=== PATIENT | male | born 1950 | race Two or more races ===

== ENCOUNTER 2025-06-28 12:04 | Inpatient (IN) | payer OTHER ==
[~2025-06-28] VITALS: Ht 172.7 cm; Wt 103.0 kg
[2025-06-28] MEDS: dilTIAZem 25 MG/5 ML VIAL IV ONE (12:48)
--- NOTE | 2025-06-28 12:58 | ED.PDOC ---
History of Present Illness HPI Comments 74M BIBA w/ prior MHx of CVA-Right Sided Deficits,DM, HTN, High Lipids;SHx of Cholecystectomy, Appendectomy and the c/c of Palpitations. EMS report on the pt having SOB/palpitations for the past 3 days. Pt went to [facility] for palpitations and they called EMS for when they arrived on scene the pt had a HR of 180 AFIB RVR. En route to the ED the pt's HR was "floating in the 150's". EMS note that the pt has not been taking his metoprolol medication for the past 3 months. Denies any other symptoms at this time. Denies chills, fever, N/V/D. Denies any other associated symptom's, modifiers, or recent injuries or sick contact at this time. Chief Complaint: Palpitations Time Seen by MD: 12:55 Reviewed Notes: Nurses Notes, Medications, Allergies Allergies: Coded Allergies: NO KNOWN ALLERGIES (Unverified , 06/28/25) Information Source: Patient, Emergency Med Personnel Mode of Arrival: EMS Severity: Moderate Timing: Days Duration: Since onset, Days Prehospital treatment: None Past Medical History PAST MEDICAL HISTORY: CVA (right sided deficit), DM, High Lipids, HTN Surgical History: Appendectomy, Cholecystectomy Family History Family History: Reviewed,noncontributory to illness, Unknown Social History Smoker: Non-Smoker Alcohol: Denies ETOH Use Drugs: Denies Drug Use Lives In: Home Constitutional: denies: chills, diaphoresis, fatigue, fever, malaise, sweats, weakness, others EENTM: denies: blurred vision, double vision, ear bleeding, ear discharge, ear drainage, ear pain, ear ringing, eye pain, eye redness, hearing loss, mouth pain, mouth swelling, nasal discharge, nose bleeding, nose congestion, nose pain, photophobia, tearing, throat pain, throat swelling, voice changes, others Respiratory: reports: shortness of breath; denies: cough, hemoptysis, orthopnea, SOB at rest, SOB with excertion, stridor, wheezing, others Cardiovascular: reports: chest pain, palpitations; denies: dizzy spells, di aphoresis, Dyspnea on exertion, edema, irregular heart beat, left arm pain, lightheadedness, PND, syncope, others Gastrointestinal: denies: abdomen distended, abdominal pain, blood streaked bowels, constipated, diarrhea, dysphagia, difficulty swallowing, hematemesis, melena, nausea, poor appetite, poor fluid intake, rectal bleeding, rectal pain, vomiting, others Genitourinary: denies: burning, dysuria, flank pain, frequency, hematuria, incontinence, penile discharge, penile sore, pain, testicle pain, testicle swelling, urgency, others Neurological: denies: dizziness, fainting, headache, left sided numbness, left sided weakness, numbness, paresthesia, pre-existing deficit, right sided numbness, right sided weakness, seizure, speech problems, tingling, tremors, weakness, others Musculoskeletal: denies: back pain, gout, joint pain, joint swelling, muscle pain, muscle stiffness, neck pain, others Integumetry: denies: bruises, change in color, change in hair/nails, dryness, laceration, lesions, lumps, rash, wounds, others Allergic/Immunocompromised: denies: Difficulty Healing, Frequent Infections, Hives, Itching, others Hematologic/Lymphatic: denies: anemia, blood clots, easy bleeding, easy bruising, swollen glands, others Endocrine: denies: excessive hunger, excessive sweating, excessive thirst, excessive urination, flushing, intolerance to cold, intolerance to heat, unexplained weight gain, unexplained weight loss, others Psychiatric: denies: anxiety, bipolar disorder, depression, hopeless, panic disorder, schizophrenia, sleepless, suicidal, others All Other Systems: Reviewed and Negative Physical Exam General Appearance: Moderate Distress HEENT: Normal ENT Inspection, Pharynx Normal, TMs Normal Neck: Full Range of Motion, Non-Tender, Normal, Normal Inspection Respiratory: Chest Non-Tender, Lungs Clear, No Accessory Muscle Use, No Respiratory Distress, Normal Breath Sounds Cardiovascular: Irregular, No Edema, No JVD, No Murmur, No Gallop, Tachycardia Breast Exam: Deferred Gastrointestinal: No Organomegaly, Non Tender, No Pulsatile Mass, Normal Bowel Sounds, Soft Genitalia: Deferred Pelvic: Deferred Rectal: Deferred Extremities: No calf tenderness, Normal capillary refill, No pedal edema Musculoskeletal : Apperance: Normal Neurologic: Alert, document control clerk II-XII nml as Tested, Motor Weakness, Normal Affect, Normal Mood, No Sensory Deficits Cerebellar Function: Unable to Test Reflexes: Normal Skin: Dry, Pallor, Warm Lymphatic: No Adenopathy Was a procedure done? Was a procedure done?: No EKG EKG : Pulse Rate (adult): 123 [place]: Normal Cardiac Rhythm: Afib ST: Nonsp Differential Dx Considerations may include: Non STEMI, atrial fibrillation with rapid response, generalized weakness, electrolyte imbalance X-Ray, Labs, Meds, VS Vital Signs Date Time Temp Pulse Resp B/P (MAP) Pulse Ox O2 Delivery O2 Flow Rate FiO2 06/28/25 12:59 123 06/28/25 12:27 98.1 185 20 169/72 100 98.1 06/28/25 12:04 152 Lab Test 06/28/25 14:30 06/28/25 13:30 Range/Units Troponin I High Sensitivity 542 *H 461 *H </=54 ng/L White Blood Count 8.8 4.4-10.8 10^3/uL Red Blood Count 4.96 4.5-5.90 10^6/uL Hemoglobin 13.7 13.5-17.5 g/dL Hematocrit 41.4 41.0-53.0 % Mean Corpuscular Volume 83.4 80.0-100.0 fL Mean Corpuscular Hemoglobin 27.7 L 28.0-32.0 pg Mean Corpuscular Hemoglobin Concent 33.2 32.0-36.0 g/dL Red Cell Distribution Width 14.4 H 11.8-14.3 % Platelet Count 219 140-450 10^3/uL Mean Platelet Volume 8.8 6.9-10.8 fL Neutrophils (%) (Auto) 77.2 37.0-80.0 % Lymphocytes (%) (Auto) 16.8 10.0-50.0 % Monocytes (%) (Auto) 5.3 0.0-12.0 % Eosinophils (%) (Auto) 0.3 0.0-7.0 % Basophils (%) (Auto) 0.4 0.0-2.0 % Neutrophils # (Auto) 6.8 1.6-8.6 10 ^3/uL Lymphocytes # (Auto) 1.5 0.4-5.4 10 ^3/uL Monocytes # (Auto) 0.5 0-1.3 10 ^3/uL Eosinophils # (Auto) 0 0-0.8 10 ^3/uL Basophils # (Auto) 0 0-0.2 10 ^3/uL Nucleated Red Blood Cells 0.0 % Sodium Level 131 L 136-145 mmol/L Potassium Level 4.3 3.5-5.1 mmol/L Chloride Level 98 98-107 mmol/L Carbon Dioxide Level 20 20-31 mmol/L Anion Gap 13 5-15 Blood Urea Nitrogen 13 9-23 mg/dL Creatinine 1.27 0.700-1.30 mg/dL Glomerular Filtration Rate Calc 60 >90 mL/min BUN/Creatinine Ratio 10.2 10.0-20.0 Serum Glucose 295 H 74-106 mg/dL Calcium Level 9.0 8.7-10.4 mg/dL Magnesium Level 1.7 1.6-2.6 mg/dL B-Type Natriuretic Peptide 302.02 0-100 pg/mL Current Medications Medications (Trade) Dose Ordered Sig/Jesse Route Start Time Stop Time Status Last Admin Aspirin 162 mg ONCE ONCE PO 06/28/25 12:30 06/28/25 12:31 DC 06/28/25 12:48 Diltiazem HCl (Cardizem Injection) 10 mg ONCE ONCE IV 06/28/25 12:30 06/28/25 12:31 DC 06/28/25 12:48 IV Hep-Lock was established. The patient's CBC is within normal limits. The chemistry panel is within normal limits except for hyperglycemia at 295 The BNP is 302.02 The chest x-ray was done and shows: There is no sign of any abnormalities The patient's initial heart rate was in the 185 range The patient's heart rate has now come down to 119 on Cardizem of 10 mg IV push The patient is being started on a Cardizem drip. The patient will be admitted to the hospitalist A cardiology consult will be obtained Critical Care involved bedside management of the patient and consultation with the hospitalist Critical Care involved evaluation of the imaging as well as the laboratory results. The patient will be admitted at this time The patient is also being started on a heparin drip secondary to possible non STEMI Images Reviewed?: Images reviewed and evaluated by me Time of 1ST Reevaluation: 13:25 Reevaluation 1ST: Unchanged Patient Education/Counseling: Diagnosis, Treatment, Prognosis Family Education/Counseling: No Family Present SEPSIS Sepsis Screen Physician Orders Electrocardigram (06/28/25 12:15) Electrocardigram (06/28/25 13:15) Electrocardigram (06/28/25 15:15) Chest Portable (06/28/25 12:29) Heplock Iv (06/28/25 12:29) Director Of Product Development (06/28/25 12:29) Blood Pressure (06/28/25 12:29) Pulse Oximetry (06/28/25 12:29) Urinalysis (06/28/25 12:29) Troponin-I Hs (06/28/25 15:29) Vital Signs Date Time Temp Pulse Resp B/P (MAP) Pulse Ox O2 Delivery O2 Flow Rate FiO2 06/28/25 12:59 123 06/28/25 12:27 98.1 185 20 169/72 100 98.1 06/28/25 12:04 152 Laboratory Tests Test 06/28/25 13:30 White Blood Count 8.8 10^3/uL (4.4-10.8) Medications Medications Dose Ordered Sig/Jesse Route Start Time Stop Time Status Last Admin Dose Admin Aspirin 162 mg ONCE ONCE PO 06/28/25 12:30 06/28/25 12:31 DC 06/28/25 12:48 Diltiazem HCl 10 mg ONCE ONCE IV 06/28/25 12:30 06/28/25 12:31 DC 06/28/25 12:48 Departure 1 Departure Time of Disposition: 16:46 Impression: Primary Impression: Atrial fibrillation with rapid ventricular response Additional Impressions: Acute myocardial ischemia Non-STEMI (non-ST elevated myocardial infarction) Disposition: 09 ADMITTED INPATIENT Admit to: ICU Condition: Fair Critical Care Note Critical Care Time?: Yes (55 min-critical care time only) Stability Stability form required: No Heart Score Heart Score: Heart Score Response (Comments) Value History Moderate Suspicious 1 EKG Repolarization Disturb 1 Age >65 2 Risk Factors >3 or Hx ASHD 2 Troponin Normal limit 0 Total 6 I personally scribed for ELISA SILVER MD ([email or web address]) on 06/28/25 at 12:58. Electronically submitted by Tr Mejia ([email or web address]). ELISA SILVER MD Jun 28, 2025 12:58
--- NOTE | 2025-06-28 13:14 | DVH ---
INDICATION: Palpitation TECHNIQUE: Frontal view of the chest. COMPARISON: None FINDINGS: . The heart and mediastinal contours are grossly unremarkable. There is no evidence of pleural disea se. The lungs are clear. The bony structures of the chest are intact without fracture. IMPRESSION: 1. No evidence of acute disease.
[2025-06-28 13:30] VITALS: PULSE 110; RESP 24; O2SAT 94
[2025-06-28 13:59] LABS: Hematocrit 41.4 % (41.0-53.0); Hemoglobin 13.7 g/dL (13.5-17.5); Mean Corpuscular Hemoglobin 27.7 pg (28.0-32.0); Mean Corpuscular Volume 83.4 fL (80.0-100.0); Nucleated Red Blood Cells % 0.0 %
[2025-06-28 14:18] LABS: Potassium 4.3 mmol/L (3.5-5.1)
[2025-06-28 14:19] LABS: Anion Gap 13 (5-15)
[2025-06-28 14:20] LABS: Calcium 9.0 mg/dL (8.7-10.4)
[2025-06-28 14:21] LABS: Chloride 98 mmol/L (98-107); Sodium 131 mmol/L (136-145)
[2025-06-28 14:22] LABS: Carbon Dioxide 20 mmol/L (20-31)
[2025-06-28 14:25] LABS: BUN/Creatinine Ratio 10.2 (10.0-20.0); Blood Urea Nitrogen 13 mg/dL (9-23); Magnesium 1.7 mg/dL (1.6-2.6)
[2025-06-28 14:28] LABS: Glucose 295 mg/dL (74-106)
[2025-06-28 17:53] LABS: INR 1.19 (0.9-1.15); Partial Thromboplastin Time 45.1 SEC (24.5-34.5); Prothrombin Time 12.4 sec (9.3-11.8)
[2025-06-28 18:23] LABS: Urine Protein, UAD Negative (Negative)
[2025-06-28] MEDS: HEPARIN DRIP/D5W 100UNITS/ML 250 ML IV SCH (18:36)
[2025-06-28] MEDS ORDERED: DEXTROSE (50%) 50ML SYRG IV PRN (19:15)
[2025-06-28] MEDS ORDERED: NITROGLYCERIN 0.4 MG SL TAB SL PRN (19:15)
[2025-06-28] MEDS ORDERED: ONDANSETRON HCL 4 MG/2 ML VIAL IV PRN (19:15)
[2025-06-28] MEDS ORDERED: MORPHINE SULFATE INJ 2 MG/ml SYRG IV PRN (19:15)
--- NOTE | 2025-06-28 19:19 | ECG ---
[facility] Test Date: 2025-06-28 Test Time: 12:03:53 Pat Name: DIVYA GIARLDO Department: [facility] ED Patient ID: [facility]-[id number] Room: [address] Gender: M Vision Mixer: : 1950 Requested By: EMERGENCY EMERGENCY Order Number: [id number] Reading MD: Paul Mtz Measurements Intervals [place] Rate: 152 P: 0 [place]: 48 QRS: -63 QRSD: 110 T: 83 QT: 316 QTc: 503 Interpretive Statements Supraventricular tachycardia Markedly posterior QRS axis Anteroseptal infarct, old Nonspecific T abnormalities, lateral leads Electronically Signed On 07-03-2025 14:19:17 PDT by Paul Mtz Please click the below link to view image of tracing.
--- NOTE | 2025-06-28 19:20 | ECG ---
[facility] Test Date: 2025-06-28 Test Time: 12:59:07 Pat Name: DIVYA GIRALDO Department: [facility] ED Patient ID: [facility]-[id number] Room: 024[facility] Gender: M Brush Or Broom Cutter: : 1950 Requested By: EMERGENCY EMERGENCY Order Number: [id number] Reading MD: Paul Mtz Measurements Intervals [place] Rate: 123 P: 0 SD: 0 QRS: -44 QRSD: 105 T: 115 QT: 361 QTc: 517 Interpretive Statements Atrial fibrillation Left axis deviation Anteroseptal infarct, old Nonspecific T abnormalities, lateral leads Prolonged QT interval Electronically Signed On 07-03-2025 14:20:02 PDT by Paul Mtz Please click the below link to view image of tracing.
[2025-06-28 20:28] VITALS: PULSE 115; RESP 22; O2SAT 93
[2025-06-28] MEDS: InsuLIN REG 1unit/0.01ml Soln (100units/ml) SC SCH (21:59)
[2025-06-28] MEDS: ACCU-CHEK COMFORT CURVE STRIP VI SCH (21:59)
--- NOTE | 2025-06-28 23:15 | DVHHP2 ---
History of Present Illness Reason for Visit: Palpitations History of Present Illness 74-year-old male presents for evaluation of palpitations. Patient endorses a two day history of palpitations with associated chest pressure and shortness for breath. On arrival patient was noted to be in AFib with RVR in the 150s. Currently patient is on diltiazem drip with a heart rate controlled in the low 100s. No nausea or vomiting. No other acute complaints reported. Past Medical History Dyslipidemia, hypertension, AFib, diabetes mellitus, CVA with right-sided defi cits Past Surgical History Cholecystectomy, appendectomy Family History Noncontributory Smoke: No ALCOHOL: none Drugs: None Lives: with Family Review of Systems Review of Systems Review of systems are currently negative otherwise addressed in HPI. Allergies: Coded Allergies: NO KNOWN ALLERGIES (Unverified , 06/28/25) Medications Current Medications Medications Dose Ordered Sig/Jesse Route Start Time Stop Time Status Last Admin Dose Admin Heparin Sodium/ Dextrose 250 ml @ 10 mls/hr Q24H IV 06/28/25 17:00 06/28/25 18:36 10 MLS/HR Ondansetron HCl 4 mg Q4HP PRN IV 06/28/25 19:15 Diagnostic Test (Pha) 1 strip ACHS 06/28/25 22:00 06/28/25 21:59 1 STRIP Insulin Human Regular ACHS SC 06/28/25 22:00 06/28/25 21:59 4 UNITS Dextrose 50 ml UD PRN IV 06/28/25 19:15 Nitroglycerin 0.4 mg Q5MINP PRN SL 06/28/25 19:15 Morphine Sulfate 2 mg Q30M PRN IV 06/28/25 19:15 Atorvastatin Calcium 40 mg HS PO 06/29/25 22:00 UNV Diltiazem HCl 100 ml @ 5 mls/hr Q20H IV 06/28/25 23:15 UNV Exam Vital Signs Vital Signs Date Time Temp Pulse Resp B/P (MAP) Pulse Ox O2 Delivery O2 Flow Rate FiO2 06/28/25 21:30 133/62 06/28/25 21:30 97 16 97 06/28/25 20:28 Room Air* 0 21 06/28/25 19:30 97.6 97.6 Exam Gen: 74-year-old male in mild distress. Skin: Warm, dry, normal color and texture, no rash. HEENT: Normocephalic atraumatic, mucous membranes moist and pink. Neck: Cervical and supraclavicular nodes normal without enlargement, trachea is midline, thyroid gland is normal without masses. Pulmonary: Clear to auscultation and percussion bilaterally. Cardiac: Irregular Abdomen: Soft, nontender, nondistended, bowel sounds present all 4 quadrants, no guarding, no rigidity, no organomegaly. Extremities: No cyanosis, clubbing, no edema Neuro: Cranial nerves II through XII grossly intact, normal affect and speech, no focal motor deficits. Labs/Xrays ORDERING PHYSICIAN: ELISA SILVER MD PROCEDURE(s): CXRP - CHEST PORTABLE REASON: Palpitation ORDER NUMBER(s): [id number], ACCESSION NUMBER(s): [id number] INDICATION: Palpitation TECHNIQUE: Frontal view of the chest. COMPARISON: None FINDINGS: . The heart and mediastinal contours are grossly unremarkable. There is no evidence of pleural disease. The lungs are clear. The bony structures of the chest are intact without fracture. IMPRESSION: 1. No evidence of acute disease. ATED BY: GIANFRANCO KOEHLER MD DICTATED DATE/TIME: 06/28/25 1311 Labs Test 06/28/25 21:53 06/28/25 17:14 06/28/25 17:12 06/28/25 13:30 Range/Units POC Glucose 227 H 70-106 mg/dl Prothrombin Time 12.4 H 9.3-11.8 sec Prothrombin Time INR 1.19 H 0.9-1.15 Activated Partial Thromboplast Time 45.1 H 24.5-34.5 SEC Troponin I High Sensitivity 827 *H </=54 ng/L Thyroid Stimulating Hormone (TSH) 1.43 0.55-4.78 uIU/mL Urine Color Colorless Yellow Urine Clarity Clear Clear Urine pH 5.0 5.0-9.0 Urine Specific [place] 1.005 1.001-1.035 Urine Protein Negative Negative Urine Ketones Negative Negative Urine Blood Negative Negative /uL Urine Nitrite Negative Negative Urine Bilirubin Negative Negative Urine Urobilinogen Normal Negative mg/dL Urine Leukocyte Esterase Negative Negative /uL Urine RBC 1 0 - 3 /hpf Urine Microscopic WBC < 1 0-3 /HPF Urine Squamous Epithelial Cells None seen <5 /hpf Urine Bacteria None seen None Seen /hpf Urine Glucose 2+ H Normal mg/dL White Blood Count 8.8 4.4-10.8 10^3/uL Red Blood Count 4.96 4.5-5.90 10^6/uL Hemoglobin 13.7 13.5-17.5 g/dL Hematocrit 41.4 41.0-53.0 % Mean Corpuscular Volume 83.4 80.0-100.0 fL Mean Corpuscular Hemoglobin 27.7 L 28.0-32.0 pg Mean Corpuscular Hemoglobin Concent 33.2 32.0-36.0 g/dL Red Cell Distribution Width 14.4 H 11.8-14.3 % Platelet Count 219 140-450 10^3/uL Mean Platelet Volume 8.8 6.9-10.8 fL Neutrophils (%) (Auto) 77.2 37.0-80.0 % Lymphocytes (%) (Auto) 16.8 10.0-50.0 % Monocytes (%) (Auto) 5.3 0.0-12.0 % Eosinophils (%) (Auto) 0.3 0.0-7.0 % Basophils (%) (Auto) 0.4 0.0-2.0 % Neutrophils # (Auto) 6.8 1.6-8.6 10 ^3/uL Lymphocytes # (Auto) 1.5 0.4-5.4 10 ^3/uL Monocytes # (Auto) 0.5 0-1.3 10 ^3/uL Eosinophils # (Auto) 0 0-0.8 10 ^3/uL Basophils # (Auto) 0 0-0.2 10 ^3/uL Nucleated Red Blood Cells 0.0 % Sodium Level 131 L 136-145 mmol/L Potassium Level 4.3 3.5-5.1 mmol/L Chloride Level 98 98-107 mmol/L Carbon Dioxide Level 20 20-31 mmol/L Anion Gap 13 5-15 Blood Urea Nitrogen 13 9-23 mg/dL Creatinine 1.27 0.700-1.30 mg/dL Glomerular Filtration Rate Calc 60 >90 mL/min BUN/Creatinine Ratio 10.2 10.0-20.0 Serum Glucose 295 H 74-106 mg/dL Calcium Level 9.0 8.7-10.4 mg/dL Magnesium Level 1.7 1.6-2.6 mg/dL B-Type Natriuretic Peptide 302.02 0-100 pg/mL SEPSIS Sepsis Screen Date sepsis recognized/suspect: Jun 28, 2025 Time Sepsis recognized/suspect: 1929 Recent Procedure: No On Antibiotic Therapy: No Respiratory Rate >20: Yes Heart Rate >90: Yes Temp<36 C (96.8 F) or >38.3 C: No SBP <90 or MAP <65 mmHG: No New Acute Mental Status Change: No Is the patient on CPAP, BIPAP,: No Physician Orders Diltiazem 125mg/125ml Bag Kit (Cardizem) (06/28/25 17:00) Heparin Drip/D5w 100units/Ml (06/28/25 17:00) Complete Blood Count (06/29/25 04:00) PTPTT (06/29/25 00:30) Heparin Per Pharmacy Protocol (06/28/25 18:24) * Cardiology Consult (06/28/25 19:13) Basic Metabolic Panel (06/29/25 04:00) Admit (06/28/25 19:13) Ondansetron Hcl (Zofran) (06/28/25 19:15) Cardiac Diet-2gna,Lofat,Lochol (06/29/25 Breakfast) Echo 2d Mode Cardiac Dop (06/28/25 19:13) Condition: Critical (06/28/25 19:13) Bedrest With Bathroom Privileg (06/28/25 19:13) Glucose Blood (Accu-Chek Comfort Curve T (06/28/25 22:00) Insulin R (Human) (Insulin R) (06/28/25 22:00) Dextrose 50% Syringe (06/28/25 19:15) Nitroglycerin Sublingual (Ntrostat Subli (06/28/25 19:15) Morphine Sulfate Injection (06/28/25 19:15) Stat Ekg For Chest Pain (06/28/25 19:13) Notify Of Changes From Base (06/28/25 19:13) Cash Register Operator For 24 Hours (06/28/25 19:13) Emergency Dysrhythmia Protocol (06/28/25 19:13) Rhythm Strips Once Every Shift (06/28/25 19:13) Oxygen By Nasal Cannula (06/28/25 19:13) Troponin-I Hs (06/28/25 23:06) Atorvastatin (Lipitor) (06/28/25 23:15) Atorvastatin (Lipitor) (06/29/25 22:00) Diltiazem 125mg/125ml Bag Kit (Cardizem) (06/28/25 23:15) Vital Signs Date Time Temp Pulse Resp B/P (MAP) Pulse Ox O2 Delivery O2 Flow Rate FiO2 06/28/25 21:30 133/62 06/28/25 21:30 97 16 133/62 (85) 97 06/28/25 21:15 90 31 123/60 (81) 95 06/28/25 21:00 97 38 105/65 (78) 97 06/28/25 20:45 90 31 123/60 (81) 95 06/28/25 20:30 128/56 06/28/25 20:30 85 29 128/56 (80) 98 06/28/25 20:28 115 22 93 Room Air* 0 21 06/28/25 20:15 92 34 117/62 (80) 96 06/28/25 20:00 107 38 124/90 (101) 99 06/28/25 19:45 126 33 107/71 (83) 96 06/28/25 19:30 97.6 115 22 129/72 (91) 93 97.6 06/28/25 18:15 136 23 135/99 (111) 96 06/28/25 18:00 122 16 90/71 (77) 97 06/28/25 17:44 141/83 06/28/25 16:49 123 06/28/25 16:00 111 20 148/88 (108) 97 06/28/25 16:00 117 Laboratory Tests Test 06/28/25 13:30 White Blood Count 8.8 10^3/uL (4.4-10.8) Medications Medications Dose Ordered Sig/Jesse Route Start Time Stop Time Status Last Admin Dose Admin Aspirin 162 mg ONCE ONCE PO 06/28/25 12:30 06/28/25 12:31 DC 06/28/25 12:48 162 MG Diagnostic Test (Pha) 1 strip ACHS 06/28/25 22:00 06/28/25 21:59 1 STRIP Diltiazem HCl 10 mg ONCE ONCE IV 06/28/25 12:30 06/28/25 12:31 DC 06/28/25 12:48 10 MG Diltiazem HCl 125 ml @ 5 mls/hr Q24H ONCE IV 06/28/25 17:00 06/29/25 16:59 06/28/25 17:44 5 MLS/HR Heparin Sodium/ Dextrose 250 ml @ 10 mls/hr Q24H IV 06/28/25 17:00 06/28/25 18:36 10 MLS/HR Insulin Human Regular ACHS SC 06/28/25 22:00 06/28/25 21:59 4 UNITS Assessment/Plan Assessment/Plan Assessment AFib with RVR Elevated troponin rule out NSTEMI Diabetes mellitus Plan Admit the patient to ICU to the hospitalist Continue diltiazem Heparin drip Cardiology consultation Continue treatment per orders Total critical care time excluding procedures performed this 50 minutes. Plan discussed with: Patient My Orders Orders - YOBANY HERNANDEZ Procedure Category Date Status Time * Cardiology Consult CONS 06/28/25 Transmitted 19:13 Basic Metabolic Panel LAB 06/29/25 Verified 04:00 Admit ADMIT 06/28/25 Transmitted 19:13 Ondansetron Hcl PHA 06/28/25 In Process (Zofran) 19:15 Cardiac DIET 06/29/25 Transmitted Diet-2gna,Lofat,Lochol Breakfast Echo 2d Mode Cardiac US 06/28/25 Logged DOP 19:13 Condition: Critical GRADY 06/28/25 In Process 19:13 Bedrest With Bathroom GRADY 06/28/25 In Process Privileg 19:13 Glucose Blood PHA 06/28/25 In Process (Accu-Chek Comfort 22:00 Insulin R (Human) PHA 06/28/25 In Process (Insulin R) 22:00 Dextrose 50% Syringe PHA 06/28/25 In Process 19:15 Nitroglycerin PHA 06/28/25 In Process Sublingual (Ntrostat 19:15 Morphine Sulfate PHA 06/28/25 In Process Injection 19:15 Stat Ekg For Chest GRADY 06/28/25 In Process Pain 19:13 Notify Md Of Changes GRADY 06/28/25 In Process From Base 19:13 Cash Register Operator For GRADY 06/28/25 In Process 24 Hours 19:13 Emergency Dysrhythmia GRADY 06/28/25 In Process Protocol 19:13 Rhythm Strips Once GRADY 06/28/25 In Process Every Shift 19:13 Oxygen By Nasal RT 06/28/25 Transmitted Cannula 19:13 Troponin-I Hs LAB 06/28/25 Logged 23:06 Atorvastatin (Lipitor) PHA 06/28/25 Logged 23:15 Atorvastatin (Lipitor) PHA 06/29/25 Logged 22:00 Diltiazem 125mg/125ml PHA 06/28/25 Logged Bag Kit (Cardizem) 23:15 Date of Service: Jun 28, 2025 Billing Provider: YOBANY HERNANDEZ Common Visit Codes: [id number] CARE 30-74 MIN YOBANY HERNANDEZ Jun 28, 2025 23:15
[2025-06-29] VITALS (88 sets, daily range): BP systolic 63–143; BP diastolic 38–104; PULSE 61–199; RESP 12–36; TEMP 96.8–98.4; O2SAT 30–100
[2025-06-29] MEDS: ATORVASTATIN 20 MG TAB PO ONE
--- NOTE | 2025-06-29 00:41 | ECG ---
[facility] Test Date: 2025-06-29 Test Time: 00:32:20 Pat Name: DIVYA GIRALDO Department: [facility] ED Patient ID: [facility]-[id number] Room: [address] Gender: M Sales Ambassador: LOUISE : 1950 Requested By: YOBANY HERNANDEZ Order Number: [id number] Reading MD: Paul Mtz Measurements Intervals [place] Rate: 101 P: 0 MN: 0 QRS: -66 QRSD: 106 T: 212 QT: 450 QTc: 584 Interpretive Statements Atrial fibrillation Ventricular premature complex LAD, consider left anterior fascicular block Anteroseptal infarct, age indeterminate Lateral leads are also involved Prolonged QT interval Baseline wander in lead(s) I,III,aVL Electronically Signed On 07-03-2025 14:23:35 PDT by Paul Mtz Please click the below link to view image of tracing.
[2025-06-29 00:42] LABS: INR 1.14 (0.9-1.15); Partial Thromboplastin Time 53.2 SEC (24.5-34.5); Prothrombin Time 11.9 sec (9.3-11.8)
[2025-06-29] MEDS: NOREPINEPHRINE 8 MG/250ML KIT 250 ML IV SCH (06:15)
[2025-06-29] MEDS: PHENYLEPHRINE IV 250 ML IV ONE (06:19)
[2025-06-29] MEDS: MIDAZOLAM DRIP 50 mg/50mL 50 ML IV ONE (06:19)
[2025-06-29] MEDS: fentaNYL Drip 2500mCg/250mlNS 250 ML IV ONE (06:19)
[2025-06-29 06:32] LABS: Hematocrit 45.6 % (41.0-53.0); Hemoglobin 14.5 g/dL (13.5-17.5); Mean Corpuscular Hemoglobin 27.3 pg (28.0-32.0); Mean Corpuscular Volume 85.5 fL (80.0-100.0)
[2025-06-29] MEDS: EPINEPHrine HCL 1 MG/10 ML SYRG ONE ×2 (06:32→15:46)
[2025-06-29 06:34] LABS: Chloride 100 mmol/L (98-107); Potassium 3.6 mmol/L (3.5-5.1); Sodium 137 mmol/L (136-145)
[2025-06-29 06:35] LABS: Anion Gap 17 (5-15); Carbon Dioxide 20 mmol/L (20-31)
[2025-06-29] MEDS: fentaNYL Drip 2500mCg/250mlNS 250 ML IV SCH (06:38)
[2025-06-29] MEDS: MIDAZOLAM DRIP 50 mg/50mL 50 ML IV SCH (06:39)
[2025-06-29 06:40] LABS: BUN/Creatinine Ratio 12.1 (10.0-20.0); Blood Urea Nitrogen 15 mg/dL (9-23); INR 1.08 (0.9-1.15); Partial Thromboplastin Time 41.5 SEC (24.5-34.5); Prothrombin Time 11.4 sec (9.3-11.8)
[2025-06-29 06:41] LABS: Calcium 10.7 mg/dL (8.7-10.4); Glucose 327 mg/dL (74-106)
--- NOTE | 2025-06-29 06:57 | DVH ---
CHEST RADIOGRAPH Indication: Intubation. Technique: Single frontal view of the chest was obtained Comparison: XY CHEST PORTABLE on DOS: 06/28/25 FINDINGS: Lines and Tubes: The endotracheal tube terminates 4.2 cm above the kolby Lungs: Bilateral increased interstitial prominence. No focal consolidation. Pleura: No effusion. No pneumothorax. Cardiomediastinal contours: Cardiomegaly. Bones: No acute osseous abnormality. IMPRESSION: 1. Cardiomegaly with mild pulmonary vascular congestion.
[2025-06-29 07:00] LABS: Lactic Acid w/Reflex 7.6 mmol/L (0.4-2.0)
[2025-06-29] MEDS: PHENYLEPHRINE IV 250 ML IV SCH (07:00)
[2025-06-29] MEDS ORDERED: VASOPRESSIN 20 UNITS in SODIUM CHL 0.9% 99 ML IV SCH (07:30)
[2025-06-29 07:44] LABS: Total Cells Counted 100.0 (100)
[2025-06-29 07:45] LABS: RBC Morphology Normal
--- NOTE | 2025-06-29 07:57 | RESUS ---
CODE BLUE ASSESSSMENT History of Events History of Events: 74-year-old male presents for evaluation of palpitations. Patient endorses a two day history of palpitations with associated chest pressure and shortness for breath. On arrival patient was noted to be in AFib with RVR in the 150s. Currently patient is on diltiazem drip with a heart rate controlled in the low 100s. No nausea or vomiting. No other acute complaints reported. Initial Information Date: Jun 29, 2025 Location of Arrest: [place] [facility] Witnessed: Yes CPR started initial time: 05:52 CPR started by whom: Hospital Staff Pre-Hospital Care: ACLS Type of arrest: Cardiac, Adult, Witnessed Spontaneous Respirations: No Pulse Present: No Monitoring: ECG, Pulse Oximetry Crash Cart Opened and Supplies: Yes Airway Ventilation Breathing at Onset: Assisted O2 Sat by Pulse Oximetry: 97 Oxygen Delivery Method: Ambu-Bag Artificial Ventilation: Bag/Endo tube Intubation Time: 06:03 Intubation Size: 8.0 cuffed Intubated by: Dr. Parker Intubation Attempts: 1 Intubated orally: Yes Tube secured at: 26 (@ lip) CO2 indicator used: Yes Confirmation: Auscultation, Chest X-ray Comments: INTUBATED POST CODE- Circulation Circulation #1: Time: 05:52 Pulse Rate (adult): 0 Circulation Comment: Code Blue started- compresssions Circulation #2: Time: 05:54 Pulse Rate (adult): 0 Circulation Comment: asystole Circulation #3: Time: 05:56 Pulse Rate (adult): 174 Circulation Comment: shockackable vfib rythm 120 Circulation #4: Time: 05:58 Pulse Rate (adult): 147 Circulation Comment: ROSC Post code- attempted sync cardioversion Circulation #5: Time: 06:01 Pulse Rate (adult): 0 Circulation Comment: PEA- cpr restarted Circulation #6: Time: 06:03 Pulse Rate (adult): 164 Blood Pressure Systolic: 95 Blood Pressure Diastolic: 46 Circulation Comment: Vfib- shocked at 200 ROSC Defibrillation Defbrillation #1: Time Defibrillator Applied: 05:56 EKG Rhythm: V-Fibrillation Compressions: Manual Defib. Joules: 120 Pulse Present: Yes EKG Rhythm: Atrial Fibrillation Defbrillation #2: Time Defibrillator Applied: 06:03 EKG Rhythm: V-Fibrillation Compressions: Manual Defib. Joules: 200 Pulse Present: Yes EKG Rhythm: Atrial Fibrillation Procedure - IV Procedure - IV #1: IV Side: Left IV Location: Antecubital IV Placed: In Hospital IV Gauge: 20 IV Line Care: Saline Flush Procedure - IV #2: IV Side: Left IV Location: Forearm Anterior IV Placed: In Hospital IV Gauge: 20 Medications & Response Medications and Responses #1: Medication Time: 05:53 ADULT Medications Given ADULT: Epinephrine 1 mg Route of Administration: IV Heart Rate: 0 Medications and Responses #2: Medication Time: 05:56 ADULT Medications Given ADULT: Epinephrine 1 mg, Sodium Bacarbinate 50 meq, Calcium Chloride 10 mL Medications and Responses #3: Medication Time: 06:03 ADULT Medications Given ADULT: Epinephrine 1 mg, Magnesium Sulfate 1 gm Medications and Responses #4: Medication Time: 06:04 ADULT Medications Given ADULT: Amiodarone 150 mg Route of Administration: IV Medication Comment: given post code Heart Rate: 170 EKG Rhythm: Atrial Fibrillation Blood Pressure Systolic: 156 Blood Pressure Diastolic: 101 EKG Rhythm: Atrial Fibrillation Nurses Notes [place] Coma Scale Eye Opening: To Pain (2) [place] Coma Scale Verbal: None (1) [place] Coma Scale Motor: Extensor Response (2) [place] Total: 5 Pupil Reaction: ADDY Bedside Blood Glucose: 313 Nurses Notes - Comment: Intubated sp code. See above. Started on sedation, TLC IJ inserted by Dr. Parker Time Code Ended Time Code Ended: 06:03 Post Arrest Status: Ventilated Outcome of code: Successful Family notified: Yes Code Team Present: Wilma Malcolm RT, Marisela ICU charge, Cande RN Resource, Anna Marie RN, Bao CCT, Guy RN, Kristyn RN Post Resuscitation Neurologica Pupil Size: 3 Comment: equal round reactive, responding to light ROSC Time of ROSC: 06:03 Pt Meets Criteria for Therapeu: KRISTYN Burton Jun 29, 2025 07:57
[2025-06-29 07:58] LABS: Base Excess -6.2 mmol/L (-2.0-3.0)
--- NOTE | 2025-06-29 07:59 | DVH ---
CHEST RADIOGRAPH Indication: central line placement Technique: Single frontal view of the chest was obtained COMPARISON: XY CHEST XRAY 1 VIEW on DOS: 06/29/25, XY CHEST PORTABLE on DOS: 06/28/25 FINDINGS: Lines and Tubes: Endotracheal tube, enteric catheter and right central venous catheter in satisfactor y position. Lungs: Unchanged pulmonary vascular congestion. Pleura: No effusion. No pneumothorax. Cardiomediastinal contours: Unremarkable Bones: Unremarkable IMPRESSION: Right central venous catheter in satisfactory position. No appreciable pneumothorax.
--- NOTE | 2025-06-29 09:35 | CONS ---
Pharmacy Clinical Information: HEPARIN DRIP, ACS PROTOCOL @0611 APTT 41.5- NO BOLUS, NO CHANGE NEXT APTT DRAW SCHEDULED @1200 PER RX PROTOCOL CONFIRMED AND READ BACK WITH RN WEI FOFANA [facility] RESIDENT Jun 29, 2025 09:35
--- NOTE | 2025-06-29 10:14 | DVHINCON2 ---
Date Seen: Jun 29, 2025 Referring Physician Rafa Pedroza NP Reason for Consultation Elevated troponin History of Present Illness Hrady Almanza is a 74-year-old male patient who presents to ED with chief complaint of palpitation three days before his admission. Upon his arrival to the emergency department he was diagnosed with atrial fibrillation with rapid ventricular response and placed on a diltiazem drip to control his heart rate. Patient progressed with cardiac arrest secondary to ventricular arrhythmias (ventricular tachycardia and torsades de Pointe) requiring CPR and ACLS maneuvers (three epinephrine, 300 mg of amiodarone and defibrillation x2) for 8 minutes with endotracheal intubation, obtaining ROSC. Patient initially was placed on amiodarone drip, but then was discontinued and indicated magnesium due to prolonged QT. Due to clinical status obtained history of present illness and past medical history from EMR and who is at bedside. Could not obtain review of systems. Cardiology consulted for elevated troponins. 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 Ex tobacco abuse (eight pack-year history of smoking) quit 30 years ago. Denies current tobacco, alcohol and other drug abuse Allergies: Denies Home medication: Pradaxa 150 mg p.o. daily, atorvastatin 40 mg p.o. daily, hydrochlorothiazide 12.5 mg p.o. daily, lisinopril 20 mg p.o. daily, glipizide, metformin a 1000 mg p.o. b.i.d., metoprolol (he quit taking for four months since it made him tired). Patient seen and examined at bedside. Currently under sedation due to mechanical assisted ventilation, on IV vasopressors (phenylephrine and norepinephrine) and heparin drip. Could not obtain review of systems. Past Medical History Per HPI Past Surgical History Per HPI Family History Per HPI Social History Per HPI Allergies: Coded Allergies: NO KNOWN ALLERGIES (Unverified , 06/28/25) Current Medications Current Medications Medications (Trade) Dose Ordered Sig/Jesse Route PRN Reason Start Time Stop Time Status Last Admin Heparin Sodium/ Dextrose 250 ml @ 10 mls/hr Q24H IV 06/28/25 17:00 06/28/25 18:36 Ondansetron HCl (Zofran) 4 mg Q4HP PRN IV NAUSEA / VOMITING 06/28/25 19:15 06/29/25 09:16 DC Diagnostic Test (Pha) (Accu-Chek Comfort Curve T) 1 strip ACHS 06/28/25 22:00 06/29/25 07:00 Insulin Human Regular (InsuLIN R) ACHS SC 06/28/25 22:00 06/29/25 07:00 Dextrose 50 ml UD PRN IV Blood Sugar LESS THAN 60 06/28/25 19:15 Nitroglycerin (Ntrostat Sublingual) 0.4 mg Q5MINP PRN SL FOR CHEST PAIN 06/28/25 19:15 Morphine Sulfate 2 mg Q30M PRN IV FOR CHEST PAIN 06/28/25 19:15 Atorvastatin Calcium (Lipitor) 40 mg HS PO 06/29/25 22:00 Diltiazem HCl 100 ml @ 5 mls/hr Q20H IV 06/28/25 23:15 06/29/25 09:13 DC 06/29/25 00:36 Norepinephrine Bitartrate 250 ml @ 3.75 mls/hr Q24H IV 06/29/25 06:15 Midazolam HCl 50 ml @ 1 mls/hr Q24H IV 06/29/25 06:15 06/29/25 06:39 Fentanyl Citrate 250 ml @ 2.5 mls/hr Q24H IV 06/29/25 06:15 06/29/25 06:38 Amiodarone HCl 250 ml @ 20.825 mls/ hr Q12H IV 06/29/25 06:45 06/29/25 09:13 DC 06/29/25 06:45 Phenylephrine HCl 250 ml @ 30 mls/hr Q8H20M IV 06/29/25 07:00 Vasopressin 20 units/Sodium Chloride 100 ml @ 9 mls/hr Q11H7M IV 06/29/25 07:30 Magnesium Sulfate/ Dextrose 100 ml @ 100 mls/hr Q1HR IV 06/29/25 10:00 06/29/25 12:59 UNV Potassium Chloride 100 ml @ 50 mls/hr Q2H IV 06/29/25 09:15 06/29/25 15:14 UNV Review of Systems Per HPI Vital Signs Vital Signs Date Time Temp Pulse Resp B/P (MAP) Pulse Ox O2 Delivery O2 Flow Rate FiO2 06/29/25 09:20 78 18 129/60 (83) 100 06/29/25 08:03 50 06/29/25 08:00 97.3 97.3 06/29/25 08:00 Mechanical Ventilator+ 06/29/25 04:00 0 Physical Exam Patient lying in bed, under sedoanalgesia due to mechanical ventilation General: RASS -3, afebrile, mucosae are moist Cardiovascular: Normal S1 and S2. Holosystolic murmur best heard in apex which radiates towards axilla intensity 4/6. No gallops or rubs Respiratory: Mechanically assisted ventilation, equal bilateral airway entree. Clear lung sounds on auscultation Abdomen: Soft, nontender, no organomegaly, normal bowel sounds MSK/skin: Mobilization of limbs cannot be evaluated. Skin is dry and warm. Presents bilateral erythematous and ulcerated lesions. Neurological: Orientation cannot be assessed. No apparent motor no sensitive deficits. Pupils are isocoric and reactive Labs/Diagnostic Data Labs Test 06/29/25 08:55 06/29/25 07:46 06/29/25 06:11 06/29/25 05:57 Range/Units Blood Gas Specimen Type Arterial Blood Gas Sample Site Left radial Blood Gas Patient Temperature 37.0 Arterial Blood Date Drawn [id number] Arterial Blood pH 7.298 L 7.350-7.450 Arterial Blood Partial Pressure CO2 41.5 35.0-48.0 mmHg Arterial Blood Partial Pressure O2 326.3 *H 83.0-108.0 mmHg Arterial Blood HCO3 19.9 L 21.0-28.0 mmol/L Arterial Blood Oxygen Saturation 99.6 H 94.0-98.0 % Arterial Blood Base Excess -6.2 L -2.0-3.0 mmol/L Arterial Blood Oxyhemoglobin 98.6 H 94.0-98.0 % Arterial Blood Carboxyhemoglobin 0.5 0.5-1.5 % Arterial Blood Methemoglobin 0.5 0.0-1.5 % Ryan Test Modified Blood Gas Total Hemoglobin 14.20 13.5-17.5 g/dL Blood Gas Set Respiration Rate 18.0 Blood Gas Modality Vent - ac Blood Gas Spontaneous Rate 31 FiO2 % 100.0 Blood Gas Tidal Volume 500.0 Blood Gas PEEP or CPAP 5.0 Blood Gas Critical Value Read Back Yes Blood Gas Notified Whom Blood Gas Notified Time [id number] Blood Gas Notified By Wilma rincon rt White Blood Count 8.0 4.4-10.8 10^3/uL Red Blood Count 5.34 4.5-5.90 10^6/uL Hemoglobin 14.5 13.5-17.5 g/dL Hematocrit 45.6 # 41.0-53.0 % Mean Corpuscular Volume 85.5 80.0-100.0 fL Mean Corpuscular Hemoglobin 27.3 L 28.0-32.0 pg Mean Corpuscular Hemoglobin Concent 31.9 L 32.0-36.0 g/dL Red Cell Distribution Width 15.2 H 11.8-14.3 % Platelet Count 197 140-450 10^3/uL Mean Platelet Volume 9.3 6.9-10.8 fL Neutrophils (%) (Auto) 37.0-80.0 % Lymphocytes (%) (Auto) 10.0-50.0 % Monocytes (%) (Auto) 0.0-12.0 % Basophils (%) (Auto) 0.0-2.0 % Neutrophils # (Auto) 1.6-8.6 10 ^3/uL Lymphocytes # (Auto) 0.4-5.4 10 ^3/uL Monocytes # (Auto) 0-1.3 10 ^3/uL Differential Total Cells Counted 100.0 100 Neutrophils % (Manual) 31 L 37.0-80.0 Band Neutrophils % (Manual) 0 Lymphocytes % (Manual) 65 H 10.0-50.0 Monocytes % (Manual) 2 0-12 Eosinophils % (Manual) 1 0-7 Basophils % (Manual) 0 0.0-2.0 Metamyelocytes % (manual) 1 Myelocytes % (Manual) 0 Promyelocytes % (Manual) 0 Blast Cells % (Manual) 0 Reactive Lymphocytes 0 Platelet Estimate Adequate Red Blood Cell Morphology Normal Prothrombin Time 11.4 9.3-11.8 sec Prothrombin Time INR 1.08 0.9-1.15 Activated Partial Thromboplast Time 41.5 H 24.5-34.5 SEC Sodium Level 137 # 136-145 mmol/L Potassium Level 3.6 3.5-5.1 mmol/L Chloride Level 100 98-107 mmol/L Carbon Dioxide Level 20 20-31 mmol/L Anion Gap 17 H 5-15 Blood Urea Nitrogen 15 9-23 mg/dL Creatinine 1.24 0.700-1.30 mg/dL Glomerular Filtration Rate Calc 62 >90 mL/min BUN/Creatinine Ratio 12.1 10.0-20.0 Serum Glucose 327 H 74-106 mg/dL Calcium Level 10.7 H 8.7-10.4 mg/dL POC Glucose 313 H 70-106 mg/dl Test 06/29/25 00:12 06/28/25 17:14 06/28/25 17:12 06/28/25 13:30 Range/Units Troponin I High Sensitivity 955 *H </=54 ng/L Thyroid Stimulating Hormone (TSH) 1.43 0.55-4.78 uIU/mL Urine Color Colorless Yellow Urine Clarity Clear Clear Urine pH 5.0 5.0-9.0 Urine Specific [place] 1.005 1.001-1.035 Urine Protein Negative Negative Urine Ketones Negative Negative Urine Blood Negative Negative /uL Urine Nitrite Negative Negative Urine Bilirubin Negative Negative Urine Urobilinogen Normal Negative mg/dL Urine Leukocyte Esterase Negative Negative /uL Urine RBC 1 0 - 3 /hpf Urine Microscopic WBC < 1 0-3 /HPF Urine Squamous Epithelial Cells None seen <5 /hpf Urine Bacteria None seen None Seen /hpf Urine Glucose 2+ H Normal mg/dL Eosinophils (%) (Auto) 0.3 0.0-7.0 % Eosinophils # (Auto) 0 0-0.8 10 ^3/uL Basophils # (Auto) 0 0-0.2 10 ^3/uL Nucleated Red Blood Cells 0.0 % Magnesium Level 1.7 1.6-2.6 mg/dL B-Type Natriuretic Peptide 302.02 0-100 pg/mL Assessment Cardiac arrest secondary to ventricular arrhythmia (ventricular tachycardia and torsades de Pointe)- status post Ross Acute respiratory failure NSTEMI type 1 - status post PCI with one STANLEY to circumflex Newly diagnosed coronary artery disease - triple-vessel disease Prolonged QT Paroxysmal atrial fibrillation with RVR (chads Vasc 7) - secondary hypercoagulability state Metabolic acidosis with elevated anion gap secondary to hyperlacticacidemia KEANU hemodynamically mediated (VMN) 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 Vent riculogram shows LVEF of 20%. Revascularized culprit vessel. Planning on completing staged PCI (can be completed in the [place] or in [place] Ordered echocardiogram Currently on IV vasopressors and mechanical assisted ventilation Avoid QT prolonging medication Replenish electrolytes. Goal magnesium above two and goal potassium above four. On insulin sliding scale Goals of care discussed with (Myrna) for over 18 minutes: Full code status Discussed plan with Dr. Pierre, and nurses: Patient currently ICU status due to mechanical assisted ventilation and IV vasopressors requirement. Completed coronary angiography which showed triple-vessel disease with acute circumflex occlusion status post PCI with one STANLEY placed. Revascularized culprit vessel, planning on staged PCI once patient is more stable. Can be completed in the [place] or [place]. Optimize electrolytes, avoid QT prolonging medication. Patient has poor prognosis. Critical care time spent including discussion with nursing and family: 78 minutes Plan discussed with: Spouse, Other (Nurses) NYHA Physical activity limitations: NA Date of Service: Jun 29, 2025 Billing Provider: PHILLIP PIERRE Sr., MD Cardiology Common Codes: 87879-[id number] INP/OBS CARE (High) Cardiology Secondary Visit Cod: [id number] CARE PLAN 30 MINUTES JOSELYN STEIN RESIDENT Jun 29, 2025 10:14
[2025-06-29] MEDS ORDERED: DEXTROSE (50%) 50ML SYRG IV PRN ×3 (12:15→17:30)
[2025-06-29 12:22] LABS: Albumin 3.7 g/dL (3.2-4.8); Alkaline Phosphatase 77 U/L (46-116); Anion Gap 12 (5-15); BUN/Creatinine Ratio 12.0 (10.0-20.0); Bilirubin, Total 0.9 mg/dL (0.2-1.0); Blood Urea Nitrogen 20 mg/dL (9-23); Calcium 9.3 mg/dL (8.7-10.4); Carbon Dioxide 24 mmol/L (20-31); Chloride 100 mmol/L (98-107); Potassium 4.3 mmol/L (3.5-5.1); Total Protein 6.9 g/dL (5.7-8.2)
[2025-06-29 12:33] LABS: Lactic Acid w/Reflex 3.0 mmol/L (0.4-2.0)
[2025-06-29] MEDS: MAGNESIUM SULFATE 1GM/100ML 100 ML IV SCH (12:36)
[2025-06-29] MEDS ORDERED: AMIODARONE HCL (50 MG/ ML) 3 ML VIAL IV ONE (12:37)
[2025-06-29] MEDS ORDERED: SODIUM BICARB 8.4% 50Meq/50ml SYR INJ IV ONE (12:37)
[2025-06-29] MEDS ORDERED: EPINEPHrine HCL 1 MG/10 ML SYRG IV ONE (12:37)
[2025-06-29] MEDS ORDERED: CALCIUM CHLOR(10%) 100MG/ML 10ML SYRINGE IV ONE (12:37)
[2025-06-29 13:30] LABS: Sodium 136 mmol/L (136-145)
[2025-06-29 13:31] LABS: Alanine Aminotransferase 161 U/L (7-40); Magnesium 2.6 mg/dL (1.6-2.6)
[2025-06-29 13:32] LABS: Glucose 405 mg/dL (74-106)
[2025-06-29] MEDS: POTASSIUM CHL 20MEQ/100ML 100 ML IV SCH (13:35)
[2025-06-29 13:50] LABS: Cholesterol 107 mg/dL (< 200); HDL Cholesterol 43 mg/dL (40-59); Triglycerides 84 mg/dL (< 150)
[2025-06-29 13:51] LABS: INR 1.13 (0.9-1.15); Partial Thromboplastin Time 58.8 SEC (24.5-34.5); Prothrombin Time 11.8 sec (9.3-11.8)
[2025-06-29] MEDS: IODIXANOL 320MG/ML 100ML BTL IV ONE ×3 (14:35→16:07)
[2025-06-29] MEDS: HEPARIN IN NS 1000Units/500mL 1,500 ML ONE (14:35)
[2025-06-29] MEDS: SODIUM CHL 0.9% 50 ML ONE (14:49)
[2025-06-29] MEDS: VERAPAMIL 2.5MG/ML INJ 2ML VIAL IV ONE (14:49)
[2025-06-29] MEDS: ANGIOMAX 250 MG VIAL IV ONE (14:49)
[2025-06-29] MEDS: LIDOCAINE 2%HCL (LOCAL ANESTH.) INJ 20ML MDV ONE (14:50)
--- NOTE | 2025-06-29 14:52 | CONS ---
Pharmacy Clinical Information: HEPARIN DRIP, ACS PROTOCOL @1319 APTT 58.8 - NO BOLUS, NO CHANGE 3 CONSECUTIVE APTT THERAPEUTIC => APTT EVERY 24 HRS NEXT APTT DRAW SCHEDULED @0500 PER RX PROTOCOL CONFIRMED AND READ BACK WITH WEI SLAUGHTER [facility] RESIDENT Jun 29, 2025 14:52
--- NOTE | 2025-06-29 15:29 | DVHPN2 ---
Progress Note Date Seen: Jun 29, 2025 Medical Necessity Reason Pt with a Central, PICC or Fol: Yes The following are medically ne: Central Line, Lau Catheter Reason for lau catheter: Strict I&O Subjective Patient reports: No new complaints Review of Systems: HEENT:Normal, CVS:Normal, RESPIRATORY:Normal, GI:Normal, :Normal, MSK:Normal, NEURO:Normal Objective vital signs Vital Sign Date Time Temp Pulse Resp B/P (MAP) Pulse Ox O2 Delivery O2 Flow Rate FiO2 06/29/25 14:22 97.3 83 18 129/60 100 30 97.3 06/29/25 08:00 Mechanical Ventilator+ 06/29/25 04:00 0 Total Intake and Output 06/28/25 06/28/25 06/29/25 15:00 23:00 07:00 Intake Total 40 ml 292.075 ml Balance 40 ml 292.075 ml medications Current Medications Medications Dose Ordered Sig/Jesse Route Start Time Stop Time Status Last Admin Dose Admin Heparin Sodium/ Dextrose 250 ml @ 10 mls/hr Q24H IV 06/28/25 17:00 06/28/25 18:36 10 MLS/HR Nitroglycerin 0.4 mg Q5MINP PRN SL 06/28/25 19:15 Morphine Sulfate 2 mg Q30M PRN IV 06/28/25 19:15 Atorvastatin Calcium 40 mg HS PO 06/29/25 22:00 Norepinephrine Bitartrate 250 ml @ 3.75 mls/hr Q24H IV 06/29/25 06:15 Midazolam HCl 50 ml @ 1 mls/hr Q24H IV 06/29/25 06:15 06/29/25 10:28 6 MLS/HR Fentanyl Citrate 250 ml @ 2.5 mls/hr Q24H IV 06/29/25 06:15 06/29/25 06:38 10 MLS/HR Phenylephrine HCl 250 ml @ 30 mls/hr Q8H20M IV 06/29/25 07:00 06/29/25 12:30 116.25 MLS/HR Vasopressin 20 units/Sodium Chloride 100 ml @ 9 mls/hr Q11H7M IV 06/29/25 07:30 Aspirin 81 mg DAILY PO 06/30/25 10:00 Diagnostic Test (Pha) 1 strip ACHS 06/29/25 17:00 Insulin Human Regular HS SC 06/29/25 22:00 Insulin Human Regular AC SC 06/29/25 17:00 Dextrose 50 ml UD PRN IV 06/29/25 12:15 Phenylephrine HCl 80 mg/Sodium Chloride 250 ml @ 7.5 mls/hr Q24H IV 06/29/25 13:30 UNV Examination: GENERAL:Normal, HEENT:Normal, NECK:Normal, LUNGS:Normal, LUNGS:Abnormal (intubated), CVS:Normal, ABDOMEN:Normal, MSK:Normal, SKIN:Normal, NEURO:Normal, :Normal laboratory and microbiology Laboratory Tests 06/29/25 11:32 06/29/25 06:11 Test 06/29/25 11:32 Range/Units Serum Glucose 405 *H 74-106 mg/dL Problem List/Assessment/Plan Problem List/Assessment/Plan #1 acute resp failure: cont acv #2 s/p v fib / arrest: c angio today, heparin #3 s/p cpr #4 a fib with rvr #5 h/o cva with right hemiplegia/ aphasia #6 dm: ssi #7 obesity' #8 nstemi: c angio today #9 acute renal failure ?vasomotor nephropathy long dw at bedside- explained plan of care Plan discussed with: Spouse Critical Care Time (mins): 81 (critical care time excluding procedures was 81 mins) Date of Service: Jun 29, 2025 Billing Provider: YOBANY AGUIRRE MD Common Visit Codes: 98164-ICADCTIB CARE 30-74 MIN, 04830-[id number] CARE-EACH +30MIN YOBANY AGUIRRE MD Jun 29, 2025 15:28
[2025-06-29] MEDS: PANTOPRAZOLE 40 MG/10 ML VIAL INJ IV ONE (15:30)
[2025-06-29] MEDS: ATROPINE SULF 1 MG/10ml SYR ONE (15:46)
[2025-06-29] MEDS: CLOPIDOGREL BISULFATE 75 MG TAB ONE (16:13)
[2025-06-29] MEDS ORDERED: InsuLIN REG 1unit/0.01ml Soln (100units/ml) SC SCH ×3 (17:00→22:00)
[2025-06-29] MEDS ORDERED: ACCU-CHEK COMFORT CURVE STRIP VI SCH ×2 (17:00→18:00)
--- NOTE | 2025-06-29 17:38 | ECG ---
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
--- NOTE | 2025-06-29 17:53 | DVHOP2 ---
Operative Report - 2 Report Details Date: 06/29/25 Preop Diagnosis: Severe CAD. Status post ventricular tachycardia. Postop Diagnosis: Three-vessel coronary artery disease. Severe ischemic cardiomyopathy. Subacute thrombosis of circumflex coronary artery. Surgeon: Phillip Mtz MD Anesthesiologist: Conscious sedation Anesthesia: Mac, Local Consent: The patient was informed of the risks and benefits of the procedure. These include but are not limited to complications of anesthesia, postoperative infection, incomplete relief of symptoms, recurrence of symptoms, damage to b lood vessels, nerves and tendons, deep venous thrombosis, pulmonary embolism and possible need for repeat surgery in the future. Complications: No complications Findings: Severe three-vessel coronary artery disease. Cardiomyopathy. Indications for Surgery: Recent myocardial infarction. Recurrent ventricular tachycardia Name of Procedure Performed Bilateral cine coronary angiography. Left ventriculography. PTCA and stenting of the circumflex coronary artery.:. Procedure Details Procedure Details: Prior local anesthesia with 2% lidocaine to the right wrist and full informed consent obtained the patient was prepped and draped in usual fashion followed by placement of a six [place]ian slender sheath into the radial artery followed by a Ankit catheter to performed ventriculography cannulation of both right and left coronary ostia without complications Hemodynamics: Aortic blood pressure was 100/50. End-diastolic pressure was 18. There was no gradient across the aortic valve on pullback. Coronary anatomy: The RCA is a large dominant vessel. It has moderate plaquing in his proximal and mid section. The distal segment prior to the origin of the PDA and throughout the trans course to the posterolateral branches has severe disease with tandem lesions of 75-90% stenosis. Diminished flow to the PDA and posterolateral branches noted. Collateralization noted to the circumflex coronary artery. Left main is large and normal. Left anterior descending coronary artery was a large vessel with a proximal 90% stenosis. There was a mid 95% stenosis. Moderate plaquing throughout with the diagonals are free of significant disease. The circumflex is occluded at its proximal portion. Ventriculography in the CARRANZA projection shows an EF of approximately 15% Angioplasty was performed for which a 4.0 EBU guide was then placed into the left main and a Specter wire was used to cross the area of stenosis within the proximal circumflex. We placed the wire distally crossing several lesions into the distal circumflex. We took a 2-0 balloon and pre-dilated to the proximal and midportion. We noted that we were in the circumflex proper which is a smaller vessel and we diverted the wire into the obtuse marginal branch which was a large vessel also with multiple lesions present. We dilated the distal lesion which is a 80% stenosis and the lesion just distal to the bifurcation of the circumflex which had another 80% hazy lesion. The mid circumflex was also dilated which was a calcified and hazy lesion. The proximal circumflex was also dilated which had a 95+% stenosis prior to the origin of the complete occlusion. We then placed a two 5 x 12 mm stent into the distal obtuse marginal branch. We placed a two 5 x 12 just distal to the origin of the marginal at the takeoff of the circumflex bifurcation. We then placed a 18 by 3-0 stent into the mid circumflex and a 3-0 by 12 mm stent into the ostium excellent antegrade flow without thrombus formation and/or dissection. Impression successful PTCA and stenting and aperture of the occluded circumflex coronary artery. Decreased left ventricular ejection fraction. Elevated left ventricular end-diastolic pressures. Significant CAD of the RCA and LAD. Recommendations: a staged procedure of the RCA and LAD at a later date. Continue dual antiplatelet therapy. Risk factor modifications and guideline directed medical therapy for his cardiomyopathy. Condition Guarded Disposition Still a Patient Date of Service: Jun 29, 2025 Billing Provider: PHILLIP MTZ Sr., MD Cardiology Common Codes: 02946-[id number] INP/OBS CARE (High) Cardiology Procedure Codes: 99803-YTDMJY VESSEL W/I VASC FAM, 31756 -PTCA W/STENT PLACEMENT, 51160-HVTT ADD CORONARY BRANCH, 80358-OKBK HEART CATH W/INTRA INJ PHILLIP MTZ Sr., MD Jun 29, 2025 17:53
[2025-06-29] MEDS: MIDAZOLAM DRIP 100 mg/100mL NS 100 ML IV SCH (17:57)
[2025-06-29] MEDS: PHENYLEPHRINE INJ 80 MG in SODIUM CHL 0.9% 242 ML IV SCH (18:55)
[2025-06-29] MEDS: ACCU-CHEK COMFORT CURVE STRIP VI SCH (20:33)
[2025-06-29] MEDS: InsuLIN REG 1unit/0.01ml Soln (100units/ml) SC SCH (20:34)
[2025-06-29] MEDS: ATORVASTATIN 20 MG TAB PO SCH (22:05)
[2025-06-30] VITALS (108 sets, daily range): BP systolic 84–137; BP diastolic 36–107; PULSE 66–133; RESP 16–26; TEMP 98.4–99.5; O2SAT 94–100
[2025-06-30 04:13] LABS: Hematocrit 38.5 % (41.0-53.0); Hemoglobin 12.9 g/dL (13.5-17.5); Mean Corpuscular Hemoglobin 27.5 pg (28.0-32.0); Mean Corpuscular Volume 82.0 fL (80.0-100.0); Nucleated Red Blood Cells % 0.0 %
[2025-06-30 04:46] LABS: Alkaline Phosphatase 72 U/L (46-116); Anion Gap 11 (5-15); BUN/Creatinine Ratio 15.9 (10.0-20.0); Blood Urea Nitrogen 22 mg/dL (9-23); Calcium 9.1 mg/dL (8.7-10.4); Carbon Dioxide 24 mmol/L (20-31); Chloride 104 mmol/L (98-107); Potassium 3.8 mmol/L (3.5-5.1); Sodium 139 mmol/L (136-145); Total Protein 6.7 g/dL (5.7-8.2)
[2025-06-30 04:47] LABS: Albumin 3.6 g/dL (3.2-4.8); Bilirubin, Total 1.0 mg/dL (0.2-1.0)
[2025-06-30 04:54] LABS: Alanine Aminotransferase 121 U/L (7-40); Glucose 144 mg/dL (74-106)
[2025-06-30 06:46] LABS: Base Excess -2.1 mmol/L (-2.0-3.0)
--- NOTE | 2025-06-30 08:45 | DVH ---
INDICATION: resp failure TECHNIQUE: Single frontal view of the chest was obtained COMPARISON: XY CHEST XRAY 1 VIEW on DOS: 06/29/25, XY CHEST XRAY 1 VIEW on DOS: 06/29/25, XY CHEST PO RTABLE on DOS: 06/28/25, XY CHEST XRAY 1 VIEW on DOS: 06/29/25 FINDINGS: Lines and Tubes: Endotracheal tube, enteric catheter and right central venous catheter in satisfactor y position. Lungs: Unchanged pulmonary vascular congestion. Pleura: No effusion. No pneumothorax. Cardiomediastinal contours: Unremarkable Bones: Unremarkable IMPRESSION: Right central venous catheter in satisfactory position. No appreciable pneumothorax.
--- NOTE | 2025-06-30 10:13 | DVHPNRES ---
Progress Note Date Seen: Jun 30, 2025 Resident Creating Document: JOSELYN STEIN RESIDENT Medical Necessity Reason Pt with a Central, PICC or Fol: Yes The following are medically ne: Central Line, Lau Catheter Reason for lau catheter: Strict I&O Subjective Review of Systems Hardy Almanza is a 74-year-old male patient who presents to ED with chief complaint of palpitation three days before his admission. Upon his arrival to the emergency department he was diagnosed with atrial fibrillation with rapid ventricular response and placed on a diltiazem drip to control his heart rate. Patient progressed with cardiac arrest secondary to ventricular arrhythmias (ventricular tachycardia and torsades de Pointe) requiring CPR and ACLS maneuvers (three epinephrine, 300 mg of amiodarone and defibrillation x2) for 8 minutes with endotracheal intubation, obtaining ROSC. Patient initially was placed on amiodarone drip, but then was discontinued and indicated magnesium due to prolonged QT. Due to clinical status obtained history of present illness and past medical history from EMR and who is at bedside. Could not obtain review of systems. Cardiology consulted for elevated troponins. 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 Ex tobacco abuse (eight pack-year history of smoking) quit 30 years ago. Denies current tobacco, alcohol and other drug abuse Allergies: Denies Home medication: Pradaxa 150 mg p.o. daily, atorvastatin 40 mg p.o. daily, hydrochlorothiazide 12.5 mg p.o. daily, lisinopril 20 mg p.o. daily, glipizide, metformin a 1000 mg p.o. b.i.d., metoprolol (he quit taking for four months since it made him tired). Patient seen and examined at bedside. Currently under sedation due to mechanical assisted ventilation, on IV vasopressors (phenylephrine and norepinephrine) and therapeutic enoxaparin. Could not obtain review of systems. Objective vital signs Vital Sign Date Time Temp Pulse Resp B/P (MAP) Pulse Ox O2 Delivery O2 Flow Rate FiO2 06/30/25 09:20 86 18 113/62 (79) 100 30 06/30/25 07:00 99.3 210.7 06/30/25 06:00 Mechanical Ventilator+ 06/29/25 04:00 0 Total Intake and Output 06/29/25 06/29/25 06/30/25 15:00 23:00 07:00 Intake Total 1893.00 ml 620.439 ml 318.128 ml Output Total 350 ml Balance 1893.00 ml 620.439 ml -31.872 ml medications Current Medications Medications Dose Ordered Sig/Jesse Route Start Time Stop Time Status Last Admin Dose Admin Atorvastatin Calcium 40 mg HS PO 06/29/25 22:00 06/29/25 22:05 40 MG Norepinephrine Bitartrate 250 ml @ 3.75 mls/hr Q24H IV 06/29/25 06:15 Fentanyl Citrate 250 ml @ 2.5 mls/hr Q24H IV 06/29/25 06:15 06/30/25 02:09 10 MLS/HR Aspirin 81 mg DAILY PO 06/30/25 10:00 Insulin Human Regular HS SC 06/29/25 22:00 Cancel Insulin Human Regular AC SC 06/29/25 17:00 Cancel Phenylephrine HCl 80 mg/Sodium Chloride 250 ml @ 7.5 mls/hr Q24H IV 06/29/25 13:30 06/30/25 05:19 15 MLS/HR Pantoprazole Sodium 40 mg DAILY IV 06/30/25 10:00 Clopidogrel Bisulfate 75 mg DAILY PO 06/30/25 10:00 Diagnostic Test (Pha) 1 strip IQ4HR 06/29/25 20:00 06/30/25 09:56 1 STRIP Insulin Human Regular IQ4HR SC 06/29/25 20:00 06/30/25 05:17 2 UNITS Dextrose 50 ml UD PRN IV 06/29/25 17:30 Midazolam HCl 100 ml @ 1 mls/hr Q24H IV 06/29/25 18:00 06/29/25 17:57 6 MLS/HR Potassium Chloride 100 ml @ 50 mls/hr Q2H IV 06/30/25 09:45 06/30/25 13:44 UNV Enoxaparin Sodium 100 mg Q12HR SC 06/30/25 10:00 UNV Examination Patient lying in bed, under sedoanalgesia due to mechanical ventilation General: RASS -3, afebrile, mucosae are moist Cardiovascular: Normal S1 and S2. Holosystolic murmur best heard in apex which radiates towards axilla intensity 4/6. No gallops or rubs Respiratory: Mechanically assisted ventilation, equal bilateral airway entree. Clear lung sounds on auscultation Abdomen: Soft, nontender, no organomegaly, normal bowel sounds MSK/skin: Mobilization of limbs cannot be evaluated. Skin is dry and warm. Presents bilateral erythematous and ulcerated lesions. Neurological: Orientation cannot be assessed. No apparent motor no sensitive deficits. Pupils are isocoric and reactive laboratory and microbiology Laboratory Tests 06/30/25 03:30 Test 06/30/25 03:30 Range/Units Serum Glucose 144 #H 74-106 mg/dL Problem List/Assessment/Plan Problem List/Assessment/Plan Assessment Cardiac arrest secondary to ventricular arrhythmia (ventricular tachycardia and torsades de Pointe)- status post Ross Acute respiratory failure NSTEMI type 1 - status post PCI with 4 STANLEY to circumflex Newly diagnosed coronary artery disease - triple-vessel disease Prolonged QT Paroxysmal atrial fibrillation with RVR (chads Vasc 7) - secondary hypercoagulability state Metabolic acidosis with elevated anion gap secondary to hyperlacticacidemia KEANU hemodynamically mediated (VMN) 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 Ventriculogram shows LVEF of 15%. Revascularized culprit vessel. Planning on completing staged PCI (can be completed in the center or in [place]). Initially was on heparin drip, now on therapeutic enoxaparin for A-fib. Ordered echocardiogram Currently on IV vasopressors and mechanical assisted ventilation Avoid QT prolonging medication Replenish electrolytes. Goal magnesium above two and goal potassium above four. On insulin sliding scale Goals of care discussed with (Myrna) for over 18 minutes: Full code status Discussed plan with Dr. Pierre, and nurses: Patient currently ICU status due to mechanical assisted ventilation and IV vasopressors requirement. Completed coronary angiography which showed triple-vessel disease with acute circumflex occlusion status post PCI with 4 STANLEY placed. Revascularized culprit vessel, planning on staged PCI once patient is more stable. Can be completed in the [place] or [place]. Optimize electrolytes, avoid QT prolonging medication. Patient has poor prognosis. Critical care time spent including discussion with nursing and family: 78 minutes Plan discussed with: Spouse, Other (Nurses) My Orders My Orders Orders - JOSELYN STEIN Procedure Category Date Status Time Aspirin Tablet PHA 06/30/25 In Process 10:00 Npo Except For GRADY 06/30/25 In Process Medications 00:01 Obtain Consent For: ORDERS 06/29/25 Transmitted 11:21 Hold Enoxaparin Day GRADY 06/30/25 In Process Of Procedu 00:01 D/C Tlc GRADY 06/29/25 In Process 11:21 Shave Both Groins [facility] 06/29/25 In Process 11:21 Provide Education [facility] 06/29/25 In Process Materials 11:21 Cl Left Heart Cath CL 06/29/25 Logged 11:21 Comprehensive LAB 07/01/25 Verified Metabolic Panel 04:00 Npo (Nothing By DIET 06/29/25 Transmitted Mouth) Diet Lunch Obtain Consent For [facility] 06/29/25 In Process Anesthesia 11:21 Sodium Chl 0.9% PHA 06/29/25 In Process (Ns... 13:30 Glucose Blood PHA 06/29/25 In Process (Accu-Chek Comfort 20:00 Insulin R (Human) PHA 06/29/25 In Process (Insulin R) 20:00 Dextrose 50% Syringe PHA 06/29/25 In Process 17:30 Potassium Chl PHA 06/30/25 Logged 20meq/100ml 09:45 Enoxaparin Sodium PHA 06/30/25 Logged (Lovenox) 10:00 Visit Coding Cardiology RES Date of Service: Jun 30, 2025 Billing Provider: PHILLIP PIERRE Sr., MD Cardiology Common Codes: [id number] HOSP CARE(High Cardiology Secondary Visit Cod: [id number] CARE PLAN 30 MINUTES JOSELYN STEIN RESIDENT Jun 30, 2025 10:13
[2025-06-30] MEDS: PANTOPRAZOLE 40 MG/10 ML VIAL INJ IV SCH (11:17)
[2025-06-30] MEDS: ENOXAPARIN SOD 100 MG/1 ML SYRINGE SC SCH (11:43)
[2025-06-30] MEDS: POTASSIUM CHL 20MEQ/100ML 100 ML IV SCH (11:44)
[2025-06-30] MEDS: CLOPIDOGREL BISULFATE 75 MG TAB PO SCH (11:44)
--- NOTE | 2025-06-30 12:01 | DVHPNRES ---
Progress Note Date Seen: Jun 30, 2025 Resident Creating Document: CYNTHIA LOVE RESIDENT Medical Necessity Reason Pt with a Central, PICC or Fol: Yes The following are medically ne: Central Line, Lau Catheter Reason for lau catheter: Strict I&O Subjective Review of Systems Patient is a 74-year-old male with past medical history of hypertension, diabetes type 2, dyslipidemia, paroxysmal atrial fibrillation, CVA in 2019, presented to the ED with chief complaints of 3 days of palpitations, shortness of breath before his admission. On arrival to the ED patient was found to have atrial fibrillation with RVR and was started on a diltiazem drip to control his heart rate. Patient progressed to have cardiac arrest secondary to ventricular arrhythmias possibly ventricular tachycardia or torsades de Pointe. Patient required CPR and ACLS maneuvers for 8 minutes followed by endotracheal intubation, obtained by ROSC. Patient was initially on amiodarone drip which was later discontinued after magnesium was given for QT prolongation. Due to clinical status obtained history of present illness and past medical history from EMR and who is at bedside. Could not obtain review of systems. Cardiology consulted for elevated troponins. Past medical history: Hypertension, dyslipidemia, diabetes, paroxysmal atrial fibrillation diagnosed in 2017 (chads Vasc 7), 2019 CVA Past surgical history: Appendectomy Family history: Two brothers had heart disease requiring CABG at the age of 40 and 50 respectively, brother had lung cancer, mother had breast cancer Social history: with . Ex tobacco abuse (eight pack-year history of smoking) quit 30 years ago. Denies current tobacco, alcohol and other drug abuse Allergies: Denies Home medication: Pradaxa 150 mg p.o. daily, atorvastatin 40 mg p.o. daily, hydrochlorothiazide 12.5 mg p.o. daily, lisinopril 20 mg p.o. daily, glipizide, metformin a 1000 mg p.o. b.i.d., metoprolol (he quit taking for four months since it made him tired). Patient seen and examined at bedside. Patient is currently sedated and on mechanically ventilation, with ventilator settings at tidal volume 500, FiO2 30%, peep at 5, off of pressors phenylephrine and norepinephrine. Objective vital signs Vital Sign Date Time Temp Pulse Resp B/P (MAP) Pulse Ox O2 Delivery O2 Flow Rate FiO2 06/30/25 11:37 81 18 107/60 (76) 100 30 06/30/25 11:16 98.8 209.8 06/30/25 10:00 Mechanical Ventilator+ 06/29/25 04:00 0 Total Intake and Output 06/29/25 06/29/25 06/30/25 15:00 23:00 07:00 Intake Total 1893.00 ml 620.439 ml 318.128 ml Output Total 350 ml Balance 1893.00 ml 620.439 ml -31.872 ml medications Current Medications Medications Dose Ordered Sig/Jesse Route Start Time Stop Time Status Last Admin Dose Admin Atorvastatin Calcium 40 mg HS PO 06/29/25 22:00 06/29/25 22:05 40 MG Norepinephrine Bitartrate 250 ml @ 3.75 mls/hr Q24H IV 06/29/25 06:15 Fentanyl Citrate 250 ml @ 2.5 mls/hr Q24H IV 06/29/25 06:15 06/30/25 02:09 10 MLS/HR Aspirin 81 mg DAILY PO 06/30/25 10:00 06/30/25 11:44 81 MG Insulin Human Regular HS SC 06/29/25 22:00 Cancel Insulin Human Regular AC SC 06/29/25 17:00 Cancel Phenylephrine HCl 80 mg/Sodium Chloride 250 ml @ 7.5 mls/hr Q24H IV 06/29/25 13:30 06/30/25 05:19 15 MLS/HR Pantoprazole Sodium 40 mg DAILY IV 06/30/25 10:00 06/30/25 11:17 40 MG Clopidogrel Bisulfate 75 mg DAILY PO 06/30/25 10:00 06/30/25 11:44 75 MG Diagnostic Test (Pha) 1 strip IQ4HR 06/29/25 20:00 06/30/25 09:56 1 STRIP Insulin Human Regular IQ4HR SC 06/29/25 20:00 06/30/25 05:17 2 UNITS Dextrose 50 ml UD PRN IV 06/29/25 17:30 Midazolam HCl 100 ml @ 1 mls/hr Q24H IV 06/29/25 18:00 06/30/25 10:44 5 MLS/HR Potassium Chloride 100 ml @ 50 mls/hr Q2H IV 06/30/25 09:45 06/30/25 13:44 06/30/25 11:44 50 MLS/HR Enoxaparin Sodium 100 mg Q12HR SC 06/30/25 10:00 06/30/25 11:43 100 MG Examination Patient lying in bed, is mechanically intubated and sedated HEENT: Normocephalic, atraumatic, moist mucous membranes Respiratory/pulmonary: Clear lungs bilaterally, vesicular murmurs present in almost all lung roberts, no associated crackles or wheezes. Cardiovascular: Normal heart sounds S1 and S2 with no associated murmurs Abdomen: Abdomen nondistended, there is no pain to palpation in any of the abdominal quadrants, no palpable masses. Extremities: There is no peripheral edema present at the lower extremities. Bilateral erythematous and ulcerated lesions. Skin: No rashes or pruritus, there is no sacral edema present at this time. Neurological: Pupils are isocoric and reactive, gag and cough reflex intact laboratory and microbiology Laboratory Tests 06/30/25 03:30 Test 06/30/25 03:30 Range/Units Serum Glucose 144 #H 74-106 mg/dL Microbiology Date/Time Source Procedure Growth Status 06/29/25 06:40 Sputum Gram Stain - Final Resulted 06/29/25 06:40 Sputum Respiratory Culture - Preliminary Resulted Problem List/Assessment/Plan Problem List/Assessment/Plan Neurology Acute metabolic encephalopathy History of CVA-with residual aphasia, right-sided deficit -Sedation/neurological status: Rass score -3 - off of Levophed, phenylephrine Cardiology Cardiac arrest secondary to ventricular arrhythmia (ventricular tachycardia, torsade de pointes) NSTEMI type 1 status post PCI Newly diagnosed coronary artery disease - triple-vessel disease Prolonged QT Paroxysmal atrial fibrillation with RVR Hypertension Dyslipidemia - EKG showed atrial fibrillation with anterior T-wave inversions, prolonged QT - coronary angiography showed severe triple-vessel disease with acutely occluded circumflex status post PCI with 1 drug-eluting stent placed. -ventriculogram showed LVEF of 15% - ordered echocardiography, pending -avoid QT prolongation medications - Dany Vasc score 7 -currently on vasopressors Levophed, phenylephrine -severe CAD in LAD and RCA, plan to do angiography on Thursday -patient given aspirin, atorvastatin, clopidogrel Respiratory acute hypoxic respiratory failure likely due to cardiac arrest -ventilator settings: VT 500, respiratory rate 17, FiO2 30 %, PEEP 5 - chest x-ray: Normal Genitourinary/kidney Acute kidney injury likely due to be VMN -medication: Given Lasix 20 mg once -strict I&Os -nephrotoxic drugs Endocrine Uncontrolled diabetes mellitus, HbA1c 10.6 - on insulin sliding scale Transaminitis - monitor labs Obesity BMI 33.0 Lines / Tubes / Devices Airway: Intubated via ETT on 06/29 Vascular Access: Central line 06/29 Drips: Fentanyl, midazolam, norepinephrine, phenylephrine, Versed Prophylaxis / Supportive Care DVT Prophylaxis: Lovenox. GI Prophylaxis: Protonix. Goals of care discussed with the patient family for more than 29 minutes: Full code state Patient care updated to (Myrna), addressed all concerns. Critical care time spent excluding procedures 83 minutes Plan discussed with Dr. Mason and RN Impression: Acute hypoxic respiratory failure On mechanical ventilator Acute metabolic encephalopathy NSTEMI type 1, status post PCI Paroxysmal atrial fibrillation with RVR Acute kidney injury History of CVA Plan: s/p intubation on mechanical ventilator. On AC mode; RR 18, VT 500, PEEP 5, FiO2 30% Titrate FIO2 to keep O2 saturation above 90%. VAP bundle. Daily ABG and CXR while intubated Sedate for ventilator synchrony - on Fentanyl, Versed. Patient is s/p cardiac arrest yesterday. Patient presented cardiac arrest with requirement of ACLS maneuver for 8 minutes with endotracheal intubation EKG showed atrial fibrillation with anterior T-wave inversions, prolonged QT (longest was 580 milliseconds) Completed coronary angiography which showed severe triple-vessel disease with acutely occluded circumflex currently status post PCI with one STANLEY placed. Ventriculogram shows LVEF of 15%. Revascularized culprit vessel. Planning on completing staged PCI (can be completed in the center or in [place]). Initially was on heparin drip, now on therapeutic enoxaparin for A-fib. Cardiology recs appreciated. Continue antibiotics. Lactic acid normal. Pressors for hemodynamic support Titrate to keep mean arterial pressure greater than 65 mmHg. Accu-Cheks, ISS. Dietary recommendations appreciated. Monitor renal function Monitor electrolytes. Supplement as necessary. Monitor ins and outs. Potassium supplementation Maintain euvolemia. GI prophylaxis. DVT prophylaxis. Discussed with NAM Fung, Dr. Love. Prognosis: Poor given patient's multiple co-morbidities. Condition: Critical Rest of plan per hospitalist and other consultants. A total of 35 minutes of critical care time was spent reviewing the patient record, examining the patient, making a diagnostic and therapeutic plan, discussing this plan with the medical personnel, following up on diagnostic studies and following the patient for clinical stability excluding any and all procedures. At least 50% of this time was spent in direct, [id number] contact. Thank you for allowing me to participate in this patient's care. Further recommendations will depend on the patient's clinical course. Please do not hesitate to contact me if you have any questions or concerns. This medical document was created using an electronic medical record system with [employer] dictation system. Although these documentations are being carefully reviewed, there may still be some phonetic and typographical changes. The errors are purely typographical, due to imperfection on the software program, and do not reflect any compromise in the patient's medical care. Plan discussed with: Spouse My Orders My Orders Orders - CYNTHIA LOVE RESIDENT Procedure Category Date Status Time Urine Bacterial JONNY 06/30/25 Uncollected Culture 11:14 Lactic Acid W/ Reflex LAB 06/30/25 Logged Order 11:14 Furosemide Injection PHA 06/30/25 Logged (Lasix Injection) 12:00 Dietary Evaluation Review Comments: 1. Protein needs based on 1.2-1.5g/protein/kg IBW d/t low GFR 2. While being intubated, offer TF Vital HP @45ml/hr, in 24 hr, Pt will receive 94g protein, 1080lkcal 903ml free water, meeting pts needs at 97% protein and 100% energy. 3. Consider TPN to meet pt's needs if Pt does not tolerate TF well. 4. Reassess when pt extubated, advance to CCHO-60 PO diet after passing a INPATIENT NURSING AIDE evluation. Expected Outcomes/Goals: off intubation, advance to CCHO-60 Cardiac diet, gradual wt loss CYNTHIA LOVE RESIDENT Jun 30, 2025 12:01 ENRIQUE MASON MD Jul 01, 2025 02:36
[2025-06-30] MEDS: FUROSEMIDE 20 MG/2 ML VIAL IV ONE (13:26)
[2025-06-30] MEDS: MAGNESIUM SULFATE 1GM/100ML 100 ML IV ONE (13:26)
[2025-06-30 17:26] LABS: Amphetamine Screen, Urine Neg (NEGATIVE); Barbiturate Scree,Urine Neg (NEGATIVE); Benzodiazephine Screen, Urine Pos (NEGATIVE); Cannabinoid Screen, Urine Neg (NEGATIVE); Cocaine Screen, Urine Neg (NEGATIVE); Opiate Scree,Urine Neg (NEGATIVE); Phencyclidine Screen, Urine Neg (NEGATIVE)
[2025-06-30 19:36] LABS: Potassium 4.7 mmol/L (3.5-5.1)
[2025-06-30 19:43] LABS: Magnesium 2.3 mg/dL (1.6-2.6)
[2025-07-01] VITALS (107 sets, daily range): BP systolic 77–147; BP diastolic 42–73; PULSE 74–162; RESP 12–35; TEMP 96.8–101.3; O2SAT 97–100
[2025-07-01 03:44] LABS: Hematocrit 38.7 % (41.0-53.0); Hemoglobin 12.8 g/dL (13.5-17.5); Mean Corpuscular Hemoglobin 27.4 pg (28.0-32.0); Mean Corpuscular Volume 83.1 fL (80.0-100.0); Nucleated Red Blood Cells % 0.0 %
[2025-07-01 04:06] LABS: Albumin 3.5 g/dL (3.2-4.8); Alkaline Phosphatase 72 U/L (46-116); Anion Gap 14 (5-15); BUN/Creatinine Ratio 22.0 (10.0-20.0); Bilirubin, Total 1.1 mg/dL (0.2-1.0); Calcium 8.7 mg/dL (8.7-10.4); Carbon Dioxide 21 mmol/L (20-31); Chloride 104 mmol/L (98-107); Magnesium 2.4 mg/dL (1.6-2.6); Potassium 4.4 mmol/L (3.5-5.1); Sodium 139 mmol/L (136-145); Total Protein 6.6 g/dL (5.7-8.2)
[2025-07-01 04:13] LABS: Alanine Aminotransferase 87 U/L (7-40); Blood Urea Nitrogen 33 mg/dL (9-23); Glucose 258 mg/dL (74-106)
--- NOTE | 2025-07-01 06:20 | DVH ---
CHEST RADIOGRAPH Indication: on vent Technique: Single frontal view of the chest was obtained COMPARISON: XY CHEST PORTABLE on DOS: 06/30/25, XY CHEST XRAY 1 VIEW on DOS: 06/29/25, XY CHEST XRAY 1 VIEW on DOS: 06/29/25, XY CHEST PORTABLE on DOS: 06/28/25 FINDINGS: Lines and Tubes: Unchanged. Lungs: Clear Pleura: No effusion. No pneumothorax. Cardiomediastinal contours: Cardiomegaly. Bones: Unremarkable IMPRESSION: 1. Cardiomegaly. 2. Lines and tubes unchanged.
[2025-07-01 06:59] LABS: Base Excess -4.1 mmol/L (-2.0-3.0)
[2025-07-01] MEDS: Vital High Protein 1liter Bottle GT SCH (07:29)
[2025-07-01] MEDS: FUROSEMIDE 20 MG/2 ML VIAL IV SCH (10:32)
[2025-07-01] MEDS: METOPROLOL TARTRATE 1MG/1ML-5ML VIAL IV ONE (11:05)
[2025-07-01] MEDS: DIGOXIN (250MCG/ML) 2 ML AMPULE IV ONE (14:20)
--- NOTE | 2025-07-01 15:18 | DVHPNRES ---
Progress Note Date Seen: Jul 01, 2025 Resident Creating Document: YANELI FELIX RESIDENT Medical Necessity Reason Pt with a Central, PICC or Fol: Yes The following are medically ne: Central Line, Lau Catheter Reason for lau catheter: Strict I&O Subjective Review of Systems Hardy Almnaza is a 74-year-old male patient who presents to ED with chief complaint of palpitation three days before his admission. Upon his arrival to the emergency department he was diagnosed with atrial fibrillation with rapid ventricular response and placed on a diltiazem drip to control his heart rate. Patient progressed with cardiac arrest secondary to ventricular arrhythmias (ventricular tachycardia and torsades de Pointe) requiring CPR and ACLS maneuvers (three epinephrine, 300 mg of amiodarone and defibrillation x2) for 8 minutes with endotracheal intubation, obtaining ROSC. Patient initially was placed on amiodarone drip, but then was discontinued and indicated magnesium due to prolonged QT. Due to clinical status obtained history of present illness and past medical history from EMR and who is at bedside. Could not obtain review of systems. Cardiology consulted for elevated troponins. 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 Ex tobacco abuse (eight pack-year history of smoking) quit 30 years ago. Denies current tobacco, alcohol and other drug abuse Allergies: Denies Home medication: Pradaxa 150 mg p.o. daily, atorvastatin 40 mg p.o. daily, hydrochlorothiazide 12.5 mg p.o. daily, lisinopril 20 mg p.o. daily, glipizide, metformin a 1000 mg p.o. b.i.d., metoprolol (he quit taking for four months since it made him tired). 07/01/25: Cardiology: sp/ Cardiac arrest secondary to ventricular arrhythmia (ventricular tachycardia and torsades de Pointe)- status post ROSC 06/29/25 and NSTEMI type 1 - status post PCI with 4 STANLEY to circumflex 06/29/25. Patient seen and examined at bedside. Currently under sedation due to mechanical assisted ventilation, recently weaned off pressors, and therapeutic enoxaparin. HR 150- 160s, order was given of metoprolol IV 5 mg with partial control of the RVR, also digoxin loading dose given. Metoprolol 25 mg PO daily was also placed for tomorrow. Due to QT prolongation and previous torsades, we are cautious to use amiodarone. No episodes of Vtach but if is needed lidocaine can be given, also we are cautious to not be too aggressive due to the recent wean off the pressors. We still continue f/u for next week procedure Objective vital signs Vital Sign Date Time Temp Pulse Resp B/P (MAP) Pulse Ox O2 Delivery O2 Flow Rate FiO2 07/01/25 14:20 137 07/01/25 14:20 18 100/55 (70) 97 30 07/01/25 13:00 100.2 212.4 07/01/25 12:00 Mechanical Ventilator+ Total Intake and Output 06/30/25 06/30/25 07/01/25 15:00 23:00 07:00 Intake Total 480.937 ml 232.0 ml 353.25 ml Output Total 400 ml 300 ml Balance 480.937 ml -168.0 ml 53.25 ml medications Current Medications Medications Dose Ordered Sig/Jesse Route Start Time Stop Time Status Last Admin Dose Admin Atorvastatin Calcium 40 mg HS PO 06/29/25 22:00 06/30/25 21:21 Norepinephrine Bitartrate 250 ml @ 3.75 mls/hr Q24H IV 06/29/25 06:15 07/01/25 02:02 Fentanyl Citrate 250 ml @ 2.5 mls/hr Q24H IV 06/29/25 06:15 07/01/25 14:07 Aspirin 81 mg DAILY PO 06/30/25 10:00 07/01/25 10:31 Insulin Human Regular HS SC 06/29/25 22:00 Cancel Insulin Human Regular AC SC 06/29/25 17:00 Cancel Pantoprazole Sodium 40 mg DAILY IV 06/30/25 10:00 07/01/25 10:31 Clopidogrel Bisulfate 75 mg DAILY PO 06/30/25 10:00 07/01/25 10:31 Diagnostic Test (Pha) 1 strip IQ4HR 06/29/25 20:00 07/01/25 11:41 Insulin Human Regular IQ4HR SC 06/29/25 20:00 07/01/25 11:42 Dextrose 50 ml UD PRN IV 06/29/25 17:30 Midazolam HCl 100 ml @ 1 mls/hr Q24H IV 06/29/25 18:00 07/01/25 02:36 Enoxaparin Sodium 100 mg Q12HR SC 06/30/25 10:00 07/01/25 10:33 Furosemide 20 mg DAILY IV 07/01/25 10:00 07/01/25 10:32 Enteral Nutritional Formula 1,000 ml 45ML/HR GT 06/30/25 17:15 07/01/25 07:29 Metoprolol Succinate 25 mg DAILY PO 07/02/25 10:00 Examination Patient lying in bed, under sedoanalgesia due to mechanical ventilation General: RASS -3, afebrile, mucosae are moist Cardiovascular: Normal S1 and S2. Holosystolic murmur best heard in apex which radiates towards axilla intensity 4/6. No gallops or rubs Respiratory: Mechanically assisted ventilation, equal bilateral airway entree. Clear lung sounds on auscultation Abdomen: Soft, nontender, no organomegaly, normal bowel sounds MSK/skin: Mobilization of limbs cannot be evaluated. Skin is dry and warm. Presents bilateral erythematous and ulcerated lesions. Neurological: Orientation cannot be assessed. No apparent motor no sensitive deficits. Pupils are isocoric and reactive laboratory and microbiology Laboratory Tests 07/01/25 03:25 Test 07/01/25 03:25 Range/Units Serum Glucose 258 #H 74-106 mg/dL Microbiology Date/Time Source Procedure Growth Status 06/29/25 06:40 Sputum Gram Stain - Final Resulted 06/29/25 06:40 Sputum Respiratory Culture - Preliminary Resulted 06/29/25 04:30 Nose MRSA Screen - Final Complete Problem List/Assessment/Plan Problem List/Assessment/Plan Cardiac arrest secondary to ventricular arrhythmia (ventricular tachycardia and torsades de Pointe)- status post Ross Acute respiratory failure NSTEMI type 1 - status post PCI with 4 STANLEY to circumflex Newly diagnosed coronary artery disease - triple-vessel disease Prolonged QT Paroxysmal atrial fibrillation with RVR (chads Vasc 7) - secondary hypercoagulability state Metabolic acidosis with elevated anion gap secondary to hyperlacticacidemia KEANU hemodynamically mediated (VMN) 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 Ventriculogram shows LVEF of 15%. Revascularized culprit vessel. Planning on completing staged PCI (can be completed in the [place] or in [place]). 07/01/25: HR 150- 160s, order was given of metoprolol IV 5 mg with partial control of the RVR, also digoxin loading dose given. Metoprolol 25 mg PO daily was also placed for tomorrow. Due to QT prolongation and previous torsades, we are cautious to use amiodarone. No episodes of Vtach but if is needed lidocaine can be given, also we are cautious to not be too aggressive due to the recent wean off the pressors. We still continue f/u for next week procedure Initially was on heparin drip, now on therapeutic enoxaparin for A-fib. Ordered echocardiogram: pending report Currently on mechanical assisted ventilation Avoid QT prolonging medication Replenish electrolytes. Goal magnesium above two and goal potassium above four. On insulin sliding scale Goals of care discussed with (Myrna) for over 15 minutes: Full code status Discussed plan with Dr. Pierre, and nurses: Patient currently ICU status due to mechanical assisted ventilation and IV vasopressors requirement. Completed coronary angiography which showed triple-vessel disease with acute circumflex occlusion status post PCI with 4 STANLEY placed. Revascularized culprit vessel, planning on staged PCI once patient is more stable. Can be completed in the [place] or [place]. Optimize electrolytes, avoid QT prolonging medication. Today HR control was needed with metoprolol and digoxin. Patient has poor prognosis. Critical care time spent including discussion with nursing and family: 78 minutes Plan discussed with: Spouse, Other (rn) My Orders My Orders Orders - YANELI FELIX RESIDENT Procedure Category Date Status Time Metoprolol Xl PHA 07/02/25 In Process Succinate (Toprol Xl) 10:00 Dietary Evaluation Review Comments: 1. Protein needs based on 1.2-1.5g/protein/kg IBW d/t low GFR 2. While being intubated, offer TF Vital HP @45ml/hr, in 24 hr, Pt will receive 94g protein, 1080lkcal 903ml free water, meeting pts needs at 97% protein and 100% energy. 3. Consider TPN to meet pt's needs if Pt does not tolerate TF well. 4. Reassess when pt extubated, advance to CCHO-60 PO diet after passing a POLICE [employer] OFFICER evluation. Expected Outcomes/Goals: off intubation, advance to CCHO-60 Cardiac diet, gradual wt loss Visit Coding Cardiology RES Date of Service: Jul 01, 2025 Billing Provider: PHILLIP PIERRE Sr., MD Cardiology Common Codes: 96039-[id number] CARE 30-74 MIN YANELI FELIX RESIDENT Jul 01, 2025 15:17
--- NOTE | 2025-07-01 17:05 | DVHPNRES ---
Progress Note Date Seen: Jul 01, 2025 Resident Creating Document: CYNTHIA LOVE RESIDENT Medical Necessity Reason Pt with a Central, PICC or Fol: Yes The following are medically ne: Central Line, Lau Catheter Reason for lau catheter: Strict I&O Subjective Review of Systems Patient is a 74-year-old male with past medical history of hypertension, diabetes type 2, dyslipidemia, paroxysmal atrial fibrillation, CVA in 2019, presented to the ED with chief complaints of 3 days of palpitations, shortness of breath before his admission. On arrival to the ED patient was found to have atrial fibrillation with RVR and was started on a diltiazem drip to control his heart rate. Patient progressed to have cardiac arrest secondary to ventricular arrhythmias possibly ventricular tachycardia or torsades de Pointe. Patient required CPR and ACLS maneuvers for 8 minutes followed by endotracheal intubation, obtained by ROSC. Patient was initially on amiodarone drip which was later discontinued after magnesium was given for QT prolongation. Due to clinical status obtained history of present illness and past medical history from EMR and who is at bedside. Could not obtain review of systems. Cardiology consulted for elevated troponins. Past medical history: Hypertension, dyslipidemia, diabetes, paroxysmal atrial fibrillation diagnosed in 2017 (chads Vasc 7), 2019 CVA Past surgical history: Appendectomy Family history: Two brothers had heart disease requiring CABG at the age of 40 and 50 respectively, brother had lung cancer, mother had breast cancer Social history: with . Ex tobacco abuse (eight pack-year history of smoking) quit 30 years ago. Denies current tobacco, alcohol and other drug abuse Allergies: Denies Home medication: Pradaxa 150 mg p.o. daily, atorvastatin 40 mg p.o. daily, hydrochlorothiazide 12.5 mg p.o. daily, lisinopril 20 mg p.o. daily, glipizide, metformin a 1000 mg p.o. b.i.d., metoprolol (he quit taking for four months since it made him tired). 06/30/25: Patient seen and examined at bedside. Patient is currently sedated and on mechanically ventilation, with ventilator settings at tidal volume 500, FiO2 30%, peep at 5, off of pressors phenylephrine and norepinephrine. 07/01/2025: Patient seen and examined at bedside. Patient is currently sedated and mechanically ventilated. Patient today has fever and elevated WBC, blood culture ordered, started on vancomycin, meropenem. Patient is on pressor Levophed 9, patient's HR 150- 160s, order was given of metoprolol IV 5 mg with partial control of the RVR, also digoxin loading dose given. Metoprolol 25 mg PO daily was also placed for tomorrow. CPAP trial today failed. We will try again tomorrow. Objective vital signs Vital Sign Date Time Temp Pulse Resp B/P (MAP) Pulse Ox O2 Delivery O2 Flow Rate FiO2 07/01/25 16:08 119 18 125/57 (79) 99 30 07/01/25 13:00 100.2 212.4 07/01/25 12:00 Mechanical Ventilator+ Total Intake and Output 06/30/25 06/30/25 07/01/25 15:00 23:00 07:00 Intake Total 480.937 ml 232.0 ml 353.25 ml Output Total 400 ml 300 ml Balance 480.937 ml -168.0 ml 53.25 ml medications Current Medications Medications Dose Ordered Sig/Jesse Route Start Time Stop Time Status Last Admin Dose Admin Atorvastatin Calcium 40 mg HS PO 06/29/25 22:00 06/30/25 21:21 40 MG Norepinephrine Bitartrate 250 ml @ 3.75 mls/hr Q24H IV 06/29/25 06:15 07/01/25 02:02 3.75 MLS/HR Fentanyl Citrate 250 ml @ 2.5 mls/hr Q24H IV 06/29/25 06:15 07/01/25 14:07 12.5 MLS/HR Aspirin 81 mg DAILY PO 06/30/25 10:00 07/01/25 10:31 81 MG Insulin Human Regular HS SC 06/29/25 22:00 Cancel Insulin Human Regular AC SC 06/29/25 17:00 Cancel Pantoprazole Sodium 40 mg DAILY IV 06/30/25 10:00 07/01/25 10:31 40 MG Clopidogrel Bisulfate 75 mg DAILY PO 06/30/25 10:00 07/01/25 10:31 75 MG Diagnostic Test (Pha) 1 strip IQ4HR 06/29/25 20:00 07/01/25 16:16 1 STRIP Insulin Human Regular IQ4HR SC 06/29/25 20:00 07/01/25 16:19 9 UNITS Dextrose 50 ml UD PRN IV 06/29/25 17:30 Midazolam HCl 100 ml @ 1 mls/hr Q24H IV 06/29/25 18:00 07/01/25 02:36 6 MLS/HR Enoxaparin Sodium 100 mg Q12HR SC 06/30/25 10:00 07/01/25 10:33 100 MG Furosemide 20 mg DAILY IV 07/01/25 10:00 07/01/25 10:32 20 MG Enteral Nutritional Formula 1,000 ml 45ML/HR GT 06/30/25 17:15 07/01/25 07:29 1,000 ML Metoprolol Succinate 25 mg DAILY PO 07/02/25 10:00 Examination Patient lying in bed, is mechanically intubated and sedated HEENT: Normocephalic, atraumatic, moist mucous membranes Respiratory/pulmonary: Clear lungs bilaterally, vesicular murmurs present in almost all lung roberts, no associated crackles or wheezes. Cardiovascular: Normal heart sounds S1 and S2 with no associated murmurs Abdomen: Abdomen nondistended, there is no pain to palpation in any of the abdominal quadrants, no palpable masses. Extremities: There is no peripheral edema present at the lower extremities. Bilateral erythematous and ulcerated lesions. Skin: No rashes or pruritus, there is no sacral edema present at this time. Neurological: Pupils are isocoric and reactive, gag and cough reflex intact laboratory and microbiology Laboratory Tests 07/01/25 03:25 Test 07/01/25 03:25 Range/Units Serum Glucose 258 #H 74-106 mg/dL Microbiology Date/Time Source Procedure Growth Status 06/30/25 17:01 Voided Urine Urine Culture - Preliminary Resulted 06/29/25 06:40 Sputum Gram Stain - Final Resulted 06/29/25 06:40 Sputum Respiratory Culture - Preliminary Resulted 06/29/25 04:30 Nose MRSA Screen - Final Complete Problem List/Assessment/Plan Problem List/Assessment/Plan Neurology Acute metabolic encephalopathy History of CVA-with residual aphasia, right-sided deficit -Sedation/neurological status: Rass score -3 - off of Levophed, phenylephrine Cardiology Cardiac arrest secondary to ventricular arrhythmia (ventricular tachycardia, torsade de pointes) NSTEMI type 1 status post PCI Newly diagnosed coronary artery disease - triple-vessel disease Prolonged QT Paroxysmal atrial fibrillation with RVR Hypertension Dyslipidemia - EKG showed atrial fibrillation with anterior T-wave inversions, prolonged QT - coronary angiography showed severe triple-vessel disease with acutely occluded circumflex status post PCI with 1 drug-eluting stent placed. -ventriculogram showed LVEF of 15% - ordered echocardiography, pending -avoid QT prolongation medications - Dany Vasc score 7 -currently on vasopressors Levophed, phenylephrine -severe CAD in LAD and RCA, plan to do angiography on Thursday -patient given aspirin, atorvastatin, clopidogrel Respiratory acute hypoxic respiratory failure likely due to cardiac arrest -ventilator settings: VT 500, respiratory rate 17, FiO2 30 %, PEEP 5 - chest x-ray: Normal Genitourinary/kidney Acute kidney injury likely due to be VMN -medication: Given Lasix 20 mg once -strict I&Os -nephrotoxic drugs Endocrine Uncontrolled diabetes mellitus, HbA1c 10.6 - on insulin sliding scale Infectious -urine culture preliminary negative -blood cultures ordered, as WBC elevated and fever present -started on vancomycin, meropenem Transaminitis - monitor labs Obesity BMI 33.0 Lines / Tubes / Devices Airway: Intubated via ETT on 06/29 Vascular Access: Central line 06/29 Drips: Fentanyl, midazolam, norepinephrine, phenylephrine, Versed Prophylaxis / Supportive Care DVT Prophylaxis: Lovenox. GI Prophylaxis: Protonix. Goals of care discussed with the patient family for more than 29 minutes: Full code state Patient care updated to (Myrna), addressed all concerns. Critical care time spent excluding procedures 83 minutes Plan discussed with Dr. Mason and RN Impression: Acute hypoxic respiratory failure On mechanical ventilator Acute metabolic encephalopathy NSTEMI type 1, status post PCI Paroxysmal atrial fibrillation with RVR Acute kidney injury History of CVA Events: Remains on vent support On AC mode; RR 18, VT 500, PEEP 5, FiO2 30% Cardiology recs appreciated. Pt with tachycardia - given metoprolol Increased WBC, febrile Started on abx F/u cultures Pressors for hemodynamic support On Levophed 2 mcg/min Titrate to keep mean arterial pressure greater than 65 mmHg. Cardiology recs appreciated. EF of 15%. Possible LHC on Thursday. Continue tube feedings via OGT. Labs and imaging reviewed. Plan: s/p intubation on mechanical ventilator. On AC mode; RR 18, VT 500, PEEP 5, FiO2 30% Titrate FIO2 to keep O2 saturation above 90%. VAP bundle. Daily ABG and CXR while intubated Sedate for ventilator synchrony. Patient is s/p cardiac arrest on 06/29/25. Patient presented cardiac arrest with requirement of ACLS maneuver for 8 minutes with endotracheal intubation EKG showed atrial fibrillation with anterior T-wave inversions, prolonged QT (longest was 580 milliseconds) Completed coronary angiography which showed severe triple-vessel disease with acutely occluded circumflex currently status post PCI with one STANLEY placed. Ventriculogram shows LVEF of 15%. Revascularized culprit vessel. Planning on completing staged PCI (can be completed in the center or in [place]). Initially was on heparin drip, now on therapeutic enoxaparin for A-fib. Cardiology recs appreciated. Continue antibiotics. Lactic acid normal. Pressors for hemodynamic support Titrate to keep mean arterial pressure greater than 65 mmHg. Accu-Cheks, ISS. Dietary recommendations appreciated. Monitor renal function Monitor electrolytes. Supplement as necessary. Monitor ins and outs. Potassium supplementation Maintain euvolemia. GI prophylaxis. DVT prophylaxis. Discussed with RN, Dr. Love. Prognosis: Poor given patient's multiple co-morbidities. Condition: Critical Rest of plan per hospitalist and other consultants. A total of 35 minutes of critical care time was spent reviewing the patient record, examining the patient, making a diagnostic and therapeutic plan, discussing this plan with the medical personnel, following up on diagnostic studies and following the patient for clinical stability excluding any and all procedures. At least 50% of this time was spent in direct, [id number] contact. Thank you for allowing me to participate in this patient's care. Further recommendations will depend on the patient's clinical course. Please do not hesitate to contact me if you have any questions or concerns. This medical document was created using an electronic medical record system with [employer] dictation system. Although these documentations are being carefully reviewed, there may still be some phonetic and typographical changes. The errors are purely typographical, due to imperfection on the software program, and do not reflect any compromise in the patient's medical care. Plan discussed with: Spouse My Orders My Orders Orders - CYNTHIA LOVE Procedure Category Date Status Time Chest Xray 1 View XY 07/01/25 Resulted 04:00 Abg W/ Co-Ox RT 07/01/25 Logged 04:00 Dietary Evaluation Review Comments: 1. Protein needs based on 1.2-1.5g/protein/kg IBW d/t low GFR 2. While being intubated, offer TF Vital HP @45ml/hr, in 24 hr, Pt will receive 94g protein, 1080lkcal 903ml free water, meeting pts needs at 97% protein and 100% energy. 3. Consider TPN to meet pt's needs if Pt does not tolerate TF well. 4. Reassess when pt extubated, advance to CCHO-60 PO diet after passing a TECHNICAL BUSINESS ANALYST evluation. Expected Outcomes/Goals: off intubation, advance to CCHO-60 Cardiac diet, gradual wt loss CYNTHIA LOVE Jul 01, 2025 17:05 ENRIQUE MASON MD Jul 01, 2025 22:37
[2025-07-01] MEDS: ACETAMINOPHEN 325 MG TAB PO PRN (17:20)
[2025-07-01] MEDS: METOPROLOL TARTRATE 25 MG TAB PO ONE (19:00)
[2025-07-02] VITALS (101 sets, daily range): BP systolic 75–152; BP diastolic 33–79; PULSE 82–121; RESP 12–33; TEMP 98.2–100.8; O2SAT 81–100
[2025-07-02 03:39] LABS: Hematocrit 34.9 % (41.0-53.0); Hemoglobin 11.7 g/dL (13.5-17.5); Mean Corpuscular Hemoglobin 27.7 pg (28.0-32.0); Mean Corpuscular Volume 82.4 fL (80.0-100.0); Nucleated Red Blood Cells % 0.0 %
[2025-07-02 03:57] LABS: Albumin 3.2 g/dL (3.2-4.8); Alkaline Phosphatase 81 U/L (46-116); Anion Gap 9 (5-15); BUN/Creatinine Ratio 32.4 (10.0-20.0); Carbon Dioxide 26 mmol/L (20-31); Chloride 106 mmol/L (98-107); Magnesium 2.4 mg/dL (1.6-2.6); Potassium 4.0 mmol/L (3.5-5.1); Sodium 141 mmol/L (136-145); Total Protein 6.2 g/dL (5.7-8.2)
[2025-07-02 03:58] LABS: Alanine Aminotransferase 59 U/L (7-40); Bilirubin, Total 1.0 mg/dL (0.2-1.0); Blood Urea Nitrogen 44 mg/dL (9-23); Calcium 8.6 mg/dL (8.7-10.4); Glucose 198 mg/dL (74-106)
[2025-07-02 06:44] LABS: Base Excess -1.6 mmol/L (-2.0-3.0)
--- NOTE | 2025-07-02 06:59 | DVHPNRES ---
Progress Note Date Seen: Jul 02, 2025 Resident Creating Document: JOSELYN STEIN RESIDENT Medical Necessity Reason Pt with a Central, PICC or Fol: Yes The following are medically ne: Central Line, Lau Catheter Reason for lau catheter: Strict I&O Subjective Review of Systems Hardy Almanza is a 74-year-old male patient who presents to ED with chief complaint of palpitation three days before his admission. Upon his arrival to the emergency department he was diagnosed with atrial fibrillation with rapid ventricular response and placed on a diltiazem drip to control his heart rate. Patient progressed with cardiac arrest secondary to ventricular arrhythmias (ventricular tachycardia and torsades de Pointe) requiring CPR and ACLS maneuvers (three epinephrine, 300 mg of amiodarone and defibrillation x2) for 8 minutes with endotracheal intubation, obtaining ROSC. Patient initially was placed on amiodarone drip, but then was discontinued and indicated magnesium due to prolonged QT. Due to clinical status obtained history of present illness and past medical history from EMR and who is at bedside. Could not obtain review of systems. Cardiology consulted for elevated troponins. 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 Ex tobacco abuse (eight pack-year history of smoking) quit 30 years ago. Denies current tobacco, alcohol and other drug abuse Allergies: Denies Home medication: Pradaxa 150 mg p.o. daily, atorvastatin 40 mg p.o. daily, hydrochlorothiazide 12.5 mg p.o. daily, lisinopril 20 mg p.o. daily, glipizide, metformin a 1000 mg p.o. b.i.d., metoprolol (he quit taking for four months since it made him tired). Patient seen and examined at bedside. Currently under mechanical assisted ventilation, IV vasopressors on standby. Could not obtain review of systems due to clinical status. Avoid QT prolonging medication due to prolonged QTC, no episodes of V-tach, but if needed lidocaine can be given (avoid amiodarone) Objective vital signs Vital Sign Date Time Temp Pulse Resp B/P (MAP) Pulse Ox O2 Delivery O2 Flow Rate FiO2 07/02/25 06:22 105 18 107/56 (73) 96 30 07/02/25 06:00 Mechanical Ventilator+ 07/02/25 05:15 99.1 210.4 Total Intake and Output 07/01/25 07/01/25 07/02/25 15:00 23:00 07:00 Intake Total 473.75 ml 505.5 ml Output Total 500 ml 425 ml Balance -26.25 ml 80.5 ml medications Current Medications Medications Dose Ordered Sig/Jesse Route Start Time Stop Time Status Last Admin Dose Admin Atorvastatin Calcium 40 mg HS PO 06/29/25 22:00 07/01/25 22:18 40 MG Norepinephrine Bitartrate 250 ml @ 3.75 mls/hr Q24H IV 06/29/25 06:15 07/01/25 02:02 3.75 MLS/HR Fentanyl Citrate 250 ml @ 2.5 mls/hr Q24H IV 06/29/25 06:15 07/01/25 14:07 12.5 MLS/HR Aspirin 81 mg DAILY PO 06/30/25 10:00 07/01/25 10:31 81 MG Insulin Human Regular HS SC 06/29/25 22:00 Cancel Insulin Human Regular AC SC 06/29/25 17:00 Cancel Pantoprazole Sodium 40 mg DAILY IV 06/30/25 10:00 07/01/25 10:31 40 MG Clopidogrel Bisulfate 75 mg DAILY PO 06/30/25 10:00 07/01/25 10:31 75 MG Diagnostic Test (Pha) 1 strip IQ4HR 06/29/25 20:00 07/02/25 04:10 1 STRIP Insulin Human Regular IQ4HR SC 06/29/25 20:00 07/02/25 04:11 3 UNITS Dextrose 50 ml UD PRN IV 06/29/25 17:30 Midazolam HCl 100 ml @ 1 mls/hr Q24H IV 06/29/25 18:00 07/01/25 21:02 6 MLS/HR Enoxaparin Sodium 100 mg Q12HR SC 06/30/25 10:00 07/01/25 22:18 100 MG Furosemide 20 mg DAILY IV 07/01/25 10:00 07/01/25 10:32 20 MG Enteral Nutritional Formula 1,000 ml 45ML/HR GT 06/30/25 17:15 07/01/25 07:29 1,000 ML Acetaminophen 650 mg Q4HP PRN PO 07/01/25 17:00 07/01/25 17:20 650 MG Examination Patient lying in bed, under sedoanalgesia due to mechanical ventilation General: RASS -3, afebrile, mucosae are moist Cardiovascular: Normal S1 and S2. Holosystolic murmur best heard in apex which radiates towards axilla intensity 4/6. No gallops or rubs Respiratory: Mechanically assisted ventilation, equal bilateral airway entree. Clear lung sounds on auscultation Abdomen: Soft, nontender, no organomegaly, normal bowel sounds MSK/skin: Mobilization of limbs cannot be evaluated. Skin is dry and warm. Presents bilateral erythematous and ulcerated lesions. Neurological: Orientation cannot be assessed. No apparent motor no sensitive deficits. Pupils are isocoric and reactive laboratory and microbiology Laboratory Tests 07/02/25 02:55 Test 07/02/25 02:55 Range/Units Serum Glucose 198 H 74-106 mg/dL Microbiology Date/Time Source Procedure Growth Status 06/30/25 17:30 Blood Blood Culture - Preliminary NO GROWTH AFTER 24 HOURS OF INCUBATION. Resulted 06/30/25 17:01 Voided Urine Urine Culture - Preliminary Resulted 06/29/25 06:40 Sputum Gram Stain - Final Resulted 06/29/25 06:40 Sputum Respiratory Culture - Preliminary Resulted 06/29/25 04:30 Nose MRSA Screen - Final Complete Problem List/Assessment/Plan Problem List/Assessment/Plan Assessment Cardiac arrest secondary to ventricular arrhythmia (ventricular tachycardia and torsades de Pointe) - status post ROSC Acute respiratory failure NSTEMI type 1 - status post PCI with 4 STANLEY to circumflex Newly diagnosed coronary artery disease - triple-vessel disease Prolonged QT Paroxysmal atrial fibrillation with RVR (chads Vasc 7) - secondary hypercoagulability state Metabolic acidosis with elevated anion gap secondary to hyperlacticacidemia KEANU hemodynamically mediated (VMN) 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 Ventriculogram shows LVEF of 15%. Revascularized culprit vessel. Planning on completing staged PCI (can be completed in the [place] or in [place]). 07/01/25: HR 150- 160s, order was given of metoprolol IV 5 mg with partial control of the RVR, also digoxin loading dose given. Metoprolol 25 mg PO daily was also placed for tomorrow. Due to QT prolongation and previous torsades, we are cautious to use amiodarone. No episodes of Vtach but if is needed lidocaine can be given, also we are cautious to not be too aggressive due to the recent wean off the pressors. We still continue f/u for next week procedure Initially was on heparin drip, now on therapeutic enoxaparin for A-fib. Ordered echocardiogram: pending report Currently on mechanical assisted ventilation Avoid QT prolonging medication Replenish electrolytes. Goal magnesium above two and goal potassium above four. On insulin sliding scale Goals of care discussed with (Myrna) for over 18 minutes: Full code status Discussed plan with Dr. Pierre, and nurses: Patient currently ICU status due to mechanical assisted ventilation and IV vasopressors on stand by. Completed coronary angiography which showed triple-vessel disease with acute circumflex occlusion status post PCI with 4 STANLEY placed. Revascularized culprit vessel, planning on staged PCI once patient is more stable. Can be completed in the [place] or [place]. Optimize electrolytes, avoid QT prolonging medication. Recommend initiating IV antibiotics (tachycardia may be secondary to sepsis) Patient has poor prognosis. Critical care time spent including discussion with nursing and family, excluding procedures: 69 minutes. Plan discussed with: Other (Nurses) Dietary Evaluation Review Comments: 1. Protein needs based on 1.2-1.5g/protein/kg IBW d/t low GFR 2. While being intubated, offer TF Vital HP @45ml/hr, in 24 hr, Pt will receive 94g protein, 1080lkcal 903ml free water, meeting pts needs at 97% protein and 100% energy. 3. Consider TPN to meet pt's needs if Pt does not tolerate TF well. 4. Reassess when pt extubated, advance to CCHO-60 PO diet after passing a INFORMATION SYSTEMS SECURITY MANAGER evluation. Expected Outcomes/Goals: off intubation, advance to CCHO-60 Cardiac diet, gradual wt loss Visit Coding Cardiology RES Date of Service: Jul 02, 2025 Billing Provider: PHILLIP PIERRE Sr., MD Cardiology Common Codes: [id number] HOSP CARE(High Cardiology Secondary Visit Cod: [id number] CARE PLAN 30 MINUTES JOSELYN STEIN RESIDENT Jul 02, 2025 06:59
--- NOTE | 2025-07-02 07:12 | DVH ---
CHEST RADIOGRAPH Indication: on vent Technique: Single frontal view of the chest was obtained Comparison: XY CHEST XRAY 1 VIEW on DOS: 07/01/25, XY CHEST PORTABLE on DOS: 06/30/25, XY CHEST XRAY 1 VIEW on DOS: 06/29/25 IMPRESSION: Support lines and tubes appear unchanged in satisfactory position. The heart remains prominent in si ze. Patchy airspace opacities of the lung bases appear similar. No sizable effusion or pneumothorax. No significant interval change. HS:Y
[2025-07-02] MEDS ORDERED: METOPROLOL SUCCINATE XL 50 MG TAB PO SCH (10:00)
--- NOTE | 2025-07-02 10:07 | ECG ---
[facility] Test Date: 2025-06-30 Test Time: 12:11:04 Pat Name: DIVYA GIRALDO Department: Respiratoy Room: 0266 A Gender: M Solutions Architect: Fuad : 1950 Requested By: JOSELYN STEIN Order Number: [id number] Reading MD: Paul Mtz Measurements Intervals [place] Rate: 86 P: 0 MS: 0 QRS: 120 QRSD: 100 T: 205 QT: 486 QTc: 582 Interpretive Statements Atrial fibrillation Anterior infarct, age indeterminate Abnormal T, consider ischemia, diffuse leads Lateral leads are also involved Prolonged QT interval Electronically Signed On 07-03-2025 15:28:20 PDT by Paul Mtz Please click the below link to view image of tracing.
--- NOTE | 2025-07-02 10:10 | ECG ---
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
[2025-07-02] MEDS ORDERED: VANCOMYCIN PER PHARMACY 0 MG IV SCH (13:15)
--- NOTE | 2025-07-02 14:06 | DVHSR ---
APPROVED REPORT EXAM: Two-dimensional and M-mode echocardiogram with Doppler and color Doppler. Blood Pressure: 81/59 mmHg INDICATION EF RISK FACTORS Height: 68, Weight: 200 DIMENSIONS LVDd5.4 (3.8-5.7cm)LA (2D)4.8 (1.9-4.0cm)Aortic Root3.6 (2.0-3.7cm) LVDs4.9 (2.5-4.0cm)LA (MM) (1.9-4.0cm)Aortic Cusp Exc0.9 (1.5-2.0cm) EF (%) 20.0 (55-70%)Rt. Atrium5.2 (1.9-4.0cm)Asc. Aorta cm IVSd1.3 (0.7-1.1cm)RV (D) (1.8-2.4cm) PWd1.5 (0.7-1.1cm) Mitral Valve MitralMitral Stenosis E wave0.99m/sMV Mean GR.2mmHg A wavem/sMV Peak GR.115mmHg E/A ratio0.02D MVAcm2 Aortic Valve Aortic ValveAortic Stenosis V10.56m/Arjun Mean GR.7mmHg V21.77m/Arjun Peak GR.13mmHg LVOT Diameter2.5 (1.8-2.4cm)Doppler AVA1.55cm2 AI P 1/2 Ygkh269.49ms Tricuspid Valve TR Velocity2.91m/s [id number] Other Information Technically limited study due to patient on a vent. Conclusion lvef 20% moderate LV enlargement severe end stage HF RV dysfunction aortic sclerosis moderate MAC mild cathy regurg mild tricuspid regurg moderate pulm htn
--- NOTE | 2025-07-02 14:18 | DVHPNRES ---
Progress Note Date Seen: Jul 02, 2025 Resident Creating Document: ANIBAL ORTEGA RESIDENT Medical Necessity Reason Pt with a Central, PICC or Fol: Yes The following are medically ne: Central Line, Lau Catheter Reason for lau catheter: Strict I&O Subjective Review of Systems Patient is a 74-year-old male with past medical history of hypertension, diabetes type 2, dyslipidemia, paroxysmal atrial fibrillation, CVA in 2019, presented to the ED with chief complaints of 3 days of palpitations, shortness of breath before his admission. On arrival to the ED patient was found to have atrial fibrillation with RVR and was started on a diltiazem drip to control his heart rate. Patient progressed to have cardiac arrest secondary to ventricular arrhythmias possibly ventricular tachycardia or torsades de Pointe. Patient required CPR and ACLS maneuvers for 8 minutes followed by endotracheal intubation, obtained by ROSC. Patient was initially on amiodarone drip which was later discontinued after magnesium was given for QT prolongation. Due to clinical status obtained history of present illness and past medical history from EMR and who is at bedside. Could not obtain review of systems. Cardiology consulted for elevated troponins. Past medical history: Hypertension, dyslipidemia, diabetes, paroxysmal atrial fibrillation diagnosed in 2017 (chads Vasc 7), 2019 CVA Past surgical history: Appendectomy Family history: Two brothers had heart disease requiring CABG at the age of 40 and 50 respectively, brother had lung cancer, mother had breast cancer Social history: with . Ex tobacco abuse (eight pack-year history of smoking) quit 30 years ago. Denies current tobacco, alcohol and other drug abuse Allergies: Denies Home medication: Pradaxa 150 mg p.o. daily, atorvastatin 40 mg p.o. daily, hydrochlorothiazide 12.5 mg p.o. daily, lisinopril 20 mg p.o. daily, glipizide, metformin a 1000 mg p.o. b.i.d., metoprolol (he quit taking for four months since it made him tired). 06/30/25: Patient seen and examined at bedside. Patient is currently sedated and on mechanically ventilation, with ventilator settings at tidal volume 500, FiO2 30%, peep at 5, off of pressors phenylephrine and norepinephrine. 07/01/2025: Patient seen and examined at bedside. Patient is currently sedated and mechanically ventilated. Patient today has fever and elevated WBC, blood culture ordered. Patient is on pressor Levophed 9, patient's HR 150- 160s, order was given of metoprolol IV 5 mg with partial control of the RVR, also digoxin loading dose given. Metoprolol 25 mg PO daily was also placed for tomorrow. 07/02/2025: Patient seen and examined in ICU. Hr is under controlled. Intubated. temperature 99.3 started cefepime and vancomycin. blood culture G + bacteria. Objective vital signs Vital Sign Date Time Temp Pulse Resp B/P (MAP) Pulse Ox O2 Delivery O2 Flow Rate FiO2 07/02/25 12:00 92 18 80/53 (62) 100 30 07/02/25 08:00 Mechanical Ventilator+ 07/02/25 07:30 99.9 211.8 Total Intake and Output 07/01/25 07/01/25 07/02/25 14:59 22:59 06:59 Intake Total 451.50 ml 603.75 ml Output Total 500 ml 425 ml Balance -48.50 ml 178.75 ml medications Current Medications Medications Dose Ordered Sig/Jesse Route Start Time Stop Time Status Last Admin Dose Admin Atorvastatin Calcium 40 mg HS PO 06/29/25 22:00 07/01/25 22:18 40 MG Norepinephrine Bitartrate 250 ml @ 3.75 mls/hr Q24H IV 06/29/25 06:15 07/01/25 02:02 3.75 MLS/HR Fentanyl Citrate 250 ml @ 2.5 mls/hr Q24H IV 06/29/25 06:15 07/01/25 14:07 12.5 MLS/HR Aspirin 81 mg DAILY PO 06/30/25 10:00 07/02/25 10:07 81 MG Insulin Human Regular HS SC 06/29/25 22:00 Cancel Insulin Human Regular AC SC 06/29/25 17:00 Cancel Pantoprazole Sodium 40 mg DAILY IV 06/30/25 10:00 07/02/25 10:06 40 MG Clopidogrel Bisulfate 75 mg DAILY PO 06/30/25 10:00 07/02/25 10:07 75 MG Diagnostic Test (Pha) 1 strip IQ4HR 06/29/25 20:00 07/02/25 10:07 1 STRIP Insulin Human Regular IQ4HR SC 06/29/25 20:00 07/02/25 10:24 9 UNITS Dextrose 50 ml UD PRN IV 06/29/25 17:30 Midazolam HCl 100 ml @ 1 mls/hr Q24H IV 06/29/25 18:00 07/02/25 10:06 7 MLS/HR Enoxaparin Sodium 100 mg Q12HR SC 06/30/25 10:00 07/02/25 10:10 100 MG Furosemide 20 mg DAILY IV 07/01/25 10:00 07/02/25 10:07 20 MG Enteral Nutritional Formula 1,000 ml 45ML/HR GT 06/30/25 17:15 07/01/25 07:29 1,000 ML Acetaminophen 650 mg Q4HP PRN PO 07/01/25 17:00 07/01/25 17:20 650 MG Cefepime HCl 50 ml @ 12.5 mls/hr Q12HR IV 07/02/25 22:00 Vancomycin HCl 0 ml @ 0 mls/hr PER PHARMACY IV 07/02/25 13:15 Vancomycin HCl 250 ml @ 250 mls/hr Q1H IV 07/02/25 13:45 07/02/25 15:44 Examination HEENT: Normocephalic, atraumatic, moist mucous membranes Respiratory/pulmonary: Clear lungs bilaterally, vesicular murmurs present in almost all lung roberts, no associated crackles or wheezes. Cardiovascular: Normal heart sounds S1 and S2 with no associated murmurs Abdomen: Abdomen nondistended, there is no pain to palpation in any of the abdominal quadrants, no palpable masses. Extremities: There is no peripheral edema present at the lower extremities. Bilateral erythematous and ulcerated lesions. Skin: No rashes or pruritus, there is no sacral edema present at this time. Neurological: Pupils are isocoric and reactive, gag and cough reflex intact laboratory and microbiology Laboratory Tests 07/02/25 02:55 Test 07/02/25 02:55 Range/Units Serum Glucose 198 H 74-106 mg/dL Microbiology Date/Time Source Procedure Growth Status 07/01/25 22:35 Urine - Catheterized Urine Culture - Preliminary Resulted 07/01/25 22:30 Sputum Gram Stain - Final Resulted 07/01/25 22:30 Sputum Respiratory Culture - Preliminary Resulted 07/01/25 18:15 Blood Blood Culture - Preliminary Resulted 06/29/25 04:30 Nose MRSA Screen - Final Complete Problem List/Assessment/Plan Problem List/Assessment/Plan Neurology Acute metabolic encephalopathy History of CVA-with residual aphasia, right-sided deficit -Sedation/neurological status: Rass score -3 Cardiology Cardiac arrest secondary to ventricular arrhythmia (ventricular tachycardia, torsade de pointes) NSTEMI type 1 status post PCI Newly diagnosed coronary artery disease - triple-vessel disease Prolonged QT Paroxysmal atrial fibrillation with RVR Hypertension Dyslipidemia - EKG showed atrial fibrillation with anterior T-wave inversions, prolonged QT - coronary angiography showed severe triple-vessel disease with acutely occluded circumflex status post PCI with 1 drug-eluting stent placed. -ventriculogram showed LVEF of 15% - echocardiography: Lvef 20%, moderate LV enlargement,severe end stage HF -avoid QT prolongation medications - Dany Vasc score 7 -severe CAD in LAD and RCA, plan to do angiography on Thursday -patient given aspirin, atorvastatin, clopidogrel -therapuetic lovenox Respiratory acute hypoxic respiratory failure likely due to cardiac arrest -ventilator settings: VT 500, respiratory rate 30, FiO2 30 %, PEEP 5 Genitourinary/kidney Acute kidney injury likely due to be VMN -medication: Lasix 20 mg IV daily -strict I&Os -nephrotoxic drugs Endocrine Uncontrolled diabetes mellitus, HbA1c 10.6 - on insulin sliding scale Infectious septic shock due to bacteremia bacteremia -blood culture : Gram Positive Cocci in clusters -respiratory culture: ruling pathogen -IV cefepime and vancomycin Transaminitis - monitor labs Obesity BMI 33.0 Lines / Tubes / Devices Airway: Intubated via ETT on 06/29 Vascular Access: Central line 06/29 Drips: Fentanyl, midazolam Prophylaxis / Supportive Care DVT Prophylaxis: Lovenox. GI Prophylaxis: Protonix. Goals of care discussed with the patient family for more than 29 minutes: Full code state Patient care updated to (Myrna), addressed all concerns at bed side. Critical care time spent excluding procedures 80 minutes Plan discussed with Dr. Mason and RN _ Impression: Acute hypoxic respiratory failure On mechanical ventilator Acute metabolic encephalopathy NSTEMI type 1, status post PCI Paroxysmal atrial fibrillation with RVR Acute kidney injury History of CVA Events: Remains on vent support On AC mode; RR 18, VT 500, PEEP 5, FiO2 30% Sedated on Versed. Fentanyl drip Off Levophed, hemodynamically stable. Cardiology recs appreciated. EF of 15%. Possible LHC on Thursday. Continue antibiotics F/u cultures Bacteremia, blood cx positive for GPCs WBC currently within normal Monitor for fevers - temperature of 99.3 Follow up Cardiology recs. Pt was started on metoprolol for tachycardia Continue tube feedings via OGT. Labs and imaging reviewed. Plan: s/p intubation on mechanical ventilator. On AC mode; RR 18, VT 500, PEEP 5, FiO2 30% Titrate FIO2 to keep O2 saturation above 90%. VAP bundle. Daily ABG and CXR while intubated Sedate for ventilator synchrony. Patient is s/p cardiac arrest on 06/29/25. Patient presented cardiac arrest with requirement of ACLS maneuver for 8 minutes with endotracheal intubation EKG showed atrial fibrillation with anterior T-wave inversions, prolonged QT (longest was 580 milliseconds) Completed coronary angiography which showed severe triple-vessel disease with acutely occluded circumflex currently status post PCI with one STANLEY placed. Ventriculogram shows LVEF of 15%. Revascularized culprit vessel. Planning on completing staged PCI (can be completed in the center or in [place]). Initially was on heparin drip, now on therapeutic enoxaparin for A-fib. Cardiology recs appreciated. Continue antibiotics. Lactic acid normal. Pressors for hemodynamic support Titrate to keep mean arterial pressure greater than 65 mmHg. Accu-Cheks, ISS. Dietary recommendations appreciated. Monitor renal function Monitor electrolytes. Supplement as necessary. Monitor ins and outs. Maintain euvolemia. GI prophylaxis. DVT prophylaxis. Discussed with NAM Townsend, Dr. Ortega Prognosis: Poor given patient's multiple co-morbidities. Condition: Critical Rest of plan per hospitalist and other consultants. A total of 35 minutes of critical care time was spent reviewing the patient record, examining the patient, making a diagnostic and therapeutic plan, discussing this plan with the medical personnel, following up on diagnostic studies and following the patient for clinical stability excluding any and all procedures. At least 50% of this time was spent in direct, [id number] contact. Thank you for allowing me to participate in this patient's care. Further recommendations will depend on the patient's clinical course. Please do not hesitate to contact me if you have any questions or concerns. This medical document was created using an electronic medical record system with miiCard dictation system. Although these documentations are being carefully reviewed, there may still be some phonetic and typographical changes. The errors are purely typographical, due to imperfection on the software program, and do not reflect any compromise in the patient's medical care. Plan discussed with: Spouse, Other (RN) My Orders My Orders Orders - ANIBAL ORTEGA Procedure Category Date Status Time Cefepime 1gm/50ml PHA 07/02/25 In Process (Maxipime 1gm/50ml) 13:15 Cefepime 1gm/50ml PHA 07/02/25 In Process (Maxipime 1gm/50ml) 22:00 Vancomycin Per PHA 07/02/25 In Process Pharmacy 13:15 Complete Blood Count LAB 07/03/25 Verified 04:00 Creatinine LAB 07/03/25 Verified 04:00 Vancomycin,Random LAB 07/03/25 Verified 04:00 Vancomycin 1gm/250ml PHA 07/02/25 In Process Kit 13:45 Dietary Evaluation Review Comments: 1. Protein needs based on 1.2-1.5g/protein/kg IBW d/t low GFR 2. While being intubated, offer TF Vital HP @45ml/hr, in 24 hr, Pt will receive 94g protein, 1080lkcal 903ml free water, meeting pts needs at 97% protein and 100% energy. 3. Consider TPN to meet pt's needs if Pt does not tolerate TF well. 4. Reassess when pt extubated, advance to CCHO-60 PO diet after passing a SOURCING INTERN evluation. Expected Outcomes/Goals: off intubation, advance to CCHO-60 Cardiac diet, gradual wt loss ANIBAL ORTEGA RESIDENT Jul 02, 2025 14:18 ENRIQUE MASON MD Jul 03, 2025 03:40
[2025-07-02] MEDS: VANCOMYCIN 1GM/250ML KIT 250 ML IV SCH (15:20)
[2025-07-02] MEDS: CEFEPIME 1GM/50ML 50 ML IV ONE (19:14)
[2025-07-02] MEDS ORDERED: CEFEPIME 1GM/50ML 50 ML IV SCH (22:00)
[2025-07-03] VITALS (109 sets, daily range): BP systolic 86–142; BP diastolic 40–64; PULSE 65–109; RESP 10–25; TEMP 99.5–100.6; O2SAT 95–100
[2025-07-03 03:58] LABS: Hematocrit 33.3 % (41.0-53.0); Hemoglobin 11.0 g/dL (13.5-17.5); Mean Corpuscular Hemoglobin 27.4 pg (28.0-32.0); Mean Corpuscular Volume 82.7 fL (80.0-100.0); Nucleated Red Blood Cells % 0.1 %
--- NOTE | 2025-07-03 05:19 | DVH ---
CHEST RADIOGRAPH Indication: Intubated Technique: 1 view Comparison: XY CHEST XRAY 1 VIEW on DOS: 07/02/25, XY CHEST XRAY 1 VIEW on DOS: 07/01/25, XY CHEST PO RTABLE on DOS: 06/30/25, XY CHEST XRAY 1 VIEW on DOS: 06/29/25, XY CHEST XRAY 1 VIEW on DOS: 06/29/25 FINDINGS: Lines and Tubes: Unchanged. Lungs/Pleura: Unchanged. Cardiomediastinum: Unchanged. Other: Unchanged osseous structures. IMPRESSION: No significant change from the previous study. Stable support devices. Similar bilateral inferior gr aded opacities, likely a combination of airspace disease and pleural effusion.
[2025-07-03 07:18] LABS: Base Excess 0.6 mmol/L (-2.0-3.0)
[2025-07-03 10:09] LABS: Chloride 106 mmol/L (98-107); Potassium 4.4 mmol/L (3.5-5.1); Sodium 141 mmol/L (136-145)
[2025-07-03 10:10] LABS: Anion Gap 6 (5-15); Carbon Dioxide 29 mmol/L (20-31)
[2025-07-03 10:12] LABS: Calcium 8.3 mg/dL (8.7-10.4); Hematocrit 35.9 % (41.0-53.0); Hemoglobin 11.8 g/dL (13.5-17.5); Mean Corpuscular Hemoglobin 27.6 pg (28.0-32.0); Mean Corpuscular Volume 83.6 fL (80.0-100.0); Nucleated Red Blood Cells % 0.0 %
[2025-07-03 10:15] LABS: BUN/Creatinine Ratio 33.9 (10.0-20.0)
[2025-07-03 10:16] LABS: Blood Urea Nitrogen 37 mg/dL (9-23); Glucose 275 mg/dL (74-106)
[2025-07-03] MEDS: CEFEPIME 1GM/50ML 50 ML IV SCH (11:01)
--- NOTE | 2025-07-03 13:58 | DVHPNRES ---
Progress Note Date Seen: Jul 03, 2025 Resident Creating Document: JOSELYN STEIN RESIDENT Medical Necessity Reason Pt with a Central, PICC or Fol: Yes The following are medically ne: Central Line, Lau Catheter Reason for lau catheter: Strict I&O Subjective Review of Systems Hardy Almanza is a 74-year-old male patient who presents to ED with chief complaint of palpitation three days before his admission. Upon his arrival to the emergency department he was diagnosed with atrial fibrillation with rapid ventricular response and placed on a diltiazem drip to control his heart rate. Patient progressed with cardiac arrest secondary to ventricular arrhythmias (ventricular tachycardia and torsades de Pointe) requiring CPR and ACLS maneuvers (three epinephrine, 300 mg of amiodarone and defibrillation x2) for 8 minutes with endotracheal intubation, obtaining ROSC. Patient initially was placed on amiodarone drip, but then was discontinued and indicated magnesium due to prolonged QT. Due to clinical status obtained history of present illness and past medical history from EMR and who is at bedside. Could not obtain review of systems. Cardiology consulted for elevated troponins. 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 Ex tobacco abuse (eight pack-year history of smoking) quit 30 years ago. Denies current tobacco, alcohol and other drug abuse Allergies: Denies Home medication: Pradaxa 150 mg p.o. daily, atorvastatin 40 mg p.o. daily, hydrochlorothiazide 12.5 mg p.o. daily, lisinopril 20 mg p.o. daily, glipizide, metformin a 1000 mg p.o. b.i.d., metoprolol (he quit taking for four months since it made him tired). Patient seen and examined at bedside. Currently under mechanical assisted ventilation, IV vasopressors on standby. Could not obtain review of systems due to clinical status. Avoid QT prolonging medication due to prolonged QTC, no episodes of V-tach, but if needed lidocaine can be given (avoid amiodarone). Patient presented sepsis with positive blood cultures (Staph coagulase negative, could be contaminate). Planning on performing LHC on Thursday07/05/2025, have informed ) Objective vital signs Vital Sign Date Time Temp Pulse Resp B/P (MAP) Pulse Ox O2 Delivery O2 Flow Rate FiO2 07/03/25 13:40 93 19 118/54 (75) 100 30 07/03/25 07:30 99.7 211.5 07/03/25 06:00 Mechanical Ventilator+ Total Intake and Output 07/02/25 07/02/25 07/03/25 15:00 23:00 07:00 Intake Total 155 ml 419.25 ml 754.50 ml Output Total 550 ml 500 ml Balance 155 ml -130.75 ml 254.50 ml medications Current Medications Medications Dose Ordered Sig/Jesse Route Start Time Stop Time Status Last Admin Dose Admin Atorvastatin Calcium 40 mg HS PO 06/29/25 22:00 07/02/25 21:32 40 MG Norepinephrine Bitartrate 250 ml @ 3.75 mls/hr Q24H IV 06/29/25 06:15 07/01/25 02:02 3.75 MLS/HR Fentanyl Citrate 250 ml @ 2.5 mls/hr Q24H IV 06/29/25 06:15 07/03/25 03:06 15 MLS/HR Aspirin 81 mg DAILY PO 06/30/25 10:00 07/03/25 11:01 81 MG Insulin Human Regular HS SC 06/29/25 22:00 Cancel Insulin Human Regular AC SC 06/29/25 17:00 Cancel Pantoprazole Sodium 40 mg DAILY IV 06/30/25 10:00 07/03/25 11:02 40 MG Clopidogrel Bisulfate 75 mg DAILY PO 06/30/25 10:00 07/03/25 11:01 75 MG Diagnostic Test (Pha) 1 strip IQ4HR 06/29/25 20:00 07/03/25 11:02 1 STRIP Insulin Human Regular IQ4HR SC 06/29/25 20:00 07/03/25 11:22 9 UNITS Dextrose 50 ml UD PRN IV 06/29/25 17:30 Midazolam HCl 100 ml @ 1 mls/hr Q24H IV 06/29/25 18:00 07/02/25 23:37 7 MLS/HR Enoxaparin Sodium 100 mg Q12HR SC 06/30/25 10:00 07/03/25 11:02 100 MG Enteral Nutritional Formula 1,000 ml 45ML/HR GT 06/30/25 17:15 07/01/25 07:29 1,000 ML Acetaminophen 650 mg Q4HP PRN PO 07/01/25 17:00 07/03/25 00:43 650 MG Vancomycin HCl 0 ml @ 0 mls/hr PER PHARMACY IV 07/02/25 13:15 Cefepime HCl 50 ml @ 12.5 mls/hr Q12HR IV 07/03/25 10:00 07/03/25 11:01 12.5 MLS/HR Vancomycin HCl 250 ml @ 250 mls/hr Q12H IV 07/03/25 15:00 Furosemide 20 mg BIDD IV 07/03/25 18:00 Examination Patient lying in bed, under sedoanalgesia due to mechanical ventilation General: RASS -3, afebrile, mucosae are moist Cardiovascular: Normal S1 and S2. Holosystolic murmur best heard in apex which radiates towards axilla intensity 4/6. No gallops or rubs Respiratory: Mechanically assisted ventilation, equal bilateral airway entree. Clear lung sounds on auscultation. Presented purulent-hematic secretion in aspiration Abdomen: Soft, nontender, no organomegaly, normal bowel sounds MSK/skin: Mobilization of limbs cannot be evaluated. Skin is dry and warm. Presents bilateral erythematous and ulcerated lesions. Neurological: Orientation cannot be assessed. No apparent motor no sensitive deficits. Pupils are isocoric and reactive laboratory and microbiology Laboratory Tests 07/03/25 09:40 Test 07/03/25 09:40 Range/Units Serum Glucose 275 H 74-106 mg/dL Microbiology Date/Time Source Procedure Growth Status 07/01/25 22:35 Urine - Catheterized Urine Culture - Preliminary Resulted 07/01/25 22:30 Sputum Gram Stain - Final Resulted 07/01/25 22:30 Sputum Respiratory Culture - Preliminary Resulted 07/01/25 18:15 Blood Blood Culture - Preliminary Resulted 06/29/25 04:30 Nose MRSA Screen - Final Complete Problem List/Assessment/Plan Problem List/Assessment/Plan Assessment Cardiac arrest secondary to ventricular arrhythmia (ventricular tachycardia and torsades de Pointe) - status post ROSC Acute respiratory failure NSTEMI type 1 - status post PCI with 4 STANLEY to circumflex Newly diagnosed coronary artery disease - triple-vessel disease Prolonged QT Paroxysmal atrial fibrillation with RVR (chads Vasc 7) - secondary hypercoagulability state Metabolic acidosis with elevated anion gap secondary to hyperlacticacidemia KEANU hemodynamically mediated (VMN) 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 Ventriculogram shows LVEF of 15%. Revascularized culprit vessel. Planning on completing staged PCI (can be completed in the center or in [place]). 07/01/25: HR 150- 160s, order was given of metoprolol IV 5 mg with partial control of the RVR, also digoxin loading dose given. Metoprolol 25 mg PO daily was also placed for tomorrow. Due to QT prolongation and previous torsades, we are cautious to use amiodarone. No episodes of Vtach but if is needed lidocaine can be given, also we are cautious to not be too aggressive due to the recent wean off the pressors. We still continue f/u for next week procedure Initially was on heparin drip, now on therapeutic enoxaparin for A-fib. Ordered echocardiogram: pending report Currently on mechanical assisted ventilation Avoid QT prolonging medication Replenish electrolytes. Goal magnesium above two and goal potassium above four. On insulin sliding scale Rest of management per primary team (on IV antibiotics) Goals of care discussed with (Myrna) for over 18 minutes: Full code status Discussed plan with Dr. Pierre, and nurses: Patient currently ICU status due to mechanical assisted ventilation and IV vasopressors on stand by. Completed coronary angiography which showed triple-vessel disease with acute circumflex occlusion status post PCI with 4 STANLEY placed. Revascularized culprit vessel, planning on staged PCI on Thursday07/05/2025. Optimize electrolytes, avoid QT prolonging medication. Patient has poor prognosis. Critical care time spent including discussion with nursing and family, excluding procedures: 73 minutes. Plan discussed with: Spouse, Other (Nurses) My Orders My Orders Orders - JOSELYN STEIN RESIDENT Procedure Category Date Status Time Blood Culture JONNY 07/03/25 In Process 08:38 Furosemide Injection PHA 07/03/25 In Process (Lasix Injection) 18:00 Dietary Evaluation Review Comments: 1. Protein needs based on 1.2-1.5g/protein/kg IBW d/t low GFR 2. While being intubated, offer TF Vital HP @45ml/hr, in 24 hr, Pt will receive 94g protein, 1080lkcal 903ml free water, meeting pts needs at 97% protein and 100% energy. 3. Consider TPN to meet pt's needs if Pt does not tolerate TF well. 4. Reassess when pt extubated, advance to CCHO-60 PO diet after passing a [employer] evluation. Expected Outcomes/Goals: off intubation, advance to CCHO-60 Cardiac diet, gradual wt loss Visit Coding Cardiology RES Date of Service: Jul 03, 2025 Billing Provider: PHILLIP PIERRE Sr., MD Cardiology Common Codes: 64626-[id number] HOSP CARE(High Cardiology Secondary Visit Cod: [id number] CARE PLAN 30 MINUTES JOSELYN STEIN RESIDENT Jul 03, 2025 13:58
[2025-07-03] MEDS: VANCOMYCIN 1GM/250ML KIT 250 ML IV SCH (16:31)
--- NOTE | 2025-07-03 17:47 | DVHPNRES ---
Progress Note Date Seen: Jul 03, 2025 Resident Creating Document: CYNTHIA LOVE RESIDENT Medical Necessity Reason Pt with a Central, PICC or Fol: Yes The following are medically ne: Central Line, Lau Catheter Reason for lau catheter: Strict I&O Subjective Review of Systems Patient is a 74-year-old male with past medical history of hypertension, diabetes type 2, dyslipidemia, paroxysmal atrial fibrillation, CVA in 2019, presented to the ED with chief complaints of 3 days of palpitations, shortness of breath before his admission. On arrival to the ED patient was found to have atrial fibrillation with RVR and was started on a diltiazem drip to control his heart rate. Patient progressed to have cardiac arrest secondary to ventricular arrhythmias possibly ventricular tachycardia or torsades de Pointe. Patient required CPR and ACLS maneuvers for 8 minutes followed by endotracheal intubation, obtained by ROSC. Patient was initially on amiodarone drip which was later discontinued after magnesium was given for QT prolongation. Due to clinical status obtained history of present illness and past medical history from EMR and who is at bedside. Could not obtain review of systems. Cardiology consulted for elevated troponins. Past medical history: Hypertension, dyslipidemia, diabetes, paroxysmal atrial fibrillation diagnosed in 2017 (chads Vasc 7), 2019 CVA Past surgical history: Appendectomy Family history: Two brothers had heart disease requiring CABG at the age of 40 and 50 respectively, brother had lung cancer, mother had breast cancer Social history: with . Ex tobacco abuse (eight pack-year history of smoking) quit 30 years ago. Denies current tobacco, alcohol and other drug abuse Allergies: Denies Home medication: Pradaxa 150 mg p.o. daily, atorvastatin 40 mg p.o. daily, hydrochlorothiazide 12.5 mg p.o. daily, lisinopril 20 mg p.o. daily, glipizide, metformin a 1000 mg p.o. b.i.d., metoprolol (he quit taking for four months since it made him tired). 06/30/25: Patient seen and examined at bedside. Patient is currently sedated and on mechanically ventilation, with ventilator settings at tidal volume 500, FiO2 30%, peep at 5, off of pressors phenylephrine and norepinephrine. 07/01/2025: Patient seen and examined at bedside. Patient is currently sedated and mechanically ventilated. Patient today has fever and elevated WBC, blood culture ordered. Patient is on pressor Levophed 9, patient's HR 150- 160s, order was given of metoprolol IV 5 mg with partial control of the RVR, also digoxin loading dose given. Metoprolol 25 mg PO daily was also placed for tomorrow. 07/02/2025: Patient seen and examined in ICU. Hr is under controlled. Intubated. temperature 99.3 started cefepime and vancomycin. blood culture G + bacteria. 07/03/2025 :Patient seen and examined in the ICU. Patient heart rate is under control, patient is intubated, mechanically ventilated, temperature 100.6. continue cefepime, vancomycin. Repeat blood cultures were ordered.(Staph coagulase negative, could be contaminate). Planning on performing LHC on Thursday07/05/2025, have informed . Objective vital signs Vital Sign Date Time Temp Pulse Resp B/P (MAP) Pulse Ox O2 Delivery O2 Flow Rate FiO2 07/03/25 17:31 77 07/03/25 17:31 18 100 Mechanical Ventilator+ 30 30 07/03/25 17:15 100.2 103/49 (67) 212.4 Total Intake and Output 07/02/25 07/02/25 07/03/25 15:00 23:00 07:00 Intake Total 155 ml 419.25 ml 754.50 ml Output Total 550 ml 500 ml Balance 155 ml -130.75 ml 254.50 ml medications Current Medications Medications Dose Ordered Sig/Jesse Route Start Time Stop Time Status Last Admin Dose Admin Atorvastatin Calcium 40 mg HS PO 06/29/25 22:00 07/02/25 21:32 40 MG Norepinephrine Bitartrate 250 ml @ 3.75 mls/hr Q24H IV 06/29/25 06:15 07/01/25 02:02 3.75 MLS/HR Fentanyl Citrate 250 ml @ 2.5 mls/hr Q24H IV 06/29/25 06:15 07/03/25 03:06 15 MLS/HR Aspirin 81 mg DAILY PO 06/30/25 10:00 07/03/25 11:01 81 MG Insulin Human Regular HS SC 06/29/25 22:00 Cancel Insulin Human Regular AC SC 06/29/25 17:00 Cancel Pantoprazole Sodium 40 mg DAILY IV 06/30/25 10:00 07/03/25 11:02 40 MG Clopidogrel Bisulfate 75 mg DAILY PO 06/30/25 10:00 07/03/25 11:01 75 MG Diagnostic Test (Pha) 1 strip IQ4HR 06/29/25 20:00 07/03/25 16:31 1 STRIP Insulin Human Regular IQ4HR SC 06/29/25 20:00 07/03/25 16:37 6 UNITS Dextrose 50 ml UD PRN IV 06/29/25 17:30 Midazolam HCl 100 ml @ 1 mls/hr Q24H IV 06/29/25 18:00 07/02/25 23:37 7 MLS/HR Enoxaparin Sodium 100 mg Q12HR SC 06/30/25 10:00 07/03/25 11:02 100 MG Enteral Nutritional Formula 1,000 ml 45ML/HR GT 06/30/25 17:15 07/01/25 07:29 1,000 ML Acetaminophen 650 mg Q4HP PRN PO 07/01/25 17:00 07/03/25 00:43 650 MG Vancomycin HCl 0 ml @ 0 mls/hr PER PHARMACY IV 07/02/25 13:15 Cefepime HCl 50 ml @ 12.5 mls/hr Q12HR IV 07/03/25 10:00 07/03/25 11:01 12.5 MLS/HR Vancomycin HCl 250 ml @ 250 mls/hr Q12H IV 07/03/25 15:00 07/03/25 16:31 250 MLS/HR Furosemide 20 mg BIDD IV 07/03/25 18:00 Examination Patient lying in bed, is mechanically intubated and sedated HEENT: Normocephalic, atraumatic, moist mucous membranes Respiratory/pulmonary: Clear lungs bilaterally, vesicular murmurs present in almost all lung roberts, no associated crackles or wheezes. Cardiovascular: Normal heart sounds S1 and S2 with no associated murmurs Abdomen: Abdomen nondistended, there is no pain to palpation in any of the abdominal quadrants, no palpable masses. Extremities: There is no peripheral edema present at the lower extremities. Bilateral erythematous and ulcerated lesions. Skin: No rashes or pruritus, there is no sacral edema present at this time. laboratory and microbiology Laboratory Tests 07/03/25 09:40 Test 07/03/25 09:40 Range/Units Serum Glucose 275 H 74-106 mg/dL Microbiology Date/Time Source Procedure Growth Status 07/01/25 22:35 Urine - Catheterized Urine Culture - Preliminary Resulted 07/01/25 22:30 Sputum Gram Stain - Final Resulted 07/01/25 22:30 Sputum Respiratory Culture - Preliminary Resulted 07/01/25 18:15 Blood Blood Culture - Preliminary Resulted 06/29/25 04:30 Nose MRSA Screen - Final Complete Problem List/Assessment/Plan Problem List/Assessment/Plan Neurology Acute metabolic encephalopathy History of CVA-with residual aphasia, right-sided deficit -Sedation/neurological status: Rass score -3 - off of Levophed, phenylephrine Cardiology Cardiac arrest secondary to ventricular arrhythmia (ventricular tachycardia, torsade de pointes) NSTEMI type 1 status post PCI Newly diagnosed coronary artery disease - triple-vessel disease Prolonged QT Paroxysmal atrial fibrillation with RVR Hypertension Dyslipidemia - EKG showed atrial fibrillation with anterior T-wave inversions, prolonged QT - coronary angiography showed severe triple-vessel disease with acutely occluded circumflex status post PCI with 1 drug-eluting stent placed. -ventriculogram showed LVEF of 15% - ordered echocardiography, lvef 20%, moderate LV enlargement, severe end stage HF - avoid QT prolongation medications - Dany Vasc score 7 -currently on vasopressors Levophed, phenylephrine -severe CAD in LAD and RCA, plan to do angiography on Thursday -patient given aspirin, atorvastatin, clopidogrel - planning on left heart catheterization on Thursday Respiratory acute hypoxic respiratory failure likely due to cardiac arrest Possible Aspiration Pneumonia -ventilator settings: VT 500, respiratory rate 17, FiO2 30 %, PEEP 5 -chest x-ray: Similar bilateral inferior graded opacities, likely a combination of airspace disease and pleural effusion. Genitourinary/kidney Acute kidney injury likely due to be VMN -medication: Given Lasix 20 mg once -strict I&Os -nephrotoxic drugs Endocrine Uncontrolled diabetes mellitus, HbA1c 10.6 - on insulin sliding scale Infectious -urine culture preliminary negative -blood cultures ordered, as WBC elevated and fever present -blood culture showed positive staph coagulase negative. - repeat blood cultures ordered -started on vancomycin, cefepime Transaminitis - monitor labs Obesity BMI 33.0 Lines / Tubes / Devices Airway: Intubated via ETT on 06/29 Vascular Access: Central line 06/29 Drips: Fentanyl, midazolam, norepinephrine, phenylephrine, Versed Prophylaxis / Supportive Care DVT Prophylaxis: Lovenox. GI Prophylaxis: Protonix. Goals of care discussed with the patient family for more than 29 minutes: Full code state Patient care updated to (Myrna), addressed all concerns. Critical care time spent excluding procedures 84 minutes Plan discussed with Dr. Waters and RN Plan discussed with: Spouse, Other My Orders My Orders Orders - CYNTHIA LOVE Procedure Category Date Status Time Abg W/ Co-Ox RT 07/03/25 Logged 06:00 Dietary Evaluation Review Comments: 1. Protein needs based on 1.2-1.5g/protein/kg IBW d/t low GFR 2. While being intubated, offer TF Vital HP @45ml/hr, in 24 hr, Pt will receive 94g protein, 1080lkcal 903ml free water, meeting pts needs at 97% protein and 100% energy. 3. Consider TPN to meet pt's needs if Pt does not tolerate TF well. 4. Reassess when pt extubated, advance to CCHO-60 PO diet after passing a FERRULER evluation. Expected Outcomes/Goals: off intubation, advance to CCHO-60 Cardiac diet, gradual wt loss Date of Service: Jul 03, 2025 Billing Provider: YOBANY AGUIRRE MD Common Visit Codes: 27954-[id number] CARE 30-74 MIN, [id number] CARE-EACH +30MIN CYNTHIA LOVE Jul 03, 2025 17:47 YOBANY AGUIRRE MD Jul 04, 2025 15:38
[2025-07-03] MEDS: POLYETHYLENE GLYCOL 17 GM PWDR PO ONE (17:58)
[2025-07-03] MEDS: FUROSEMIDE 20 MG/2 ML VIAL IV SCH (17:58)
[2025-07-04] VITALS (111 sets, daily range): BP systolic 88–132; BP diastolic 29–71; PULSE 81–126; RESP 12–31; TEMP 98.1–100; O2SAT 95–100
--- NOTE | 2025-07-04 03:38 | DVH ---
CHEST RADIOGRAPH Indication: on vent Technique: Single frontal view of the chest was obtained COMPARISON: XY CHEST PORTABLE on DOS: 07/03/25, XY CHEST XRAY 1 VIEW on DOS: 07/02/25, XY CHEST XRAY 1 VIEW on DOS: 07/01/25, XY CHEST PORTABLE on DOS: 06/30/25, XY CHEST XRAY 1 VIEW on DOS: 06/29/25 FINDINGS: Lines and Tubes: Unchanged. Lungs: Stable appearing bilateral pleural effusions and bibasilar pulmonary airspace disease. No pneumothorax. Cardiomediastinal contours: Cardiomegaly. Bones: Unremarkable IMPRESSION: 1. Stable appearing bilateral pleural effusions and bibasilar pulmonary airspace disease. 2. Lines and tubes unchanged.
[2025-07-04 03:48] LABS: Hematocrit 33.5 % (41.0-53.0); Hemoglobin 11.3 g/dL (13.5-17.5); Mean Corpuscular Hemoglobin 27.7 pg (28.0-32.0); Mean Corpuscular Volume 82.2 fL (80.0-100.0); Nucleated Red Blood Cells % 0.0 %
[2025-07-04 04:01] LABS: Alanine Aminotransferase 39 U/L (7-40); Alkaline Phosphatase 112 U/L (46-116); Anion Gap 10 (5-15); BUN/Creatinine Ratio 41.3 (10.0-20.0); Bilirubin, Total 0.8 mg/dL (0.2-1.0); Carbon Dioxide 28 mmol/L (20-31); Chloride 106 mmol/L (98-107); Magnesium 1.9 mg/dL (1.6-2.6); Potassium 4.0 mmol/L (3.5-5.1); Sodium 144 mmol/L (136-145)
[2025-07-04 04:10] LABS: Albumin 2.8 g/dL (3.2-4.8); Blood Urea Nitrogen 38 mg/dL (9-23); Calcium 7.7 mg/dL (8.7-10.4); Glucose 176 mg/dL (74-106); Total Protein 5.4 g/dL (5.7-8.2)
[2025-07-04 06:55] LABS: Base Excess 1.9 mmol/L (-2.0-3.0)
--- NOTE | 2025-07-04 08:50 | DVHPNRES ---
Progress Note Date Seen: Jul 04, 2025 Resident Creating Document: JOSELYN STEIN RESIDENT Medical Necessity Reason Pt with a Central, PICC or Fol: Yes The following are medically ne: Central Line, Lau Catheter Reason for lau catheter: Strict I&O Subjective Review of Systems Hardy Almanza is a 74-year-old male patient who presents to ED with chief complaint of palpitation three days before his admission. Upon his arrival to the emergency department he was diagnosed with atrial fibrillation with rapid ventricular response and placed on a diltiazem drip to control his heart rate. Patient progressed with cardiac arrest secondary to ventricular arrhythmias (ventricular tachycardia and torsades de Pointe) requiring CPR and ACLS maneuvers (three epinephrine, 300 mg of amiodarone and defibrillation x2) for 8 minutes with endotracheal intubation, obtaining ROSC. Patient initially was placed on amiodarone drip, but then was discontinued and indicated magnesium due to prolonged QT. Due to clinical status obtained history of present illness and past medical history from EMR and who is at bedside. Could not obtain review of systems. Cardiology consulted for elevated troponins. 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 Ex tobacco abuse (eight pack-year history of smoking) quit 30 years ago. Denies current tobacco, alcohol and other drug abuse Allergies: Denies Home medication: Pradaxa 150 mg p.o. daily, atorvastatin 40 mg p.o. daily, hydrochlorothiazide 12.5 mg p.o. daily, lisinopril 20 mg p.o. daily, glipizide, metformin a 1000 mg p.o. b.i.d., metoprolol (he quit taking for four months since it made him tired). Patient seen and examined at bedside. Currently under mechanical assisted ventilation, IV vasopressors on standby. Could not obtain review of systems due to clinical status. Avoid QT prolonging medication due to prolonged QTC, no episodes of V-tach, but if needed lidocaine can be given (avoid amiodarone). Patient presented sepsis with positive blood cultures (Staph coagulase negative, could be contaminate). Planning on performing LHC on Thursday07/05/2025 (have informed ). Objective vital signs Vital Sign Date Time Temp Pulse Resp B/P (MAP) Pulse Ox O2 Delivery O2 Flow Rate FiO2 07/04/25 06:45 98.8 98 20 112/57 (75) 100 209.8 07/04/25 06:20 30 07/04/25 06:00 Mechanical Ventilator+ Total Intake and Output 07/03/25 07/03/25 07/04/25 15:00 23:00 07:00 Intake Total 174.5 ml 761.0 ml 438.5 ml Output Total 1050 ml 800 ml Balance 174.5 ml -289.0 ml -361.5 ml medications Current Medications Medications Dose Ordered Sig/Ejsse Route Start Time Stop Time Status Last Admin Dose Admin Atorvastatin Calcium 40 mg HS PO 06/29/25 22:00 07/03/25 20:55 40 MG Norepinephrine Bitartrate 250 ml @ 3.75 mls/hr Q24H IV 06/29/25 06:15 07/01/25 02:02 3.75 MLS/HR Fentanyl Citrate 250 ml @ 2.5 mls/hr Q24H IV 06/29/25 06:15 07/03/25 20:57 15 MLS/HR Aspirin 81 mg DAILY PO 06/30/25 10:00 07/03/25 11:01 81 MG Insulin Human Regular HS SC 06/29/25 22:00 Cancel Insulin Human Regular AC SC 06/29/25 17:00 Cancel Pantoprazole Sodium 40 mg DAILY IV 06/30/25 10:00 07/03/25 11:02 40 MG Clopidogrel Bisulfate 75 mg DAILY PO 06/30/25 10:00 07/03/25 11:01 75 MG Diagnostic Test (Pha) 1 strip IQ4HR 06/29/25 20:00 07/04/25 07:59 1 STRIP Insulin Human Regular IQ4HR SC 06/29/25 20:00 07/04/25 04:03 3 UNITS Dextrose 50 ml UD PRN IV 06/29/25 17:30 Midazolam HCl 100 ml @ 1 mls/hr Q24H IV 06/29/25 18:00 07/04/25 02:31 7 MLS/HR Enoxaparin Sodium 100 mg Q12HR SC 06/30/25 10:00 07/03/25 20:55 100 MG Enteral Nutritional Formula 1,000 ml 45ML/HR GT 06/30/25 17:15 07/01/25 07:29 1,000 ML Acetaminophen 650 mg Q4HP PRN PO 07/01/25 17:00 07/03/25 00:43 650 MG Vancomycin HCl 0 ml @ 0 mls/hr PER PHARMACY IV 07/02/25 13:15 Cefepime HCl 50 ml @ 12.5 mls/hr Q12HR IV 07/03/25 10:00 07/03/25 20:56 12.5 MLS/HR Vancomycin HCl 250 ml @ 250 mls/hr Q12H IV 07/03/25 15:00 07/04/25 02:30 250 MLS/HR Furosemide 20 mg BIDD IV 07/03/25 18:00 07/04/25 05:56 20 MG Examination Patient lying in bed, under sedoanalgesia due to mechanical ventilation General: RASS -3, afebrile, mucosae are moist Cardiovascular: Normal S1 and S2. Holosystolic murmur best heard in apex which radiates towards axilla intensity 4/6. No gallops or rubs Respiratory: Mechanically assisted ventilation, equal bilateral airway entree. Clear lung sounds on auscultation. Presented purulent-hematic secretion in aspiration Abdomen: Soft, nontender, no organomegaly, normal bowel sounds MSK/skin: Mobilization of limbs cannot be evaluated. Skin is dry and warm. Presents bilateral erythematous and ulcerated lesions. Neurological: Orientation cannot be assessed. No apparent motor no sensitive deficits. Pupils are isocoric and reactive laboratory and microbiology Laboratory Tests 07/04/25 03:07 Test 07/04/25 03:07 Range/Units Serum Glucose 176 H 74-106 mg/dL Microbiology Date/Time Source Procedure Growth Status 07/01/25 22:35 Urine - Catheterized Urine Culture - Preliminary Resulted 07/01/25 22:30 Sputum Gram Stain - Final Resulted 07/01/25 22:30 Sputum Respiratory Culture - Preliminary Resulted 07/01/25 18:15 Blood Blood Culture - Preliminary Resulted 06/29/25 04:30 Nose MRSA Screen - Final Complete Problem List/Assessment/Plan Problem List/Assessment/Plan Assessment Cardiac arrest secondary to ventricular arrhythmia (ventricular tachycardia and torsades de Pointe) - status post ROSC Acute respiratory failure NSTEMI type 1 - status post PCI with 4 STANLEY to circumflex Newly diagnosed coronary artery disease - triple-vessel disease Prolonged QT Paroxysmal atrial fibrillation with RVR (chads Vasc 7) - secondary hypercoagulability state Metabolic acidosis with elevated anion gap secondary to hyperlacticacidemia KEANU hemodynamically mediated (VMN) 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 Ventriculogram shows LVEF of 15%. Revascularized culprit vessel. Planning on completing staged PCI (can be completed in the center or in [place]). 07/01/25: HR 150- 160s, order was given of metoprolol IV 5 mg with partial control of the RVR, also digoxin loading dose given. Metoprolol 25 mg PO daily was also placed for tomorrow. Due to QT prolongation and previous torsades, we are cautious to use amiodarone. No episodes of Vtach but if is needed lidocaine can be given, also we are cautious to not be too aggressive due to the recent wean off the pressors. We still continue f/u for next week procedure Initially was on heparin drip, now on therapeutic enoxaparin for A-fib. Echocardiogram: LVEF 20%, moderate LV enlargement, severe end stage HF, RV dysfunction, moderate MAC, mild MR and TR, moderate pulmonary HTN Currently on mechanical assisted ventilation Avoid QT prolonging medication Replenish electrolytes. Goal magnesium above two and goal potassium above four. On insulin sliding scale Rest of management per primary team (on IV antibiotics) Goals of care discussed with (Myrna) for over 18 minutes: Full code status Discussed plan with Dr. Pierre, and nurses: Patient currently ICU status due to mechanical assisted ventilation and IV vasopressors on stand by. Completed coronary angiography which showed triple-vessel disease with acute circumflex occlusion status post PCI with 4 STANLEY placed. Revascularized culprit vessel, planning on staged PCI on Thursday07/05/2025. Optimize electrolytes, avoid QT prolonging medication. Patient has poor prognosis. Critical care time spent including discussion with nursing and family, excluding procedures: 63 minutes. Plan discussed with: Spouse, Other (Nurses) My Orders My Orders Orders - JOSELYN STEIN Procedure Category Date Status Time Furosemide Injection PHA 07/03/25 In Process (Lasix Injection) 18:00 Chest Ultrasound US 07/04/25 Transmitted 08:46 Dietary Evaluation Review Comments: 1. Protein needs based on 1.2-1.5g/protein/kg IBW d/t low GFR 2. While being intubated, offer TF Vital HP @45ml/hr, in 24 hr, Pt will receive 94g protein, 1080lkcal 903ml free water, meeting pts needs at 97% protein and 100% energy. 3. Consider TPN to meet pt's needs if Pt does not tolerate TF well. 4. Reassess when pt extubated, advance to CCHO-60 PO diet after passing a CLINICAL PROJECT COORDINATOR evluation. Expected Outcomes/Goals: off intubation, advance to CCHO-60 Cardiac diet, gradual wt loss Visit Coding Cardiology RES Date of Service: Jul 04, 2025 Billing Provider: PHILLIP PIERRE Sr., MD Cardiology Common Codes: [id number] HOSP CARE(High Cardiology Secondary Visit Cod: [id number] CARE PLAN 30 MINUTES JOSELYN STEIN RESIDENT Jul 04, 2025 08:50
[2025-07-04] MEDS: MAGNESIUM SULFATE 1GM/100ML 100 ML IV ONE (10:48)
--- NOTE | 2025-07-04 11:30 | DVH ---
Exam: US CHEST ULTRASOUND Clinical History: Pleural effussion Comparison: XY CHEST XRAY 1 VIEW on DOS: 07/04/25, XY CHEST PORTABLE on DOS: 07/03/25, XY CHEST XRAY 1 VIEW on DOS: 07/02/25, XY CHEST XRAY 1 VIEW on DOS: 07/01/25, XY CHEST PORTABLE on DOS: 06/30/25 Technique: Targeted sonographic evaluation of the soft tissues of the bilateral chest was obtained utilizing gr ayscale and color Doppler imaging. Findings/Impression: Trace right pleural effusion. No left pleural effusion.
--- NOTE | 2025-07-04 17:39 | DVHPNRES ---
Progress Note Date Seen: Jul 04, 2025 Resident Creating Document: CYNTHIA LOVE RESIDENT Medical Necessity Reason Pt with a Central, PICC or Fol: Yes The following are medically ne: Central Line, Lau Catheter Reason for lau catheter: Strict I&O Subjective Review of Systems Patient is a 74-year-old male with past medical history of hypertension, diabetes type 2, dyslipidemia, paroxysmal atrial fibrillation, CVA in 2019, presented to the ED with chief complaints of 3 days of palpitations, shortness of breath before his admission. On arrival to the ED patient was found to have atrial fibrillation with RVR and was started on a diltiazem drip to control his heart rate. Patient progressed to have cardiac arrest secondary to ventricular arrhythmias possibly ventricular tachycardia or torsades de Pointe. Patient required CPR and ACLS maneuvers for 8 minutes followed by endotracheal intubation, obtained by ROSC. Patient was initially on amiodarone drip which was later discontinued after magnesium was given for QT prolongation. Due to clinical status obtained history of present illness and past medical history from EMR and who is at bedside. Could not obtain review of systems. Cardiology consulted for elevated troponins. Past medical history: Hypertension, dyslipidemia, diabetes, paroxysmal atrial fibrillation diagnosed in 2017 (chads Vasc 7), 2019 CVA Past surgical history: Appendectomy Family history: Two brothers had heart disease requiring CABG at the age of 40 and 50 respectively, brother had lung cancer, mother had breast cancer Social history: with . Ex tobacco abuse (eight pack-year history of smoking) quit 30 years ago. Denies current tobacco, alcohol and other drug abuse Allergies: Denies Home medication: Pradaxa 150 mg p.o. daily, atorvastatin 40 mg p.o. daily, hydrochlorothiazide 12.5 mg p.o. daily, lisinopril 20 mg p.o. daily, glipizide, metformin a 1000 mg p.o. b.i.d., metoprolol (he quit taking for four months since it made him tired). 06/30/25: Patient seen and examined at bedside. Patient is currently sedated and on mechanically ventilation, with ventilator settings at tidal volume 500, FiO2 30%, peep at 5, off of pressors phenylephrine and norepinephrine. 07/01/2025: Patient seen and examined at bedside. Patient is currently sedated and mechanically ventilated. Patient today has fever and elevated WBC, blood culture ordered. Patient is on pressor Levophed 9, patient's HR 150- 160s, order was given of metoprolol IV 5 mg with partial control of the RVR, also digoxin loading dose given. Metoprolol 25 mg PO daily was also placed for tomorrow. 07/02/2025: Patient seen and examined in ICU. Hr is under controlled. Intubated. temperature 99.3 started cefepime and vancomycin. blood culture G + bacteria. 07/03/2025 :Patient seen and examined in the ICU. Patient heart rate is under control, patient is intubated, mechanically ventilated, temperature 100.6. continue cefepime, vancomycin. Repeat blood cultures were ordered.(Staph coagulase negative, could be contaminate). Planning on performing LHC on Thursday07/05/2025, have informed . 07/04/2025: Patient seen and examined in ICU. Patient is mechanically intubated, patient had a fever yesterday night but decreased. Sputum culture showed Gram-negative rods. Discontinued cefepime. Started meropenem, 12.5 metoprolol b.i.d. Repeat blood cultures are negative. Planning on performing LHC on Thursday07/05/2025, have informed . Objective vital signs Vital Sign Date Time Temp Pulse Resp B/P (MAP) Pulse Ox O2 Delivery O2 Flow Rate FiO2 07/04/25 17:15 98.8 101 18 108/55 (72) 99 209.8 07/04/25 16:10 30 07/04/25 16:00 Mechanical Ventilator+ Total Intake and Output 07/03/25 07/03/25 07/04/25 15:00 23:00 07:00 Intake Total 174.5 ml 761.0 ml 438.5 ml Output Total 1050 ml 800 ml Balance 174.5 ml -289.0 ml -361.5 ml medications Current Medications Medications Dose Ordered Sig/Jesse Route Start Time Stop Time Status Last Admin Dose Admin Atorvastatin Calcium 40 mg HS PO 06/29/25 22:00 07/03/25 20:55 40 MG Norepinephrine Bitartrate 250 ml @ 3.75 mls/hr Q24H IV 06/29/25 06:15 07/01/25 02:02 3.75 MLS/HR Fentanyl Citrate 250 ml @ 2.5 mls/hr Q24H IV 06/29/25 06:15 07/04/25 10:51 15 MLS/HR Aspirin 81 mg DAILY PO 06/30/25 10:00 07/04/25 10:47 81 MG Insulin Human Regular HS SC 06/29/25 22:00 Cancel Insulin Human Regular AC SC 06/29/25 17:00 Cancel Pantoprazole Sodium 40 mg DAILY IV 06/30/25 10:00 07/04/25 10:47 40 MG Clopidogrel Bisulfate 75 mg DAILY PO 06/30/25 10:00 07/04/25 10:47 75 MG Diagnostic Test (Pha) 1 strip IQ4HR 06/29/25 20:00 07/04/25 15:40 1 STRIP Insulin Human Regular IQ4HR SC 06/29/25 20:00 07/04/25 16:30 6 UNITS Dextrose 50 ml UD PRN IV 06/29/25 17:30 Midazolam HCl 100 ml @ 1 mls/hr Q24H IV 06/29/25 18:00 07/04/25 10:48 7 MLS/HR Enoxaparin Sodium 100 mg Q12HR SC 06/30/25 10:00 07/04/25 10:49 100 MG Enteral Nutritional Formula 1,000 ml 45ML/HR GT 06/30/25 17:15 07/01/25 07:29 1,000 ML Acetaminophen 650 mg Q4HP PRN PO 07/01/25 17:00 07/03/25 00:43 650 MG Vancomycin HCl 0 ml @ 0 mls/hr PER PHARMACY IV 07/02/25 13:15 Cefepime HCl 50 ml @ 12.5 mls/hr Q12HR IV 07/03/25 10:00 07/04/25 10:48 12.5 MLS/HR Vancomycin HCl 250 ml @ 250 mls/hr Q12H IV 07/03/25 15:00 07/04/25 15:24 250 MLS/HR Furosemide 20 mg BIDD IV 07/03/25 18:00 07/04/25 05:56 20 MG Examination Patient lying in bed, is mechanically intubated and sedated HEENT: Normocephalic, atraumatic, moist mucous membranes Respiratory/pulmonary: Clear lungs bilaterally, vesicular murmurs present in almost all lung roberts, no associated crackles or wheezes. Cardiovascular: Normal heart sounds S1 and S2 with no associated murmurs Abdomen: Abdomen nondistended, there is no pain to palpation in any of the abdominal quadrants, no palpable masses. Extremities: There is no peripheral edema present at the lower extremities. Bilateral erythematous and ulcerated lesions. Skin: No rashes or pruritus, there is no sacral edema present at this time. laboratory and microbiology Laboratory Tests 07/04/25 03:07 Test 07/04/25 03:07 Range/Units Serum Glucose 176 H 74-106 mg/dL Microbiology Date/Time Source Procedure Growth Status 07/03/25 16:00 Sputum Gram Stain - Final Resulted 07/03/25 16:00 Sputum Respiratory Culture - Preliminary Resulted 07/03/25 09:40 Blood Blood Culture - Preliminary NO GROWTH AFTER 24 HOURS OF INCUBATION. Resulted 07/01/25 22:35 Urine - Catheterized Urine Culture - Final Complete 06/29/25 04:30 Nose MRSA Screen - Final Complete Problem List/Assessment/Plan Problem List/Assessment/Plan Neurology Acute metabolic encephalopathy History of CVA-with residual aphasia, right-sided deficit -Sedation/neurological status: Rass score -3 - off of Levophed, phenylephrine Cardiology Cardiac arrest secondary to ventricular arrhythmia (ventricular tachycardia, torsade de pointes) NSTEMI type 1 status post PCI Newly diagnosed coronary artery disease - triple-vessel disease Prolonged QT Paroxysmal atrial fibrillation with RVR Hypertension Dyslipidemia - EKG showed atrial fibrillation with anterior T-wave inversions, prolonged QT - coronary angiography showed severe triple-vessel disease with acutely occluded circumflex status post PCI with 1 drug-eluting stent placed. -ventriculogram showed LVEF of 15% - ordered echocardiography, lvef 20%, moderate LV enlargement, severe end stage HF - avoid QT prolongation medications - Dany Vasc score 7 -currently on vasopressors Levophed, phenylephrine -severe CAD in LAD and RCA, plan to do angiography on Thursday -patient given aspirin, atorvastatin, clopidogrel - ordered 12.5 metoprolol tartrate b.i.d. - planning on left heart catheterization on Thursday Respiratory acute hypoxic respiratory failure likely due to cardiac arrest Possible Aspiration Pneumonia -ventilator settings: VT 500, respiratory rate 17, FiO2 30 %, PEEP 5 -chest x-ray: Similar bilateral inferior graded opacities, likely a combination of airspace disease and pleural effusion. Genitourinary/kidney Acute kidney injury likely due to be VMN -medication: Given Lasix 20 mg once -strict I&Os -nephrotoxic drugs Endocrine Uncontrolled diabetes mellitus, HbA1c 10.6 - on insulin sliding scale Infectious -urine culture preliminary negative -blood cultures ordered, as WBC elevated and fever present -blood culture showed positive staph coagulase negative. - repeat blood cultures negative -culture showed Gram-negative rods - IV vancomycin, meropenem started(07/04) Transaminitis - monitor labs Obesity BMI 33.0 Lines / Tubes / Devices Airway: Intubated via ETT on 06/29 Vascular Access: Central line 06/29 Drips: Fentanyl, midazolam, norepinephrine, phenylephrine, Versed Prophylaxis / Supportive Care DVT Prophylaxis: Lovenox. GI Prophylaxis: Protonix. Goals of care discussed with the patient family for more than 29 minutes: Full code state Patient care updated to (Myrna), addressed all concerns. Critical care time spent excluding procedures 85 minutes Plan discussed with Dr. Waters and RN Plan discussed with: Spouse, Other (RN) My Orders My Orders Orders - CYNTHIA LOVE RESIDENT Procedure Category Date Status Time Chest Xray 1 View XY 07/04/25 Resulted 04:00 Abg W/ Co-Ox RT 07/04/25 Logged 05:23 Meropenem 1gm Q12hr PHA 07/04/25 Transmitted ([id number]) 22:00 Metoprolol Tartrate PHA 07/04/25 Transmitted Tablet (Lopressor Ta 22:00 Dietary Evaluation Review Comments: 1. Protein needs based on 1.2-1.5g/protein/kg IBW d/t low GFR 2. While being intubated, offer TF Vital HP @45ml/hr, in 24 hr, Pt will receive 94g protein, 1080lkcal 903ml free water, meeting pts needs at 97% protein and 100% energy. 3. Consider TPN to meet pt's needs if Pt does not tolerate TF well. 4. Reassess when pt extubated, advance to CCHO-60 PO diet after passing a H[employer]EL[employer] SECURITY PROGRAM SPECIALIST evluation. Expected Outcomes/Goals: off intubation, advance to CCHO-60 Cardiac diet, gradual wt loss Date of Service: Jul 04, 2025 Billing Provider: YOBANY AGUIRRE MD Common Visit Codes: [id number] CARE 30-74 MIN, [id number] CARE-EACH +30MIN CYNTHIA LOVE RESIDENT Jul 04, 2025 17:39 YOBANY AGUIRRE MD Jul 05, 2025 14:01
[2025-07-04] MEDS: MEROPENEM 1GM IVPB 50 ML IV SCH (22:28)
[2025-07-04] MEDS: METOPROLOL TARTRATE 25 MG TAB GT SCH (22:29)
[2025-07-05] VITALS (91 sets, daily range): BP systolic 79–162; BP diastolic 41–81; PULSE 64–106; RESP 13–26; TEMP 96.4–99.3; O2SAT 93–100
[2025-07-05 04:22] LABS: Hematocrit 30.2 % (41.0-53.0); Hemoglobin 10.1 g/dL (13.5-17.5); Mean Corpuscular Hemoglobin 27.7 pg (28.0-32.0); Mean Corpuscular Volume 82.7 fL (80.0-100.0); Nucleated Red Blood Cells % 0.2 %
[2025-07-05 04:38] LABS: INR 1.26 (0.9-1.15); Partial Thromboplastin Time 40.2 SEC (24.5-34.5); Prothrombin Time 13.1 sec (9.3-11.8)
[2025-07-05 04:41] LABS: Alanine Aminotransferase 37 U/L (7-40); Anion Gap 7 (5-15); BUN/Creatinine Ratio 46.2 (10.0-20.0); Carbon Dioxide 29 mmol/L (20-31); Chloride 106 mmol/L (98-107); Magnesium 2.2 mg/dL (1.6-2.6); Potassium 4.0 mmol/L (3.5-5.1); Sodium 142 mmol/L (136-145)
[2025-07-05 04:42] LABS: Bilirubin, Total 0.7 mg/dL (0.2-1.0)
[2025-07-05 04:44] LABS: Albumin 2.6 g/dL (3.2-4.8); Alkaline Phosphatase 139 U/L (46-116); Blood Urea Nitrogen 42 mg/dL (9-23); Calcium 7.7 mg/dL (8.7-10.4); Glucose 265 mg/dL (74-106); Total Protein 5.1 g/dL (5.7-8.2)
--- NOTE | 2025-07-05 04:58 | DVH ---
CHEST RADIOGRAPH Indication: on vent Technique: Single frontal view of the chest was obtained Comparison: XY CHEST XRAY 1 VIEW on DOS: 07/04/25 FINDINGS: Lines and Tubes: There is a right central venous catheter with its tip terminating in the superior ve na cava. The enteric tube courses below the left hemidiaphragm and the tip extends outside the field of view. The endotracheal tube terminates 3.0 cm above the kolby. Lungs: Patchy bibasilar airspace disease. Pleura: No effusion. No pneumothorax. Cardiomediastinal contours: Cardiomegaly. Bones: No acute osseous abnormality. IMPRESSION: 1. Appropriate position of the support lines and tubes. 2. Bibasilar airspace disease and bilateral pleural effusions.
[2025-07-05 06:57] LABS: Base Excess 3.2 mmol/L (-2.0-3.0)
[2025-07-05] MEDS: IODIXANOL 320MG/ML 100ML BTL IV ONE ×2 (08:33→12:44)
--- NOTE | 2025-07-05 09:54 | DVHPNRES ---
Progress Note Date Seen: Jul 05, 2025 Resident Creating Document: JOSELYN STEIN RESIDENT Medical Necessity Reason Pt with a Central, PICC or Fol: Yes The following are medically ne: Central Line, Lau Catheter Reason for lau catheter: Strict I&O Subjective Review of Systems Hardy Almanza is a 74-year-old male patient who presents to ED with chief complaint of palpitation three days before his admission. Upon his arrival to the emergency department he was diagnosed with atrial fibrillation with rapid ventricular response and placed on a diltiazem drip to control his heart rate. Patient progressed with cardiac arrest secondary to ventricular arrhythmias (ventricular tachycardia and torsades de Pointe) requiring CPR and ACLS maneuvers (three epinephrine, 300 mg of amiodarone and defibrillation x2) for 8 minutes with endotracheal intubation, obtaining ROSC. Patient initially was placed on amiodarone drip, but then was discontinued and indicated magnesium due to prolonged QT. Due to clinical status obtained history of present illness and past medical history from EMR and who is at bedside. Could not obtain review of systems. Cardiology consulted for elevated troponins. 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 Ex tobacco abuse (eight pack-year history of smoking) quit 30 years ago. Denies current tobacco, alcohol and other drug abuse Allergies: Denies Home medication: Pradaxa 150 mg p.o. daily, atorvastatin 40 mg p.o. daily, hydrochlorothiazide 12.5 mg p.o. daily, lisinopril 20 mg p.o. daily, glipizide, metformin a 1000 mg p.o. b.i.d., metoprolol (he quit taking for four months since it made him tired). Patient seen and examined at bedside. Currently under mechanical assisted ventilation, on low-dose IV vasopressors. Completed stage procedure to LAD with 3 STANLEY placed (2 mid and 1 proximal). Continue with triple therapy at this point. We will recommend repeat echocardiogram end-stage procedure to RCA in one week. Objective vital signs Vital Sign Date Time Temp Pulse Resp B/P (MAP) Pulse Ox O2 Delivery O2 Flow Rate FiO2 07/05/25 07:05 82/52 07/05/25 06:45 96.4 71 18 99 205.5 07/05/25 06:10 30 07/05/25 06:00 Mechanical Ventilator+ Total Intake and Output 07/04/25 07/04/25 07/05/25 15:00 23:00 07:00 Intake Total 190.0 ml 749.0 ml 636 ml Output Total 700 ml 725 ml Balance 190.0 ml 49.0 ml -89 ml medications Current Medications Medications Dose Ordered Sig/Jesse Route Start Time Stop Time Status Last Admin Dose Admin Atorvastatin Calcium 40 mg HS PO 06/29/25 22:00 07/04/25 22:29 40 MG Norepinephrine Bitartrate 250 ml @ 3.75 mls/hr Q24H IV 06/29/25 06:15 07/05/25 06:45 3.75 MLS/HR Fentanyl Citrate 250 ml @ 2.5 mls/hr Q24H IV 06/29/25 06:15 07/05/25 00:55 15 MLS/HR Aspirin 81 mg DAILY PO 06/30/25 10:00 07/05/25 09:13 81 MG Insulin Human Regular HS SC 06/29/25 22:00 Cancel Insulin Human Regular AC SC 06/29/25 17:00 Cancel Pantoprazole Sodium 40 mg DAILY IV 06/30/25 10:00 07/05/25 09:13 40 MG Clopidogrel Bisulfate 75 mg DAILY PO 06/30/25 10:00 07/05/25 09:13 75 MG Diagnostic Test (Pha) 1 strip IQ4HR 06/29/25 20:00 07/05/25 08:39 1 STRIP Insulin Human Regular IQ4HR SC 06/29/25 20:00 07/05/25 04:00 6 UNITS Dextrose 50 ml UD PRN IV 06/29/25 17:30 Midazolam HCl 100 ml @ 1 mls/hr Q24H IV 06/29/25 18:00 07/04/25 23:26 7 MLS/HR Enoxaparin Sodium 100 mg Q12HR SC 06/30/25 10:00 07/04/25 22:29 100 MG Enteral Nutritional Formula 1,000 ml 45ML/HR GT 06/30/25 17:15 07/01/25 07:29 1,000 ML Acetaminophen 650 mg Q4HP PRN PO 07/01/25 17:00 07/03/25 00:43 650 MG Vancomycin HCl 0 ml @ 0 mls/hr PER PHARMACY IV 07/02/25 13:15 Vancomycin HCl 250 ml @ 250 mls/hr Q12H IV 07/03/25 15:00 Hold 07/05/25 03:00 250 MLS/HR Furosemide 20 mg BIDD IV 07/03/25 18:00 07/04/25 18:17 20 MG Meropenem 50 ml @ 17 mls/hr Q8HR IV 07/04/25 22:00 07/05/25 06:23 17 MLS/HR Metoprolol Tartrate 12.5 mg BID GT 07/04/25 22:00 Hold 07/04/25 22:29 12.5 MG Examination Patient lying in bed, under sedoanalgesia due to mechanical ventilation General: RASS -3, afebrile, mucosae are moist Cardiovascular: Normal S1 and S2. Holosystolic murmur best heard in apex which radiates towards axilla intensity 4/6. No gallops or rubs Respiratory: Mechanically assisted ventilation, equal bilateral airway entree. Clear lung sounds on auscultation. Abdomen: Soft, nontender, no organomegaly, normal bowel sounds MSK/skin: Mobilization of limbs cannot be evaluated. Skin is dry and warm. Presents bilateral erythematous and ulcerated lesions. Neurological: Orientation cannot be assessed. No apparent motor no sensitive deficits. Pupils are isocoric and reactive laboratory and microbiology Laboratory Tests 07/05/25 04:00 Test 07/05/25 04:00 Range/Units Serum Glucose 265 H 74-106 mg/dL Microbiology Date/Time Source Procedure Growth Status 07/03/25 16:00 Sputum Gram Stain - Final Resulted 07/03/25 16:00 Sputum Respiratory Culture - Preliminary Resulted 07/03/25 09:40 Blood Blood Culture - Preliminary NO GROWTH AFTER 48 HOURS OF INCUBATION. Resulted 07/01/25 22:35 Urine - Catheterized Urine Culture - Final Complete 06/29/25 04:30 Nose MRSA Screen - Final Complete Problem List/Assessment/Plan Problem List/Assessment/Plan Assessment Cardiac arrest secondary to ventricular arrhythmia (ventricular tachycardia and torsades de Pointe) - status post ROSC Acute respiratory failure NSTEMI type 1 - status post PCI with 4 STANLEY to circumflex and 3 STANLEY to LAD Newly diagnosed coronary artery disease - triple-vessel disease Prolonged QT Paroxysmal atrial fibrillation with RVR (chads Vasc 7) - secondary hypercoagulability state Metabolic acidosis with elevated anion gap secondary to hyperlacticacidemia KEANU hemodynamically mediated (VMN) 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 Initial ventriculogram shows LVEF of 15%. Revascularized culprit vessel. Completed stage procedure to LAD on 07/05/2025. Planning on completing staged RCA (can be completed in the center or in [place]). Initially was on heparin drip, now on therapeutic enoxaparin for A-fib. Echocardiogram: LVEF 20%, moderate LV enlargement, severe end stage HF, RV dysfunction, moderate MAC, mild MR and TR, moderate pulmonary HTN Will repeat echocardiogram in 1 week. Currently on mechanical assisted ventilation Avoid QT prolonging medication Replenish electrolytes. Goal magnesium above 2 and goal potassium above 4. On insulin sliding scale Rest of management per primary team (on IV antibiotics) Goals of care discussed with (Myrna) for over 18 minutes: Full code status Discussed plan with Dr. Pierre, and nurses: Patient currently ICU status due to mechanical assisted ventilation and low dose IV vasopressors. Completed initial coronary angiography on 06/29/2025 which showed triple-vessel disease with acute circumflex occlusion status post PCI with 4 STANLEY placed, staged procedure to LAD with 3 STANLEY on 07/05/2025. Planning on new stage procedure to RCA in 1 week. Repeat echocardiogram in 1 week. LVEDP of 9, switch furosemide IV to PO, and consider small amount of IV fluids. Optimize electrolytes, avoid QT prolonging medication. Patient has poor prognosis. Critical care time spent including discussion with nursing and family, excluding procedures: 72 minutes. Plan discussed with: Spouse, Other My Orders My Orders Orders - JOSELYN STEIN RESIDENT Procedure Category Date Status Time Npo Except For GRADY 07/05/25 In Process Medications 00:01 Obtain Consent For: ORDERS 07/04/25 Transmitted 09:57 Hold Enoxaparin Day [facility] 07/05/25 In Process Of Procedu 00:01 D/C Tlc GRADY 07/04/25 In Process 09:57 Shave Both Groins [facility] 07/04/25 In Process 09:57 Provide Education [facility] 07/04/25 In Process Materials 09:57 Cl Left Heart Cath CL 07/04/25 Logged 09:57 Comprehensive LAB 07/06/25 Verified Metabolic Panel 04:00 Npo (Nothing By DIET 07/05/25 Transmitted Mouth) Diet Breakfast Obtain Consent For GRADY 07/04/25 In Process Anesthesia 09:57 Dietary Evaluation Review Comments: 1. Protein needs based on 1.2-1.5g/protein/kg IBW d/t low GFR 2. While being intubated, offer TF Vital HP @45ml/hr, in 24 hr, Pt will receive 94g protein, 1080lkcal 903ml free water, meeting pts needs at 97% protein and 100% energy. 3. Consider TPN to meet pt's needs if Pt does not tolerate TF well. 4. Reassess when pt extubated, advance to CCHO-60 PO diet after passing a BAR SUPERVISOR evluation. Expected Outcomes/Goals: off intubation, advance to CCHO-60 Cardiac diet, gradual wt loss Visit Coding Cardiology RES Date of Service: Jul 05, 2025 Billing Provider: PHILLIP PIERRE Sr., MD Cardiology Common Codes: [id number] HOSP CARE(High Cardiology Secondary Visit Cod: [id number] CARE PLAN 30 MINUTES JOSELYN STEIN RESIDENT Jul 05, 2025 09:54
[2025-07-05] MEDS: VERAPAMIL 2.5MG/ML INJ 2ML VIAL IV ONE (13:20)
[2025-07-05] MEDS: fentaNYL CITRATE 100 MCG/2 ML VL ONE (13:20)
[2025-07-05] MEDS: ANGIOMAX 250 MG VIAL IV ONE ×2 (13:20→13:57)
[2025-07-05] MEDS: MIDAZOLAM HCL 2MG/2ML 2ml VIAL (1mg/ml) ONE (13:20)
[2025-07-05] MEDS: HEPARIN SODIUM (PORCINE) 5000 UNITS/ML 1ML VIAL ONE (13:20)
[2025-07-05] MEDS: LIDOCAINE 2%HCL (LOCAL ANESTH.) INJ 20ML MDV ONE (13:21)
[2025-07-05] MEDS: SODIUM CHL 0.9% 50 ML ONE ×2 (13:21→13:57)
[2025-07-05] MEDS: NITROGLYCERIN 50MG/250ML 250 ML IV ONE (13:25)
--- NOTE | 2025-07-05 15:02 | DVHPNRES ---
Progress Note Date Seen: Jul 05, 2025 Resident Creating Document: CYNTHIA LOVE RESIDENT Medical Necessity Reason Pt with a Central, PICC or Fol: Yes The following are medically ne: Central Line, Lau Catheter Reason for lau catheter: Strict I&O Subjective Review of Systems Patient is a 74-year-old male with past medical history of hypertension, diabetes type 2, dyslipidemia, paroxysmal atrial fibrillation, CVA in 2019, presented to the ED with chief complaints of 3 days of palpitations, shortness of breath before his admission. On arrival to the ED patient was found to have atrial fibrillation with RVR and was started on a diltiazem drip to control his heart rate. Patient progressed to have cardiac arrest secondary to ventricular arrhythmias possibly ventricular tachycardia or torsades de Pointe. Patient required CPR and ACLS maneuvers for 8 minutes followed by endotracheal intubation, obtained by ROSC. Patient was initially on amiodarone drip which was later discontinued after magnesium was given for QT prolongation. Due to clinical status obtained history of present illness and past medical history from EMR and who is at bedside. Could not obtain review of systems. Cardiology consulted for elevated troponins. Past medical history: Hypertension, dyslipidemia, diabetes, paroxysmal atrial fibrillation diagnosed in 2017 (chads Vasc 7), 2019 CVA Past surgical history: Appendectomy Family history: Two brothers had heart disease requiring CABG at the age of 40 and 50 respectively, brother had lung cancer, mother had breast cancer Social history: with . Ex tobacco abuse (eight pack-year history of smoking) quit 30 years ago. Denies current tobacco, alcohol and other drug abuse Allergies: Denies Home medication: Pradaxa 150 mg p.o. daily, atorvastatin 40 mg p.o. daily, hydrochlorothiazide 12.5 mg p.o. daily, lisinopril 20 mg p.o. daily, glipizide, metformin a 1000 mg p.o. b.i.d., metoprolol (he quit taking for four months since it made him tired). 06/30/25: Patient seen and examined at bedside. Patient is currently sedated and on mechanically ventilation, with ventilator settings at tidal volume 500, FiO2 30%, peep at 5, off of pressors phenylephrine and norepinephrine. 07/01/2025: Patient seen and examined at bedside. Patient is currently sedated and mechanically ventilated. Patient today has fever and elevated WBC, blood culture ordered. Patient is on pressor Levophed 9, patient's HR 150- 160s, order was given of metoprolol IV 5 mg with partial control of the RVR, also digoxin loading dose given. Metoprolol 25 mg PO daily was also placed for tomorrow. 07/02/2025: Patient seen and examined in ICU. Hr is under controlled. Intubated. temperature 99.3 started cefepime and vancomycin. blood culture G + bacteria. 07/03/2025 :Patient seen and examined in the ICU. Patient heart rate is under control, patient is intubated, mechanically ventilated, temperature 100.6. continue cefepime, vancomycin. Repeat blood cultures were ordered.(Staph coagulase negative, could be contaminate). Planning on performing LHC on Thursday07/05/2025, have informed . 07/04/2025: Patient seen and examined in ICU. Patient is mechanically intubated, patient had a fever yesterday night but decreased. Sputum culture showed Gram-negative rods. Discontinued cefepime. Started meropenem, 12.5 metoprolol b.i.d. Repeat blood cultures are negative. Planning on performing LHC on Thursday07/05/2025, have informed . 07/05/25: Patient seen and examined in ICU. Patient is mechanically intubated, patient had Bradycardia overnight for wich metoprlol was held. LHC was done today with 3 stents placed in the LAD. Possible RHC to be done. Objective vital signs Vital Sign Date Time Temp Pulse Resp B/P (MAP) Pulse Ox O2 Delivery O2 Flow Rate FiO2 07/05/25 14:22 96 18 111/66 100 30 07/05/25 12:16 98.6 209.5 07/05/25 10:00 Mechanical Ventilator+ Total Intake and Output 07/04/25 07/04/25 07/05/25 15:00 23:00 07:00 Intake Total 190.0 ml 749.0 ml 659.75 ml Output Total 700 ml 725 ml Balance 190.0 ml 49.0 ml -65.25 ml medications Current Medications Medications Dose Ordered Sig/Jesse Route Start Time Stop Time Status Last Admin Dose Admin Atorvastatin Calcium 40 mg HS PO 06/29/25 22:00 07/04/25 22:29 40 MG Norepinephrine Bitartrate 250 ml @ 3.75 mls/hr Q24H IV 06/29/25 06:15 07/05/25 06:45 3.75 MLS/HR Fentanyl Citrate 250 ml @ 2.5 mls/hr Q24H IV 06/29/25 06:15 07/05/25 00:55 15 MLS/HR Aspirin 81 mg DAILY PO 06/30/25 10:00 07/05/25 09:13 81 MG Insulin Human Regular HS SC 06/29/25 22:00 Cancel Insulin Human Regular AC SC 06/29/25 17:00 Cancel Pantoprazole Sodium 40 mg DAILY IV 06/30/25 10:00 07/05/25 09:13 40 MG Clopidogrel Bisulfate 75 mg DAILY PO 06/30/25 10:00 07/05/25 09:13 75 MG Diagnostic Test (Pha) 1 strip IQ4HR 06/29/25 20:00 07/05/25 12:20 1 STRIP Insulin Human Regular IQ4HR SC 06/29/25 20:00 07/05/25 04:00 6 UNITS Dextrose 50 ml UD PRN IV 06/29/25 17:30 Midazolam HCl 100 ml @ 1 mls/hr Q24H IV 06/29/25 18:00 07/04/25 23:26 7 MLS/HR Enoxaparin Sodium 100 mg Q12HR SC 06/30/25 10:00 07/04/25 22:29 100 MG Enteral Nutritional Formula 1,000 ml 45ML/HR GT 06/30/25 17:15 07/01/25 07:29 1,000 ML Acetaminophen 650 mg Q4HP PRN PO 07/01/25 17:00 07/03/25 00:43 650 MG Vancomycin HCl 0 ml @ 0 mls/hr PER PHARMACY IV 07/02/25 13:15 Vancomycin HCl 250 ml @ 250 mls/hr Q12H IV 07/03/25 15:00 Hold 07/05/25 03:00 250 MLS/HR Furosemide 20 mg BIDD IV 07/03/25 18:00 07/04/25 18:17 20 MG Meropenem 50 ml @ 17 mls/hr Q8HR IV 07/04/25 22:00 07/05/25 06:23 17 MLS/HR Examination Patient lying in bed, is mechanically intubated and sedated HEENT: Normocephalic, atraumatic, moist mucous membranes Respiratory/pulmonary: Clear lungs bilaterally, vesicular murmurs present in almost all lung roberts, no associated crackles or wheezes. Cardiovascular: Normal heart sounds S1 and S2 with no associated murmurs Abdomen: Abdomen nondistended, there is no pain to palpation in any of the abdominal quadrants, no palpable masses. Extremities: There is no peripheral edema present at the lower extremities. Bilateral erythematous and ulcerated lesions. Skin: No rashes or pruritus, there is no sacral edema present at this time. laboratory and microbiology Laboratory Tests 07/05/25 04:00 Test 07/05/25 04:00 Range/Units Serum Glucose 265 H 74-106 mg/dL Microbiology Date/Time Source Procedure Growth Status 07/03/25 16:00 Sputum Gram Stain - Final Resulted 07/03/25 16:00 Respiratory Culture - Preliminary Pseudomonas aeruginosa Resulted 07/03/25 09:40 Blood Blood Culture - Preliminary NO GROWTH AFTER 48 HOURS OF INCUBATION. Resulted 07/01/25 22:35 Urine - Catheterized Urine Culture - Final Complete 06/29/25 04:30 Nose MRSA Screen - Final Complete Problem List/Assessment/Plan Problem List/Assessment/Plan Neurology Acute metabolic encephalopathy History of CVA-with residual aphasia, right-sided deficit -Sedation/neurological status: Rass score -3 - off of Levophed, phenylephrine Cardiology Cardiac arrest secondary to ventricular arrhythmia (ventricular tachycardia, torsade de pointes) NSTEMI type 1 status post PCI Newly diagnosed coronary artery disease - triple-vessel disease Prolonged QT Paroxysmal atrial fibrillation with RVR Hypertension Dyslipidemia - EKG showed atrial fibrillation with anterior T-wave inversions, prolonged QT - coronary angiography showed severe triple-vessel disease with acutely occluded circumflex status post PCI with 1 drug-eluting stent placed. -ventriculogram showed LVEF of 15% - ordered echocardiography, lvef 20%, moderate LV enlargement, severe end stage HF - avoid QT prolongation medications - Dany Vasc score 7 -currently on vasopressors Levophed, phenylephrine -severe CAD in LAD and RCA, plan to do angiography on Thursday -patient given aspirin, atorvastatin, clopidogrel - ordered 12.5 metoprolol tartrate b.i.d. - LHC done (07/05) with # stents placed in LAD. - Possible RHC to be done. Respiratory Acute hypoxic respiratory failure likely due to cardiac arrest Possible Aspiration Pneumonia -ventilator settings: VT 500, respiratory rate 17, FiO2 30 %, PEEP 5 -chest x-ray: Similar bilateral inferior graded opacities, likely a combination of airspace disease and pleural effusion. Genitourinary/kidney Acute kidney injury likely due to be VMN -medication: Given Lasix 20 mg once -strict I&Os -nephrotoxic drugs Endocrine Uncontrolled diabetes mellitus, HbA1c 10.6 - on insulin sliding scale Infectious Septic shock due to Aspiration pneumonia -urine culture preliminary negative -blood cultures ordered, as WBC elevated and fever present -blood culture showed positive staph coagulase negative. - repeat blood cultures negative - Respiratory culture (07/03) - Pseudomonas aeruginosa - IV vancomycin, meropenem started(07/04) Transaminitis - monitor labs Obesity BMI 33.0 Lines / Tubes / Devices Airway: Intubated via ETT on 06/29 Vascular Access: Central line 06/29 Drips: Fentanyl, midazolam, norepinephrine, phenylephrine, Versed Prophylaxis / Supportive Care DVT Prophylaxis: Lovenox. GI Prophylaxis: Protonix. Goals of care discussed with the patient family for more than 29 minutes: Full code state Patient care updated to (Myrna), addressed all concerns. Critical care time spent excluding procedures 82 minutes Plan discussed with Dr. Waters and RN Plan discussed with: Spouse My Orders My Orders Orders - CYNTHIA LOVE RESIDENT Procedure Category Date Status Time Meropenem 1gm Ivpb PHA 07/04/25 In Process (Merrem 1gm/50ml) 22:00 Chest Xray 1 View XY 07/05/25 Resulted 04:00 Abg W/ Co-Ox RT 07/05/25 Logged 04:00 Complete Blood Count LAB 07/06/25 Verified 04:00 Chest Xray 1 View XY 07/06/25 Verified 04:00 Abg W/ Co-Ox RT 07/06/25 Verified 04:00 Dietary Evaluation Review Comments: 1. Protein needs based on 1.2-1.5g/protein/kg IBW d/t low GFR 2. While being intubated, offer TF Vital HP @45ml/hr, in 24 hr, Pt will receive 94g protein, 1080lkcal 903ml free water, meeting pts needs at 97% protein and 100% energy. 3. Consider TPN to meet pt's needs if Pt does not tolerate TF well. 4. Reassess when pt extubated, advance to CCHO-60 PO diet after passing a CIRCULATION LIBRARIAN evluation. Expected Outcomes/Goals: off intubation, advance to CCHO-60 Cardiac diet, gradual wt loss Date of Service: Jul 05, 2025 Billing Provider: YOBANY AGUIRRE MD Common Visit Codes: [id number] CARE 30-74 MIN, [id number] CARE-EACH +30MIN CYNTHIA LOVE Jul 05, 2025 15:02 YOBANY AGUIRRE MD Jul 06, 2025 12:51
--- NOTE | 2025-07-05 15:18 | DVHOP2 ---
Operative Report - 2 Report Details Date: 07/05/25 Preop Diagnosis: Severe CAD. Postop Diagnosis: PTCA and stenting of the LAD. Fractional flow reserve evaluation of the LAD. Intravascular ultrasound of LAD. Surgeon: Phillip Mtz MD Anesthesiologist: Conscious sedation Anesthesia: Mac, Local Consent: The patient's family was informed of the risks and benefits of the procedure. These include but are not limited to complications of anesthesia, p ostoperative infection, incomplete relief of symptoms, recurrence of symptoms, damage to blood vessels, nerves and tendons, deep venous thrombosis, pulmonary embolism and possible need for repeat surgery in the future. Complications: No complications Findings: Lad stenosis Indications for Surgery: Ischemic cardiomyopathy Name of Procedure Performed Bilateral cine coronary angiography. Left ventriculography. PTCA and stenting of the left anterior descending coronary artery. Fractional flow reserve evaluation of the left anterior descending coronary artery. IFR of the LAD Procedure Details Procedure Details: Prior local anesthesia with 2% lidocaine to the right wrist and full informed consent obtained the patient was prepped and draped in usual fashion followed by placement of a six Wolof slender sheath into the radial artery followed by placement of a three five EBU guide for angioplasty and stenting of the LAD and evaluation of RCA. Hemodynamics: Aortic blood pressure was 100/50. End-diastolic pressure was 12. There was no gradient across the aortic valve on pullback. Coronary anatomy: The RCA is a large dominant vessel. It has moderate plaquing in his proximal and mid section. The distal segment prior to the origin of the PDA and throughout the trans course to the posterolateral branches has severe disease with tandem lesions of 75-90% stenosis. Diminished flow to the PDA and posterolateral branches noted. Collateralization noted to the circumflex coronary artery. Left main is large and normal. Left anterior descending coronary artery was a large vessel with a proximal 90% stenosis. There was a mid 95% stenosis. Moderate plaquing throughout with the diagonals are free of significant disease. The circumflex previously stented is patent. The RCA has moderate diffuse disease of the distal RCA. This was previously mentioned in the last angiographic evaluation. Ventriculography was not performed. Angioplasty was performed for which a 4.0 EBU guide was then placed into the left main and omni wire was used to evaluate IFR of the LAD.. We placed the wire distally crossing several lesions into the distal LAD. We took a 2-0 ball oon and pre-dilated to the proximal and midportion. We then placed an intravascular ultrasound to evaluate the artery. Prior to this we performed cannulation with an Omni wire noting an IFR of 0.89 consistent with severe stenosis of the proximal and mid segment of the left anterior descending coronary artery. After noting the severity and pre dilating we placed a 30 by 2-0 mm stent into the mid left anterior descending coronary artery. We placed a two 5 x 12 proximally. Post dilated with a 2-0 balloon at moderate pressures. There was excellent antegrade flow without thrombus formation under dissection. Impression successful PTCA and stenting of the left anterior descending coronary artery. Normal end-diastolic pressure. Ventriculography not performed. Recommendations: Continue dual antiplatelet therapy lipid-lowering therapy. Ventilatory support. We will address the RCA at a later date. Condition Guarded Disposition Still a Patient Date of Service: Jul 05, 2025 Billing Provider: PHILLIP MTZ Sr., MD Cardiology Common Codes: 73643-RRVPPSZ INP/OBS CARE (High) Cardiology Procedure Codes: 84285-SOLERM VESSEL W/I VASC FAM, 04098 -PTCA W/STENT PLACEMENT, 70262-QSAY ADD CORONARY BRANCH PHILLIP MTZ Sr., MD Jul 05, 2025 15:18
[2025-07-05] MEDS: SODIUM CHLORIDE 0.9% 250 ML IV ONE (18:36)
--- NOTE | 2025-07-05 21:15 | DVH ---
CT HEAD WITHOUT CONTRAST INDICATION: tremors COMPARISON: None TECHNIQUE: CT of the head without intravenous contrast. RADIATION DOSE: CTDIvol: 64 mGy, DLP: 1131 mGy*cm FINDINGS: There is no evidence of acute intracranial hemorrhage, extra-axial collection, mass effect, midline s hift, herniation or hydrocephalus. The ventricles, sulci and cisterns are age appropriate. The purcell -white differentiation is intact. Chronic encephalomalacia is seen in the left temporoparietal lobe, likely sequelae of a remote infarct. Mucosal thickening of the bilateral maxillary sinuses. The surr ounding soft tissues and osseous structures are unremarkable. IMPRESSION: 1. No acute intracranial abnormality. 2. Bilateral maxillary sinusitis. 3. Chronic encephalomalacia in the left temporoparietal lobe, likely sequelae of a remote infarct.
[2025-07-05] MEDS: VANCOMYCIN 1GM/250ML KIT 250 ML IV SCH (21:41)
[2025-07-06] VITALS (109 sets, daily range): BP systolic 88–144; BP diastolic 41–72; PULSE 70–139; RESP 8–28; TEMP 90.7–99.3; O2SAT 92–100
[2025-07-06 03:37] LABS: Hematocrit 31.3 % (41.0-53.0); Hemoglobin 10.5 g/dL (13.5-17.5); Mean Corpuscular Hemoglobin 27.5 pg (28.0-32.0); Mean Corpuscular Volume 82.3 fL (80.0-100.0); Nucleated Red Blood Cells % 0.1 %
[2025-07-06 03:51] LABS: Alanine Aminotransferase 31 U/L (7-40); Anion Gap 8 (5-15); BUN/Creatinine Ratio 48.1 (10.0-20.0); Bilirubin, Total 0.8 mg/dL (0.2-1.0); Carbon Dioxide 29 mmol/L (20-31); Magnesium 2.3 mg/dL (1.6-2.6); Potassium 4.0 mmol/L (3.5-5.1); Sodium 144 mmol/L (136-145)
[2025-07-06 03:58] LABS: Albumin 2.7 g/dL (3.2-4.8); Alkaline Phosphatase 165 U/L (46-116); Blood Urea Nitrogen 39 mg/dL (9-23); Calcium 7.9 mg/dL (8.7-10.4); Chloride 107 mmol/L (98-107); Glucose 238 mg/dL (74-106); Total Protein 5.4 g/dL (5.7-8.2)
--- NOTE | 2025-07-06 05:19 | DVH ---
CHEST RADIOGRAPH Indication: on vent Technique: Single frontal view of the chest was obtained Comparison: XY CHEST XRAY 1 VIEW on DOS: 07/05/2025. FINDINGS: Lines and Tubes: The endotracheal tube terminates 3.0 cm above the kolby. The enteric tube courses b elow the left hemidiaphragm and the tip extends outside the field of view. Right central venous swapnil ter terminates in the superior vena cava. Lungs: Bilateral opacities are similar to prior study. Pleura: No effusion. No pneumothorax. Cardiomediastinal contours: Stable Cardiovascular silhouette. Bones: No acute osseous abnormality. IMPRESSION: 1. Support tubes in appropriate position. 2. Bilateral airspace opacities are similar to prior study.
[2025-07-06 07:23] LABS: Base Excess 2.9 mmol/L (-2.0-3.0)
[2025-07-06] MEDS: FUROSEMIDE 20 MG TAB PO SCH (10:12)
[2025-07-06] MEDS: INSULIN LANTUS (GLARGINE) 1 /0.01ml (100units/ml) SC SCH (22:07)
[2025-07-06] MEDS: DEXMEDETOMIDINE HCL IN D5W 100 ML IV SCH (23:35)
[2025-07-07] VITALS (111 sets, daily range): BP systolic 81–156; BP diastolic 40–91; PULSE 60–159; RESP 9–28; TEMP 96.4–100.2; O2SAT 91–100
[2025-07-07 04:17] LABS: Hematocrit 30.9 % (41.0-53.0); Hemoglobin 10.2 g/dL (13.5-17.5); Mean Corpuscular Hemoglobin 27.1 pg (28.0-32.0); Mean Corpuscular Volume 82.4 fL (80.0-100.0); Nucleated Red Blood Cells % 0.1 %
[2025-07-07 04:36] LABS: Alanine Aminotransferase 28 U/L (7-40); Anion Gap 8 (5-15); BUN/Creatinine Ratio 39.3 (10.0-20.0); Carbon Dioxide 28 mmol/L (20-31); Magnesium 2.4 mg/dL (1.6-2.6); Potassium 3.9 mmol/L (3.5-5.1); Sodium 144 mmol/L (136-145); Total Protein 5.8 g/dL (5.7-8.2)
[2025-07-07 04:37] LABS: Bilirubin, Total 0.6 mg/dL (0.2-1.0)
[2025-07-07 04:41] LABS: Albumin 2.9 g/dL (3.2-4.8); Alkaline Phosphatase 207 U/L (46-116); Blood Urea Nitrogen 35 mg/dL (9-23); Calcium 8.0 mg/dL (8.7-10.4); Chloride 108 mmol/L (98-107); Glucose 243 mg/dL (74-106)
--- NOTE | 2025-07-07 05:22 | DVH ---
CHEST RADIOGRAPH Indication: on vent Technique: 1 view Comparison: XY CHEST XRAY 1 VIEW on DOS: 07/06/25, XY CHEST XRAY 1 VIEW on DOS: 07/05/25, XY CHEST XR AY 1 VIEW on DOS: 07/04/25, XY CHEST PORTABLE on DOS: 07/03/25, XY CHEST XRAY 1 VIEW on DOS: 07/02/25 FINDINGS: Lines and Tubes: Unchanged. Lungs/Pleura: Unchanged. Cardiomediastinum: Unchanged. Other: Unchanged osseous structures. IMPRESSION: No significant change from the previous day. Stable support devices. Similar graded mid to basilar o pacities.
[2025-07-07 07:53] LABS: Base Excess 5.2 mmol/L (-2.0-3.0)
--- NOTE | 2025-07-07 10:41 | ECG ---
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
--- NOTE | 2025-07-07 11:06 | DVHPNRES ---
Progress Note Date Seen: Jul 06, 2025 Resident Creating Document: JOSELYN STEIN RESIDENT Medical Necessity Reason Pt with a Central, PICC or Fol: Yes The following are medically ne: Central Line, Lau Catheter Reason for lau catheter: Strict I&O Subjective Review of Systems Hardy Almanza is a 74-year-old male patient who presents to ED with chief complaint of palpitation three days before his admission. Upon his arrival to the emergency department he was diagnosed with atrial fibrillation with rapid ventricular response and placed on a diltiazem drip to control his heart rate. Patient progressed with cardiac arrest secondary to ventricular arrhythmias (ventricular tachycardia and torsades de Pointe) requiring CPR and ACLS maneuvers (three epinephrine, 300 mg of amiodarone and defibrillation x2) for 8 minutes with endotracheal intubation, obtaining ROSC. Patient initially was placed on amiodarone drip, but then was discontinued and indicated magnesium due to prolonged QT. Due to clinical status obtained history of present illness and past medical history from EMR and who is at bedside. Could not obtain review of systems. Cardiology consulted for elevated troponins. 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 Ex tobacco abuse (eight pack-year history of smoking) quit 30 years ago. Denies current tobacco, alcohol and other drug abuse Allergies: Denies Home medication: Pradaxa 150 mg p.o. daily, atorvastatin 40 mg p.o. daily, hydrochlorothiazide 12.5 mg p.o. daily, lisinopril 20 mg p.o. daily, glipizide, metformin a 1000 mg p.o. b.i.d., metoprolol (he quit taking for four months since it made him tired). Patient seen and examined at bedside. Currently under mechanical assisted ventilation, IV vasopressors on stand by. Completed stage procedure to LAD with 3 STANLEY placed (2 mid and 1 proximal). Continue with triple therapy at this point. We will recommend repeat echocardiogram end-stage procedure to RCA in one week. Objective vital signs Vital Sign Date Time Temp Pulse Resp B/P (MAP) Pulse Ox O2 Delivery O2 Flow Rate FiO2 07/06/25 09:51 78 22 105/51 (69) 96 30 07/06/25 06:45 99.0 210.2 07/06/25 06:40 Mechanical Ventilator+ Total Intake and Output 07/05/25 07/05/25 07/06/25 15:00 23:00 07:00 Intake Total 210 ml 624.5 ml 419 ml Output Total 325 ml 475 ml Balance 210 ml 299.5 ml -56 ml medications Current Medications Medications Dose Ordered Sig/Jesse Route Start Time Stop Time Status Last Admin Dose Admin Atorvastatin Calcium 40 mg HS PO 06/29/25 22:00 07/05/25 21:42 40 MG Norepinephrine Bitartrate 250 ml @ 3.75 mls/hr Q24H IV 06/29/25 06:15 07/05/25 06:45 3.75 MLS/HR Fentanyl Citrate 250 ml @ 2.5 mls/hr Q24H IV 06/29/25 06:15 07/06/25 03:15 20 MLS/HR Aspirin 81 mg DAILY PO 06/30/25 10:00 07/05/25 09:13 81 MG Insulin Human Regular HS SC 06/29/25 22:00 Cancel Insulin Human Regular AC SC 06/29/25 17:00 Cancel Pantoprazole Sodium 40 mg DAILY IV 06/30/25 10:00 07/05/25 09:13 40 MG Clopidogrel Bisulfate 75 mg DAILY PO 06/30/25 10:00 07/05/25 09:13 75 MG Diagnostic Test (Pha) 1 strip IQ4HR 06/29/25 20:00 07/06/25 08:11 1 STRIP Insulin Human Regular IQ4HR SC 06/29/25 20:00 07/06/25 08:39 9 UNITS Dextrose 50 ml UD PRN IV 06/29/25 17:30 Midazolam HCl 100 ml @ 1 mls/hr Q24H IV 06/29/25 18:00 07/06/25 07:25 6 MLS/HR Enoxaparin Sodium 100 mg Q12HR SC 06/30/25 10:00 07/05/25 21:41 100 MG Enteral Nutritional Formula 1,000 ml 45ML/HR GT 06/30/25 17:15 07/01/25 07:29 1,000 ML Acetaminophen 650 mg Q4HP PRN PO 07/01/25 17:00 07/03/25 00:43 650 MG Vancomycin HCl 0 ml @ 0 mls/hr PER PHARMACY IV 07/02/25 13:15 Meropenem 50 ml @ 17 mls/hr Q8HR IV 07/04/25 22:00 07/06/25 05:30 17 MLS/HR Furosemide 20 mg DAILY PO 07/06/25 10:00 Vancomycin HCl 250 ml @ 250 mls/hr BID@0900,2100 IV 07/05/25 21:00 07/06/25 08:40 250 MLS/HR Examination Patient lying in bed, under sedoanalgesia due to mechanical ventilation General: RASS -3, afebrile, mucosae are moist Cardiovascular: Normal S1 and S2. Holosystolic murmur best heard in apex which radiates towards axilla intensity 4/6. No gallops or rubs Respiratory: Mechanically assisted ventilation, equal bilateral airway entree. Clear lung sounds on auscultation. Abdomen: Soft, nontender, no organomegaly, normal bowel sounds MSK/skin: Mobilization of limbs cannot be evaluated. Skin is dry and warm. Presents bilateral erythematous and ulcerated lesions. Neurological: Orientation cannot be assessed. No apparent motor no sensitive deficits. Pupils are isocoric and reactive laboratory and microbiology Laboratory Tests 07/06/25 03:00 Test 07/06/25 03:00 Range/Units Serum Glucose 238 H 74-106 mg/dL Microbiology Date/Time Source Procedure Growth Status 07/03/25 16:00 Sputum Gram Stain - Final Resulted 07/03/25 16:00 Respiratory Culture - Preliminary Pseudomonas aeruginosa Resulted 07/03/25 09:40 Blood Blood Culture - Preliminary NO GROWTH AFTER 72 HOURS OF INCUBATION. Resulted 07/01/25 22:35 Urine - Catheterized Urine Culture - Final Complete 06/29/25 04:30 Nose MRSA Screen - Final Complete Problem List/Assessment/Plan Problem List/Assessment/Plan Assessment Cardiac arrest secondary to ventricular arrhythmia (ventricular tachycardia and torsades de Pointe) - status post ROSC Acute respiratory failure NSTEMI type 1 - status post PCI with 4 STANLEY to circumflex and 3 STANLEY to LAD Newly diagnosed coronary artery disease - triple-vessel disease Prolonged QT Paroxysmal atrial fibrillation with RVR (chads Vasc 7) - secondary hypercoagulability state Metabolic acidosis with elevated anion gap secondary to hyperlacticacidemia KEANU hemodynamically mediated (VMN) 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 Initial ventriculogram shows LVEF of 15%. Revascularized culprit vessel. Completed stage procedure to LAD on 07/05/2025. Planning on completing staged RCA (can be completed in the center or in [place]). Initially was on heparin drip, now on therapeutic enoxaparin for A-fib. Echocardiogram: LVEF 20%, moderate LV enlargement, severe end stage HF, RV dysfunction, moderate MAC, mild MR and TR, moderate pulmonary HTN GDMT once patient is off of IV vasopressors Will repeat echocardiogram in 1 week. Currently on mechanical assisted ventilation Avoid QT prolonging medication Replenish electrolytes. Goal magnesium above 2 and goal potassium above 4. On insulin sliding scale Rest of management per primary team (on IV antibiotics) Goals of care discussed with (Myrna) for over 18 minutes: Full code status Discussed plan with Dr. Pierre, and nurses: Patient currently ICU status due to mechanical assisted ventilation and IV vasopressors on stand by. Completed initial coronary angiography on 06/29/2025 which showed triple-vessel disease with acute circumflex occlusion status post PCI with 4 STANLEY placed, staged procedure to LAD with 3 STANLEY on 07/05/2025. Planning on new stage procedure to RCA in 1 week. Repeat echocardiogram in 1 week. LVEDP of 9, switch furosemide IV to PO, and consider small amount of IV fluids. Optimize electrolytes, avoid QT prolonging medication. Patient has poor prognosis. Critical care time spent including discussion with nursing and family, excluding procedures: 66 minutes. Plan discussed with: Spouse, Other (Nurses) My Orders My Orders Orders - JOSELYN STEIN RESIDENT Procedure Category Date Status Time Furosemide Tablet PHA 07/06/25 In Process (Lasix Tablet) 10:00 Dietary Evaluation Review Comments: 1. Protein needs based on 1.2-1.5g/protein/kg IBW d/t low GFR 2. While being intubated, offer TF Vital HP @45ml/hr, in 24 hr, Pt will receive 94g protein, 1080lkcal 903ml free water, meeting pts needs at 97% protein and 100% energy. 3. Consider TPN to meet pt's needs if Pt does not tolerate TF well. 4. Reassess when pt extubated, advance to CCHO-60 PO diet after passing a DIAGRAMMER evluation. Expected Outcomes/Goals: off intubation, advance to CCHO-60 Cardiac diet, gradual wt loss Visit Coding Cardiology RES Date of Service: Jul 06, 2025 Billing Provider: PHILLIP PIERRE Sr., MD Cardiology Common Codes: 45246-[id number] HOSP CARE(High Cardiology Secondary Visit Cod: [id number] CARE PLAN 30 MINUTES JOSELYN STEIN RESIDENT Jul 06, 2025 10:02
--- NOTE | 2025-07-07 11:19 | DVHPNRES ---
Progress Note Date Seen: Jul 06, 2025 Resident Creating Document: CYNTHIA LOVE RESIDENT Medical Necessity Reason Pt with a Central, PICC or Fol: Yes The following are medically ne: Central Line, Lau Catheter Reason for lau catheter: Strict I&O Subjective Review of Systems Patient is a 74-year-old male with past medical history of hypertension, diabetes type 2, dyslipidemia, paroxysmal atrial fibrillation, CVA in 2019, presented to the ED with chief complaints of 3 days of palpitations, shortness of breath before his admission. On arrival to the ED patient was found to have atrial fibrillation with RVR and was started on a diltiazem drip to control his heart rate. Patient progressed to have cardiac arrest secondary to ventricular arrhythmias possibly ventricular tachycardia or torsades de Pointe. Patient required CPR and ACLS maneuvers for 8 minutes followed by endotracheal intubation, obtained by ROSC. Patient was initially on amiodarone drip which was later discontinued after magnesium was given for QT prolongation. Due to clinical status obtained history of present illness and past medical history from EMR and who is at bedside. Could not obtain review of systems. Cardiology consulted for elevated troponins. Past medical history: Hypertension, dyslipidemia, diabetes, paroxysmal atrial fibrillation diagnosed in 2017 (chads Vasc 7), 2019 CVA Past surgical history: Appendectomy Family history: Two brothers had heart disease requiring CABG at the age of 40 and 50 respectively, brother had lung cancer, mother had breast cancer Social history: with . Ex tobacco abuse (eight pack-year history of smoking) quit 30 years ago. Denies current tobacco, alcohol and other drug abuse Allergies: Denies Home medication: Pradaxa 150 mg p.o. daily, atorvastatin 40 mg p.o. daily, hydrochlorothiazide 12.5 mg p.o. daily, lisinopril 20 mg p.o. daily, glipizide, metformin a 1000 mg p.o. b.i.d., metoprolol (he quit taking for four months since it made him tired). 06/30/25: Patient seen and examined at bedside. Patient is currently sedated and on mechanically ventilation, with ventilator settings at tidal volume 500, FiO2 30%, peep at 5, off of pressors phenylephrine and norepinephrine. 07/01/2025: Patient seen and examined at bedside. Patient is currently sedated and mechanically ventilated. Patient today has fever and elevated WBC, blood culture ordered. Patient is on pressor Levophed 9, patient's HR 150- 160s, order was given of metoprolol IV 5 mg with partial control of the RVR, also digoxin loading dose given. Metoprolol 25 mg PO daily was also placed for tomorrow. 07/02/2025: Patient seen and examined in ICU. Hr is under controlled. Intubated. temperature 99.3 started cefepime and vancomycin. blood culture G + bacteria. 07/03/2025 :Patient seen and examined in the ICU. Patient heart rate is under control, patient is intubated, mechanically ventilated, temperature 100.6. continue cefepime, vancomycin. Repeat blood cultures were ordered.(Staph coagulase negative, could be contaminate). Planning on performing LHC on Thursday07/05/2025, have informed . 07/04/2025: Patient seen and examined in ICU. Patient is mechanically intubated, patient had a fever yesterday night but decreased. Sputum culture showed Gram-negative rods. Discontinued cefepime. Started meropenem, 12.5 metoprolol b.i.d. Repeat blood cultures are negative. Planning on performing LHC on Thursday07/05/2025, have informed . 07/05/25: Patient seen and examined in ICU. Patient is mechanically intubated, patient had Bradycardia overnight for wich metoprlol was held. LHC was done today with 3 stents placed in the LAD. Possible RHC to be done. 07/06/2025: patient seen and examined in ICU. Patient is mechanically ventilated, had a left heart catheterization done yesterday with 3 stents placed in the LAD, Planning to do next procedure in one week to RCA. Objective vital signs Vital Sign Date Time Temp Pulse Resp B/P (MAP) Pulse Ox O2 Delivery O2 Flow Rate FiO2 07/06/25 16:00 98.1 84 18 113/52 (72) 97 208.6 07/06/25 16:00 Mechanical Ventilator+ 30 30 Total Intake and Output 07/05/25 07/05/25 07/06/25 15:00 23:00 07:00 Intake Total 210 ml 874.5 ml 445 ml Output Total 325 ml 475 ml Balance 210 ml 549.5 ml -30 ml medications Current Medications Medications Dose Ordered Sig/Jesse Route Start Time Stop Time Status Last Admin Dose Admin Atorvastatin Calcium 40 mg HS PO 06/29/25 22:00 07/05/25 21:42 40 MG Norepinephrine Bitartrate 250 ml @ 3.75 mls/hr Q24H IV 06/29/25 06:15 07/05/25 06:45 3.75 MLS/HR Fentanyl Citrate 250 ml @ 2.5 mls/hr Q24H IV 06/29/25 06:15 07/06/25 03:15 20 MLS/HR Aspirin 81 mg DAILY PO 06/30/25 10:00 07/06/25 10:13 81 MG Insulin Human Regular HS SC 06/29/25 22:00 Cancel Insulin Human Regular AC SC 06/29/25 17:00 Cancel Pantoprazole Sodium 40 mg DAILY IV 06/30/25 10:00 07/06/25 10:13 40 MG Clopidogrel Bisulfate 75 mg DAILY PO 06/30/25 10:00 07/06/25 10:12 75 MG Diagnostic Test (Pha) 1 strip IQ4HR 06/29/25 20:00 07/06/25 12:06 1 STRIP Insulin Human Regular IQ4HR SC 06/29/25 20:00 07/06/25 12:15 12 UNITS Dextrose 50 ml UD PRN IV 06/29/25 17:30 Midazolam HCl 100 ml @ 1 mls/hr Q24H IV 06/29/25 18:00 07/06/25 07:25 6 MLS/HR Enoxaparin Sodium 100 mg Q12HR SC 06/30/25 10:00 07/06/25 10:13 100 MG Enteral Nutritional Formula 1,000 ml 45ML/HR GT 06/30/25 17:15 07/01/25 07:29 1,000 ML Acetaminophen 650 mg Q4HP PRN PO 07/01/25 17:00 07/03/25 00:43 650 MG Vancomycin HCl 0 ml @ 0 mls/hr PER PHARMACY IV 07/02/25 13:15 Meropenem 50 ml @ 17 mls/hr Q8HR IV 07/04/25 22:00 07/06/25 14:02 17 MLS/HR Furosemide 20 mg DAILY PO 07/06/25 10:00 07/06/25 10:12 20 MG Vancomycin HCl 250 ml @ 250 mls/hr BID@0900,2100 IV 07/05/25 21:00 07/06/25 08:40 250 MLS/HR Insulin Glargine 12 units HS SC 07/06/25 22:00 Examination Patient lying in bed, is mechanically intubated and sedated HEENT: Normocephalic, atraumatic, moist mucous membranes Respiratory/pulmonary: Clear lungs bilaterally, vesicular murmurs present in almost all lung roberts, no associated crackles or wheezes. Cardiovascular: Normal heart sounds S1 and S2 with no associated murmurs Abdomen: Abdomen nondistended, there is no pain to palpation in any of the abdominal quadrants, no palpable masses. Extremities: There is no peripheral edema present at the lower extremities. Bilateral erythematous and ulcerated lesions. Skin: No rashes or pruritus, there is no sacral edema present at this time. laboratory and microbiology Laboratory Tests 07/06/25 03:00 Test 07/06/25 03:00 Range/Units Serum Glucose 238 H 74-106 mg/dL Microbiology Date/Time Source Procedure Growth Status 07/03/25 16:00 Sputum Gram Stain - Final Complete 07/03/25 16:00 Respiratory Culture - Final Pseudomonas aeruginosa Serratia marcescens Complete 07/03/25 09:40 Blood Blood Culture - Preliminary NO GROWTH AFTER 72 HOURS OF INCUBATION. Resulted 07/01/25 22:35 Urine - Catheterized Urine Culture - Final Complete 06/29/25 04:30 Nose MRSA Screen - Final Complete Problem List/Assessment/Plan Problem List/Assessment/Plan Neurology Acute metabolic encephalopathy History of CVA-with residual aphasia, right-sided deficit -Sedation/neurological status: Rass score -3 - off of Levophed, phenylephrine Cardiology Cardiac arrest secondary to ventricular arrhythmia (ventricular tachycardia, torsade de pointes) NSTEMI type 1 status post PCI Newly diagnosed coronary artery disease - triple-vessel disease Prolonged QT Paroxysmal atrial fibrillation with RVR Hypertension Dyslipidemia - EKG showed atrial fibrillation with anterior T-wave inversions, prolonged QT - coronary angiography showed severe triple-vessel disease with acutely occluded circumflex status post PCI with 1 drug-eluting stent placed. -ventriculogram showed LVEF of 15% - ordered echocardiography, lvef 20%, moderate LV enlargement, severe end stage HF - avoid QT prolongation medications - Dany Vasc score 7 -currently on vasopressors Levophed, phenylephrine -severe CAD in LAD and RCA, plan to do angiography on Thursday -patient given aspirin, atorvastatin, clopidogrel - ordered 12.5 metoprolol tartrate b.i.d. - C done (07/05) with 3 stents placed in LAD. - Planning on new stage procedure to RCA in 1 week. Repeat echocardiogram in 1 week Respiratory Acute hypoxic respiratory failure likely due to cardiac arrest Possible Aspiration Pneumonia -ventilator settings: VT 500, respiratory rate 17, FiO2 30 %, PEEP 5 -chest x-ray: Similar bilateral inferior graded opacities, likely a combination of airspace disease and pleural effusion. Genitourinary/kidney Acute kidney injury likely due to be VMN -medication: Given Lasix 20 mg once -strict I&Os -nephrotoxic drugs Endocrine Uncontrolled diabetes mellitus, HbA1c 10.6 - on insulin sliding scale Infectious Septic shock due to Aspiration pneumonia -urine culture preliminary negative -blood cultures ordered, as WBC elevated and fever present -blood culture showed positive staph coagulase negative. - repeat blood cultures negative - Respiratory culture (07/03) - Pseudomonas aeruginosa - IV vancomycin, meropenem started(07/04) Transaminitis - monitor labs Obesity BMI 33.0 Lines / Tubes / Devices Airway: Intubated via ETT on 06/29 Vascular Access: Central line 06/29 Drips: Fentanyl, midazolam, norepinephrine, phenylephrine, Versed Prophylaxis / Supportive Care DVT Prophylaxis: Lovenox. GI Prophylaxis: Protonix. Goals of care discussed with the patient family for more than 29 minutes: Full code state Patient care updated to (Myrna), addressed all concerns. Critical care time spent excluding procedures 82 minutes Plan discussed with Dr. Waters and RN Plan discussed with: Spouse My Orders My Orders Orders - CYNTHIA LOVE RESIDENT Procedure Category Date Status Time Dexmedetomidine Hcl PHA 07/06/25 In Process In D5w (Precedex) 13:15 Insulin Lantus PHA 07/06/25 In Process (Glargine) (Lantus) 22:00 Dietary Evaluation Review Comments: 1. Protein needs based on 1.2-1.5g/protein/kg IBW d/t low GFR 2. While being intubated, offer TF Vital HP @45ml/hr, in 24 hr, Pt will receive 94g protein, 1080lkcal 903ml free water, meeting pts needs at 97% protein and 100% energy. 3. Consider TPN to meet pt's needs if Pt does not tolerate TF well. 4. Reassess when pt extubated, advance to CCHO-60 PO diet after passing a RN ORTHO evluation. Expected Outcomes/Goals: off intubation, advance to CCHO-60 Cardiac diet, gradual wt loss Date of Service: Jul 06, 2025 Billing Provider: YOBANY AGUIRRE MD Common Visit Codes: [id number] CARE 30-74 MIN, [id number] CARE-EACH +30MIN CYNTHIA LOVE RESIDENT Jul 06, 2025 16:24 YOBANY AGUIRRE MD Jul 08, 2025 11:37
--- NOTE | 2025-07-07 11:41 | DVHPNRES ---
Progress Note Date Seen: Jul 07, 2025 Resident Creating Document: JOSELYN STEIN RESIDENT Medical Necessity Reason Pt with a Central, PICC or Fol: Yes The following are medically ne: Central Line, Lau Catheter Reason for lau catheter: Strict I&O Subjective Review of Systems Hardy Almanza is a 74-year-old male patient who presents to ED with chief complaint of palpitation three days before his admission. Upon his arrival to the emergency department he was diagnosed with atrial fibrillation with rapid ventricular response and placed on a diltiazem drip to control his heart rate. Patient progressed with cardiac arrest secondary to ventricular arrhythmias (ventricular tachycardia and torsades de Pointe) requiring CPR and ACLS maneuvers (three epinephrine, 300 mg of amiodarone and defibrillation x2) for 8 minutes with endotracheal intubation, obtaining ROSC. Patient initially was placed on amiodarone drip, but then was discontinued and indicated magnesium due to prolonged QT. Due to clinical status obtained history of present illness and past medical history from EMR and who is at bedside. Could not obtain review of systems. Cardiology consulted for elevated troponins. Past medical history: Hypertension, dyslipidemia, diabetes, paroxysmal atrial fibrillation diagnosed in 2017 requiring electrical cardioversion converting to sinus rhythm for nine months, and then presented paroxysmal atrial fibrillation (chads Vasc 7), 2020 CVA with residual aphasia and right-sided deficits patient is self-sufficient and mobilizes with wheelchair (requires for bathing assistance) Past surgical history: Appendectomy Family history: Two brothers had heart disease requiring CABG at the age of 40 and 50 respectively, brother had lung cancer, mother had breast cancer Social history: Lives in [place] with (next of kin and caregiver). Ex tobacco abuse (eight pack-year history of smoking) quit 30 years ago. Denies current tobacco, alcohol and other drug abuse Allergies: Denies Home medication: Pradaxa 150 mg p.o. daily, atorvastatin 40 mg p.o. daily, hydrochlorothiazide 12.5 mg p.o. daily, lisinopril 20 mg p.o. daily, glipizide, metformin a 1000 mg p.o. b.i.d., metoprolol (he quit taking for four months since it made him tired). Patient seen and examined at bedside. Currently under mechanical assisted ventilation, off vasopressors. Completed stage procedure to LAD with 3 STANLEY placed (2 mid and 1 proximal). Continue with triple therapy at this point. We will recommend repeat echocardiogram and stage procedure to RCA in one week. Objective vital signs Vital Sign Date Time Temp Pulse Resp B/P (MAP) Pulse Ox O2 Delivery O2 Flow Rate FiO2 07/07/25 08:22 18 97 Mechanical Ventilator+ 30 30 07/07/25 08:02 67 94/46 (62) 07/07/25 06:45 99.1 210.4 Total Intake and Output 07/06/25 07/06/25 07/07/25 15:00 23:00 07:00 Intake Total 140.75 ml 912.25 ml 154.226 ml Output Total 500 ml 450 ml Balance 140.75 ml 412.25 ml -295.774 ml medications Current Medications Medications Dose Ordered Sig/Jesse Route Start Time Stop Time Status Last Admin Dose Admin Atorvastatin Calcium 40 mg HS PO 06/29/25 22:00 07/06/25 21:31 40 MG Norepinephrine Bitartrate 250 ml @ 3.75 mls/hr Q24H IV 06/29/25 06:15 07/05/25 06:45 3.75 MLS/HR Fentanyl Citrate 250 ml @ 2.5 mls/hr Q24H IV 06/29/25 06:15 07/06/25 19:14 12.5 MLS/HR Aspirin 81 mg DAILY PO 06/30/25 10:00 07/07/25 07:59 81 MG Insulin Human Regular HS SC 06/29/25 22:00 Cancel Insulin Human Regular AC SC 06/29/25 17:00 Cancel Pantoprazole Sodium 40 mg DAILY IV 06/30/25 10:00 07/07/25 07:56 40 MG Clopidogrel Bisulfate 75 mg DAILY PO 06/30/25 10:00 07/07/25 07:58 75 MG Diagnostic Test (Pha) 1 strip IQ4HR 06/29/25 20:00 07/07/25 07:59 1 STRIP Insulin Human Regular IQ4HR SC 06/29/25 20:00 07/07/25 08:13 6 UNITS Dextrose 50 ml UD PRN IV 06/29/25 17:30 Midazolam HCl 100 ml @ 1 mls/hr Q24H IV 06/29/25 18:00 07/06/25 07:25 6 MLS/HR Enoxaparin Sodium 100 mg Q12HR SC 06/30/25 10:00 07/07/25 07:56 100 MG Enteral Nutritional Formula 1,000 ml 45ML/HR GT 06/30/25 17:15 07/01/25 07:29 1,000 ML Acetaminophen 650 mg Q4HP PRN PO 07/01/25 17:00 07/03/25 00:43 650 MG Vancomycin HCl 0 ml @ 0 mls/hr PER PHARMACY IV 07/02/25 13:15 Meropenem 50 ml @ 17 mls/hr Q8HR IV 07/04/25 22:00 07/07/25 05:27 17 MLS/HR Furosemide 20 mg DAILY PO 07/06/25 10:00 07/07/25 07:59 20 MG Vancomycin HCl 250 ml @ 250 mls/hr BID@0900,2100 IV 07/05/25 21:00 07/06/25 21:00 250 MLS/HR Insulin Glargine 12 units HS SC 07/06/25 22:00 07/06/25 22:07 12 UNITS Examination Patient lying in bed, under sedoanalgesia due to mechanical ventilation General: RASS -3, afebrile, mucosae are moist Cardiovascular: Normal S1 and S2. Holosystolic murmur best heard in apex which radiates towards axilla intensity 4/6. No gallops or rubs Respiratory: Mechanically assisted ventilation, equal bilateral airway entree. Clear lung sounds on auscultation. Abdomen: Soft, nontender, no organomegaly, normal bowel sounds MSK/skin: Mobilization of limbs cannot be evaluated. Skin is dry and warm. Presents bilateral erythematous and ulcerated lesions. Neurological: Orientation cannot be assessed. No apparent motor no sensitive deficits. Pupils are isocoric and reactive laboratory and microbiology Laboratory Tests 07/07/25 03:00 Test 07/07/25 03:00 Range/Units Serum Glucose 243 H 74-106 mg/dL Microbiology Date/Time Source Procedure Growth Status 07/03/25 16:00 Sputum Gram Stain - Final Complete 07/03/25 16:00 Respiratory Culture - Final Pseudomonas aeruginosa Serratia marcescens Complete 07/03/25 09:40 Blood Blood Culture - Preliminary NO GROWTH AFTER 72 HOURS OF INCUBATION. Resulted 07/01/25 22:35 Urine - Catheterized Urine Culture - Final Complete 06/29/25 04:30 Nose MRSA Screen - Final Complete Problem List/Assessment/Plan Problem List/Assessment/Plan Assessment Cardiac arrest secondary to ventricular arrhythmia (ventricular tachycardia and torsades de Pointe) - status post ROSC Acute respiratory failure NSTEMI type 1 - status post PCI with 4 STANLEY to circumflex and 3 STANLEY to LAD Newly diagnosed coronary artery disease - triple-vessel disease Prolonged QT Paroxysmal atrial fibrillation with RVR (chads Vasc 7) - secondary hypercoagulability state Metabolic acidosis with elevated anion gap secondary to hyperlacticacidemia KEANU hemodynamically mediated (VMN) 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 Initial ventriculogram shows LVEF of 15%. Revascularized culprit vessel. Completed stage procedure to LAD on 07/05/2025. Planning on completing staged RCA (can be completed in the center or in [place]). Initially was on heparin drip, now on therapeutic enoxaparin for A-fib. Echocardiogram: LVEF 20%, moderate LV enlargement, severe end stage HF, RV dysfunction, moderate MAC, mild MR and TR, moderate pulmonary HTN Will repeat echocardiogram in 1 week. Currently on mechanical assisted ventilation Avoid QT prolonging medication Replenish electrolytes. Goal magnesium above 2 and goal potassium above 4. On insulin sliding scale Rest of management per primary team (on IV antibiotics) Goals of care discussed with (Myrna) for over 18 minutes: Full code status Discussed plan with Dr. Pierre, and nurses: Patient currently ICU status due to mechanical assisted ventilation and offvasopressors. Completed initial coronary angiography on 06/29/2025 which showed triple-vessel disease with acute circumflex occlusion status post PCI with 4 STANLEY placed, staged procedure to LAD with 3 STANLEY on 07/05/2025. Planning on new stage procedure to RCA in 1 week. Repeat echocardiogram in 1 week. LVEDP of 9, switch furosemide IV to PO, and consider small amount of IV fluids. Optimize electrolytes, avoid QT prolonging medication. Patient has poor prognosis. Critical care time spent including discussion with nursing and family, excluding procedures: 69 minutes. Plan discussed with: Spouse, Other (Nurses) Dietary Evaluation Review Comments: 1. Protein needs based on 1.2-1.5g/protein/kg IBW d/t low GFR 2. While being intubated, offer TF Vital HP @45ml/hr, in 24 hr, Pt will receive 94g protein, 1080lkcal 903ml free water, meeting pts needs at 97% protein and 100% energy. 3. Consider TPN to meet pt's needs if Pt does not tolerate TF well. 4. Reassess when pt extubated, advance to CCHO-60 PO diet after passing a PHOTOGRAPHIC COLORIST evluation. Expected Outcomes/Goals: off intubation, advance to CCHO-60 Cardiac diet, gradual wt loss Visit Coding Cardiology RES Date of Service: Jul 07, 2025 Billing Provider: PHILLIP PIERRE Sr., MD Cardiology Common Codes: [id number] HOSP CARE(High Cardiology Secondary Visit Cod: [id number] CARE PLAN 30 MINUTES JOSELYN STEIN RESIDENT Jul 07, 2025 08:26
--- NOTE | 2025-07-07 11:43 | DVHPNRES ---
Progress Note Date Seen: Jul 07, 2025 Resident Creating Document: CYNTHIA LOVE RESIDENT Medical Necessity Reason Pt with a Central, PICC or Fol: Yes The following are medically ne: Central Line, Lau Catheter Reason for lau catheter: Strict I&O Subjective Review of Systems Patient is a 74-year-old male with past medical history of hypertension, diabetes type 2, dyslipidemia, paroxysmal atrial fibrillation, CVA in 2019, presented to the ED with chief complaints of 3 days of palpitations, shortness of breath before his admission. On arrival to the ED patient was found to have atrial fibrillation with RVR and was started on a diltiazem drip to control his heart rate. Patient progressed to have cardiac arrest secondary to ventricular arrhythmias possibly ventricular tachycardia or torsades de Pointe. Patient required CPR and ACLS maneuvers for 8 minutes followed by endotracheal intubation, obtained by ROSC. Patient was initially on amiodarone drip which was later discontinued after magnesium was given for QT prolongation. Due to clinical status obtained history of present illness and past medical history from EMR and who is at bedside. Could not obtain review of systems. Cardiology consulted for elevated troponins. Past medical history: Hypertension, dyslipidemia, diabetes, paroxysmal atrial fibrillation diagnosed in 2017 (chads Vasc 7), 2019 CVA Past surgical history: Appendectomy Family history: Two brothers had heart disease requiring CABG at the age of 40 and 50 respectively, brother had lung cancer, mother had breast cancer Social history: with . Ex tobacco abuse (eight pack-year history of smoking) quit 30 years ago. Denies current tobacco, alcohol and other drug abuse Allergies: Denies Home medication: Pradaxa 150 mg p.o. daily, atorvastatin 40 mg p.o. daily, hydrochlorothiazide 12.5 mg p.o. daily, lisinopril 20 mg p.o. daily, glipizide, metformin a 1000 mg p.o. b.i.d., metoprolol (he quit taking for four months since it made him tired). 06/30/25: Patient seen and examined at bedside. Patient is currently sedated and on mechanically ventilation, with ventilator settings at tidal volume 500, FiO2 30%, peep at 5, off of pressors phenylephrine and norepinephrine. 07/01/2025: Patient seen and examined at bedside. Patient is currently sedated and mechanically ventilated. Patient today has fever and elevated WBC, blood culture ordered. Patient is on pressor Levophed 9, patient's HR 150- 160s, order was given of metoprolol IV 5 mg with partial control of the RVR, also digoxin loading dose given. Metoprolol 25 mg PO daily was also placed for tomorrow. 07/02/2025: Patient seen and examined in ICU. Hr is under controlled. Intubated. temperature 99.3 started cefepime and vancomycin. blood culture G + bacteria. 07/03/2025 :Patient seen and examined in the ICU. Patient heart rate is under control, patient is intubated, mechanically ventilated, temperature 100.6. continue cefepime, vancomycin. Repeat blood cultures were ordered.(Staph coagulase negative, could be contaminate). Planning on performing LHC on Thursday07/05/2025, have informed . 07/04/2025: Patient seen and examined in ICU. Patient is mechanically intubated, patient had a fever yesterday night but decreased. Sputum culture showed Gram-negative rods. Discontinued cefepime. Started meropenem, 12.5 metoprolol b.i.d. Repeat blood cultures are negative. Planning on performing LHC on Thursday07/05/2025, have informed . 07/05/25: Patient seen and examined in ICU. Patient is mechanically intubated, patient had Bradycardia overnight for wich metoprlol was held. LHC was done today with 3 stents placed in the LAD. Possible RHC to be done. 07/06/2025: patient seen and examined in ICU. Patient is mechanically ventilated, had a left heart catheterization done yesterday with 3 stents placed in the LAD, Planning to do next procedure in one week to RCA. 07/07/2025: patient seen and examined in ICU. Patient is mechanically ventilated, had a left heart catheterization done yesterday with 3 stents placed in the LAD, CPAP trial done today, failed, we will try again tomorrow. Objective vital signs Vital Sign Date Time Temp Pulse Resp B/P (MAP) Pulse Ox O2 Delivery O2 Flow Rate FiO2 07/07/25 10:02 77 18 112/67 (82) 96 30 07/07/25 09:36 Mechanical Ventilator+ 07/07/25 09:31 97.3 207.1 Total Intake and Output 07/06/25 07/06/25 07/07/25 15:00 23:00 07:00 Intake Total 140.75 ml 912.25 ml 162.071 ml Output Total 500 ml 450 ml Balance 140.75 ml 412.25 ml -287.929 ml medications Current Medications Medications Dose Ordered Sig/Jesse Route Start Time Stop Time Status Last Admin Dose Admin Atorvastatin Calcium 40 mg HS PO 06/29/25 22:00 07/06/25 21:31 40 MG Norepinephrine Bitartrate 250 ml @ 3.75 mls/hr Q24H IV 06/29/25 06:15 07/05/25 06:45 3.75 MLS/HR Fentanyl Citrate 250 ml @ 2.5 mls/hr Q24H IV 06/29/25 06:15 07/06/25 19:14 12.5 MLS/HR Aspirin 81 mg DAILY PO 06/30/25 10:00 07/07/25 07:59 81 MG Insulin Human Regular HS SC 06/29/25 22:00 Cancel Insulin Human Regular AC SC 06/29/25 17:00 Cancel Pantoprazole Sodium 40 mg DAILY IV 06/30/25 10:00 07/07/25 07:56 40 MG Clopidogrel Bisulfate 75 mg DAILY PO 06/30/25 10:00 07/07/25 07:58 75 MG Diagnostic Test (Pha) 1 strip IQ4HR 06/29/25 20:00 07/07/25 07:59 1 STRIP Insulin Human Regular IQ4HR SC 06/29/25 20:00 07/07/25 08:13 6 UNITS Dextrose 50 ml UD PRN IV 06/29/25 17:30 Midazolam HCl 100 ml @ 1 mls/hr Q24H IV 06/29/25 18:00 07/06/25 07:25 6 MLS/HR Enoxaparin Sodium 100 mg Q12HR SC 06/30/25 10:00 07/07/25 07:56 100 MG Enteral Nutritional Formula 1,000 ml 45ML/HR GT 06/30/25 17:15 07/01/25 07:29 1,000 ML Acetaminophen 650 mg Q4HP PRN PO 07/01/25 17:00 07/03/25 00:43 650 MG Vancomycin HCl 0 ml @ 0 mls/hr PER PHARMACY IV 07/02/25 13:15 Meropenem 50 ml @ 17 mls/hr Q8HR IV 07/04/25 22:00 07/07/25 05:27 17 MLS/HR Furosemide 20 mg DAILY PO 07/06/25 10:00 07/07/25 07:59 20 MG Vancomycin HCl 250 ml @ 250 mls/hr BID@0900,2100 IV 07/05/25 21:00 07/07/25 09:00 250 MLS/HR Insulin Glargine 12 units HS SC 07/06/25 22:00 07/06/25 22:07 12 UNITS Examination Patient lying in bed, is mechanically intubated and sedated HEENT: Normocephalic, atraumatic, moist mucous membranes Respiratory/pulmonary: Clear lungs bilaterally, vesicular murmurs present in almost all lung roberts, no associated crackles or wheezes. Cardiovascular: Normal heart sounds S1 and S2 with no associated murmurs Abdomen: Abdomen nondistended, there is no pain to palpation in any of the abdominal quadrants, no palpable masses. Extremities: There is no peripheral edema present at the lower extremities. Bilateral erythematous and ulcerated lesions. Skin: No rashes or pruritus, there is no sacral edema present at this time. laboratory and microbiology Laboratory Tests 07/07/25 03:00 Test 07/07/25 03:00 Range/Units Serum Glucose 243 H 74-106 mg/dL Microbiology Date/Time Source Procedure Growth Status 07/03/25 16:00 Sputum Gram Stain - Final Complete 07/03/25 16:00 Respiratory Culture - Final Pseudomonas aeruginosa Serratia marcescens Complete 07/03/25 09:40 Blood Blood Culture - Preliminary NO GROWTH AFTER 72 HOURS OF INCUBATION. Resulted 07/01/25 22:35 Urine - Catheterized Urine Culture - Final Complete 06/29/25 04:30 Nose MRSA Screen - Final Complete Problem List/Assessment/Plan Problem List/Assessment/Plan Neurology Acute metabolic encephalopathy History of CVA-with residual aphasia, right-sided deficit -Sedation/neurological status: Rass score -3 - off of Levophed, phenylephrine Cardiology Cardiac arrest secondary to ventricular arrhythmia (ventricular tachycardia, torsade de pointes) NSTEMI type 1 status post PCI Newly diagnosed coronary artery disease - triple-vessel disease Prolonged QT Paroxysmal atrial fibrillation with RVR Hypertension Dyslipidemia - EKG showed atrial fibrillation with anterior T-wave inversions, prolonged QT - coronary angiography showed severe triple-vessel disease with acutely occluded circumflex status post PCI with 1 drug-eluting stent placed. -ventriculogram showed LVEF of 15% - ordered echocardiography, lvef 20%, moderate LV enlargement, severe end stage HF - avoid QT prolongation medications - Dany Vasc score 7 -currently on vasopressors Levophed, phenylephrine -severe CAD in LAD and RCA, plan to do angiography on Thursday -patient given aspirin, atorvastatin, clopidogrel - ordered 12.5 metoprolol tartrate b.i.d. - LHC done (07/05) with 3 stents placed in LAD. - Planning on new stage procedure to RCA in 1 week. Repeat echocardiogram in 1 week Respiratory Acute hypoxic respiratory failure likely due to cardiac arrest Possible Aspiration Pneumonia -ventilator settings: VT 500, respiratory rate 17, FiO2 30 %, PEEP 5 -chest x-ray: Similar bilateral inferior graded opacities, likely a combination of airspace disease and pleural effusion. Genitourinary/kidney Acute kidney injury likely due to be VMN -medication: Given Lasix 20 mg once -strict I&Os -nephrotoxic drugs Endocrine Uncontrolled diabetes mellitus, HbA1c 10.6 - on insulin sliding scale Infectious Septic shock due to Aspiration pneumonia -urine culture preliminary negative -blood cultures ordered, as WBC elevated and fever present -blood culture showed positive staph coagulase negative. - repeat blood cultures negative - Respiratory culture (07/03) - Pseudomonas aeruginosa - IV vancomycin, meropenem started(07/04) Transaminitis - monitor labs Obesity BMI 33.0 Lines / Tubes / Devices Airway: Intubated via ETT on 06/29 Vascular Access: Central line 06/29 Drips: Fentanyl, midazolam, norepinephrine, phenylephrine, Versed Prophylaxis / Supportive Care DVT Prophylaxis: Lovenox. GI Prophylaxis: Protonix. Goals of care discussed with the patient family for more than 29 minutes: Full code state Patient care updated to ([place]), addressed all concerns. Critical care time spent excluding procedures 85 minutes Plan discussed with Dr. Mason and RN Plan discussed with: Spouse My Orders My Orders Orders - CYNTHIA LOVE RESIDENT Procedure Category Date Status Time Dexmedetomidine Hcl PHA 07/06/25 In Process In D5w (Precedex) 13:15 Insulin Lantus PHA 07/06/25 In Process (Glargine) (Lantus) 22:00 Abg W/ Co-Ox RT 07/07/25 Logged 04:00 Chest Xray 1 View XY 07/07/25 Resulted 04:00 Dietary Evaluation Review Comments: 1. Protein needs based on 1.2-1.5g/protein/kg IBW d/t low GFR 2. While being intubated, offer TF Vital HP @45ml/hr, in 24 hr, Pt will receive 94g protein, 1080lkcal 903ml free water, meeting pts needs at 97% protein and 100% energy. 3. Consider TPN to meet pt's needs if Pt does not tolerate TF well. 4. Reassess when pt extubated, advance to CCHO-60 PO diet after passing a [employer] evluation. Expected Outcomes/Goals: off intubation, advance to CCHO-60 Cardiac diet, gradual wt loss CYNTHIA LOVE RESIDENT Jul 07, 2025 10:32
[2025-07-07] MEDS: POTASSIUM CHL 20MEQ/100ML 100 ML IV ONE (12:20)
[2025-07-07] MEDS: ACETYLCYSTEINE 10 %(100MG/ML) SOL 4ML NEB ONE (18:07)
[2025-07-07] MEDS: ALBUTEROL SULF 2.5 MG/0.5ML(0.5%) NEB SOLN NEB ONE (18:07)
[2025-07-07] MEDS: ALBUTEROL SULF 2.5 MG/0.5ML(0.5%) NEB SOLN ONE (18:08)
[2025-07-07] MEDS: METOPROLOL SUCCINATE XL 50 MG TAB PO ONE (18:49)
[2025-07-07] MEDS ORDERED: LABETALOL HCL 20 MG/4 ML VL IV PRN (20:30)
[2025-07-08] VITALS (112 sets, daily range): BP systolic 60–190; BP diastolic 32–113; PULSE 42–160; RESP 14–36; TEMP 97.2–99.3; O2SAT 84–100
[2025-07-08] MEDS: ATROPINE SULF 1 MG/10ml SYR IV ONE (02:00)
[2025-07-08 03:15] LABS: Hematocrit 36.0 % (41.0-53.0); Hemoglobin 11.7 g/dL (13.5-17.5); Mean Corpuscular Hemoglobin 27.6 pg (28.0-32.0); Mean Corpuscular Volume 84.7 fL (80.0-100.0); Nucleated Red Blood Cells % 0.0 %
[2025-07-08 03:34] LABS: Alanine Aminotransferase 28 U/L (7-40); Anion Gap 8 (5-15); BUN/Creatinine Ratio 40.5 (10.0-20.0); Carbon Dioxide 28 mmol/L (20-31); Magnesium 2.2 mg/dL (1.6-2.6); Potassium 4.1 mmol/L (3.5-5.1); Sodium 145 mmol/L (136-145)
[2025-07-08 03:35] LABS: Bilirubin, Total 0.6 mg/dL (0.2-1.0)
[2025-07-08 03:56] LABS: Albumin 2.7 g/dL (3.2-4.8); Alkaline Phosphatase 210 U/L (46-116); Blood Urea Nitrogen 34 mg/dL (9-23); Calcium 7.9 mg/dL (8.7-10.4); Chloride 109 mmol/L (98-107); Glucose 222 mg/dL (74-106); Total Protein 5.5 g/dL (5.7-8.2)
--- NOTE | 2025-07-08 06:26 | DVHPN2 ---
Subjective DOS: 07/07/2025 Patient seen and examined at bedside. Intubated on mechanical ventilator. Overnight events reviewed. Changes from previous H/P or p: No Changes Objective Vitals Vital Signs Date Time Temp Pulse Resp B/P (MAP) Pulse Ox O2 Delivery O2 Flow Rate FiO2 07/08/25 05:27 109/73 07/08/25 04:15 97.5 93 24 94 207.5 07/08/25 04:00 30 07/07/25 22:00 Mechanical Ventilator+ 07/07/25 20:00 18 Intake/Output Intake and Output 07/08/25 07:00 Intake Total 519.572 ml Output Total 650 ml Balance -130.428 ml Intake Oral 50 ml IV Total 469.572 ml Output Urine Total 650 ml Exam Gen.: Patient lying in bed in medical ICU. Intubated on mechanical ventilator. Head: Normocephalic, atraumatic. Eyes: PERRLA. Ears: Normal external anatomy. Throat: Endotracheal tube and orogastric tube in place. Neck: Supple, trachea midline. Chest: Transmitted breath sounds bilaterally. Decreased air entry bilaterally. No wheezing. Bibasilar crackles. Cardiovascular: Positive S1, positive S2. Regular rate and rhythm. Abdomen: Positive bowel sounds in all 4 quadrants. Soft, nontender, nondistended. : Daley in place. Normal external genitalia. Rectal: Deferred. Skin: Warm, dry. Intact. Extremities: 2+ radial pulses bilaterally. No lower extremity edema. Neuro: Off sedation Medications Current Medications Medications Dose Ordered Sig/Jesse Route Start Time Stop Time Status Last Admin Dose Admin Atorvastatin Calcium 40 mg HS PO 06/29/25 22:00 07/07/25 22:03 40 MG Norepinephrine Bitartrate 250 ml @ 3.75 mls/hr Q24H IV 06/29/25 06:15 07/05/25 06:45 3.75 MLS/HR Fentanyl Citrate 250 ml @ 2.5 mls/hr Q24H IV 06/29/25 06:15 07/08/25 05:27 10 MLS/HR Aspirin 81 mg DAILY PO 06/30/25 10:00 07/07/25 07:59 81 MG Insulin Human Regular HS SC 06/29/25 22:00 Cancel Insulin Human Regular AC SC 06/29/25 17:00 Cancel Pantoprazole Sodium 40 mg DAILY IV 06/30/25 10:00 07/07/25 07:56 40 MG Clopidogrel Bisulfate 75 mg DAILY PO 06/30/25 10:00 07/07/25 07:58 75 MG Diagnostic Test (Pha) 1 strip IQ4HR 06/29/25 20:00 07/08/25 04:58 1 STRIP Insulin Human Regular IQ4HR SC 06/29/25 20:00 07/08/25 04:58 6 UNITS Dextrose 50 ml UD PRN IV 06/29/25 17:30 Midazolam HCl 100 ml @ 1 mls/hr Q24H IV 06/29/25 18:00 07/06/25 07:25 6 MLS/HR Enoxaparin Sodium 100 mg Q12HR SC 06/30/25 10:00 07/07/25 22:04 100 MG Enteral Nutritional Formula 1,000 ml 45ML/HR GT 06/30/25 17:15 07/01/25 07:29 1,000 ML Acetaminophen 650 mg Q4HP PRN PO 07/01/25 17:00 07/03/25 00:43 650 MG Vancomycin HCl 0 ml @ 0 mls/hr PER PHARMACY IV 07/02/25 13:15 Meropenem 50 ml @ 17 mls/hr Q8HR IV 07/04/25 22:00 07/08/25 05:16 17 MLS/HR Furosemide 20 mg DAILY PO 07/06/25 10:00 07/07/25 07:59 20 MG Vancomycin HCl 250 ml @ 250 mls/hr BID@0900,2100 IV 07/05/25 21:00 07/07/25 21:03 250 MLS/HR Insulin Glargine 12 units HS SC 07/06/25 22:00 07/07/25 22:05 12 UNITS Polyethylene Glycol 17 gm DAILY PO 07/08/25 10:00 Metoprolol Succinate 12.5 mg DAILY PO 07/08/25 10:00 Laboratory Results Laboratory Tests 07/08/25 02:56 Chemistry Test 07/08/25 02:56 Albumin 2.7 g/dL (3.2-4.8) L Calcium Level 7.9 mg/dL (8.7-10.4) L Magnesium Level 2.2 mg/dL (1.6-2.6) Total Protein 5.5 g/dL (5.7-8.2) L LFT Test 07/08/25 02:56 Alanine Aminotransferase (ALT) 28 U/L (7-40) Alkaline Phosphatase 210 U/L (46-116) H Aspartate Amino Transferase (AST) 21 U/L (13-40) Total Bilirubin 0.6 mg/dL (0.2-1.0) Urinalysis Test 06/28/25 17:12 Urine Color Colorless (Yellow) Urine Clarity Clear (Clear) Urine pH 5.0 (5.0-9.0) Urine Specific [place] 1.005 (1.001-1.035) Urine Protein Negative (Negative) Urine Ketones Negative (Negative) Urine Blood Negative /uL (Negative) Urine Nitrite Negative (Negative) Urine Bilirubin Negative (Negative) Urine Urobilinogen Normal mg/dL (Negative) Urine Leukocyte Esterase Negative /uL (Negative) Urine RBC 1 /hpf (0 - 3) Urine Microscopic WBC < 1 /HPF (0-3) Urine Squamous Epithelial Cells None seen /hpf (<5) Urine Bacteria None seen /hpf (None Seen) Urine Glucose 2+ mg/dL (Normal) H Blood Gas Results Test 07/07/25 07:21 Arterial Blood pH 7.503 (7.350-7.450) FiO2 % 30.0 Microbiology Microbiology Date/Time Source Procedure Growth Status 07/03/25 16:00 Sputum Gram Stain - Final Complete 07/03/25 16:00 Respiratory Culture - Final Pseudomonas aeruginosa Serratia marcescens Complete 07/03/25 09:40 Blood Blood Culture - Preliminary NO GROWTH AFTER 72 HOURS OF INCUBATION. Resulted 07/01/25 22:35 Urine - Catheterized Urine Culture - Final Complete 06/29/25 04:30 Nose MRSA Screen - Final Complete Assessment/Plan Assessment/Plan Impression: Acute hypoxic respiratory failure On mechanical ventilator Acute metabolic encephalopathy Septic shock Aspiration pneumonia Non-ST elevation OR Paroxysmal atrial fibrillation w/ RVR History of CVA Acute kidney injury Obesity Events: Patient seen and examined in ICU. Patient is mechanically ventilated. On AC mode; RR 18, VT 500, PEEP 5, FiO2 30% Taper FIO2 as tolerated CXR image and report reviewed. Devices in place. Similar mid to basilar opacities, unchanged. No pneumothorax. No pleural effusion. ABG reviewed, notable for alkalemia. Patient underwent left heart catheterization yesterday with 3 stents placed in the LAD. Cardiology recommendations appreciated. CPAP trial done today, failed, we will try again tomorrow. Labs and imaging reviewed. Plan: s/p intubation on mechanical ventilator. On AC mode; RR 18, VT 500, PEEP 5, FiO2 30% Titrate FIO2 to keep O2 saturation above 90%. VAP bundle. Daily ABG and CXR while intubated Continue bronchodilators/Mucomyst Continue antibiotics. Follow up cultures. Pressors as necessary for hemodynamic support Titrate to keep mean arterial pressure greater than 65 mmHg. Accu-Cheks, ISS Diurese with Lasix as tolerated Monitor renal function Monitor electrolytes. Supplement as necessary. Monitor ins and outs. Maintain euvolemia. GI prophylaxis. DVT prophylaxis. Recommend diet and lifestyle modifications for weight reduction Obesity complicates all care Prognosis: Poor given patient's multiple co-morbidities. Condition: Critical Rest of plan per hospitalist and other consultants. A total of 35 minutes of critical care time was spent reviewing the patient record, examining the patient, making a diagnostic and therapeutic plan, discussing this plan with the medical personnel, following up on diagnostic studies and following the patient for clinical stability excluding any and all procedures. At least 50% of this time was spent in direct, [id number] contact. Thank you, , for allowing me to participate in this patient's care. Further recommendations will depend on the patient's clinical course. Please do not hesitate to contact me if you have any questions or concerns. This medical document was created using an electronic medical record system with [employer] dictation system. Although these documentations are being carefully reviewed, there may still be some phonetic and typographical changes. The errors are purely typographical, due to imperfection on the software program, and do not reflect any compromise in the patient's medical care. Plan discussed with: Other (RN) Visit Coding Pulmonary Billing Provider: ENRIQUE ODONNELL MD Date of Service if different f: Jul 07, 2025 Common Visit Codes: [id number] INP/OBS CARE(HIGH), [id number] CARE 30-74 MIN ENRIQUE ODONNELL MD Jul 08, 2025 06:26
--- NOTE | 2025-07-08 06:49 | DVH ---
CHEST RADIOGRAPH Indication: on vent Technique: Single frontal view of the chest was obtained COMPARISON: XY CHEST XRAY 1 VIEW on DOS: 07/07/25, XY CHEST XRAY 1 VIEW on DOS: 07/06/25, XY CHEST XR AY 1 VIEW on DOS: 07/05/25, XY CHEST XRAY 1 VIEW on DOS: 07/04/25, XY CHEST PORTABLE on DOS: 07/03/25 FINDINGS: Lines and Tubes: Unchanged. Lungs: Stable bilateral pleural effusions and bibasilar pulmonary airspace disease. No pneumothorax. Cardiomediastinal contours: Cardiomegaly. Bones: Unremarkable IMPRESSION: 1. Stable bilateral pleural effusions and bibasilar pulmonary airspace disease. 2. Cardiomegaly. 3. Lines and tubes unchanged.
[2025-07-08 07:02] LABS: Base Excess 3.0 mmol/L (-2.0-3.0)
[2025-07-08] MEDS: POLYETHYLENE GLYCOL 17 GM PWDR PO SCH (08:03)
[2025-07-08] MEDS: METOPROLOL SUCCINATE XL 50 MG TAB PO SCH (09:33)
--- NOTE | 2025-07-08 09:52 | DVHPN2 ---
Consult Progress Note Subjective Other Systems: The patient remains in atrial fibrillation with depressed T-waves on monitoring specialist. Nonsustained V-tach overnight Nonsustained atrial fibrillation with slow ventricular rate overnight. Plan for CPAP trial today. Objective vital signs Vital Sign Date Time Temp Pulse Resp B/P (MAP) Pulse Ox O2 Delivery O2 Flow Rate FiO2 07/08/25 09:15 98.9 85 18 98/56 (70) 94 98.9 07/08/25 08:59 30 07/08/25 08:00 Mechanical Ventilator+ 07/07/25 20:00 18 Total Intake and Output 07/07/25 07/07/25 07/08/25 15:00 23:00 07:00 Intake Total 384.054 ml 220.261 ml 103.795 ml Output Total 650 ml 370 ml Balance 384.054 ml -429.739 ml -266.205 ml medications Current Medications Medications Dose Ordered Sig/Jesse Route Start Time Stop Time Status Last Admin Dose Admin Atorvastatin Calcium 40 mg HS PO 06/29/25 22:00 07/07/25 22:03 40 MG Norepinephrine Bitartrate 250 ml @ 3.75 mls/hr Q24H IV 06/29/25 06:15 07/05/25 06:45 3.75 MLS/HR Fentanyl Citrate 250 ml @ 2.5 mls/hr Q24H IV 06/29/25 06:15 07/08/25 05:27 10 MLS/HR Aspirin 81 mg DAILY PO 06/30/25 10:00 07/08/25 08:06 81 MG Insulin Human Regular HS SC 06/29/25 22:00 Cancel Insulin Human Regular AC SC 06/29/25 17:00 Cancel Pantoprazole Sodium 40 mg DAILY IV 06/30/25 10:00 07/08/25 08:03 40 MG Clopidogrel Bisulfate 75 mg DAILY PO 06/30/25 10:00 07/08/25 08:06 75 MG Diagnostic Test (Pha) 1 strip IQ4HR 06/29/25 20:00 07/08/25 08:07 1 STRIP Insulin Human Regular IQ4HR SC 06/29/25 20:00 07/08/25 08:23 3 UNITS Dextrose 50 ml UD PRN IV 06/29/25 17:30 Midazolam HCl 100 ml @ 1 mls/hr Q24H IV 06/29/25 18:00 07/06/25 07:25 6 MLS/HR Enoxaparin Sodium 100 mg Q12HR SC 06/30/25 10:00 07/08/25 08:03 100 MG Enteral Nutritional Formula 1,000 ml 45ML/HR GT 06/30/25 17:15 07/01/25 07:29 1,000 ML Acetaminophen 650 mg Q4HP PRN PO 07/01/25 17:00 07/03/25 00:43 650 MG Vancomycin HCl 0 ml @ 0 mls/hr PER PHARMACY IV 07/02/25 13:15 Meropenem 50 ml @ 17 mls/hr Q8HR IV 07/04/25 22:00 07/08/25 05:16 17 MLS/HR Furosemide 20 mg DAILY PO 07/06/25 10:00 07/08/25 08:06 20 MG Vancomycin HCl 250 ml @ 250 mls/hr BID@0900,2100 IV 07/05/25 21:00 07/08/25 08:07 250 MLS/HR Insulin Glargine 12 units HS SC 07/06/25 22:00 07/07/25 22:05 12 UNITS Polyethylene Glycol 17 gm DAILY PO 07/08/25 10:00 07/08/25 08:03 17 GM Metoprolol Succinate 12.5 mg DAILY PO 07/08/25 10:00 Propofol 100 ml @ 3.225 mls/ hr Q24H IV 07/08/25 09:45 UNV Examination: GENERAL:Abnormal, LUNGS:Abnormal (Mechanically ventilated, Fio2 30%, PEEP 5.0) laboratory and microbiology Laboratory Tests 07/08/25 02:56 Test 07/08/25 02:56 Range/Units Serum Glucose 222 H 74-106 mg/dL Problem List/Assessment/Plan Problem List/Assessment/Plan Cardiac arrest secondary to ventricular arrhythmia (ventricular tachycardia and torsades de pointes) Paroxysmal atrial fibrillation with episodes of rapid ventricular response (on Pradaxa at home) NSTEMI type 1, s/p PTCA with 4 STANLEY to Cx and 3 STANLEY to LAD Severe coronary artery disease (triple vessel disease), newly diagnosed DeNovo HFrEF, NYHA class IV Mild mitral and tricuspid valve regurgitation Acute hypoxic respiratory failure Pulmonary hypertension Hypertension Dyslipidemia Type 2 diabetes mellitus 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 Mtz): A transthoracic echocardiogram reveals an EF of 20% with severe end-stage heart failure. Given suboptimal blood pressures, full guideline directed medical therapy for CHF can not be initiated. We will initiate with optimal blood pressures. The patient has a underwent a coronary angiogram with left heart catheterization on 06/29/25 and 07/05/25 with PCI and 4 STANLEY to Cx and 3 STANLEY to LAD. We are tentatively planning for a staged procedure to RCA on 07/12/2025. In the meantime, continue with dual antiplatelet therapy and lipid-lowering agent. [id number] VASc score: 7 points, HAS-BLED score: 2 points. Continue therapeutic Lovenox while inpatient, transition back to DOAC prior to discharge. Avoid QT prolonging medications. Monitor and replenish electrolytes as needed keeping potassium greater than four and magnesium greater than two. Further recommendations per clinical course and progression. Thank you for allowing us to care for this patient. Please call with any questions or concerns. Critical care time spent: 38 minutes. This medical document was created using an electronic medical record system with voice recognition software and computerized dictation system. Although this document has been carefully reviewed, there might still be some phonetic and typographical errors. Occasional wrong-word or ``sound-alike substitutions may have occurred due to the inherent limitations of voice recognition software. These areas are purely typographical due to imperfections of the software programs and do not reflect any compromise in the patient's medical care. Please read the chart carefully and recognize, using context, where these substitutions have occurred. Plan discussed with: Other (Bedside RN) Dietary Evaluation Review Comments: 1. Protein needs based on 1.2-1.5g/protein/kg IBW d/t low GFR 2. While being intubated, offer TF Vital HP @45ml/hr, in 24 hr, Pt will receive 94g protein, 1080lkcal 903ml free water, meeting pts needs at 97% protein and 100% energy. 3. Consider TPN to meet pt's needs if Pt does not tolerate TF well. 4. Reassess when pt extubated, advance to CCHO-60 PO diet after passing a AERODYNAMICIST evluation. Expected Outcomes/Goals: off intubation, advance to CCHO-60 Cardiac diet, gradual wt loss Date of Service: Jul 08, 2025 Billing Provider: LANAZ,FRANCO N [employer]LECTRON[employer] MECHANIC Common Visit Codes: [id number] CARE 30-74 MIN FRANCO LANZA ELECTRONICS MECHANIC Jul 08, 2025 09:52
[2025-07-08] MEDS: PROPOFOL 100 ML IV SCH (12:00)
--- NOTE | 2025-07-08 14:49 | DVHPNRES ---
Progress Note Date Seen: Jul 08, 2025 Resident Creating Document: ANIBAL NAGEL RESIDENT Medical Necessity Reason Pt with a Central, PICC or Fol: Yes The following are medically ne: Central Line, Lau Catheter Reason for lau catheter: Strict I&O Subjective Review of Systems Patient is a 74-year-old male with past medical history of hypertension, diabetes type 2, dyslipidemia, paroxysmal atrial fibrillation, CVA in 2019, presented to the ED with chief complaints of 3 days of palpitations, shortness of breath before his admission. On arrival to the ED patient was found to have atrial fibrillation with RVR and was started on a diltiazem drip to control his heart rate. Patient progressed to have cardiac arrest secondary to ventricular arrhythmias possibly ventricular tachycardia or torsades de Pointe. Patient required CPR and ACLS maneuvers for 8 minutes followed by endotracheal intubation, obtained by ROSC. Patient was initially on amiodarone drip which was later discontinued after magnesium was given for QT prolongation. Due to clinical status obtained history of present illness and past medical history from EMR and who is at bedside. Could not obtain review of systems. Cardiology consulted for elevated troponins. Past medical history: Hypertension, dyslipidemia, diabetes, paroxysmal atrial fibrillation diagnosed in 2017 (chads Vasc 7), 2019 CVA Past surgical history: Appendectomy Family history: Two brothers had heart disease requiring CABG at the age of 40 and 50 respectively, brother had lung cancer, mother had breast cancer Social history: with . Ex tobacco abuse (eight pack-year history of smoking) quit 30 years ago. Denies current tobacco, alcohol and other drug abuse Allergies: Denies Home medication: Pradaxa 150 mg p.o. daily, atorvastatin 40 mg p.o. daily, hydrochlorothiazide 12.5 mg p.o. daily, lisinopril 20 mg p.o. daily, glipizide, metformin a 1000 mg p.o. b.i.d., metoprolol (he quit taking for four months since it made him tired). 06/30/25: Patient seen and examined at bedside. Patient is currently sedated and on mechanically ventilation, with ventilator settings at tidal volume 500, FiO2 30%, peep at 5, off of pressors phenylephrine and norepinephrine. 07/01/2025: Patient seen and examined at bedside. Patient is currently sedated and mechanically ventilated. Patient today has fever and elevated WBC, blood culture ordered. Patient is on pressor Levophed 9, patient's HR 150- 160s, order was given of metoprolol IV 5 mg with partial control of the RVR, also digoxin loading dose given. Metoprolol 25 mg PO daily was also placed for tomorrow. 07/02/2025: Patient seen and examined in ICU. Hr is under controlled. Intubated. temperature 99.3 started cefepime and vancomycin. blood culture G + bacteria. 07/03/2025 :Patient seen and examined in the ICU. Patient heart rate is under control, patient is intubated, mechanically ventilated, temperature 100.6. continue cefepime, vancomycin. Repeat blood cultures were ordered.(Staph coagulase negative, could be contaminate). Planning on performing LHC on Thursday07/05/2025, have informed . 07/04/2025: Patient seen and examined in ICU. Patient is mechanically intubated, patient had a fever yesterday night but decreased. Sputum culture showed Gram-negative rods. Discontinued cefepime. Started meropenem, 12.5 metoprolol b.i.d. Repeat blood cultures are negative. Planning on performing LHC on Thursday07/05/2025, have informed . 07/05/25: Patient seen and examined in ICU. Patient is mechanically intubated, patient had Bradycardia overnight for wich metoprlol was held. LHC was done today with 3 stents placed in the LAD. Possible RHC to be done. 07/06/2025: patient seen and examined in ICU. Patient is mechanically ventilated, had a left heart catheterization done yesterday with 3 stents placed in the LAD, Planning to do next procedure in one week to RCA. 07/07/2025: patient seen and examined in ICU. Patient is mechanically ventilated, had a left heart catheterization done yesterday with 3 stents placed in the LAD, CPAP trial done today, failed, we will try again tomorrow. 07/08/2025:patient seen and examined in ICU . on ventilator. CPAP trial failed, become tachypneic. we will try again. Objective vital signs Vital Sign Date Time Temp Pulse Resp B/P (MAP) Pulse Ox O2 Delivery O2 Flow Rate FiO2 07/08/25 14:31 74 18 138/57 (84) 94 07/08/25 13:33 Mechanical Ventilator+ 30 30 07/08/25 12:01 98.9 98.9 07/07/25 20:00 18 Total Intake and Output 07/07/25 07/07/25 07/08/25 15:00 23:00 07:00 Intake Total 384.054 ml 220.261 ml 103.795 ml Output Total 650 ml 370 ml Balance 384.054 ml -429.739 ml -266.205 ml medications Current Medications Medications Dose Ordered Sig/Jesse Route Start Time Stop Time Status Last Admin Dose Admin Atorvastatin Calcium 40 mg HS PO 06/29/25 22:00 07/07/25 22:03 40 MG Norepinephrine Bitartrate 250 ml @ 3.75 mls/hr Q24H IV 06/29/25 06:15 07/05/25 06:45 3.75 MLS/HR Fentanyl Citrate 250 ml @ 2.5 mls/hr Q24H IV 06/29/25 06:15 07/08/25 05:27 10 MLS/HR Aspirin 81 mg DAILY PO 06/30/25 10:00 07/08/25 08:06 81 MG Insulin Human Regular HS SC 06/29/25 22:00 Cancel Insulin Human Regular AC SC 06/29/25 17:00 Cancel Pantoprazole Sodium 40 mg DAILY IV 06/30/25 10:00 07/08/25 08:03 40 MG Clopidogrel Bisulfate 75 mg DAILY PO 06/30/25 10:00 07/08/25 08:06 75 MG Diagnostic Test (Pha) 1 strip IQ4HR 06/29/25 20:00 07/08/25 12:07 1 STRIP Insulin Human Regular IQ4HR SC 06/29/25 20:00 07/08/25 12:08 3 UNITS Dextrose 50 ml UD PRN IV 06/29/25 17:30 Midazolam HCl 100 ml @ 1 mls/hr Q24H IV 06/29/25 18:00 07/06/25 07:25 6 MLS/HR Enoxaparin Sodium 100 mg Q12HR SC 06/30/25 10:00 07/08/25 08:03 100 MG Enteral Nutritional Formula 1,000 ml 45ML/HR GT 06/30/25 17:15 07/01/25 07:29 1,000 ML Acetaminophen 650 mg Q4HP PRN PO 07/01/25 17:00 07/03/25 00:43 650 MG Vancomycin HCl 0 ml @ 0 mls/hr PER PHARMACY IV 07/02/25 13:15 Meropenem 50 ml @ 17 mls/hr Q8HR IV 07/04/25 22:00 07/08/25 12:09 17 MLS/HR Furosemide 20 mg DAILY PO 07/06/25 10:00 07/08/25 08:06 20 MG Vancomycin HCl 250 ml @ 250 mls/hr BID@0900,2100 IV 07/05/25 21:00 07/08/25 08:07 250 MLS/HR Insulin Glargine 12 units HS SC 07/06/25 22:00 07/07/25 22:05 12 UNITS Polyethylene Glycol 17 gm DAILY PO 07/08/25 10:00 07/08/25 08:03 17 GM Metoprolol Succinate 12.5 mg DAILY PO 07/08/25 10:00 Propofol 100 ml @ 3.225 mls/ hr Q24H IV 07/08/25 09:45 07/08/25 12:00 3.225 MLS/HR Examination HEENT: Normocephalic, atraumatic, moist mucous membranes Respiratory/pulmonary: Clear lungs bilaterally, vesicular murmurs present in almost all lung roberts, no associated crackles or wheezes. Cardiovascular: Normal heart sounds S1 and S2 with no associated murmurs Abdomen: Abdomen nondistended, there is no pain to palpation in any of the abdominal quadrants, no palpable masses. Extremities: There is no peripheral edema present at the lower extremities. Bilateral erythematous and ulcerated lesions. Skin: No rashes or pruritus, there is no sacral edema present at this time. laboratory and microbiology Laboratory Tests 07/08/25 02:56 Test 07/08/25 02:56 Range/Units Serum Glucose 222 H 74-106 mg/dL Microbiology Date/Time Source Procedure Growth Status 07/03/25 16:00 Sputum Gram Stain - Final Complete 07/03/25 16:00 Respiratory Culture - Final Pseudomonas aeruginosa Serratia marcescens Complete 07/03/25 09:40 Blood Blood Culture - Final NO GROWTH AFTER 5 DAYS OF INCUBATION. Complete 07/01/25 22:35 Urine - Catheterized Urine Culture - Final Complete 06/29/25 04:30 Nose MRSA Screen - Final Complete Problem List/Assessment/Plan Problem List/Assessment/Plan Neurology Acute metabolic encephalopathy History of CVA-with residual aphasia, right-sided deficit -Sedation/neurological status: Rass score -3 - off pressure Cardiology Cardiac arrest secondary to ventricular arrhythmia (ventricular tachycardia, torsade de pointes) NSTEMI type 1 status post PCI Newly diagnosed coronary artery disease - triple-vessel disease Prolonged QT Paroxysmal atrial fibrillation with RVR Hypertension Dyslipidemia - EKG showed atrial fibrillation with anterior T-wave inversions, prolonged QT - coronary angiography showed severe triple-vessel disease with acutely occluded circumflex status post PCI with 1 drug-eluting stent placed. -ventriculogram showed LVEF of 15% - echocardiography, lvef 20%, moderate LV enlargement, severe end stage HF - avoid QT prolongation medications - Dany Vasc score 7 -currently on vasopressors Levophed, phenylephrine -severe CAD in LAD and RCA, plan to do angiography on Thursday -patient given aspirin, atorvastatin, clopidogrel - ordered 12.5 metoprolol tartrate b.i.d. - LHC done (07/05) with 3 stents placed in LAD. - Next angiogram on Thursday Respiratory Acute hypoxic respiratory failure likely due to cardiac arrest Possible Aspiration Pneumonia -ventilator settings: VT 500, respiratory rate 17, FiO2 30 %, PEEP 5 -chest x-ray: Similar bilateral inferior graded opacities, likely a combination of airspace disease and pleural effusion. Genitourinary/kidney Acute kidney injury likely due to be VMN -medication: Given Lasix 20 mg once -strict I&Os -nephrotoxic drugs Endocrine Uncontrolled diabetes mellitus, HbA1c 10.6 - on insulin sliding scale Infectious Septic shock due to Aspiration pneumonia -urine culture preliminary negative -blood cultures ordered, as WBC elevated and fever present -blood culture showed positive staph coagulase negative. - repeat blood cultures negative - Respiratory culture (07/03) - Pseudomonas aeruginosa - IV vancomycin, meropenem started(07/04) Transaminitis - monitor labs Obesity BMI 33.0 Lines / Tubes / Devices Airway: Intubated via ETT on 06/29 Vascular Access: Central line 06/29 Drips: Fentanyl, midazolam, norepinephrine, phenylephrine, Versed Prophylaxis / Supportive Care DVT Prophylaxis: Lovenox. GI Prophylaxis: Protonix. Failed cpap trial today. plan for cpap trial in am. Goals of care discussed with the patient family for more than 29 minutes: Full code state Critical care time spent excluding procedures 80 minutes Plan discussed with Dr. Mason and RN Plan discussed with: Other (RN) My Orders My Orders Orders - ANIBAL NAGEL RESIDENT Procedure Category Date Status Time Propofol (Diprivan) PHA 07/08/25 In Process 09:45 Dietary Evaluation Review Comments: 1. Protein needs based on 1.2-1.5g/protein/kg IBW d/t low GFR 2. While being intubated, offer TF Vital HP @45ml/hr, in 24 hr, Pt will receive 94g protein, 1080lkcal 903ml free water, meeting pts needs at 97% protein and 100% energy. 3. Consider TPN to meet pt's needs if Pt does not tolerate TF well. 4. Reassess when pt extubated, advance to CCHO-60 PO diet after passing a E [employer] DEVELOPER evluation. Expected Outcomes/Goals: off intubation, advance to CCHO-60 Cardiac diet, gradual wt loss ANIBAL NAGEL RESIDENT Jul 08, 2025 14:48
[2025-07-08 21:43] LABS: Potassium 3.5 mmol/L (3.5-5.1)
[2025-07-08 21:50] LABS: Magnesium 1.8 mg/dL (1.6-2.6)
--- NOTE | 2025-07-08 22:26 | DVHPN2 ---
Subjective DOS: 07/08/2025 Patient seen and examined at bedside. Intubated on mechanical ventilator. Overnight events reviewed. Changes from previous H/P or p: No Changes Objective Vitals Vital Signs Date Time Temp Pulse Resp B/P (MAP) Pulse Ox O2 Delivery O2 Flow Rate FiO2 07/08/25 22:09 93 18 67/32 (44) 97 30 07/08/25 20:01 99.3 99.3 07/08/25 18:02 Mechanical Ventilator+ 07/07/25 20:00 18 Intake/Output Intake and Output 07/08/25 07:00 Intake Total 708.110 ml Output Total 1020 ml Balance -311.890 ml Intake Oral 50 ml IV Total 658.110 ml Output Urine Total 1020 ml Exam Gen.: Patient lying in bed in medical ICU. Intubated on mechanical ventilator. Head: Normocephalic, atraumatic. Eyes: PERRLA. Ears: Normal external anatomy. Throat: Endotracheal tube and orogastric tube in place. Neck: Supple, trachea midline. Chest: Transmitted breath sounds bilaterally. Decreased air entry bilaterally. No wheezing. Bibasilar crackles. Cardiovascular: Positive S1, positive S2. Regular rate and rhythm. Abdomen: Positive bowel sounds in all 4 quadrants. Soft, nontender, nondistended. : Daley in place. Normal external genitalia. Rectal: Deferred. Skin: Warm, dry. Intact. Extremities: 2+ radial pulses bilaterally. No lower extremity edema. Neuro: Off sedation Medications Current Medications Medications Dose Ordered Sig/Jesse Route Start Time Stop Time Status Last Admin Dose Admin Atorvastatin Calcium 40 mg HS PO 06/29/25 22:00 07/08/25 22:10 40 MG Norepinephrine Bitartrate 250 ml @ 3.75 mls/hr Q24H IV 06/29/25 06:15 07/05/25 06:45 3.75 MLS/HR Fentanyl Citrate 250 ml @ 2.5 mls/hr Q24H IV 06/29/25 06:15 07/08/25 05:27 10 MLS/HR Aspirin 81 mg DAILY PO 06/30/25 10:00 07/08/25 08:06 81 MG Insulin Human Regular HS SC 06/29/25 22:00 Cancel Insulin Human Regular AC SC 06/29/25 17:00 Cancel Pantoprazole Sodium 40 mg DAILY IV 06/30/25 10:00 07/08/25 08:03 40 MG Clopidogrel Bisulfate 75 mg DAILY PO 06/30/25 10:00 07/08/25 08:06 75 MG Diagnostic Test (Pha) 1 strip IQ4HR 06/29/25 20:00 07/08/25 20:20 1 STRIP Insulin Human Regular IQ4HR SC 06/29/25 20:00 07/08/25 20:19 3 UNITS Dextrose 50 ml UD PRN IV 06/29/25 17:30 Midazolam HCl 100 ml @ 1 mls/hr Q24H IV 06/29/25 18:00 07/06/25 07:25 6 MLS/HR Enoxaparin Sodium 100 mg Q12HR SC 06/30/25 10:00 07/08/25 22:10 100 MG Enteral Nutritional Formula 1,000 ml 45ML/HR GT 06/30/25 17:15 07/01/25 07:29 1,000 ML Acetaminophen 650 mg Q4HP PRN PO 07/01/25 17:00 07/03/25 00:43 650 MG Vancomycin HCl 0 ml @ 0 mls/hr PER PHARMACY IV 07/02/25 13:15 Meropenem 50 ml @ 17 mls/hr Q8HR IV 07/04/25 22:00 07/08/25 22:08 17 MLS/HR Furosemide 20 mg DAILY PO 07/06/25 10:00 07/08/25 08:06 20 MG Vancomycin HCl 250 ml @ 250 mls/hr BID@0900,2100 IV 07/05/25 21:00 07/08/25 20:56 250 MLS/HR Insulin Glargine 12 units HS SC 07/06/25 22:00 07/08/25 22:13 12 UNITS Polyethylene Glycol 17 gm DAILY PO 07/08/25 10:00 07/08/25 08:03 17 GM Metoprolol Succinate 12.5 mg DAILY PO 07/08/25 10:00 Propofol 100 ml @ 3.225 mls/ hr Q24H IV 07/08/25 09:45 07/08/25 20:56 22.575 MLS/HR Potassium Chloride 100 ml @ 50 mls/hr Q2H IV 07/08/25 22:00 07/09/25 03:59 Magnesium Sulfate/ Dextrose 100 ml @ 100 mls/hr Q1HR IV 07/08/25 22:00 07/08/25 23:59 Laboratory Results Laboratory Tests 07/08/25 02:56 07/08/25 21:16 Chemistry Test 07/08/25 02:56 07/08/25 21:16 Albumin 2.7 g/dL (3.2-4.8) L Calcium Level 7.9 mg/dL (8.7-10.4) L Magnesium Level 2.2 mg/dL (1.6-2.6) 1.8 mg/dL (1.6-2.6) Total Protein 5.5 g/dL (5.7-8.2) L LFT Test 07/08/25 02:56 Alanine Aminotransferase (ALT) 28 U/L (7-40) Alkaline Phosphatase 210 U/L (46-116) H Aspartate Amino Transferase (AST) 21 U/L (13-40) Total Bilirubin 0.6 mg/dL (0.2-1.0) Urinalysis Test 06/28/25 17:12 Urine Color Colorless (Yellow) Urine Clarity Clear (Clear) Urine pH 5.0 (5.0-9.0) Urine Specific [place] 1.005 (1.001-1.035) Urine Protein Negative (Negative) Urine Ketones Negative (Negative) Urine Blood Negative /uL (Negative) Urine Nitrite Negative (Negative) Urine Bilirubin Negative (Negative) Urine Urobilinogen Normal mg/dL (Negative) Urine Leukocyte Esterase Negative /uL (Negative) Urine RBC 1 /hpf (0 - 3) Urine Microscopic WBC < 1 /HPF (0-3) Urine Squamous Epithelial Cells None seen /hpf (<5) Urine Bacteria None seen /hpf (None Seen) Urine Glucose 2+ mg/dL (Normal) H Blood Gas Results Test 07/08/25 06:52 Arterial Blood pH 7.500 (7.350-7.450) FiO2 % 30.0 Microbiology Microbiology Date/Time Source Procedure Growth Status 07/03/25 16:00 Sputum Gram Stain - Final Complete 07/03/25 16:00 Respiratory Culture - Final Pseudomonas aeruginosa Serratia marcescens Complete 07/03/25 09:40 Blood Blood Culture - Final NO GROWTH AFTER 5 DAYS OF INCUBATION. Complete 07/01/25 22:35 Urine - Catheterized Urine Culture - Final Complete 06/29/25 04:30 Nose MRSA Screen - Final Complete Assessment/Plan Assessment/Plan Impression: Acute hypoxic respiratory failure On mechanical ventilator Acute metabolic encephalopathy Septic shock Aspiration pneumonia Non-ST elevation TN Paroxysmal atrial fibrillation w/ RVR History of CVA Acute kidney injury Obesity Events: Patient seen and examined in ICU. Patient is mechanically ventilated. On AC mode; RR 18, VT 500, PEEP 5, FiO2 30% Taper FIO2 as tolerated CXR image and report reviewed. Devices in place. Stable bilateral pleural effusions and bibasilar pulmonary airspace disease. Cardiomegaly ABG reviewed, notable for alkalemia. On Precedex drip Fentanyl drip for analgesia Off Levophed, hemodynamically stable. Patient underwent left heart catheterization 07/06/25 with 3 stents placed in the LAD. Cardiology recommendations appreciated. CPAP trial done today, failed, we will try again tomorrow. Labs and imaging reviewed. Plan: s/p intubation on mechanical ventilator. On AC mode; RR 18, VT 500, PEEP 5, FiO2 30% Titrate FIO2 to keep O2 saturation above 90%. VAP bundle. Daily ABG and CXR while intubated Continue bronchodilators/Mucomyst Continue antibiotics. Follow up cultures. Pressors as necessary for hemodynamic support Titrate to keep mean arterial pressure greater than 65 mmHg. Accu-Cheks, ISS Diurese with Lasix as tolerated Monitor renal function Monitor electrolytes. Supplement as necessary. Monitor ins and outs. Maintain euvolemia. GI prophylaxis. DVT prophylaxis. Recommend diet and lifestyle modifications for weight reduction Obesity complicates all care Prognosis: Poor given patient's multiple co-morbidities. Condition: Critical Rest of plan per hospitalist and other consultants. A total of 35 minutes of critical care time was spent reviewing the patient record, examining the patient, making a diagnostic and therapeutic plan, discussing this plan with the medical personnel, following up on diagnostic studies and following the patient for clinical stability excluding any and all procedures. At least 50% of this time was spent in direct, [id number] contact. Thank you, , for allowing me to participate in this patient's care. Further recommendations will depend on the patient's clinical course. Please do not hesitate to contact me if you have any questions or concerns. This medical document was created using an electronic medical record system with [employer]! dictation system. Although these documentations are being carefully reviewed, there may still be some phonetic and typographical changes. The errors are purely typographical, due to imperfection on the software program, and do not reflect any compromise in the patient's medical care. Plan discussed with: Other (NAM Aguiar) Visit Coding Pulmonary Billing Provider: ENRIQUE ODONNELL MD Date of Service if different f: Jul 08, 2025 Common Visit Codes: [id number] INP/OBS CARE(HIGH), [id number] CARE 30-74 MIN ENRIQUE ODONNELL MD Jul 08, 2025 22:26
[2025-07-08] MEDS: MAGNESIUM SULFATE 1GM/100ML 100 ML IV SCH (23:00)
[2025-07-08] MEDS: POTASSIUM CHL 20MEQ/100ML 100 ML IV SCH (23:01)
[2025-07-09] VITALS (108 sets, daily range): BP systolic 68–170; BP diastolic 26–86; PULSE 56–147; RESP 14–33; TEMP 97.7–99.9; O2SAT 95–100
[2025-07-09 04:39] LABS: Hematocrit 34.4 % (41.0-53.0); Hemoglobin 10.8 g/dL (13.5-17.5); Mean Corpuscular Hemoglobin 27.1 pg (28.0-32.0); Mean Corpuscular Volume 86.0 fL (80.0-100.0); Nucleated Red Blood Cells % 0.1 %
[2025-07-09 04:57] LABS: Anion Gap 12 (5-15); Carbon Dioxide 26 mmol/L (20-31); Chloride 105 mmol/L (98-107); Potassium 4.5 mmol/L (3.5-5.1); Sodium 143 mmol/L (136-145)
[2025-07-09 05:03] LABS: BUN/Creatinine Ratio 30.0 (10.0-20.0)
[2025-07-09 05:18] LABS: Blood Urea Nitrogen 33 mg/dL (9-23); Calcium 7.7 mg/dL (8.7-10.4); Glucose 192 mg/dL (74-106)
--- NOTE | 2025-07-09 05:24 | DVH ---
CHEST RADIOGRAPH Indication: on vent Technique: Single frontal view of the chest was obtained Comparison: XY CHEST XRAY 1 VIEW on DOS: 07/08/25, XY CHEST XRAY 1 VIEW on DOS: 07/07/25, XY CHEST XRA Y 1 VIEW on DOS: 07/06/25 IMPRESSION: Support lines and tubes appear unchanged in satisfactory position. There is cardiomegaly. Small bila teral pleural effusions, right greater than left appear similar to prior examination with mild pulmon iveth vascular congestion. No significant interval change. No pneumothorax.
[2025-07-09 07:16] LABS: Base Excess 0.5 mmol/L (-2.0-3.0)
[2025-07-09] MEDS: LACTULOSE 20Gm/30ML SOLN PO ONE (11:40)
--- NOTE | 2025-07-09 15:01 | DVHPNRES ---
Progress Note Date Seen: Jul 09, 2025 Resident Creating Document: CYNTHIA LOVE RESIDENT Medical Necessity Reason Pt with a Central, PICC or Fol: Yes The following are medically ne: Central Line, Lau Catheter Reason for lau catheter: Strict I&O Subjective Review of Systems Patient is a 74-year-old male with past medical history of hypertension, diabetes type 2, dyslipidemia, paroxysmal atrial fibrillation, CVA in 2019, presented to the ED with chief complaints of 3 days of palpitations, shortness of breath before his admission. On arrival to the ED patient was found to have atrial fibrillation with RVR and was started on a diltiazem drip to control his heart rate. Patient progressed to have cardiac arrest secondary to ventricular arrhythmias possibly ventricular tachycardia or torsades de Pointe. Patient required CPR and ACLS maneuvers for 8 minutes followed by endotracheal intubation, obtained by ROSC. Patient was initially on amiodarone drip which was later discontinued after magnesium was given for QT prolongation. Due to clinical status obtained history of present illness and past medical history from EMR and who is at bedside. Could not obtain review of systems. Cardiology consulted for elevated troponins. Past medical history: Hypertension, dyslipidemia, diabetes, paroxysmal atrial fibrillation diagnosed in 2017 (chads Vasc 7), 2019 CVA Past surgical history: Appendectomy Family history: Two brothers had heart disease requiring CABG at the age of 40 and 50 respectively, brother had lung cancer, mother had breast cancer Social history: with . Ex tobacco abuse (eight pack-year history of smoking) quit 30 years ago. Denies current tobacco, alcohol and other drug abuse Allergies: Denies Home medication: Pradaxa 150 mg p.o. daily, atorvastatin 40 mg p.o. daily, hydrochlorothiazide 12.5 mg p.o. daily, lisinopril 20 mg p.o. daily, glipizide, metformin a 1000 mg p.o. b.i.d., metoprolol (he quit taking for four months since it made him tired). 06/30/25: Patient seen and examined at bedside. Patient is currently sedated and on mechanically ventilation, with ventilator settings at tidal volume 500, FiO2 30%, peep at 5, off of pressors phenylephrine and norepinephrine. 07/01/2025: Patient seen and examined at bedside. Patient is currently sedated and mechanically ventilated. Patient today has fever and elevated WBC, blood culture ordered. Patient is on pressor Levophed 9, patient's HR 150- 160s, order was given of metoprolol IV 5 mg with partial control of the RVR, also digoxin loading dose given. Metoprolol 25 mg PO daily was also placed for tomorrow. 07/02/2025: Patient seen and examined in ICU. Hr is under controlled. Intubated. temperature 99.3 started cefepime and vancomycin. blood culture G + bacteria. 07/03/2025 :Patient seen and examined in the ICU. Patient heart rate is under control, patient is intubated, mechanically ventilated, temperature 100.6. continue cefepime, vancomycin. Repeat blood cultures were ordered.(Staph coagulase negative, could be contaminate). Planning on performing LHC on Thursday07/05/2025, have informed . 07/04/2025: Patient seen and examined in ICU. Patient is mechanically intubated, patient had a fever yesterday night but decreased. Sputum culture showed Gram-negative rods. Discontinued cefepime. Started meropenem, 12.5 metoprolol b.i.d. Repeat blood cultures are negative. Planning on performing LHC on Thursday07/05/2025, have informed . 07/05/25: Patient seen and examined in ICU. Patient is mechanically intubated, patient had Bradycardia overnight for wich metoprlol was held. LHC was done today with 3 stents placed in the LAD. Possible RHC to be done. 07/06/2025: patient seen and examined in ICU. Patient is mechanically ventilated, had a left heart catheterization done yesterday with 3 stents placed in the LAD, Planning to do next procedure in one week to RCA. 07/07/2025: patient seen and examined in ICU. Patient is mechanically ventilated, had a left heart catheterization done yesterday with 3 stents placed in the LAD, CPAP trial done today, failed, we will try again tomorrow. 07/08/2025:patient seen and examined in ICU . on ventilator. CPAP trial failed, become tachypneic. we will try again. 07/09/2025: Patient seen and examined in ICU, on ventilator, overnight patient had AFib with RVR, so CPAP trial was deferred for today. We will try again tomorrow. discontinue metoprolol, patient's last bowel movement was on the so lactulose was given. Patient's WBC is 17.1. Cardiology following. Patient is to have a heart catheterization on Thursday. Objective vital signs Vital Sign Date Time Temp Pulse Resp B/P (MAP) Pulse Ox O2 Delivery O2 Flow Rate FiO2 07/09/25 14:17 58 07/09/25 14:17 30 07/09/25 14:17 18 99 Mechanical Ventilator+ 07/09/25 14:15 98.2 135/54 (81) 208.8 07/07/25 20:00 18 Total Intake and Output 07/08/25 07/08/25 07/09/25 15:00 23:00 07:00 Intake Total 428.611 ml 419.325 ml 440.475 ml Output Total 400 ml 475 ml Balance 428.611 ml 19.325 ml -34.525 ml medications Current Medications Medications Dose Ordered Sig/Jesse Route Start Time Stop Time Status Last Admin Dose Admin Atorvastatin Calcium 40 mg HS PO 06/29/25 22:00 07/08/25 22:10 40 MG Norepinephrine Bitartrate 250 ml @ 3.75 mls/hr Q24H IV 06/29/25 06:15 07/05/25 06:45 3.75 MLS/HR Fentanyl Citrate 250 ml @ 2.5 mls/hr Q24H IV 06/29/25 06:15 07/09/25 03:53 10 MLS/HR Aspirin 81 mg DAILY PO 06/30/25 10:00 07/09/25 07:41 81 MG Insulin Human Regular HS SC 06/29/25 22:00 Cancel Insulin Human Regular AC SC 06/29/25 17:00 Cancel Pantoprazole Sodium 40 mg DAILY IV 06/30/25 10:00 07/09/25 07:41 40 MG Clopidogrel Bisulfate 75 mg DAILY PO 06/30/25 10:00 07/09/25 07:41 75 MG Diagnostic Test (Pha) 1 strip IQ4HR 06/29/25 20:00 07/09/25 11:40 1 STRIP Insulin Human Regular IQ4HR SC 06/29/25 20:00 07/09/25 12:01 6 UNITS Dextrose 50 ml UD PRN IV 06/29/25 17:30 Midazolam HCl 100 ml @ 1 mls/hr Q24H IV 06/29/25 18:00 07/06/25 07:25 6 MLS/HR Enoxaparin Sodium 100 mg Q12HR SC 06/30/25 10:00 07/09/25 07:42 100 MG Enteral Nutritional Formula 1,000 ml 45ML/HR GT 06/30/25 17:15 07/01/25 07:29 1,000 ML Acetaminophen 650 mg Q4HP PRN PO 07/01/25 17:00 07/03/25 00:43 650 MG Vancomycin HCl 0 ml @ 0 mls/hr PER PHARMACY IV 07/02/25 13:15 Meropenem 50 ml @ 17 mls/hr Q8HR IV 07/04/25 22:00 07/09/25 11:53 17 MLS/HR Furosemide 20 mg DAILY PO 07/06/25 10:00 07/09/25 07:42 20 MG Vancomycin HCl 250 ml @ 250 mls/hr BID@0900,2100 IV 07/05/25 21:00 07/09/25 07:44 250 MLS/HR Insulin Glargine 12 units HS SC 07/06/25 22:00 07/08/25 22:13 12 UNITS Polyethylene Glycol 17 gm DAILY PO 07/08/25 10:00 07/09/25 07:42 17 GM Propofol 100 ml @ 3.225 mls/ hr Q24H IV 07/08/25 09:45 07/09/25 14:24 6.45 MLS/HR Examination HEENT: Normocephalic, atraumatic, moist mucous membranes Respiratory/pulmonary: Clear lungs bilaterally, vesicular murmurs present in almost all lung roberts, no associated crackles or wheezes. Cardiovascular: Normal heart sounds S1 and S2 with no associated murmurs Abdomen: Abdomen nondistended, there is no pain to palpation in any of the abdominal quadrants, no palpable masses. Extremities: There is no peripheral edema present at the lower extremities. Bilateral erythematous and ulcerated lesions. Skin: No rashes or pruritus, there is no sacral edema present at this time. laboratory and microbiology Laboratory Tests 07/09/25 02:44 Test 07/09/25 02:44 Range/Units Serum Glucose 192 H 74-106 mg/dL Microbiology Date/Time Source Procedure Growth Status 07/03/25 16:00 Sputum Gram Stain - Final Complete 07/03/25 16:00 Respiratory Culture - Final Pseudomonas aeruginosa Serratia marcescens Complete 07/03/25 09:40 Blood Blood Culture - Final NO GROWTH AFTER 5 DAYS OF INCUBATION. Complete 07/01/25 22:35 Urine - Catheterized Urine Culture - Final Complete 06/29/25 04:30 Nose MRSA Screen - Final Complete Problem List/Assessment/Plan Problem List/Assessment/Plan Neurology Acute metabolic encephalopathy History of CVA-with residual aphasia, right-sided deficit -Sedation/neurological status: Rass score -3 - off of Levophed, phenylephrine Cardiology Cardiac arrest secondary to ventricular arrhythmia (ventricular tachycardia, torsade de pointes) NSTEMI type 1 status post PCI Newly diagnosed coronary artery disease - triple-vessel disease Prolonged QT Paroxysmal atrial fibrillation with RVR Hypertension Dyslipidemia - EKG showed atrial fibrillation with anterior T-wave inversions, prolonged QT - coronary angiography showed severe triple-vessel disease with acutely occluded circumflex status post PCI with 1 drug-eluting stent placed. -ventriculogram showed LVEF of 15% - ordered echocardiography, lvef 20%, moderate LV enlargement, severe end stage HF - avoid QT prolongation medications - Dany Vasc score 7 -currently on vasopressors Levophed, phenylephrine -severe CAD in LAD and RCA, plan to do angiography on Thursday -patient given aspirin, atorvastatin, clopidogrel - ordered 12.5 metoprolol tartrate b.i.d. - LHC done (07/05) with 3 stents placed in LAD. - Planning on new stage procedure to RCA in 1 week. Repeat echocardiogram in 1 week Respiratory Acute hypoxic respiratory failure likely due to cardiac arrest Possible Aspiration Pneumonia -ventilator settings: VT 500, respiratory rate 17, FiO2 30 %, PEEP 5 -chest x-ray: Similar bilateral inferior graded opacities, likely a combination of airspace disease and pleural effusion. Genitourinary/kidney Acute kidney injury likely due to be VMN -medication: Given Lasix 20 mg once -strict I&Os -nephrotoxic drugs Endocrine Uncontrolled diabetes mellitus, HbA1c 10.6 - on insulin sliding scale Infectious Septic shock due to Aspiration pneumonia -urine culture preliminary negative -blood cultures ordered, as WBC elevated and fever present -blood culture showed positive staph coagulase negative. - repeat blood cultures negative - Respiratory culture (07/03) - Pseudomonas aeruginosa - IV vancomycin, meropenem started(07/04) Transaminitis - monitor labs Obesity BMI 33.0 Lines / Tubes / Devices Airway: Intubated via ETT on 06/29 Vascular Access: Central line 06/29 Drips: Fentanyl, midazolam, norepinephrine, phenylephrine, Versed Prophylaxis / Supportive Care DVT Prophylaxis: Lovenox. GI Prophylaxis: Protonix. Goals of care discussed with the patient family for more than 29 minutes: Full code state Patient care updated to (Myrna), addressed all concerns. Critical care time spent excluding procedures 85 minutes Plan discussed with Dr. Mason and RN Plan discussed with: Spouse Dietary Evaluation Review Comments: 1. Protein needs based on 1.2-1.5g/protein/kg IBW d/t low GFR 2. While being intubated, offer TF Vital HP @45ml/hr, in 24 hr, Pt will receive 94g protein, 1080lkcal 903ml free water, meeting pts needs at 97% protein and 100% energy. 3. Consider TPN to meet pt's needs if Pt does not tolerate TF well. 4. Reassess when pt extubated, advance to CCHO-60 PO diet after passing a FUR TAILOR evluation. Expected Outcomes/Goals: off intubation, advance to CCHO-60 Cardiac diet, gradual wt loss CYNTHIA LOVE RESIDENT Jul 09, 2025 15:01
--- NOTE | 2025-07-09 23:51 | DVHPN2 ---
Subjective DOS: 07/09/2025 Patient seen and examined at bedside. Sedated, intubated on mechanical ventilator. Overnight events reviewed. Changes from previous H/P or p: No Changes Objective Vitals Vital Signs Date Time Temp Pulse Resp B/P (MAP) Pulse Ox O2 Delivery O2 Flow Rate FiO2 07/09/25 23:15 99.9 79 18 87/48 (61) 99 211.8 07/09/25 22:28 30 07/09/25 22:00 Mechanical Ventilator+ 07/07/25 20:00 18 Intake/Output Intake and Output 07/09/25 07:00 Intake Total 1288.411 ml Output Total 875 ml Balance 413.411 ml Intake Oral 140 ml IV Total 928.411 ml Tube Feeding 220 ml Output Urine Total 875 ml Exam Gen.: Patient lying in bed in medical ICU. Sedated, intubated on mechanical ventilator. Head: Normocephalic, atraumatic. Eyes: PERRLA. Ears: Normal external anatomy. Throat: Endotracheal tube and orogastric tube in place. Neck: Supple, trachea midline. Chest: Transmitted breath sounds bilaterally. Decreased air entry bilaterally. No wheezing. Bibasilar crackles. Cardiovascular: Positive S1, positive S2. Regular rate and rhythm. Abdomen: Positive bowel sounds in all 4 quadrants. Soft, nontender, nondistended. : Daley in place. Normal external genitalia. Rectal: Deferred. Skin: Warm, dry. Intact. Extremities: 2+ radial pulses bilaterally. No lower extremity edema. Neuro: Sedated Medications Current Medications Medications Dose Ordered Sig/Jesse Route Start Time Stop Time Status Last Admin Dose Admin Atorvastatin Calcium 40 mg HS PO 06/29/25 22:00 07/09/25 22:01 40 MG Norepinephrine Bitartrate 250 ml @ 3.75 mls/hr Q24H IV 06/29/25 06:15 07/05/25 06:45 3.75 MLS/HR Fentanyl Citrate 250 ml @ 2.5 mls/hr Q24H IV 06/29/25 06:15 07/09/25 23:01 22.5 MLS/HR Aspirin 81 mg DAILY PO 06/30/25 10:00 07/09/25 07:41 81 MG Insulin Human Regular HS SC 06/29/25 22:00 Cancel Insulin Human Regular AC SC 06/29/25 17:00 Cancel Pantoprazole Sodium 40 mg DAILY IV 06/30/25 10:00 07/09/25 07:41 40 MG Clopidogrel Bisulfate 75 mg DAILY PO 06/30/25 10:00 07/09/25 07:41 75 MG Diagnostic Test (Pha) 1 strip IQ4HR 06/29/25 20:00 07/09/25 20:09 1 STRIP Insulin Human Regular IQ4HR SC 06/29/25 20:00 07/09/25 20:11 3 UNITS Dextrose 50 ml UD PRN IV 06/29/25 17:30 Midazolam HCl 100 ml @ 1 mls/hr Q24H IV 06/29/25 18:00 07/09/25 20:00 1 MLS/HR Enoxaparin Sodium 100 mg Q12HR SC 06/30/25 10:00 07/09/25 22:01 100 MG Enteral Nutritional Formula 1,000 ml 45ML/HR GT 06/30/25 17:15 07/01/25 07:29 1,000 ML Acetaminophen 650 mg Q4HP PRN PO 07/01/25 17:00 07/03/25 00:43 650 MG Vancomycin HCl 0 ml @ 0 mls/hr PER PHARMACY IV 07/02/25 13:15 Meropenem 50 ml @ 17 mls/hr Q8HR IV 07/04/25 22:00 07/09/25 22:00 17 MLS/HR Furosemide 20 mg DAILY PO 07/06/25 10:00 07/09/25 07:42 20 MG Vancomycin HCl 250 ml @ 250 mls/hr BID@0900,2100 IV 07/05/25 21:00 07/09/25 07:44 250 MLS/HR Insulin Glargine 12 units HS SC 07/06/25 22:00 07/09/25 22:03 12 UNITS Polyethylene Glycol 17 gm DAILY PO 07/08/25 10:00 07/09/25 07:42 17 GM Propofol 100 ml @ 3.225 mls/ hr Q24H IV 07/08/25 09:45 07/09/25 23:03 9.675 MLS/HR Laboratory Results Laboratory Tests 07/09/25 02:44 Chemistry Test 07/09/25 02:44 Calcium Level 7.7 mg/dL (8.7-10.4) L Magnesium Level 2.6 mg/dL (1.6-2.6) Urinalysis Test 06/28/25 17:12 Urine Color Colorless (Yellow) Urine Clarity Clear (Clear) Urine pH 5.0 (5.0-9.0) Urine Specific [place] 1.005 (1.001-1.035) Urine Protein Negative (Negative) Urine Ketones Negative (Negative) Urine Blood Negative /uL (Negative) Urine Nitrite Negative (Negative) Urine Bilirubin Negative (Negative) Urine Urobilinogen Normal mg/dL (Negative) Urine Leukocyte Esterase Negative /uL (Negative) Urine RBC 1 /hpf (0 - 3) Urine Microscopic WBC < 1 /HPF (0-3) Urine Squamous Epithelial Cells None seen /hpf (<5) Urine Bacteria None seen /hpf (None Seen) Urine Glucose 2+ mg/dL (Normal) H Blood Gas Results Test 07/09/25 07:00 Arterial Blood pH 7.458 (7.350-7.450) FiO2 % 30.0 Microbiology Microbiology Date/Time Source Procedure Growth Status 07/03/25 16:00 Sputum Gram Stain - Final Complete 07/03/25 16:00 Respiratory Culture - Final Pseudomonas aeruginosa Serratia marcescens Complete 07/03/25 09:40 Blood Blood Culture - Final NO GROWTH AFTER 5 DAYS OF INCUBATION. Complete 07/01/25 22:35 Urine - Catheterized Urine Culture - Final Complete 06/29/25 04:30 Nose MRSA Screen - Final Complete Assessment/Plan Assessment/Plan Impression: Acute hypoxic respiratory failure On mechanical ventilator Acute metabolic encephalopathy Septic shock Aspiration pneumonia Non-ST elevation OR Paroxysmal atrial fibrillation w/ RVR History of CVA Acute kidney injury Obesity Events: Patient seen and examined in ICU. Patient is mechanically ventilated. On AC mode; RR 18, VT 500, PEEP 5, FiO2 30% Taper FIO2 as tolerated CXR image and report reviewed. Devices in place. Cardiomegaly. Small bilateral pleural effusions, right greater than left appear similar to prior examination with mild pulmonary vascular congestion. ABG reviewed, notable for alkalemia. Sedated on Propofol On Precedex drip Fentanyl drip for analgesia Pressors for hemodynamic support On Levophed 4 mcg/min Titrate to keep mean arterial pressure greater than 65 mmHg. Patient underwent left heart catheterization 07/06/25 with 3 stents placed in the LAD. Stopped metoprolol due to bradycardia AFib with RVR Cardiology recommendations appreciated Continue bronchodilators/Mucomyst Continue antibiotics. Sputum cx grew Pseudomonas aeruginosa and Serratia marcescens WBC trended up - monitor No fevers. No BMs since 06/28/25 - started lactulose. Overnight, did not tolerated CPAP trial Updated at bedside. Labs and imaging reviewed. Plan: s/p intubation on mechanical ventilator. On AC mode; RR 18, VT 500, PEEP 5, FiO2 30% Titrate FIO2 to keep O2 saturation above 90%. VAP bundle. Daily ABG and CXR while intubated Continue bronchodilators/Mucomyst Continue antibiotics. Follow up cultures. Pressors as necessary for hemodynamic support Titrate to keep mean arterial pressure greater than 65 mmHg. Accu-Cheks, ISS Diurese with Lasix as tolerated Monitor renal function Monitor electrolytes. Supplement as necessary. Monitor ins and outs. Maintain euvolemia. GI prophylaxis. DVT prophylaxis. Recommend diet and lifestyle modifications for weight reduction Obesity complicates all care Prognosis: Poor given patient's multiple co-morbidities. Condition: Critical Rest of plan per hospitalist and other consultants. A total of 35 minutes of critical care time was spent reviewing the patient record, examining the patient, making a diagnostic and therapeutic plan, discussing this plan with the medical personnel, following up on diagnostic studies and following the patient for clinical stability excluding any and all procedures. At least 50% of this time was spent in direct, [id number] contact. Thank you, , for allowing me to participate in this patient's care. Further recommendations will depend on the patient's clinical course. Please do not hesitate to contact me if you have any questions or concerns. This medical document was created using an electronic medical record system with [employer] dictation system. Although these documentations are being carefully reviewed, there may still be some phonetic and typographical changes. The errors are purely typographical, due to imperfection on the software program, and do not reflect any compromise in the patient's medical care. Plan discussed with: Other (NAM Aguiar) Visit Coding Pulmonary Billing Provider: ENRIQUE ODONNELL MD Date of Service if different f: Jul 09, 2025 Common Visit Codes: [id number] INP/OBS CARE(HIGH), [id number] CARE 30-74 MIN ENRIQUE ODONNELL MD Jul 09, 2025 23:51
[2025-07-10] VITALS (103 sets, daily range): BP systolic 72–153; BP diastolic 38–71; PULSE 76–156; RESP 14–28; TEMP 98.4–100.2; O2SAT 95–100
[2025-07-10 03:38] LABS: Hematocrit 27.0 % (41.0-53.0); Hemoglobin 9.2 g/dL (13.5-17.5); Mean Corpuscular Hemoglobin 27.6 pg (28.0-32.0); Mean Corpuscular Volume 81.4 fL (80.0-100.0); Nucleated Red Blood Cells % 0.0 %
[2025-07-10 04:17] LABS: Alanine Aminotransferase 16 U/L (7-40); Anion Gap 9 (5-15); BUN/Creatinine Ratio 31.2 (10.0-20.0); Bilirubin, Total 0.6 mg/dL (0.2-1.0); Carbon Dioxide 28 mmol/L (20-31); Magnesium 2.3 mg/dL (1.6-2.6); Potassium 3.7 mmol/L (3.5-5.1); Sodium 144 mmol/L (136-145)
[2025-07-10 04:32] LABS: Albumin 2.6 g/dL (3.2-4.8); Alkaline Phosphatase 134 U/L (46-116); Blood Urea Nitrogen 24 mg/dL (9-23); Calcium 7.7 mg/dL (8.7-10.4); Chloride 107 mmol/L (98-107); Glucose 140 mg/dL (74-106); Total Protein 5.7 g/dL (5.7-8.2)
--- NOTE | 2025-07-10 05:07 | DVH ---
CHEST RADIOGRAPH Indication: on vent Technique: Single frontal view of the chest was obtained COMPARISON: XY CHEST XRAY 1 VIEW on DOS: 07/09/25, XY CHEST XRAY 1 VIEW on DOS: 07/08/25, XY CHEST XRAY 1 VIEW on DOS: 07/07/25, XY CHEST XRAY 1 VIEW on DOS: 07/06/25, XY CHEST XRAY 1 VIEW on DOS: 5 FINDINGS: Lines and Tubes: Endotracheal tube, enteric catheter and right PICC in satisfactory position. Lungs: Airspace disease. Pleura: No effusion. No pneumothorax. Cardiomediastinal contours: Unchanged cardiomegaly. Bones: Unremarkable IMPRESSION: Lines and tubes in satisfactory position. No significant interval change.
--- NOTE | 2025-07-10 07:37 | ECG ---
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
[2025-07-10 10:50] LABS: Base Excess 1.8 mmol/L (-2.0-3.0)
[2025-07-10] MEDS: LACTULOSE 20Gm/30ML SOLN PO ONE (12:50)
--- NOTE | 2025-07-10 13:52 | DVHPNRES ---
Progress Note Date Seen: Jul 10, 2025 Resident Creating Document: JOSELYN STEIN RESIDENT Medical Necessity Reason Pt with a Central, PICC or Fol: Yes The following are medically ne: Central Line, Lau Catheter Reason for lau catheter: Strict I&O Subjective Review of Systems Hardy Almanza is a 74-year-old male patient who presents to ED with chief complaint of palpitation three days before his admission. Upon his arrival to the emergency department he was diagnosed with atrial fibrillation with rapid ventricular response and placed on a diltiazem drip to control his heart rate. Patient progressed with cardiac arrest secondary to ventricular arrhythmias (ventricular tachycardia and torsades de Pointe) requiring CPR and ACLS maneuvers (three epinephrine, 300 mg of amiodarone and defibrillation x2) for 8 minutes with endotracheal intubation, obtaining ROSC. Patient initially was placed on amiodarone drip, but then was discontinued and indicated magnesium due to prolonged QT. Due to clinical status obtained history of present illness and past medical history from EMR and who is at bedside. Could not obtain review of systems. Cardiology consulted for elevated troponins. 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 Ex tobacco abuse (eight pack-year history of smoking) quit 30 years ago. Denies current tobacco, alcohol and other drug abuse Allergies: Denies Home medication: Pradaxa 150 mg p.o. daily, atorvastatin 40 mg p.o. daily, hydrochlorothiazide 12.5 mg p.o. daily, lisinopril 20 mg p.o. daily, glipizide, metformin a 1000 mg p.o. b.i.d., metoprolol (he quit taking for four months since it made him tired). Patient seen and examined at bedside. Currently under mechanical assisted ventilation, off vasopressors. Continue with triple therapy at this point. We will recommend repeat echocardiogram and stage procedure to RCA in one week. Objective vital signs Vital Sign Date Time Temp Pulse Resp B/P (MAP) Pulse Ox O2 Delivery O2 Flow Rate FiO2 07/10/25 12:30 99.0 93 28 94/49 (64) 99 210.2 07/10/25 12:28 30 07/10/25 12:00 Mechanical Ventilator+ Total Intake and Output 07/09/25 07/09/25 07/10/25 15:00 23:00 07:00 Intake Total 613.435 ml 441.300 ml 495.150 ml Output Total 350 ml 350 ml Balance 613.435 ml 91.300 ml 145.150 ml medications Current Medications Medications Dose Ordered Sig/Jesse Route Start Time Stop Time Status Last Admin Dose Admin Atorvastatin Calcium 40 mg HS PO 06/29/25 22:00 07/09/25 22:01 40 MG Norepinephrine Bitartrate 250 ml @ 3.75 mls/hr Q24H IV 06/29/25 06:15 07/05/25 06:45 3.75 MLS/HR Fentanyl Citrate 250 ml @ 2.5 mls/hr Q24H IV 06/29/25 06:15 07/10/25 10:48 17.5 MLS/HR Aspirin 81 mg DAILY PO 06/30/25 10:00 07/10/25 10:32 81 MG Insulin Human Regular HS SC 06/29/25 22:00 Cancel Insulin Human Regular AC SC 06/29/25 17:00 Cancel Pantoprazole Sodium 40 mg DAILY IV 06/30/25 10:00 07/10/25 10:32 40 MG Clopidogrel Bisulfate 75 mg DAILY PO 06/30/25 10:00 07/10/25 10:33 75 MG Diagnostic Test (Pha) 1 strip IQ4HR 06/29/25 20:00 07/10/25 12:51 1 STRIP Insulin Human Regular IQ4HR SC 06/29/25 20:00 07/10/25 12:50 3 UNITS Dextrose 50 ml UD PRN IV 06/29/25 17:30 Midazolam HCl 100 ml @ 1 mls/hr Q24H IV 06/29/25 18:00 07/09/25 20:00 1 MLS/HR Enoxaparin Sodium 100 mg Q12HR SC 06/30/25 10:00 07/10/25 10:33 100 MG Enteral Nutritional Formula 1,000 ml 45ML/HR GT 06/30/25 17:15 07/01/25 07:29 1,000 ML Acetaminophen 650 mg Q4HP PRN PO 07/01/25 17:00 07/03/25 00:43 650 MG Vancomycin HCl 0 ml @ 0 mls/hr PER PHARMACY IV 07/02/25 13:15 Meropenem 50 ml @ 17 mls/hr Q8HR IV 07/04/25 22:00 07/10/25 05:56 17 MLS/HR Furosemide 20 mg DAILY PO 07/06/25 10:00 07/10/25 10:33 20 MG Insulin Glargine 12 units HS SC 07/06/25 22:00 07/09/25 22:03 12 UNITS Polyethylene Glycol 17 gm DAILY PO 07/08/25 10:00 07/10/25 10:33 17 GM Propofol 100 ml @ 3.225 mls/ hr Q24H IV 07/08/25 09:45 07/10/25 05:57 9.675 MLS/HR Vancomycin HCl 100 ml @ 100 mls/hr Q12H IV 07/10/25 23:00 Examination Patient lying in bed, under sedoanalgesia due to mechanical ventilation General: RASS -3, afebrile, mucosae are moist Cardiovascular: Normal S1 and S2. Holosystolic murmur best heard in apex which radiates towards axilla intensity 4/6. No gallops or rubs Respiratory: Mechanically assisted ventilation, equal bilateral airway entree. Clear lung sounds on auscultation. Abdomen: Soft, nontender, no organomegaly, normal bowel sounds MSK/skin: Mobilization of limbs cannot be evaluated. Skin is dry and warm. Presents bilateral erythematous and ulcerated lesions. Neurological: Orientation cannot be assessed. No apparent motor no sensitive deficits. Pupils are isocoric and reactive laboratory and microbiology Laboratory Tests 07/10/25 03:00 Test 07/10/25 03:00 Range/Units Serum Glucose 140 H 74-106 mg/dL Microbiology Date/Time Source Procedure Growth Status 07/03/25 16:00 Sputum Gram Stain - Final Complete 07/03/25 16:00 Respiratory Culture - Final Pseudomonas aeruginosa Serratia marcescens Complete 07/03/25 09:40 Blood Blood Culture - Final NO GROWTH AFTER 5 DAYS OF INCUBATION. Complete 07/01/25 22:35 Urine - Catheterized Urine Culture - Final Complete 06/29/25 04:30 Nose MRSA Screen - Final Complete Problem List/Assessment/Plan Problem List/Assessment/Plan Assessment Cardiac arrest secondary to ventricular arrhythmia (ventricular tachycardia and torsades de Pointe) - status post ROSC Acute respiratory failure NSTEMI type 1 - status post PCI with 4 STANLEY to circumflex and 3 STANLEY to LAD Newly diagnosed coronary artery disease - triple-vessel disease Prolonged QT Paroxysmal atrial fibrillation with RVR (chads Vasc 7) - secondary hypercoagulability state Metabolic acidosis with elevated anion gap secondary to hyperlacticacidemia KEANU hemodynamically mediated (VMN) 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 Initial ventriculogram shows LVEF of 15%. Revascularized culprit vessel. Completed stage procedure to LAD on 07/05/2025. Planning on completing staged RCA (can be completed in this center or in [place]). Initially was on heparin drip, now on therapeutic enoxaparin for A-fib. Echocardiogram: LVEF 20%, moderate LV enlargement, severe end stage HF, RV dysfunction, moderate MAC, mild MR and TR, moderate pulmonary HTN Will repeat echocardiogram in 1 week. Currently on mechanical assisted ventilation Avoid QT prolonging medication Replenish electrolytes. Goal magnesium above 2 and goal potassium above 4. On insulin sliding scale Rest of management per primary team (on IV antibiotics) Goals of care discussed with (Myrna) for over 18 minutes: Full code status Discussed plan with Dr. Pierre, and nurses: Patient currently ICU status due to mechanical assisted ventilation and off vasopressors. Completed initial coronary angiography on 06/29/2025 which showed triple-vessel disease with acute circumflex occlusion status post PCI with 4 STANLEY placed, staged procedure to LAD with 3 STANLEY on 07/05/2025. Planning on new stage procedure to RCA and repeat echocardiogram in on Thursday07/12/2025. Optimize electrolytes, avoid QT prolonging medication. Patient has poor prognosis. Critical care time spent including discussion with nursing and family, excluding procedures: 68 minutes. Plan discussed with: Spouse, Other (Nurses) Dietary Evaluation Review Comments: 1. Protein needs based on 1.2-1.5g/protein/kg IBW d/t low GFR 2. While being intubated, offer TF Vital HP @45ml/hr, in 24 hr, Pt will receive 94g protein, 1080lkcal 903ml free water, meeting pts needs at 97% protein and 100% energy. 3. Consider TPN to meet pt's needs if Pt does not tolerate TF well. 4. Reassess when pt extubated, advance to CCHO-60 PO diet after passing a OPERATIONS INTELLIGENCE SUPERINTENDENT evluation. Expected Outcomes/Goals: off intubation, advance to CCHO-60 Cardiac diet, gradual wt loss Visit Coding Cardiology RES Date of Service: Jul 10, 2025 Billing Provider: PHILLIP PIERRE Sr., MD Cardiology Common Codes: [id number] HOSP CARE(High Cardiology Secondary Visit Cod: [id number] CARE PLAN 30 MINUTES JOSELYN STEIN RESIDENT Jul 10, 2025 13:52
[2025-07-10] MEDS ORDERED: NICOTINE 21MG/24 HR TOPICAL PATCH TD ONE (16:00)
--- NOTE | 2025-07-10 17:30 | DVHPNRES ---
Progress Note Date Seen: Jul 10, 2025 Resident Creating Document: CYNTHIA LOVE RESIDENT Medical Necessity Reason Pt with a Central, PICC or Fol: Yes The following are medically ne: Central Line, Lau Catheter Reason for lau catheter: Strict I&O Subjective Review of Systems Patient is a 74-year-old male with past medical history of hypertension, diabetes type 2, dyslipidemia, paroxysmal atrial fibrillation, CVA in 2019, presented to the ED with chief complaints of 3 days of palpitations, shortness of breath before his admission. On arrival to the ED patient was found to have atrial fibrillation with RVR and was started on a diltiazem drip to control his heart rate. Patient progressed to have cardiac arrest secondary to ventricular arrhythmias possibly ventricular tachycardia or torsades de Pointe. Patient required CPR and ACLS maneuvers for 8 minutes followed by endotracheal intubation, obtained by ROSC. Patient was initially on amiodarone drip which was later discontinued after magnesium was given for QT prolongation. Due to clinical status obtained history of present illness and past medical history from EMR and who is at bedside. Could not obtain review of systems. Cardiology consulted for elevated troponins. Past medical history: Hypertension, dyslipidemia, diabetes, paroxysmal atrial fibrillation diagnosed in 2017 (chads Vasc 7), 2019 CVA Past surgical history: Appendectomy Family history: Two brothers had heart disease requiring CABG at the age of 40 and 50 respectively, brother had lung cancer, mother had breast cancer Social history: with . Ex tobacco abuse (eight pack-year history of smoking) quit 30 years ago. Denies current tobacco, alcohol and other drug abuse Allergies: Denies Home medication: Pradaxa 150 mg p.o. daily, atorvastatin 40 mg p.o. daily, hydrochlorothiazide 12.5 mg p.o. daily, lisinopril 20 mg p.o. daily, glipizide, metformin a 1000 mg p.o. b.i.d., metoprolol (he quit taking for four months since it made him tired). 06/30/25: Patient seen and examined at bedside. Patient is currently sedated and on mechanically ventilation, with ventilator settings at tidal volume 500, FiO2 30%, peep at 5, off of pressors phenylephrine and norepinephrine. 07/01/2025: Patient seen and examined at bedside. Patient is currently sedated and mechanically ventilated. Patient today has fever and elevated WBC, blood culture ordered. Patient is on pressor Levophed 9, patient's HR 150- 160s, order was given of metoprolol IV 5 mg with partial control of the RVR, also digoxin loading dose given. Metoprolol 25 mg PO daily was also placed for tomorrow. 07/02/2025: Patient seen and examined in ICU. Hr is under controlled. Intubated. temperature 99.3 started cefepime and vancomycin. blood culture G + bacteria. 07/03/2025 :Patient seen and examined in the ICU. Patient heart rate is under control, patient is intubated, mechanically ventilated, temperature 100.6. continue cefepime, vancomycin. Repeat blood cultures were ordered.(Staph coagulase negative, could be contaminate). Planning on performing LHC on Thursday07/05/2025, have informed . 07/04/2025: Patient seen and examined in ICU. Patient is mechanically intubated, patient had a fever yesterday night but decreased. Sputum culture showed Gram-negative rods. Discontinued cefepime. Started meropenem, 12.5 metoprolol b.i.d. Repeat blood cultures are negative. Planning on performing LHC on Thursday07/05/2025, have informed . 07/05/25: Patient seen and examined in ICU. Patient is mechanically intubated, patient had Bradycardia overnight for wich metoprlol was held. LHC was done today with 3 stents placed in the LAD. Possible RHC to be done. 07/06/2025: patient seen and examined in ICU. Patient is mechanically ventilated, had a left heart catheterization done yesterday with 3 stents placed in the LAD, Planning to do next procedure in one week to RCA. 07/07/2025: patient seen and examined in ICU. Patient is mechanically ventilated, had a left heart catheterization done yesterday with 3 stents placed in the LAD, CPAP trial done today, failed, we will try again tomorrow. 07/08/2025:patient seen and examined in ICU . on ventilator. CPAP trial failed, become tachypneic. we will try again. 07/09/2025: Patient seen and examined in ICU, on ventilator, overnight patient had AFib with RVR, so CPAP trial was deferred for today. We will try again tomorrow. discontinue metoprolol, patient's last bowel movement was on the so lactulose was given. Patient's WBC is 17.1. Cardiology following. Patient is to have a heart catheterization on Thursday. 07/10/2025: Patient seen and examined in [facility]. on ventilator, no overnight events were noted. No CPAP trial until procedure on Thursday. Patient's last bowel movement was on the , senna was added, patient started on digoxin. Objective vital signs Vital Sign Date Time Temp Pulse Resp B/P (MAP) Pulse Ox O2 Delivery O2 Flow Rate FiO2 07/10/25 16:45 102 17 107/49 (68) 98 07/10/25 16:37 30 07/10/25 16:00 Mechanical Ventilator+ 07/10/25 15:45 99.3 210.7 Total Intake and Output 07/09/25 07/09/25 07/10/25 15:00 23:00 07:00 Intake Total 613.435 ml 441.300 ml 495.150 ml Output Total 350 ml 350 ml Balance 613.435 ml 91.300 ml 145.150 ml medications Current Medications Medications Dose Ordered Sig/Jesse Route Start Time Stop Time Status Last Admin Dose Admin Atorvastatin Calcium 40 mg HS PO 06/29/25 22:00 07/09/25 22:01 40 MG Norepinephrine Bitartrate 250 ml @ 3.75 mls/hr Q24H IV 06/29/25 06:15 07/05/25 06:45 3.75 MLS/HR Fentanyl Citrate 250 ml @ 2.5 mls/hr Q24H IV 06/29/25 06:15 07/10/25 10:48 17.5 MLS/HR Aspirin 81 mg DAILY PO 06/30/25 10:00 07/10/25 10:32 81 MG Insulin Human Regular HS SC 06/29/25 22:00 Cancel Insulin Human Regular AC SC 06/29/25 17:00 Cancel Pantoprazole Sodium 40 mg DAILY IV 06/30/25 10:00 07/10/25 10:32 40 MG Clopidogrel Bisulfate 75 mg DAILY PO 06/30/25 10:00 07/10/25 10:33 75 MG Diagnostic Test (Pha) 1 strip IQ4HR 06/29/25 20:00 07/10/25 12:51 1 STRIP Insulin Human Regular IQ4HR SC 06/29/25 20:00 07/10/25 12:50 3 UNITS Dextrose 50 ml UD PRN IV 06/29/25 17:30 Midazolam HCl 100 ml @ 1 mls/hr Q24H IV 06/29/25 18:00 07/09/25 20:00 1 MLS/HR Enoxaparin Sodium 100 mg Q12HR SC 06/30/25 10:00 07/10/25 10:33 100 MG Enteral Nutritional Formula 1,000 ml 45ML/HR GT 06/30/25 17:15 07/01/25 07:29 1,000 ML Acetaminophen 650 mg Q4HP PRN PO 07/01/25 17:00 07/03/25 00:43 650 MG Vancomycin HCl 0 ml @ 0 mls/hr PER PHARMACY IV 07/02/25 13:15 Meropenem 50 ml @ 17 mls/hr Q8HR IV 07/04/25 22:00 07/10/25 14:28 17 MLS/HR Insulin Glargine 12 units HS SC 07/06/25 22:00 07/09/25 22:03 12 UNITS Polyethylene Glycol 17 gm DAILY PO 07/08/25 10:00 07/10/25 10:33 17 GM Propofol 100 ml @ 3.225 mls/ hr Q24H IV 07/08/25 09:45 07/10/25 05:57 9.675 MLS/HR Vancomycin HCl 100 ml @ 100 mls/hr Q12H IV 07/10/25 23:00 Potassium Chloride 100 ml @ 50 mls/hr Q2H IV 07/10/25 16:00 07/10/25 19:59 Digoxin 125 mcg DAILY IV 07/11/25 10:00 Sennosides 8.6 mg HS PO 07/10/25 22:00 Examination HEENT: Normocephalic, atraumatic, moist mucous membranes Respiratory/pulmonary: Clear lungs bilaterally, vesicular murmurs present in almost all lung roberts, no associated crackles or wheezes. Cardiovascular: Normal heart sounds S1 and S2 with no associated murmurs Abdomen: Abdomen nondistended, there is no pain to palpation in any of the abdominal quadrants, no palpable masses. Extremities: There is no peripheral edema present at the lower extremities. Bilateral erythematous and ulcerated lesions. Skin: No rashes or pruritus, there is no sacral edema present at this time. laboratory and microbiology Laboratory Tests 07/10/25 03:00 Test 07/10/25 03:00 Range/Units Serum Glucose 140 H 74-106 mg/dL Microbiology Date/Time Source Procedure Growth Status 07/03/25 16:00 Sputum Gram Stain - Final Complete 07/03/25 16:00 Respiratory Culture - Final Pseudomonas aeruginosa Serratia marcescens Complete 07/03/25 09:40 Blood Blood Culture - Final NO GROWTH AFTER 5 DAYS OF INCUBATION. Complete 07/01/25 22:35 Urine - Catheterized Urine Culture - Final Complete 06/29/25 04:30 Nose MRSA Screen - Final Complete Problem List/Assessment/Plan Problem List/Assessment/Plan Neurology Acute metabolic encephalopathy History of CVA-with residual aphasia, right-sided deficit -Sedation/neurological status: Rass score -3 - off of Levophed, phenylephrine Cardiology Cardiac arrest secondary to ventricular arrhythmia (ventricular tachycardia, torsade de pointes) NSTEMI type 1 status post PCI Newly diagnosed coronary artery disease - triple-vessel disease Prolonged QT Paroxysmal atrial fibrillation with RVR Hypertension Dyslipidemia - EKG showed atrial fibrillation with anterior T-wave inversions, prolonged QT - coronary angiography showed severe triple-vessel disease with acutely occluded circumflex status post PCI with 1 drug-eluting stent placed. -ventriculogram showed LVEF of 15% - ordered echocardiography, lvef 20%, moderate LV enlargement, severe end stage HF - avoid QT prolongation medications - Dany Vasc score 7 -currently on vasopressors Levophed, phenylephrine -severe CAD in LAD and RCA, plan to do angiography on Thursday -patient given aspirin, atorvastatin, clopidogrel - ordered 12.5 metoprolol tartrate b.i.d. - [facility] done (07/05) with 3 stents placed in LAD. - Planning on new stage procedure to RCA on Thursday. Repeat echocardiogram. Respiratory Acute hypoxic respiratory failure likely due to cardiac arrest Possible Aspiration Pneumonia -ventilator settings: VT 500, respiratory rate 17, FiO2 30 %, PEEP 5 -chest x-ray: Similar bilateral inferior graded opacities, likely a combination of airspace disease and pleural effusion. Genitourinary/kidney Acute kidney injury likely due to be VMN -medication: Given Lasix 20 mg once -strict I&Os -nephrotoxic drugs Endocrine Uncontrolled diabetes mellitus, HbA1c 10.6 - on insulin sliding scale Infectious Septic shock due to Aspiration pneumonia -urine culture preliminary negative -blood cultures ordered, as WBC elevated and fever present -blood culture showed positive staph coagulase negative. - repeat blood cultures negative - Respiratory culture (07/03) - Pseudomonas aeruginosa - IV vancomycin, meropenem started(07/04) Transaminitis - monitor labs Obesity BMI 33.0 Lines / Tubes / Devices Airway: Intubated via ETT on 06/29 Vascular Access: Central line 06/29 Drips: Fentanyl, midazolam, norepinephrine, phenylephrine, Versed Prophylaxis / Supportive Care DVT Prophylaxis: Lovenox. GI Prophylaxis: Protonix. Goals of care discussed with the patient family for more than 29 minutes: Full code state Patient care updated to ([place]), addressed all concerns. Critical care time spent excluding procedures 84 minutes Plan discussed with Dr. Waters and RN Plan discussed with: Spouse My Orders My Orders Orders - CYNTHIA LOVE Procedure Category Date Status Time Digoxin Injection PHA 07/11/25 In Process (Lanoxin Injection) 10:00 Chest Ultrasound US 07/10/25 Taken 16:46 Senna Pod Tablet PHA 07/10/25 In Process (Senokot Tablet) 22:00 Dietary Evaluation Review Comments: 1. Protein needs based on 1.2-1.5g/protein/kg IBW d/t low GFR 2. While being intubated, offer TF Vital HP @45ml/hr, in 24 hr, Pt will receive 94g protein, 1080lkcal 903ml free water, meeting pts needs at 97% protein and 100% energy. 3. Consider TPN to meet pt's needs if Pt does not tolerate TF well. 4. Reassess when pt extubated, advance to CCHO-60 PO diet after passing a VP CARDIOVASCULAR evluation. Expected Outcomes/Goals: off intubation, advance to CCHO-60 Cardiac diet, gradual wt loss Date of Service: Jul 10, 2025 Billing Provider: YOBANY AGUIRRE MD Common Visit Codes: 65127-DQQPDINE CARE 30-74 MIN, 53551-AYLMYOAD CARE-EACH +30MIN CYNTHIA LOVE Jul 10, 2025 17:30 YOBANY AGUIRRE MD Jul 11, 2025 13:14
[2025-07-10] MEDS: POTASSIUM CHL 20MEQ/100ML 100 ML IV SCH (19:02)
[2025-07-10] MEDS: DIGOXIN (250MCG/ML) 2 ML AMPULE IV ONE (19:02)
--- NOTE | 2025-07-10 19:44 | DVH ---
Bilateral Chest Sonogram Clinical history: pleural effusion Technique: Limited sonographic evaluation of the right and left chest was performed. Findings/Impression: There is a trace right and no left pleural effusion.
[2025-07-10] MEDS: SENNA 8.6 MG TAB PO SCH (21:48)
[2025-07-10] MEDS: VANCOMYCIN 750MG KIT 100 ML IV SCH (22:53)
[2025-07-11] VITALS (105 sets, daily range): BP systolic 82–139; BP diastolic 37–78; PULSE 74–142; RESP 10–26; TEMP 96.8–100.4; O2SAT 96–100
[2025-07-11 02:43] LABS: Hematocrit 27.1 % (41.0-53.0); Hemoglobin 9.0 g/dL (13.5-17.5); Mean Corpuscular Hemoglobin 27.4 pg (28.0-32.0); Mean Corpuscular Volume 82.2 fL (80.0-100.0); Nucleated Red Blood Cells % 0.0 %
[2025-07-11 04:47] LABS: Alanine Aminotransferase 18 U/L (7-40); Anion Gap 7 (5-15); BUN/Creatinine Ratio 30.7 (10.0-20.0); Bilirubin, Total 0.6 mg/dL (0.2-1.0); Carbon Dioxide 28 mmol/L (20-31); Potassium 4.8 mmol/L (3.5-5.1); Sodium 142 mmol/L (136-145)
[2025-07-11 05:48] LABS: Albumin 2.3 g/dL (3.2-4.8); Alkaline Phosphatase 127 U/L (46-116); Blood Urea Nitrogen 27 mg/dL (9-23); Calcium 7.5 mg/dL (8.7-10.4); Chloride 107 mmol/L (98-107); Glucose 206 mg/dL (74-106); Total Protein 5.4 g/dL (5.7-8.2)
[2025-07-11 07:51] LABS: Base Excess 3.7 mmol/L (-2.0-3.0)
[2025-07-11] MEDS: ATROPINE SULF 1 MG/10ml SYR ONE (08:12)
[2025-07-11] MEDS ORDERED: NICOTINE 21MG/24 HR TOPICAL PATCH TD SCH (10:00)
[2025-07-11] MEDS: DIGOXIN (250MCG/ML) 2 ML AMPULE IV SCH (10:14)
--- NOTE | 2025-07-11 11:30 | DVHPNRES ---
Progress Note Date Seen: Jul 11, 2025 Resident Creating Document: CYNTHIA LOVE RESIDENT Medical Necessity Reason Pt with a Central, PICC or Fol: Yes The following are medically ne: Central Line, Lau Catheter Reason for lau catheter: Strict I&O Subjective Review of Systems Patient is a 74-year-old male with past medical history of hypertension, diabetes type 2, dyslipidemia, paroxysmal atrial fibrillation, CVA in 2019, presented to the ED with chief complaints of 3 days of palpitations, shortness of breath before his admission. On arrival to the ED patient was found to have atrial fibrillation with RVR and was started on a diltiazem drip to control his heart rate. Patient progressed to have cardiac arrest secondary to ventricular arrhythmias possibly ventricular tachycardia or torsades de Pointe. Patient required CPR and ACLS maneuvers for 8 minutes followed by endotracheal intubation, obtained by ROSC. Patient was initially on amiodarone drip which was later discontinued after magnesium was given for QT prolongation. Due to clinical status obtained history of present illness and past medical history from EMR and who is at bedside. Could not obtain review of systems. Cardiology consulted for elevated troponins. Past medical history: Hypertension, dyslipidemia, diabetes, paroxysmal atrial fibrillation diagnosed in 2017 (chads Vasc 7), 2019 CVA Past surgical history: Appendectomy Family history: Two brothers had heart disease requiring CABG at the age of 40 and 50 respectively, brother had lung cancer, mother had breast cancer Social history: with . Ex tobacco abuse (eight pack-year history of smoking) quit 30 years ago. Denies current tobacco, alcohol and other drug abuse Allergies: Denies Home medication: Pradaxa 150 mg p.o. daily, atorvastatin 40 mg p.o. daily, hydrochlorothiazide 12.5 mg p.o. daily, lisinopril 20 mg p.o. daily, glipizide, metformin a 1000 mg p.o. b.i.d., metoprolol (he quit taking for four months since it made him tired). 06/30/25: Patient seen and examined at bedside. Patient is currently sedated and on mechanically ventilation, with ventilator settings at tidal volume 500, FiO2 30%, peep at 5, off of pressors phenylephrine and norepinephrine. 07/01/2025: Patient seen and examined at bedside. Patient is currently sedated and mechanically ventilated. Patient today has fever and elevated WBC, blood culture ordered. Patient is on pressor Levophed 9, patient's HR 150- 160s, order was given of metoprolol IV 5 mg with partial control of the RVR, also digoxin loading dose given. Metoprolol 25 mg PO daily was also placed for tomorrow. 07/02/2025: Patient seen and examined in ICU. Hr is under controlled. Intubated. temperature 99.3 started cefepime and vancomycin. blood culture G + bacteria. 07/03/2025 :Patient seen and examined in the ICU. Patient heart rate is under control, patient is intubated, mechanically ventilated, temperature 100.6. continue cefepime, vancomycin. Repeat blood cultures were ordered.(Staph coagulase negative, could be contaminate). Planning on performing LHC on Thursday07/05/2025, have informed . 07/04/2025: Patient seen and examined in ICU. Patient is mechanically intubated, patient had a fever yesterday night but decreased. Sputum culture showed Gram-negative rods. Discontinued cefepime. Started meropenem, 12.5 metoprolol b.i.d. Repeat blood cultures are negative. Planning on performing LHC on Thursday07/05/2025, have informed . 07/05/25: Patient seen and examined in ICU. Patient is mechanically intubated, patient had Bradycardia overnight for wich metoprlol was held. LHC was done today with 3 stents placed in the LAD. Possible RHC to be done. 07/06/2025: patient seen and examined in ICU. Patient is mechanically ventilated, had a left heart catheterization done yesterday with 3 stents placed in the LAD, Planning to do next procedure in one week to RCA. 07/07/2025: patient seen and examined in ICU. Patient is mechanically ventilated, had a left heart catheterization done yesterday with 3 stents placed in the LAD, CPAP trial done today, failed, we will try again tomorrow. 07/08/2025:patient seen and examined in ICU . on ventilator. CPAP trial failed, become tachypneic. we will try again. 07/09/2025: Patient seen and examined in ICU, on ventilator, overnight patient had AFib with RVR, so CPAP trial was deferred for today. We will try again tomorrow. discontinue metoprolol, patient's last bowel movement was on the so lactulose was given. Patient's WBC is 17.1. Cardiology following. Patient is to have a heart catheterization on Thursday. 07/10/2025: Patient seen and examined in [facility]. on ventilator, no overnight events were noted. No CPAP trial until procedure on Thursday. Patient's last bowel movement was on the , senna was added, patient started on digoxin. 07/11/2025: Patient seen in examined in the [facility]. patient is still on ventilator, on minimal ventilator settings, tidal volume was changed to 400. Patient has not had a bowel movement since , but abdomen soft. Patient is on fentanyl 175, propofol 24. chest ultrasound showed trace pleural effusion on the right side. Patient is to have heart catheterization tomorrow. Objective vital signs Vital Sign Date Time Temp Pulse Resp B/P (MAP) Pulse Ox O2 Delivery O2 Flow Rate FiO2 07/11/25 10:45 98.6 123 21 126/53 (77) 99 209.5 07/11/25 10:15 30 07/11/25 10:00 Mechanical Ventilator+ Total Intake and Output 07/10/25 07/10/25 07/11/25 15:00 23:00 07:00 Intake Total 243.400 ml 223.550 ml 768.900 ml Output Total 500 ml 550 ml Balance 243.400 ml -276.450 ml 218.900 ml medications Current Medications Medications Dose Ordered Sig/Jesse Route Start Time Stop Time Status Last Admin Dose Admin Atorvastatin Calcium 40 mg HS PO 06/29/25 22:00 07/10/25 21:48 40 MG Norepinephrine Bitartrate 250 ml @ 3.75 mls/hr Q24H IV 06/29/25 06:15 07/05/25 06:45 3.75 MLS/HR Fentanyl Citrate 250 ml @ 2.5 mls/hr Q24H IV 06/29/25 06:15 07/10/25 10:48 17.5 MLS/HR Aspirin 81 mg DAILY PO 06/30/25 10:00 07/11/25 10:15 81 MG Insulin Human Regular HS SC 06/29/25 22:00 Cancel Insulin Human Regular AC SC 06/29/25 17:00 Cancel Pantoprazole Sodium 40 mg DAILY IV 06/30/25 10:00 07/11/25 10:13 40 MG Clopidogrel Bisulfate 75 mg DAILY PO 06/30/25 10:00 07/11/25 10:14 75 MG Diagnostic Test (Pha) 1 strip IQ4HR 06/29/25 20:00 07/11/25 08:12 1 STRIP Insulin Human Regular IQ4HR SC 06/29/25 20:00 07/11/25 08:19 3 UNITS Dextrose 50 ml UD PRN IV 06/29/25 17:30 Midazolam HCl 100 ml @ 1 mls/hr Q24H IV 06/29/25 18:00 07/09/25 20:00 1 MLS/HR Enoxaparin Sodium 100 mg Q12HR SC 06/30/25 10:00 07/11/25 10:13 100 MG Enteral Nutritional Formula 1,000 ml 45ML/HR GT 06/30/25 17:15 07/01/25 07:29 1,000 ML Acetaminophen 650 mg Q4HP PRN PO 07/01/25 17:00 07/03/25 00:43 650 MG Vancomycin HCl 0 ml @ 0 mls/hr PER PHARMACY IV 07/02/25 13:15 Meropenem 50 ml @ 17 mls/hr Q8HR IV 07/04/25 22:00 07/11/25 05:57 17 MLS/HR Insulin Glargine 12 units HS SC 07/06/25 22:00 07/10/25 21:47 12 UNITS Polyethylene Glycol 17 gm DAILY PO 07/08/25 10:00 07/11/25 10:15 17 GM Propofol 100 ml @ 3.225 mls/ hr Q24H IV 07/08/25 09:45 07/11/25 08:43 16.125 MLS/HR Vancomycin HCl 100 ml @ 100 mls/hr Q12H IV 07/10/25 23:00 07/11/25 10:44 100 MLS/HR Digoxin 125 mcg DAILY IV 07/11/25 10:00 07/11/25 10:14 125 MCG Sennosides 8.6 mg HS PO 07/10/25 22:00 07/10/25 21:48 8.6 MG Examination General: intubated, sedated HEENT: Normocephalic, atraumatic, moist mucous membranes Respiratory/pulmonary: Clear lungs bilaterally, vesicular murmurs present in almost all lung roberts, no associated crackles or wheezes. Cardiovascular: Normal heart sounds S1 and S2 with no associated murmurs Abdomen: Abdomen nondistended, there is no pain to palpation in any of the abdominal quadrants, no palpable masses. Extremities: There is no peripheral edema present at the lower extremities. Bilateral erythematous and ulcerated lesions. Skin: No rashes or pruritus, there is no sacral edema present at this time. laboratory and microbiology Laboratory Tests 07/11/25 01:40 Test 07/11/25 01:40 Range/Units Serum Glucose 206 H 74-106 mg/dL Microbiology Date/Time Source Procedure Growth Status 07/03/25 16:00 Sputum Gram Stain - Final Complete 07/03/25 16:00 Respiratory Culture - Final Pseudomonas aeruginosa Serratia marcescens Complete 07/03/25 09:40 Blood Blood Culture - Final NO GROWTH AFTER 5 DAYS OF INCUBATION. Complete 07/01/25 22:35 Urine - Catheterized Urine Culture - Final Complete 06/29/25 04:30 Nose MRSA Screen - Final Complete Problem List/Assessment/Plan Problem List/Assessment/Plan Neurology Acute metabolic encephalopathy History of CVA-with residual aphasia, right-sided deficit -Sedation/neurological status: Rass score -3 - off of Levophed, phenylephrine Cardiology Cardiac arrest secondary to ventricular arrhythmia (ventricular tachycardia, torsade de pointes) NSTEMI type 1 status post PCI Newly diagnosed coronary artery disease - triple-vessel disease Prolonged QT Paroxysmal atrial fibrillation with RVR Hypertension Dyslipidemia - EKG showed atrial fibrillation with anterior T-wave inversions, prolonged QT - coronary angiography showed severe triple-vessel disease with acutely occluded circumflex status post PCI with 1 drug-eluting stent placed. -ventriculogram showed LVEF of 15% - ordered echocardiography, lvef 20%, moderate LV enlargement, severe end stage HF - avoid QT prolongation medications - Dany Vasc score 7 -currently on vasopressors Levophed, phenylephrine -severe CAD in LAD and RCA, plan to do angiography on Thursday -patient given aspirin, atorvastatin, clopidogrel - ordered 12.5 metoprolol tartrate b.i.d. - [facility] done (07/05) with 3 stents placed in LAD. - Planning on new stage procedure to RCA on Thursday. Repeat echocardiogram. - digoxin 250 mcg added, Respiratory Acute hypoxic respiratory failure likely due to cardiac arrest Possible Aspiration Pneumonia -ventilator settings: VT 500, respiratory rate 17, FiO2 30 %, PEEP 5 -chest x-ray: Similar bilateral inferior graded opacities, likely a combination of airspace disease and pleural effusion. Genitourinary/kidney Acute kidney injury likely due to be VMN -medication: Given Lasix 20 mg once -strict I&Os -nephrotoxic drugs Endocrine Uncontrolled diabetes mellitus, HbA1c 10.6 - on insulin sliding scale Infectious Septic shock due to Aspiration pneumonia -urine culture preliminary negative -blood cultures ordered, as WBC elevated and fever present -blood culture showed positive staph coagulase negative. - repeat blood cultures negative - Respiratory culture (07/03) - Pseudomonas aeruginosa - IV vancomycin, meropenem started(07/04) Transaminitis - monitor labs Obesity BMI 33.0 Lines / Tubes / Devices Airway: Intubated via ETT on 06/29 Vascular Access: Central line 06/29 Drips: Fentanyl, midazolam, norepinephrine, phenylephrine, Versed Prophylaxis / Supportive Care DVT Prophylaxis: Lovenox. GI Prophylaxis: Protonix. Goals of care discussed with the patient family for more than 29 minutes: Full code state Patient care updated to (Myrna), addressed all concerns. Critical care time spent excluding procedures 82 minutes Plan discussed with Dr. Waters and RN Plan discussed with: Spouse My Orders My Orders Orders - CYNTHIA LOVE RESIDENT Procedure Category Date Status Time Digoxin Injection PHA 07/11/25 In Process (Lanoxin Injection) 10:00 Chest Ultrasound US 07/10/25 Resulted 16:46 Senna Pod Tablet PHA 07/10/25 In Process (Senokot Tablet) 22:00 Chest Xray 1 View XY 07/11/25 Taken 04:00 Abg W/ Co-Ox RT 07/11/25 Logged 04:00 Dietary Evaluation Review Comments: 1. Protein needs based on 1.2-1.5g/protein/kg IBW d/t low GFR 2. While being intubated, offer TF Vital HP @45ml/hr, in 24 hr, Pt will receive 94g protein, 1080lkcal 903ml free water, meeting pts needs at 97% protein and 100% energy. 3. Consider TPN to meet pt's needs if Pt does not tolerate TF well. 4. Reassess when pt extubated, advance to [place]-60 PO diet after passing a [employer] evluation. Expected Outcomes/Goals: off intubation, advance to CCHO-60 Cardiac diet, gradual wt loss Date of Service: Jul 11, 2025 Billing Provider: YOBANY AGUIRRE MD Common Visit Codes: 82616-[id number] CARE 30-74 MIN, [id number] CARE-EACH +30MIN CYNTHIA LOVE RESIDENT Jul 11, 2025 11:30 YOBANY AGUIRRE MD Jul 12, 2025 15:29
--- NOTE | 2025-07-11 12:05 | MEDREC ---
[facility] ASP Intervention Section I [facility] ASP Intervention: Deescalate AB based on CS (PLEASE CONSIDER DE-ESCALATION TO ZOSYN OR CEFEPIME BASED ON CULTURE RESULTS AND SUSCEPTIBILITIES) MARY BERNARD PHARMACIST Jul 11, 2025 12:05
--- NOTE | 2025-07-11 15:34 | DVHPNRES ---
Progress Note Date Seen: Jul 11, 2025 Resident Creating Document: JOSELYN STEIN RESIDENT Medical Necessity Reason Pt with a Central, PICC or Fol: Yes The following are medically ne: Central Line, Lau Catheter Reason for lau catheter: Strict I&O Subjective Review of Systems Hardy Almanza is a 74-year-old male patient who presents to ED with chief complaint of palpitation three days before his admission. Upon his arrival to the emergency department he was diagnosed with atrial fibrillation with rapid ventricular response and placed on a diltiazem drip to control his heart rate. Patient progressed with cardiac arrest secondary to ventricular arrhythmias (ventricular tachycardia and torsades de Pointe) requiring CPR and ACLS maneuvers (three epinephrine, 300 mg of amiodarone and defibrillation x2) for 8 minutes with endotracheal intubation, obtaining ROSC. Patient initially was placed on amiodarone drip, but then was discontinued and indicated magnesium due to prolonged QT. Due to clinical status obtained history of present illness and past medical history from EMR and who is at bedside. Could not obtain review of systems. Cardiology consulted for elevated troponins. Past medical history: Hypertension, dyslipidemia, diabetes, paroxysmal atrial fibrillation diagnosed in 2017 requiring electrical cardioversion converting to sinus rhythm for nine months, and then presented paroxysmal atrial fibrillation (chads Vasc 7), 2020 CVA with residual aphasia and right-sided deficits patient is self-sufficient and mobilizes with wheelchair (requires for bathing assistance) Past surgical history: Appendectomy Family history: Two brothers had heart disease requiring CABG at the age of 40 and 50 respectively, brother had lung cancer, mother had breast cancer Social history: Lives in [place] with (next of kin and caregiver). Ex tobacco abuse (eight pack-year history of smoking) quit 30 years ago. Denies current tobacco, alcohol and other drug abuse Allergies: Denies Home medication: Pradaxa 150 mg p.o. daily, atorvastatin 40 mg p.o. daily, hydrochlorothiazide 12.5 mg p.o. daily, lisinopril 20 mg p.o. daily, glipizide, metformin a 1000 mg p.o. b.i.d., metoprolol (he quit taking for four months since it made him tired). Patient seen and examined at bedside. Currently under mechanical assisted ventilation, off vasopressors. Continue with triple therapy at this point. We will recommend repeat echocardiogram and stage procedure to RCA on 07/12/2025 Objective vital signs Vital Sign Date Time Temp Pulse Resp B/P (MAP) Pulse Ox O2 Delivery O2 Flow Rate FiO2 07/11/25 15:16 116 19 139/46 (77) 97 30 07/11/25 14:00 Mechanical Ventilator+ 07/11/25 10:45 98.6 209.5 Total Intake and Output 07/10/25 07/10/25 07/11/25 15:00 23:00 07:00 Intake Total 243.400 ml 223.550 ml 768.900 ml Output Total 500 ml 550 ml Balance 243.400 ml -276.450 ml 218.900 ml medications Current Medications Medications Dose Ordered Sig/Jesse Route Start Time Stop Time Status Last Admin Dose Admin Atorvastatin Calcium 40 mg HS PO 06/29/25 22:00 07/10/25 21:48 40 MG Norepinephrine Bitartrate 250 ml @ 3.75 mls/hr Q24H IV 06/29/25 06:15 07/05/25 06:45 3.75 MLS/HR Fentanyl Citrate 250 ml @ 2.5 mls/hr Q24H IV 06/29/25 06:15 07/11/25 15:29 17.5 MLS/HR Aspirin 81 mg DAILY PO 06/30/25 10:00 07/11/25 10:15 81 MG Insulin Human Regular HS SC 06/29/25 22:00 Cancel Insulin Human Regular AC SC 06/29/25 17:00 Cancel Pantoprazole Sodium 40 mg DAILY IV 06/30/25 10:00 07/11/25 10:13 40 MG Clopidogrel Bisulfate 75 mg DAILY PO 06/30/25 10:00 07/11/25 10:14 75 MG Diagnostic Test (Pha) 1 strip IQ4HR 06/29/25 20:00 07/11/25 11:38 1 STRIP Insulin Human Regular IQ4HR SC 06/29/25 20:00 07/11/25 11:40 2 UNITS Dextrose 50 ml UD PRN IV 06/29/25 17:30 Midazolam HCl 100 ml @ 1 mls/hr Q24H IV 06/29/25 18:00 07/09/25 20:00 1 MLS/HR Enoxaparin Sodium 100 mg Q12HR SC 06/30/25 10:00 07/11/25 10:13 100 MG Enteral Nutritional Formula 1,000 ml 45ML/HR GT 06/30/25 17:15 07/01/25 07:29 1,000 ML Acetaminophen 650 mg Q4HP PRN PO 07/01/25 17:00 07/03/25 00:43 650 MG Vancomycin HCl 0 ml @ 0 mls/hr PER PHARMACY IV 07/02/25 13:15 Meropenem 50 ml @ 17 mls/hr Q8HR IV 07/04/25 22:00 07/11/25 13:33 17 MLS/HR Insulin Glargine 12 units HS SC 07/06/25 22:00 07/10/25 21:47 12 UNITS Polyethylene Glycol 17 gm DAILY PO 07/08/25 10:00 07/11/25 10:15 17 GM Propofol 100 ml @ 3.225 mls/ hr Q24H IV 07/08/25 09:45 07/11/25 08:43 16.125 MLS/HR Vancomycin HCl 100 ml @ 100 mls/hr Q12H IV 07/10/25 23:00 07/11/25 10:44 100 MLS/HR Sennosides 8.6 mg HS PO 07/10/25 22:00 07/10/25 21:48 8.6 MG Digoxin 250 mcg DAILY IV 07/12/25 10:00 Examination Patient lying in bed, under sedoanalgesia due to mechanical ventilation General: RASS -3, afebrile, mucosae are moist Cardiovascular: Normal S1 and S2. Holosystolic murmur best heard in apex which radiates towards axilla intensity 4/6. No gallops or rubs Respiratory: Mechanically assisted ventilation, equal bilateral airway entree. Clear lung sounds on auscultation. Abdomen: Soft, nontender, no organomegaly, normal bowel sounds MSK/skin: Mobilization of limbs cannot be evaluated. Skin is dry and warm. Presents bilateral erythematous and ulcerated lesions. Neurological: Orientation cannot be assessed. No apparent motor no sensitive deficits. Pupils are isocoric and reactive laboratory and microbiology Laboratory Tests 07/11/25 01:40 Test 07/11/25 01:40 Range/Units Serum Glucose 206 H 74-106 mg/dL Microbiology Date/Time Source Procedure Growth Status 07/03/25 16:00 Sputum Gram Stain - Final Complete 07/03/25 16:00 Respiratory Culture - Final Pseudomonas aeruginosa Serratia marcescens Complete 07/03/25 09:40 Blood Blood Culture - Final NO GROWTH AFTER 5 DAYS OF INCUBATION. Complete 07/01/25 22:35 Urine - Catheterized Urine Culture - Final Complete 06/29/25 04:30 Nose MRSA Screen - Final Complete Problem List/Assessment/Plan Problem List/Assessment/Plan Assessment Cardiac arrest secondary to ventricular arrhythmia (ventricular tachycardia and torsades de Pointe) - status post ROSC Acute respiratory failure NSTEMI type 1 - status post PCI with 4 STANLEY to circumflex and 3 STANLEY to LAD Newly diagnosed coronary artery disease - triple-vessel disease Prolonged QT Paroxysmal atrial fibrillation with RVR (chads Vasc 7) - secondary hypercoagulability state Metabolic acidosis with elevated anion gap secondary to hyperlacticacidemia KEANU hemodynamically mediated (VMN) 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 Initial ventriculogram shows LVEF of 15%. Revascularized culprit vessel. Completed stage procedure to LAD on 07/05/2025. Planning on completing staged RCA (can be completed in this center or in [place]). Initially was on heparin drip, now on therapeutic enoxaparin for A-fib. Echocardiogram: LVEF 20%, moderate LV enlargement, severe end stage HF, RV dysfunction, moderate MAC, mild MR and TR, moderate pulmonary HTN Will repeat echocardiogram in 1 week. Currently on mechanical assisted ventilation Avoid QT prolonging medication Replenish electrolytes. Goal magnesium above 2 and goal potassium above 4. On insulin sliding scale Rest of management per primary team (on IV antibiotics) Goals of care discussed with (Myrna) for over 18 minutes: Full code status Discussed plan with Dr. Pierre, and nurses: Patient currently ICU status due to mechanical assisted ventilation and off vasopressors. Completed initial coronary angiography on 06/29/2025 which showed triple-vessel disease with acute circumflex occlusion status post PCI with 4 STANLEY placed, staged procedure to LAD with 3 STANLEY on 07/05/2025. Planning on new stage procedure to RCA and repeat echocardiogram on Thursday07/12/2025. Optimize electrolytes, avoid QT prolonging medication. Patient has poor prognosis. Critical care time spent including discussion with nursing and family, excluding procedures: 63 minutes. Plan discussed with: Spouse, Other (Nurses) My Orders My Orders Orders - JOSELYN STEIN Procedure Category Date Status Time Npo Except For GRADY 07/12/25 In Process Medications 00:01 Obtain Consent For: ORDERS 07/11/25 Transmitted 13:32 Hold Enoxaparin Day [facility] 07/12/25 In Process Of Procedu 00:01 Shave Both Groins [facility] 07/11/25 In Process 13:32 Provide Education [facility] 07/11/25 In Process Materials 13:32 Cl Left Heart Cath CL 07/11/25 Logged 13:32 Comprehensive LAB 07/13/25 Verified Metabolic Panel 04:00 Npo (Nothing By DIET 07/12/25 Transmitted Mouth) Diet Breakfast Npo (Nothing By DIET 07/11/25 Transmitted Mouth) Diet Dinner Obtain Consent For [facility] 07/11/25 In Process Anesthesia 13:32 Dietary Evaluation Review Comments: 1. Protein needs based on 1.2-1.5g/protein/kg IBW d/t low GFR 2. While being intubated, offer TF Vital HP @45ml/hr, in 24 hr, Pt will receive 94g protein, 1080lkcal 903ml free water, meeting pts needs at 97% protein and 100% energy. 3. Consider TPN to meet pt's needs if Pt does not tolerate TF well. 4. Reassess when pt extubated, advance to CCHO-60 PO diet after passing a [employer] evluation. Expected Outcomes/Goals: off intubation, advance to CCHO-60 Cardiac diet, gradual wt loss Visit Coding Cardiology RES Date of Service: Jul 11, 2025 Billing Provider: PHILLIP PIERRE Sr., MD Cardiology Common Codes: [id number] HOSP CARE(High Cardiology Secondary Visit Cod: [id number] CARE PLAN 30 MINUTES JOSELYN STEIN RESIDENT Jul 11, 2025 15:34
[2025-07-12] VITALS (104 sets, daily range): BP systolic 80–158; BP diastolic 28–82; PULSE 87–155; RESP 13–42; TEMP 97.2–98.8; O2SAT 95–100
[2025-07-12 03:37] LABS: Hematocrit 26.2 % (41.0-53.0); Hemoglobin 8.6 g/dL (13.5-17.5); Mean Corpuscular Hemoglobin 27.4 pg (28.0-32.0); Mean Corpuscular Volume 83.2 fL (80.0-100.0); Nucleated Red Blood Cells % 0.0 %
[2025-07-12 03:52] LABS: Alanine Aminotransferase 17 U/L (7-40); Anion Gap 6 (5-15); BUN/Creatinine Ratio 35.8 (10.0-20.0); Carbon Dioxide 29 mmol/L (20-31); Chloride 106 mmol/L (98-107); Magnesium 2.1 mg/dL (1.6-2.6); Potassium 4.6 mmol/L (3.5-5.1); Sodium 141 mmol/L (136-145)
[2025-07-12 03:53] LABS: Bilirubin, Total 0.7 mg/dL (0.2-1.0)
[2025-07-12 03:56] LABS: Albumin 2.4 g/dL (3.2-4.8); Alkaline Phosphatase 119 U/L (46-116); Blood Urea Nitrogen 29 mg/dL (9-23); Calcium 7.7 mg/dL (8.7-10.4); Glucose 223 mg/dL (74-106); Total Protein 5.5 g/dL (5.7-8.2)
--- NOTE | 2025-07-12 05:12 | DVH ---
CHEST RADIOGRAPH Indication: on vent Technique: Single frontal view of the chest was obtained COMPARISON: XY CHEST XRAY 1 VIEW on DOS: 07/11/25, XY CHEST XRAY 1 VIEW on DOS: 07/10/25, XY CHEST XRAY 1 VIEW on DOS: 07/09/25, XY CHEST XRAY 1 VIEW on DOS: 07/08/25, XY CHEST XRAY 1 VIEW on DOS: 07/07/25 FINDINGS: Lines and Tubes: Interval advancement of the endotracheal tube such that the tip now projects approximately 1.9 cm above the level of the kolby. Remaining lines and tubes unchanged. Lungs: Grossly stable appearing bilateral pleural effusions and bibasilar pulmonary airspace disease. Left costophrenic sulcus excluded. No pneumothorax. Cardiomediastinal contours: Cardiomegaly. Bones: Unremarkable IMPRESSION: 1. Interval advancement of the endotracheal tube such that the tip now projects approximately 1.9 cm above the level of the kolby. Remaining lines and tubes unchanged. 2. Stable bilateral pleural effusions and bibasilar pulmonary airspace disease. 3. Cardiomegaly.
[2025-07-12 06:15] LABS: Base Excess 2.0 mmol/L (-2.0-3.0)
[2025-07-12] MEDS: DIGOXIN (250MCG/ML) 2 ML AMPULE IV SCH (10:09)
--- NOTE | 2025-07-12 10:25 | DVHPN2 ---
Consult Progress Note Date Seen: Jul 12, 2025 Subjective Other Systems: No overnight cardiac events reported Objective vital signs Vital Sign Date Time Temp Pulse Resp B/P (MAP) Pulse Ox O2 Delivery O2 Flow Rate FiO2 07/12/25 10:09 103 07/12/25 09:19 18 102/51 (68) 99 30 07/12/25 08:30 97.3 97.3 07/12/25 08:00 Mechanical Ventilator+ Total Intake and Output 07/11/25 07/11/25 07/12/25 15:00 23:00 07:00 Intake Total 406.425 ml 636.0 ml 440.0 ml Output Total 550 ml 375 ml Balance 406.425 ml 86.0 ml 65.0 ml medications Current Medications Medications Dose Ordered Sig/Jesse Route Start Time Stop Time Status Last Admin Dose Admin Atorvastatin Calcium 40 mg HS PO 06/29/25 22:00 07/11/25 21:46 40 MG Norepinephrine Bitartrate 250 ml @ 3.75 mls/hr Q24H IV 06/29/25 06:15 07/05/25 06:45 3.75 MLS/HR Fentanyl Citrate 250 ml @ 2.5 mls/hr Q24H IV 06/29/25 06:15 07/12/25 05:38 17.5 MLS/HR Aspirin 81 mg DAILY PO 06/30/25 10:00 07/12/25 10:07 81 MG Insulin Human Regular HS SC 06/29/25 22:00 Cancel Insulin Human Regular AC SC 06/29/25 17:00 Cancel Pantoprazole Sodium 40 mg DAILY IV 06/30/25 10:00 07/12/25 10:08 40 MG Clopidogrel Bisulfate 75 mg DAILY PO 06/30/25 10:00 07/12/25 10:06 75 MG Diagnostic Test (Pha) 1 strip IQ4HR 06/29/25 20:00 07/12/25 09:05 1 STRIP Insulin Human Regular IQ4HR SC 06/29/25 20:00 07/12/25 09:04 3 UNITS Dextrose 50 ml UD PRN IV 06/29/25 17:30 Midazolam HCl 100 ml @ 1 mls/hr Q24H IV 06/29/25 18:00 07/11/25 16:56 8 MLS/HR Enoxaparin Sodium 100 mg Q12HR SC 06/30/25 10:00 11/4/25 21:46 100 MG Enteral Nutritional Formula 1,000 ml 45ML/HR GT 06/30/25 17:15 07/01/25 07:29 1,000 ML Acetaminophen 650 mg Q4HP PRN PO 07/01/25 17:00 07/03/25 00:43 650 MG Vancomycin HCl 0 ml @ 0 mls/hr PER PHARMACY IV 07/02/25 13:15 Meropenem 50 ml @ 17 mls/hr Q8HR IV 07/04/25 22:00 07/12/25 05:42 17 MLS/HR Insulin Glargine 12 units HS SC 07/06/25 22:00 07/11/25 21:51 12 UNITS Polyethylene Glycol 17 gm DAILY PO 07/08/25 10:00 07/12/25 10:07 17 GM Propofol 100 ml @ 3.225 mls/ hr Q24H IV 07/08/25 09:45 07/11/25 08:43 16.125 MLS/HR Vancomycin HCl 100 ml @ 100 mls/hr Q12H IV 07/10/25 23:00 07/12/25 00:17 100 MLS/HR Sennosides 8.6 mg HS PO 07/10/25 22:00 07/11/25 21:46 8.6 MG Digoxin 250 mcg DAILY IV 07/12/25 10:00 07/12/25 10:09 250 MCG Lactulose 30 ml DAILY PO 07/12/25 10:00 UNV Examination: GENERAL:Abnormal, LUNGS:Abnormal (Endotracheally intubated 30% FiO2), CVS:Abnormal (A-fib low 100s bpm. Off vasopressors), NEURO:Abnormal (Chemically sedated) laboratory and microbiology Laboratory Tests 07/12/25 03:00 Test 07/12/25 03:00 Range/Units Serum Glucose 223 H 74-106 mg/dL Problem List/Assessment/Plan Problem List/Assessment/Plan Cardiac arrest secondary to ventricular arrhythmia (ventricular tachycardia and torsades de Pointe) - status post ROSC Acute respiratory failure NSTEMI type 1 - status post PCI with 4 STANLEY to circumflex and 3 STANLEY to LAD Newly diagnosed coronary artery disease - triple-vessel disease Prolonged QT Paroxysmal atrial fibrillation with RVR (chads Vasc 7) - secondary hypercoagulability state Metabolic acidosis with elevated anion gap secondary to hyperlacticacidemia KEANU hemodynamically mediated (VMN) 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 Initial ventriculogram shows LVEF of 15%. Revascularized culprit vessel. Completed stage procedure to LAD on 07/05/2025. Planning on completing staged RCA (can be completed in this center or in [place]). Initially was on heparin drip, now on therapeutic enoxaparin for A-fib. Echocardiogram: LVEF 20%, moderate LV enlargement, severe end stage HF, RV dysfunction, moderate MAC, mild MR and TR, moderate pulmonary HTN Will repeat echocardiogram in 1 week. Currently on mechanical assisted ventilation Avoid QT prolonging medication Replenish electrolytes. Goal magnesium above 2 and goal potassium above 4. On insulin sliding scale Rest of management per primary team (on IV antibiotics) Plan: Patient currently ICU status due to mechanical assisted ventilation and off vasopressors. Completed initial coronary angiography on 06/29/2025 which showed triple-vessel disease with acute circumflex occlusion status post PCI with 4 STANLEY placed, staged procedure to LAD with 3 STANLEY on 07/05/2025. Planning on new stage procedure to the RCA, CALVIN and DCCV on Thursday07/12/2025. All information and consents has been obtained from next of kin/ (Myrna Almanza) who agreed with interventions, all questions answered. Optimize electrolytes, avoid QT prolonging medication. Patient has poor prognosis. Goals of care discussed with : Full code status. Critical care time spent including discussion with nursing and family, excluding procedures: 43 minutes. Plan discussed with: Spouse, Other Dietary Evaluation Review Comments: 1. Protein needs based on 1.2-1.5g/protein/kg IBW d/t low GFR 2. While being intubated, offer TF Vital HP @45ml/hr, in 24 hr, Pt will receive 94g protein, 1080lkcal 903ml free water, meeting pts needs at 97% protein and 100% energy. 3. Consider TPN to meet pt's needs if Pt does not tolerate TF well. 4. 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 Expected Outcomes/Goals: off intubation, advance to CCHO-60 Cardiac diet, gradual wt loss Date of Service: Jul 12, 2025 Billing Provider: ELMO NICHOLAS Cardiology Common Codes: 21780-[id number] CARE 30-74 MIN ELMO NICHOLAS Jul 12, 2025 10:25
[2025-07-12] MEDS: LACTULOSE 20Gm/30ML SOLN PO SCH (11:05)
--- NOTE | 2025-07-12 13:25 | DVHPNRES ---
Progress Note Date Seen: Jul 12, 2025 Resident Creating Document: CYNTHIA LOVE RESIDENT Medical Necessity Reason Pt with a Central, PICC or Fol: Yes The following are medically ne: Central Line, Lau Catheter Reason for lau catheter: Strict I&O Subjective Review of Systems Patient is a 74-year-old male with past medical history of hypertension, diabetes type 2, dyslipidemia, paroxysmal atrial fibrillation, CVA in 2019, presented to the ED with chief complaints of 3 days of palpitations, shortness of breath before his admission. On arrival to the ED patient was found to have atrial fibrillation with RVR and was started on a diltiazem drip to control his heart rate. Patient progressed to have cardiac arrest secondary to ventricular arrhythmias possibly ventricular tachycardia or torsades de Pointe. Patient required CPR and ACLS maneuvers for 8 minutes followed by endotracheal intubation, obtained by ROSC. Patient was initially on amiodarone drip which was later discontinued after magnesium was given for QT prolongation. Due to clinical status obtained history of present illness and past medical history from EMR and who is at bedside. Could not obtain review of systems. Cardiology consulted for elevated troponins. Past medical history: Hypertension, dyslipidemia, diabetes, paroxysmal atrial fibrillation diagnosed in 2017 (chads Vasc 7), 2019 CVA Past surgical history: Appendectomy Family history: Two brothers had heart disease requiring CABG at the age of 40 and 50 respectively, brother had lung cancer, mother had breast cancer Social history: with . Ex tobacco abuse (eight pack-year history of smoking) quit 30 years ago. Denies current tobacco, alcohol and other drug abuse Allergies: Denies Home medication: Pradaxa 150 mg p.o. daily, atorvastatin 40 mg p.o. daily, hydrochlorothiazide 12.5 mg p.o. daily, lisinopril 20 mg p.o. daily, glipizide, metformin a 1000 mg p.o. b.i.d., metoprolol (he quit taking for four months since it made him tired). 06/30/25: Patient seen and examined at bedside. Patient is currently sedated and on mechanically ventilation, with ventilator settings at tidal volume 500, FiO2 30%, peep at 5, off of pressors phenylephrine and norepinephrine. 07/01/2025: Patient seen and examined at bedside. Patient is currently sedated and mechanically ventilated. Patient today has fever and elevated WBC, blood culture ordered. Patient is on pressor Levophed 9, patient's HR 150- 160s, order was given of metoprolol IV 5 mg with partial control of the RVR, also digoxin loading dose given. Metoprolol 25 mg PO daily was also placed for tomorrow. 07/02/2025: Patient seen and examined in ICU. Hr is under controlled. Intubated. temperature 99.3 started cefepime and vancomycin. blood culture G + bacteria. 07/03/2025 :Patient seen and examined in the ICU. Patient heart rate is under control, patient is intubated, mechanically ventilated, temperature 100.6. continue cefepime, vancomycin. Repeat blood cultures were ordered.(Staph coagulase negative, could be contaminate). Planning on performing LHC on Thursday07/05/2025, have informed . 07/04/2025: Patient seen and examined in ICU. Patient is mechanically intubated, patient had a fever yesterday night but decreased. Sputum culture showed Gram-negative rods. Discontinued cefepime. Started meropenem, 12.5 metoprolol b.i.d. Repeat blood cultures are negative. Planning on performing LHC on Thursday07/05/2025, have informed . 07/05/25: Patient seen and examined in ICU. Patient is mechanically intubated, patient had Bradycardia overnight for wich metoprlol was held. LHC was done today with 3 stents placed in the LAD. Possible RHC to be done. 07/06/2025: patient seen and examined in ICU. Patient is mechanically ventilated, had a left heart catheterization done yesterday with 3 stents placed in the LAD, Planning to do next procedure in one week to RCA. 07/07/2025: patient seen and examined in ICU. Patient is mechanically ventilated, had a left heart catheterization done yesterday with 3 stents placed in the LAD, CPAP trial done today, failed, we will try again tomorrow. 07/08/2025:patient seen and examined in ICU . on ventilator. CPAP trial failed, become tachypneic. we will try again. 07/09/2025: Patient seen and examined in ICU, on ventilator, overnight patient had AFib with RVR, so CPAP trial was deferred for today. We will try again tomorrow. discontinue metoprolol, patient's last bowel movement was on the so lactulose was given. Patient's WBC is 17.1. Cardiology following. Patient is to have a heart catheterization on Thursday. 07/10/2025: Patient seen and examined in ICU. on ventilator, no overnight events were noted. No CPAP trial until procedure on Thursday. Patient's last bowel movement was on the , senna was added, patient started on digoxin. 07/11/2025: Patient seen in examined in the ICU. patient is still on ventilator, on minimal ventilator settings, tidal volume was changed to 400. Patient has not had a bowel movement since , but abdomen soft. Patient is on fentanyl 175, propofol 24. chest ultrasound showed trace pleural effusion on the right side. Patient is to have heart catheterization tomorrow. 07/12/2025: Patient seen and examined in the ICU. patient is still on ventilator, on minimal ventilator settings, tidal volume was changed to 400. Patient underwent CALVIN, and is to undergo left heart cath today. Objective vital signs Vital Sign Date Time Temp Pulse Resp B/P (MAP) Pulse Ox O2 Delivery O2 Flow Rate FiO2 07/12/25 13:15 103 18 108/42 (64) 96 30 07/12/25 12:30 98.2 208.8 07/12/25 12:00 Mechanical Ventilator+ Total Intake and Output 07/11/25 07/11/25 07/12/25 15:00 23:00 07:00 Intake Total 406.425 ml 636.0 ml 440.0 ml Output Total 550 ml 375 ml Balance 406.425 ml 86.0 ml 65.0 ml medications Current Medications Medications Dose Ordered Sig/Jesse Route Start Time Stop Time Status Last Admin Dose Admin Atorvastatin Calcium 40 mg HS PO 06/29/25 22:00 07/11/25 21:46 40 MG Norepinephrine Bitartrate 250 ml @ 3.75 mls/hr Q24H IV 06/29/25 06:15 07/05/25 06:45 3.75 MLS/HR Fentanyl Citrate 250 ml @ 2.5 mls/hr Q24H IV 06/29/25 06:15 07/12/25 05:38 17.5 MLS/HR Aspirin 81 mg DAILY PO 06/30/25 10:00 07/12/25 10:07 81 MG Insulin Human Regular HS SC 06/29/25 22:00 Cancel Insulin Human Regular AC SC 06/29/25 17:00 Cancel Pantoprazole Sodium 40 mg DAILY IV 06/30/25 10:00 07/12/25 10:08 40 MG Clopidogrel Bisulfate 75 mg DAILY PO 06/30/25 10:00 07/12/25 10:06 75 MG Diagnostic Test (Pha) 1 strip IQ4HR 06/29/25 20:00 07/12/25 12:08 1 STRIP Insulin Human Regular IQ4HR SC 06/29/25 20:00 07/12/25 12:10 3 UNITS Dextrose 50 ml UD PRN IV 06/29/25 17:30 Midazolam HCl 100 ml @ 1 mls/hr Q24H IV 06/29/25 18:00 07/12/25 11:57 5 MLS/HR Enoxaparin Sodium 100 mg Q12HR SC 06/30/25 10:00 07/11/25 21:46 100 MG Enteral Nutritional Formula 1,000 ml 45ML/HR GT 06/30/25 17:15 07/01/25 07:29 1,000 ML Acetaminophen 650 mg Q4HP PRN PO 07/01/25 17:00 07/03/25 00:43 650 MG Vancomycin HCl 0 ml @ 0 mls/hr PER PHARMACY IV 07/02/25 13:15 Meropenem 50 ml @ 17 mls/hr Q8HR IV 07/04/25 22:00 07/12/25 05:42 17 MLS/HR Insulin Glargine 12 units HS SC 07/06/25 22:00 07/11/25 21:51 12 UNITS Polyethylene Glycol 17 gm DAILY PO 07/08/25 10:00 07/12/25 10:07 17 GM Propofol 100 ml @ 3.225 mls/ hr Q24H IV 07/08/25 09:45 07/11/25 08:43 16.125 MLS/HR Vancomycin HCl 100 ml @ 100 mls/hr Q12H IV 07/10/25 23:00 07/12/25 11:06 100 MLS/HR Sennosides 8.6 mg HS PO 07/10/25 22:00 07/11/25 21:46 8.6 MG Digoxin 250 mcg DAILY IV 07/12/25 10:00 07/12/25 10:09 250 MCG Lactulose 30 ml DAILY PO 07/12/25 10:00 07/12/25 11:05 30 ML Examination General: intubated, sedated HEENT: Normocephalic, atraumatic, moist mucous membranes Respiratory/pulmonary: Clear lungs bilaterally, vesicular murmurs present in almost all lung roberts, no associated crackles or wheezes. Cardiovascular: Normal heart sounds S1 and S2 with no associated murmurs Abdomen: Abdomen nondistended, there is no pain to palpation in any of the abdominal quadrants, no palpable masses. Extremities: There is no peripheral edema present at the lower extremities. Bilateral erythematous and ulcerated lesions. Skin: No rashes or pruritus, there is no sacral edema present at this time. laboratory and microbiology Laboratory Tests 07/12/25 03:00 Test 07/12/25 03:00 Range/Units Serum Glucose 223 H 74-106 mg/dL Microbiology Date/Time Source Procedure Growth Status 07/03/25 16:00 Sputum Gram Stain - Final Complete 07/03/25 16:00 Respiratory Culture - Final Pseudomonas aeruginosa Serratia marcescens Complete 07/03/25 09:40 Blood Blood Culture - Final NO GROWTH AFTER 5 DAYS OF INCUBATION. Complete 07/01/25 22:35 Urine - Catheterized Urine Culture - Final Complete 06/29/25 04:30 Nose MRSA Screen - Final Complete Problem List/Assessment/Plan Problem List/Assessment/Plan Neurology Acute metabolic encephalopathy History of CVA-with residual aphasia, right-sided deficit -Sedation/neurological status: Rass score -3 - off of Levophed, phenylephrine Cardiology Cardiac arrest secondary to ventricular arrhythmia (ventricular tachycardia, torsade de pointes) NSTEMI type 1 status post PCI Newly diagnosed coronary artery disease - triple-vessel disease Prolonged QT Paroxysmal atrial fibrillation with RVR Hypertension Dyslipidemia - EKG showed atrial fibrillation with anterior T-wave inversions, prolonged QT - coronary angiography showed severe triple-vessel disease with acutely occluded circumflex status post PCI with 1 drug-eluting stent placed. -ventriculogram showed LVEF of 15% - ordered echocardiography, lvef 20%, moderate LV enlargement, severe end stage HF - avoid QT prolongation medications - Dany Vasc score 7 -currently on vasopressors Levophed, phenylephrine -severe CAD in LAD and RCA, plan to do angiography on Thursday -patient given aspirin, atorvastatin, clopidogrel - ordered 12.5 metoprolol tartrate b.i.d. - C done (07/05) with 3 stents placed in LAD. - Planning on new stage procedure to RCA on Thursday. Repeat echocardiogram. - digoxin 250 mcg added, Respiratory Acute hypoxic respiratory failure likely due to cardiac arrest Possible Aspiration Pneumonia -ventilator settings: VT 500, respiratory rate 17, FiO2 30 %, PEEP 5 -chest x-ray: Similar bilateral inferior graded opacities, likely a combination of airspace disease and pleural effusion. Genitourinary/kidney Acute kidney injury likely due to be VMN -medication: Given Lasix 20 mg once -strict I&Os -nephrotoxic drugs Endocrine Uncontrolled diabetes mellitus, HbA1c 10.6 - on insulin sliding scale Infectious Septic shock due to Aspiration pneumonia -urine culture preliminary negative -blood cultures ordered, as WBC elevated and fever present -blood culture showed positive staph coagulase negative. - repeat blood cultures negative - Respiratory culture (07/03) - Pseudomonas aeruginosa - IV vancomycin, meropenem started(07/04) Transaminitis - monitor labs Obesity BMI 33.0 Lines / Tubes / Devices Airway: Intubated via ETT on 06/29 Vascular Access: Central line 06/29 Drips: Fentanyl, midazolam, norepinephrine, phenylephrine, Versed Prophylaxis / Supportive Care DVT Prophylaxis: Lovenox. GI Prophylaxis: Protonix. Goals of care discussed with the patient family for more than 29 minutes: Full code state Patient care updated to (Myrna), addressed all concerns. Critical care time spent excluding procedures 82 minutes Plan discussed with Dr. Waters and RN Plan discussed with: Spouse My Orders My Orders Orders - CYNTHIA LOVE RESIDENT Procedure Category Date Status Time Digoxin Injection PHA 07/12/25 In Process (Lanoxin Injection) 10:00 Respiratory Culture JONNY 07/11/25 Logged W/ Gs 13:35 Blood Culture JONNY 07/11/25 In Process 13:35 Chest Xray 1 View XY 07/12/25 Resulted 04:00 Abg W/ Co-Ox RT 07/12/25 Logged 04:00 Dietary Evaluation Review Comments: 1. Protein needs based on 1.2-1.5g/protein/kg IBW d/t low GFR 2. While being intubated, offer TF Vital HP @45ml/hr, in 24 hr, Pt will receive 94g protein, 1080lkcal 903ml free water, meeting pts needs at 97% protein and 100% energy. 3. Consider TPN to meet pt's needs if Pt does not tolerate TF well. 4. 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 Expected Outcomes/Goals: off intubation, advance to CCHO-60 Cardiac diet, gradual wt loss Date of Service: Jul 12, 2025 Billing Provider: YOBANY AGUIRRE MD Common Visit Codes: 03278-[id number] CARE 30-74 MIN, [id number] CARE-EACH +30MIN CYNTHIA LOVE RESIDENT Jul 12, 2025 13:25 YOBANY AGUIRRE MD Jul 13, 2025 12:16
[2025-07-12] MEDS: HEPARIN 1,000 UNITS/ml 1ML VIAL ONE (17:46)
[2025-07-12] MEDS: SODIUM CHL 0.9% 50 ML ONE ×3 (17:57→18:46)
[2025-07-12] MEDS: ANGIOMAX 250 MG VIAL IV ONE ×2 (17:57→18:46)
[2025-07-12] MEDS: LIDOCAINE 2%HCL (LOCAL ANESTH.) INJ 20ML MDV ONE (18:00)
[2025-07-12] MEDS: VERAPAMIL 2.5MG/ML INJ 2ML VIAL IV ONE (18:01)
[2025-07-12] MEDS: AMIODARONE HCL (50 MG/ ML) 3 ML VIAL IV ONE (18:18)
--- NOTE | 2025-07-12 19:10 | DVHOP2 ---
Operative Report - 2 Report Details Date: 07/12/25 Preop Diagnosis: Severe CAD. Postop Diagnosis: Atrial fibrillation. Coronary artery disease Surgeon: Phillip Mtz MD Anesthesiologist: Conscious sedation Anesthesia: Mac, Local Consent: The patient was informed of the risks and benefits of the procedure. These include but are not limited to complications of anesthesia, postoperative infection, incomplete relief of symptoms, recurrence of symptoms, damage to blood vessels, nerves and tendons, deep venous thrombosis, pulmonary embolism and possible need for repeat surgery in the future. Complications: No complications Indications for Surgery: Severe stenosis of RCA Name of Procedure Performed PTCA of mid RCA. Shockwave lithotripsy of the mid RCA. Attempted DC cardioversion of atrial fibrillation, (unsuccessful) Procedure Details Procedure Details: Prior local anesthesia with 2% lidocaine to the right wrist and full informed consent obtained the patient was prepped and draped in usual fashion followed by placement of a six Slovak slender sheath into the radial artery followed by placement of a three five EBU guide for angioplasty and stenting of the RCA. Hemodynamics: Aortic blood pressure was 100/50. End-diastolic pressure was not measured. Coronary anatomy: The RCA is a large dominant vessel. It has moderate plaquing in his proximal and mid section. There was significant calcification of the mid and distal RCA T Ventriculography was not performed. Angioplasty was attempted with a 3.5 EBU guide which was then placed into the RCA. A Specter wire was used to cross the area of stenosis. We used a two five balloon to perform angioplasty on the mid RCA however we were unable to cross into the smaller sec shunt of the RCA also heavily calcified. We tried noncompliant balloons. It appears that the vessel was improving slightly and we tried a 2.5 shockwave balloon and performed retreat months. The balloon ruptured causing no eventualities and/or dissections. The vessel was intact. We were unable to pass a one five balloon distally. The indication for orbital atherectomy was considered however the patient has markedly diminished left ventricular function and an Impella device would be subsequently required. Given his frailty it was felt that the procedure would be too high risk at this time. The procedure was then terminated. Patient remained with BABATUNDE two flow without the ability to open the pre-existing lesion considered to be 75-80% stenosis at its mid to distal segment. We then attempted cardioversion at 1:20 a.m. joules which was unsuccessful and 200 joules consecutively also unsuccessful. Impression unsuccessful PTCA of the mid RCA. Unsuccessful cardioversion. Recommendations: Suggest EP evaluation for AV node ablation and/or cardioversion after attempted ablation of atrial fibrillation. Condition Guarded Disposition Still a Patient Date of Service: Jul 12, 2025 Billing Provider: PHILLIP MTZ Sr., MD Cardiology Common Codes: [id number] INP/OBS CARE (High) Cardiology Procedure Codes: [id number] VESSEL W/I VASC FAM (Shockwave lithotripsy and attempted angioplasty of mid to distal RCA) PHILLIP MTZ Sr., MD Jul 12, 2025 19:10
[2025-07-12] MEDS: ROCURONIUM 10MG/ML 10ML VIAL IV ONE ×2 (20:39→20:46)
[2025-07-12] MEDS: ETOMIDATE (2MG/ML) 20ML VIAL IV ONE (20:46)
--- NOTE | 2025-07-12 21:04 | DVH ---
CHEST RADIOGRAPH Indication: TUBE EXCHANGE/ NG PLACEMENT Technique: Single frontal view of the chest was obtained COMPARISON: XY CHEST XRAY 1 VIEW on DOS: 07/12/25, XY CHEST XRAY 1 VIEW on DOS: 07/11/25, US CHEST ULTRASOUND on DOS: 07/10/25, XY CHEST XRAY 1 VIEW on DOS: 07/10/25, XY CHEST XRAY 1 VIEW on DOS: 07/09/25 FINDINGS: Lines and Tubes: Endotracheal tube, enteric catheter and right PICC in satisfactory position. Lungs: Unchanged multifocal airspace disease. Pleura: No effusion.No pneumothorax. Cardiomediastinal contours: Unremarkable Bones: Unremarkable IMPRESSION: Lines and tubes in satisfactory position. No significant interval change.
[2025-07-12] MEDS: METOPROLOL TARTRATE 1MG/1ML-5ML VIAL IV ONE (22:13)
[2025-07-13] VITALS (113 sets, daily range): BP systolic 79–163; BP diastolic 33–70; PULSE 66–133; RESP 10–30; TEMP 97–100.2; O2SAT 94–100
[2025-07-13 03:49] LABS: Hemoglobin 8.2 g/dL (13.5-17.5); Nucleated Red Blood Cells % 0.0 %
[2025-07-13 03:51] LABS: Hematocrit 24.9 % (41.0-53.0); Mean Corpuscular Hemoglobin 27.4 pg (28.0-32.0); Mean Corpuscular Volume 82.8 fL (80.0-100.0)
[2025-07-13 04:10] LABS: Alanine Aminotransferase 14 U/L (7-40); Alkaline Phosphatase 111 U/L (46-116); Anion Gap 7 (5-15); BUN/Creatinine Ratio 29.3 (10.0-20.0); Carbon Dioxide 28 mmol/L (20-31); Chloride 107 mmol/L (98-107); Magnesium 2.2 mg/dL (1.6-2.6); Sodium 142 mmol/L (136-145); Total Protein 6.1 g/dL (5.7-8.2)
[2025-07-13 04:11] LABS: Bilirubin, Total 0.7 mg/dL (0.2-1.0)
[2025-07-13 04:22] LABS: Albumin 2.7 g/dL (3.2-4.8); Blood Urea Nitrogen 24 mg/dL (9-23); Calcium 7.9 mg/dL (8.7-10.4); Glucose 188 mg/dL (74-106); Potassium 5.2 mmol/L (3.5-5.1)
[2025-07-13] MEDS: ALBUTEROL SULF 2.5 MG/0.5ML(0.5%) NEB SOLN NEB ONE (04:58)
[2025-07-13] MEDS: InsuLIN REG 1unit/0.01ml Soln (100units/ml) IV ONE (05:23)
[2025-07-13] MEDS: SODIUM BICARB 8.4% 50Meq/50ml SYR INJ IV ONE (05:24)
[2025-07-13] MEDS: DEXTROSE (50%) 50ML SYRG IV ONE (05:24)
--- NOTE | 2025-07-13 06:01 | DVH ---
CHEST RADIOGRAPH Indication: on vent Technique: Single frontal view of the chest was obtained COMPARISON: XY CHEST PORTABLE on DOS: 07/12/25, XY CHEST XRAY 1 VIEW on DOS: 07/12/25, XY CHEST XRAY 1 VIEW on DOS: 07/11/25, US CHEST ULTRASOUND on DOS: 07/10/25, XY CHEST XRAY 1 VIEW on DOS: 07/10/25 FINDINGS: Lines and Tubes: Unchanged. Lungs: Stable bilateral pleural effusions and bibasilar pulmonary airspace disease. No pneumothorax. Cardiomediastinal contours: Cardiomegaly. Bones: Unremarkable IMPRESSION: 1. Stable bilateral pleural effusions and Bibasilar pulmonary airspace disease. 2. Cardiomegaly. 3. Lines and tubes unchanged.
[2025-07-13 07:11] LABS: Base Excess 4.8 mmol/L (-2.0-3.0)
--- NOTE | 2025-07-13 11:15 | MEDREC ---
[facility] ASP Intervention Section I [facility] ASP Intervention: Deescalate AB based on CS (PLEASE CONSIDER DE-ESCALATION TO ZOSYN OR CEFEPIME BASED ON CULTURE RESULTS AND SUSCEPTIBILITIES), Review courses of therapy (Consider de-escalatating meropenem to avoid superinfection. Suseptibility report displays susceptibility to Zosyn. Please switch to Zosyn. ) LIBBY GIRALDO [facility] RESIDENT Jul 13, 2025 11:15
--- NOTE | 2025-07-13 11:49 | DVHPN2 ---
Consult Progress Note Date Seen: Jul 13, 2025 Subjective Other Systems: No overnight cardiac events reported Objective vital signs Vital Sign Date Time Temp Pulse Resp B/P (MAP) Pulse Ox O2 Delivery O2 Flow Rate FiO2 07/13/25 10:37 101 07/13/25 10:02 20 124/40 (68) 99 30 07/13/25 07:16 Mechanical Ventilator+ 07/13/25 04:30 99.9 211.8 Total Intake and Output 07/12/25 07/12/25 07/13/25 14:59 22:59 06:59 Intake Total 330.0 ml 446.0 ml 299.5 ml Output Total 375 ml 600 ml Balance 330.0 ml 71.0 ml -300.5 ml medications Current Medications Medications Dose Ordered Sig/Jesse Route Start Time Stop Time Status Last Admin Dose Admin Atorvastatin Calcium 40 mg HS PO 06/29/25 22:00 07/11/25 21:46 40 MG Norepinephrine Bitartrate 250 ml @ 3.75 mls/hr Q24H IV 06/29/25 06:15 07/05/25 06:45 3.75 MLS/HR Fentanyl Citrate 250 ml @ 2.5 mls/hr Q24H IV 06/29/25 06:15 07/13/25 05:15 22.5 MLS/HR Aspirin 81 mg DAILY PO 06/30/25 10:00 07/13/25 10:08 81 MG Insulin Human Regular HS SC 06/29/25 22:00 Cancel Insulin Human Regular AC SC 06/29/25 17:00 Cancel Pantoprazole Sodium 40 mg DAILY IV 06/30/25 10:00 07/13/25 10:08 40 MG Clopidogrel Bisulfate 75 mg DAILY PO 06/30/25 10:00 07/13/25 10:08 75 MG Diagnostic Test (Pha) 1 strip IQ4HR 06/29/25 20:00 07/13/25 08:26 1 STRIP Insulin Human Regular IQ4HR SC 06/29/25 20:00 07/13/25 08:47 3 UNITS Dextrose 50 ml UD PRN IV 06/29/25 17:30 Midazolam HCl 100 ml @ 1 mls/hr Q24H IV 06/29/25 18:00 07/13/25 10:10 10 MLS/HR Enoxaparin Sodium 100 mg Q12HR SC 06/30/25 10:00 07/12/25 21:12 100 MG Enteral Nutritional Formula 1,000 ml 45ML/HR GT 06/30/25 17:15 07/01/25 07:29 1,000 ML Acetaminophen 650 mg Q4HP PRN PO 07/01/25 17:00 07/03/25 00:43 650 MG Vancomycin HCl 0 ml @ 0 mls/hr PER PHARMACY IV 07/02/25 13:15 Meropenem 50 ml @ 17 mls/hr Q8HR IV 07/04/25 22:00 07/13/25 05:12 17 MLS/HR Insulin Glargine 12 units HS SC 07/06/25 22:00 07/12/25 21:10 12 UNITS Polyethylene Glycol 17 gm DAILY PO 07/08/25 10:00 07/13/25 10:07 17 GM Propofol 100 ml @ 3.225 mls/ hr Q24H IV 07/08/25 09:45 07/11/25 08:43 16.125 MLS/HR Vancomycin HCl 100 ml @ 100 mls/hr Q12H IV 07/10/25 23:00 07/13/25 10:38 100 MLS/HR Sennosides 8.6 mg HS PO 07/10/25 22:00 07/11/25 21:46 8.6 MG Digoxin 250 mcg DAILY IV 07/12/25 10:00 07/13/25 10:37 250 MCG Lactulose 30 ml DAILY PO 07/12/25 10:00 07/13/25 10:07 30 ML Examination: GENERAL:Abnormal, LUNGS:Abnormal (Endotracheally intubated 30% FiO2), CVS:Normal (A-fib low 100s bpm. Off vasopressors), NEURO:Abnormal (Chemically sedated) laboratory and microbiology Laboratory Tests 07/13/25 08:45 07/13/25 03:00 Test 07/13/25 03:00 Range/Units Serum Glucose 188 H 74-106 mg/dL Problem List/Assessment/Plan Problem List/Assessment/Plan Cardiac arrest secondary to ventricular arrhythmia (ventricular tachycardia and torsades de Pointe) - status post ROSC NSTEMI type 1 - status post PCI with 4 STANLEY to circumflex and 3 STANLEY to LAD Newly diagnosed coronary artery disease - triple-vessel disease De Sarabjit Decompensated HFrEF, NYHA Class IV Paroxysmal atrial fibrillation with RVR ([id number] Score 7) - secondary hypercoagulability state Prolonged QTc, resolved Metabolic acidosis with elevated anion gap secondary to hyperlacticacidemia KEANU hemodynamically mediated (VMN) 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 Mtz) Patient presented with cardiac arrest with requirement of ACLS maneuver for 8 minutes with endotracheal intubation EKG shows atrial fibrillation with anterior T-wave inversions, prolonged QT (longest was 580 milliseconds) Completed coronary angiography which showed severe triple-vessel disease with acutely occluded circumflex currently status post PCI with 4 STANLEY and staged procedure to LAD with 3 STANLEY placed. He was attempted stage procedure of the mid-RCA which was unsuccessful Revascularized culprit vessel. Completed stage procedure to LAD on 07/05/2025. Unsuccessful staged mid-RCA on 07/12/2025 (can be completed in this center or in [place]). Echocardiogram: LVEF 20%, moderate LV enlargement, severe end stage HF, RV dysfunction, moderate MAC, mild MR and TR, moderate pulmonary HTN Initially was on heparin drip, now on therapeutic enoxaparin for A-fib. Attempted DCCV which was unsuccessful on 07/12/2025 Currently on mechanical assisted ventilation with 30% FiO2 Rest of management per primary team (on IV antibiotics) Plan: Case discussed with Dr. Mtz. Patient currently ICU status due to mechanical assisted ventilation and off vasopressors. Completed initial coronary angiography on 06/29/2025 which showed triple-vessel disease with acute circumflex occlusion status post PCI with 4 STANLEY placed, staged procedure to LAD with 3 STANLEY on 07/05/2025 and unsuccessful staged procedure of the mid-RCA on 07/12/2025. Attempted unsuccessful DCCV on 07/12/2025. Recommendations are to continue therapeutic Lovenox and transition to DOAC therapy when appropriate, continue dual-antiplatelet therapy (Plavix and ASA) and stop ASA on 08/05/2025 with continuation of DOAC and Plavix for the remaining. Initiate full GDMT for HFrEF when able to tolerate, in the meantime only SGLT2i. Optimize electrolytes, avoid QT prolonging medication. We will consider revascularization of mid-RCA once patient is awake and extubated which could also be completed at [facility] given high risk for complications and surgical backup. We will be on standby, please call in as needed basis or if there are any questions or concerns. Patient has a very poor prognosis. Goals of care discussed with : Full code status. Critical care time spent including discussion with nursing and family, excluding procedures: 30 minutes. Plan discussed with: Other Dietary Evaluation Review Comments: 1. Protein needs based on 1.2-1.5g/protein/kg IBW d/t low GFR 2. While being intubated, offer TF Vital HP @45ml/hr, in 24 hr, Pt will receive 94g protein, 1080lkcal 903ml free water, meeting pts needs at 97% protein and 100% energy. 3. Consider TPN to meet pt's needs if Pt does not tolerate TF well. 4. Reassess when pt extubated, advance to CCHO-60 PO diet after passing a OIL GAUGER evluation. Expected Outcomes/Goals: off intubation, advance to CCHO-60 Cardiac diet, gradual wt loss Date of Service: Jul 13, 2025 Billing Provider: ELMO NICHOLAS Cardiology Common Codes: 69418-XGRXINVR CARE 30-74 MIN ELMO NICHOLAS Jul 13, 2025 11:49
[2025-07-13] MEDS: METOPROLOL TARTRATE 25 MG TAB PO ONE (12:56)
[2025-07-13 17:31] LABS: INR 1.06 (0.9-1.15); Partial Thromboplastin Time 23.4 SEC (24.5-34.5); Prothrombin Time 11.2 sec (9.3-11.8)
--- NOTE | 2025-07-13 17:37 | DVHPNRES ---
Progress Note Date Seen: Jul 13, 2025 Resident Creating Document: CYNTHIA LOVE RESIDENT Medical Necessity Reason Pt with a Central, PICC or Fol: Yes The following are medically ne: Central Line, Lau Catheter Reason for lau catheter: Strict I&O Subjective Review of Systems Patient is a 74-year-old male with past medical history of hypertension, diabetes type 2, dyslipidemia, paroxysmal atrial fibrillation, CVA in 2019, presented to the ED with chief complaints of 3 days of palpitations, shortness of breath before his admission. On arrival to the ED patient was found to have atrial fibrillation with RVR and was started on a diltiazem drip to control his heart rate. Patient progressed to have cardiac arrest secondary to ventricular arrhythmias possibly ventricular tachycardia or torsades de Pointe. Patient required CPR and ACLS maneuvers for 8 minutes followed by endotracheal intubation, obtained by ROSC. Patient was initially on amiodarone drip which was later discontinued after magnesium was given for QT prolongation. Due to clinical status obtained history of present illness and past medical history from EMR and who is at bedside. Could not obtain review of systems. Cardiology consulted for elevated troponins. Past medical history: Hypertension, dyslipidemia, diabetes, paroxysmal atrial fibrillation diagnosed in 2017 (chads Vasc 7), 2019 CVA Past surgical history: Appendectomy Family history: Two brothers had heart disease requiring CABG at the age of 40 and 50 respectively, brother had lung cancer, mother had breast cancer Social history: with . Ex tobacco abuse (eight pack-year history of smoking) quit 30 years ago. Denies current tobacco, alcohol and other drug abuse Allergies: Denies Home medication: Pradaxa 150 mg p.o. daily, atorvastatin 40 mg p.o. daily, hydrochlorothiazide 12.5 mg p.o. daily, lisinopril 20 mg p.o. daily, glipizide, metformin a 1000 mg p.o. b.i.d., metoprolol (he quit taking for four months since it made him tired). 06/30/25: Patient seen and examined at bedside. Patient is currently sedated and on mechanically ventilation, with ventilator settings at tidal volume 500, FiO2 30%, peep at 5, off of pressors phenylephrine and norepinephrine. 07/01/2025: Patient seen and examined at bedside. Patient is currently sedated and mechanically ventilated. Patient today has fever and elevated WBC, blood culture ordered. Patient is on pressor Levophed 9, patient's HR 150- 160s, order was given of metoprolol IV 5 mg with partial control of the RVR, also digoxin loading dose given. Metoprolol 25 mg PO daily was also placed for tomorrow. 07/02/2025: Patient seen and examined in ICU. Hr is under controlled. Intubated. temperature 99.3 started cefepime and vancomycin. blood culture G + bacteria. 07/03/2025 :Patient seen and examined in the ICU. Patient heart rate is under control, patient is intubated, mechanically ventilated, temperature 100.6. continue cefepime, vancomycin. Repeat blood cultures were ordered.(Staph coagulase negative, could be contaminate). Planning on performing LHC on Thursday07/05/2025, have informed . 07/04/2025: Patient seen and examined in ICU. Patient is mechanically intubated, patient had a fever yesterday night but decreased. Sputum culture showed Gram-negative rods. Discontinued cefepime. Started meropenem, 12.5 metoprolol b.i.d. Repeat blood cultures are negative. Planning on performing LHC on Thursday07/05/2025, have informed . 07/05/25: Patient seen and examined in ICU. Patient is mechanically intubated, patient had Bradycardia overnight for wich metoprlol was held. LHC was done today with 3 stents placed in the LAD. Possible RHC to be done. 07/06/2025: patient seen and examined in ICU. Patient is mechanically ventilated, had a left heart catheterization done yesterday with 3 stents placed in the LAD, Planning to do next procedure in one week to RCA. 07/07/2025: patient seen and examined in ICU. Patient is mechanically ventilated, had a left heart catheterization done yesterday with 3 stents placed in the LAD, CPAP trial done today, failed, we will try again tomorrow. 07/08/2025:patient seen and examined in ICU . on ventilator. CPAP trial failed, become tachypneic. we will try again. 07/09/2025: Patient seen and examined in ICU, on ventilator, overnight patient had AFib with RVR, so CPAP trial was deferred for today. We will try again tomorrow. discontinue metoprolol, patient's last bowel movement was on the so lactulose was given. Patient's WBC is 17.1. Cardiology following. Patient is to have a heart catheterization on Thursday. 07/10/2025: Patient seen and examined in ICU. on ventilator, no overnight events were noted. No CPAP trial until procedure on Thursday. Patient's last bowel movement was on the , senna was added, patient started on digoxin. 07/11/2025: Patient seen in examined in the ICU. patient is still on ventilator, on minimal ventilator settings, tidal volume was changed to 400. Patient has not had a bowel movement since , but abdomen soft. Patient is on fentanyl 175, propofol 24. chest ultrasound showed trace pleural effusion on the right side. Patient is to have heart catheterization tomorrow. 07/12/2025: Patient seen and examined in the ICU. patient is still on ventilator, on minimal ventilator settings, tidal volume was changed to 400. Patient underwent CALVIN, and is to undergo left heart cath today. : Patient seen and examined in ICU. Patient is still on ventilator, mineral ventilator setting, underwent left heart catheterization yesterday which was unsuccessful, cardioversion which was unsuccessful, today added metoprolol 25 mg p.o. b.i.d., PICC line to be placed, 1 pack of RBC was given. Today patient had bloody secretion from the ET tube, hematuria. Consult cardio if amiodarone can be given. Objective vital signs Vital Sign Date Time Temp Pulse Resp B/P (MAP) Pulse Ox O2 Delivery O2 Flow Rate FiO2 07/13/25 15:49 99.3 97 22 97/46 99.3 07/13/25 15:21 95 30 07/13/25 14:00 Mechanical Ventilator+ Total Intake and Output 07/12/25 07/12/25 07/13/25 14:59 22:59 06:59 Intake Total 330.0 ml 446.0 ml 299.5 ml Output Total 375 ml 600 ml Balance 330.0 ml 71.0 ml -300.5 ml medications Current Medications Medications Dose Ordered Sig/Jesse Route Start Time Stop Time Status Last Admin Dose Admin Atorvastatin Calcium 40 mg HS PO 06/29/25 22:00 07/11/25 21:46 40 MG Fentanyl Citrate 250 ml @ 2.5 mls/hr Q24H IV 06/29/25 06:15 07/13/25 05:15 22.5 MLS/HR Aspirin 81 mg DAILY PO 06/30/25 10:00 07/13/25 10:08 81 MG Insulin Human Regular HS SC 06/29/25 22:00 Cancel Insulin Human Regular AC SC 06/29/25 17:00 Cancel Pantoprazole Sodium 40 mg DAILY IV 06/30/25 10:00 07/13/25 10:08 40 MG Clopidogrel Bisulfate 75 mg DAILY PO 06/30/25 10:00 07/13/25 10:08 75 MG Diagnostic Test (Pha) 1 strip IQ4HR 06/29/25 20:00 07/13/25 15:43 1 STRIP Insulin Human Regular IQ4HR SC 06/29/25 20:00 07/13/25 16:00 6 UNITS Dextrose 50 ml UD PRN IV 06/29/25 17:30 Midazolam HCl 100 ml @ 1 mls/hr Q24H IV 06/29/25 18:00 07/13/25 10:10 10 MLS/HR Enoxaparin Sodium 100 mg Q12HR SC 06/30/25 10:00 07/12/25 21:12 100 MG Enteral Nutritional Formula 1,000 ml 45ML/HR GT 06/30/25 17:15 07/01/25 07:29 1,000 ML Acetaminophen 650 mg Q4HP PRN PO 07/01/25 17:00 07/03/25 00:43 650 MG Vancomycin HCl 0 ml @ 0 mls/hr PER PHARMACY IV 07/02/25 13:15 Meropenem 50 ml @ 17 mls/hr Q8HR IV 07/04/25 22:00 07/13/25 13:44 17 MLS/HR Insulin Glargine 12 units HS SC 07/06/25 22:00 07/12/25 21:10 12 UNITS Polyethylene Glycol 17 gm DAILY PO 07/08/25 10:00 07/13/25 10:07 17 GM Propofol 100 ml @ 3.225 mls/ hr Q24H IV 07/08/25 09:45 07/11/25 08:43 16.125 MLS/HR Vancomycin HCl 100 ml @ 100 mls/hr Q12H IV 07/10/25 23:00 07/13/25 10:38 100 MLS/HR Sennosides 8.6 mg HS PO 07/10/25 22:00 07/11/25 21:46 8.6 MG Digoxin 250 mcg DAILY IV 07/12/25 10:00 07/13/25 10:37 250 MCG Lactulose 30 ml DAILY PO 07/12/25 10:00 07/13/25 10:07 30 ML Empaglifozin 10 mg DAILY PO 07/14/25 10:00 Metoprolol Tartrate 25 mg BID PO 07/13/25 22:00 Examination General: intubated, sedated HEENT: Normocephalic, atraumatic, moist mucous membranes Respiratory/pulmonary: Clear lungs bilaterally, vesicular murmurs present in almost all lung roberts, no associated crackles or wheezes. Cardiovascular: Normal heart sounds S1 and S2 with no associated murmurs Abdomen: Abdomen nondistended, there is no pain to palpation in any of the abdominal quadrants, no palpable masses. Extremities: There is no peripheral edema present at the lower extremities. Bilateral erythematous and ulcerated lesions. Skin: No rashes or pruritus, there is no sacral edema present at this time. laboratory and microbiology laboratory and microbiology Laboratory Tests 07/13/25 08:45 07/13/25 03:00 Test 07/13/25 03:00 Range/Units Serum Glucose 188 H 74-106 mg/dL Microbiology Date/Time Source Procedure Growth Status 07/11/25 14:17 Blood Blood Culture - Preliminary NO GROWTH AFTER 48 HOURS OF INCUBATION. Resulted 07/03/25 16:00 Sputum Gram Stain - Final Complete 07/03/25 16:00 Respiratory Culture - Final Pseudomonas aeruginosa Serratia marcescens Complete 07/01/25 22:35 Urine - Catheterized Urine Culture - Final Complete 06/29/25 04:30 Nose MRSA Screen - Final Complete Problem List/Assessment/Plan Problem List/Assessment/Plan Neurology Acute metabolic encephalopathy History of CVA-with residual aphasia, right-sided deficit -Sedation/neurological status: Rass score -3 - off of Levophed, phenylephrine Cardiology Cardiac arrest secondary to ventricular arrhythmia (ventricular tachycardia, torsade de pointes) NSTEMI type 1 status post PCI Newly diagnosed coronary artery disease - triple-vessel disease Prolonged QT Paroxysmal atrial fibrillation with RVR Hypertension Dyslipidemia - EKG showed atrial fibrillation with anterior T-wave inversions, prolonged QT - coronary angiography showed severe triple-vessel disease with acutely occluded circumflex status post PCI with 1 drug-eluting stent placed. -ventriculogram showed LVEF of 15% - ordered echocardiography, lvef 20%, moderate LV enlargement, severe end stage HF - avoid QT prolongation medications - Dany Vasc score 7 -currently on vasopressors Levophed, phenylephrine -severe CAD in LAD and RCA, plan to do angiography on Thursday -patient given aspirin, atorvastatin, clopidogrel - ordered 12.5 metoprolol tartrate b.i.d. - LHC done (07/05) with 3 stents placed in LAD. - Planning on new stage procedure to RCA on Thursday. Repeat echocardiogram. - digoxin 250 mcg added, - metoprolol 25 mg p.o. b.i.d. added Respiratory Acute hypoxic respiratory failure likely due to cardiac arrest Possible Aspiration Pneumonia -ventilator settings: VT 500, respiratory rate 17, FiO2 30 %, PEEP 5 -chest x-ray: Similar bilateral inferior graded opacities, likely a combination of airspace disease and pleural effusion. Genitourinary/kidney Acute kidney injury likely due to be VMN -medication: Given Lasix 20 mg once -strict I&Os -nephrotoxic drugs Endocrine Uncontrolled diabetes mellitus, HbA1c 10.6 - on insulin sliding scale Infectious Septic shock due to Aspiration pneumonia -urine culture preliminary negative -blood cultures ordered, as WBC elevated and fever present -blood culture showed positive staph coagulase negative. - repeat blood cultures negative - Respiratory culture (07/03) - Pseudomonas aeruginosa - IV vancomycin, meropenem started(07/04) Transaminitis - monitor labs Obesity BMI 33.0 Lines / Tubes / Devices Airway: Intubated via ETT on 06/29 Vascular Access: Central line 06/29 Drips: Fentanyl, midazolam, norepinephrine, phenylephrine, Versed Prophylaxis / Supportive Care DVT Prophylaxis: Lovenox. GI Prophylaxis: Protonix. Goals of care discussed with the patient family for more than 29 minutes: Full code state Patient care updated to (Myrna), addressed all concerns. Critical care time spent excluding procedures 81 minutes Plan discussed with Dr. Waters and RN Plan discussed with: Spouse My Orders My Orders Orders - CYNTHIA LOVE RESIDENT Procedure Category Date Status Time Respiratory Culture JONNY 07/13/25 Logged W/ Gs 08:13 Dietary Evaluation Review Comments: 1. Protein needs based on 1.2-1.5g/protein/kg IBW d/t low GFR 2. While being intubated, offer TF Vital HP @45ml/hr, in 24 hr, Pt will receive 94g protein, 1080lkcal 903ml free water, meeting pts needs at 97% protein and 100% energy. 3. Consider TPN to meet pt's needs if Pt does not tolerate TF well. 4. Reassess when pt extubated, advance to CCHO-60 PO diet after passing a NET APPLICATION ARCHITECT evluation. Expected Outcomes/Goals: off intubation, advance to CCHO-60 Cardiac diet, gradual wt loss Date of Service: Jul 13, 2025 Billing Provider: YOBANY AGUIRRE MD Common Visit Codes: 45115-ZANTWAML CARE 30-74 MIN, 98693-[id number] CARE-EACH +30MIN CYNTHIA LOVE Jul 13, 2025 17:37 YOBANY AGUIRRE MD Jul 16, 2025 16:35
[2025-07-13] MEDS: METOPROLOL TARTRATE 25 MG TAB PO SCH (20:14)
[2025-07-14] VITALS (112 sets, daily range): BP systolic 85–142; BP diastolic 31–66; PULSE 73–127; RESP 14–35; TEMP 92.5–99.9; O2SAT 94–100
[2025-07-14 03:55] LABS: Hematocrit 26.8 % (41.0-53.0); Hemoglobin 9.2 g/dL (13.5-17.5); Mean Corpuscular Hemoglobin 28.4 pg (28.0-32.0); Mean Corpuscular Volume 83.3 fL (80.0-100.0); Nucleated Red Blood Cells % 0.0 %
[2025-07-14 04:11] LABS: Alanine Aminotransferase 13 U/L (7-40); Alkaline Phosphatase 104 U/L (46-116); Anion Gap 6 (5-15); BUN/Creatinine Ratio 35.3 (10.0-20.0); Carbon Dioxide 31 mmol/L (20-31); Magnesium 2.4 mg/dL (1.6-2.6); Potassium 4.7 mmol/L (3.5-5.1); Sodium 144 mmol/L (136-145); Total Protein 6.1 g/dL (5.7-8.2)
[2025-07-14 04:12] LABS: Bilirubin, Total 0.9 mg/dL (0.2-1.0)
[2025-07-14 04:14] LABS: Albumin 2.7 g/dL (3.2-4.8); Blood Urea Nitrogen 24 mg/dL (9-23); Calcium 7.9 mg/dL (8.7-10.4); Chloride 107 mmol/L (98-107); Glucose 173 mg/dL (74-106)
--- NOTE | 2025-07-14 06:42 | DVH ---
CHEST RADIOGRAPH Indication: on vent Technique: Single frontal view of the chest was obtained Comparison: XY CHEST XRAY 1 VIEW on DOS: 07/13/25. FINDINGS: Lines and Tubes: There is a right PICC with its tip terminating in the right atrium. The enteric tube courses below the left hemidiaphragm and the tip extends outside the field of view. The endotracheal tube terminates 3.8 cm above the kolby. Lungs: Bibasilar airspace disease similar to prior study. Pleura: Similar bilateral pleural effusions. No pneumothorax. Cardiomediastinal contours: Cardiomegaly. Bones: No acute osseous abnormality. IMPRESSION: 1. Support tubes in appropriate position. 2. Bibasilar airspace disease and bilateral pleural effusions similar to prior study.
[2025-07-14 07:06] LABS: Base Excess 0.1 mmol/L (-2.0-3.0)
[2025-07-14] MEDS: METOPROLOL TARTRATE 25 MG TAB PO SCH (10:43)
[2025-07-14] MEDS: EMPAGLIFLOZIN 10 MG TAB PO SCH (10:44)
--- NOTE | 2025-07-14 11:24 | DVHPNRES ---
Progress Note Date Seen: Jul 14, 2025 Resident Creating Document: CYNTHIA LOVE RESIDENT Medical Necessity Reason Pt with a Central, PICC or Fol: Yes The following are medically ne: Central Line, Lau Catheter Reason for lau catheter: Strict I&O Subjective Review of Systems Patient is a 74-year-old male with past medical history of hypertension, diabetes type 2, dyslipidemia, paroxysmal atrial fibrillation, CVA in 2019, presented to the ED with chief complaints of 3 days of palpitations, shortness of breath before his admission. On arrival to the ED patient was found to have atrial fibrillation with RVR and was started on a diltiazem drip to control his heart rate. Patient progressed to have cardiac arrest secondary to ventricular arrhythmias possibly ventricular tachycardia or torsades de Pointe. Patient required CPR and ACLS maneuvers for 8 minutes followed by endotracheal intubation, obtained by ROSC. Patient was initially on amiodarone drip which was later discontinued after magnesium was given for QT prolongation. Due to clinical status obtained history of present illness and past medical history from EMR and who is at bedside. Could not obtain review of systems. Cardiology consulted for elevated troponins. Past medical history: Hypertension, dyslipidemia, diabetes, paroxysmal atrial fibrillation diagnosed in 2017 (chads Vasc 7), 2019 CVA Past surgical history: Appendectomy Family history: Two brothers had heart disease requiring CABG at the age of 40 and 50 respectively, brother had lung cancer, mother had breast cancer Social history: with . Ex tobacco abuse (eight pack-year history of smoking) quit 30 years ago. Denies current tobacco, alcohol and other drug abuse Allergies: Denies Home medication: Pradaxa 150 mg p.o. daily, atorvastatin 40 mg p.o. daily, hydrochlorothiazide 12.5 mg p.o. daily, lisinopril 20 mg p.o. daily, glipizide, metformin a 1000 mg p.o. b.i.d., metoprolol (he quit taking for four months since it made him tired). 06/30/25: Patient seen and examined at bedside. Patient is currently sedated and on mechanically ventilation, with ventilator settings at tidal volume 500, FiO2 30%, peep at 5, off of pressors phenylephrine and norepinephrine. 07/01/2025: Patient seen and examined at bedside. Patient is currently sedated and mechanically ventilated. Patient today has fever and elevated WBC, blood culture ordered. Patient is on pressor Levophed 9, patient's HR 150- 160s, order was given of metoprolol IV 5 mg with partial control of the RVR, also digoxin loading dose given. Metoprolol 25 mg PO daily was also placed for tomorrow. 07/02/2025: Patient seen and examined in ICU. Hr is under controlled. Intubated. temperature 99.3 started cefepime and vancomycin. blood culture G + bacteria. 07/03/2025 :Patient seen and examined in the ICU. Patient heart rate is under control, patient is intubated, mechanically ventilated, temperature 100.6. continue cefepime, vancomycin. Repeat blood cultures were ordered.(Staph coagulase negative, could be contaminate). Planning on performing LHC on Thursday07/05/2025, have informed . 07/04/2025: Patient seen and examined in ICU. Patient is mechanically intubated, patient had a fever yesterday night but decreased. Sputum culture showed Gram-negative rods. Discontinued cefepime. Started meropenem, 12.5 metoprolol b.i.d. Repeat blood cultures are negative. Planning on performing LHC on Thursday07/05/2025, have informed . 07/05/25: Patient seen and examined in ICU. Patient is mechanically intubated, patient had Bradycardia overnight for wich metoprlol was held. LHC was done today with 3 stents placed in the LAD. Possible RHC to be done. 07/06/2025: patient seen and examined in ICU. Patient is mechanically ventilated, had a left heart catheterization done yesterday with 3 stents placed in the LAD, Planning to do next procedure in one week to RCA. 07/07/2025: patient seen and examined in ICU. Patient is mechanically ventilated, had a left heart catheterization done yesterday with 3 stents placed in the LAD, CPAP trial done today, failed, we will try again tomorrow. 07/08/2025:patient seen and examined in ICU . on ventilator. CPAP trial failed, become tachypneic. we will try again. 07/09/2025: Patient seen and examined in ICU, on ventilator, overnight patient had AFib with RVR, so CPAP trial was deferred for today. We will try again tomorrow. discontinue metoprolol, patient's last bowel movement was on the so lactulose was given. Patient's WBC is 17.1. Cardiology following. Patient is to have a heart catheterization on Thursday. 07/10/2025: Patient seen and examined in ICU. on ventilator, no overnight events were noted. No CPAP trial until procedure on Thursday. Patient's last bowel movement was on the , senna was added, patient started on digoxin. 07/11/2025: Patient seen in examined in the ICU. patient is still on ventilator, on minimal ventilator settings, tidal volume was changed to 400. Patient has not had a bowel movement since , but abdomen soft. Patient is on fentanyl 175, propofol 24. chest ultrasound showed trace pleural effusion on the right side. Patient is to have heart catheterization tomorrow. 07/12/2025: Patient seen and examined in the ICU. patient is still on ventilator, on minimal ventilator settings, tidal volume was changed to 400. Patient underwent CALVIN, and is to undergo left heart cath today. : Patient seen and examined in ICU. Patient is still on ventilator, mineral ventilator setting, underwent left heart catheterization yesterday which was unsuccessful, cardioversion which was unsuccessful, today added metoprolol 25 mg p.o. b.i.d., PICC line to be placed, 1 pack of RBC was given. Today patient had bloody secretion from the ET tube, hematuria. Consult cardio if amiodarone can be given. 07/14/2025: Patient seen and examined in the ICU. Patient on ventilator, minimal ventilator setting, unsuccessful cardioversion, left heart catheterization, yesterday night patient's blood pressure dropped and metoprolol was changed to 12.5 mg. Hematuria has resolved, no bloody secretions from ET tube. Amnio is not to be given. Objective vital signs Vital Sign Date Time Temp Pulse Resp B/P (MAP) Pulse Ox O2 Delivery O2 Flow Rate FiO2 07/14/25 10:44 87 07/14/25 10:43 105/54 07/14/25 10:29 20 98 30 07/14/25 07:00 98.2 208.8 07/14/25 06:00 Mechanical Ventilator+ Total Intake and Output 07/13/25 07/13/25 07/14/25 14:59 22:59 06:59 Intake Total 380 ml 830 ml 798 ml Output Total 400 ml 500 ml Balance 380 ml 430 ml 298 ml medications Current Medications Medications Dose Ordered Sig/Jesse Route Start Time Stop Time Status Last Admin Dose Admin Atorvastatin Calcium 40 mg HS PO 06/29/25 22:00 07/13/25 20:14 40 MG Fentanyl Citrate 250 ml @ 2.5 mls/hr Q24H IV 06/29/25 06:15 07/14/25 10:40 2.5 MLS/HR Aspirin 81 mg DAILY PO 06/30/25 10:00 07/14/25 10:41 81 MG Insulin Human Regular HS SC 06/29/25 22:00 Cancel Insulin Human Regular AC SC 06/29/25 17:00 Cancel Pantoprazole Sodium 40 mg DAILY IV 06/30/25 10:00 07/14/25 10:40 40 MG Clopidogrel Bisulfate 75 mg DAILY PO 06/30/25 10:00 07/14/25 10:42 75 MG Diagnostic Test (Pha) 1 strip IQ4HR 06/29/25 20:00 07/14/25 07:58 1 STRIP Insulin Human Regular IQ4HR SC 06/29/25 20:00 07/14/25 08:05 3 UNITS Dextrose 50 ml UD PRN IV 06/29/25 17:30 Midazolam HCl 100 ml @ 1 mls/hr Q24H IV 06/29/25 18:00 07/14/25 05:00 8 MLS/HR Enoxaparin Sodium 100 mg Q12HR SC 06/30/25 10:00 07/14/25 10:41 100 MG Enteral Nutritional Formula 1,000 ml 45ML/HR GT 06/30/25 17:15 07/14/25 04:30 1,000 ML Acetaminophen 650 mg Q4HP PRN PO 07/01/25 17:00 07/03/25 00:43 650 MG Vancomycin HCl 0 ml @ 0 mls/hr PER PHARMACY IV 07/02/25 13:15 Meropenem 50 ml @ 17 mls/hr Q8HR IV 07/04/25 22:00 07/14/25 04:24 17 MLS/HR Insulin Glargine 12 units HS SC 07/06/25 22:00 07/13/25 20:10 12 UNITS Polyethylene Glycol 17 gm DAILY PO 07/08/25 10:00 07/14/25 10:40 17 GM Propofol 100 ml @ 3.225 mls/ hr Q24H IV 07/08/25 09:45 07/11/25 08:43 16.125 MLS/HR Vancomycin HCl 100 ml @ 100 mls/hr Q12H IV 07/10/25 23:00 07/14/25 10:46 100 MLS/HR Sennosides 8.6 mg HS PO 07/10/25 22:00 07/13/25 20:13 8.6 MG Digoxin 250 mcg DAILY IV 07/12/25 10:00 07/14/25 10:44 250 MCG Lactulose 30 ml DAILY PO 07/12/25 10:00 07/14/25 10:40 30 ML Empaglifozin 10 mg DAILY PO 07/14/25 10:00 07/14/25 10:44 10 MG Metoprolol Tartrate 12.5 mg BID PO 07/14/25 10:00 07/14/25 10:43 12.5 MG Examination General: intubated, sedated HEENT: Normocephalic, atraumatic, moist mucous membranes Respiratory/pulmonary: Clear lungs bilaterally, vesicular murmurs present in almost all lung roberts, no associated crackles or wheezes. Cardiovascular: Normal heart sounds S1 and S2 with no associated murmurs Abdomen: Abdomen nondistended, there is no pain to palpation in any of the abdominal quadrants, no palpable masses. Extremities: There is no peripheral edema present at the lower extremities. Bilateral erythematous and ulcerated lesions. Skin: No rashes or pruritus, there is no sacral edema present at this time. laboratory and microbiology laboratory and microbiology Laboratory Tests 07/14/25 02:50 Test 07/14/25 02:50 Range/Units Serum Glucose 173 H 74-106 mg/dL Microbiology Date/Time Source Procedure Growth Status 07/11/25 14:17 Blood Blood Culture - Preliminary NO GROWTH AFTER 48 HOURS OF INCUBATION. Resulted 07/03/25 16:00 Sputum Gram Stain - Final Complete 07/03/25 16:00 Respiratory Culture - Final Pseudomonas aeruginosa Serratia marcescens Complete 07/01/25 22:35 Urine - Catheterized Urine Culture - Final Complete 06/29/25 04:30 Nose MRSA Screen - Final Complete Problem List/Assessment/Plan Problem List/Assessment/Plan Neurology Acute metabolic encephalopathy History of CVA-with residual aphasia, right-sided deficit -Sedation/neurological status: Rass score -3 - off of Levophed, phenylephrine Cardiology Cardiac arrest secondary to ventricular arrhythmia (ventricular tachycardia, torsade de pointes) NSTEMI type 1 status post PCI Newly diagnosed coronary artery disease - triple-vessel disease Prolonged QT Paroxysmal atrial fibrillation with RVR Hypertension Dyslipidemia - EKG showed atrial fibrillation with anterior T-wave inversions, prolonged QT - coronary angiography showed severe triple-vessel disease with acutely occluded circumflex status post PCI with 1 drug-eluting stent placed. -ventriculogram showed LVEF of 15% - ordered echocardiography, lvef 20%, moderate LV enlargement, severe end stage HF - avoid QT prolongation medications - Dany Vasc score 7 -currently on vasopressors Levophed, phenylephrine -severe CAD in LAD and RCA, plan to do angiography on Thursday -patient given aspirin, atorvastatin, clopidogrel - ordered 12.5 metoprolol tartrate b.i.d. - LHC done (07/05) with 3 stents placed in LAD. - Planning on new stage procedure to RCA on Thursday. Repeat echocardiogram. - digoxin 250 mcg added, - metoprolol 25 mg p.o. b.i.d. added Respiratory Acute hypoxic respiratory failure likely due to cardiac arrest Possible Aspiration Pneumonia -ventilator settings: VT 500, respiratory rate 17, FiO2 30 %, PEEP 5 -chest x-ray: Similar bilateral inferior graded opacities, likely a combination of airspace disease and pleural effusion. Genitourinary/kidney Acute kidney injury likely due to be VMN -medication: Given Lasix 20 mg once -strict I&Os -nephrotoxic drugs Endocrine Uncontrolled diabetes mellitus, HbA1c 10.6 - on insulin sliding scale Infectious Septic shock due to Aspiration pneumonia -urine culture preliminary negative -blood cultures ordered, as WBC elevated and fever present -blood culture showed positive staph coagulase negative. - repeat blood cultures negative - Respiratory culture (07/03) - Pseudomonas aeruginosa - IV vancomycin, meropenem started(07/04) - repeat blood cultures (07/12) were negative Transaminitis - monitor labs Obesity BMI 33.0 Lines / Tubes / Devices Airway: Intubated via ETT on 06/29 Vascular Access: Central line 06/29 Drips: Fentanyl, midazolam, norepinephrine, phenylephrine, Versed Prophylaxis / Supportive Care DVT Prophylaxis: Lovenox. GI Prophylaxis: Protonix. Goals of care discussed with the patient family for more than 29 minutes: Full code state Patient care updated to (Myrna), addressed all concerns. Critical care time spent excluding procedures 85 minutes Plan discussed with Dr. Mason and RN Plan discussed with: Spouse My Orders My Orders Orders - CYNTHIA LOVE Procedure Category Date Status Time Chest Xray 1 View XY 07/14/25 Resulted 04:00 Abg W/ Co-Ox RT 07/14/25 Logged 05:24 Dietary Evaluation Review Comments: 1. Protein needs based on 1.2-1.5g/protein/kg IBW d/t low GFR 2. While being intubated, offer TF Vital HP @45ml/hr, in 24 hr, Pt will receive 94g protein, 1080lkcal 903ml free water, meeting pts needs at 97% protein and 100% energy. 3. Consider TPN to meet pt's needs if Pt does not tolerate TF well. 4. Reassess when pt extubated, advance to CCHO-60 PO diet after passing a [employer] evluation. Expected Outcomes/Goals: off intubation, advance to CCHO-60 Cardiac diet, gradual wt loss CYNTHIA LOVE RESIDENT Jul 14, 2025 11:23
--- NOTE | 2025-07-14 16:06 | DVH ---
Date: 07/14/2025 02:17 PM Examination: XY KUB ABDOMEN SINGLE VIEW History: constipation Comparison: None TECHNIQUE: Frontal views of the abdomen was obtained. FINDINGS: Bowel gas pattern is unremarkable. Enteric tube in the stomach. The lung bases are unremarkable. No acute osseous abnormality identified. IMPRESSION: 1. Enteric tube below the left diaphragm in the stomach.
[2025-07-14] MEDS: LIDOCAINE 1% (LOCAL ANESTH.) PF 5ml SDV ID ONE (16:15)
--- NOTE | 2025-07-14 16:48 | DVH ---
EXAM: XY CHEST PORTABLE HISTORY: S/P PICC LINE PLACEMENT. COMPARISON: XY CHEST XRAY 1 VIEW on DOS: 07/14/25, XY CHEST XRAY 1 VIEW on DOS: 07/13/25, XY CHEST PORTABLE on DOS: 07/12/25, XY CHEST XRAY 1 VIEW on DOS: 07/12/25, XY CHEST XRAY 1 VIEW on DOS: 07/11/25 TECHNIQUE: Portable AP view of the chest was performed. FINDINGS: There is an endotracheal tube with its tip 3.6 cm above the kolby. OG tube tip is distal to the GE junction. There is a right subclavian central line. There is a new right upper extremity PICC line with its tip in the lower SVC. There are infiltrates and effusions in the lung bases, greater on the right. The hemidiaphragms are obscured. No pneumothorax. The heart is enlarged. The thoracic aorta is calcific. IMPRESSION: 1. Mechanical ventilation with tubes and lines as above. 2. New right upper extremity PICC line in good position. 3. Bilateral lung base infiltrates and effusions, [id number].
[2025-07-14] MEDS: SODIUM CHLOR 0.9% PF (SALINE LOCK) 10ML VIAL/SYR IV SCH (21:04)
--- NOTE | 2025-07-14 23:30 | DVHPN2 ---
Subjective DOS: 07/14/2025 Patient seen and examined at bedside. Sedated, intubated on mechanical ventilator. Overnight events reviewed. Changes from previous H/P or p: No Changes Objective Vitals Vital Signs Date Time Temp Pulse Resp B/P (MAP) Pulse Ox O2 Delivery O2 Flow Rate FiO2 07/14/25 22:45 99.3 84 18 104/45 (64) 99 210.7 07/14/25 22:00 30 07/14/25 22:00 Mechanical Ventilator+ Intake/Output Intake and Output 07/14/25 07:00 Intake Total 2006 ml Output Total 900 ml Balance 1106 ml Intake Oral 20 ml IV Total 1126 ml Tube Feeding 560 ml Blood Product 300 ml Output Urine Total 900 ml Stool Total 0 ml Exam Gen.: Patient lying in bed in medical ICU. Sedated, intubated on mechanical ventilator. Head: Normocephalic, atraumatic. Eyes: PERRLA. Ears: Normal external anatomy. Throat: Endotracheal tube and orogastric tube in place. Neck: Supple, trachea midline. Chest: Transmitted breath sounds bilaterally. Decreased air entry bilaterally. No wheezing. Bibasilar crackles. Cardiovascular: Positive S1, positive S2. Regular rate and rhythm. Abdomen: Positive bowel sounds in all 4 quadrants. Soft, nontender, nondistended. : Daley in place. Normal external genitalia. Rectal: Deferred. Skin: Warm, dry. Intact. Extremities: 2+ radial pulses bilaterally. No lower extremity edema. Neuro: Sedated Medications Current Medications Medications Dose Ordered Sig/Jesse Route Start Time Stop Time Status Last Admin Dose Admin Atorvastatin Calcium 40 mg HS PO 06/29/25 22:00 07/14/25 21:04 40 MG Fentanyl Citrate 250 ml @ 2.5 mls/hr Q24H IV 06/29/25 06:15 07/14/25 21:07 22.5 MLS/HR Aspirin 81 mg DAILY PO 06/30/25 10:00 07/14/25 10:41 81 MG Insulin Human Regular HS SC 06/29/25 22:00 Cancel Insulin Human Regular AC SC 06/29/25 17:00 Cancel Pantoprazole Sodium 40 mg DAILY IV 06/30/25 10:00 07/14/25 10:40 40 MG Clopidogrel Bisulfate 75 mg DAILY PO 06/30/25 10:00 07/14/25 10:42 75 MG Diagnostic Test (Pha) 1 strip IQ4HR 06/29/25 20:00 07/14/25 19:56 1 STRIP Insulin Human Regular IQ4HR SC 06/29/25 20:00 07/14/25 16:24 3 UNITS Dextrose 50 ml UD PRN IV 06/29/25 17:30 Midazolam HCl 100 ml @ 1 mls/hr Q24H IV 06/29/25 18:00 07/14/25 21:06 8 MLS/HR Enoxaparin Sodium 100 mg Q12HR SC 06/30/25 10:00 07/14/25 21:05 100 MG Enteral Nutritional Formula 1,000 ml 45ML/HR GT 06/30/25 17:15 07/14/25 21:08 1,000 ML Acetaminophen 650 mg Q4HP PRN PO 07/01/25 17:00 07/03/25 00:43 650 MG Vancomycin HCl 0 ml @ 0 mls/hr PER PHARMACY IV 07/02/25 13:15 Meropenem 50 ml @ 17 mls/hr Q8HR IV 07/04/25 22:00 07/14/25 21:04 17 MLS/HR Insulin Glargine 12 units HS SC 07/06/25 22:00 07/14/25 21:07 12 UNITS Polyethylene Glycol 17 gm DAILY PO 07/08/25 10:00 07/14/25 10:40 17 GM Propofol 100 ml @ 3.225 mls/ hr Q24H IV 07/08/25 09:45 07/11/25 08:43 16.125 MLS/HR Vancomycin HCl 100 ml @ 100 mls/hr Q12H IV 07/10/25 23:00 07/14/25 10:46 100 MLS/HR Sennosides 8.6 mg HS PO 07/10/25 22:00 07/14/25 21:04 8.6 MG Digoxin 250 mcg DAILY IV 07/12/25 10:00 07/14/25 10:44 250 MCG Lactulose 30 ml DAILY PO 07/12/25 10:00 07/14/25 10:40 30 ML Empaglifozin 10 mg DAILY PO 07/14/25 10:00 07/14/25 10:44 10 MG Metoprolol Tartrate 12.5 mg BID PO 07/14/25 10:00 07/14/25 21:04 12.5 MG Sodium Chloride 10 ml QSHIFT@10,22 IV 07/14/25 22:00 07/14/25 21:04 10 ML Laboratory Results Laboratory Tests 07/14/25 02:50 Chemistry Test 07/14/25 02:50 Albumin 2.7 g/dL (3.2-4.8) L Calcium Level 7.9 mg/dL (8.7-10.4) L Magnesium Level 2.4 mg/dL (1.6-2.6) Total Protein 6.1 g/dL (5.7-8.2) LFT Test 07/14/25 02:50 Alanine Aminotransferase (ALT) 13 U/L (7-40) Alkaline Phosphatase 104 U/L (46-116) Aspartate Amino Transferase (AST) 25 U/L (13-40) Total Bilirubin 0.9 mg/dL (0.2-1.0) Urinalysis Test 06/28/25 17:12 Urine Color Colorless (Yellow) Urine Clarity Clear (Clear) Urine pH 5.0 (5.0-9.0) Urine Specific [place] 1.005 (1.001-1.035) Urine Protein Negative (Negative) Urine Ketones Negative (Negative) Urine Blood Negative /uL (Negative) Urine Nitrite Negative (Negative) Urine Bilirubin Negative (Negative) Urine Urobilinogen Normal mg/dL (Negative) Urine Leukocyte Esterase Negative /uL (Negative) Urine RBC 1 /hpf (0 - 3) Urine Microscopic WBC < 1 /HPF (0-3) Urine Squamous Epithelial Cells None seen /hpf (<5) Urine Bacteria None seen /hpf (None Seen) Urine Glucose 2+ mg/dL (Normal) H Blood Gas Results Test 07/14/25 06:38 Arterial Blood pH 7.361 (7.350-7.450) FiO2 % 30.0 Microbiology Microbiology Date/Time Source Procedure Growth Status 07/11/25 14:17 Blood Blood Culture - Preliminary NO GROWTH AFTER 72 HOURS OF INCUBATION. Resulted 07/03/25 16:00 Sputum Gram Stain - Final Complete 07/03/25 16:00 Respiratory Culture - Final Pseudomonas aeruginosa Serratia marcescens Complete 07/01/25 22:35 Urine - Catheterized Urine Culture - Final Complete 06/29/25 04:30 Nose MRSA Screen - Final Complete Assessment/Plan Assessment/Plan Impression: Acute hypoxic respiratory failure On mechanical ventilator Acute metabolic encephalopathy Septic shock Aspiration pneumonia Non-ST elevation VA Paroxysmal atrial fibrillation w/ RVR History of CVA Acute kidney injury Obesity Events: Patient seen and examined in ICU. Patient is mechanically ventilated. On AC mode; RR 18, VT 400, PEEP 5, FiO2 30% Taper FIO2 as tolerated ABG reviewed, compensated. Chest x-ray reviewed. Sedated on Versed Fentanyl drip for analgesia Taper Fentanyl, start Propofol KUB reveals no small bowel obstruction. Off tube feeds due to high residuals. GI recs appreciated. AFib with RVR Pt underwent unsuccessful cardioversion, left heart catheterization Blood pressure dropped last night and metoprolol was changed to 12.5 mg. Hematuria has resolved, no bloody secretions from ET tube. Amiodarone is not to be given. Cardiology recommendations appreciated Continue bronchodilators/Mucomyst Continue antibiotics. Sputum cx grew Pseudomonas aeruginosa and Serratia marcescens Monitor WBC No fevers. No BMs since 06/28/25 - on lactulose. Patient underwent left heart catheterization 07/06/25 with 3 stents placed in the LAD. Cardiology recs appreciated. Labs and imaging reviewed. Plan: s/p intubation on mechanical ventilator. On AC mode; RR 18, VT 400, PEEP 5, FiO2 30% Titrate FIO2 to keep O2 saturation above 90%. VAP bundle. Daily ABG and CXR while intubated Continue bronchodilators/Mucomyst Continue antibiotics. Follow up cultures. Pressors as necessary for hemodynamic support Titrate to keep mean arterial pressure greater than 65 mmHg. Accu-Cheks, ISS Monitor renal function Monitor electrolytes. Supplement as necessary. Monitor ins and outs. Maintain euvolemia. GI prophylaxis. DVT prophylaxis. Recommend diet and lifestyle modifications for weight reduction Obesity complicates all care Prognosis: Poor given patient's multiple co-morbidities. Condition: Critical Rest of plan per hospitalist and other consultants. A total of 35 minutes of critical care time was spent reviewing the patient record, examining the patient, making a diagnostic and therapeutic plan, discussing this plan with the medical personnel, following up on diagnostic studies and following the patient for clinical stability excluding any and all procedures. At least 50% of this time was spent in direct, [id number] contact. Thank you, , for allowing me to participate in this patient's care. Further recommendations will depend on the patient's clinical course. Please do not hesitate to contact me if you have any questions or concerns. This medical document was created using an electronic medical record system with [employer] computerized dictation system. Although these documentations are being carefully reviewed, there may still be some phonetic and typographical changes. The errors are purely typographical, due to imperfection on the software program, and do not reflect any compromise in the patient's medical care. Plan discussed with: Other (NAM Chaparro) My Orders Orders - ENRIQUE ODONNELL MD Procedure Category Date Status Time Lipid Panel LAB 07/15/25 Verified 04:00 Visit Coding Pulmonary Billing Provider: ENRIQUE ODONNELL MD Date of Service if different f: Jul 14, 2025 Common Visit Codes: 86866-[id number] INP/OBS CARE(HIGH), 41492-GODMMOLY CARE 30-74 MIN ENRIQUE ODONNELL MD Jul 14, 2025 23:30
[2025-07-15] VITALS (114 sets, daily range): BP systolic 74–161; BP diastolic 35–106; PULSE 58–157; RESP 15–35; TEMP 92.1–100.2; O2SAT 68–100
[2025-07-15 03:27] LABS: Hematocrit 27.0 % (41.0-53.0); Hemoglobin 9.1 g/dL (13.5-17.5); Mean Corpuscular Hemoglobin 28.0 pg (28.0-32.0); Mean Corpuscular Volume 83.4 fL (80.0-100.0); Nucleated Red Blood Cells % 0.0 %
[2025-07-15 03:43] LABS: Alanine Aminotransferase 14 U/L (7-40); Alkaline Phosphatase 107 U/L (46-116); Anion Gap 5 (5-15); BUN/Creatinine Ratio 36.1 (10.0-20.0); Magnesium 2.2 mg/dL (1.6-2.6); Potassium 5.0 mmol/L (3.5-5.1); Triglycerides 112 mg/dL (< 150)
[2025-07-15 03:44] LABS: Bilirubin, Total 1.0 mg/dL (0.2-1.0); Cholesterol 98 mg/dL (< 200)
[2025-07-15 03:45] LABS: Albumin 2.3 g/dL (3.2-4.8); Blood Urea Nitrogen 26 mg/dL (9-23); Calcium 7.5 mg/dL (8.7-10.4); Carbon Dioxide 32 mmol/L (20-31); Chloride 108 mmol/L (98-107); Glucose 138 mg/dL (74-106); HDL Cholesterol 25 mg/dL (40-59); Sodium 145 mmol/L (136-145); Total Protein 5.6 g/dL (5.7-8.2)
--- NOTE | 2025-07-15 06:06 | DVH ---
CHEST RADIOGRAPH Indication: on vent Technique: Single frontal view of the chest was obtained COMPARISON: XY CHEST PORTABLE on DOS: 07/14/25, XY CHEST XRAY 1 VIEW on DOS: 07/14/25, XY CHEST XRAY 1 VIEW on DOS: 07/13/25, XY CHEST PORTABLE on DOS: 07/12/25, XY CHEST XRAY 1 VIEW on DOS: 07/12/25 FINDINGS: Lines and Tubes: Slight interval advancement of the endotracheal tube such that the tip now projects approximately 1.8 cm above the level of the kolby. Remaining lines and tubes unchanged. Lungs: Stable appearing bilateral pleural effusions without evidence of focal consolidation. No pneumothorax. Cardiomediastinal contours: Cardiomegaly. Bones: Unremarkable IMPRESSION: 1. Slight interval advancement of the endotracheal tube such that the tip now projects approximately 1.8 cm above the level of the kolby. Remaining Lines and tubes unchanged. 2. Cardiomegaly and stable bilateral pleural effusions.
[2025-07-15 08:12] LABS: Base Excess 4.4 mmol/L (-2.0-3.0)
--- NOTE | 2025-07-15 12:54 | DVHPNRES ---
Progress Note Date Seen: Jul 15, 2025 Resident Creating Document: ANIBAL NAGEL RESIDENT Medical Necessity Reason Pt with a Central, PICC or Fol: Yes The following are medically ne: Central Line, Lau Catheter Reason for lau catheter: Strict I&O Subjective Review of Systems Patient is a 74-year-old male with past medical history of hypertension, diabetes type 2, dyslipidemia, paroxysmal atrial fibrillation, CVA in 2019, presented to the ED with chief complaints of 3 days of palpitations, shortness of breath before his admission. On arrival to the ED patient was found to have atrial fibrillation with RVR and was started on a diltiazem drip to control his heart rate. Patient progressed to have cardiac arrest secondary to ventricular arrhythmias possibly ventricular tachycardia or torsades de Pointe. Patient required CPR and ACLS maneuvers for 8 minutes followed by endotracheal intubation, obtained by ROSC. Patient was initially on amiodarone drip which was later discontinued after magnesium was given for QT prolongation. Due to clinical status obtained history of present illness and past medical history from EMR and who is at bedside. Could not obtain review of systems. Cardiology consulted for elevated troponins. Past medical history: Hypertension, dyslipidemia, diabetes, paroxysmal atrial fibrillation diagnosed in 2017 (chads Vasc 7), 2019 CVA Past surgical history: Appendectomy Family history: Two brothers had heart disease requiring CABG at the age of 40 and 50 respectively, brother had lung cancer, mother had breast cancer Social history: with . Ex tobacco abuse (eight pack-year history of smoking) quit 30 years ago. Denies current tobacco, alcohol and other drug abuse Allergies: Denies Home medication: Pradaxa 150 mg p.o. daily, atorvastatin 40 mg p.o. daily, hydrochlorothiazide 12.5 mg p.o. daily, lisinopril 20 mg p.o. daily, glipizide, metformin a 1000 mg p.o. b.i.d., metoprolol (he quit taking for four months since it made him tired). 06/30/25: Patient seen and examined at bedside. Patient is currently sedated and on mechanically ventilation, with ventilator settings at tidal volume 500, FiO2 30%, peep at 5, off of pressors phenylephrine and norepinephrine. 07/01/2025: Patient seen and examined at bedside. Patient is currently sedated and mechanically ventilated. Patient today has fever and elevated WBC, blood culture ordered. Patient is on pressor Levophed 9, patient's HR 150- 160s, order was given of metoprolol IV 5 mg with partial control of the RVR, also digoxin loading dose given. Metoprolol 25 mg PO daily was also placed for tomorrow. 07/02/2025: Patient seen and examined in ICU. Hr is under controlled. Intubated. temperature 99.3 started cefepime and vancomycin. blood culture G + bacteria. 07/03/2025 :Patient seen and examined in the ICU. Patient heart rate is under control, patient is intubated, mechanically ventilated, temperature 100.6. continue cefepime, vancomycin. Repeat blood cultures were ordered.(Staph coagulase negative, could be contaminate). Planning on performing LHC on Thursday07/05/2025, have informed . 07/04/2025: Patient seen and examined in ICU. Patient is mechanically intubated, patient had a fever yesterday night but decreased. Sputum culture showed Gram-negative rods. Discontinued cefepime. Started meropenem, 12.5 metoprolol b.i.d. Repeat blood cultures are negative. Planning on performing LHC on Thursday07/05/2025, have informed . 07/05/25: Patient seen and examined in ICU. Patient is mechanically intubated, patient had Bradycardia overnight for wich metoprlol was held. LHC was done today with 3 stents placed in the LAD. Possible RHC to be done. 07/06/2025: patient seen and examined in ICU. Patient is mechanically ventilated, had a left heart catheterization done yesterday with 3 stents placed in the LAD, Planning to do next procedure in one week to RCA. 07/07/2025: patient seen and examined in ICU. Patient is mechanically ventilated, had a left heart catheterization done yesterday with 3 stents placed in the LAD, CPAP trial done today, failed, we will try again tomorrow. 07/08/2025:patient seen and examined in ICU . on ventilator. CPAP trial failed, become tachypneic. we will try again. 07/09/2025: Patient seen and examined in ICU, on ventilator, overnight patient had AFib with RVR, so CPAP trial was deferred for today. We will try again tomorrow. discontinue metoprolol, patient's last bowel movement was on the so lactulose was given. Patient's WBC is 17.1. Cardiology following. Patient is to have a heart catheterization on Thursday. 07/10/2025: Patient seen and examined in ICU. on ventilator, no overnight events were noted. No CPAP trial until procedure on Thursday. Patient's last bowel movement was on the , senna was added, patient started on digoxin. 07/11/2025: Patient seen in examined in the ICU. patient is still on ventilator, on minimal ventilator settings, tidal volume was changed to 400. Patient has not had a bowel movement since , but abdomen soft. Patient is on fentanyl 175, propofol 24. chest ultrasound showed trace pleural effusion on the right side. Patient is to have heart catheterization tomorrow. 07/12/2025: Patient seen and examined in the ICU. patient is still on ventilator, on minimal ventilator settings, tidal volume was changed to 400. Patient underwent CALVIN, and is to undergo left heart cath today. : Patient seen and examined in ICU. Patient is still on ventilator, mineral ventilator setting, underwent left heart catheterization yesterday which was unsuccessful, cardioversion which was unsuccessful, today added metoprolol 25 mg p.o. b.i.d., PICC line to be placed, 1 pack of RBC was given. Today patient had bloody secretion from the ET tube, hematuria. Consult cardio if amiodarone can be given. 07/14/2025: Patient seen and examined in the ICU. Patient on ventilator, minimal ventilator setting, unsuccessful cardioversion, left heart catheterization, yesterday night patient's blood pressure dropped and metoprolol was changed to 12.5 mg. Hematuria has resolved, no bloody secretions from ET tube. Amnio is not to be given. 07/15/2025: Patient seen and examined in ICU. Continue pain ventilator. Trying to be off sedation. CPAP trial today. No any other new complaints Objective vital signs Vital Sign Date Time Temp Pulse Resp B/P (MAP) Pulse Ox O2 Delivery O2 Flow Rate FiO2 07/15/25 12:40 104 30 147/66 (93) 98 30 07/15/25 12:00 98.8 98.8 07/15/25 11:41 Mechanical Ventilator+ Total Intake and Output 07/14/25 07/14/25 07/15/25 15:00 23:00 07:00 Intake Total 354.0 ml 826.5 ml 427.345 ml Output Total 625 ml 1400 ml Balance 354.0 ml 201.5 ml -972.655 ml medications Current Medications Medications Dose Ordered Sig/Jesse Route Start Time Stop Time Status Last Admin Dose Admin Atorvastatin Calcium 40 mg HS PO 06/29/25 22:00 07/14/25 21:04 40 MG Fentanyl Citrate 250 ml @ 2.5 mls/hr Q24H IV 06/29/25 06:15 07/14/25 21:07 22.5 MLS/HR Aspirin 81 mg DAILY PO 06/30/25 10:00 07/15/25 08:21 81 MG Insulin Human Regular HS SC 06/29/25 22:00 Cancel Insulin Human Regular AC SC 06/29/25 17:00 Cancel Pantoprazole Sodium 40 mg DAILY IV 06/30/25 10:00 07/15/25 08:16 40 MG Clopidogrel Bisulfate 75 mg DAILY PO 06/30/25 10:00 07/15/25 08:22 75 MG Diagnostic Test (Pha) 1 strip IQ4HR 06/29/25 20:00 07/15/25 11:35 1 STRIP Insulin Human Regular IQ4HR SC 06/29/25 20:00 07/15/25 00:32 2 UNITS Dextrose 50 ml UD PRN IV 06/29/25 17:30 Midazolam HCl 100 ml @ 1 mls/hr Q24H IV 06/29/25 18:00 07/14/25 21:06 8 MLS/HR Enoxaparin Sodium 100 mg Q12HR SC 06/30/25 10:00 07/15/25 08:21 100 MG Enteral Nutritional Formula 1,000 ml 45ML/HR GT 06/30/25 17:15 07/14/25 21:08 1,000 ML Acetaminophen 650 mg Q4HP PRN PO 07/01/25 17:00 07/03/25 00:43 650 MG Vancomycin HCl 0 ml @ 0 mls/hr PER PHARMACY IV 07/02/25 13:15 Meropenem 50 ml @ 17 mls/hr Q8HR IV 07/04/25 22:00 07/15/25 05:24 17 MLS/HR Insulin Glargine 12 units HS SC 07/06/25 22:00 07/14/25 21:07 12 UNITS Polyethylene Glycol 17 gm DAILY PO 07/08/25 10:00 07/15/25 08:20 17 GM Propofol 100 ml @ 3.225 mls/ hr Q24H IV 07/08/25 09:45 07/11/25 08:43 16.125 MLS/HR Vancomycin HCl 100 ml @ 100 mls/hr Q12H IV 07/10/25 23:00 07/15/25 11:00 100 MLS/HR Sennosides 8.6 mg HS PO 07/10/25 22:00 07/14/25 21:04 8.6 MG Digoxin 250 mcg DAILY IV 07/12/25 10:00 07/15/25 08:22 250 MCG Lactulose 30 ml DAILY PO 07/12/25 10:00 07/15/25 08:16 30 ML Empaglifozin 10 mg DAILY PO 07/14/25 10:00 07/15/25 08:21 10 MG Metoprolol Tartrate 12.5 mg BID PO 07/14/25 10:00 07/15/25 08:22 12.5 MG Sodium Chloride 10 ml QSHIFT@10,22 IV 07/14/25 22:00 07/15/25 08:20 10 ML Examination General: intubated, sedated HEENT: Normocephalic, atraumatic, moist mucous membranes Respiratory/pulmonary: Clear lungs bilaterally, vesicular murmurs present in almost all lung roberts, no associated crackles or wheezes. Cardiovascular: Normal heart sounds S1 and S2 with no associated murmurs Abdomen: Abdomen nondistended, there is no pain to palpation in any of the abdominal quadrants, no palpable masses. Extremities: There is no peripheral edema present at the lower extremities. Bilateral erythematous and ulcerated lesions. Skin: No rashes or pruritus, there is no sacral edema present at this time. laboratory and microbiology Laboratory Tests 07/15/25 02:42 Test 07/15/25 02:42 Range/Units Serum Glucose 138 H 74-106 mg/dL Microbiology Date/Time Source Procedure Growth Status 07/11/25 14:17 Blood Blood Culture - Preliminary NO GROWTH AFTER 72 HOURS OF INCUBATION. Resulted 07/03/25 16:00 Sputum Gram Stain - Final Complete 07/03/25 16:00 Respiratory Culture - Final Pseudomonas aeruginosa Serratia marcescens Complete 07/01/25 22:35 Urine - Catheterized Urine Culture - Final Complete 06/29/25 04:30 Nose MRSA Screen - Final Complete Problem List/Assessment/Plan Problem List/Assessment/Plan Neurology Acute metabolic encephalopathy History of CVA-with residual aphasia, right-sided deficit -Sedation/neurological status: Rass score -3 - off of Levophed, phenylephrine Cardiology Cardiac arrest secondary to ventricular arrhythmia (ventricular tachycardia, torsade de pointes) NSTEMI type 1 status post PCI Newly diagnosed coronary artery disease - triple-vessel disease Prolonged QT Paroxysmal atrial fibrillation with RVR Hypertension Dyslipidemia - EKG showed atrial fibrillation with anterior T-wave inversions, prolonged QT - coronary angiography showed severe triple-vessel disease with acutely occluded circumflex status post PCI with 1 drug-eluting stent placed. -ventriculogram showed LVEF of 15% - ordered echocardiography, lvef 20%, moderate LV enlargement, severe end stage HF - avoid QT prolongation medications - Dany Vasc score 7 -currently on vasopressors Levophed, phenylephrine -severe CAD in LAD and RCA, plan to do angiography on Thursday -patient given aspirin, atorvastatin, clopidogrel - ordered 12.5 metoprolol tartrate b.i.d. - LHC done (07/05) with 3 stents placed in LAD. - Planning on new stage procedure to RCA on Thursday. Repeat echocardiogram. - digoxin 250 mcg added, - metoprolol 25 mg p.o. b.i.d. added Respiratory Acute hypoxic respiratory failure likely due to cardiac arrest Possible Aspiration Pneumonia -ventilator settings: VT 500, respiratory rate 17, FiO2 30 %, PEEP 5 -chest x-ray: Similar bilateral inferior graded opacities, likely a combination of airspace disease and pleural effusion. Genitourinary/kidney Acute kidney injury likely due to be VMN -medication: Given Lasix 20 mg once -strict I&Os -nephrotoxic drugs Endocrine Uncontrolled diabetes mellitus, HbA1c 10.6 - on insulin sliding scale Infectious Septic shock due to Aspiration pneumonia -urine culture preliminary negative -blood cultures ordered, as WBC elevated and fever present -blood culture showed positive staph coagulase negative. - repeat blood cultures negative - Respiratory culture (07/03) - Pseudomonas aeruginosa - IV vancomycin, meropenem started(07/04) - repeat blood cultures (07/12) were negative Transaminitis - monitor labs Obesity BMI 33.0 Lines / Tubes / Devices Airway: Intubated via ETT on 06/29 Vascular Access: Central line 06/29 Drips: Fentanyl, midazolam, norepinephrine, phenylephrine, Versed Prophylaxis / Supportive Care DVT Prophylaxis: Lovenox. GI Prophylaxis: Protonix. Plan for CPAP trial today, patient did not fully awake, if patient fails CPAP trial today, possible CPAP trial again tomorrow. Goals of care discussed with the patient family for more than 29 minutes: Full code state Patient care updated to (Myrna), addressed all concerns. Critical care time spent excluding procedures 83 minutes Plan discussed with Dr. Mason and RN Plan discussed with: Other (RN) My Orders My Orders Orders - ANIBAL NAGEL Procedure Category Date Status Time Nursing Protocol Picc GRADY 07/14/25 In Process 16:10 Change Dressing Prn [facility] 07/14/25 In Process 16:10 PICC BD 07/14/25 Transmitted 16:10 Sodium Chloride Lock PHA 07/14/25 In Process (Saline Lock Ns) 22:00 Do Not Use Picc For [facility] 07/14/25 In Process Blood Cult 16:10 May Draw Blood From [facility] 07/14/25 In Process Picc 16:10 Chest Portable XY 07/14/25 Resulted 16:10 Ok To Use Picc [facility] 07/14/25 In Process 16:10 Change Picc Dressing [facility] 07/14/25 In Process Q7 Days 16:10 Dietary Evaluation Review Comments: 1. Protein needs based on 1.2-1.5g/protein/kg IBW d/t low GFR 2. While being intubated, offer TF Vital HP @45ml/hr, in 24 hr, Pt will receive 94g protein, 1080lkcal 903ml free water, meeting pts needs at 97% protein and 100% energy. 3. Consider TPN to meet pt's needs if Pt does not tolerate TF well. 4. Reassess when pt extubated, advance to CCHO-60 PO diet after passing a THREE KNIFE TRIMMER evluation. Expected Outcomes/Goals: off intubation, advance to CCHO-60 Cardiac diet, gradual wt loss ANIBAL NAGEL Jul 15, 2025 12:54
--- NOTE | 2025-07-15 23:58 | DVHPN2 ---
Subjective DOS: 07/15/2025 Patient seen and examined at bedside. intubated on mechanical ventilator. Overnight events reviewed. Changes from previous H/P or p: No Changes Objective Vitals Vital Signs Date Time Temp Pulse Resp B/P (MAP) Pulse Ox O2 Delivery O2 Flow Rate FiO2 07/15/25 23:30 99.3 78 30 104/44 (64) 96 210.7 07/15/25 22:09 30 07/15/25 22:00 Mechanical Ventilator+ Intake/Output Intake and Output 07/15/25 07:00 Intake Total 1607.845 ml Output Total 2025 ml Balance -417.155 ml Intake Oral 360 ml IV Total 891.845 ml Tube Feeding 356 ml Output Urine Total 2025 ml Exam Gen.: Patient lying in bed in medical ICU. Intubated on mechanical ventilator. Head: Normocephalic, atraumatic. Eyes: PERRLA. Ears: Normal external anatomy. Throat: Endotracheal tube and orogastric tube in place. Neck: Supple, trachea midline. Chest: Transmitted breath sounds bilaterally. Decreased air entry bilaterally. No wheezing. Bibasilar crackles. Cardiovascular: Positive S1, positive S2. Regular rate and rhythm. Abdomen: Positive bowel sounds in all 4 quadrants. Soft, nontender, nondistended. : Daley in place. Normal external genitalia. Rectal: Deferred. Skin: Warm, dry. Intact. Extremities: 2+ radial pulses bilaterally. No lower extremity edema. Neuro: Off sedation. Awake, alert. Medications Current Medications Medications Dose Ordered Sig/Jesse Route Start Time Stop Time Status Last Admin Dose Admin Atorvastatin Calcium 40 mg HS PO 06/29/25 22:00 07/15/25 20:55 40 MG Fentanyl Citrate 250 ml @ 2.5 mls/hr Q24H IV 06/29/25 06:15 07/14/25 21:07 22.5 MLS/HR Aspirin 81 mg DAILY PO 06/30/25 10:00 07/15/25 08:21 81 MG Insulin Human Regular HS SC 06/29/25 22:00 Cancel Insulin Human Regular AC SC 06/29/25 17:00 Cancel Pantoprazole Sodium 40 mg DAILY IV 06/30/25 10:00 07/15/25 08:16 40 MG Clopidogrel Bisulfate 75 mg DAILY PO 06/30/25 10:00 07/15/25 08:22 75 MG Diagnostic Test (Pha) 1 strip IQ4HR 06/29/25 20:00 07/15/25 23:48 1 STRIP Insulin Human Regular IQ4HR SC 06/29/25 20:00 07/15/25 20:53 4 UNITS Dextrose 50 ml UD PRN IV 06/29/25 17:30 Midazolam HCl 100 ml @ 1 mls/hr Q24H IV 06/29/25 18:00 07/15/25 21:01 3 MLS/HR Enoxaparin Sodium 100 mg Q12HR SC 06/30/25 10:00 07/15/25 20:55 100 MG Enteral Nutritional Formula 1,000 ml 45ML/HR GT 06/30/25 17:15 07/14/25 21:08 1,000 ML Acetaminophen 650 mg Q4HP PRN PO 07/01/25 17:00 07/03/25 00:43 650 MG Vancomycin HCl 0 ml @ 0 mls/hr PER PHARMACY IV 07/02/25 13:15 Meropenem 50 ml @ 17 mls/hr Q8HR IV 07/04/25 22:00 07/15/25 20:56 17 MLS/HR Insulin Glargine 12 units HS SC 07/06/25 22:00 07/15/25 20:54 12 UNITS Polyethylene Glycol 17 gm DAILY PO 07/08/25 10:00 07/15/25 08:20 17 GM Propofol 100 ml @ 3.225 mls/ hr Q24H IV 07/08/25 09:45 07/11/25 08:43 16.125 MLS/HR Vancomycin HCl 100 ml @ 100 mls/hr Q12H IV 07/10/25 23:00 07/15/25 23:48 100 MLS/HR Sennosides 8.6 mg HS PO 07/10/25 22:00 07/15/25 20:55 8.6 MG Digoxin 250 mcg DAILY IV 07/12/25 10:00 07/15/25 08:22 250 MCG Lactulose 30 ml DAILY PO 07/12/25 10:00 07/15/25 08:16 30 ML Empaglifozin 10 mg DAILY PO 07/14/25 10:00 07/15/25 08:21 10 MG Metoprolol Tartrate 12.5 mg BID PO 07/14/25 10:00 07/15/25 20:56 12.5 MG Sodium Chloride 10 ml QSHIFT@10,22 IV 07/14/25 22:00 07/15/25 20:56 10 ML Laboratory Results Laboratory Tests 07/15/25 02:42 Chemistry Test 07/15/25 02:42 Albumin 2.3 g/dL (3.2-4.8) L Calcium Level 7.5 mg/dL (8.7-10.4) L Magnesium Level 2.2 mg/dL (1.6-2.6) Total Protein 5.6 g/dL (5.7-8.2) L Lipid panel Test 07/15/25 02:42 Cholesterol Level 98 mg/dL (< 200) HDL Cholesterol 25 mg/dL (40-59) L Triglycerides Level 112 mg/dL (< 150) LFT Test 07/15/25 02:42 Alanine Aminotransferase (ALT) 14 U/L (7-40) Alkaline Phosphatase 107 U/L (46-116) Aspartate Amino Transferase (AST) 19 U/L (13-40) Total Bilirubin 1.0 mg/dL (0.2-1.0) Urinalysis Test 06/28/25 17:12 Urine Color Colorless (Yellow) Urine Clarity Clear (Clear) Urine pH 5.0 (5.0-9.0) Urine Specific Sarita 1.005 (1.001-1.035) Urine Protein Negative (Negative) Urine Ketones Negative (Negative) Urine Blood Negative /uL (Negative) Urine Nitrite Negative (Negative) Urine Bilirubin Negative (Negative) Urine Urobilinogen Normal mg/dL (Negative) Urine Leukocyte Esterase Negative /uL (Negative) Urine RBC 1 /hpf (0 - 3) Urine Microscopic WBC < 1 /HPF (0-3) Urine Squamous Epithelial Cells None seen /hpf (<5) Urine Bacteria None seen /hpf (None Seen) Urine Glucose 2+ mg/dL (Normal) H Blood Gas Results Test 07/15/25 07:41 Arterial Blood pH 7.475 (7.350-7.450) FiO2 % 30.0 Microbiology Microbiology Date/Time Source Procedure Growth Status 07/11/25 14:17 Blood Blood Culture - Preliminary NO GROWTH AFTER 72 HOURS OF INCUBATION. Resulted 07/03/25 16:00 Sputum Gram Stain - Final Complete 07/03/25 16:00 Respiratory Culture - Final Pseudomonas aeruginosa Serratia marcescens Complete 07/01/25 22:35 Urine - Catheterized Urine Culture - Final Complete 06/29/25 04:30 Nose MRSA Screen - Final Complete Assessment/Plan Assessment/Plan Impression: Acute hypoxic respiratory failure On mechanical ventilator Acute metabolic encephalopathy Septic shock Aspiration pneumonia Non-ST elevation OK Paroxysmal atrial fibrillation w/ RVR History of CVA Acute kidney injury Obesity Events: Patient seen and examined in ICU. Tapered sedation Awake, alert. Currently on CPAP with PS 8, PEEP 5, FiO2 30% Continue with CPAP for exercise as tolerated. Vent support On AC mode; RR 18, VT 400, PEEP 5, FiO2 30% Taper FIO2 as tolerated ABG notable for alkalemia KUB reveals no small bowel obstruction. Off tube feeds due to high residuals. GI recs appreciated. Follow up Nutrition recommendations AFib with RVR Pt underwent unsuccessful cardioversion, left heart catheterization Monitor BP due to hypotension - on metoprolol 12.5 mg BID. Hematuria has resolved, no bloody secretions from ET tube. Amiodarone is not to be given. Cardiology recommendations appreciated Continue anticoagulation Continue bronchodilators/Mucomyst Continue antibiotics. Sputum cx grew Pseudomonas aeruginosa and Serratia marcescens Monitor WBC No fevers. Wound care No BMs since 06/28/25 - on lactulose. Patient underwent left heart catheterization 07/06/25 with 3 stents placed in the LAD. Cardiology recs appreciated. Labs and imaging reviewed. Plan: s/p intubation on mechanical ventilator. On AC mode; RR 18, VT 400, PEEP 5, FiO2 30% Titrate FIO2 to keep O2 saturation above 90%. VAP bundle. Daily ABG and CXR while intubated Continue bronchodilators/Mucomyst Continue antibiotics. Follow up cultures. Pressors as necessary for hemodynamic support Titrate to keep mean arterial pressure greater than 65 mmHg. Accu-Cheks, ISS Monitor renal function Monitor electrolytes. Supplement as necessary. Monitor ins and outs. Maintain euvolemia. GI prophylaxis. DVT prophylaxis. Recommend diet and lifestyle modifications for weight reduction Obesity complicates all care Prognosis: Poor given patient's multiple co-morbidities. Condition: Critical Rest of plan per hospitalist and other consultants. A total of 35 minutes of critical care time was spent reviewing the patient record, examining the patient, making a diagnostic and therapeutic plan, discussing this plan with the medical personnel, following up on diagnostic studies and following the patient for clinical stability excluding any and all procedures. At least 50% of this time was spent in direct, [id number] contact. Thank you, , for allowing me to participate in this patient's care. Further recommendations will depend on the patient's clinical course. Please do not hesitate to contact me if you have any questions or concerns. This medical document was created using an electronic medical record system with [employer] dictation system. Although these documentations are being carefully reviewed, there may still be some phonetic and typographical changes. The errors are purely typographical, due to imperfection on the software program, and do not reflect any compromise in the patient's medical care. Plan discussed with: Other (NAM Aguiar) Visit Coding Pulmonary Billing Provider: ENRIQUE ODONNELL MD Date of Service if different f: Jul 15, 2025 Common Visit Codes: 64102-[id number] INP/OBS CARE(HIGH), 02760-[id number] CARE 30-74 MIN ENRIQUE DOONNELL MD Jul 15, 2025 23:58
[2025-07-16] VITALS (114 sets, daily range): BP systolic 94–168; BP diastolic 31–77; PULSE 73–143; RESP 11–42; TEMP 96.8–100.2; O2SAT 91–100
[2025-07-16 04:02] LABS: Hematocrit 24.4 % (41.0-53.0); Hemoglobin 8.5 g/dL (13.5-17.5); Mean Corpuscular Hemoglobin 28.9 pg (28.0-32.0); Mean Corpuscular Volume 83.3 fL (80.0-100.0); Nucleated Red Blood Cells % 0.0 %
--- NOTE | 2025-07-16 06:20 | DVH ---
EXAM: XY CHEST XRAY 1 VIEW HISTORY: on vent COMPARISON: XY CHEST XRAY 1 VIEW on DOS: 07/15/25, XY CHEST PORTABLE on DOS: 07/14/25, XY CHEST XRAY 1 VIEW on DOS: 07/14/25, XY CHEST XRAY 1 VIEW on DOS: 07/13/25, XY CHEST PORTABLE on DOS: 07/12/25 TECHNIQUE: Portable AP view of the chest was performed. FINDINGS: Endotracheal tube is re-identified with its tip 3 cm above the kolby. OG tube and right upper extremity PICC line are re-identified. There are bilateral lung base infiltrates and effusions, [id number], similar to that seen on the Previous chest x-ray. No pneumothorax. The heart is likely enlarged, although cardiac margins are not distinct. The aortic arch is calcific. The central pulmonary arteries may be ectatic. IMPRESSION: 1. Mechanical ventilation with tubes and lines as above. 2. Bilateral lung base infiltrates and effusions, [id number], stable.
[2025-07-16 07:02] LABS: Base Excess 4.7 mmol/L (-2.0-3.0)
[2025-07-16 08:19] LABS: Carbon Dioxide 29 mmol/L (20-31)
[2025-07-16 08:24] LABS: BUN/Creatinine Ratio 28.9 (10.0-20.0); Magnesium 2.3 mg/dL (1.6-2.6)
[2025-07-16 08:25] LABS: Blood Urea Nitrogen 24 mg/dL (9-23); Calcium 7.7 mg/dL (8.7-10.4); Glucose 120 mg/dL (74-106)
[2025-07-16 08:45] LABS: Anion Gap 7 (5-15); Chloride 109 mmol/L (98-107); Potassium 4.6 mmol/L (3.5-5.1); Sodium 145 mmol/L (136-145)
[2025-07-16] MEDS: FUROSEMIDE 20 MG/2 ML VIAL IV ONE (09:04)
--- NOTE | 2025-07-16 11:16 | DVHPNRES ---
Progress Note Date Seen: Jul 16, 2025 Resident Creating Document: CYNTHIA LOVE RESIDENT Medical Necessity Reason Pt with a Central, PICC or Fol: Yes The following are medically ne: Central Line, Lau Catheter Reason for lau catheter: Strict I&O Subjective Review of Systems Patient is a 74-year-old male with past medical history of hypertension, diabetes type 2, dyslipidemia, paroxysmal atrial fibrillation, CVA in 2019, presented to the ED with chief complaints of 3 days of palpitations, shortness of breath before his admission. On arrival to the ED patient was found to have atrial fibrillation with RVR and was started on a diltiazem drip to control his heart rate. Patient progressed to have cardiac arrest secondary to ventricular arrhythmias possibly ventricular tachycardia or torsades de Pointe. Patient required CPR and ACLS maneuvers for 8 minutes followed by endotracheal intubation, obtained by ROSC. Patient was initially on amiodarone drip which was later discontinued after magnesium was given for QT prolongation. Due to clinical status obtained history of present illness and past medical history from EMR and who is at bedside. Could not obtain review of systems. Cardiology consulted for elevated troponins. Past medical history: Hypertension, dyslipidemia, diabetes, paroxysmal atrial fibrillation diagnosed in 2017 (chads Vasc 7), 2019 CVA Past surgical history: Appendectomy Family history: Two brothers had heart disease requiring CABG at the age of 40 and 50 respectively, brother had lung cancer, mother had breast cancer Social history: with . Ex tobacco abuse (eight pack-year history of smoking) quit 30 years ago. Denies current tobacco, alcohol and other drug abuse Allergies: Denies Home medication: Pradaxa 150 mg p.o. daily, atorvastatin 40 mg p.o. daily, hydrochlorothiazide 12.5 mg p.o. daily, lisinopril 20 mg p.o. daily, glipizide, metformin a 1000 mg p.o. b.i.d., metoprolol (he quit taking for four months since it made him tired). 06/30/25: Patient seen and examined at bedside. Patient is currently sedated and on mechanically ventilation, with ventilator settings at tidal volume 500, FiO2 30%, peep at 5, off of pressors phenylephrine and norepinephrine. 07/01/2025: Patient seen and examined at bedside. Patient is currently sedated and mechanically ventilated. Patient today has fever and elevated WBC, blood culture ordered. Patient is on pressor Levophed 9, patient's HR 150- 160s, order was given of metoprolol IV 5 mg with partial control of the RVR, also digoxin loading dose given. Metoprolol 25 mg PO daily was also placed for tomorrow. 07/02/2025: Patient seen and examined in ICU. Hr is under controlled. Intubated. temperature 99.3 started cefepime and vancomycin. blood culture G + bacteria. 07/03/2025 :Patient seen and examined in the ICU. Patient heart rate is under control, patient is intubated, mechanically ventilated, temperature 100.6. continue cefepime, vancomycin. Repeat blood cultures were ordered.(Staph coagulase negative, could be contaminate). Planning on performing LHC on Thursday07/05/2025, have informed . 07/04/2025: Patient seen and examined in ICU. Patient is mechanically intubated, patient had a fever yesterday night but decreased. Sputum culture showed Gram-negative rods. Discontinued cefepime. Started meropenem, 12.5 metoprolol b.i.d. Repeat blood cultures are negative. Planning on performing LHC on Thursday07/05/2025, have informed . 07/05/25: Patient seen and examined in ICU. Patient is mechanically intubated, patient had Bradycardia overnight for wich metoprlol was held. LHC was done today with 3 stents placed in the LAD. Possible RHC to be done. 07/06/2025: patient seen and examined in ICU. Patient is mechanically ventilated, had a left heart catheterization done yesterday with 3 stents placed in the LAD, Planning to do next procedure in one week to RCA. 07/07/2025: patient seen and examined in ICU. Patient is mechanically ventilated, had a left heart catheterization done yesterday with 3 stents placed in the LAD, CPAP trial done today, failed, we will try again tomorrow. 07/08/2025:patient seen and examined in ICU . on ventilator. CPAP trial failed, become tachypneic. we will try again. 07/09/2025: Patient seen and examined in ICU, on ventilator, overnight patient had AFib with RVR, so CPAP trial was deferred for today. We will try again tomorrow. discontinue metoprolol, patient's last bowel movement was on the so lactulose was given. Patient's WBC is 17.1. Cardiology following. Patient is to have a heart catheterization on Thursday. 07/10/2025: Patient seen and examined in ICU. on ventilator, no overnight events were noted. No CPAP trial until procedure on Thursday. Patient's last bowel movement was on the , senna was added, patient started on digoxin. 07/11/2025: Patient seen in examined in the ICU. patient is still on ventilator, on minimal ventilator settings, tidal volume was changed to 400. Patient has not had a bowel movement since , but abdomen soft. Patient is on fentanyl 175, propofol 24. chest ultrasound showed trace pleural effusion on the right side. Patient is to have heart catheterization tomorrow. 07/12/2025: Patient seen and examined in the ICU. patient is still on ventilator, on minimal ventilator settings, tidal volume was changed to 400. Patient underwent CALVIN, and is to undergo left heart cath today. : Patient seen and examined in ICU. Patient is still on ventilator, mineral ventilator setting, underwent left heart catheterization yesterday which was unsuccessful, cardioversion which was unsuccessful, today added metoprolol 25 mg p.o. b.i.d., PICC line to be placed, 1 pack of RBC was given. Today patient had bloody secretion from the ET tube, hematuria. Consult cardio if amiodarone can be given. 07/14/2025: Patient seen and examined in the ICU. Patient on ventilator, minimal ventilator setting, unsuccessful cardioversion, left heart catheterization, yesterday night patient's blood pressure dropped and metoprolol was changed to 12.5 mg. Hematuria has resolved, no bloody secretions from ET tube. Amnio is not to be given. 07/15/2025: Patient seen and examined in ICU. Continue pain ventilator. Trying to be off sedation. CPAP trial today. No any other new complaints 07/16/2025: Patient seen and examined in ICU. CPAP trial today. Off sedation, pressors. Lasix 20 mg was given. CPAP trial today failed, we will try again tomorrow. Patient had big bruise on right side, ordered h and h, and abdominal CT, if bleeding present hold Lovenox but not aspirin. Objective vital signs Vital Sign Date Time Temp Pulse Resp B/P (MAP) Pulse Ox O2 Delivery O2 Flow Rate FiO2 07/16/25 10:31 99.5 115 19 125/50 (75) 97 211.1 07/16/25 09:53 30 07/16/25 09:33 Mechanical Ventilator+ Total Intake and Output 07/15/25 07/15/25 07/16/25 15:00 23:00 07:00 Intake Total 175.863 ml 287.070 ml 325.760 ml Output Total 950 ml 800 ml Balance 175.863 ml -662.930 ml -474.240 ml medications Current Medications Medications Dose Ordered Sig/Jesse Route Start Time Stop Time Status Last Admin Dose Admin Atorvastatin Calcium 40 mg HS PO 06/29/25 22:00 07/15/25 20:55 40 MG Fentanyl Citrate 250 ml @ 2.5 mls/hr Q24H IV 06/29/25 06:15 07/14/25 21:07 22.5 MLS/HR Aspirin 81 mg DAILY PO 06/30/25 10:00 07/16/25 09:05 81 MG Insulin Human Regular HS SC 06/29/25 22:00 Cancel Insulin Human Regular AC SC 06/29/25 17:00 Cancel Pantoprazole Sodium 40 mg DAILY IV 06/30/25 10:00 07/16/25 09:04 40 MG Clopidogrel Bisulfate 75 mg DAILY PO 06/30/25 10:00 07/16/25 09:04 75 MG Diagnostic Test (Pha) 1 strip IQ4HR 06/29/25 20:00 07/16/25 08:00 1 STRIP Insulin Human Regular IQ4HR SC 06/29/25 20:00 07/15/25 20:53 4 UNITS Dextrose 50 ml UD PRN IV 06/29/25 17:30 Midazolam HCl 100 ml @ 1 mls/hr Q24H IV 06/29/25 18:00 07/15/25 21:01 3 MLS/HR Enoxaparin Sodium 100 mg Q12HR SC 06/30/25 10:00 07/16/25 09:06 100 MG Enteral Nutritional Formula 1,000 ml 45ML/HR GT 06/30/25 17:15 07/14/25 21:08 1,000 ML Acetaminophen 650 mg Q4HP PRN PO 07/01/25 17:00 07/03/25 00:43 650 MG Vancomycin HCl 0 ml @ 0 mls/hr PER PHARMACY IV 07/02/25 13:15 Meropenem 50 ml @ 17 mls/hr Q8HR IV 07/04/25 22:00 07/16/25 05:05 17 MLS/HR Insulin Glargine 12 units HS SC 07/06/25 22:00 07/15/25 20:54 12 UNITS Polyethylene Glycol 17 gm DAILY PO 07/08/25 10:00 07/16/25 09:03 17 GM Propofol 100 ml @ 3.225 mls/ hr Q24H IV 07/08/25 09:45 07/11/25 08:43 16.125 MLS/HR Vancomycin HCl 100 ml @ 100 mls/hr Q12H IV 07/10/25 23:00 07/16/25 10:54 100 MLS/HR Sennosides 8.6 mg HS PO 07/10/25 22:00 07/15/25 20:55 8.6 MG Digoxin 250 mcg DAILY IV 07/12/25 10:00 07/16/25 09:06 250 MCG Lactulose 30 ml DAILY PO 07/12/25 10:00 07/16/25 09:03 30 ML Empaglifozin 10 mg DAILY PO 07/14/25 10:00 07/16/25 09:05 10 MG Metoprolol Tartrate 12.5 mg BID PO 07/14/25 10:00 07/16/25 09:05 12.5 MG Sodium Chloride 10 ml QSHIFT@10,22 IV 07/14/25 22:00 07/16/25 09:04 10 ML Examination General: intubated, sedated HEENT: Normocephalic, atraumatic, moist mucous membranes Respiratory/pulmonary: Clear lungs bilaterally, vesicular murmurs present in almost all lung roberts, no associated crackles or wheezes. Cardiovascular: Normal heart sounds S1 and S2 with no associated murmurs Abdomen: Abdomen nondistended, there is no pain to palpation in any of the abdominal quadrants, no palpable masses. Extremities: There is no peripheral edema present at the lower extremities. Bilateral erythematous and ulcerated lesions. Skin: No rashes or pruritus, there is no sacral edema present at this time. laboratory and microbiology Laboratory Tests 07/16/25 03:10 Test 07/16/25 03:10 Range/Units Serum Glucose 120 H 74-106 mg/dL Microbiology Date/Time Source Procedure Growth Status 07/11/25 14:17 Blood Blood Culture - Preliminary NO GROWTH AFTER 72 HOURS OF INCUBATION. Resulted 07/03/25 16:00 Sputum Gram Stain - Final Complete 07/03/25 16:00 Respiratory Culture - Final Pseudomonas aeruginosa Serratia marcescens Complete 07/01/25 22:35 Urine - Catheterized Urine Culture - Final Complete 06/29/25 04:30 Nose MRSA Screen - Final Complete Problem List/Assessment/Plan Problem List/Assessment/Plan Neurology Acute metabolic encephalopathy History of CVA-with residual aphasia, right-sided deficit -Sedation/neurological status: Rass score -3 - off of Levophed, phenylephrine Cardiology Cardiac arrest secondary to ventricular arrhythmia (ventricular tachycardia, torsade de pointes) NSTEMI type 1 status post PCI Newly diagnosed coronary artery disease - triple-vessel disease Prolonged QT Paroxysmal atrial fibrillation with RVR Hypertension Dyslipidemia - EKG showed atrial fibrillation with anterior T-wave inversions, prolonged QT - coronary angiography showed severe triple-vessel disease with acutely occluded circumflex status post PCI with 1 drug-eluting stent placed. -ventriculogram showed LVEF of 15% - ordered echocardiography, lvef 20%, moderate LV enlargement, severe end stage HF - avoid QT prolongation medications - Dany Vasc score 7 -currently on vasopressors Levophed, phenylephrine -severe CAD in LAD and RCA, plan to do angiography on Thursday -patient given aspirin, atorvastatin, clopidogrel - ordered 12.5 metoprolol tartrate b.i.d. - C done (07/05) with 3 stents placed in LAD. - Planning on new stage procedure to RCA on Thursday. Repeat echocardiogram. - digoxin 250 mcg added, - metoprolol 25 mg p.o. b.i.d. added Respiratory Acute hypoxic respiratory failure likely due to cardiac arrest Possible Aspiration Pneumonia -ventilator settings: VT 500, respiratory rate 17, FiO2 30 %, PEEP 5 -chest x-ray: Similar bilateral inferior graded opacities, likely a combination of airspace disease and pleural effusion. Genitourinary/kidney Acute kidney injury likely due to be VMN -medication: Given Lasix 20 mg once -strict I&Os -nephrotoxic drugs Endocrine Uncontrolled diabetes mellitus, HbA1c 10.6 - on insulin sliding scale Infectious Septic shock due to Aspiration pneumonia -urine culture preliminary negative -blood cultures ordered, as WBC elevated and fever present -blood culture showed positive staph coagulase negative. - repeat blood cultures negative - Respiratory culture (07/03) - Pseudomonas aeruginosa - IV vancomycin, meropenem started(07/04) - repeat blood cultures (07/12) were negative Transaminitis - monitor labs Obesity BMI 33.0 Lines / Tubes / Devices Airway: Intubated via ETT on 06/29 Vascular Access: Central line 06/29 Drips: Fentanyl, midazolam, norepinephrine, phenylephrine, Versed Prophylaxis / Supportive Care DVT Prophylaxis: Lovenox. GI Prophylaxis: Protonix. Goals of care discussed with the patient family for more than 29 minutes: Full code state Patient care updated to (Myrna), addressed all concerns. Critical care time spent excluding procedures 85 minutes Plan discussed with Dr. Mason and RN Plan discussed with: Spouse Dietary Evaluation Review Comments: 1. Protein needs based on 1.2-1.5g/protein/kg IBW d/t low GFR 2. While being intubated, offer TF Vital HP @45ml/hr, in 24 hr, Pt will receive 94g protein, 1080lkcal 903ml free water, meeting pts needs at 97% protein and 100% energy. 3. Consider TPN to meet pt's needs if Pt does not tolerate TF well. 4. Reassess when pt extubated, advance to CCHO-60 PO diet after passing a PURCHASING ADMINISTRATOR evluation. Expected Outcomes/Goals: off intubation, advance to CCHO-60 Cardiac diet, gradual wt loss CYNTHIA LOVE RESIDENT Jul 16, 2025 11:16
[2025-07-16 17:39] LABS: Hematocrit 27.4 % (41.0-53.0); Hemoglobin 9.1 g/dL (13.5-17.5)
--- NOTE | 2025-07-16 18:12 | DVH ---
EXAM: CT CT AB PEL WO CON-NO ORAL OR IV INDICATION: R/O hematoma or fluid collection on right flank TECHNIQUE: Volumetric multidetector CT images of the abdomen and pelvis were obtained without contrast. All CT scans at this facility use dose modulation, iterative reconstruction, and/or weight based dosing when appropriate to reduce radiation dose to as low as reasonably achievable. COMPARISON: None FINDINGS: [LOWER CHEST]: Small to medium right sided pleural effusion. Partial collapse of bilateral lower lobes. Coronary artery calcifications. trace pericardial effusion. [LIVER]: Normal hepatic size without suspicious focal lesion. [GALLBLADDER AND BILIARY TREE]: Presumed vicarious excretion of contrast within the gallbladder [SPLEEN]: Unremarkable. [PANCREAS]: Unremarkable. [ADRENAL GLANDS]: Unremarkable [KIDNEYS]: No hydronephrosis. No nephroureterolithiasis. Streak artifact crossing the abdomen and therefore attenuation of the kidneys can not be accurately assessed however possible retention of areas of contrast/enhancement of the kidneys suggestive of medical renal disease /injury [BLADDER]: Decompressed [REPRODUCTIVE ORGANS]: Unremarkable. [BOWEL/MESENTERY]: Decompressed with nasogastric tube. Wmpc-np-lumubopj stool burden. Air-fluid level throughout the ascending to transverse colon without dilation rectal temperature probe. Minimal sigmoid diverticulosis [ASCITES]: Absent [LYMPHADENOPATHY]: No pathologically enlarged lymph nodes by CT size criteria [VASCULATURE]: No aneurysmal dilatation. [ABDOMINAL WALL]: Significant nekz-iaceczu-vgxu-right rectus abdominis muscle hematomas. Left side demonstrates fluid fluid level compatible with varying stages of blood productsr left-sided measures 7.7 x 9 cm. Right-sided measures 4.3 x 7.8 cm. [MUSCULOSKELETAL]: No acute fracture or aggressive focal osseous lesion. Multifocal degenerative change of the visualized spine. IMPRESSION: 1. Significant sdze-uiqobvd-axeb-right rectus abdominis muscle hematomas. Left side demonstrates fluid fluid level compatible with varying stages of blood productsr left-sided measures 7.7 x 9 cm. Right-sided measures 4.3 x 7.8 cm.
--- NOTE | 2025-07-16 23:14 | DVHPN2 ---
Subjective DOS: 07/16/2025 Patient seen and examined at bedside. intubated on mechanical ventilator. Overnight events reviewed. Changes from previous H/P or p: No Changes Objective Vitals Vital Signs Date Time Temp Pulse Resp B/P (MAP) Pulse Ox O2 Delivery O2 Flow Rate FiO2 07/16/25 22:44 120 35 103/50 (67) 99 30 07/16/25 22:00 Mechanical Ventilator+ 07/16/25 18:31 98.8 209.8 Intake/Output Intake and Output 07/16/25 06:59 Intake Total 788.693 ml Output Total 1750 ml Balance -961.307 ml Intake Oral 110 ml IV Total 498.693 ml Tube Feeding 180 ml Output Urine Total 1750 ml Exam Gen.: Patient lying in bed in medical ICU. Intubated on mechanical ventilator. Head: Normocephalic, atraumatic. Eyes: PERRLA. Ears: Normal external anatomy. Throat: Endotracheal tube and orogastric tube in place. Neck: Supple, trachea midline. Chest: Transmitted breath sounds bilaterally. Decreased air entry bilaterally. No wheezing. Bibasilar crackles. Cardiovascular: Positive S1, positive S2. Regular rate and rhythm. Abdomen: Positive bowel sounds in all 4 quadrants. Soft, nontender, nondistended. : Daley in place. Normal external genitalia. Rectal: Deferred. Skin: Warm, dry. Intact. Extremities: 2+ radial pulses bilaterally. No lower extremity edema. Neuro: Off sedation. Awake, alert. Medications Current Medications Medications Dose Ordered Sig/Jesse Route Start Time Stop Time Status Last Admin Dose Admin Atorvastatin Calcium 40 mg HS PO 06/29/25 22:00 07/16/25 21:00 40 MG Fentanyl Citrate 250 ml @ 2.5 mls/hr Q24H IV 06/29/25 06:15 07/14/25 21:07 22.5 MLS/HR Aspirin 81 mg DAILY PO 06/30/25 10:00 07/16/25 09:05 81 MG Insulin Human Regular HS SC 06/29/25 22:00 Cancel Insulin Human Regular AC SC 06/29/25 17:00 Cancel Pantoprazole Sodium 40 mg DAILY IV 06/30/25 10:00 07/16/25 09:04 40 MG Clopidogrel Bisulfate 75 mg DAILY PO 06/30/25 10:00 07/16/25 09:04 75 MG Diagnostic Test (Pha) 1 strip IQ4HR 06/29/25 20:00 07/16/25 20:08 1 STRIP Insulin Human Regular IQ4HR SC 06/29/25 20:00 07/16/25 12:00 3 UNITS Dextrose 50 ml UD PRN IV 06/29/25 17:30 Midazolam HCl 100 ml @ 1 mls/hr Q24H IV 06/29/25 18:00 07/15/25 21:01 3 MLS/HR Enoxaparin Sodium 100 mg Q12HR SC 06/30/25 10:00 Hold 07/16/25 09:06 100 MG Enteral Nutritional Formula 1,000 ml 45ML/HR GT 06/30/25 17:15 07/14/25 21:08 1,000 ML Acetaminophen 650 mg Q4HP PRN PO 07/01/25 17:00 07/03/25 00:43 650 MG Vancomycin HCl 0 ml @ 0 mls/hr PER PHARMACY IV 07/02/25 13:15 Meropenem 50 ml @ 17 mls/hr Q8HR IV 07/04/25 22:00 07/16/25 21:00 17 MLS/HR Insulin Glargine 12 units HS SC 07/06/25 22:00 07/16/25 21:04 12 UNITS Polyethylene Glycol 17 gm DAILY PO 07/08/25 10:00 07/16/25 09:03 17 GM Propofol 100 ml @ 3.225 mls/ hr Q24H IV 07/08/25 09:45 07/11/25 08:43 16.125 MLS/HR Vancomycin HCl 100 ml @ 100 mls/hr Q12H IV 07/10/25 23:00 07/16/25 10:54 100 MLS/HR Sennosides 8.6 mg HS PO 07/10/25 22:00 07/16/25 21:00 8.6 MG Digoxin 250 mcg DAILY IV 07/12/25 10:00 07/16/25 09:06 250 MCG Lactulose 30 ml DAILY PO 07/12/25 10:00 07/16/25 09:03 30 ML Empaglifozin 10 mg DAILY PO 07/14/25 10:00 07/16/25 09:05 10 MG Metoprolol Tartrate 12.5 mg BID PO 07/14/25 10:00 07/16/25 21:03 12.5 MG Sodium Chloride 10 ml QSHIFT@10,22 IV 07/14/25 22:00 07/16/25 21:11 10 ML Laboratory Results Laboratory Tests 07/16/25 03:10 Chemistry Test 07/16/25 03:10 Calcium Level 7.7 mg/dL (8.7-10.4) L Magnesium Level 2.3 mg/dL (1.6-2.6) Lipid panel Test 07/16/25 03:10 Lipase 45 U/L (12-53) Urinalysis Test 06/28/25 17:12 Urine Color Colorless (Yellow) Urine Clarity Clear (Clear) Urine pH 5.0 (5.0-9.0) Urine Specific [place] 1.005 (1.001-1.035) Urine Protein Negative (Negative) Urine Ketones Negative (Negative) Urine Blood Negative /uL (Negative) Urine Nitrite Negative (Negative) Urine Bilirubin Negative (Negative) Urine Urobilinogen Normal mg/dL (Negative) Urine Leukocyte Esterase Negative /uL (Negative) Urine RBC 1 /hpf (0 - 3) Urine Microscopic WBC < 1 /HPF (0-3) Urine Squamous Epithelial Cells None seen /hpf (<5) Urine Bacteria None seen /hpf (None Seen) Urine Glucose 2+ mg/dL (Normal) H Blood Gas Results Test 07/16/25 06:54 Arterial Blood pH 7.521 (7.350-7.450) FiO2 % 30.0 Microbiology Microbiology Date/Time Source Procedure Growth Status 07/11/25 14:17 Blood Blood Culture - Final NO GROWTH AFTER 5 DAYS OF INCUBATION. Complete 07/03/25 16:00 Sputum Gram Stain - Final Complete 07/03/25 16:00 Respiratory Culture - Final Pseudomonas aeruginosa Serratia marcescens Complete 07/01/25 22:35 Urine - Catheterized Urine Culture - Final Complete 06/29/25 04:30 Nose MRSA Screen - Final Complete Assessment/Plan Assessment/Plan Impression: Acute hypoxic respiratory failure On mechanical ventilator Acute metabolic encephalopathy Septic shock Aspiration pneumonia Non-ST elevation OK Paroxysmal atrial fibrillation w/ RVR History of CVA Acute kidney injury Obesity Events: Patient seen and examined in ICU. Remains off sedation Awake, alert. Currently on CPAP with PS 20, PEEP 5, FiO2 30% Continue with CPAP for exercise as tolerated. On Precedex drip. ABG reviewed, notable for alkalemia. CXR demonstrates Bilateral lung base infiltrates and effusions, [id number]-toxw-left, stable. Vent support On AC mode; RR 18, VT 400, PEEP 5, FiO2 30% Taper FIO2 as tolerated KUB reveals no small bowel obstruction. Off tube feeds due to high residuals. GI recs appreciated. Follow up GI/Nutrition recommendations AFib with RVR Pt underwent unsuccessful cardioversion, left heart catheterization Monitor BP due to hypotension - on metoprolol 12.5 mg BID. Hematuria has resolved, no bloody secretions from ET tube. Amiodarone is not to be given. Cardiology recommendations appreciated Continue anticoagulation Continue bronchodilators/Mucomyst Continue antibiotics. Sputum cx grew Pseudomonas aeruginosa and Serratia marcescens Monitor WBC No fevers. Wound care No BMs since 06/28/25 - on lactulose. Patient underwent left heart catheterization 07/06/25 with 3 stents placed in the LAD. Cardiology recs appreciated. Labs and imaging reviewed. Plan: s/p intubation on mechanical ventilator. On AC mode; RR 18, VT 400, PEEP 5, FiO2 30% Titrate FIO2 to keep O2 saturation above 90%. VAP bundle. Daily ABG and CXR while intubated Continue bronchodilators/Mucomyst Continue antibiotics. Follow up cultures. Pressors as necessary for hemodynamic support Titrate to keep mean arterial pressure greater than 65 mmHg. Accu-Cheks, ISS Monitor renal function Monitor electrolytes. Supplement as necessary. Monitor ins and outs. Maintain euvolemia. GI prophylaxis. DVT prophylaxis. Recommend diet and lifestyle modifications for weight reduction Obesity complicates all care Prognosis: Poor given patient's multiple co-morbidities. Condition: Critical Rest of plan per hospitalist and other consultants. A total of 35 minutes of critical care time was spent reviewing the patient record, examining the patient, making a diagnostic and therapeutic plan, discussing this plan with the medical personnel, following up on diagnostic studies and following the patient for clinical stability excluding any and all procedures. At least 50% of this time was spent in direct, [id number] contact. Thank you, , for allowing me to participate in this patient's care. Further recommendations will depend on the patient's clinical course. Please do not hesitate to contact me if you have any questions or concerns. This medical document was created using an electronic medical record system with [employer] system. Although these documentations are being carefully reviewed, there may still be some phonetic and typographical changes. The errors are purely typographical, due to imperfection on the software program, and do not reflect any compromise in the patient's medical care. Plan discussed with: Other (NAM Aguiar) My Orders Orders - ENRIQUE ODONNELL MD Procedure Category Date Status Time Cpap Trial For Am ORDERS 07/17/25 Transmitted 07:00 Visit Coding Pulmonary Billing Provider: ENRIQUE ODONNELL MD Date of Service if different f: Jul 16, 2025 Common Visit Codes: [id number] INP/OBS CARE(HIGH), [id number] CARE 30-74 MIN ENRIQUE ODONNELL MD Jul 16, 2025 23:14
[2025-07-16 23:24] LABS: Hemoglobin 8.4 g/dL (13.5-17.5)
[2025-07-16 23:26] LABS: Hematocrit 24.9 % (41.0-53.0)
[2025-07-17] VITALS (113 sets, daily range): BP systolic 64–166; BP diastolic 27–81; PULSE 57–153; RESP 14–41; TEMP 98.4–100.8; O2SAT 85–100
--- NOTE | 2025-07-17 01:52 | DVH ---
CHEST RADIOGRAPH Indication: on vent Technique: Single frontal view of the chest was obtained COMPARISON: XY CHEST XRAY 1 VIEW on DOS: 07/16/25, XY CHEST XRAY 1 VIEW on DOS: 07/15/25, XY CHEST PORTABLE on DOS: 07/14/25, XY CHEST XRAY 1 VIEW on DOS: 07/14/25, XY CHEST XRAY 1 VIEW on DOS: 07/13/25 FINDINGS: ET tube tip terminating 4.4 cm above the kolby. NG tube extending below the hemidiaphragm. Right-sided PICC line unchanged. Cardiac silhouette is enlarged. Small right-sided pleural effusion with [id number] atelectasis/ consolidation at the right lung base. Trace left-sided pleural effusion with dense left basilar atelectasis / consolidation. IMPRESSION: Stable findings.
[2025-07-17 02:57] LABS: Hemoglobin 7.8 g/dL (13.5-17.5)
[2025-07-17 02:58] LABS: Hematocrit 23.8 % (41.0-53.0); Mean Corpuscular Hemoglobin 27.3 pg (28.0-32.0); Mean Corpuscular Volume 83.7 fL (80.0-100.0); Nucleated Red Blood Cells % 0.0 %
[2025-07-17 03:10] LABS: Alanine Aminotransferase 10 U/L (7-40); Alkaline Phosphatase 91 U/L (46-116); Anion Gap 9 (5-15); BUN/Creatinine Ratio 36.1 (10.0-20.0); Carbon Dioxide 29 mmol/L (20-31); Potassium 4.2 mmol/L (3.5-5.1); Total Protein 5.8 g/dL (5.7-8.2)
[2025-07-17 03:16] LABS: Albumin 2.5 g/dL (3.2-4.8); Bilirubin, Total 1.3 mg/dL (0.2-1.0); Blood Urea Nitrogen 30 mg/dL (9-23); Calcium 7.6 mg/dL (8.7-10.4); Chloride 107 mmol/L (98-107); Glucose 153 mg/dL (74-106); Sodium 145 mmol/L (136-145)
[2025-07-17] MEDS: NOREPINEPHRINE 8 MG/250ML KIT 250 ML IV ONE (03:22)
[2025-07-17] MEDS: NOREPINEPHRINE 8 MG/250ML KIT 250 ML IV SCH (03:24)
[2025-07-17 06:25] LABS: Base Excess 4.3 mmol/L (-2.0-3.0)
--- NOTE | 2025-07-17 17:54 | DVHPNRES ---
Progress Note Date Seen: Jul 17, 2025 Resident Creating Document: CYNTHIA LOVE RESIDENT Medical Necessity Reason Pt with a Central, PICC or Fol: Yes The following are medically ne: Central Line, Lau Catheter Reason for lau catheter: Strict I&O Subjective Review of Systems Patient is a 74-year-old male with past medical history of hypertension, diabetes type 2, dyslipidemia, paroxysmal atrial fibrillation, CVA in 2019, presented to the ED with chief complaints of 3 days of palpitations, shortness of breath before his admission. On arrival to the ED patient was found to have atrial fibrillation with RVR and was started on a diltiazem drip to control his heart rate. Patient progressed to have cardiac arrest secondary to ventricular arrhythmias possibly ventricular tachycardia or torsades de Pointe. Patient required CPR and ACLS maneuvers for 8 minutes followed by endotracheal intubation, obtained by ROSC. Patient was initially on amiodarone drip which was later discontinued after magnesium was given for QT prolongation. Due to clinical status obtained history of present illness and past medical history from EMR and who is at bedside. Could not obtain review of systems. Cardiology consulted for elevated troponins. Past medical history: Hypertension, dyslipidemia, diabetes, paroxysmal atrial fibrillation diagnosed in 2017 (chads Vasc 7), 2019 CVA Past surgical history: Appendectomy Family history: Two brothers had heart disease requiring CABG at the age of 40 and 50 respectively, brother had lung cancer, mother had breast cancer Social history: with . Ex tobacco abuse (eight pack-year history of smoking) quit 30 years ago. Denies current tobacco, alcohol and other drug abuse Allergies: Denies Home medication: Pradaxa 150 mg p.o. daily, atorvastatin 40 mg p.o. daily, hydrochlorothiazide 12.5 mg p.o. daily, lisinopril 20 mg p.o. daily, glipizide, metformin a 1000 mg p.o. b.i.d., metoprolol (he quit taking for four months since it made him tired). 06/30/25: Patient seen and examined at bedside. Patient is currently sedated and on mechanically ventilation, with ventilator settings at tidal volume 500, FiO2 30%, peep at 5, off of pressors phenylephrine and norepinephrine. 07/01/2025: Patient seen and examined at bedside. Patient is currently sedated and mechanically ventilated. Patient today has fever and elevated WBC, blood culture ordered. Patient is on pressor Levophed 9, patient's HR 150- 160s, order was given of metoprolol IV 5 mg with partial control of the RVR, also digoxin loading dose given. Metoprolol 25 mg PO daily was also placed for tomorrow. 07/02/2025: Patient seen and examined in ICU. Hr is under controlled. Intubated. temperature 99.3 started cefepime and vancomycin. blood culture G + bacteria. 07/03/2025 :Patient seen and examined in the ICU. Patient heart rate is under control, patient is intubated, mechanically ventilated, temperature 100.6. continue cefepime, vancomycin. Repeat blood cultures were ordered.(Staph coagulase negative, could be contaminate). Planning on performing LHC on Thursday07/05/2025, have informed . 07/04/2025: Patient seen and examined in ICU. Patient is mechanically intubated, patient had a fever yesterday night but decreased. Sputum culture showed Gram-negative rods. Discontinued cefepime. Started meropenem, 12.5 metoprolol b.i.d. Repeat blood cultures are negative. Planning on performing LHC on Thursday07/05/2025, have informed . 07/05/25: Patient seen and examined in ICU. Patient is mechanically intubated, patient had Bradycardia overnight for wich metoprlol was held. LHC was done today with 3 stents placed in the LAD. Possible RHC to be done. 07/06/2025: patient seen and examined in ICU. Patient is mechanically ventilated, had a left heart catheterization done yesterday with 3 stents placed in the LAD, Planning to do next procedure in one week to RCA. 07/07/2025: patient seen and examined in ICU. Patient is mechanically ventilated, had a left heart catheterization done yesterday with 3 stents placed in the LAD, CPAP trial done today, failed, we will try again tomorrow. 07/08/2025:patient seen and examined in ICU . on ventilator. CPAP trial failed, become tachypneic. we will try again. 07/09/2025: Patient seen and examined in ICU, on ventilator, overnight patient had AFib with RVR, so CPAP trial was deferred for today. We will try again tomorrow. discontinue metoprolol, patient's last bowel movement was on the so lactulose was given. Patient's WBC is 17.1. Cardiology following. Patient is to have a heart catheterization on Thursday. 07/10/2025: Patient seen and examined in ICU. on ventilator, no overnight events were noted. No CPAP trial until procedure on Thursday. Patient's last bowel movement was on the , senna was added, patient started on digoxin. 07/11/2025: Patient seen in examined in the ICU. patient is still on ventilator, on minimal ventilator settings, tidal volume was changed to 400. Patient has not had a bowel movement since , but abdomen soft. Patient is on fentanyl 175, propofol 24. chest ultrasound showed trace pleural effusion on the right side. Patient is to have heart catheterization tomorrow. 07/12/2025: Patient seen and examined in the ICU. patient is still on ventilator, on minimal ventilator settings, tidal volume was changed to 400. Patient underwent CALVIN, and is to undergo left heart cath today. : Patient seen and examined in ICU. Patient is still on ventilator, mineral ventilator setting, underwent left heart catheterization yesterday which was unsuccessful, cardioversion which was unsuccessful, today added metoprolol 25 mg p.o. b.i.d., PICC line to be placed, 1 pack of RBC was given. Today patient had bloody secretion from the ET tube, hematuria. Consult cardio if amiodarone can be given. 07/14/2025: Patient seen and examined in the ICU. Patient on ventilator, minimal ventilator setting, unsuccessful cardioversion, left heart catheterization, yesterday night patient's blood pressure dropped and metoprolol was changed to 12.5 mg. Hematuria has resolved, no bloody secretions from ET tube. Amnio is not to be given. 07/15/2025: Patient seen and examined in ICU. Continue pain ventilator. Trying to be off sedation. CPAP trial today. No any other new complaints 07/16/2025: Patient seen and examined in ICU. CPAP trial today. Off sedation, pressors. Lasix 20 mg was given. CPAP trial today failed, we will try again tomorrow. Patient had big bruise on right side, ordered h and h, and abdominal CT, if bleeding present hold Lovenox but not aspirin. 07/17/2025: Patient patient seen in the ICU. CPAP trial tomorrow. Patient off pressors, patient had a fever, is on Precedex 0.4. Patient today is opening his eyes, following commands, CT abdomen showed left greater than right rectus abdominis hematoma. One PRBC was given today. Held Lovenox. Objective vital signs Vital Sign Date Time Temp Pulse Resp B/P (MAP) Pulse Ox O2 Delivery O2 Flow Rate FiO2 07/17/25 17:30 100.2 108 37 141/59 100.2 07/17/25 16:46 93 07/17/25 16:00 Mechanical Ventilator+ 30 30 Total Intake and Output 07/16/25 07/16/25 07/17/25 15:00 23:00 07:00 Intake Total 187.244 ml 313.367 ml 553.885 ml Output Total 1150 ml 550 ml Balance 187.244 ml -836.633 ml 3.885 ml medications Current Medications Medications Dose Ordered Sig/Jesse Route Start Time Stop Time Status Last Admin Dose Admin Atorvastatin Calcium 40 mg HS PO 06/29/25 22:00 07/16/25 21:00 40 MG Fentanyl Citrate 250 ml @ 2.5 mls/hr Q24H IV 06/29/25 06:15 07/17/25 00:19 10 MLS/HR Aspirin 81 mg DAILY PO 06/30/25 10:00 07/17/25 10:11 81 MG Insulin Human Regular HS SC 06/29/25 22:00 Cancel Insulin Human Regular AC SC 06/29/25 17:00 Cancel Pantoprazole Sodium 40 mg DAILY IV 06/30/25 10:00 07/17/25 10:10 40 MG Clopidogrel Bisulfate 75 mg DAILY PO 06/30/25 10:00 07/17/25 10:11 75 MG Diagnostic Test (Pha) 1 strip IQ4HR 06/29/25 20:00 07/17/25 16:18 1 STRIP Insulin Human Regular IQ4HR SC 06/29/25 20:00 07/16/25 12:00 3 UNITS Dextrose 50 ml UD PRN IV 06/29/25 17:30 Midazolam HCl 100 ml @ 1 mls/hr Q24H IV 06/29/25 18:00 07/15/25 21:01 3 MLS/HR Enoxaparin Sodium 100 mg Q12HR SC 06/30/25 10:00 Hold 07/16/25 09:06 100 MG Enteral Nutritional Formula 1,000 ml 45ML/HR GT 06/30/25 17:15 07/14/25 21:08 1,000 ML Acetaminophen 650 mg Q4HP PRN PO 07/01/25 17:00 07/17/25 12:17 650 MG Vancomycin HCl 0 ml @ 0 mls/hr PER PHARMACY IV 07/02/25 13:15 Meropenem 50 ml @ 17 mls/hr Q8HR IV 07/04/25 22:00 07/17/25 13:54 17 MLS/HR Insulin Glargine 12 units HS SC 07/06/25 22:00 07/16/25 21:04 12 UNITS Polyethylene Glycol 17 gm DAILY PO 07/08/25 10:00 07/16/25 09:03 17 GM Propofol 100 ml @ 3.225 mls/ hr Q24H IV 07/08/25 09:45 07/11/25 08:43 16.125 MLS/HR Vancomycin HCl 100 ml @ 100 mls/hr Q12H IV 07/10/25 23:00 07/16/25 23:21 100 MLS/HR Sennosides 8.6 mg HS PO 07/10/25 22:00 07/16/25 21:00 8.6 MG Digoxin 250 mcg DAILY IV 07/12/25 10:00 07/17/25 10:11 250 MCG Lactulose 30 ml DAILY PO 07/12/25 10:00 07/16/25 09:03 30 ML Empaglifozin 10 mg DAILY PO 07/14/25 10:00 07/17/25 10:11 10 MG Metoprolol Tartrate 12.5 mg BID PO 07/14/25 10:00 07/17/25 10:12 12.5 MG Sodium Chloride 10 ml QSHIFT@10,22 IV 07/14/25 22:00 07/17/25 10:11 10 ML Norepinephrine Bitartrate 250 ml @ 3.75 mls/hr Q24H IV 07/17/25 03:15 07/17/25 03:24 3.75 MLS/HR Examination General: intubated, sedated HEENT: Normocephalic, atraumatic, moist mucous membranes Respiratory/pulmonary: Clear lungs bilaterally, vesicular murmurs present in almost all lung roberts, no associated crackles or wheezes. Cardiovascular: Normal heart sounds S1 and S2 with no associated murmurs Abdomen: Abdomen nondistended, there is no pain to palpation in any of the abdominal quadrants, no palpable masses. Right flank bruise Extremities: There is no peripheral edema present at the lower extremities. Bilateral erythematous and ulcerated lesions. Skin: No rashes or pruritus, there is no sacral edema present at this time laboratory and microbiology Laboratory Tests 07/17/25 02:45 Test 07/17/25 02:45 Range/Units Serum Glucose 153 H 74-106 mg/dL Microbiology Date/Time Source Procedure Growth Status 07/11/25 14:17 Blood Blood Culture - Final NO GROWTH AFTER 5 DAYS OF INCUBATION. Complete 07/03/25 16:00 Sputum Gram Stain - Final Complete 07/03/25 16:00 Respiratory Culture - Final Pseudomonas aeruginosa Serratia marcescens Complete 07/01/25 22:35 Urine - Catheterized Urine Culture - Final Complete 06/29/25 04:30 Nose MRSA Screen - Final Complete Problem List/Assessment/Plan Problem List/Assessment/Plan Neurology Acute metabolic encephalopathy History of CVA-with residual aphasia, right-sided deficit -Sedation/neurological status: Rass score -3 - off of Levophed, phenylephrine Cardiology Cardiac arrest secondary to ventricular arrhythmia (ventricular tachycardia, torsade de pointes) NSTEMI type 1 status post PCI Newly diagnosed coronary artery disease - triple-vessel disease Prolonged QT Paroxysmal atrial fibrillation with RVR Hypertension Dyslipidemia - EKG showed atrial fibrillation with anterior T-wave inversions, prolonged QT - coronary angiography showed severe triple-vessel disease with acutely occluded circumflex status post PCI with 1 drug-eluting stent placed. -ventriculogram showed LVEF of 15% - ordered echocardiography, lvef 20%, moderate LV enlargement, severe end stage HF - avoid QT prolongation medications - Dany Vasc score 7 -currently on vasopressors Levophed, phenylephrine -severe CAD in LAD and RCA, plan to do angiography on Thursday -patient given aspirin, atorvastatin, clopidogrel - ordered 12.5 metoprolol tartrate b.i.d. - C done (07/05) with 3 stents placed in LAD. - Planning on new stage procedure to RCA on Thursday. Repeat echocardiogram. - digoxin 250 mcg added, - metoprolol 25 mg p.o. b.i.d. added Respiratory Acute hypoxic respiratory failure likely due to cardiac arrest Possible Aspiration Pneumonia -ventilator settings: VT 500, respiratory rate 17, FiO2 30 %, PEEP 5 -chest x-ray: Similar bilateral inferior graded opacities, likely a combination of airspace disease and pleural effusion. Genitourinary/kidney Acute kidney injury likely due to be VMN -medication: Given Lasix 20 mg once -strict I&Os -nephrotoxic drugs Endocrine Uncontrolled diabetes mellitus, HbA1c 10.6 - on insulin sliding scale Infectious Septic shock due to Aspiration pneumonia -urine culture preliminary negative -blood cultures ordered, as WBC elevated and fever present -blood culture showed positive staph coagulase negative. - repeat blood cultures negative - Respiratory culture (07/03) - Pseudomonas aeruginosa - IV vancomycin, meropenem started(07/04) - repeat blood cultures (07/12) were negative Transaminitis - monitor labs Obesity BMI 33.0 Lines / Tubes / Devices Airway: Intubated via ETT on 06/29 Vascular Access: Central line 06/29 Drips: Fentanyl, midazolam, norepinephrine, phenylephrine, Versed Prophylaxis / Supportive Care DVT Prophylaxis: Lovenox. GI Prophylaxis: Protonix. Goals of care discussed with the patient family for more than 29 minutes: Full code state Patient care updated to ([place]), addressed all concerns. Critical care time spent excluding procedures 83 minutes Plan discussed with Dr. Waters and RN Plan discussed with: Spouse My Orders My Orders Orders - CYNTHIA LOVE RESIDENT Procedure Category Date Status Time * Surgical Consult CONS 07/17/25 Transmitted Consult CONS 07/17/25 Transmitted Vascular/Endovascular 11:11 Dietary Evaluation Review Comments: 1. Protein needs based on 1.2-1.5g/protein/kg IBW d/t low GFR 2. While being intubated, offer TF Vital HP @45ml/hr, in 24 hr, Pt will receive 94g protein, 1080lkcal 903ml free water, meeting pts needs at 97% protein and 100% energy. 3. Consider TPN to meet pt's needs if Pt does not tolerate TF well. 4. Reassess when pt extubated, advance to CCHO-60 PO diet after passing a [employer] evluation. Expected Outcomes/Goals: off intubation, advance to CCHO-60 Cardiac diet, gradual wt loss Date of Service: Jul 17, 2025 Billing Provider: YOBANY AGUIRRE MD Common Visit Codes: 88347-MSDCODAI CARE 30-74 MIN, 58356-GBLMOIQC CARE-EACH +30MIN CYNTHIA LOVE RESIDENT Jul 17, 2025 17:54 YOBANY AGUIRRE MD Jul 18, 2025 15:08
[2025-07-17] MEDS: VANCOMYCIN 1GM/250ML KIT 250 ML IV SCH (18:50)
[2025-07-18] VITALS (106 sets, daily range): BP systolic 68–165; BP diastolic 31–92; PULSE 54–175; RESP 12–34; TEMP 98.5–100.4; O2SAT 88–100
[2025-07-18 03:21] LABS: Hematocrit 26.6 % (41.0-53.0); Hemoglobin 8.9 g/dL (13.5-17.5); Mean Corpuscular Hemoglobin 28.6 pg (28.0-32.0); Mean Corpuscular Volume 86.0 fL (80.0-100.0)
[2025-07-18 03:32] LABS: Alanine Aminotransferase 13 U/L (7-40); Alkaline Phosphatase 95 U/L (46-116); Anion Gap 13 (5-15); BUN/Creatinine Ratio 38.6 (10.0-20.0); Carbon Dioxide 26 mmol/L (20-31); Magnesium 2.4 mg/dL (1.6-2.6); Potassium 4.5 mmol/L (3.5-5.1)
[2025-07-18 03:33] LABS: Albumin 2.3 g/dL (3.2-4.8); Bilirubin, Total 1.8 mg/dL (0.2-1.0); Blood Urea Nitrogen 39 mg/dL (9-23); Calcium 7.6 mg/dL (8.7-10.4); Chloride 109 mmol/L (98-107); Glucose 154 mg/dL (74-106); Sodium 148 mmol/L (136-145); Total Protein 5.6 g/dL (5.7-8.2)
--- NOTE | 2025-07-18 04:41 | DVH ---
CHEST RADIOGRAPH Indication: on vent Technique: Single frontal view of the chest was obtained COMPARISON: XY CHEST XRAY 1 VIEW on DOS: 07/17/25, XY CHEST XRAY 1 VIEW on DOS: 07/16/25, XY CHEST XRAY 1 VIEW on DOS: 07/15/25, XY CHEST PORTABLE on DOS: 07/14/25, XY CHEST XRAY 1 VIEW on DOS: 07/14/25 FINDINGS: Tracheostomy tube tip terminating 3.8 cm above the kolby. Right-sided PICC line with tip near the cavoatrial junction. NG tube in the centered in the stomach, tip extending beyond the field of view. Stable mild enlargement of the cardiac silhouette. Stable small bilateral pleural effusions with associated atelectasis/ consolidation at both lung bases. No pneumothorax or other adverse interval change. IMPRESSION: Stable findings.
[2025-07-18 04:54] LABS: Total Cells Counted 100.0 (100)
--- NOTE | 2025-07-18 06:53 | DVHCONRES ---
Date Seen: Jul 18, 2025 Resident Creating Document: ANTHONY DRAKE Jr., MD Referring Physician casa Reason for Consultation right rectus hematoma History of Present Illness 74-year-old male presents for evaluation of palpitations. Patient endorses a two day history of palpitations with associated chest pressure and shortness for breath. On arrival patient was noted to be in AFib with RVR in the 150s. Patient has had multiple cardiac interventions over the last 2 weeks. All of them via the radial artery. He developed a hematoma ecchymosis on the right flank cat scan demonstrated a rectus sheath hematoma. Past Medical History Dyslipidemia, hypertension, AFib, diabetes mellitus, CVA with right-sided deficits Past Surgical History Appendectomy cholecystectomy Social History Smoker Allergies: Coded Allergies: NO KNOWN ALLERGIES (Unverified , 06/28/25) Current Medications Current Medications Medications (Trade) Dose Ordered Sig/Jesse Route PRN Reason Start Time Stop Time Status Last Admin Vancomycin HCl 250 ml @ 250 mls/hr DAILY@1900 IV 07/17/25 19:00 07/17/25 18:50 Review of Systems Chart reviewed all systems reviewed. Vital Signs Vital Signs Date Time Temp Pulse Resp B/P (MAP) Pulse Ox O2 Delivery O2 Flow Rate FiO2 07/18/25 06:26 150 34 123/40 (67) 98 30 07/18/25 06:00 Mechanical Ventilator+ 07/18/25 06:00 99.9 211.8 Physical Exam Patient's intubation. Lungs decreased breath sounds at bases. Heart is tachycardic abdomen soft he has ecchymosis in the right flank which is receding. Mild tenderness in that area. Lower extremities palpable femoral weakly palpable pedal pulses bilaterally. Labs/Diagnostic Data Labs Test 07/18/25 02:50 07/17/25 23:49 07/17/25 17:23 07/17/25 10:13 Range/Units White Blood Count 5.3 # 4.4-10.8 10^3/uL Red Blood Count 3.10 L 4.5-5.90 10^6/uL Hemoglobin 8.9 L 13.5-17.5 g/dL Hematocrit 26.6 #L 41.0-53.0 % Mean Corpuscular Volume 86.0 80.0-100.0 fL Mean Corpuscular Hemoglobin 28.6 28.0-32.0 pg Mean Corpuscular Hemoglobin Concent 33.3 32.0-36.0 g/dL Red Cell Distribution Width 15.8 H 11.8-14.3 % Platelet Count 506 H 140-450 10^3/uL Mean Platelet Volume 7.6 6.9-10.8 fL Neutrophils (%) (Auto) 37.0-80.0 % Lymphocytes (%) (Auto) 10.0-50.0 % Monocytes (%) (Auto) 0.0-12.0 % Basophils (%) (Auto) 0.0-2.0 % Neutrophils # (Auto) 1.6-8.6 10 ^3/uL Lymphocytes # (Auto) 0.4-5.4 10 ^3/uL Monocytes # (Auto) 0-1.3 10 ^3/uL Differential Total Cells Counted 100.0 100 Neutrophils % (Manual) 66 37.0-80.0 Band Neutrophils % (Manual) 0 Lymphocytes % (Manual) 13 10.0-50.0 Monocytes % (Manual) 21 H 0-12 Eosinophils % (Manual) 0 0-7 Basophils % (Manual) 0 0.0-2.0 Metamyelocytes % (manual) 0 Myelocytes % (Manual) 0 Promyelocytes % (Manual) 0 Blast Cells % (Manual) 0 Reactive Lymphocytes 0 Platelet Estimate Increased Sodium Level 148 H 136-145 mmol/L Potassium Level 4.5 3.5-5.1 mmol/L Chloride Level 109 H 98-107 mmol/L Carbon Dioxide Level 26 20-31 mmol/L Anion Gap 13 5-15 Blood Urea Nitrogen 39 H 9-23 mg/dL Creatinine 1.01 0.700-1.30 mg/dL Glomerular Filtration Rate Calc 79 >90 mL/min BUN/Creatinine Ratio 38.6 H 10.0-20.0 Serum Glucose 154 H 74-106 mg/dL Calcium Level 7.6 L 8.7-10.4 mg/dL Magnesium Level 2.4 1.6-2.6 mg/dL Total Bilirubin 1.8 H 0.2-1.0 mg/dL Aspartate Amino Transferase (AST) 25 13-40 U/L Alanine Aminotransferase (ALT) 13 7-40 U/L Alkaline Phosphatase 95 46-116 U/L Total Protein 5.6 L 5.7-8.2 g/dL Albumin 2.3 L 3.2-4.8 g/dL POC Glucose 154 H 70-106 mg/dl Random Vancomycin Level 11.3 H 5-10 ug/mL Vancomycin Level Trough 22.4 H 5-10 ug/mL Test 07/17/25 06:21 07/17/25 02:45 07/16/25 03:10 07/15/25 02:42 Range/Units Blood Gas Specimen Type Arterial Blood Gas Sample Site Left radial Blood Gas Patient Temperature 37.0 Arterial Blood Date Drawn [id number] Arterial Blood pH 7.508 H 7.350-7.450 Arterial Blood Partial Pressure CO2 35.2 35.0-48.0 mmHg Arterial Blood Partial Pressure O2 76.3 L 83.0-108.0 mmHg Arterial Blood HCO3 27.3 21.0-28.0 mmol/L Arterial Blood Oxygen Saturation 94.8 94.0-98.0 % Arterial Blood Base Excess 4.3 H -2.0-3.0 mmol/L Arterial Blood Oxyhemoglobin 93.5 L 94.0-98.0 % Arterial Blood Carboxyhemoglobin 0.9 0.5-1.5 % Arterial Blood Methemoglobin 0.5 0.0-1.5 % Ryan Test Modified Blood Gas Total Hemoglobin 11.40 L 13.5-17.5 g/dL Blood Gas Set Respiration Rate 18.0 Blood Gas Modality Vent - ac FiO2 % 30.0 Blood Gas Tidal Volume 400.0 Blood Gas PEEP or CPAP 5.0 Eosinophils (%) (Auto) 0.1 0.0-7.0 % Eosinophils # (Auto) 0 0-0.8 10 ^3/uL Basophils # (Auto) 0 0-0.2 10 ^3/uL Nucleated Red Blood Cells 0.0 % Lipase 45 12-53 U/L Triglycerides Level 112 < 150 mg/dL Cholesterol Level 98 < 200 mg/dL LDL Cholesterol 56 < 100 mg/dL HDL Cholesterol 25 L 40-59 mg/dL Test 07/14/25 06:38 07/14/25 02:50 07/13/25 16:58 07/13/25 03:00 Range/Units Blood Gas Spontaneous Rate 18 Digoxin Level 0.64 L 0.8-2 ng/mL Prothrombin Time 11.2 9.3-11.8 sec Prothrombin Time INR 1.06 0.9-1.15 Activated Partial Thromboplast Time 23.4 L 24.5-34.5 SEC Phosphorus Level 3.4 2.4-5.1 mg/dL Test 07/11/25 07:35 07/01/25 18:15 06/30/25 17:01 06/29/25 11:32 Range/Units Blood Gas Critical Value Read Back Yes Blood Gas Notified Whom Md. amos landis Blood Gas Notified Time [id number] Blood Gas Notified By Rt jesika john Lactic Acid Level 1.6 0.4-2.0 mmol/L Urine Opiates Screen Neg NEGATIVE Urine Fentanyl Screen Pos NEGATIVE Urine Barbiturates Screen Neg NEGATIVE Urine Phencyclidine Screen Neg NEGATIVE Urine Amphetamines Screen Neg NEGATIVE Urine Benzodiazepines Screen Pos NEGATIVE Urine Cocaine Screen Neg NEGATIVE Urine Cannabinoids Screen Neg NEGATIVE Vitamin B12 Level 390 211-911 pg/mL Vitamin D 25-Hydroxy 24.8 L 30.0-100 ng/mL Test 06/29/25 06:11 06/29/25 00:12 06/28/25 17:14 06/28/25 17:12 Range/Units Red Blood Cell Morphology Normal Hemoglobin A1c 10.6 H <5.7 % A1C Troponin I High Sensitivity 955 *H </=54 ng/L Thyroid Stimulating Hormone (TSH) 1.43 0.55-4.78 uIU/mL Urine Color Colorless Yellow Urine Clarity Clear Clear Urine pH 5.0 5.0-9.0 Urine Specific [place] 1.005 1.001-1.035 Urine Protein Negative Negative Urine Ketones Negative Negative Urine Blood Negative Negative /uL Urine Nitrite Negative Negative Urine Bilirubin Negative Negative Urine Urobilinogen Normal Negative mg/dL Urine Leukocyte Esterase Negative Negative /uL Urine RBC 1 0 - 3 /hpf Urine Microscopic WBC < 1 0-3 /HPF Urine Squamous Epithelial Cells None seen <5 /hpf Urine Bacteria None seen None Seen /hpf Urine Glucose 2+ H Normal mg/dL Test 06/28/25 13:30 Range/Units B-Type Natriuretic Peptide 302.02 0-100 pg/mL Microbiology Date/Time Source Procedure Growth Status 07/11/25 14:17 Blood Blood Culture - Final NO GROWTH AFTER 5 DAYS OF INCUBATION. Complete 07/03/25 16:00 Sputum Gram Stain - Final Complete 07/03/25 16:00 Respiratory Culture - Final Pseudomonas aeruginosa Serratia marcescens Complete 07/01/25 22:35 Urine - Catheterized Urine Culture - Final Complete 06/29/25 04:30 Nose MRSA Screen - Final Complete EXAM: CT CT AB PEL WO CON-NO ORAL OR IV INDICATION: R/O hematoma or fluid collection on right flank TECHNIQUE: Volumetric multidetector CT images of the abdomen and pelvis were obtained without contrast. All CT scans at this facility use dose modulation, iterative reconstruction, and/or weight based dosing when appropriate to reduce radiation dose to as low as reasonably achievable. COMPARISON: None FINDINGS: [LOWER CHEST]: Small to medium right sided pleural effusion. Partial collapse of bilateral lower lobes. Coronary artery calcifications. trace pericardial effusion. [LIVER]: Normal hepatic size without suspicious focal lesion. [GALLBLADDER AND BILIARY TREE]: Presumed vicarious excretion of contrast within the gallbladder [SPLEEN]: Unremarkable. [PANCREAS]: Unremarkable. [ADRENAL GLANDS]: Unremarkable [KIDNEYS]: No hydronephrosis. No nephroureterolithiasis. Streak artifact crossing the abdomen and therefore attenuation of the kidneys can not be accurately assessed however possible retention of areas of contrast/enhancement of the kidneys suggestive of medical renal disease /injury [BLADDER]: Decompressed [REPRODUCTIVE ORGANS]: Unremarkable. [BOWEL/MESENTERY]: Decompressed with nasogastric tube. [id number] stool burden. Air-fluid level throughout the ascending to transverse colon without dilation rectal temperature probe. Minimal sigmoid diverticulosis [ASCITES]: Absent [LYMPHADENOPATHY]: No pathologically enlarged lymph nodes by CT size criteria [VASCULATURE]: No aneurysmal dilatation. [ABDOMINAL WALL]: Significant [id number]-right rectus abdominis muscle hematomas. Left side demonstrates fluid fluid level compatible with varying stages of blood productsr left-sided measures 7.7 x 9 cm. Right-sided measures 4.3 x 7.8 cm. [MUSCULOSKELETAL]: No acute fracture or aggressive focal osseous lesion. Multifocal degenerative change of the visualized spine. IMPRESSION: 1. Significant [id number]-right rectus abdominis muscle hematomas. Left side demonstrates fluid fluid level compatible with varying stages of blood productsr left-sided measures 7.7 x 9 cm. Right-sided measures 4.3 x 7.8 cm. Assessment A rectus sheath hematoma most likely secondary to Lovenox subcu injections. Blood pressure well controlled normalize clotting factors Recommends no further injections switch over to IV heparin versus antiplatelet therapy as per Cardiology No need for any surgical intervention at this point in time. Plan/Recommendation A rectus sheath hematoma most likely secondary to Lovenox subcu injections. Blood pressure well controlled normalize clotting factors Recommends no further injections switch over to IV heparin versus antiplatelet therapy as per Cardiology No need for any surgical intervention at this point in time. Plan discussed with: Other (rn bedside) ANTHONY DRAKE Jr., MD Jul 18, 2025 06:53
[2025-07-18 07:32] LABS: Base Excess -0.2 mmol/L (-2.0-3.0)
--- NOTE | 2025-07-18 08:45 | DVH ---
US CHEST ULTRASOUND, HISTORY: PLEURAL EFFUSION COMPARISON(S): XY CHEST XRAY 1 VIEW on DOS: 07/18/25, XY CHEST XRAY 1 VIEW on DOS: 07/17/25, XY CHEST XRAY 1 VIEW on DOS: 07/16/25 TECHNICAL DATA: Transverse and longitudinal images are obtained of the chest. FINDING: IMPRESSION(S): No left pleural effusion. Trace right pleural effusion.
[2025-07-18 12:50] LABS: Base Excess -1.0 mmol/L (-2.0-3.0)
--- NOTE | 2025-07-18 13:30 | ECG ---
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
--- NOTE | 2025-07-18 16:35 | DVHPNRES ---
Progress Note Date Seen: Jul 18, 2025 Resident Creating Document: CYNTHIA LOVE RESIDENT Medical Necessity Reason Pt with a Central, PICC or Fol: Yes The following are medically ne: Central Line, Lau Catheter Reason for lau catheter: Strict I&O Subjective Review of Systems Patient is a 74-year-old male with past medical history of hypertension, diabetes type 2, dyslipidemia, paroxysmal atrial fibrillation, CVA in 2019, presented to the ED with chief complaints of 3 days of palpitations, shortness of breath before his admission. On arrival to the ED patient was found to have atrial fibrillation with RVR and was started on a diltiazem drip to control his heart rate. Patient progressed to have cardiac arrest secondary to ventricular arrhythmias possibly ventricular tachycardia or torsades de Pointe. Patient required CPR and ACLS maneuvers for 8 minutes followed by endotracheal intubation, obtained by ROSC. Patient was initially on amiodarone drip which was later discontinued after magnesium was given for QT prolongation. Due to clinical status obtained history of present illness and past medical history from EMR and who is at bedside. Could not obtain review of systems. Cardiology consulted for elevated troponins. Past medical history: Hypertension, dyslipidemia, diabetes, paroxysmal atrial fibrillation diagnosed in 2017 (chads Vasc 7), 2019 CVA Past surgical history: Appendectomy Family history: Two brothers had heart disease requiring CABG at the age of 40 and 50 respectively, brother had lung cancer, mother had breast cancer Social history: with . Ex tobacco abuse (eight pack-year history of smoking) quit 30 years ago. Denies current tobacco, alcohol and other drug abuse Allergies: Denies Home medication: Pradaxa 150 mg p.o. daily, atorvastatin 40 mg p.o. daily, hydrochlorothiazide 12.5 mg p.o. daily, lisinopril 20 mg p.o. daily, glipizide, metformin a 1000 mg p.o. b.i.d., metoprolol (he quit taking for four months since it made him tired). 06/30/25: Patient seen and examined at bedside. Patient is currently sedated and on mechanically ventilation, with ventilator settings at tidal volume 500, FiO2 30%, peep at 5, off of pressors phenylephrine and norepinephrine. 07/01/2025: Patient seen and examined at bedside. Patient is currently sedated and mechanically ventilated. Patient today has fever and elevated WBC, blood culture ordered. Patient is on pressor Levophed 9, patient's HR 150- 160s, order was given of metoprolol IV 5 mg with partial control of the RVR, also digoxin loading dose given. Metoprolol 25 mg PO daily was also placed for tomorrow. 07/02/2025: Patient seen and examined in ICU. Hr is under controlled. Intubated. temperature 99.3 started cefepime and vancomycin. blood culture G + bacteria. 07/03/2025 :Patient seen and examined in the ICU. Patient heart rate is under control, patient is intubated, mechanically ventilated, temperature 100.6. continue cefepime, vancomycin. Repeat blood cultures were ordered.(Staph coagulase negative, could be contaminate). Planning on performing LHC on Thursday07/05/2025, have informed . 07/04/2025: Patient seen and examined in ICU. Patient is mechanically intubated, patient had a fever yesterday night but decreased. Sputum culture showed Gram-negative rods. Discontinued cefepime. Started meropenem, 12.5 metoprolol b.i.d. Repeat blood cultures are negative. Planning on performing LHC on Thursday07/05/2025, have informed . 07/05/25: Patient seen and examined in ICU. Patient is mechanically intubated, patient had Bradycardia overnight for wich metoprlol was held. LHC was done today with 3 stents placed in the LAD. Possible RHC to be done. 07/06/2025: patient seen and examined in ICU. Patient is mechanically ventilated, had a left heart catheterization done yesterday with 3 stents placed in the LAD, Planning to do next procedure in one week to RCA. 07/07/2025: patient seen and examined in ICU. Patient is mechanically ventilated, had a left heart catheterization done yesterday with 3 stents placed in the LAD, CPAP trial done today, failed, we will try again tomorrow. 07/08/2025:patient seen and examined in ICU . on ventilator. CPAP trial failed, become tachypneic. we will try again. 07/09/2025: Patient seen and examined in ICU, on ventilator, overnight patient had AFib with RVR, so CPAP trial was deferred for today. We will try again tomorrow. discontinue metoprolol, patient's last bowel movement was on the so lactulose was given. Patient's WBC is 17.1. Cardiology following. Patient is to have a heart catheterization on Thursday. 07/10/2025: Patient seen and examined in ICU. on ventilator, no overnight events were noted. No CPAP trial until procedure on Thursday. Patient's last bowel movement was on the , senna was added, patient started on digoxin. 07/11/2025: Patient seen in examined in the ICU. patient is still on ventilator, on minimal ventilator settings, tidal volume was changed to 400. Patient has not had a bowel movement since , but abdomen soft. Patient is on fentanyl 175, propofol 24. chest ultrasound showed trace pleural effusion on the right side. Patient is to have heart catheterization tomorrow. 07/12/2025: Patient seen and examined in the ICU. patient is still on ventilator, on minimal ventilator settings, tidal volume was changed to 400. Patient underwent CALVIN, and is to undergo left heart cath today. : Patient seen and examined in ICU. Patient is still on ventilator, mineral ventilator setting, underwent left heart catheterization yesterday which was unsuccessful, cardioversion which was unsuccessful, today added metoprolol 25 mg p.o. b.i.d., PICC line to be placed, 1 pack of RBC was given. Today patient had bloody secretion from the ET tube, hematuria. Consult cardio if amiodarone can be given. 07/14/2025: Patient seen and examined in the ICU. Patient on ventilator, minimal ventilator setting, unsuccessful cardioversion, left heart catheterization, yesterday night patient's blood pressure dropped and metoprolol was changed to 12.5 mg. Hematuria has resolved, no bloody secretions from ET tube. Amnio is not to be given. 07/15/2025: Patient seen and examined in ICU. Continue pain ventilator. Trying to be off sedation. CPAP trial today. No any other new complaints 07/16/2025: Patient seen and examined in ICU. CPAP trial today. Off sedation, pressors. Lasix 20 mg was given. CPAP trial today failed, we will try again tomorrow. Patient had big bruise on right side, ordered h and h, and abdominal CT, if bleeding present hold Lovenox but not aspirin. 07/17/2025: Patient patient seen in the ICU. CPAP trial tomorrow. Patient off pressors, patient had a fever, is on Precedex 0.4. Patient today is opening his eyes, following commands, CT abdomen showed left greater than right rectus abdominis hematoma. One PRBC was given today. Held Lovenox. 07/18/25: Patient seen in ICU. CPAP trial done today failed we will try again tomorrow. Patient is off pressors, on Precedex 0.4. Patient is opening his eyes, following commands, monitor hemoglobin. Held Lovenox. Metoprolol was changed to 25 b.i.d. Objective vital signs Vital Sign Date Time Temp Pulse Resp B/P (MAP) Pulse Ox O2 Delivery O2 Flow Rate FiO2 07/18/25 16:11 100 26 109/48 (68) 99 30 07/18/25 14:00 Mechanical Ventilator+ 07/18/25 12:00 98.7 98.7 Total Intake and Output 07/17/25 07/17/25 07/18/25 15:00 23:00 07:00 Intake Total 148.927 ml 665.221 ml 366.090 ml Output Total 500 ml 575 ml Balance 148.927 ml 165.221 ml -208.910 ml medications Current Medications Medications Dose Ordered Sig/Jesse Route Start Time Stop Time Status Last Admin Dose Admin Atorvastatin Calcium 40 mg HS PO 06/29/25 22:00 07/17/25 20:57 40 MG Fentanyl Citrate 250 ml @ 2.5 mls/hr Q24H IV 06/29/25 06:15 07/18/25 04:02 15 MLS/HR Aspirin 81 mg DAILY PO 06/30/25 10:00 07/18/25 10:27 81 MG Insulin Human Regular HS SC 06/29/25 22:00 Cancel Insulin Human Regular AC SC 06/29/25 17:00 Cancel Pantoprazole Sodium 40 mg DAILY IV 06/30/25 10:00 07/18/25 10:26 40 MG Clopidogrel Bisulfate 75 mg DAILY PO 06/30/25 10:00 07/18/25 10:28 75 MG Diagnostic Test (Pha) 1 strip IQ4HR 06/29/25 20:00 07/18/25 15:58 1 STRIP Insulin Human Regular IQ4HR SC 06/29/25 20:00 07/17/25 20:56 2 UNITS Dextrose 50 ml UD PRN IV 06/29/25 17:30 Midazolam HCl 100 ml @ 1 mls/hr Q24H IV 06/29/25 18:00 07/15/25 21:01 3 MLS/HR Enoxaparin Sodium 100 mg Q12HR SC 06/30/25 10:00 Hold 07/16/25 09:06 100 MG Enteral Nutritional Formula 1,000 ml 45ML/HR GT 06/30/25 17:15 07/14/25 21:08 1,000 ML Acetaminophen 650 mg Q4HP PRN PO 07/01/25 17:00 07/17/25 23:56 650 MG Vancomycin HCl 0 ml @ 0 mls/hr PER PHARMACY IV 07/02/25 13:15 Meropenem 50 ml @ 17 mls/hr Q8HR IV 07/04/25 22:00 07/18/25 13:55 17 MLS/HR Insulin Glargine 12 units HS SC 07/06/25 22:00 07/16/25 21:04 12 UNITS Polyethylene Glycol 17 gm DAILY PO 07/08/25 10:00 07/16/25 09:03 17 GM Propofol 100 ml @ 3.225 mls/ hr Q24H IV 07/08/25 09:45 07/11/25 08:43 16.125 MLS/HR Sennosides 8.6 mg HS PO 07/10/25 22:00 07/17/25 20:57 8.6 MG Digoxin 250 mcg DAILY IV 07/12/25 10:00 07/18/25 10:26 250 MCG Lactulose 30 ml DAILY PO 07/12/25 10:00 07/16/25 09:03 30 ML Empaglifozin 10 mg DAILY PO 07/14/25 10:00 07/18/25 10:27 10 MG Sodium Chloride 10 ml QSHIFT@10,22 IV 07/14/25 22:00 07/18/25 10:27 10 ML Norepinephrine Bitartrate 250 ml @ 3.75 mls/hr Q24H IV 07/17/25 03:15 07/17/25 03:24 3.75 MLS/HR Vancomycin HCl 250 ml @ 250 mls/hr DAILY@1900 IV 07/17/25 19:00 07/17/25 18:50 250 MLS/HR Metoprolol Tartrate 25 mg BID PO 07/18/25 22:00 Examination General: intubated, sedated HEENT: Normocephalic, atraumatic, moist mucous membranes Respiratory/pulmonary: Clear lungs bilaterally, vesicular murmurs present in almost all lung roberts, no associated crackles or wheezes. Cardiovascular: Normal heart sounds S1 and S2 with no associated murmurs Abdomen: Abdomen nondistended, there is no pain to palpation in any of the abdominal quadrants, no palpable masses. Right flank bruise Extremities: There is no peripheral edema present at the lower extremities. Bilateral erythematous and ulcerated lesions. Skin: No rashes or pruritus, there is no sacral edema present at this time laboratory and microbiology Laboratory Tests 07/18/25 02:50 Test 07/18/25 02:50 Range/Units Serum Glucose 154 H 74-106 mg/dL Microbiology Date/Time Source Procedure Growth Status 07/11/25 14:17 Blood Blood Culture - Final NO GROWTH AFTER 5 DAYS OF INCUBATION. Complete 07/03/25 16:00 Sputum Gram Stain - Final Complete 07/03/25 16:00 Respiratory Culture - Final Pseudomonas aeruginosa Serratia marcescens Complete 07/01/25 22:35 Urine - Catheterized Urine Culture - Final Complete 06/29/25 04:30 Nose MRSA Screen - Final Complete Problem List/Assessment/Plan Problem List/Assessment/Plan Neurology Acute metabolic encephalopathy History of CVA-with residual aphasia, right-sided deficit -Sedation/neurological status: Rass score -3 - off of Levophed, phenylephrine Cardiology Cardiac arrest secondary to ventricular arrhythmia (ventricular tachycardia, torsade de pointes) NSTEMI type 1 status post PCI Newly diagnosed coronary artery disease - triple-vessel disease Prolonged QT Paroxysmal atrial fibrillation with RVR Hypertension Dyslipidemia - EKG showed atrial fibrillation with anterior T-wave inversions, prolonged QT - coronary angiography showed severe triple-vessel disease with acutely occluded circumflex status post PCI with 1 drug-eluting stent placed. -ventriculogram showed LVEF of 15% - ordered echocardiography, lvef 20%, moderate LV enlargement, severe end stage HF - avoid QT prolongation medications - Dany Vasc score 7 -currently on vasopressors Levophed, phenylephrine -severe CAD in LAD and RCA, plan to do angiography on Thursday -patient given aspirin, atorvastatin, clopidogrel - ordered 12.5 metoprolol tartrate b.i.d. - LHC done (07/05) with 3 stents placed in LAD. - Planning on new stage procedure to RCA on Thursday. Repeat echocardiogram. -failed cardioversion, left heart catheterization. - digoxin 250 mcg added, - metoprolol 25 mg p.o. b.i.d. added Respiratory Acute hypoxic respiratory failure likely due to cardiac arrest Possible Aspiration Pneumonia -ventilator settings: VT 500, respiratory rate 17, FiO2 30 %, PEEP 5 -chest x-ray: Similar bilateral inferior graded opacities, likely a combination of airspace disease and pleural effusion. Genitourinary/kidney Acute kidney injury likely due to be VMN -medication: Given Lasix 20 mg once -strict I&Os -nephrotoxic drugs Endocrine Uncontrolled diabetes mellitus, HbA1c 10.6 - on insulin sliding scale Infectious Septic shock due to Aspiration pneumonia -urine culture preliminary negative -blood cultures ordered, as WBC elevated and fever present -blood culture showed positive staph coagulase negative. - repeat blood cultures negative - Respiratory culture (07/03) - Pseudomonas aeruginosa - IV vancomycin, meropenem started(07/04) - repeat blood cultures (07/12) were negative Transaminitis - monitor labs Obesity BMI 33.0 Lines / Tubes / Devices Airway: Intubated via ETT on 06/29 Vascular Access: Central line 06/29 Drips: Fentanyl, midazolam, norepinephrine, phenylephrine, Versed Prophylaxis / Supportive Care DVT Prophylaxis: Lovenox. GI Prophylaxis: Protonix. Goals of care discussed with the patient family for more than 29 minutes: Full code state Patient care updated to (Myrna), addressed all concerns. Critical care time spent excluding procedures 82 minutes Plan discussed with Dr. Waters and RN Plan discussed with: Spouse My Orders My Orders Orders - CYNTHIA LOVE RESIDENT Procedure Category Date Status Time Chest Xray 1 View XY 07/18/25 Resulted 04:00 Abg W/ Co-Ox RT 07/18/25 Logged 07:30 Abg W/ Co-Ox RT 07/18/25 Logged 11:00 Dietary Evaluation Review Comments: 1. Protein needs based on 1.2-1.5g/protein/kg IBW d/t low GFR 2. While being intubated, offer TF Vital HP @45ml/hr, in 24 hr, Pt will receive 94g protein, 1080lkcal 903ml free water, meeting pts needs at 97% protein and 100% energy. 3. Consider TPN to meet pt's needs if Pt does not tolerate TF well. 4. Reassess when pt extubated, advance to CCHO-60 PO diet after passing a SITE ADMINISTRATOR evluation. Expected Outcomes/Goals: off intubation, advance to CCHO-60 Cardiac diet, gradual wt loss Date of Service: Jul 18, 2025 Billing Provider: YOBANY AGUIRRE MD Common Visit Codes: 74144-[id number] CARE 30-74 MIN, [id number] CARE-EACH +30MIN CYNTHIA LOVE Jul 18, 2025 16:35 YOBANY AGUIRRE MD Jul 19, 2025 15:23
[2025-07-18] MEDS: METOPROLOL TARTRATE 25 MG TAB PO SCH (21:51)
[2025-07-19] VITALS (102 sets, daily range): BP systolic 11–167; BP diastolic 34–80; PULSE 57–155; RESP 11–34; TEMP 96.3–99.9; O2SAT 89–100
[2025-07-19 03:26] LABS: Hemoglobin 8.2 g/dL (13.5-17.5)
[2025-07-19 03:29] LABS: Hematocrit 24.8 % (41.0-53.0); Mean Corpuscular Hemoglobin 28.6 pg (28.0-32.0); Mean Corpuscular Volume 86.2 fL (80.0-100.0)
[2025-07-19 03:43] LABS: Alanine Aminotransferase 13 U/L (7-40); Alkaline Phosphatase 92 U/L (46-116); Anion Gap 17 (5-15); BUN/Creatinine Ratio 41.9 (10.0-20.0); Carbon Dioxide 25 mmol/L (20-31); Magnesium 2.4 mg/dL (1.6-2.6); Potassium 4.9 mmol/L (3.5-5.1); Total Protein 5.7 g/dL (5.7-8.2)
[2025-07-19 03:45] LABS: Albumin 2.4 g/dL (3.2-4.8); Bilirubin, Total 1.5 mg/dL (0.2-1.0); Blood Urea Nitrogen 39 mg/dL (9-23); Calcium 7.8 mg/dL (8.7-10.4); Chloride 110 mmol/L (98-107); Glucose 152 mg/dL (74-106); Sodium 152 mmol/L (136-145)
[2025-07-19 04:35] LABS: Total Cells Counted 100.0 (100)
--- NOTE | 2025-07-19 05:05 | DVH ---
CHEST RADIOGRAPH Indication: on vent Technique: Single frontal view of the chest was obtained Comparison: US CHEST ULTRASOUND on DOS: 07/18/25 FINDINGS: Lines and Tubes: The endotracheal tube terminates 3.8 cm above the kolby. The enteric tube courses below the left hemidiaphragm and the tip extends outside the field of view. There is a right PICC with its tip terminating in the superior vena cava. Lungs: Bilateral lower lobe opacities. Pleura: Bilateral pleural effusions. No pneumothorax. Cardiomediastinal contours: Stable cardiomegaly. Bones: No acute osseous abnormality. IMPRESSION: 1. Bilateral lower lobe opacities and bilateral pleural effusions similar to prior study. 2. Cardiomegaly.
--- NOTE | 2025-07-19 09:30 | ECG ---
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
[2025-07-19 09:40] LABS: Base Excess -2.6 mmol/L (-2.0-3.0)
--- NOTE | 2025-07-19 09:45 | ECG ---
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
[2025-07-19] MEDS: D5W 5% 1,000 ML IV SCH (11:22)
[2025-07-19] MEDS: METOPROLOL TARTRATE 25 MG TAB PO ONE (12:41)
--- NOTE | 2025-07-19 15:41 | DVHPN2 ---
Consult Progress Note Date Seen: Jul 19, 2025 Subjective Other Systems: Notified of tachy-sergio events Objective vital signs Vital Sign Date Time Temp Pulse Resp B/P (MAP) Pulse Ox O2 Delivery O2 Flow Rate FiO2 07/19/25 13:45 88 14 132/51 (78) 100 07/19/25 13:28 30 07/19/25 12:30 96.3 96.3 07/19/25 12:00 Mechanical Ventilator+ Total Intake and Output 07/18/25 07/18/25 07/19/25 15:00 23:00 07:00 Intake Total 111.471 ml 735.952 ml 333.190 ml Output Total 700 ml 750 ml Balance 111.471 ml 35.952 ml -416.810 ml medications Current Medications Medications Dose Ordered Sig/Jesse Route Start Time Stop Time Status Last Admin Dose Admin Atorvastatin Calcium 40 mg HS PO 06/29/25 22:00 07/18/25 21:51 40 MG Fentanyl Citrate 250 ml @ 2.5 mls/hr Q24H IV 06/29/25 06:15 07/19/25 05:50 10 MLS/HR Aspirin 81 mg DAILY PO 06/30/25 10:00 07/19/25 09:40 81 MG Insulin Human Regular HS SC 06/29/25 22:00 Cancel Insulin Human Regular AC SC 06/29/25 17:00 Cancel Pantoprazole Sodium 40 mg DAILY IV 06/30/25 10:00 07/19/25 09:39 40 MG Clopidogrel Bisulfate 75 mg DAILY PO 06/30/25 10:00 07/19/25 09:40 75 MG Diagnostic Test (Pha) 1 strip IQ4HR 06/29/25 20:00 07/19/25 11:38 1 STRIP Insulin Human Regular IQ4HR SC 06/29/25 20:00 07/19/25 11:42 3 UNITS Dextrose 50 ml UD PRN IV 06/29/25 17:30 Midazolam HCl 100 ml @ 1 mls/hr Q24H IV 06/29/25 18:00 07/19/25 09:24 1 MLS/HR Enoxaparin Sodium 100 mg Q12HR SC 06/30/25 10:00 Hold 07/16/25 09:06 100 MG Enteral Nutritional Formula 1,000 ml 45ML/HR GT 06/30/25 17:15 07/18/25 19:46 1,000 ML Acetaminophen 650 mg Q4HP PRN PO 07/01/25 17:00 07/17/25 23:56 650 MG Vancomycin HCl 0 ml @ 0 mls/hr PER PHARMACY IV 07/02/25 13:15 Meropenem 50 ml @ 17 mls/hr Q8HR IV 07/04/25 22:00 07/19/25 14:56 17 MLS/HR Insulin Glargine 12 units HS SC 07/06/25 22:00 07/16/25 21:04 12 UNITS Polyethylene Glycol 17 gm DAILY PO 07/08/25 10:00 07/16/25 09:03 17 GM Propofol 100 ml @ 3.225 mls/ hr Q24H IV 07/08/25 09:45 07/11/25 08:43 16.125 MLS/HR Sennosides 8.6 mg HS PO 07/10/25 22:00 07/17/25 20:57 8.6 MG Digoxin 250 mcg DAILY IV 07/12/25 10:00 07/19/25 09:39 250 MCG Lactulose 30 ml DAILY PO 07/12/25 10:00 07/16/25 09:03 30 ML Empaglifozin 10 mg DAILY PO 07/14/25 10:00 07/19/25 09:40 10 MG Sodium Chloride 10 ml QSHIFT@10,22 IV 07/14/25 22:00 07/19/25 09:39 10 ML Norepinephrine Bitartrate 250 ml @ 3.75 mls/hr Q24H IV 07/17/25 03:15 07/17/25 03:24 3.75 MLS/HR Vancomycin HCl 250 ml @ 250 mls/hr DAILY@1900 IV 07/17/25 19:00 07/18/25 19:07 250 MLS/HR Dextrose 1,000 ml @ 50 mls/hr Q20H IV 07/19/25 10:30 07/19/25 11:22 50 MLS/HR Metoprolol Tartrate 12.5 mg BID PO 07/19/25 22:00 Examination: GENERAL:Abnormal, LUNGS:Abnormal (Endotracheally intubated with 30% FiO2), CVS:Normal (A-fib controlled rate), NEURO:Abnormal laboratory and microbiology Laboratory Tests 11/12/25 02:55 Test 07/19/25 02:55 Range/Units Serum Glucose 152 H 74-106 mg/dL Problem List/Assessment/Plan Problem List/Assessment/Plan Cardiac arrest secondary to ventricular arrhythmia (ventricular tachycardia and torsades de Pointe) - status post ROSC NSTEMI type 1 - status post PCI with 4 STANLEY to circumflex and 3 STANLEY to LAD Newly diagnosed coronary artery disease - triple-vessel disease De Sarabjit Decompensated HFrEF, NYHA Class IV Paroxysmal atrial fibrillation with RVR ([id number] Score 7) - secondary hypercoagulability state Prolonged QTc, resolved Metabolic acidosis with elevated anion gap secondary to hyperlacticacidemia KEANU hemodynamically mediated (VMN) 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 Mtz) Patient presented with cardiac arrest with requirement of ACLS maneuver for 8 minutes with endotracheal intubation EKG shows atrial fibrillation with anterior T-wave inversions, prolonged QT (longest was 580 milliseconds) Completed coronary angiography which showed severe triple-vessel disease with acutely occluded circumflex currently status post PCI with 4 STANLEY and staged procedure to LAD with 3 STANLEY placed. He was attempted stage procedure of the mid-RCA which was unsuccessful Revascularized culprit vessel. Completed stage procedure to LAD on 07/05/2025. Unsuccessful staged mid-RCA on 07/12/2025 (can be completed in this center or in [place]). Echocardiogram: LVEF 20%, moderate LV enlargement, severe end stage HF, RV dysfunction, moderate MAC, mild MR and TR, moderate pulmonary HTN Initially was on heparin drip, now on therapeutic enoxaparin for A-fib. Attempted DCCV which was unsuccessful on 07/12/2025 Currently on mechanical assisted ventilation with 30% FiO2 Rest of management per primary team (on IV antibiotics) Plan: Case discussed with Dr. Mtz. Patient currently ICU status due to mechanical assisted ventilation and off vasopressors. Completed initial coronary angiography on 06/29/2025 which showed triple-vessel disease with acute circumflex occlusion status post PCI with 4 STANLEY placed, staged procedure to LAD with 3 STANLEY on 07/05/2025 and unsuccessful staged procedure of the mid-RCA on 07/12/2025. Attempted unsuccessful DCCV on 07/12/2025. Recommendations are to continue therapeutic Lovenox and transition to DOAC therapy when appropriate, continue dual-antiplatelet therapy (Plavix and ASA) and stop ASA on 08/05/2025 with continuation of DOAC and Plavix for the remaining. Initiate full GDMT for HFrEF when able to tolerate, in the meantime only SGLT2i. Optimize electrolytes, avoid QT prolonging medication. We will consider revascularization of mid-RCA once patient is awake and extubated which could also be completed at [facility] given high risk for complications and surgical backup. Given atrial fibrillation with tachy-sergio events, the patient has been scheduled for a micra leadless pacemaker implantation with Dr. Mtz on 07/19/2025. All risks and benefits of the procedure were discussed in full detail with at bedside. All questions answered. Patient has a very poor prognosis. Goals of care discussed with : Full code status. Critical care time spent including discussion with nursing and family, excluding procedures: 30 minutes. Plan discussed with: Spouse, Other Dietary Evaluation Review Comments: 1. Protein needs based on 1.2-1.5g/protein/kg IBW d/t low GFR 2. While being intubated, offer TF Vital HP @45ml/hr, in 24 hr, Pt will receive 94g protein, 1080lkcal 903ml free water, meeting pts needs at 97% protein and 100% energy. 3. Consider TPN to meet pt's needs if Pt does not tolerate TF well. 4. Reassess when pt extubated, advance to CCHO-60 PO diet after passing a CHIEF STEWARD/STEWARDESS evluation. Expected Outcomes/Goals: off intubation, advance to CCHO-60 Cardiac diet, gradual wt loss Date of Service: Jul 19, 2025 Billing Provider: ELMO NICHOLAS Cardiology Common Codes: [id number] CARE 30-74 MIN ELMO NICHOLAS Jul 19, 2025 15:41
[2025-07-19] MEDS: IODIXANOL 320MG/ML 100ML BTL IV ONE (16:19)
[2025-07-19] MEDS: HEPARIN IN NS 1000Units/500mL 1,500 ML ONE (16:19)
[2025-07-19] MEDS: LIDOCAINE 2%HCL (LOCAL ANESTH.) INJ 20ML MDV ONE (16:23)
--- NOTE | 2025-07-19 17:11 | DVHPNRES ---
Progress Note Date Seen: Jul 19, 2025 Resident Creating Document: CYNTHIA LOVE RESIDENT Medical Necessity Reason Pt with a Central, PICC or Fol: Yes The following are medically ne: Central Line, Lau Catheter Reason for lau catheter: Strict I&O Subjective Review of Systems Patient is a 74-year-old male with past medical history of hypertension, diabetes type 2, dyslipidemia, paroxysmal atrial fibrillation, CVA in 2019, presented to the ED with chief complaints of 3 days of palpitations, shortness of breath before his admission. On arrival to the ED patient was found to have atrial fibrillation with RVR and was started on a diltiazem drip to control his heart rate. Patient progressed to have cardiac arrest secondary to ventricular arrhythmias possibly ventricular tachycardia or torsades de Pointe. Patient required CPR and ACLS maneuvers for 8 minutes followed by endotracheal intubation, obtained by ROSC. Patient was initially on amiodarone drip which was later discontinued after magnesium was given for QT prolongation. Due to clinical status obtained history of present illness and past medical history from EMR and who is at bedside. Could not obtain review of systems. Cardiology consulted for elevated troponins. Past medical history: Hypertension, dyslipidemia, diabetes, paroxysmal atrial fibrillation diagnosed in 2017 (chads Vasc 7), 2019 CVA Past surgical history: Appendectomy Family history: Two brothers had heart disease requiring CABG at the age of 40 and 50 respectively, brother had lung cancer, mother had breast cancer Social history: with . Ex tobacco abuse (eight pack-year history of smoking) quit 30 years ago. Denies current tobacco, alcohol and other drug abuse Allergies: Denies Home medication: Pradaxa 150 mg p.o. daily, atorvastatin 40 mg p.o. daily, hydrochlorothiazide 12.5 mg p.o. daily, lisinopril 20 mg p.o. daily, glipizide, metformin a 1000 mg p.o. b.i.d., metoprolol (he quit taking for four months since it made him tired). 06/30/25: Patient seen and examined at bedside. Patient is currently sedated and on mechanically ventilation, with ventilator settings at tidal volume 500, FiO2 30%, peep at 5, off of pressors phenylephrine and norepinephrine. 07/01/2025: Patient seen and examined at bedside. Patient is currently sedated and mechanically ventilated. Patient today has fever and elevated WBC, blood culture ordered. Patient is on pressor Levophed 9, patient's HR 150- 160s, order was given of metoprolol IV 5 mg with partial control of the RVR, also digoxin loading dose given. Metoprolol 25 mg PO daily was also placed for tomorrow. 07/02/2025: Patient seen and examined in ICU. Hr is under controlled. Intubated. temperature 99.3 started cefepime and vancomycin. blood culture G + bacteria. 07/03/2025 :Patient seen and examined in the ICU. Patient heart rate is under control, patient is intubated, mechanically ventilated, temperature 100.6. continue cefepime, vancomycin. Repeat blood cultures were ordered.(Staph coagulase negative, could be contaminate). Planning on performing LHC on Thursday07/05/2025, have informed . 07/04/2025: Patient seen and examined in ICU. Patient is mechanically intubated, patient had a fever yesterday night but decreased. Sputum culture showed Gram-negative rods. Discontinued cefepime. Started meropenem, 12.5 metoprolol b.i.d. Repeat blood cultures are negative. Planning on performing LHC on Thursday07/05/2025, have informed . 07/05/25: Patient seen and examined in ICU. Patient is mechanically intubated, patient had Bradycardia overnight for wich metoprlol was held. LHC was done today with 3 stents placed in the LAD. Possible RHC to be done. 07/06/2025: patient seen and examined in ICU. Patient is mechanically ventilated, had a left heart catheterization done yesterday with 3 stents placed in the LAD, Planning to do next procedure in one week to RCA. 07/07/2025: patient seen and examined in ICU. Patient is mechanically ventilated, had a left heart catheterization done yesterday with 3 stents placed in the LAD, CPAP trial done today, failed, we will try again tomorrow. 07/08/2025:patient seen and examined in ICU . on ventilator. CPAP trial failed, become tachypneic. we will try again. 07/09/2025: Patient seen and examined in ICU, on ventilator, overnight patient had AFib with RVR, so CPAP trial was deferred for today. We will try again tomorrow. discontinue metoprolol, patient's last bowel movement was on the so lactulose was given. Patient's WBC is 17.1. Cardiology following. Patient is to have a heart catheterization on Thursday. 07/10/2025: Patient seen and examined in ICU. on ventilator, no overnight events were noted. No CPAP trial until procedure on Thursday. Patient's last bowel movement was on the , senna was added, patient started on digoxin. 07/11/2025: Patient seen in examined in the ICU. patient is still on ventilator, on minimal ventilator settings, tidal volume was changed to 400. Patient has not had a bowel movement since , but abdomen soft. Patient is on fentanyl 175, propofol 24. chest ultrasound showed trace pleural effusion on the right side. Patient is to have heart catheterization tomorrow. 07/12/2025: Patient seen and examined in the ICU. patient is still on ventilator, on minimal ventilator settings, tidal volume was changed to 400. Patient underwent CALVIN, and is to undergo left heart cath today. : Patient seen and examined in ICU. Patient is still on ventilator, mineral ventilator setting, underwent left heart catheterization yesterday which was unsuccessful, cardioversion which was unsuccessful, today added metoprolol 25 mg p.o. b.i.d., PICC line to be placed, 1 pack of RBC was given. Today patient had bloody secretion from the ET tube, hematuria. Consult cardio if amiodarone can be given. 07/14/2025: Patient seen and examined in the ICU. Patient on ventilator, minimal ventilator setting, unsuccessful cardioversion, left heart catheterization, yesterday night patient's blood pressure dropped and metoprolol was changed to 12.5 mg. Hematuria has resolved, no bloody secretions from ET tube. Amnio is not to be given. 07/15/2025: Patient seen and examined in ICU. Continue pain ventilator. Trying to be off sedation. CPAP trial today. No any other new complaints 07/16/2025: Patient seen and examined in ICU. CPAP trial today. Off sedation, pressors. Lasix 20 mg was given. CPAP trial today failed, we will try again tomorrow. Patient had big bruise on right side, ordered h and h, and abdominal CT, if bleeding present hold Lovenox but not aspirin. 07/17/2025: Patient patient seen in the ICU. CPAP trial tomorrow. Patient off pressors, patient had a fever, is on Precedex 0.4. Patient today is opening his eyes, following commands, CT abdomen showed left greater than right rectus abdominis hematoma. One PRBC was given today. Held Lovenox. 07/18/25: Patient seen in ICU. CPAP trial done today failed we will try again tomorrow. Patient is off pressors, on Precedex 0.4. Patient is opening his eyes, following commands, monitor hemoglobin. Held Lovenox. Metoprolol was changed to 25 b.i.d. 07/19/25: Patient seen in ICU. CPAP trial done today and fell. Patient had a episode of bradycardia to 35 overnight. Patient has tachy sergio syndrome. Cardiology recommended pacemaker. IV meropenem was changed to IV Zosyn Q 8. Repeat sputum culture was ordered. Objective vital signs Vital Sign Date Time Temp Pulse Resp B/P (MAP) Pulse Ox O2 Delivery O2 Flow Rate FiO2 07/19/25 16:00 30 07/19/25 16:00 16 98 Mechanical Ventilator+ 07/19/25 15:31 99 147/54 (85) 07/19/25 12:30 96.3 96.3 Total Intake and Output 07/18/25 07/18/25 07/19/25 15:00 23:00 07:00 Intake Total 111.471 ml 735.952 ml 333.190 ml Output Total 700 ml 750 ml Balance 111.471 ml 35.952 ml -416.810 ml medications Current Medications Medications Dose Ordered Sig/Jesse Route Start Time Stop Time Status Last Admin Dose Admin Atorvastatin Calcium 40 mg HS PO 06/29/25 22:00 07/18/25 21:51 40 MG Fentanyl Citrate 250 ml @ 2.5 mls/hr Q24H IV 06/29/25 06:15 07/19/25 16:36 22.5 MLS/HR Aspirin 81 mg DAILY PO 06/30/25 10:00 07/19/25 09:40 81 MG Insulin Human Regular HS SC 06/29/25 22:00 Cancel Insulin Human Regular AC SC 06/29/25 17:00 Cancel Pantoprazole Sodium 40 mg DAILY IV 06/30/25 10:00 07/19/25 09:39 40 MG Clopidogrel Bisulfate 75 mg DAILY PO 06/30/25 10:00 07/19/25 09:40 75 MG Diagnostic Test (Pha) 1 strip IQ4HR 06/29/25 20:00 07/19/25 15:50 1 STRIP Insulin Human Regular IQ4HR SC 06/29/25 20:00 07/19/25 11:42 3 UNITS Dextrose 50 ml UD PRN IV 06/29/25 17:30 Midazolam HCl 100 ml @ 1 mls/hr Q24H IV 06/29/25 18:00 07/19/25 09:24 1 MLS/HR Enoxaparin Sodium 100 mg Q12HR SC 06/30/25 10:00 Hold 07/16/25 09:06 100 MG Enteral Nutritional Formula 1,000 ml 45ML/HR GT 06/30/25 17:15 07/18/25 19:46 1,000 ML Acetaminophen 650 mg Q4HP PRN PO 07/01/25 17:00 07/17/25 23:56 650 MG Vancomycin HCl 0 ml @ 0 mls/hr PER PHARMACY IV 07/02/25 13:15 Insulin Glargine 12 units HS SC 07/06/25 22:00 07/16/25 21:04 12 UNITS Polyethylene Glycol 17 gm DAILY PO 07/08/25 10:00 07/16/25 09:03 17 GM Propofol 100 ml @ 3.225 mls/ hr Q24H IV 07/08/25 09:45 07/19/25 10:01 3.225 MLS/HR Sennosides 8.6 mg HS PO 07/10/25 22:00 07/17/25 20:57 8.6 MG Digoxin 250 mcg DAILY IV 07/12/25 10:00 07/19/25 09:39 250 MCG Lactulose 30 ml DAILY PO 07/12/25 10:00 07/16/25 09:03 30 ML Empaglifozin 10 mg DAILY PO 07/14/25 10:00 07/19/25 09:40 10 MG Sodium Chloride 10 ml QSHIFT@10,22 IV 07/14/25 22:00 07/19/25 09:39 10 ML Norepinephrine Bitartrate 250 ml @ 3.75 mls/hr Q24H IV 07/17/25 03:15 07/17/25 03:24 3.75 MLS/HR Vancomycin HCl 250 ml @ 250 mls/hr DAILY@1900 IV 07/17/25 19:00 07/18/25 19:07 250 MLS/HR Dextrose 1,000 ml @ 50 mls/hr Q20H IV 07/19/25 10:30 07/19/25 11:22 50 MLS/HR Metoprolol Tartrate 12.5 mg BID PO 07/19/25 22:00 Piperacillin Sod/ Tazobactam Sod 100 ml @ 25 mls/hr Q8HR IV 07/19/25 22:00 UNV Examination General: intubated, sedated HEENT: Normocephalic, atraumatic, moist mucous membranes Respiratory/pulmonary: Clear lungs bilaterally, vesicular murmurs present in almost all lung roberts, no associated crackles or wheezes. Cardiovascular: Normal heart sounds S1 and S2 with no associated murmurs Abdomen: Abdomen nondistended, there is no pain to palpation in any of the abdominal quadrants, no palpable masses. Right flank bruise Extremities: There is no peripheral edema present at the lower extremities. Bilateral erythematous and ulcerated lesions. Skin: No rashes or pruritus, there is no sacral edema present at this time laboratory and microbiology Laboratory Tests 07/19/25 02:55 Test 07/19/25 02:55 Range/Units Serum Glucose 152 H 74-106 mg/dL Microbiology Date/Time Source Procedure Growth Status 07/11/25 14:17 Blood Blood Culture - Final NO GROWTH AFTER 5 DAYS OF INCUBATION. Complete 07/03/25 16:00 Sputum Gram Stain - Final Complete 07/03/25 16:00 Respiratory Culture - Final Pseudomonas aeruginosa Serratia marcescens Complete 07/01/25 22:35 Urine - Catheterized Urine Culture - Final Complete 06/29/25 04:30 Nose MRSA Screen - Final Complete Problem List/Assessment/Plan Problem List/Assessment/Plan Neurology Acute metabolic encephalopathy History of CVA-with residual aphasia, right-sided deficit -Sedation/neurological status: Rass score -3 - off of Levophed, phenylephrine Cardiology Cardiac arrest secondary to ventricular arrhythmia (ventricular tachycardia, torsade de pointes) NSTEMI type 1 status post PCI Newly diagnosed coronary artery disease - triple-vessel disease Prolonged QT Paroxysmal atrial fibrillation with RVR Hypertension Dyslipidemia - EKG showed atrial fibrillation with anterior T-wave inversions, prolonged QT - coronary angiography showed severe triple-vessel disease with acutely occluded circumflex status post PCI with 1 drug-eluting stent placed. -ventriculogram showed LVEF of 15% - ordered echocardiography, lvef 20%, moderate LV enlargement, severe end stage HF - avoid QT prolongation medications - Dany Vasc score 7 -currently on vasopressors Levophed, phenylephrine -severe CAD in LAD and RCA, plan to do angiography on Thursday -patient given aspirin, atorvastatin, clopidogrel - ordered 12.5 metoprolol tartrate b.i.d. - C done (07/05) with 3 stents placed in LAD. - Planning on new stage procedure to RCA on Thursday. Repeat echocardiogram. -failed cardioversion, left heart catheterization. - digoxin 250 mcg added, - metoprolol 12.5 mg p.o. b.i.d. added - 07/19-repeat sputum culture ordered Respiratory Acute hypoxic respiratory failure likely due to cardiac arrest Possible Aspiration Pneumonia -ventilator settings: VT 500, respiratory rate 17, FiO2 30 %, PEEP 5 -chest x-ray: Similar bilateral inferior graded opacities, likely a combination of airspace disease and pleural effusion. Genitourinary/kidney Acute kidney injury likely due to be VMN -medication: Given Lasix 20 mg once -strict I&Os -nephrotoxic drugs Endocrine Uncontrolled diabetes mellitus, HbA1c 10.6 - on insulin sliding scale Infectious Septic shock due to Aspiration pneumonia -urine culture preliminary negative -blood cultures ordered, as WBC elevated and fever present -blood culture showed positive staph coagulase negative. - repeat blood cultures negative - Respiratory culture (07/03) - Pseudomonas aeruginosa - IV vancomycin, meropenem started(07/04), (07/19) IV meropenem was changed to IV Zosyn Q 8. - repeat blood cultures (07/12) were negative Transaminitis - monitor labs Obesity BMI 33.0 Lines / Tubes / Devices Airway: Intubated via ETT on 06/29 Vascular Access: Central line 06/29 Drips: Fentanyl, midazolam, norepinephrine, phenylephrine, Versed Prophylaxis / Supportive Care DVT Prophylaxis: Lovenox. GI Prophylaxis: Protonix. Goals of care discussed with the patient family for more than 29 minutes: Full code state Patient care updated to (Myrna), addressed all concerns. Critical care time spent excluding procedures 82 minutes Plan discussed with Dr. Norohna and RN Plan discussed with: Spouse My Orders My Orders Orders - CYNTHIA LOVE Procedure Category Date Status Time Abg W/ Co-Ox RT 07/19/25 Logged 06:34 Metoprolol Tartrate PHA 07/19/25 In Process Tablet (Lopressor Ta 22:00 Respiratory Culture JONNY 07/19/25 Logged W/ Gs 16:48 Piperacillin-Tazob PHA 07/19/25 Logged 3.375gm (Zosyn 3.375g 22:00 Complete Blood Count LAB 07/20/25 Verified 04:00 Comprehensive LAB 07/20/25 Verified Metabolic Panel 04:00 Chest Xray 1 View XY 07/20/25 Logged 04:00 Abg W/ Co-Ox RT 07/20/25 Logged 04:00 Magnesium LAB 07/20/25 Verified 04:00 Dietary Evaluation Review Comments: 1. Protein needs based on 1.2-1.5g/protein/kg IBW d/t low GFR 2. While being intubated, offer TF Vital HP @45ml/hr, in 24 hr, Pt will receive 94g protein, 1080lkcal 903ml free water, meeting pts needs at 97% protein and 100% energy. 3. Consider TPN to meet pt's needs if Pt does not tolerate TF well. 4. Reassess when pt extubated, advance to CCHO-60 PO diet after passing a M1 [employer] evluation. Expected Outcomes/Goals: off intubation, advance to CCHO-60 Cardiac diet, gradual wt loss Date of Service: Jul 19, 2025 Billing Provider: YOBANY AGUIRRE MD Common Visit Codes: 75135-GOLHQIDZ CARE 30-74 MIN, 31285-ZCUAACVT CARE-EACH +30MIN CYNTHIA LOVE Jul 19, 2025 17:11 YOBANY AGUIRRE MD Jul 20, 2025 12:45
[2025-07-19] MEDS: HEPARIN SODIUM (PORCINE) 5000 UNITS/ML 1ML VIAL ONE (17:24)
[2025-07-19] MEDS: PIPERACILLIN-TAZOB 3.375GM 100 ML IV SCH (21:51)
[2025-07-19] MEDS: METOPROLOL TARTRATE 25 MG TAB PO SCH (21:51)
[2025-07-20] VITALS (117 sets, daily range): BP systolic 64–193; BP diastolic 29–76; PULSE 55–105; RESP 11–47; TEMP 96.8–99.5; O2SAT 35–100
[2025-07-20 03:48] LABS: Hemoglobin 7.9 g/dL (13.5-17.5)
[2025-07-20 03:50] LABS: Hematocrit 24.1 % (41.0-53.0); Mean Corpuscular Hemoglobin 28.7 pg (28.0-32.0); Mean Corpuscular Volume 87.1 fL (80.0-100.0)
[2025-07-20 04:02] LABS: Alanine Aminotransferase 14 U/L (7-40); Alkaline Phosphatase 84 U/L (46-116); Anion Gap 11 (5-15); BUN/Creatinine Ratio 41.8 (10.0-20.0); Carbon Dioxide 29 mmol/L (20-31); Magnesium 2.4 mg/dL (1.6-2.6); Potassium 4.0 mmol/L (3.5-5.1)
[2025-07-20 04:06] LABS: Albumin 2.2 g/dL (3.2-4.8); Bilirubin, Total 1.4 mg/dL (0.2-1.0); Blood Urea Nitrogen 38 mg/dL (9-23); Calcium 7.5 mg/dL (8.7-10.4); Chloride 110 mmol/L (98-107); Glucose 196 mg/dL (74-106); Sodium 150 mmol/L (136-145); Total Protein 5.4 g/dL (5.7-8.2)
[2025-07-20 04:42] LABS: Total Cells Counted 100.0 (100)
--- NOTE | 2025-07-20 05:46 | DVH ---
CHEST RADIOGRAPH Indication: on vent Technique: Single frontal view of the chest was obtained COMPARISON: XY CHEST XRAY 1 VIEW on DOS: 07/19/25, US CHEST ULTRASOUND on DOS: 07/18/25, XY CHEST XRAY 1 VIEW on DOS: 07/18/25, XY CHEST XRAY 1 VIEW on DOS: 07/17/25, XY CHEST XRAY 1 VIEW on DOS: 07/16/25 FINDINGS: Lines and Tubes: Endotracheal tube and enteric catheter in satisfactory position. Lungs: Right lower lobe airspace disease. Pleura: No effusion.No pneumothorax. Cardiomediastinal contours: Cardiomegaly. Bones: Unremarkable IMPRESSION: Lines and tubes in satisfactory position. No significant interval change.
[2025-07-20 06:27] LABS: Base Excess 3.5 mmol/L (-2.0-3.0)
--- NOTE | 2025-07-20 08:03 | ECG ---
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
--- NOTE | 2025-07-20 08:43 | DVHOP2 ---
Operative Report - 2 Report Details Date: 07/20/25 Preop Diagnosis: Severe CAD. Postop Diagnosis: Atrial fibrillation. Coronary artery disease Surgeon: Phillip Mtz MD Anesthesiologist: Patient on ventilator, Conscious sedation Anesthesia: Mac, Local Consent: The patient was informed of the risks and benefits of the procedure. These include but are not limited to complications of anesthesia, postoperative infection, incomplete relief of symptoms, recurrence of symptoms, damage to blood vessels, nerves and tendons, deep venous thrombosis, pulmonary embolism and possible need for repeat surgery in the future. Complications: No complications Indications for Surgery: Tachy-sergio syndrome Name of Procedure Performed Micra pacemaker implantation Procedure Details Procedure Details: Prior local anesthesia with 2% lidocaine to the right groin and full informed consent obtained from family the patient was prepped and draped in usual fashion. A sheath was advanced into the right femoral vein under fluoroscopic and ultrasound guidance. We used 04/16/2012 and 16 Monegasque dilators and placed a 20 Monegasque sheath into the right femoral vein through which a micra Medtronic pacemaker sheath was implanted into the right atrium and interventricular septum where it was confirmed to have good capture and sensitivity thresholds as well as impedance. The micro device was subsequently disconnected from the sheath and the tethers were cut. The sheath were then removed and a [id number] stitch was used to close the skin over the femoral vein. Patient tolerated the procedure well there were no complications. A TP S, MC 2 AV AR1 micra AV 2, serial number in [id number] by Medtronic was implanted into the interventricular septum. The right ventricular R-wave was 9.9 with a pacing impedance of 1010 and a pacing threshold of 0.88 volts at 0.24 milliseconds. Impression: Successful placement of Medtronic micra permanent pacemaker implanted in RV septum without complications., sick sinus syndrome, tachy-sergio syndrome. Recommendations: Continue with negative chronotropic medication for rate control. Resume previous medications and anticoagulation if indicated. Condition Guarded Disposition Still a Patient Date of Service: Jul 20, 2025 Billing Provider: PHILLIP MTZ Sr., MD Cardiology Common Codes: 95286-[id number] INP/OBS CARE (High) (Micra permanent pacemaker implantation) Card. Pacer Implants/Gen [id number] SING LEAD PACER PHILLIP MTZ Sr., MD Jul 20, 2025 08:43
--- NOTE | 2025-07-20 09:55 | DVHPN2 ---
Consult Progress Note Date Seen: Jul 20, 2025 Subjective Other Systems: No overnight cardiac events reported Objective vital signs Vital Sign Date Time Temp Pulse Resp B/P (MAP) Pulse Ox O2 Delivery O2 Flow Rate FiO2 07/20/25 07:48 95 27 135/59 (84) 98 30 07/20/25 06:00 Mechanical Ventilator+ 07/20/25 04:00 96.8 96.8 Total Intake and Output 07/19/25 07/19/25 07/20/25 15:00 23:00 07:00 Intake Total 472.548 ml 1049.100 ml 840.800 ml Output Total 700 ml 550 ml Balance 472.548 ml 349.100 ml 290.800 ml medications Current Medications Medications Dose Ordered Sig/Jesse Route Start Time Stop Time Status Last Admin Dose Admin Atorvastatin Calcium 40 mg HS PO 06/29/25 22:00 07/19/25 21:52 40 MG Fentanyl Citrate 250 ml @ 2.5 mls/hr Q24H IV 06/29/25 06:15 07/20/25 05:18 5 MLS/HR Aspirin 81 mg DAILY PO 06/30/25 10:00 07/19/25 09:40 81 MG Insulin Human Regular HS SC 06/29/25 22:00 Cancel Insulin Human Regular AC SC 06/29/25 17:00 Cancel Pantoprazole Sodium 40 mg DAILY IV 06/30/25 10:00 07/19/25 09:39 40 MG Clopidogrel Bisulfate 75 mg DAILY PO 06/30/25 10:00 07/19/25 09:40 75 MG Diagnostic Test (Pha) 1 strip IQ4HR 06/29/25 20:00 07/20/25 08:01 1 STRIP Insulin Human Regular IQ4HR SC 06/29/25 20:00 07/20/25 04:58 3 UNITS Dextrose 50 ml UD PRN IV 06/29/25 17:30 Midazolam HCl 100 ml @ 1 mls/hr Q24H IV 06/29/25 18:00 07/19/25 09:24 1 MLS/HR Enoxaparin Sodium 100 mg Q12HR SC 06/30/25 10:00 Hold 07/16/25 09:06 100 MG Enteral Nutritional Formula 1,000 ml 45ML/HR GT 06/30/25 17:15 07/19/25 20:14 1,000 ML Acetaminophen 650 mg Q4HP PRN PO 07/01/25 17:00 07/17/25 23:56 650 MG Vancomycin HCl 0 ml @ 0 mls/hr PER PHARMACY IV 07/02/25 13:15 Insulin Glargine 12 units HS SC 07/06/25 22:00 07/19/25 21:53 12 UNITS Polyethylene Glycol 17 gm DAILY PO 07/08/25 10:00 07/16/25 09:03 17 GM Propofol 100 ml @ 3.225 mls/ hr Q24H IV 07/08/25 09:45 07/19/25 21:54 9.675 MLS/HR Sennosides 8.6 mg HS PO 07/10/25 22:00 07/19/25 21:51 8.6 MG Digoxin 250 mcg DAILY IV 07/12/25 10:00 07/19/25 09:39 250 MCG Lactulose 30 ml DAILY PO 07/12/25 10:00 07/16/25 09:03 30 ML Empaglifozin 10 mg DAILY PO 07/14/25 10:00 07/19/25 09:40 10 MG Sodium Chloride 10 ml QSHIFT@10,22 IV 07/14/25 22:00 07/19/25 21:50 10 ML Norepinephrine Bitartrate 250 ml @ 3.75 mls/hr Q24H IV 07/17/25 03:15 07/17/25 03:24 3.75 MLS/HR Vancomycin HCl 250 ml @ 250 mls/hr DAILY@1900 IV 07/17/25 19:00 07/19/25 18:50 250 MLS/HR Dextrose 1,000 ml @ 50 mls/hr Q20H IV 07/19/25 10:30 07/20/25 05:50 50 MLS/HR Metoprolol Tartrate 12.5 mg BID PO 07/19/25 22:00 07/19/25 21:51 12.5 MG Piperacillin Sod/ Tazobactam Sod 100 ml @ 25 mls/hr Q8HR IV 07/19/25 22:00 07/20/25 05:50 25 MLS/HR Examination: GENERAL:Abnormal, LUNGS:Abnormal (Endotracheally intubated 30% FiO2), CVS:Normal (A-fib controlled rate. Off vasopressors), MSK:Abnormal (Bilateral upper extremities edema (third spacing)), NEURO:Abnormal (Chemically sedated) laboratory and microbiology Laboratory Tests 07/20/25 03:00 Test 07/20/25 03:00 Range/Units Serum Glucose 196 H 74-106 mg/dL Problem List/Assessment/Plan Problem List/Assessment/Plan Cardiac arrest secondary to ventricular arrhythmia (ventricular tachycardia and torsades de Pointe) - status post ROSC NSTEMI type 1 - status post PCI with 4 STANLEY to circumflex and 3 STANLEY to LAD Newly diagnosed coronary artery disease - triple-vessel disease De Sarabjit Decompensated HFrEF, NYHA Class IV Persistent atrial fibrillation with RVR ([id number] Score 7) - secondary hypercoagulability state Atrial fibrillation with tachybrady events status post micra-leadless pacemaker implantation on 07/19/2025 Prolonged QTc, resolved Metabolic acidosis with elevated anion gap secondary to hyperlacticacidemia KEANU hemodynamically mediated (VMN) 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 Mtz) Patient presented with cardiac arrest with requirement of ACLS maneuver for 8 minutes with endotracheal intubation EKG shows atrial fibrillation with anterior T-wave inversions, prolonged QT (longest was 580 milliseconds) Completed coronary angiography which showed severe triple-vessel disease with acutely occluded circumflex currently status post PCI with 4 STANLEY and staged procedure to LAD with 3 STANLEY placed. He was attempted stage procedure of the mid-RCA which was unsuccessful Revascularized culprit vessel. Completed stage procedure to LAD on 07/05/2025. Unsuccessful staged mid-RCA on 07/12/2025 (can be completed in this center or in [facility]). Echocardiogram: LVEF 20%, moderate LV enlargement, severe end stage HF, RV dysfunction, moderate MAC, mild MR and TR, moderate pulmonary HTN Initially was on heparin drip, now on therapeutic enoxaparin for A-fib. Attempted DCCV which was unsuccessful on 07/12/2025 Tachy-sergio events status post micra-leadless pacemaker implantation on 07/19/2025 Currently on mechanical assisted ventilation with 30% FiO2 Rest of management per primary team (on IV antibiotics) Plan: Case discussed with Dr. Mtz. Patient currently ICU status due to mechanical assisted ventilation and off vasopressors. Completed initial coronary angiography on 06/29/2025 which showed triple-vessel disease with acute circumflex occlusion status post PCI with 4 STANLEY placed, staged procedure to LAD with 3 STANLEY on 07/05/2025 and unsuccessful staged procedure of the mid-RCA on 07/12/2025. Attempted unsuccessful DCCV on 07/12/2025. Recommendations are to continue therapeutic Lovenox and transition to DOAC therapy when appropriate, continue dual-antiplatelet therapy (Plavix and ASA) and stop ASA on 08/05/2025 with continuation of DOAC and Plavix for the remaining. Currently off therapeutic Lovenox which places him at a high risk for an acute CVA. Monitor H&H closely and reestablish when appropriate. Initiate full GDMT for HFrEF when able to tolerate, in the meantime only SGLT2i and low-dose beta-gary. Optimize electrolytes, avoid QT prolonging medication. We will consider revascularization of mid-RCA once patient is awake and extubated which could also be completed at [facility] given high risk for complications and surgical backup. Given atrial fibrillation with tachy-sergio events, the patient underwent a micra-leadless pacemaker implantation on 07/19/2025. Pacemaker interrogation was completed today, unremarkable. Obtain a bilateral upper extremity venous US and initiate albumin therapy. Patient has a very poor prognosis. Goals of care discussed with : Full code status. Critical care time spent including discussion with nursing and family, excluding procedures: 30 minutes. Plan discussed with: Other Dietary Evaluation Review Comments: 1. Protein needs based on 1.2-1.5g/protein/kg IBW d/t low GFR 2. While being intubated, offer TF Vital HP @45ml/hr, in 24 hr, Pt will receive 94g protein, 1080lkcal 903ml free water, meeting pts needs at 97% protein and 100% energy. 3. Consider TPN to meet pt's needs if Pt does not tolerate TF well. 4. Reassess when pt extubated, advance to CCHO-60 PO diet after passing a FILTERS ASSEMBLER evluation. Expected Outcomes/Goals: off intubation, advance to CCHO-60 Cardiac diet, gradual wt loss Date of Service: Jul 20, 2025 Billing Provider: ELMO NICHOLAS Cardiology Common Codes: 62769-[id number] CARE 30-74 MIN ELMO NICHOLAS Jul 20, 2025 09:55
--- NOTE | 2025-07-20 11:51 | DVH ---
Technique: Real-time ultrasound imaging, with color Doppler and compression of the left upper extremities. Indication: Edema rule out DVT Comparison: None Findings: There is normal compressibility and flow augmentation in all of the imaged deep veins. There are no filling defects. The right basilic and left cephalic veins are not visualized. PICC line in the right cephalic vein. Impression: No evidence of DVT in the imaged portion of the bilateral upper extremities.
[2025-07-20] MEDS: ALBUMIN 25% 100 ML IV SCH (12:01)
[2025-07-20 13:03] LABS: Base Excess 3.0 mmol/L (-2.0-3.0)
[2025-07-20] MEDS: FUROSEMIDE 20 MG/2 ML VIAL IV ONE ×2 (13:15→15:42)
[2025-07-20] MEDS: METOPROLOL TARTRATE 25 MG TAB PO ONE (15:10)
[2025-07-20] MEDS ORDERED: ACETYLCYSTEINE 10 %(100MG/ML) SOL 4ML NEB SCH ×2 (16:00→18:00)
[2025-07-20] MEDS ORDERED: LEVALBUTEROL HCL 1.25 MG/3 ML NEB NEB SCH ×2 (16:00→18:00)
[2025-07-20] MEDS: LEVALBUTEROL HCL 1.25 MG/3 ML NEB NEB ONE (16:07)
[2025-07-20] MEDS: ACETYLCYSTEINE 10 %(100MG/ML) SOL 4ML NEB ONE (16:07)
[2025-07-20] MEDS: ACETYLCYSTEINE 10 %(100MG/ML) SOL 4ML ONE (16:09)
[2025-07-20] MEDS: LEVALBUTEROL HCL 1.25 MG/3 ML NEB ONE (16:10)
[2025-07-20] MEDS: FUROSEMIDE 20 MG/2 ML VIAL ONE (16:11)
[2025-07-20] MEDS: LABETALOL HCL 20 MG/4 ML VL IV PRN (16:20)
--- NOTE | 2025-07-20 16:50 | DVHPNRES ---
Progress Note Date Seen: Jul 20, 2025 Resident Creating Document: CYNTHIA LOVE RESIDENT Medical Necessity Reason Pt with a Central, PICC or Fol: Yes The following are medically ne: Central Line, Lau Catheter Reason for lau catheter: Strict I&O Subjective Review of Systems Patient is a 74-year-old male with past medical history of hypertension, diabetes type 2, dyslipidemia, paroxysmal atrial fibrillation, CVA in 2019, presented to the ED with chief complaints of 3 days of palpitations, shortness of breath before his admission. On arrival to the ED patient was found to have atrial fibrillation with RVR and was started on a diltiazem drip to control his heart rate. Patient progressed to have cardiac arrest secondary to ventricular arrhythmias possibly ventricular tachycardia or torsades de Pointe. Patient required CPR and ACLS maneuvers for 8 minutes followed by endotracheal intubation, obtained by ROSC. Patient was initially on amiodarone drip which was later discontinued after magnesium was given for QT prolongation. Due to clinical status obtained history of present illness and past medical history from EMR and who is at bedside. Could not obtain review of systems. Cardiology consulted for elevated troponins. Past medical history: Hypertension, dyslipidemia, diabetes, paroxysmal atrial fibrillation diagnosed in 2017 (chads Vasc 7), 2019 CVA Past surgical history: Appendectomy Family history: Two brothers had heart disease requiring CABG at the age of 40 and 50 respectively, brother had lung cancer, mother had breast cancer Social history: with . Ex tobacco abuse (eight pack-year history of smoking) quit 30 years ago. Denies current tobacco, alcohol and other drug abuse Allergies: Denies Home medication: Pradaxa 150 mg p.o. daily, atorvastatin 40 mg p.o. daily, hydrochlorothiazide 12.5 mg p.o. daily, lisinopril 20 mg p.o. daily, glipizide, metformin a 1000 mg p.o. b.i.d., metoprolol (he quit taking for four months since it made him tired). 06/30/25: Patient seen and examined at bedside. Patient is currently sedated and on mechanically ventilation, with ventilator settings at tidal volume 500, FiO2 30%, peep at 5, off of pressors phenylephrine and norepinephrine. 07/01/2025: Patient seen and examined at bedside. Patient is currently sedated and mechanically ventilated. Patient today has fever and elevated WBC, blood culture ordered. Patient is on pressor Levophed 9, patient's HR 150- 160s, order was given of metoprolol IV 5 mg with partial control of the RVR, also digoxin loading dose given. Metoprolol 25 mg PO daily was also placed for tomorrow. 07/02/2025: Patient seen and examined in ICU. Hr is under controlled. Intubated. temperature 99.3 started cefepime and vancomycin. blood culture G + bacteria. 07/03/2025 :Patient seen and examined in the ICU. Patient heart rate is under control, patient is intubated, mechanically ventilated, temperature 100.6. continue cefepime, vancomycin. Repeat blood cultures were ordered.(Staph coagulase negative, could be contaminate). Planning on performing LHC on Thursday07/05/2025, have informed . 07/04/2025: Patient seen and examined in ICU. Patient is mechanically intubated, patient had a fever yesterday night but decreased. Sputum culture showed Gram-negative rods. Discontinued cefepime. Started meropenem, 12.5 metoprolol b.i.d. Repeat blood cultures are negative. Planning on performing LHC on Thursday07/05/2025, have informed . 07/05/25: Patient seen and examined in ICU. Patient is mechanically intubated, patient had Bradycardia overnight for wich metoprlol was held. LHC was done today with 3 stents placed in the LAD. Possible RHC to be done. 07/06/2025: patient seen and examined in ICU. Patient is mechanically ventilated, had a left heart catheterization done yesterday with 3 stents placed in the LAD, Planning to do next procedure in one week to RCA. 07/07/2025: patient seen and examined in ICU. Patient is mechanically ventilated, had a left heart catheterization done yesterday with 3 stents placed in the LAD, CPAP trial done today, failed, we will try again tomorrow. 07/08/2025:patient seen and examined in ICU . on ventilator. CPAP trial failed, become tachypneic. we will try again. 07/09/2025: Patient seen and examined in ICU, on ventilator, overnight patient had AFib with RVR, so CPAP trial was deferred for today. We will try again tomorrow. discontinue metoprolol, patient's last bowel movement was on the so lactulose was given. Patient's WBC is 17.1. Cardiology following. Patient is to have a heart catheterization on Thursday. 07/10/2025: Patient seen and examined in ICU. on ventilator, no overnight events were noted. No CPAP trial until procedure on Thursday. Patient's last bowel movement was on the , senna was added, patient started on digoxin. 07/11/2025: Patient seen in examined in the ICU. patient is still on ventilator, on minimal ventilator settings, tidal volume was changed to 400. Patient has not had a bowel movement since , but abdomen soft. Patient is on fentanyl 175, propofol 24. chest ultrasound showed trace pleural effusion on the right side. Patient is to have heart catheterization tomorrow. 07/12/2025: Patient seen and examined in the ICU. patient is still on ventilator, on minimal ventilator settings, tidal volume was changed to 400. Patient underwent CALVIN, and is to undergo left heart cath today. : Patient seen and examined in ICU. Patient is still on ventilator, mineral ventilator setting, underwent left heart catheterization yesterday which was unsuccessful, cardioversion which was unsuccessful, today added metoprolol 25 mg p.o. b.i.d., PICC line to be placed, 1 pack of RBC was given. Today patient had bloody secretion from the ET tube, hematuria. Consult cardio if amiodarone can be given. 07/14/2025: Patient seen and examined in the ICU. Patient on ventilator, minimal ventilator setting, unsuccessful cardioversion, left heart catheterization, yesterday night patient's blood pressure dropped and metoprolol was changed to 12.5 mg. Hematuria has resolved, no bloody secretions from ET tube. Amnio is not to be given. 07/15/2025: Patient seen and examined in ICU. Continue pain ventilator. Trying to be off sedation. CPAP trial today. No any other new complaints 07/16/2025: Patient seen and examined in ICU. CPAP trial today. Off sedation, pressors. Lasix 20 mg was given. CPAP trial today failed, we will try again tomorrow. Patient had big bruise on right side, ordered h and h, and abdominal CT, if bleeding present hold Lovenox but not aspirin. 07/17/2025: Patient patient seen in the ICU. CPAP trial tomorrow. Patient off pressors, patient had a fever, is on Precedex 0.4. Patient today is opening his eyes, following commands, CT abdomen showed left greater than right rectus abdominis hematoma. One PRBC was given today. Held Lovenox. 07/18/25: Patient seen in ICU. CPAP trial done today failed we will try again tomorrow. Patient is off pressors, on Precedex 0.4. Patient is opening his eyes, following commands, monitor hemoglobin. Held Lovenox. Metoprolol was changed to 25 b.i.d. 07/19/25: Patient seen in ICU. CPAP trial done today and fell. Patient had a episode of bradycardia to 35 overnight. Patient has tachy sergio syndrome. Cardiology recommended pacemaker. IV meropenem was changed to IV Zosyn Q 8. Repeat sputum culture was ordered. 07/20/2025: Patient seen in ICU. CPAP trial done today. Patient is on ventilator, no pressors, no sedation. Patient had a micra leadless pacemaker placed yesterday. Discontinued vancomycin. Monitor WBC. Pacemaker was interrogated and no overnight events reported. Patient had bilateral upper extremity swelling. Upper extremity DVT was negative. Patient extubated and reintubated today. Objective vital signs Vital Sign Date Time Temp Pulse Resp B/P (MAP) Pulse Ox O2 Delivery O2 Flow Rate FiO2 07/20/25 16:20 97 173/61 07/20/25 16:00 33 99 Bi-Pap+ 15 N/A Mechanical Ventilator+ 07/20/25 04:00 96.8 96.8 Total Intake and Output 07/19/25 07/19/25 07/20/25 15:00 23:00 07:00 Intake Total 472.548 ml 1049.100 ml 840.800 ml Output Total 700 ml 550 ml Balance 472.548 ml 349.100 ml 290.800 ml medications Current Medications Medications Dose Ordered Sig/Jesse Route Start Time Stop Time Status Last Admin Dose Admin Atorvastatin Calcium 40 mg HS PO 06/29/25 22:00 07/19/25 21:52 40 MG Fentanyl Citrate 250 ml @ 2.5 mls/hr Q24H IV 06/29/25 06:15 07/20/25 05:18 5 MLS/HR Aspirin 81 mg DAILY PO 06/30/25 10:00 07/20/25 09:45 81 MG Insulin Human Regular HS SC 06/29/25 22:00 Cancel Insulin Human Regular AC SC 06/29/25 17:00 Cancel Pantoprazole Sodium 40 mg DAILY IV 06/30/25 10:00 07/20/25 09:51 40 MG Clopidogrel Bisulfate 75 mg DAILY PO 06/30/25 10:00 07/20/25 09:45 75 MG Diagnostic Test (Pha) 1 strip IQ4HR 06/29/25 20:00 07/20/25 16:21 1 STRIP Insulin Human Regular IQ4HR SC 06/29/25 20:00 07/20/25 04:58 3 UNITS Dextrose 50 ml UD PRN IV 06/29/25 17:30 Midazolam HCl 100 ml @ 1 mls/hr Q24H IV 06/29/25 18:00 07/19/25 09:24 1 MLS/HR Enteral Nutritional Formula 1,000 ml 45ML/HR GT 06/30/25 17:15 07/19/25 20:14 1,000 ML Acetaminophen 650 mg Q4HP PRN PO 07/01/25 17:00 07/17/25 23:56 650 MG Insulin Glargine 12 units HS SC 07/06/25 22:00 07/19/25 21:53 12 UNITS Polyethylene Glycol 17 gm DAILY PO 07/08/25 10:00 07/16/25 09:03 17 GM Propofol 100 ml @ 3.225 mls/ hr Q24H IV 07/08/25 09:45 07/19/25 21:54 9.675 MLS/HR Sennosides 8.6 mg HS PO 07/10/25 22:00 07/19/25 21:51 8.6 MG Digoxin 250 mcg DAILY IV 07/12/25 10:00 07/20/25 09:50 250 MCG Lactulose 30 ml DAILY PO 07/12/25 10:00 07/16/25 09:03 30 ML Empaglifozin 10 mg DAILY PO 07/14/25 10:00 07/20/25 09:45 10 MG Sodium Chloride 10 ml QSHIFT@10,22 IV 07/14/25 22:00 07/20/25 09:51 10 ML Norepinephrine Bitartrate 250 ml @ 3.75 mls/hr Q24H IV 07/17/25 03:15 07/17/25 03:24 3.75 MLS/HR Dextrose 1,000 ml @ 50 mls/hr Q20H IV 07/19/25 10:30 07/20/25 05:50 50 MLS/HR Piperacillin Sod/ Tazobactam Sod 100 ml @ 25 mls/hr Q8HR IV 07/19/25 22:00 07/20/25 14:17 25 MLS/HR Metoprolol Tartrate 25 mg BID PO 07/20/25 22:00 Labetalol HCl 10 mg Q4HP PRN IV 07/20/25 15:00 07/20/25 16:20 10 MG Acetylcysteine 100 mg Q6HR NEB 07/20/25 18:00 UNV Levalbuterol HCl 0.625 mg Q6HR NEB 07/20/25 18:00 UNV Levalbuterol HCl 1.25 mg ONCE NEB 07/20/25 16:07 UNV Examination General: intubated, sedated HEENT: Normocephalic, atraumatic, moist mucous membranes Respiratory/pulmonary: Clear lungs bilaterally, vesicular murmurs present in almost all lung roberts, no associated crackles or wheezes. Cardiovascular: Normal heart sounds S1 and S2 with no associated murmurs Abdomen: Abdomen nondistended, there is no pain to palpation in any of the abdominal quadrants, no palpable masses. Right flank bruise Extremities: There is no peripheral edema present at the lower extremities. Bilateral erythematous and ulcerated lesions. Skin: No rashes or pruritus, there is no sacral edema present at this time laboratory and microbiology Laboratory Tests 07/20/25 03:00 Test 07/20/25 03:00 Range/Units Serum Glucose 196 H 74-106 mg/dL Microbiology Date/Time Source Procedure Growth Status 07/11/25 14:17 Blood Blood Culture - Final NO GROWTH AFTER 5 DAYS OF INCUBATION. Complete 07/03/25 16:00 Sputum Gram Stain - Final Complete 07/03/25 16:00 Respiratory Culture - Final Pseudomonas aeruginosa Serratia marcescens Complete 07/01/25 22:35 Urine - Catheterized Urine Culture - Final Complete 06/29/25 04:30 Nose MRSA Screen - Final Complete Problem List/Assessment/Plan Problem List/Assessment/Plan Neurology Acute metabolic encephalopathy History of CVA-with residual aphasia, right-sided deficit -Sedation/neurological status: Rass score -3 - off of Levophed, phenylephrine Cardiology Cardiac arrest secondary to ventricular arrhythmia (ventricular tachycardia, torsade de pointes) NSTEMI type 1 status post PCI Newly diagnosed coronary artery disease - triple-vessel disease Prolonged QT Paroxysmal atrial fibrillation with RVR Hypertension Dyslipidemia - EKG showed atrial fibrillation with anterior T-wave inversions, prolonged QT - coronary angiography showed severe triple-vessel disease with acutely occluded circumflex status post PCI with 1 drug-eluting stent placed. -ventriculogram showed LVEF of 15% - ordered echocardiography, lvef 20%, moderate LV enlargement, severe end stage HF - avoid QT prolongation medications - Dany Vasc score 7 -currently on vasopressors Levophed, phenylephrine -severe CAD in LAD and RCA, plan to do angiography on Thursday -patient given aspirin, atorvastatin, clopidogrel - ordered 12.5 metoprolol tartrate b.i.d. - LHC done (07/05) with 3 stents placed in LAD. - Planning on new stage procedure to RCA on Thursday. Repeat echocardiogram. -failed cardioversion, left heart catheterization. - digoxin 250 mcg added, - metoprolol 12.5 mg p.o. b.i.d. added - 07/19-repeat sputum culture ordered Respiratory Acute hypoxic respiratory failure likely due to cardiac arrest Possible Aspiration Pneumonia -ventilator settings: VT 500, respiratory rate 17, FiO2 30 %, PEEP 5 -chest x-ray: Similar bilateral inferior graded opacities, likely a combination of airspace disease and pleural effusion. Genitourinary/kidney Acute kidney injury likely due to be VMN -medication: Given Lasix 20 mg once -strict I&Os -nephrotoxic drugs Endocrine Uncontrolled diabetes mellitus, HbA1c 10.6 - on insulin sliding scale Infectious Septic shock due to Aspiration pneumonia -urine culture preliminary negative -blood cultures ordered, as WBC elevated and fever present -blood culture showed positive staph coagulase negative. - repeat blood cultures negative - Respiratory culture (07/03) - Pseudomonas aeruginosa - meropenem started(07/04), (07/19) IV meropenem was changed to IV Zosyn Q 8. Discontinue vancomycin. - repeat blood cultures (07/12) were negative Transaminitis - monitor labs Obesity BMI 33.0 Lines / Tubes / Devices Airway: Intubated via ETT on 06/29 Vascular Access: Central line 06/29 Drips: Fentanyl, midazolam, norepinephrine, phenylephrine, Versed Prophylaxis / Supportive Care DVT Prophylaxis: Lovenox. GI Prophylaxis: Protonix. Goals of care discussed with the patient family for more than 29 minutes: Full code state Patient care updated to (Myrna), addressed all concerns. Critical care time spent excluding procedures and including cpap trial and extubation was 86 minutes Plan discussed with Dr. Waters and RN Plan discussed with: Spouse My Orders My Orders Orders - CYNTHIA LOVE Procedure Category Date Status Time Piperacillin-Tazob PHA 07/19/25 In Process 3.375gm (Zosyn 3.375g 22:00 Chest Xray 1 View XY 07/20/25 Resulted 04:00 Abg W/ Co-Ox RT 07/20/25 Logged 04:00 Cpap Trial For Am ORDERS 07/20/25 Transmitted 11:45 Dietary Evaluation Review Comments: 1. Protein needs based on 1.2-1.5g/protein/kg IBW d/t low GFR 2. While being intubated, offer TF Vital HP @45ml/hr, in 24 hr, Pt will receive 94g protein, 1080lkcal 903ml free water, meeting pts needs at 97% protein and 100% energy. 3. Consider TPN to meet pt's needs if Pt does not tolerate TF well. 4. Reassess when pt extubated, advance to CCHO-60 PO diet after passing a CREW MESS ATTENDANT evluation. Expected Outcomes/Goals: off intubation, advance to CCHO-60 Cardiac diet, gradual wt loss Date of Service: Jul 20, 2025 Billing Provider: YOBANY AGUIRRE MD Common Visit Codes: 56751-[id number] CARE 30-74 MIN, 55469-EOTINYOD CARE-EACH +30MIN CYNTHIA LOVE Jul 20, 2025 16:50 OYBANY AGUIRRE MD Jul 22, 2025 18:19
[2025-07-20 17:08] LABS: Base Excess 3.3 mmol/L (-2.0-3.0)
[2025-07-20] MEDS: ROCURONIUM 10MG/ML 10ML VIAL IV ONE ×2 (17:30)
[2025-07-20] MEDS: ETOMIDATE (2MG/ML) 20ML VIAL IV ONE ×2 (17:30)
--- NOTE | 2025-07-20 17:33 | DVHNC2 ---
Intubation Indication: Respiratory Insufficiency Prep: Preoxygenation Pretreated with: Analgesia, Sedation Medicated with: Other (ROCURONIUM) Intubation size: cm (8) Informed consent obtained: Yes Risks/benefits/alt described: Yes Date of Service: Jul 20, 2025 Billing Provider: YOBANY AGUIRRE MD Common Visit Codes: PROCEDURE ONLY Procedure Codes: [id number] YOBANY AGUIRRE MD Jul 20, 2025 17:33
[2025-07-20] MEDS: SOD CHL 0.45% 1,000 ML IV ONE (17:45)
--- NOTE | 2025-07-20 18:14 | DVH ---
CHEST RADIOGRAPH Indication: check ett placement Technique: Single frontal view of the chest was obtained Comparison: XY CHEST XRAY 1 VIEW on DOS: 07/20/25, XY CHEST XRAY 1 VIEW on DOS: 07/19/25, XY CHEST XRAY 1 VIEW on DOS: 07/18/25 FINDINGS: Lines and Tubes: Endotracheal tube 4.2 cm above the kolby. Enteric tube below the left diaphragm in the stomach. Lungs: Space disease occupying majority of the left gisel thorax possible small left pleural effusion and airspace disease and/or atelectasis the right lower lobe. Pleura: No effusion. No pneumothorax. Cardiomediastinal contours: Unremarkable Bones: No acute osseous abnormality. IMPRESSION: 1. Endotracheal tube 4.2 cm above the kolby. 2. Interval development of atelectasis bilaterally point compared chest x-ray done 07/20/2025 0519
[2025-07-20 18:52] LABS: Base Excess 2.3 mmol/L (-2.0-3.0)
[2025-07-20] MEDS: METOPROLOL TARTRATE 25 MG TAB PO SCH (22:23)
[2025-07-21] VITALS (113 sets, daily range): BP systolic 83–145; BP diastolic 33–76; PULSE 49–184; RESP 15–37; TEMP 97.6–98.4; O2SAT 0–100
[2025-07-21 03:19] LABS: Hemoglobin 7.7 g/dL (13.5-17.5)
[2025-07-21 03:21] LABS: Hematocrit 22.7 % (41.0-53.0); Mean Corpuscular Hemoglobin 29.4 pg (28.0-32.0); Mean Corpuscular Volume 86.5 fL (80.0-100.0)
[2025-07-21 03:35] LABS: Alanine Aminotransferase 18 U/L (7-40); Alkaline Phosphatase 74 U/L (46-116); Anion Gap 11 (5-15); BUN/Creatinine Ratio 25.6 (10.0-20.0); Carbon Dioxide 28 mmol/L (20-31); Magnesium 2.2 mg/dL (1.6-2.6); Potassium 3.5 mmol/L (3.5-5.1)
[2025-07-21 03:59] LABS: Albumin 2.5 g/dL (3.2-4.8); Bilirubin, Total 1.5 mg/dL (0.2-1.0); Blood Urea Nitrogen 23 mg/dL (9-23); Calcium 7.2 mg/dL (8.7-10.4); Chloride 109 mmol/L (98-107); Glucose 155 mg/dL (74-106); Sodium 148 mmol/L (136-145); Total Protein 5.4 g/dL (5.7-8.2)
--- NOTE | 2025-07-21 06:00 | DVH ---
MEDICAL RECORDS NUMBER: [id number] PROCEDURE: XY CHEST XRAY 1 VIEW DATE: 07/21/2025 05:37 AM HISTORY: on vent Views:1 COMPARISON: XY CHEST PORTABLE on DOS: 07/20/25, XY CHEST XRAY 1 VIEW on DOS: 07/20/25, XY CHEST XRAY 1 VIEW on DOS: 07/19/25, XY CHEST XRAY 1 VIEW on DOS: 07/18/25, XY CHEST XRAY 1 VIEW on DOS: 07/17/25 FINDINGS/IMPRESSION: Lungs: Hazy density of the right lung is concerning for infiltrates. Study is somewhat hampered by overlying soft tissues. Mediastinum: Mediastinal structures appear unremarkable.A endotracheal tube is seen with the tip projecting approximately 2 cm above the kolby.Nasogastric tube courses through the film. Skeletal: The skeletal structures appear unremarkable.
[2025-07-21 06:18] LABS: Base Excess 2.3 mmol/L (-2.0-3.0)
[2025-07-21 06:40] LABS: Total Cells Counted 100.0 (100)
--- NOTE | 2025-07-21 10:10 | DVHPN2 ---
Consult Progress Note Date Seen: Jul 21, 2025 Subjective Other Systems: Notified of HR < 50s bpm Objective vital signs Vital Sign Date Time Temp Pulse Resp B/P (MAP) Pulse Ox O2 Delivery O2 Flow Rate FiO2 07/21/25 09:10 60 07/21/25 09:08 118/33 07/21/25 08:20 19 97 30 07/21/25 07:54 Mechanical Ventilator+ 07/21/25 04:01 98.4 98.4 07/20/25 16:00 15 Total Intake and Output 07/20/25 07/20/25 07/21/25 15:00 23:00 07:00 Intake Total 400 ml 1023.600 ml 901.900 ml Output Total 750 ml 1750 ml Balance 400 ml 273.600 ml -848.100 ml medications Current Medications Medications Dose Ordered Sig/Jesse Route Start Time Stop Time Status Last Admin Dose Admin Atorvastatin Calcium 40 mg HS PO 06/29/25 22:00 07/20/25 22:22 40 MG Fentanyl Citrate 250 ml @ 2.5 mls/hr Q24H IV 06/29/25 06:15 07/21/25 04:42 10 MLS/HR Aspirin 81 mg DAILY PO 06/30/25 10:00 07/21/25 08:57 81 MG Insulin Human Regular HS SC 06/29/25 22:00 Cancel Insulin Human Regular AC SC 06/29/25 17:00 Cancel Pantoprazole Sodium 40 mg DAILY IV 06/30/25 10:00 07/21/25 08:54 40 MG Clopidogrel Bisulfate 75 mg DAILY PO 06/30/25 10:00 07/21/25 08:57 75 MG Diagnostic Test (Pha) 1 strip IQ4HR 06/29/25 20:00 07/21/25 04:40 1 STRIP Insulin Human Regular IQ4HR SC 06/29/25 20:00 07/20/25 04:58 3 UNITS Dextrose 50 ml UD PRN IV 06/29/25 17:30 Midazolam HCl 100 ml @ 1 mls/hr Q24H IV 06/29/25 18:00 07/21/25 00:28 3 MLS/HR Enteral Nutritional Formula 1,000 ml 45ML/HR GT 06/30/25 17:15 07/19/25 20:14 1,000 ML Acetaminophen 650 mg Q4HP PRN PO 07/01/25 17:00 07/17/25 23:56 650 MG Insulin Glargine 12 units HS SC 07/06/25 22:00 07/20/25 22:24 12 UNITS Polyethylene Glycol 17 gm DAILY PO 07/08/25 10:00 07/21/25 08:57 17 GM Propofol 100 ml @ 3.225 mls/ hr Q24H IV 07/08/25 09:45 07/21/25 09:00 6.45 MLS/HR Sennosides 8.6 mg HS PO 07/10/25 22:00 07/20/25 22:22 8.6 MG Digoxin 250 mcg DAILY IV 07/12/25 10:00 07/21/25 09:10 250 MCG Lactulose 30 ml DAILY PO 07/12/25 10:00 07/21/25 08:56 30 ML Empaglifozin 10 mg DAILY PO 07/14/25 10:00 07/21/25 08:57 10 MG Sodium Chloride 10 ml QSHIFT@10,22 IV 07/14/25 22:00 07/21/25 08:58 10 ML Norepinephrine Bitartrate 250 ml @ 3.75 mls/hr Q24H IV 07/17/25 03:15 07/20/25 17:45 3.75 MLS/HR Dextrose 1,000 ml @ 50 mls/hr Q20H IV 07/19/25 10:30 07/21/25 04:39 50 MLS/HR Piperacillin Sod/ Tazobactam Sod 100 ml @ 25 mls/hr Q8HR IV 07/19/25 22:00 07/21/25 06:19 25 MLS/HR Metoprolol Tartrate 25 mg BID PO 07/20/25 22:00 07/21/25 09:08 25 MG Labetalol HCl 10 mg Q4HP PRN IV 07/20/25 15:00 07/20/25 16:20 10 MG Examination: GENERAL:Abnormal, LUNGS:Abnormal (Enodtracheally intubated with 30% FiO2), CVS:Normal (A-fib with intermittent v-paced rhythm. Off vasopressors), NEURO:Abnormal (Chemically sedated) laboratory and microbiology Laboratory Tests 07/21/25 02:40 Test 07/21/25 02:40 Range/Units Serum Glucose 155 H 74-106 mg/dL Problem List/Assessment/Plan Problem List/Assessment/Plan Cardiac arrest secondary to ventricular arrhythmia (ventricular tachycardia and torsades de Pointe) - status post ROSC NSTEMI type 1 - status post PCI with 4 STANLEY to circumflex and 3 STANLEY to LAD Newly diagnosed coronary artery disease - triple-vessel disease De Sarabjit Decompensated HFrEF, NYHA Class IV Persistent atrial fibrillation with RVR ([id number] Score 7) - secondary hypercoagulability state Atrial fibrillation with tachybrady events status post micra-leadless pacemaker implantation on 07/19/2025 Prolonged QTc, resolved Metabolic acidosis with elevated anion gap secondary to hyperlacticacidemia KEANU hemodynamically mediated (VMN) 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 Mtz) Patient presented with cardiac arrest with requirement of ACLS maneuver for 8 minutes with endotracheal intubation EKG shows atrial fibrillation with anterior T-wave inversions, prolonged QT (longest was 580 milliseconds) Completed coronary angiography which showed severe triple-vessel disease with acutely occluded circumflex currently status post PCI with 4 STANLEY and staged procedure to LAD with 3 STANLEY placed. He was attempted stage procedure of the mid-RCA which was unsuccessful Revascularized culprit vessel. Completed stage procedure to LAD on 07/05/2025. Unsuccessful staged mid-RCA on 07/12/2025 (can be completed in this center or in [place]). Echocardiogram: LVEF 20%, moderate LV enlargement, severe end stage HF, RV dysfunction, moderate MAC, mild MR and TR, moderate pulmonary HTN Initially was on heparin drip, now on therapeutic enoxaparin for A-fib. Attempted DCCV which was unsuccessful on 07/12/2025 Tachy-sergio events status post micra-leadless pacemaker implantation on 07/19/2025 Currently on mechanical assisted ventilation with 30% FiO2 Rest of management per primary team (on IV antibiotics) Plan: Case discussed with Dr. Mtz. Patient currently ICU status due to mechanical assisted ventilation and off vasopressors. Completed initial coronary angiography on 06/29/2025 which showed triple-vessel disease with acute circumflex occlusion status post PCI with 4 STANLEY placed, staged procedure to LAD with 3 STANLEY on 07/05/2025 and unsuccessful staged procedure of the mid-RCA on 07/12/2025. Attempted unsuccessful DCCV on 07/12/2025. Recommendations are to continue therapeutic Lovenox and transition to DOAC therapy when appropriate, continue dual-antiplatelet therapy (Plavix and ASA) and stop ASA on 08/05/2025 with continuation of DOAC and Plavix for the remaining. Currently off therapeutic Lovenox which places him at a high risk for an acute CVA. Monitor H&H closely and reestablish when appropriate. Initiate full GDMT for HFrEF when able to tolerate, in the meantime only SGLT2i and low-dose beta-gary. Optimize electrolytes, avoid QT prolonging medication. We will consider revascularization of mid-RCA once patient is awake and extubated which could also be completed at [facility] given high risk for complications and surgical backup. Given atrial fibrillation with tachy-sergio events, the patient underwent a micra-leadless pacemaker implantation on 07/19/2025. Pacemaker interrogation was completed on 07/20/25, unremarkable. HR low rate limit was set at 50 bpm. Kindly call if in need of further recommendations. Patient has a very poor prognosis. Goals of care discussed with : Full code status. Critical care time spent including discussion with nursing and family, excluding procedures: 30 minutes. Plan discussed with: Other Dietary Evaluation Review Comments: 1. Protein needs based on 1.2-1.5g/protein/kg IBW d/t low GFR 2. While being intubated, offer TF Vital HP @45ml/hr, in 24 hr, Pt will receive 94g protein, 1080lkcal 903ml free water, meeting pts needs at 97% protein and 100% energy. 3. Consider TPN to meet pt's needs if Pt does not tolerate TF well. 4. Reassess when pt extubated, advance to CCHO-60 PO diet after passing a [employer] evluation. Expected Outcomes/Goals: off intubation, advance to CCHO-60 Cardiac diet, gradual wt loss Date of Service: Jul 21, 2025 Billing Provider: ELMO NICHOLAS Cardiology Common Codes: 16057-MDRTSICU CARE 30-74 MIN ELMO NICHOLAS Jul 21, 2025 10:09
[2025-07-21] MEDS: ALBUMIN 25% 100 ML IV SCH (10:31)
[2025-07-21] MEDS: FUROSEMIDE 40 MG/4 ML VIAL IV ONE (15:04)
--- NOTE | 2025-07-21 17:11 | DVHPNRES ---
Progress Note Date Seen: Jul 21, 2025 Resident Creating Document: CYNTHIA LOVE RESIDENT Medical Necessity Reason Pt with a Central, PICC or Fol: Yes The following are medically ne: Central Line, Lau Catheter Reason for lau catheter: Strict I&O Subjective Review of Systems Patient is a 74-year-old male with past medical history of hypertension, diabetes type 2, dyslipidemia, paroxysmal atrial fibrillation, CVA in 2019, presented to the ED with chief complaints of 3 days of palpitations, shortness of breath before his admission. On arrival to the ED patient was found to have atrial fibrillation with RVR and was started on a diltiazem drip to control his heart rate. Patient progressed to have cardiac arrest secondary to ventricular arrhythmias possibly ventricular tachycardia or torsades de Pointe. Patient required CPR and ACLS maneuvers for 8 minutes followed by endotracheal intubation, obtained by ROSC. Patient was initially on amiodarone drip which was later discontinued after magnesium was given for QT prolongation. Due to clinical status obtained history of present illness and past medical history from EMR and who is at bedside. Could not obtain review of systems. Cardiology consulted for elevated troponins. Past medical history: Hypertension, dyslipidemia, diabetes, paroxysmal atrial fibrillation diagnosed in 2017 (chads Vasc 7), 2019 CVA Past surgical history: Appendectomy Family history: Two brothers had heart disease requiring CABG at the age of 40 and 50 respectively, brother had lung cancer, mother had breast cancer Social history: with . Ex tobacco abuse (eight pack-year history of smoking) quit 30 years ago. Denies current tobacco, alcohol and other drug abuse Allergies: Denies Home medication: Pradaxa 150 mg p.o. daily, atorvastatin 40 mg p.o. daily, hydrochlorothiazide 12.5 mg p.o. daily, lisinopril 20 mg p.o. daily, glipizide, metformin a 1000 mg p.o. b.i.d., metoprolol (he quit taking for four months since it made him tired). 06/30/25: Patient seen and examined at bedside. Patient is currently sedated and on mechanically ventilation, with ventilator settings at tidal volume 500, FiO2 30%, peep at 5, off of pressors phenylephrine and norepinephrine. 07/01/2025: Patient seen and examined at bedside. Patient is currently sedated and mechanically ventilated. Patient today has fever and elevated WBC, blood culture ordered. Patient is on pressor Levophed 9, patient's HR 150- 160s, order was given of metoprolol IV 5 mg with partial control of the RVR, also digoxin loading dose given. Metoprolol 25 mg PO daily was also placed for tomorrow. 07/02/2025: Patient seen and examined in ICU. Hr is under controlled. Intubated. temperature 99.3 started cefepime and vancomycin. blood culture G + bacteria. 07/03/2025 :Patient seen and examined in the ICU. Patient heart rate is under control, patient is intubated, mechanically ventilated, temperature 100.6. continue cefepime, vancomycin. Repeat blood cultures were ordered.(Staph coagulase negative, could be contaminate). Planning on performing LHC on Thursday07/05/2025, have informed . 07/04/2025: Patient seen and examined in ICU. Patient is mechanically intubated, patient had a fever yesterday night but decreased. Sputum culture showed Gram-negative rods. Discontinued cefepime. Started meropenem, 12.5 metoprolol b.i.d. Repeat blood cultures are negative. Planning on performing LHC on Thursday07/05/2025, have informed . 07/05/25: Patient seen and examined in ICU. Patient is mechanically intubated, patient had Bradycardia overnight for wich metoprlol was held. LHC was done today with 3 stents placed in the LAD. Possible RHC to be done. 07/06/2025: patient seen and examined in ICU. Patient is mechanically ventilated, had a left heart catheterization done yesterday with 3 stents placed in the LAD, Planning to do next procedure in one week to RCA. 07/07/2025: patient seen and examined in ICU. Patient is mechanically ventilated, had a left heart catheterization done yesterday with 3 stents placed in the LAD, CPAP trial done today, failed, we will try again tomorrow. 07/08/2025:patient seen and examined in ICU . on ventilator. CPAP trial failed, become tachypneic. we will try again. 07/09/2025: Patient seen and examined in ICU, on ventilator, overnight patient had AFib with RVR, so CPAP trial was deferred for today. We will try again tomorrow. discontinue metoprolol, patient's last bowel movement was on the so lactulose was given. Patient's WBC is 17.1. Cardiology following. Patient is to have a heart catheterization on Thursday. 07/10/2025: Patient seen and examined in ICU. on ventilator, no overnight events were noted. No CPAP trial until procedure on Thursday. Patient's last bowel movement was on the , senna was added, patient started on digoxin. 07/11/2025: Patient seen in examined in the ICU. patient is still on ventilator, on minimal ventilator settings, tidal volume was changed to 400. Patient has not had a bowel movement since , but abdomen soft. Patient is on fentanyl 175, propofol 24. chest ultrasound showed trace pleural effusion on the right side. Patient is to have heart catheterization tomorrow. 07/12/2025: Patient seen and examined in the ICU. patient is still on ventilator, on minimal ventilator settings, tidal volume was changed to 400. Patient underwent CALVIN, and is to undergo left heart cath today. : Patient seen and examined in ICU. Patient is still on ventilator, mineral ventilator setting, underwent left heart catheterization yesterday which was unsuccessful, cardioversion which was unsuccessful, today added metoprolol 25 mg p.o. b.i.d., PICC line to be placed, 1 pack of RBC was given. Today patient had bloody secretion from the ET tube, hematuria. Consult cardio if amiodarone can be given. 07/14/2025: Patient seen and examined in the ICU. Patient on ventilator, minimal ventilator setting, unsuccessful cardioversion, left heart catheterization, yesterday night patient's blood pressure dropped and metoprolol was changed to 12.5 mg. Hematuria has resolved, no bloody secretions from ET tube. Amnio is not to be given. 07/15/2025: Patient seen and examined in ICU. Continue pain ventilator. Trying to be off sedation. CPAP trial today. No any other new complaints 07/16/2025: Patient seen and examined in ICU. CPAP trial today. Off sedation, pressors. Lasix 20 mg was given. CPAP trial today failed, we will try again tomorrow. Patient had big bruise on right side, ordered h and h, and abdominal CT, if bleeding present hold Lovenox but not aspirin. 07/17/2025: Patient patient seen in the ICU. CPAP trial tomorrow. Patient off pressors, patient had a fever, is on Precedex 0.4. Patient today is opening his eyes, following commands, CT abdomen showed left greater than right rectus abdominis hematoma. One PRBC was given today. Held Lovenox. 07/18/25: Patient seen in ICU. CPAP trial done today failed we will try again tomorrow. Patient is off pressors, on Precedex 0.4. Patient is opening his eyes, following commands, monitor hemoglobin. Held Lovenox. Metoprolol was changed to 25 b.i.d. 07/19/25: Patient seen in ICU. CPAP trial done today and fell. Patient had a episode of bradycardia to 35 overnight. Patient has tachy sergio syndrome. Cardiology recommended pacemaker. IV meropenem was changed to IV Zosyn Q 8. Repeat sputum culture was ordered. 07/20/2025: Patient seen in ICU. CPAP trial done today. Patient is on ventilator, no pressors, no sedation. Patient had a micra leadless pacemaker placed yesterday. Discontinued vancomycin. Monitor WBC. Pacemaker was interrogated and no overnight events reported. Patient had bilateral upper extremity swelling. Upper extremity DVT was negative. Patient extubated and reintubated today. 07/21/25: Patient seen in ICU. Patient was extubated and reintubated yesterday as he could not tolerate BiPAP. WBC Is increasing today. patient has left-sided atelectasis. Which is improving. Patient is continued on mechanical ventilation. Patient pacemaker set at 50 beats per minute. CPAP trial in the morning. vacation to be done. Lasix 40 given once. 1 unit PRBC given to keep hemoglobin over 8. Objective vital signs Vital Sign Date Time Temp Pulse Resp B/P (MAP) Pulse Ox O2 Delivery O2 Flow Rate FiO2 07/21/25 16:09 56 19 126/42 (70) 99 30 07/21/25 15:35 Mechanical Ventilator+ 07/21/25 15:02 98.0 98.0 07/20/25 16:00 15 Total Intake and Output 07/20/25 07/20/25 07/21/25 15:00 23:00 07:00 Intake Total 400 ml 1023.600 ml 901.900 ml Output Total 750 ml 1750 ml Balance 400 ml 273.600 ml -848.100 ml medications Current Medications Medications Dose Ordered Sig/Jesse Route Start Time Stop Time Status Last Admin Dose Admin Atorvastatin Calcium 40 mg HS PO 06/29/25 22:00 07/20/25 22:22 40 MG Fentanyl Citrate 250 ml @ 2.5 mls/hr Q24H IV 06/29/25 06:15 07/21/25 04:42 10 MLS/HR Aspirin 81 mg DAILY PO 06/30/25 10:00 07/21/25 08:57 81 MG Insulin Human Regular HS SC 06/29/25 22:00 Cancel Insulin Human Regular AC SC 06/29/25 17:00 Cancel Pantoprazole Sodium 40 mg DAILY IV 06/30/25 10:00 07/21/25 08:54 40 MG Clopidogrel Bisulfate 75 mg DAILY PO 06/30/25 10:00 07/21/25 08:57 75 MG Diagnostic Test (Pha) 1 strip IQ4HR 06/29/25 20:00 07/21/25 16:06 1 STRIP Insulin Human Regular IQ4HR SC 06/29/25 20:00 07/21/25 16:23 2 UNITS Dextrose 50 ml UD PRN IV 06/29/25 17:30 Midazolam HCl 100 ml @ 1 mls/hr Q24H IV 06/29/25 18:00 07/21/25 00:28 3 MLS/HR Enteral Nutritional Formula 1,000 ml 45ML/HR GT 06/30/25 17:15 07/19/25 20:14 1,000 ML Acetaminophen 650 mg Q4HP PRN PO 07/01/25 17:00 07/17/25 23:56 650 MG Insulin Glargine 12 units HS SC 07/06/25 22:00 07/20/25 22:24 12 UNITS Polyethylene Glycol 17 gm DAILY PO 07/08/25 10:00 07/21/25 08:57 17 GM Propofol 100 ml @ 3.225 mls/ hr Q24H IV 07/08/25 09:45 07/21/25 09:00 6.45 MLS/HR Sennosides 8.6 mg HS PO 07/10/25 22:00 07/20/25 22:22 8.6 MG Digoxin 250 mcg DAILY IV 07/12/25 10:00 07/21/25 09:10 250 MCG Lactulose 30 ml DAILY PO 07/12/25 10:00 07/21/25 08:56 30 ML Empaglifozin 10 mg DAILY PO 07/14/25 10:00 07/21/25 08:57 10 MG Sodium Chloride 10 ml QSHIFT@10,22 IV 07/14/25 22:00 07/21/25 08:58 10 ML Norepinephrine Bitartrate 250 ml @ 3.75 mls/hr Q24H IV 07/17/25 03:15 07/20/25 17:45 3.75 MLS/HR Dextrose 1,000 ml @ 50 mls/hr Q20H IV 07/19/25 10:30 07/21/25 04:39 50 MLS/HR Piperacillin Sod/ Tazobactam Sod 100 ml @ 25 mls/hr Q8HR IV 07/19/25 22:00 07/21/25 15:03 25 MLS/HR Metoprolol Tartrate 25 mg BID PO 07/20/25 22:00 07/21/25 09:08 25 MG Labetalol HCl 10 mg Q4HP PRN IV 07/20/25 15:00 07/20/25 16:20 10 MG Albumin Human 100 ml @ 100 mls/hr Q8H IV 07/21/25 10:00 07/22/25 02:59 07/21/25 10:31 100 MLS/HR Examination General: intubated, sedated HEENT: Normocephalic, atraumatic, moist mucous membranes Respiratory/pulmonary: Clear lungs bilaterally, vesicular murmurs present in almost all lung roberts, no associated crackles or wheezes. Cardiovascular: Normal heart sounds S1 and S2 with no associated murmurs Abdomen: Abdomen nondistended, there is no pain to palpation in any of the abdominal quadrants, no palpable masses. Right flank bruise Extremities: There is no peripheral edema present at the lower extremities. Bilateral erythematous and ulcerated lesions. Skin: No rashes or pruritus, there is no sacral edema present at this time laboratory and microbiology Laboratory Tests 07/21/25 02:40 Test 07/21/25 02:40 Range/Units Serum Glucose 155 H 74-106 mg/dL Microbiology Date/Time Source Procedure Growth Status 07/20/25 17:43 Sputum Gram Stain - Final Resulted 07/20/25 17:43 Sputum Respiratory Culture - Preliminary Resulted 07/11/25 14:17 Blood Blood Culture - Final NO GROWTH AFTER 5 DAYS OF INCUBATION. Complete 07/01/25 22:35 Urine - Catheterized Urine Culture - Final Complete 06/29/25 04:30 Nose MRSA Screen - Final Complete Problem List/Assessment/Plan Problem List/Assessment/Plan Neurology Acute metabolic encephalopathy History of CVA-with residual aphasia, right-sided deficit -Sedation/neurological status: Rass score -3 - off of Levophed, phenylephrine Cardiology Cardiac arrest secondary to ventricular arrhythmia (ventricular tachycardia, torsade de pointes) NSTEMI type 1 status post PCI Newly diagnosed coronary artery disease - triple-vessel disease Prolonged QT Paroxysmal atrial fibrillation with RVR Hypertension Dyslipidemia - EKG showed atrial fibrillation with anterior T-wave inversions, prolonged QT - coronary angiography showed severe triple-vessel disease with acutely occluded circumflex status post PCI with 1 drug-eluting stent placed. -ventriculogram showed LVEF of 15% - ordered echocardiography, lvef 20%, moderate LV enlargement, severe end stage HF - avoid QT prolongation medications - Dany Vasc score 7 -currently on vasopressors Levophed, phenylephrine -severe CAD in LAD and RCA, plan to do angiography on Thursday -patient given aspirin, atorvastatin, clopidogrel - ordered 12.5 metoprolol tartrate b.i.d. - LHC done (07/05) with 3 stents placed in LAD. - Planning on new stage procedure to RCA on Thursday. Repeat echocardiogram. -failed cardioversion, left heart catheterization. - digoxin 250 mcg added, - metoprolol 12.5 mg p.o. b.i.d. added - 07/19-repeat sputum culture ordered Respiratory Acute hypoxic respiratory failure likely due to cardiac arrest Possible Aspiration Pneumonia -ventilator settings: VT 500, respiratory rate 17, FiO2 30 %, PEEP 5 -chest x-ray: Similar bilateral inferior graded opacities, likely a combination of airspace disease and pleural effusion. Genitourinary/kidney Acute kidney injury likely due to be VMN -medication: Given Lasix 20 mg once -strict I&Os -nephrotoxic drugs Endocrine Uncontrolled diabetes mellitus, HbA1c 10.6 - on insulin sliding scale Infectious Septic shock due to Aspiration pneumonia -urine culture preliminary negative -blood cultures ordered, as WBC elevated and fever present -blood culture showed positive staph coagulase negative. - repeat blood cultures negative - Respiratory culture (07/03) - Pseudomonas aeruginosa - meropenem started(07/04), (07/19) IV meropenem was changed to IV Zosyn Q 8. Discontinue vancomycin. - repeat blood cultures (07/12) were negative Transaminitis - monitor labs Obesity BMI 33.0 Lines / Tubes / Devices Airway: Intubated via ETT on 06/29 Vascular Access: Central line 06/29 Drips: Fentanyl, midazolam, norepinephrine, phenylephrine, Versed Prophylaxis / Supportive Care DVT Prophylaxis: Lovenox. GI Prophylaxis: Protonix. Goals of care discussed with the patient family for more than 29 minutes: Full code state Patient care updated to (Myrna), addressed all concerns. Critical care time spent excluding procedures 85 minutes Plan discussed with Dr. Giang and RN Plan discussed with: Spouse My Orders My Orders Orders - CYNTHIA LOVE Procedure Category Date Status Time Complete Blood Count LAB 07/22/25 Verified 04:00 Comprehensive LAB 07/22/25 Verified Metabolic Panel 04:00 Chest Xray 1 View XY 07/22/25 Logged 04:00 Abg W/ Co-Ox RT 07/22/25 Logged 04:00 Magnesium LAB 07/22/25 Verified 04:00 Dietary Evaluation Review Comments: 1. Protein needs based on 1.2-1.5g/protein/kg IBW d/t low GFR 2. While being intubated, offer TF Vital HP @45ml/hr, in 24 hr, Pt will receive 94g protein, 1080lkcal 903ml free water, meeting pts needs at 97% protein and 100% energy. 3. Consider TPN to meet pt's needs if Pt does not tolerate TF well. 4. Reassess when pt extubated, advance to CCHO-60 PO diet after passing a GLASS TOUGHENING OPERATOR evluation. Expected Outcomes/Goals: off intubation, advance to CCHO-60 Cardiac diet, gradual wt loss CYNTHIA LOVE RESIDENT Jul 21, 2025 17:11
[2025-07-21] MEDS: POTASSIUM CHL 20MEQ/100ML 100 ML IV ONE (21:45)
[2025-07-21 22:25] LABS: Base Excess 3.2 mmol/L (-2.0-3.0)
[2025-07-21 22:27] LABS: Hematocrit 29.7 % (41.0-53.0); Hemoglobin 9.4 g/dL (13.5-17.5); Mean Corpuscular Hemoglobin 27.3 pg (28.0-32.0); Mean Corpuscular Volume 85.8 fL (80.0-100.0); Nucleated Red Blood Cells % 0.7 %
[2025-07-21 22:41] LABS: Alkaline Phosphatase 84 U/L (46-116); Anion Gap 13 (5-15); BUN/Creatinine Ratio 18.8 (10.0-20.0); Blood Urea Nitrogen 19 mg/dL (9-23); Carbon Dioxide 28 mmol/L (20-31); Magnesium 2.2 mg/dL (1.6-2.6); Potassium 3.9 mmol/L (3.5-5.1); Total Protein 6.1 g/dL (5.7-8.2)
[2025-07-21 22:43] LABS: Alanine Aminotransferase 55 U/L (7-40); Albumin 3.0 g/dL (3.2-4.8); Bilirubin, Total 2.4 mg/dL (0.2-1.0); Calcium 7.8 mg/dL (8.7-10.4); Chloride 107 mmol/L (98-107); Glucose 199 mg/dL (74-106); Sodium 148 mmol/L (136-145)
--- NOTE | 2025-07-21 23:56 | RESUS ---
CODE BLUE ASSESSSMENT History of Events History of Events: Pt was admitted on 06/28 to icu with nstemi. Tonight, pt went into Sudden v fib. Code Blue called. CPR started. Pads on. Cyanotic. ACLS meds started. Shocked for v fib. See Code blue sheet. Pupils 3 and sluggish. Overbreathing. Per order, restarted versed. Fentanyl and propofol off for code blue. Rosc achieved. Initial Information Date: Jul 21, 2025 Time: 21:25 Location of Arrest: ICU (Central) Arrest Witnessed: Yes CPR started initial time: 21:25 CPR started by whom: Hospital Staff Last seen well: prior to arrest Pre-Hospital Care: ACLS Type of arrest: Cardiac, Respiratory, Adult, Witnessed Spontaneous Respirations: No Pulse Present: No Monitoring: ECG, Pulse Oximetry, Apnea, Telemetry Crash Cart Opened and Supplies: Yes Airway Ventilation Breathing at Onset: Apneic O2 Sat by Pulse Oximetry: 0 Oxygen Delivery Method: Mechanical Ventilator Oxygen 100% Time of first Assisted Ventila: 21:25 Artificial Ventilation: Bag/Endo tube Intubation Size: 8.0 cuffed Tube secured at: 24 Comments: pt was intubated previously Circulation Circulation : Time: 21:25 Pulse Rate (adult): 0 Blood Pressure Systolic: 0 Blood Pressure Diastolic: 0 Temperature (Fahrenheit): 98.6 Defibrillation Defbrillation : Time Defibrillator Applied: 21:30 EKG Rhythm: V-Fibrillation Compressions: Device Compressions Hold/Resume: 2130 Defib. Joules: 200 Pulse Present: No EKG Rhythm: Sinus Tachycardia, V-Fibrillation Procedure - IV Procedure - IV : IV Side: Right IV Location: Upper Arm Anterior IV Catheter Type: PICC Line IV Placed: In Hospital Comment previously placed. Medications & Response Medications and Responses #1: Medication Time: 21:25 ADULT Medications Given ADULT: Epinephrine 1 mg, Sodium Bacarbinate 50 meq Route of Administration: IV Heart Rate: 0 EKG Rhythm: PEA Blood Pressure Systolic: 0 Blood Pressure Diastolic: 0 Respiratory Rate: 0 O2 Sat by Pulse Oximetry: 0 EKG Rhythm: PEA Comment no pulse 2127 Medications and Responses #2: Medication Time: 21:28 ADULT Medications Given ADULT: Epinephrine 1 mg Route of Administration: IV Heart Rate: 0 EKG Rhythm: V-Fibrillation Blood Pressure Systolic: 0 Blood Pressure Diastolic: 0 Respiratory Rate: 0 O2 Sat by Pulse Oximetry: 0 EKG Rhythm: Sinus Tachycardia Comment ROSC AT 2130 after shock Pacing Pacer Pads Applied and Pacing: Yes Procedure - NG/OG Tube Procedure - NG/OG Tube : Comment PREVIOUSLY PLACED Procedure - Dlaey Catheter Comment: PREVIOUSLY PLACED Nurses Notes Susan Coma Scale Eye Opening: To Pain (2) [place] Coma Scale Verbal: None (1) Susan Coma Scale Motor: Extensor Response (2) Glascow Total: 4 Pupil Reaction: Non Reactive, ADDY Bedside Blood Glucose: 313 EKG Rhythm: Sinus Tachycardia Nurses Notes - Comment: Time Code Ended Time Code Ended: 21:31 Post Arrest Status: Ventilated Outcome of code: Successful Code Team Present: CHRISTIN EXECUTIVE VICE PRESIDENT BUSINESS DEVELOPMENT, RADHA RN HS, OFE FELTING MACHINE OPERATOR HELPER, TIFFANY RN PRIMARY, JENNIFER RT, SHIVAM RT, BARBARA RT. Post Resuscitation Neurologica Pupil Size: 3 ROSC Time of ROSC: 21:31 Pt Meets Criteria for Therapeu: No Therapeutic Hyperthermia Start: No RADHA BOJORQUEZ Jul 21, 2025 23:56
[2025-07-22] VITALS (116 sets, daily range): BP systolic 80–141; BP diastolic 28–61; PULSE 50–106; RESP 14–42; TEMP 97.9–99; O2SAT 87–100
[2025-07-22 04:35] LABS: Hematocrit 26.7 % (41.0-53.0); Hemoglobin 8.9 g/dL (13.5-17.5); Mean Corpuscular Hemoglobin 28.1 pg (28.0-32.0); Mean Corpuscular Volume 84.8 fL (80.0-100.0); Nucleated Red Blood Cells % 0.3 %
[2025-07-22 04:54] LABS: Alkaline Phosphatase 84 U/L (46-116); Anion Gap 10 (5-15); BUN/Creatinine Ratio 26.0 (10.0-20.0); Chloride 107 mmol/L (98-107); Magnesium 2.2 mg/dL (1.6-2.6); Potassium 3.9 mmol/L (3.5-5.1); Total Protein 5.8 g/dL (5.7-8.2)
[2025-07-22 04:56] LABS: Alanine Aminotransferase 50 U/L (7-40); Albumin 2.9 g/dL (3.2-4.8); Bilirubin, Total 2.2 mg/dL (0.2-1.0); Blood Urea Nitrogen 27 mg/dL (9-23); Calcium 7.8 mg/dL (8.7-10.4); Carbon Dioxide 33 mmol/L (20-31); Glucose 188 mg/dL (74-106); Sodium 150 mmol/L (136-145)
--- NOTE | 2025-07-22 05:56 | DVH ---
CHEST RADIOGRAPH Indication: on vent Technique: 1 view Comparison: XY CHEST XRAY 1 VIEW on DOS: 07/21/25, XY CHEST PORTABLE on DOS: 07/20/25, XY CHEST XRAY 1 VIEW on DOS: 07/20/25, XY CHEST XRAY 1 VIEW on DOS: 07/19/25, XY CHEST XRAY 1 VIEW on DOS: 07/18/25 FINDINGS: Lines and Tubes: Unchanged. Lungs/Pleura: Unchanged. Cardiomediastinum: Unchanged. Other: Unchanged osseous structures. IMPRESSION: No significant change from the previous study. Stable support devices. Persistent low lung volumes with bilateral mixed pulmonary opacities.
[2025-07-22 07:38] LABS: Base Excess 3.3 mmol/L (-2.0-3.0)
--- NOTE | 2025-07-22 13:16 | DVH ---
CHEST RADIOGRAPH Indication: TUBE PLACEMENT Technique: XY CHEST XRAY 1 VIEW COMPARISON: 07/22/2025 FINDINGS: Endotracheal tube tip projects 4.2 cm above the kolby. Nasogastric tube projects towards stomach. Right PICC line tip projects over the SVC. The cardiac silhouette is enlarged. The lungs demonstrate bilateral patchy airspace opacities, increased from the previous examination. The pulmonary vasculature is prominent. Moderate bilateral pleural effusions.. There is no pneumothorax. IMPRESSION: As above
--- NOTE | 2025-07-22 16:41 | DVHPNRES ---
Progress Note Date Seen: Jul 22, 2025 Resident Creating Document: NESTOR BELLA RESIDENT Medical Necessity Reason Pt with a Central, PICC or Fol: Yes The following are medically ne: Central Line, Lau Catheter Reason for lau catheter: Strict I&O Subjective Review of Systems Patient is a 74-year-old male with past medical history of hypertension, diabetes type 2, dyslipidemia, paroxysmal atrial fibrillation, CVA in 2019, presented to the ED with chief complaints of 3 days of palpitations, shortness of breath before his admission. On arrival to the ED patient was found to have atrial fibrillation with RVR and was started on a diltiazem drip to control his heart rate. Patient progressed to have cardiac arrest secondary to ventricular arrhythmias possibly ventricular tachycardia or torsades de Pointe. Patient required CPR and ACLS maneuvers for 8 minutes followed by endotracheal intubation, obtained by ROSC. Patient was initially on amiodarone drip which was later discontinued after magnesium was given for QT prolongation. Due to clinical status obtained history of present illness and past medical history from EMR and who is at bedside. Could not obtain review of systems. Cardiology consulted for elevated troponins. Past medical history: Hypertension, dyslipidemia, diabetes, paroxysmal atrial fibrillation diagnosed in 2017 (chads Vasc 7), 2019 CVA Past surgical history: Appendectomy Family history: Two brothers had heart disease requiring CABG at the age of 40 and 50 respectively, brother had lung cancer, mother had breast cancer Social history: with . Ex tobacco abuse (eight pack-year history of smoking) quit 30 years ago. Denies current tobacco, alcohol and other drug abuse Allergies: Denies Home medication: Pradaxa 150 mg p.o. daily, atorvastatin 40 mg p.o. daily, hydrochlorothiazide 12.5 mg p.o. daily, lisinopril 20 mg p.o. daily, glipizide, metformin a 1000 mg p.o. b.i.d., metoprolol (he quit taking for four months since it made him tired). 06/30/25: Patient seen and examined at bedside. Patient is currently sedated and on mechanically ventilation, with ventilator settings at tidal volume 500, FiO2 30%, peep at 5, off of pressors phenylephrine and norepinephrine. 07/01/2025: Patient seen and examined at bedside. Patient is currently sedated and mechanically ventilated. Patient today has fever and elevated WBC, blood culture ordered. Patient is on pressor Levophed 9, patient's HR 150- 160s, order was given of metoprolol IV 5 mg with partial control of the RVR, also digoxin loading dose given. Metoprolol 25 mg PO daily was also placed for tomorrow. 07/02/2025: Patient seen and examined in ICU. Hr is under controlled. Intubated. temperature 99.3 started cefepime and vancomycin. blood culture G + bacteria. 07/03/2025 :Patient seen and examined in the ICU. Patient heart rate is under control, patient is intubated, mechanically ventilated, temperature 100.6. continue cefepime, vancomycin. Repeat blood cultures were ordered.(Staph coagulase negative, could be contaminate). Planning on performing LHC on Thursday07/05/2025, have informed . 07/04/2025: Patient seen and examined in ICU. Patient is mechanically intubated, patient had a fever yesterday night but decreased. Sputum culture showed Gram-negative rods. Discontinued cefepime. Started meropenem, 12.5 metoprolol b.i.d. Repeat blood cultures are negative. Planning on performing LHC on Thursday07/05/2025, have informed . 07/05/25: Patient seen and examined in ICU. Patient is mechanically intubated, patient had Bradycardia overnight for wich metoprlol was held. LHC was done today with 3 stents placed in the LAD. Possible RHC to be done. 07/06/2025: patient seen and examined in ICU. Patient is mechanically ventilated, had a left heart catheterization done yesterday with 3 stents placed in the LAD, Planning to do next procedure in one week to RCA. 07/07/2025: patient seen and examined in ICU. Patient is mechanically ventilated, had a left heart catheterization done yesterday with 3 stents placed in the LAD, CPAP trial done today, failed, we will try again tomorrow. 07/08/2025:patient seen and examined in ICU . on ventilator. CPAP trial failed, become tachypneic. we will try again. 07/09/2025: Patient seen and examined in ICU, on ventilator, overnight patient had AFib with RVR, so CPAP trial was deferred for today. We will try again tomorrow. discontinue metoprolol, patient's last bowel movement was on the so lactulose was given. Patient's WBC is 17.1. Cardiology following. Patient is to have a heart catheterization on Thursday. 07/10/2025: Patient seen and examined in ICU. on ventilator, no overnight events were noted. No CPAP trial until procedure on Thursday. Patient's last bowel movement was on the , senna was added, patient started on digoxin. 07/11/2025: Patient seen in examined in the ICU. patient is still on ventilator, on minimal ventilator settings, tidal volume was changed to 400. Patient has not had a bowel movement since , but abdomen soft. Patient is on fentanyl 175, propofol 24. chest ultrasound showed trace pleural effusion on the right side. Patient is to have heart catheterization tomorrow. 07/12/2025: Patient seen and examined in the ICU. patient is still on ventilator, on minimal ventilator settings, tidal volume was changed to 400. Patient underwent CALVIN, and is to undergo left heart cath today. : Patient seen and examined in ICU. Patient is still on ventilator, mineral ventilator setting, underwent left heart catheterization yesterday which was unsuccessful, cardioversion which was unsuccessful, today added metoprolol 25 mg p.o. b.i.d., PICC line to be placed, 1 pack of RBC was given. Today patient had bloody secretion from the ET tube, hematuria. Consult cardio if amiodarone can be given. 07/14/2025: Patient seen and examined in the ICU. Patient on ventilator, minimal ventilator setting, unsuccessful cardioversion, left heart catheterization, yesterday night patient's blood pressure dropped and metoprolol was changed to 12.5 mg. Hematuria has resolved, no bloody secretions from ET tube. Amnio is not to be given. 07/15/2025: Patient seen and examined in ICU. Continue pain ventilator. Trying to be off sedation. CPAP trial today. No any other new complaints 07/16/2025: Patient seen and examined in ICU. CPAP trial today. Off sedation, pressors. Lasix 20 mg was given. CPAP trial today failed, we will try again tomorrow. Patient had big bruise on right side, ordered h and h, and abdominal CT, if bleeding present hold Lovenox but not aspirin. 07/17/2025: Patient patient seen in the ICU. CPAP trial tomorrow. Patient off pressors, patient had a fever, is on Precedex 0.4. Patient today is opening his eyes, following commands, CT abdomen showed left greater than right rectus abdominis hematoma. One PRBC was given today. Held Lovenox. 07/18/25: Patient seen in ICU. CPAP trial done today failed we will try again tomorrow. Patient is off pressors, on Precedex 0.4. Patient is opening his eyes, following commands, monitor hemoglobin. Held Lovenox. Metoprolol was changed to 25 b.i.d. 07/19/25: Patient seen in ICU. CPAP trial done today and fell. Patient had a episode of bradycardia to 35 overnight. Patient has tachy sergio syndrome. Cardiology recommended pacemaker. IV meropenem was changed to IV Zosyn Q 8. Repeat sputum culture was ordered. 07/20/2025: Patient seen in ICU. CPAP trial done today. Patient is on ventilator, no pressors, no sedation. Patient had a micra leadless pacemaker placed yesterday. Discontinued vancomycin. Monitor WBC. Pacemaker was interrogated and no overnight events reported. Patient had bilateral upper extremity swelling. Upper extremity DVT was negative. Patient extubated and reintubated today. 07/21/25: Patient seen in ICU. Patient was extubated and reintubated yesterday as he could not tolerate BiPAP. WBC Is increasing today. patient has left-sided atelectasis. Which is improving. Patient is continued on mechanical ventilation. Patient pacemaker set at 50 beats per minute. CPAP trial in the morning. vacation to be done. Lasix 40 given once. 1 unit PRBC given to keep hemoglobin over 8. 07/22/25 : pt had code blue last night. got ROSC. tele showed polymorph. No plan for CPAP today. will reassess tomorrow. stopped D5W, started free water. Objective vital signs Vital Sign Date Time Temp Pulse Resp B/P (MAP) Pulse Ox O2 Delivery O2 Flow Rate FiO2 07/22/25 15:46 100/58 07/22/25 14:50 65 20 98 60 07/22/25 10:00 Mechanical Ventilator+ 07/22/25 06:32 209.5 07/20/25 16:00 15 Total Intake and Output 07/21/25 07/21/25 07/22/25 15:00 23:00 07:00 Intake Total 870.300 ml 1137.975 ml 654.775 ml Output Total 2000 ml 904 ml Balance 870.300 ml -862.025 ml -249.225 ml medications Current Medications Medications Dose Ordered Sig/Jesse Route Start Time Stop Time Status Last Admin Dose Admin Atorvastatin Calcium 40 mg HS PO 06/29/25 22:00 07/21/25 23:02 40 MG Fentanyl Citrate 250 ml @ 2.5 mls/hr Q24H IV 06/29/25 06:15 07/22/25 04:58 12.5 MLS/HR Aspirin 81 mg DAILY PO 06/30/25 10:00 07/22/25 09:10 81 MG Insulin Human Regular HS SC 06/29/25 22:00 Cancel Insulin Human Regular AC SC 06/29/25 17:00 Cancel Pantoprazole Sodium 40 mg DAILY IV 06/30/25 10:00 07/22/25 09:09 40 MG Clopidogrel Bisulfate 75 mg DAILY PO 06/30/25 10:00 07/22/25 09:09 75 MG Diagnostic Test (Pha) 1 strip IQ4HR 06/29/25 20:00 07/22/25 08:39 1 STRIP Insulin Human Regular IQ4HR SC 06/29/25 20:00 07/22/25 12:22 3 UNITS Dextrose 50 ml UD PRN IV 06/29/25 17:30 Midazolam HCl 100 ml @ 1 mls/hr Q24H IV 06/29/25 18:00 07/22/25 03:59 2 MLS/HR Enteral Nutritional Formula 1,000 ml 45ML/HR GT 06/30/25 17:15 07/19/25 20:14 1,000 ML Acetaminophen 650 mg Q4HP PRN PO 07/01/25 17:00 07/17/25 23:56 650 MG Insulin Glargine 12 units HS SC 07/06/25 22:00 07/20/25 22:24 12 UNITS Polyethylene Glycol 17 gm DAILY PO 07/08/25 10:00 07/21/25 08:57 17 GM Propofol 100 ml @ 3.225 mls/ hr Q24H IV 07/08/25 09:45 07/22/25 15:46 3.225 MLS/HR Sennosides 8.6 mg HS PO 07/10/25 22:00 07/21/25 23:02 8.6 MG Digoxin 250 mcg DAILY IV 07/12/25 10:00 07/21/25 09:10 250 MCG Lactulose 30 ml DAILY PO 07/12/25 10:00 07/21/25 08:56 30 ML Empaglifozin 10 mg DAILY PO 07/14/25 10:00 07/22/25 09:09 10 MG Sodium Chloride 10 ml QSHIFT@10,22 IV 07/14/25 22:00 07/22/25 09:09 10 ML Norepinephrine Bitartrate 250 ml @ 3.75 mls/hr Q24H IV 07/17/25 03:15 07/20/25 17:45 3.75 MLS/HR Dextrose 1,000 ml @ 50 mls/hr Q20H IV 07/19/25 10:30 07/22/25 04:00 50 MLS/HR Piperacillin Sod/ Tazobactam Sod 100 ml @ 25 mls/hr Q8HR IV 07/19/25 22:00 07/22/25 14:21 25 MLS/HR Metoprolol Tartrate 25 mg BID PO 07/20/25 22:00 07/22/25 09:10 25 MG Labetalol HCl 10 mg Q4HP PRN IV 07/20/25 15:00 07/20/25 16:20 10 MG Examination General: intubated, sedated HEENT: Normocephalic, atraumatic, moist mucous membranes Respiratory/pulmonary: Clear lungs bilaterally, vesicular murmurs present in almost all lung roberts, no associated crackles or wheezes. Cardiovascular: Normal heart sounds S1 and S2 with no associated murmurs Abdomen: Abdomen nondistended, there is no pain to palpation in any of the abdominal quadrants, no palpable masses. Right flank bruise Extremities: There is no peripheral edema present at the lower extremities. Bilateral erythematous and ulcerated lesions. Skin: No rashes or pruritus, there is no sacral edema present at this time laboratory and microbiology Laboratory Tests 07/22/25 03:10 Test 07/22/25 03:10 Range/Units Serum Glucose 188 H 74-106 mg/dL Microbiology Date/Time Source Procedure Growth Status 07/20/25 17:43 Sputum Gram Stain - Final Resulted 07/20/25 17:43 Sputum Respiratory Culture - Preliminary Resulted 07/11/25 14:17 Blood Blood Culture - Final NO GROWTH AFTER 5 DAYS OF INCUBATION. Complete 07/01/25 22:35 Urine - Catheterized Urine Culture - Final Complete 06/29/25 04:30 Nose MRSA Screen - Final Complete Labs and/or images reviewed: Labs reviewed by me, Image(s) reviewed by me Problem List/Assessment/Plan Problem List/Assessment/Plan Assessment and Plan Neurology Acute metabolic encephalopathy History of CVA-with residual aphasia, right-sided deficit -Sedation/neurological status: Rass score -3 - off of Levophed, phenylephrine Cardiology Cardiac arrest secondary to ventricular arrhythmia (ventricular tachycardia, torsade de pointes) 2nd Cardiac arrest due to poly morph tachycardia NSTEMI type 1 status post PCI Newly diagnosed coronary artery disease - triple-vessel disease Prolonged QT Paroxysmal atrial fibrillation with RVR Hypertension Dyslipidemia - EKG showed atrial fibrillation with anterior T-wave inversions, prolonged QT - coronary angiography showed severe triple-vessel disease with acutely occluded circumflex status post PCI with 1 drug-eluting stent placed. -ventriculogram showed LVEF of 15% - ordered echocardiography, lvef 20%, moderate LV enlargement, severe end stage HF - avoid QT prolongation medications - Dany Vasc score 7 -currently on vasopressors Levophed, phenylephrine -severe CAD in LAD and RCA, plan to do angiography on Thursday -patient given aspirin, atorvastatin, clopidogrel - ordered 12.5 metoprolol tartrate b.i.d. - LHC done (07/05) with 3 stents placed in LAD. - Planning on new stage procedure to RCA on Thursday. Repeat echocardiogram. -failed cardioversion, left heart catheterization. - digoxin 250 mcg added, - metoprolol 12.5 mg p.o. b.i.d. added - 07/19-repeat sputum culture ordered Respiratory Acute hypoxic respiratory failure likely due to cardiac arrest Possible Aspiration Pneumonia -ventilator settings: VT 500, respiratory rate 17, FiO2 30 %, PEEP 5 -chest x-ray: Similar bilateral inferior graded opacities, likely a combination of airspace disease and pleural effusion. reintubated Genitourinary/kidney Acute kidney injury likely due to be VMN -medication: Given Lasix 20 mg once -strict I&Os -nephrotoxic drugs Endocrine Uncontrolled diabetes mellitus, HbA1c 10.6 - on insulin sliding scale Infectious Septic shock due to Aspiration pneumonia -urine culture preliminary negative -blood cultures ordered, as WBC elevated and fever present -blood culture showed positive staph coagulase negative. - repeat blood cultures negative - Respiratory culture (07/03) - Pseudomonas aeruginosa - meropenem started(07/04), (07/19) IV meropenem was changed to IV Zosyn Q 8. Discontinue vancomycin. - repeat blood cultures (07/12) were negative Transaminitis - monitor labs Obesity BMI 33.0 Lines / Tubes / Devices Airway: Intubated via ETT on 06/29, extubated 07/20/25 reintubated the same dayh Vascular Access: Central line 06/29 Drips: Fentanyl, midazolam, norepinephrine, phenylephrine, Versed Prophylaxis / Supportive Care GI Prophylaxis: Protonix. 07/22/25: pt had code blue last night ( Vfib). got ROSC. Telemetry showed polymorph Vtach. No plan for CPAP today. will reassess tomorrow. stopped D5W, started free water. Goals of care discussed with the patient family for more than 29 minutes: Full code state Patient care updated to (Myrna), addressed all concerns. Critical care time spent excluding procedures 77 minutes Plan discussed with Dr. Ybarra Plan discussed with: Patient, Other My Orders My Orders Orders - NESTOR BELLA RESIDENT Procedure Category Date Status Time Chest Xray 1 View XY 07/22/25 Resulted 12:34 Dietary Evaluation Review Comments: 1. Protein needs based on 1.2-1.5g/protein/kg IBW d/t low GFR 2. While being intubated, offer TF Vital HP @45ml/hr, in 24 hr, Pt will receive 94g protein, 1080lkcal 903ml free water, meeting pts needs at 97% protein and 100% energy. 3. Consider TPN to meet pt's needs if Pt does not tolerate TF well. 4. Reassess when pt extubated, advance to CCHO-60 PO diet after passing a HOUSE COORDINATOR evluation. Expected Outcomes/Goals: off intubation, advance to CCHO-60 Cardiac diet, gradual wt loss NESTOR BELLA RESIDENT Jul 22, 2025 16:41
[2025-07-22] MEDS: FREE WATER GT SCH (18:23)
[2025-07-22] MEDS: POTASSIUM CHL 20MEQ/100ML 100 ML IV ONE (20:07)
[2025-07-23] VITALS (111 sets, daily range): BP systolic 73–140; BP diastolic 25–69; PULSE 50–96; RESP 11–23; TEMP 97.4–98.4; O2SAT 95–100
[2025-07-23 04:33] LABS: Hematocrit 27.6 % (41.0-53.0); Hemoglobin 8.9 g/dL (13.5-17.5); Mean Corpuscular Hemoglobin 27.8 pg (28.0-32.0); Mean Corpuscular Volume 86.1 fL (80.0-100.0); Nucleated Red Blood Cells % 0.4 %
[2025-07-23 04:54] LABS: Alanine Aminotransferase 37 U/L (7-40); Alkaline Phosphatase 86 U/L (46-116); Anion Gap 9 (5-15); Chloride 106 mmol/L (98-107); Potassium 3.8 mmol/L (3.5-5.1)
[2025-07-23 04:55] LABS: BUN/Creatinine Ratio 25.6 (10.0-20.0); Blood Urea Nitrogen 23 mg/dL (9-23); Magnesium 2.3 mg/dL (1.6-2.6)
[2025-07-23 04:56] LABS: Calcium 7.6 mg/dL (8.7-10.4); Carbon Dioxide 33 mmol/L (20-31); Glucose 136 mg/dL (74-106); Sodium 148 mmol/L (136-145); Total Protein 5.6 g/dL (5.7-8.2)
[2025-07-23 04:59] LABS: Albumin 2.8 g/dL (3.2-4.8); Bilirubin, Total 2.2 mg/dL (0.2-1.0)
--- NOTE | 2025-07-23 05:54 | DVH ---
CHEST RADIOGRAPH Indication: mech vent Technique: 1 view Comparison: XY CHEST XRAY 1 VIEW on DOS: 07/22/25, XY CHEST XRAY 1 VIEW on DOS: 07/22/25, XY CHEST XRAY 1 VIEW on DOS: 07/21/25, XY CHEST PORTABLE on DOS: 07/20/25, XY CHEST XRAY 1 VIEW on DOS: 07/20/25 FINDINGS: Lines and Tubes: Unchanged. Lungs/Pleura: Unchanged. Cardiomediastinum: Unchanged. Other: Unchanged osseous structures. IMPRESSION: 1. No significant change from the previous study. Stable support devices. Persistent bilateral mixed mid to basilar pulmonary opacities and pleural effusions.
[2025-07-23 06:47] LABS: Base Excess 4.6 mmol/L (-2.0-3.0)
--- NOTE | 2025-07-23 13:28 | DVHPNRES ---
Progress Note Date Seen: Jul 23, 2025 Resident Creating Document: CYNTHIA LOVE RESIDENT Medical Necessity Reason Pt with a Central, PICC or Fol: Yes The following are medically ne: Central Line, Lau Catheter Reason for lau catheter: Strict I&O Subjective Review of Systems Patient is a 74-year-old male with past medical history of hypertension, diabetes type 2, dyslipidemia, paroxysmal atrial fibrillation, CVA in 2019, presented to the ED with chief complaints of 3 days of palpitations, shortness of breath before his admission. On arrival to the ED patient was found to have atrial fibrillation with RVR and was started on a diltiazem drip to control his heart rate. Patient progressed to have cardiac arrest secondary to ventricular arrhythmias possibly ventricular tachycardia or torsades de Pointe. Patient required CPR and ACLS maneuvers for 8 minutes followed by endotracheal intubation, obtained by ROSC. Patient was initially on amiodarone drip which was later discontinued after magnesium was given for QT prolongation. Due to clinical status obtained history of present illness and past medical history from EMR and who is at bedside. Could not obtain review of systems. Cardiology consulted for elevated troponins. Past medical history: Hypertension, dyslipidemia, diabetes, paroxysmal atrial fibrillation diagnosed in 2017 (chads Vasc 7), 2019 CVA Past surgical history: Appendectomy Family history: Two brothers had heart disease requiring CABG at the age of 40 and 50 respectively, brother had lung cancer, mother had breast cancer Social history: with . Ex tobacco abuse (eight pack-year history of smoking) quit 30 years ago. Denies current tobacco, alcohol and other drug abuse Allergies: Denies Home medication: Pradaxa 150 mg p.o. daily, atorvastatin 40 mg p.o. daily, hydrochlorothiazide 12.5 mg p.o. daily, lisinopril 20 mg p.o. daily, glipizide, metformin a 1000 mg p.o. b.i.d., metoprolol (he quit taking for four months since it made him tired). 06/30/25: Patient seen and examined at bedside. Patient is currently sedated and on mechanically ventilation, with ventilator settings at tidal volume 500, FiO2 30%, peep at 5, off of pressors phenylephrine and norepinephrine. 07/01/2025: Patient seen and examined at bedside. Patient is currently sedated and mechanically ventilated. Patient today has fever and elevated WBC, blood culture ordered. Patient is on pressor Levophed 9, patient's HR 150- 160s, order was given of metoprolol IV 5 mg with partial control of the RVR, also digoxin loading dose given. Metoprolol 25 mg PO daily was also placed for tomorrow. 07/02/2025: Patient seen and examined in ICU. Hr is under controlled. Intubated. temperature 99.3 started cefepime and vancomycin. blood culture G + bacteria. 07/03/2025 :Patient seen and examined in the ICU. Patient heart rate is under control, patient is intubated, mechanically ventilated, temperature 100.6. continue cefepime, vancomycin. Repeat blood cultures were ordered.(Staph coagulase negative, could be contaminate). Planning on performing LHC on Thursday07/05/2025, have informed . 07/04/2025: Patient seen and examined in ICU. Patient is mechanically intubated, patient had a fever yesterday night but decreased. Sputum culture showed Gram-negative rods. Discontinued cefepime. Started meropenem, 12.5 metoprolol b.i.d. Repeat blood cultures are negative. Planning on performing LHC on Thursday07/05/2025, have informed . 07/05/25: Patient seen and examined in ICU. Patient is mechanically intubated, patient had Bradycardia overnight for wich metoprlol was held. LHC was done today with 3 stents placed in the LAD. Possible RHC to be done. 07/06/2025: patient seen and examined in ICU. Patient is mechanically ventilated, had a left heart catheterization done yesterday with 3 stents placed in the LAD, Planning to do next procedure in one week to RCA. 07/07/2025: patient seen and examined in ICU. Patient is mechanically ventilated, had a left heart catheterization done yesterday with 3 stents placed in the LAD, CPAP trial done today, failed, we will try again tomorrow. 07/08/2025:patient seen and examined in ICU . on ventilator. CPAP trial failed, become tachypneic. we will try again. 07/09/2025: Patient seen and examined in ICU, on ventilator, overnight patient had AFib with RVR, so CPAP trial was deferred for today. We will try again tomorrow. discontinue metoprolol, patient's last bowel movement was on the so lactulose was given. Patient's WBC is 17.1. Cardiology following. Patient is to have a heart catheterization on Thursday. 07/10/2025: Patient seen and examined in ICU. on ventilator, no overnight events were noted. No CPAP trial until procedure on Thursday. Patient's last bowel movement was on the , senna was added, patient started on digoxin. 07/11/2025: Patient seen in examined in the ICU. patient is still on ventilator, on minimal ventilator settings, tidal volume was changed to 400. Patient has not had a bowel movement since , but abdomen soft. Patient is on fentanyl 175, propofol 24. chest ultrasound showed trace pleural effusion on the right side. Patient is to have heart catheterization tomorrow. 07/12/2025: Patient seen and examined in the ICU. patient is still on ventilator, on minimal ventilator settings, tidal volume was changed to 400. Patient underwent CALVIN, and is to undergo left heart cath today. : Patient seen and examined in ICU. Patient is still on ventilator, mineral ventilator setting, underwent left heart catheterization yesterday which was unsuccessful, cardioversion which was unsuccessful, today added metoprolol 25 mg p.o. b.i.d., PICC line to be placed, 1 pack of RBC was given. Today patient had bloody secretion from the ET tube, hematuria. Consult cardio if amiodarone can be given. 07/14/2025: Patient seen and examined in the ICU. Patient on ventilator, minimal ventilator setting, unsuccessful cardioversion, left heart catheterization, yesterday night patient's blood pressure dropped and metoprolol was changed to 12.5 mg. Hematuria has resolved, no bloody secretions from ET tube. Amnio is not to be given. 07/15/2025: Patient seen and examined in ICU. Continue pain ventilator. Trying to be off sedation. CPAP trial today. No any other new complaints 07/16/2025: Patient seen and examined in ICU. CPAP trial today. Off sedation, pressors. Lasix 20 mg was given. CPAP trial today failed, we will try again tomorrow. Patient had big bruise on right side, ordered h and h, and abdominal CT, if bleeding present hold Lovenox but not aspirin. 07/17/2025: Patient patient seen in the ICU. CPAP trial tomorrow. Patient off pressors, patient had a fever, is on Precedex 0.4. Patient today is opening his eyes, following commands, CT abdomen showed left greater than right rectus abdominis hematoma. One PRBC was given today. Held Lovenox. 07/18/25: Patient seen in ICU. CPAP trial done today failed we will try again tomorrow. Patient is off pressors, on Precedex 0.4. Patient is opening his eyes, following commands, monitor hemoglobin. Held Lovenox. Metoprolol was changed to 25 b.i.d. 07/19/25: Patient seen in ICU. CPAP trial done today and fell. Patient had a episode of bradycardia to 35 overnight. Patient has tachy sergio syndrome. Cardiology recommended pacemaker. IV meropenem was changed to IV Zosyn Q 8. Repeat sputum culture was ordered. 07/20/2025: Patient seen in ICU. CPAP trial done today. Patient is on ventilator, no pressors, no sedation. Patient had a micra leadless pacemaker placed yesterday. Discontinued vancomycin. Monitor WBC. Pacemaker was interrogated and no overnight events reported. Patient had bilateral upper extremity swelling. Upper extremity DVT was negative. Patient extubated and reintubated today. 07/21/25: Patient seen in ICU. Patient was extubated and reintubated yesterday as he could not tolerate BiPAP. WBC Is increasing today. patient has left-sided atelectasis. Which is improving. Patient is continued on mechanical ventilation. Patient pacemaker set at 50 beats per minute. CPAP trial in the morning. vacation to be done. Lasix 40 given once. 1 unit PRBC given to keep hemoglobin over 8. 07/22/25 : pt had code blue last night. got ROSC. tele showed polymorph. No plan for CPAP today. will reassess tomorrow. stopped D5W, started free water. 07/23/2025: Patient seen in ICU. Patient's digoxin level was 1.5 today. Patient coded Thursday night, had V-tach. Possible tracheostomy to be done after discussion with . Objective vital signs Vital Sign Date Time Temp Pulse Resp B/P (MAP) Pulse Ox O2 Delivery O2 Flow Rate FiO2 07/23/25 11:28 79 18 118/45 (69) 100 35 07/23/25 10:00 Mechanical Ventilator+ 07/23/25 08:00 97.4 97.4 Total Intake and Output 07/22/25 07/22/25 07/23/25 15:00 23:00 07:00 Intake Total 224.5 ml 892.25 ml Output Total 500 ml 625 ml Balance -275.5 ml 267.25 ml medications Current Medications Medications Dose Ordered Sig/Jesse Route Start Time Stop Time Status Last Admin Dose Admin Atorvastatin Calcium 40 mg HS PO 06/29/25 22:00 07/22/25 22:00 40 MG Fentanyl Citrate 250 ml @ 2.5 mls/hr Q24H IV 06/29/25 06:15 07/22/25 23:56 12.5 MLS/HR Aspirin 81 mg DAILY PO 06/30/25 10:00 07/23/25 09:05 81 MG Insulin Human Regular HS SC 06/29/25 22:00 Cancel Insulin Human Regular AC SC 06/29/25 17:00 Cancel Pantoprazole Sodium 40 mg DAILY IV 06/30/25 10:00 07/23/25 09:03 40 MG Clopidogrel Bisulfate 75 mg DAILY PO 06/30/25 10:00 07/23/25 09:05 75 MG Diagnostic Test (Pha) 1 strip IQ4HR 06/29/25 20:00 07/23/25 12:00 1 STRIP Insulin Human Regular IQ4HR SC 06/29/25 20:00 07/23/25 12:34 3 UNITS Dextrose 50 ml UD PRN IV 06/29/25 17:30 Midazolam HCl 100 ml @ 1 mls/hr Q24H IV 06/29/25 18:00 07/22/25 03:59 2 MLS/HR Enteral Nutritional Formula 1,000 ml 45ML/HR GT 06/30/25 17:15 07/19/25 20:14 1,000 ML Acetaminophen 650 mg Q4HP PRN PO 07/01/25 17:00 07/17/25 23:56 650 MG Insulin Glargine 12 units HS SC 07/06/25 22:00 07/22/25 22:01 12 UNITS Polyethylene Glycol 17 gm DAILY PO 07/08/25 10:00 07/23/25 09:04 17 GM Propofol 100 ml @ 3.225 mls/ hr Q24H IV 07/08/25 09:45 07/23/25 04:11 6.45 MLS/HR Sennosides 8.6 mg HS PO 07/10/25 22:00 07/22/25 22:00 8.6 MG Digoxin 250 mcg DAILY IV 07/12/25 10:00 07/23/25 09:04 250 MCG Lactulose 30 ml DAILY PO 07/12/25 10:00 07/23/25 09:03 30 ML Empaglifozin 10 mg DAILY PO 07/14/25 10:00 07/23/25 09:04 10 MG Sodium Chloride 10 ml QSHIFT@10,22 IV 07/14/25 22:00 07/23/25 10:21 10 ML Norepinephrine Bitartrate 250 ml @ 3.75 mls/hr Q24H IV 07/17/25 03:15 07/20/25 17:45 3.75 MLS/HR Piperacillin Sod/ Tazobactam Sod 100 ml @ 25 mls/hr Q8HR IV 07/19/25 22:00 07/23/25 05:45 25 MLS/HR Metoprolol Tartrate 25 mg BID PO 07/20/25 22:00 07/23/25 09:06 25 MG Labetalol HCl 10 mg Q4HP PRN IV 07/20/25 15:00 07/20/25 16:20 10 MG Purified Water 200 ml Q6HR GT 07/22/25 18:00 07/23/25 12:00 200 ML Examination General: intubated, sedated HEENT: Normocephalic, atraumatic, moist mucous membranes Respiratory/pulmonary: Clear lungs bilaterally, vesicular murmurs present in almost all lung roberts, no associated crackles or wheezes. Cardiovascular: Normal heart sounds S1 and S2 with no associated murmurs Abdomen: Abdomen nondistended, there is no pain to palpation in any of the abdominal quadrants, no palpable masses. Right flank bruise Extremities: There is no peripheral edema present at the lower extremities. Bilateral erythematous and ulcerated lesions. Skin: No rashes or pruritus, there is no sacral edema present at this time laboratory and microbiology Laboratory Tests 07/23/25 02:50 Test 07/23/25 02:50 Range/Units Serum Glucose 136 H 74-106 mg/dL Microbiology Date/Time Source Procedure Growth Status 07/20/25 17:43 Sputum Gram Stain - Final Resulted 07/20/25 17:43 Sputum Respiratory Culture - Preliminary Resulted 07/11/25 14:17 Blood Blood Culture - Final NO GROWTH AFTER 5 DAYS OF INCUBATION. Complete 07/01/25 22:35 Urine - Catheterized Urine Culture - Final Complete 06/29/25 04:30 Nose MRSA Screen - Final Complete Problem List/Assessment/Plan Problem List/Assessment/Plan Neurology Acute metabolic encephalopathy History of CVA-with residual aphasia, right-sided deficit -Sedation/neurological status: Rass score -3 - off of Levophed, phenylephrine Cardiology Cardiac arrest secondary to ventricular arrhythmia (ventricular tachycardia, torsade de pointes) NSTEMI type 1 status post PCI Newly diagnosed coronary artery disease - triple-vessel disease Prolonged QT Paroxysmal atrial fibrillation with RVR Hypertension Dyslipidemia - EKG showed atrial fibrillation with anterior T-wave inversions, prolonged QT - coronary angiography showed severe triple-vessel disease with acutely occluded circumflex status post PCI with 1 drug-eluting stent placed. -ventriculogram showed LVEF of 15% - ordered echocardiography, lvef 20%, moderate LV enlargement, severe end stage HF - avoid QT prolongation medications - Dany Vasc score 7 -currently on vasopressors Levophed, phenylephrine -severe CAD in LAD and RCA, plan to do angiography on Thursday -patient given aspirin, atorvastatin, clopidogrel - ordered 12.5 metoprolol tartrate b.i.d. - C done (07/05) with 3 stents placed in LAD. - Planning on new stage procedure to RCA on Thursday. Repeat echocardiogram. -failed cardioversion, left heart catheterization. - digoxin 250 mcg added, - metoprolol 12.5 mg p.o. b.i.d. added - micra leadless pacemaker placed. Respiratory Acute hypoxic respiratory failure likely due to cardiac arrest Possible Aspiration Pneumonia -ventilator settings: VT 500, respiratory rate 17, FiO2 30 %, PEEP 5 -chest x-ray: Similar bilateral inferior graded opacities, likely a combination of airspace disease and pleural effusion. - 07/19-repeat sputum culture ordered Genitourinary/kidney Acute kidney injury likely due to be VMN -medication: Given Lasix 20 mg once -strict I&Os -nephrotoxic drugs Endocrine Uncontrolled diabetes mellitus, HbA1c 10.6 - on insulin sliding scale Infectious Septic shock due to Aspiration pneumonia -urine culture preliminary negative -blood cultures ordered, as WBC elevated and fever present -blood culture showed positive staph coagulase negative. - repeat blood cultures negative - Respiratory culture (07/03) - Pseudomonas aeruginosa - meropenem started(07/04), (07/19) IV meropenem was changed to IV Zosyn Q 8. Discontinue vancomycin. - repeat blood cultures (07/12) were negative Transaminitis - monitor labs Obesity BMI 33.0 Lines / Tubes / Devices Airway: Intubated via ETT on 06/29. RE intubated on 07/21. Vascular Access: Central line 06/29 Drips: Fentanyl, midazolam, norepinephrine, phenylephrine, Versed Prophylaxis / Supportive Care DVT Prophylaxis: Lovenox. GI Prophylaxis: Protonix. Goals of care discussed with the patient family for more than 29 minutes: Full code state Patient care updated to (Myrna), addressed all concerns. Critical care time spent excluding procedures 85 minutes Plan discussed with Dr. Giang and RN Plan discussed with: Spouse Dietary Evaluation Review Comments: 1. Protein needs based on 1.2-1.5g/protein/kg IBW d/t low GFR 2. While being intubated, offer TF Vital HP @45ml/hr, in 24 hr, Pt will receive 94g protein, 1080lkcal 903ml free water, meeting pts needs at 97% protein and 100% energy. 3. Consider TPN to meet pt's needs if Pt does not tolerate TF well. 4. Reassess when pt extubated, advance to CCHO-60 PO diet after passing a [employer]ING [employer]INE[employer] evluation. Expected Outcomes/Goals: off intubation, advance to CCHO-60 Cardiac diet, gradual wt loss CYNTHIA LOVE RESIDENT Jul 23, 2025 13:28
--- NOTE | 2025-07-23 19:00 | DVHINCON2 ---
Date of service: Jul 23, 2025 Allergies: Coded Allergies: NO KNOWN ALLERGIES (Unverified , 06/28/25) Current Medications Current Medications Medications (Trade) Dose Ordered Sig/Jesse Route PRN Reason Start Time Stop Time Status Last Admin Ceftolozane/ Tazobactam 3 gm/ Dextrose 100 ml @ 100 mls/hr Q8HR IV 07/23/25 22:00 Vital Signs Vital Signs Date Time Temp Pulse Resp B/P (MAP) Pulse Ox O2 Delivery O2 Flow Rate FiO2 07/23/25 18:34 67 23 125/47 (73) 98 35 07/23/25 18:00 Mechanical Ventilator+ 07/23/25 16:31 98.2 98.2 Labs/Diagnostic Data Labs Test 07/23/25 16:40 07/23/25 06:35 07/23/25 02:50 07/21/25 22:00 Range/Units POC Glucose 169 H 70-106 mg/dl Blood Gas Specimen Type Arterial Blood Gas Sample Site Right radial Blood Gas Patient Temperature 37.0 Arterial Blood Date Drawn [id number] Arterial Blood pH 7.409 7.350-7.450 Arterial Blood Partial Pressure CO2 48.4 H 35.0-48.0 mmHg Arterial Blood Partial Pressure O2 78.4 L 83.0-108.0 mmHg Arterial Blood HCO3 29.9 H 21.0-28.0 mmol/L Arterial Blood Oxygen Saturation 94.2 94.0-98.0 % Arterial Blood Base Excess 4.6 H -2.0-3.0 mmol/L Arterial Blood Oxyhemoglobin 93.1 L 94.0-98.0 % Arterial Blood Carboxyhemoglobin 0.8 0.5-1.5 % Arterial Blood Methemoglobin 0.4 0.0-1.5 % Ryan Test Modified Blood Gas Total Hemoglobin 10.00 L 13.5-17.5 g/dL Blood Gas Set Respiration Rate 18.0 Blood Gas Modality Vent - ac FiO2 % 55.0 Blood Gas Tidal Volume 400.0 Blood Gas PEEP or CPAP 5.0 White Blood Count 8.0 4.4-10.8 10^3/uL Red Blood Count 3.20 L 4.5-5.90 10^6/uL Hemoglobin 8.9 L 13.5-17.5 g/dL Hematocrit 27.6 L 41.0-53.0 % Mean Corpuscular Volume 86.1 80.0-100.0 fL Mean Corpuscular Hemoglobin 27.8 L 28.0-32.0 pg Mean Corpuscular Hemoglobin Concent 32.3 32.0-36.0 g/dL Red Cell Distribution Width 17.9 H 11.8-14.3 % Platelet Count 386 140-450 10^3/uL Mean Platelet Volume 7.5 6.9-10.8 fL Neutrophils (%) (Auto) 57.8 37.0-80.0 % Lymphocytes (%) (Auto) 14.7 10.0-50.0 % Monocytes (%) (Auto) 10.4 0.0-12.0 % Eosinophils (%) (Auto) 16.2 H 0.0-7.0 % Basophils (%) (Auto) 0.9 0.0-2.0 % Neutrophils # (Auto) 4.6 1.6-8.6 10 ^3/uL Lymphocytes # (Auto) 1.2 0.4-5.4 10 ^3/uL Monocytes # (Auto) 0.8 0-1.3 10 ^3/uL Eosinophils # (Auto) 1.3 H 0-0.8 10 ^3/uL Basophils # (Auto) 0.1 0-0.2 10 ^3/uL Nucleated Red Blood Cells 0.4 % Sodium Level 148 H 136-145 mmol/L Potassium Level 3.8 3.5-5.1 mmol/L Chloride Level 106 98-107 mmol/L Carbon Dioxide Level 33 H 20-31 mmol/L Anion Gap 9 5-15 Blood Urea Nitrogen 23 9-23 mg/dL Creatinine 0.90 0.700-1.30 mg/dL Glomerular Filtration Rate Calc 91 >90 mL/min BUN/Creatinine Ratio 25.6 H 10.0-20.0 Serum Glucose 136 H 74-106 mg/dL Calcium Level 7.6 L 8.7-10.4 mg/dL Magnesium Level 2.3 1.6-2.6 mg/dL Total Bilirubin 2.2 H 0.2-1.0 mg/dL Aspartate Amino Transferase (AST) 45 H 13-40 U/L Alanine Aminotransferase (ALT) 37 7-40 U/L Alkaline Phosphatase 86 46-116 U/L Total Protein 5.6 L 5.7-8.2 g/dL Albumin 2.8 L 3.2-4.8 g/dL Digoxin Level 1.51 0.8-2 ng/mL Phosphorus Level 3.0 2.4-5.1 mg/dL Test 07/21/25 21:55 07/21/25 02:40 07/20/25 14:58 07/17/25 17:23 Range/Units Blood Gas Critical Value Read Back Yes Blood Gas Notified Whom just[place] resident Blood Gas Notified Time [id number] Blood Gas Notified By Differential Total Cells Counted 100.0 100 Neutrophils % (Manual) 45 37.0-80.0 Band Neutrophils % (Manual) 2 Lymphocytes % (Manual) 33 10.0-50.0 Monocytes % (Manual) 18 H 0-12 Eosinophils % (Manual) 2 0-7 Basophils % (Manual) 0 0.0-2.0 Metamyelocytes % (manual) 0 Myelocytes % (Manual) 0 Promyelocytes % (Manual) 0 Blast Cells % (Manual) 0 Reactive Lymphocytes 0 Platelet Estimate Increased Blood Gas Pressure Support 8 Random Vancomycin Level 11.3 H 5-10 ug/mL Test 07/17/25 10:13 07/16/25 03:10 07/15/25 02:42 07/14/25 06:38 Range/Units Vancomycin Level Trough 22.4 H 5-10 ug/mL Lipase 45 12-53 U/L Triglycerides Level 112 < 150 mg/dL Cholesterol Level 98 < 200 mg/dL LDL Cholesterol 56 < 100 mg/dL HDL Cholesterol 25 L 40-59 mg/dL Blood Gas Spontaneous Rate 18 Test 07/13/25 16:58 07/01/25 18:15 06/30/25 17:01 06/29/25 11:32 Range/Units Prothrombin Time 11.2 9.3-11.8 sec Prothrombin Time INR 1.06 0.9-1.15 Activated Partial Thromboplast Time 23.4 L 24.5-34.5 SEC Lactic Acid Level 1.6 0.4-2.0 mmol/L Urine Opiates Screen Neg NEGATIVE Urine Fentanyl Screen Pos NEGATIVE Urine Barbiturates Screen Neg NEGATIVE Urine Phencyclidine Screen Neg NEGATIVE Urine Amphetamines Screen Neg NEGATIVE Urine Benzodiazepines Screen Pos NEGATIVE Urine Cocaine Screen Neg NEGATIVE Urine Cannabinoids Screen Neg NEGATIVE Vitamin B12 Level 390 211-911 pg/mL Vitamin D 25-Hydroxy 24.8 L 30.0-100 ng/mL Test 06/29/25 06:11 06/29/25 00:12 06/28/25 17:14 06/28/25 17:12 Range/Units Red Blood Cell Morphology Normal Hemoglobin A1c 10.6 H <5.7 % A1C Troponin I High Sensitivity 955 *H </=54 ng/L Thyroid Stimulating Hormone (TSH) 1.43 0.55-4.78 uIU/mL Urine Color Colorless Yellow Urine Clarity Clear Clear Urine pH 5.0 5.0-9.0 Urine Specific Osteen 1.005 1.001-1.035 Urine Protein Negative Negative Urine Ketones Negative Negative Urine Blood Negative Negative /uL Urine Nitrite Negative Negative Urine Bilirubin Negative Negative Urine Urobilinogen Normal Negative mg/dL Urine Leukocyte Esterase Negative Negative /uL Urine RBC 1 0 - 3 /hpf Urine Microscopic WBC < 1 0-3 /HPF Urine Squamous Epithelial Cells None seen <5 /hpf Urine Bacteria None seen None Seen /hpf Urine Glucose 2+ H Normal mg/dL Test 06/28/25 13:30 Range/Units B-Type Natriuretic Peptide 302.02 0-100 pg/mL Microbiology Date/Time Source Procedure Growth Status 07/20/25 17:43 Sputum Gram Stain - Final Resulted 07/20/25 17:43 Respiratory Culture - Preliminary Pseudomonas aeruginosa Resulted 07/11/25 14:17 Blood Blood Culture - Final NO GROWTH AFTER 5 DAYS OF INCUBATION. Complete 07/01/25 22:35 Urine - Catheterized Urine Culture - Final Complete 06/29/25 04:30 Nose MRSA Screen - Final Complete Problems(with codes): (1) Carbapenem-resistant Enterobacteriaceae infection (2) Pseudomonal pneumonia (3) Non-STEMI (non-ST elevated myocardial infarction) (4) Atrial fibrillation with rapid ventricular response (5) Acute myocardial ischemia Plan/Recommendation ASSESSMENT AND PLAN: ID Problem List: -Pneumonia with sputum cultures positive for Pseudomonas aeruginosa and Serratia marcescens (hospital-acquired/ventilator-associated context) -Acute respiratory failure requiring endotracheal intubation and mechanical ventilation -Recurrent ventricular arrhythmias (ventricular tachycardia and torsades de po intes) with cardiac arrest x2 (ROSC after 8 minutes; ROSC after 6 minutes); prolonged QTc -Paroxysmal atrial fibrillation with RVR; unsuccessful DC cardioversion during this admission -Severe multivessel coronary artery disease with ischemic cardiomyopathy; subacute thrombosis of the circumflex -s/p PCI: successful PTCA/stent of occluded circumflex; subsequent revascularization procedures to LAD and mid RCA (per dates below) -Sick sinus syndrome/tachyarrhythmia; Medtronic permanent pacemaker implanted into the RV septum without complication -Hyperbilirubinemia (total bilirubin up to 2.2) with otherwise normal liver enzymes -Rectus abdominis hematoma on CT A/P -Type 2 diabetes mellitus -Hypertension -Prior ischemic stroke (2019) with chronic right-sided deficits; limited mobility (assisted/wheelchair) Assessment: This is a 74-year-old male with hypertension, paroxysmal atrial fibrillation (diagnosed 2016; prior electrical cardioversion), and ischemic stroke in 2019 with chronic right-sided deficits, who initially presented with AF with RVR. He progressed to ventricular arrhythmias (VT, torsades) with cardiac arrest requiring ACLS and achieved ROSC after 8 minutes; subsequently intubated. He has a prolonged QTc and is on amiodarone infusion with magnesium supplementation. Cardiology has been following; coronary angiography revealed severe triple- vessel CAD with subacute circumflex thrombosis, ischemic cardiomyopathy, and elevated LVEDP. He underwent successful PCI to the circumflex, with additional staged revascularizations to the LAD and mid RCA during this hospitalization. An attempt at DC cardioversion for AF was unsuccessful. A Medtronic permanent pacemaker was implanted in the RV septum for sick sinus syndrome/tachyarrhythmia. Pulmonary course notable for mixed pulmonary opacities and edema on imaging. Sputum cultures identified Pseudomonas aeruginosa and Serratia marcescens. He has been treated with broad-spectrum regimens including vancomycin with cefepime/Zosyn, later transitioned to vancomycin plus meropenem when clinical response was inadequate. Leukopenia noted on 07/19 has resolved; no documented fevers (Tmax 99.7F on 07/19). Total bilirubin increased to 2.2 with otherwise normal liver enzymes. CT A/P demonstrated a rectus abdominis hematoma. He exper ienced a second code event on 07/21 (CPR and defibrillation; ROSC after 6 minutes). He remains intubated and sedated with FiO2 approximately 35%. Plan: -Antimicrobial therapy: -Transition antipseudomonal coverage to ceftolozanetazobactam (Zerbaxa) to tar get Pseudomonas as per most recent sputum culture context. -Discontinue piperacillintazobactam (Zosyn) if still active on the NOV. -Prior courses included vancomycin and meropenem; reconcile active agents to avoid duplicate gram-negative coverage. -Proposed antibiotic duration: 7 days for current targeted therapy (drug name in transcript unclear; primidone likely instructional developer error). -Respiratory care: -Continue mechanical ventilation per ICU/pulmonology with goal SpO2 >92%. -Monitor FiO2 requirements and sputum production. -Implement frequent airway secretion clearance as recommended. -Daily chest radiograph to track resolution of pulmonary opacities. -Hemodynamics: -Maintain MAP ?65 mmHg per ICU protocol. -Hepatobiliary evaluation: -Obtain abdominal ultrasound to evaluate elevated bilirubin and assess for acalculous cholecystitis. -Arrhythmia/CV management: -Defer to cardiology regarding ongoing management of severe CAD, ischemic cardiomyopathy, recurrent AF, and pacemaker programming. -Strict avoidance of QT-prolonging medications (e.g., fluoroquinolones), given history of torsades and prolonged QTc. -Thrombosis/bleeding: -Acknowledge rectus abdominis hematoma on imaging; coordinate anticoagulation/antiplatelet management with cardiology and ICU teams in context of recent PCI, DAPT, and bleeding risk. -Monitoring/Follow-up: -Trend bilirubin and LFTs. -Monitor CBC and renal function while on antipseudomonal therapy. -Repeat sputum cultures per clinical course. Authorized and Performed by: lennie charles Total critical care time: Approximately 76 minutes Due to a high probability of clinically significant, life threatening deterio ration, the patient required my highest level of preparedness to intervene emergently and I personally spent this critical care time directly and personally managing the patient. This critical care time included obtaining a history; examining the patient; pulse oximetry; ordering and review of studies; arranging urgent treatment with development of a management plan; evaluation of patient's response to treatment; frequent reassessment; and, discussions with other providers. This critical care time was performed to assess and manage the high probability of imminent, life-threatening deterioration that could result in multi-organ failure. It was exclusive of separately billable procedures and treating other patients and teaching time. Isolation Precautions: standard \*Plan is subject to change pending incorporation of new information/diagnostics. Updates may be added as addendum at the bottom (or top) of this note. Thank you for the consult. ID will continue to follow. Please contact Infectious Diseases for any questions or concerns. Electronically signed by: Lennie Charles MD, 07/24/2025 History: The patient's chart and medications were reviewed in detail and the patient was seen and examined. History obtained from: transcript and current hospitalization records (patient intubated/sedated). The patient is a 74-year-old male with hypertension, paroxysmal AF (2016; prior electrical cardioversion), and ischemic stroke in 2019 with chronic right-sided deficits and limited mobility (assisted/wheelchair). He presented to the ED with AF with RVR, was started on a diltiazem infusion, and progressed to ventricular arrhythmias (VT and torsades) with cardiac arrest requiring CPR and ACLS; ROSC obtained after 8 minutes. He was intubated and started on amiodarone infusion with magnesium; prolonged QTc noted. Cardiology consulted. Initial CXR prior to intubation showed clear lungs without acute disease. Admission labs notable for glucose 227, troponin 827, WBC 8.8, Hgb 13.7, platelets 219, sodium 31 (value unclear in transcript), BUN 13, creatinine 1.27; UA without pyuria. Hospital Course: -06/29: Admitted. -PostVT event: Cardiac catheterization revealed severe triple-vessel CAD, ischemic cardiomyopathy, and subacute circumflex thrombosis; successful PTCA/stenting of occluded circumflex; elevated LVEDP. -Significant RCA and LAD disease identified; staged revascularization planned. -07/12: PTCA of mid RCA (chocolate balloon noted in transcript). Attempted DC cardioversion for AF was unsuccessful. -07/20: Medtronic permanent pacemaker implanted in the RV septum without complication for sick sinus syndrome/tachyarrhythmia. -07/19: Leukopenia and thrombocytosis documented; later resolved. -07/21: Second code blue; CPR and shock delivered; ROSC after 6 minutes. -Pulmonary: Mixed pulmonary opacities and edema on imaging. Sputum cultures grew Pseudomonas aeruginosa and Serratia marcescens. Antimicrobials during course included vancomycin with cefepime/Zosyn, then vancomycin with meropenem for inadequate response; plan to transition to targeted antipseudomonal therapy. -Hepatic: Total bilirubin increased to 2.2 with otherwise normal liver enzymes. -Imaging: No DVTs in upper or lower extremities. CT A/P showed a rectus abdominis hematoma. -Current status: Intubated, sedated; FiO2 ~35%. Review of Systems: -Not obtainable due to intubation and sedation at time of evaluation. Past Medical History: -Hypertension -Paroxysmal atrial fibrillation (diagnosed 2016; prior electrical cardioversion) -Ischemic stroke (2019) with chronic right-sided deficits -Ischemic cardiomyopathy (per cardiac cath findings during this admission) -Severe multivessel coronary artery disease Past Surgical History: -Prior surgical history before admission: Not provided in transcript. -In-hospital procedures: -PTCA/stent of occluded circumflex coronary artery -PTCA of mid RCA -Revascularization of LAD (date as documented in transcript) -Permanent pacemaker (Medtronic) implantation in RV septum Home Medications: -Dabigatran (Pradaxa) -Statin (transcript lists travastatin; exact agent unclear) -Hydrochlorothiazide -Lisinopril -Glipizide -Metformin -Metoprolol Doses, routes, and frequencies: Not provided in transcript. Allergies: -Not provided in transcript. Family History: -Two brothers with coronary artery disease requiring CABG at ages 40 and 50 -Brother with lung cancer -Mother with breast cancer Social History: -Tobacco: Former smoker; quit ~30 years ago (pack-year history unclear in transcript) -Alcohol: None -Illicit drugs: None -Mobility: Mobilizes with assistance or uses a wheelchair Objective: Vital Signs on Arrival: -Temperature: 97.6F -Respiratory rate: 16 -Blood pressure: 133/62 mmHg -SpO2: 97% on room air (prior to intubation) -Pulse: Not clearly stated in transcript Most Recent Vital Signs: -Not comprehensively provided in transcript. -On mechanical ventilation; FiO2 approximately 35%. Admission Weight: -Not provided in transcript. Physical Exam: General: NAD. Neck: Supple. No masses. HEENT: PERRL. Normal lids and conjunctiva. Moist mucous membranes. Oropharynx without lesions, exudates, or excessive erythema. Normal appearance of the external aspects of the nose and ears. Heart: Regular rhythm, normal rate. No murmur. No lower extremity edema. Lungs: Mechanically ventilated via endotracheal tube. Breath sounds not otherwise detailed in transcript. Abdomen: Soft. Non-tender. Non-distended. No masses or abdominal hernia. Msk: No digital cyanosis. Normal strength and tone in all 4 limbs (baseline limited by sedation; specific motor not detailed). Skin: Warm and dry, no rashes. Neuro: Sedated and intubated. Unable to assess orientation; no focal exam findings documented in transcript. Psych: Unable to assess due to intubation and sedation. Oriented to person, place, time, and situation: Unable to assess due to intubation and sedation. Lines: -Not provided in transcript. Diagnostic Studies: Available diagnostic studies were reviewed personally. Significant relevant results and findings are outlined below or addressed in the Assessment and Plan above. -Labs on admission: Glucose 227; troponin 827; WBC 8.8; Hgb 13.7; platelets 219; sodium 31 (value unclear in transcript); BUN 13; creatinine 1.27; UA without pyuria. -Subsequent labs: Total bilirubin up to 2.2 with otherwise normal liver enzymes; leukopenia on 07/19 resolved thereafter. -Microbiology: Sputum cultures positive for Pseudomonas aeruginosa and Serratia marcescens; additional sputum sample collected on 07/21 after code event. Pertinent Imaging: -Chest radiography: -Prior to intubation: Clear lungs; no acute cardiopulmonary disease. -Subsequent imaging: Mixed pulmonary opacities and edema. -Vascular ultrasound: No DVT identified in upper or lower extremities. -CT abdomen/pelvis: Rectus abdominis hematoma. -Cardiac catheterization: -Severe triple-vessel coronary artery disease; subacute thrombosis of circumflex; ischemic cardiomyopathy; elevated LVEDP. -Successful PTCA/stenting of occluded circumflex; significant disease of RCA and LAD with staged revascularizations performed (RCA mid lesion PTCA on 07/12; LAD revascularization as documented). Plan discussed with: Patient LENNIE CHARLES MD Jul 23, 2025 19:00
[2025-07-23] MEDS: CeftoloZANE-TAZOB 3 GM in D5W 5% 100 ML IV SCH (22:47)
[2025-07-24] VITALS (106 sets, daily range): BP systolic 73–175; BP diastolic 30–69; PULSE 42–124; RESP 10–26; TEMP 97.7–99.1; O2SAT 96–100
[2025-07-24 03:39] LABS: Hematocrit 26.6 % (41.0-53.0); Hemoglobin 8.6 g/dL (13.5-17.5); Mean Corpuscular Hemoglobin 27.8 pg (28.0-32.0); Mean Corpuscular Volume 85.8 fL (80.0-100.0); Nucleated Red Blood Cells % 0.1 %
[2025-07-24 04:09] LABS: Alanine Aminotransferase 29 U/L (7-40); Albumin 2.7 g/dL (3.2-4.8); Alkaline Phosphatase 88 U/L (46-116); Anion Gap 10 (5-15); BUN/Creatinine Ratio 24.4 (10.0-20.0); Bilirubin, Total 1.7 mg/dL (0.2-1.0); Blood Urea Nitrogen 21 mg/dL (9-23); Calcium 7.7 mg/dL (8.7-10.4); Carbon Dioxide 32 mmol/L (20-31); Chloride 106 mmol/L (98-107); Glucose 132 mg/dL (74-106); Magnesium 2.4 mg/dL (1.6-2.6); Potassium 3.7 mmol/L (3.5-5.1); Sodium 148 mmol/L (136-145); Total Protein 5.5 g/dL (5.7-8.2)
--- NOTE | 2025-07-24 05:21 | DVH ---
MEDICAL RECORDS NUMBER: [id number] PROCEDURE: XY CHEST XRAY 1 VIEW DATE: 07/24/2025 04:27 AM HISTORY: on vent Views:1 COMPARISON: XY CHEST PORTABLE on DOS: 07/23/25, XY CHEST XRAY 1 VIEW on DOS: 07/22/25, XY CHEST XRAY 1 VIEW on DOS: 07/22/25, XY CHEST XRAY 1 VIEW on DOS: 07/21/25, XY CHEST PORTABLE on DOS: 07/20/25 FINDINGS/IMPRESSION: Lungs: Bibasilar infiltrates and pleural fluid is seen. Mediastinum: Mediastinal structures appear unremarkable.A endotracheal tube is seen with the tip projecting approximately 2 cm above the kolby.A right-sided central line is seen. The tip projects over the superior vena cava. No pneumothorax is seen. NG tube courses through the films Skeletal: The skeletal structures appear unremarkable.
[2025-07-24] MEDS ORDERED: fentaNYL CITRATE 100 MCG/2 ML VL ONE (06:57)
[2025-07-24] MEDS ORDERED: KETAMINE 50mg/ML 1ml syringe ONE (06:57)
[2025-07-24] MEDS ORDERED: MIDAZOLAM HCL 2MG/2ML 2ml VIAL (1mg/ml) ONE (06:58)
[2025-07-24] MEDS ORDERED: PROPOFOL 10 MG/ML 20 ML IV ONE (06:58)
[2025-07-24] MEDS ORDERED: ONDANSETRON HCL 4 MG/2 ML VIAL ONE (06:58)
[2025-07-24] MEDS ORDERED: LIDOCAINE 1% INJ PF 5ML AMP ONE (06:58)
[2025-07-24] MEDS ORDERED: SODIUM CHLORIDE LOCK 10 ML ONE (06:58)
[2025-07-24 07:47] LABS: Base Excess 5.9 mmol/L (-2.0-3.0)
--- NOTE | 2025-07-24 09:38 | DVHPN2 ---
Consult Progress Note Date Seen: Jul 24, 2025 Subjective Patient reports: Feels better (fio2 improved, tolerating zerbaxa) Objective vital signs Vital Sign Date Time Temp Pulse Resp B/P (MAP) Pulse Ox O2 Delivery O2 Flow Rate FiO2 07/24/25 07:57 74 18 97/43 (61) 100 35 07/24/25 06:10 Mechanical Ventilator+ 07/24/25 04:00 98.8 98.8 Total Intake and Output 07/23/25 07/23/25 07/24/25 15:00 23:00 07:00 Intake Total 234.575 ml 870.8 ml 1125.5 ml Output Total 650 ml 600 ml Balance 234.575 ml 220.8 ml 525.5 ml medications Current Medications Medications Dose Ordered Sig/Jesse Route Start Time Stop Time Status Last Admin Dose Admin Atorvastatin Calcium 40 mg HS PO 06/29/25 22:00 07/23/25 22:50 40 MG Fentanyl Citrate 250 ml @ 2.5 mls/hr Q24H IV 06/29/25 06:15 07/23/25 19:26 12.5 MLS/HR Aspirin 81 mg DAILY PO 06/30/25 10:00 07/23/25 09:05 81 MG Insulin Human Regular HS SC 06/29/25 22:00 Cancel Insulin Human Regular AC SC 06/29/25 17:00 Cancel Pantoprazole Sodium 40 mg DAILY IV 06/30/25 10:00 07/23/25 09:03 40 MG Clopidogrel Bisulfate 75 mg DAILY PO 06/30/25 10:00 07/23/25 09:05 75 MG Diagnostic Test (Pha) 1 strip IQ4HR 06/29/25 20:00 07/24/25 07:59 1 STRIP Insulin Human Regular IQ4HR SC 06/29/25 20:00 07/24/25 08:00 2 UNITS Dextrose 50 ml UD PRN IV 06/29/25 17:30 Midazolam HCl 100 ml @ 1 mls/hr Q24H IV 06/29/25 18:00 07/24/25 03:16 1 MLS/HR Enteral Nutritional Formula 1,000 ml 45ML/HR GT 06/30/25 17:15 07/19/25 20:14 1,000 ML Acetaminophen 650 mg Q4HP PRN PO 07/01/25 17:00 07/17/25 23:56 650 MG Insulin Glargine 12 units HS SC 07/06/25 22:00 07/23/25 22:56 12 UNITS Polyethylene Glycol 17 gm DAILY PO 07/08/25 10:00 07/23/25 09:04 17 GM Propofol 100 ml @ 3.225 mls/ hr Q24H IV 07/08/25 09:45 07/24/25 05:32 6.45 MLS/HR Sennosides 8.6 mg HS PO 07/10/25 22:00 07/23/25 22:50 8.6 MG Digoxin 250 mcg DAILY IV 07/12/25 10:00 07/23/25 09:04 250 MCG Lactulose 30 ml DAILY PO 07/12/25 10:00 07/23/25 09:03 30 ML Empaglifozin 10 mg DAILY PO 07/14/25 10:00 07/23/25 09:04 10 MG Sodium Chloride 10 ml QSHIFT@10,22 IV 07/14/25 22:00 07/23/25 22:47 10 ML Norepinephrine Bitartrate 250 ml @ 3.75 mls/hr Q24H IV 07/17/25 03:15 07/20/25 17:45 3.75 MLS/HR Metoprolol Tartrate 25 mg BID PO 07/20/25 22:00 07/23/25 09:06 25 MG Labetalol HCl 10 mg Q4HP PRN IV 07/20/25 15:00 07/20/25 16:20 10 MG Purified Water 200 ml Q6HR GT 07/22/25 18:00 07/24/25 05:49 200 ML Ceftolozane/ Tazobactam 3 gm/ Dextrose 100 ml @ 100 mls/hr Q8HR IV 07/23/25 22:00 07/24/25 05:36 100 MLS/HR laboratory and microbiology Laboratory Tests 07/24/25 02:52 Test 07/24/25 02:52 Range/Units Serum Glucose 132 H 74-106 mg/dL Problem List/Assessment/Plan Problems(with codes): (1) Non-STEMI (non-ST elevated myocardial infarction) (2) Atrial fibrillation with rapid ventricular response (3) Acute myocardial ischemia (4) Pseudomonal pneumonia (5) Carbapenem-resistant Enterobacteriaceae infection Problem List/Assessment/Plan ASSESSMENT AND PLAN: ID Problem List: -Pneumonia with sputum cultures positive for Pseudomonas aeruginosa and Serratia marcescens (hospital-acquired/ventilator-associated context) -Acute respiratory failure requiring endotracheal intubation and mechanical ventilation -Recurrent ventricular arrhythmias (ventricular tachycardia and torsades de pointes) with cardiac arrest x2 (ROSC after 8 minutes; ROSC after 6 minutes); prolonged QTc -Paroxysmal atrial fibrillation with RVR; unsuccessful DC cardioversion during this admission -Severe multivessel coronary artery disease with ischemic cardiomyopathy; subacute thrombosis of the circumflex -s/p PCI: successful PTCA/stent of occluded circumflex; subsequent revascularization procedures to LAD and mid RCA (per dates below) -Sick sinus syndrome/tachyarrhythmia; Medtronic permanent pacemaker implanted into the RV septum without complication -Hyperbilirubinemia (total bilirubin up to 2.2) with otherwise normal liver enzymes -Rectus abdominis hematoma on CT A/P -Type 2 diabetes mellitus -Hypertension -Prior ischemic stroke (2019) with chronic right-sided deficits; limited mobility (assisted/wheelchair) Assessment: This is a 74-year-old male with hypertension, paroxysmal AF (2016; prior electrical cardioversion), and ischemic stroke in 2019 with chronic right-sided deficits, who presented with AF with RVR and progressed to ventricular arrhythmias (VT, torsades) with cardiac arrests requiring ACLS (ROSC at 8 minutes; later ROSC at 6 minutes). He is intubated and sedated with a prolonged QTc; on amiodarone with magnesium. Coronary angiography showed severe triple- vessel CAD with subacute circumflex thrombosis, ischemic cardiomyopathy, and elevated LVEDP; he underwent PCI to the circumflex with additional staged revascularizations to the LAD and mid RCA. DC cardioversion for AF was unsuccessful. A permanent Medtronic pacemaker was implanted in the RV septum for sick sinus/tachyarrhythmia. Pulmonary course notable for mixed pulmonary opacities/edema on imaging. Sputum cultures grew Pseudomonas aeruginosa and Serratia marcescens. He received broad- spectrum therapy (vancomycin with cefepime/Zosyn, later vancomycin with meropenem for inadequate response). Leukopenia on 07/19 resolved; Tmax 99.7F on 07/19 without documented fevers otherwise. Total bilirubin kenia to 2.2 with otherwise normal liver enzymes. CT A/P showed a rectus abdominis hematoma. He remains intubated with FiO2 ~35%. Plan: -Antimicrobial therapy: -Transition antipseudomonal coverage to ceftolozanetazobactam (Zerbaxa) to target Pseudomonas per culture context. -Discontinue piperacillintazobactam (Zosyn) if still active. -Prior regimens included vancomycin and meropenem; reconcile to avoid unnecessary duplicate gram-negative coverage. -Proposed duration for current targeted therapy: 7 days. Note: transcript mentions primidone, likely a towel inspector error; clarify intended agent/duration on rounds. -Comment: Zithromax referenced in transcript is not appropriate monotherapy for Pseudomonas; proceed with antipseudomonal beta-lactam as above. -Respiratory care: -Continue mechanical ventilation per ICU/pulmonology with goal SpO2 >92%. -Monitor FiO2 requirements and sputum burden; implement frequent airway secretion clearance. -Daily chest radiograph to track resolution of opacities. -Hemodynamics: -Maintain MAP ?65 mmHg per ICU protocol. -Hepatobiliary: -Obtain abdominal ultrasound to evaluate elevated bilirubin and assess for acalculous cholecystitis. -Arrhythmia/CV management: -Defer to cardiology for ongoing management of severe CAD, ischemic cardiomyopathy, recurrent AF, and pacemaker programming. -Strict avoidance of QT-prolonging agents (e.g., fluoroquinolones) given torsades and prolonged QTc history. -Thrombosis/bleeding: -Acknowledge rectus abdominis hematoma; coordinate anticoagulation/antiplatelet strategy with cardiology/ICU in context of recent PCI, DAPT, and bleeding risk. -Monitoring/Follow-up: -Trend bilirubin/LFTs. -Monitor CBC and renal function while on antipseudomonal therapy. -Repeat sputum cultures based on clinical course. Authorized and Performed by: sheryl gaston md Total critical care time: Approximately 76 minutes Due to a high probability of clinically significant, life threatening deterioration, the patient required my highest level of preparedness to intervene emergently and I personally spent this critical care time directly and personally managing the patient. This critical care time included obtaining a history; examining the patient; pulse oximetry; ordering and review of studies; arranging urgent treatment with development of a management plan; evaluation of patient's response to treatment; frequent reassessment; and, discussions with other providers. This critical care time was performed to assess and manage the high probability of imminent, life-threatening deterioration that could result in multi-organ failure. It was exclusive of separately billable procedures and treating other patients and teaching time. Isolation Precautions: standard Assessment and plan discussed with the care team. Plan subject to change pending new data; updates may be added as an addendum. Thank you for the consult. ID will continue to follow. Please contact Infectious Diseases for any questions or concerns. )))))))))))))))))))))))))))))))))))))))))))))))))))))))))))))))))))))))))))))))) )))))))))))))))))))))))))))))))))))))))))))))))))))))))))) PHYSICAL EXAM: General: NAD Neck: Supple. No masses. HEENT: PERRL. Normal lids and conjunctiva. Moist mucous membranes. Oropharynx without lesions, exudates or excessive erythema. Normal appearance of the external aspects of the nose and ears. Heart: Regular rhythm, normal rate. No murmur. No lower extremity edema. Lungs: Mechanically ventilated via endotracheal tube. No wheezes. No crackles. Abdomen: Soft. Non-tender. Non-distended. No masses or abdominal hernia. Msk: No digital cyanosis. Normal strength and tone in all 4 limbs. Skin: Warm and dry, no rashes. Neuro: Sedated and intubated. No facial droop or slurred speech. Extra-ocular movements intact. Sensation intact to soft touch in all 4 limbs. Psych: Unable to assess due to intubation and sedation. Oriented to person, place, time, and situation: Unable to assess due to intubation and sedation. Plan discussed with: Patient Dietary Evaluation Review Comments: 1. Protein needs based on 1.2-1.5g/protein/kg IBW d/t low GFR 2. While being intubated, offer TF Vital HP @45ml/hr, in 24 hr, Pt will receive 94g protein, 1080lkcal 903ml free water, meeting pts needs at 97% protein and 100% energy. 3. Consider TPN to meet pt's needs if Pt does not tolerate TF well. 4. Reassess when pt extubated, advance to CCHO-60 PO diet after passing a GROUNDS/MAINTENANCE SPECIALIST evluation. Expected Outcomes/Goals: off intubation, advance to CCHO-60 Cardiac diet, gradual wt loss SHERYL GASTON MD Jul 24, 2025 09:38
--- NOTE | 2025-07-24 11:21 | DVH ---
INDICATION: evaluate for acalculous cholecystitis TECHNIQUE: Multiple real-time sonographic images were obtained of the right upper quadrant. COMPARISON: XY KUB ABDOMEN SINGLE VIEW on DOS: 07/14/25 FINDINGS: The liver demonstrates heterogeneous echotexture without focal mass lesions. The liver measures 18.3 cm. There is no intrahepatic or extrahepatic ductal dilatation. The common duct measures 0.9 cm. The gallbladder is without evidence of stone or sludge. The gallbladder wall measures 0.2 cm and is within normal limits. The right kidney measures 9.2 cm. The right kidney is normal in contour, size, and shape. The echogenicity is normal. There is no hydronephrosis. The pancreas is not well visualized due to overlying bowel gas. Trace left pleural effusion. IMPRESSION: No sonographic evidence of gallstones or acute cholecystitis. Hepatic steatosis. Trace left pleural effusion.
[2025-07-24] MEDS: POTASSIUM CHL 20MEQ/100ML 100 ML IV SCH (13:47)
[2025-07-24] MEDS: POTASSIUM CHL 20MEQ/100ML 100 ML IV ONE (13:55)
--- NOTE | 2025-07-24 19:17 | DVHPNRES ---
Progress Note Date Seen: Jul 24, 2025 Resident Creating Document: DALIA VALDOVINOS RESIDENT Medical Necessity Reason Pt with a Central, PICC or Fol: Yes The following are medically ne: Central Line, Lau Catheter Reason for lau catheter: Strict I&O Subjective Review of Systems Mr. Almanza is a 74 year old male with PMHx hypertension, type 2 diabetes mellitus, dyslipidemia, paroxysmal AFib, and CVA in with left sided deficits, who presented to [facility] ED due to palpitations and shortness of breath on 06/28/2025. He was found to have Afib with RVR and was placed on IV diltiazem. Patient subsequently entered in cardiac arrest with possible V-tach or Torsades de Pointes, achieving ROSC after 8 minutes of CPR, he was intubated and started on Amiodarone drip, which was later discontinued due to prolonged QTc. He was admitted for further evaluation and management. Past medical history: Hypertension, dyslipidemia, diabetes, paroxysmal atrial fibrillation diagnosed in 2016 (chads Vasc 7), 2019 CVA Past surgical history: Appendectomy Family history: Two brothers had heart disease requiring CABG at the age of 40 and 50 respectively, brother had lung cancer, mother had breast cancer Social history: with . Ex tobacco abuse (eight pack-year history of smoking) quit 30 years ago. Denies current tobacco, alcohol and other drug abuse Allergies: Denies Home medication: Pradaxa 150 mg p.o. daily, atorvastatin 40 mg p.o. daily, hydrochlorothiazide 12.5 mg p.o. daily, lisinopril 20 mg p.o. daily, glipizide, metformin a 1000 mg p.o. b.i.d., metoprolol (he quit taking for four months since it made him tired). 07/24/2025: Patient seen in ICU. , Myrna, is at bedside. Over night patient became bradycardic with HR between 42-52, for this reason propofol and versed were turned off, metoprolol was also held. Patient is more awake. He is currently off pressors. Digoxin level was 7.56, for which digoxin was held, last draw was 1.56, digoxin has been reinitiated. Given recent extubation failure and episode of cardiac arrest on 07/21/2025, we have discussed tracheostomy with his , who is amenable to the plan. Objective vital signs Vital Sign Date Time Temp Pulse Resp B/P (MAP) Pulse Ox O2 Delivery O2 Flow Rate FiO2 07/24/25 18:15 98 20 155/50 (85) 97 07/24/25 18:05 35 07/24/25 18:00 Mechanical Ventilator+ 07/24/25 16:01 98.2 98.2 Total Intake and Output 07/23/25 07/23/25 07/24/25 15:00 23:00 07:00 Intake Total 234.575 ml 870.8 ml 1141.225 ml Output Total 650 ml 600 ml Balance 234.575 ml 220.8 ml 541.225 ml medications Current Medications Medications Dose Ordered Sig/Jesse Route Start Time Stop Time Status Last Admin Dose Admin Atorvastatin Calcium 40 mg HS PO 06/29/25 22:00 07/23/25 22:50 40 MG Fentanyl Citrate 250 ml @ 2.5 mls/hr Q24H IV 06/29/25 06:15 07/24/25 13:52 12.5 MLS/HR Aspirin 81 mg DAILY PO 06/30/25 10:00 07/24/25 09:24 81 MG Insulin Human Regular HS SC 06/29/25 22:00 Cancel Insulin Human Regular AC SC 06/29/25 17:00 Cancel Pantoprazole Sodium 40 mg DAILY IV 06/30/25 10:00 07/24/25 09:24 40 MG Clopidogrel Bisulfate 75 mg DAILY PO 06/30/25 10:00 07/24/25 09:24 75 MG Diagnostic Test (Pha) 1 strip IQ4HR 06/29/25 20:00 07/24/25 16:05 1 STRIP Insulin Human Regular IQ4HR SC 06/29/25 20:00 07/24/25 16:06 2 UNITS Dextrose 50 ml UD PRN IV 06/29/25 17:30 Midazolam HCl 100 ml @ 1 mls/hr Q24H IV 06/29/25 18:00 07/24/25 03:16 1 MLS/HR Enteral Nutritional Formula 1,000 ml 45ML/HR GT 06/30/25 17:15 07/19/25 20:14 1,000 ML Acetaminophen 650 mg Q4HP PRN PO 07/01/25 17:00 07/17/25 23:56 650 MG Insulin Glargine 12 units HS SC 07/06/25 22:00 07/23/25 22:56 12 UNITS Polyethylene Glycol 17 gm DAILY PO 07/08/25 10:00 07/23/25 09:04 17 GM Propofol 100 ml @ 3.225 mls/ hr Q24H IV 07/08/25 09:45 07/24/25 05:32 6.45 MLS/HR Sennosides 8.6 mg HS PO 07/10/25 22:00 07/23/25 22:50 8.6 MG Digoxin 250 mcg DAILY IV 07/12/25 10:00 07/24/25 13:46 250 MCG Lactulose 30 ml DAILY PO 07/12/25 10:00 07/23/25 09:03 30 ML Empaglifozin 10 mg DAILY PO 07/14/25 10:00 07/24/25 09:25 10 MG Sodium Chloride 10 ml QSHIFT@10,22 IV 07/14/25 22:00 07/24/25 09:55 10 ML Norepinephrine Bitartrate 250 ml @ 3.75 mls/hr Q24H IV 07/17/25 03:15 07/20/25 17:45 3.75 MLS/HR Metoprolol Tartrate 25 mg BID PO 07/20/25 22:00 07/23/25 09:06 25 MG Labetalol HCl 10 mg Q4HP PRN IV 07/20/25 15:00 07/20/25 16:20 10 MG Purified Water 200 ml Q6HR GT 07/22/25 18:00 07/24/25 17:32 200 ML Ceftolozane/ Tazobactam 3 gm/ Dextrose 100 ml @ 100 mls/hr Q8HR IV 07/23/25 22:00 07/24/25 14:26 100 MLS/HR Examination General: intubated, sedated HEENT: Normocephalic, atraumatic, moist mucous membranes Respiratory/pulmonary: Clear lungs bilaterally, vesicular murmurs present in almost all lung roberts, no associated crackles or wheezes. Cardiovascular: Normal heart sounds S1 and S2 with no associated murmurs Abdomen: Abdomen nondistended, there is no pain to palpation in any of the abdominal quadrants, no palpable masses. Right flank bruise Extremities: There is no peripheral edema present at the lower extremities. Bilateral erythematous and ulcerated lesions. Skin: No rashes or pruritus, there is no sacral edema present at this time laboratory and microbiology Laboratory Tests 07/24/25 02:52 Test 07/24/25 02:52 Range/Units Serum Glucose 132 H 74-106 mg/dL Microbiology Date/Time Source Procedure Growth Status 07/20/25 17:43 Sputum Gram Stain - Final Resulted 07/20/25 17:43 Respiratory Culture - Preliminary Pseudomonas aeruginosa Resulted 07/11/25 14:17 Blood Blood Culture - Final NO GROWTH AFTER 5 DAYS OF INCUBATION. Complete 07/01/25 22:35 Urine - Catheterized Urine Culture - Final Complete 06/29/25 04:30 Nose MRSA Screen - Final Complete Problem List/Assessment/Plan Problem List/Assessment/Plan Neurology # Sedated - Fentanyl - Versed and Propofol were stopped due to episode of bradycardia # Acute metabolic encephalopathy # History of CVA-with residual aphasia, right-sided deficit Cardiovascular #ROSC s/p Cardiac arrest and CPR - Patient had Vtach or Torsades de Pointes on 06/28/2025 - ROSC post CPR - Patient had VFib on 07/21/2025 - ROSC post CPR #Newly diagnosed coronary artery disease - triple-vessel disease #Dyslipidemia #NSTEMI type 1 status post PCI - S/p PCI x 4 STANLEY in circumflex 06/29/2025 - S/p PCI x 3 STANLEY in LAD 07/05/2025 - S/p Unsuccessful PTCA of mid RCA, unsuccessful cardioversion - Cardiology has been reached out to to determine possibility of second attempt - Aspirin 81 mg, Clopidogrel 74 mg, Atorvastatin 40 mg #Prolonged QT - Avoid Qt prolonging medications #Paroxysmal atrial fibrillation with RVR - Digoxin 250 mcg - Metoprolol 12.5 mg p.o. b.i.d. added - Micra leadless pacemaker placed. -- Per cardiology, micra has been installed with a triggering HR of 50 bpm #End Stage Heart Failure - Echocardiogram (06/29/2025): lvef 20%, moderate LV enlargement, severe end stage HF, RV dysfunction, aortic sclerosis, moderate MAC, mild cathy regurg, mild tricuspid regurg ,moderate pulm htn - Per cardiology, initiate full GDMT when tolerable #Moderate Pulmonary Hypertension Respiratory # Ventilator -intubated (06/28/2024) -extubated (07/20/2025) -reintubated (07/20/2025) -on [facility] vent : VCAC Mode RR 18 TV 400ml, PEEP Of 5 and FiO2 of 35% -Consult to general surgery for tracheostomy has been placed # Acute hypoxic respiratory failure - Ventilator settings: AC mode, RR 18, VT 400, PEEP 5, FiO2 35% - Consult to General Surgery for tracheostomoy has been placed # Pneumonia (gram +/ gram -/ aspiration) -Chest x-ray: Similar bilateral inferior graded opacities, likely a combination of airspace disease and pleural effusion. 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 RE intubated on 11/14. Vascular Access: Central line 06/29 Drips: Fentanyl Critical care time 81 minutes excluding procedure. Code status discussed greater than 20 minutes: Full CODE STATUS. Family at bedside explained about the condition of the patient Plan discussed with Dr. Aguirre Plan discussed with: Spouse, Other (nurse) Dietary Evaluation Review Comments: 1. Protein needs based on 1.2-1.5g/protein/kg IBW d/t low GFR 2. While being intubated, offer TF Vital HP @45ml/hr, in 24 hr, Pt will receive 94g protein, 1080lkcal 903ml free water, meeting pts needs at 97% protein and 100% energy. 3. Consider TPN to meet pt's needs if Pt does not tolerate TF well. 4. Reassess when pt extubated, advance to CCHO-60 PO diet after passing a MANAGER MAINTENANCE evluation. Expected Outcomes/Goals: off intubation, advance to CCHO-60 Cardiac diet, gradual wt loss Date of Service: Jul 24, 2025 Billing Provider: YOBANY AGUIRRE MD Common Visit Codes: 99070-[id number] CARE 30-74 MIN, 20460-[id number] CARE-EACH +30MIN DALIA VALDOVINOS RESIDENT Jul 24, 2025 19:17 YOBANY AGUIRRE MD Jul 25, 2025 15:44
[2025-07-25] VITALS (109 sets, daily range): BP systolic 98–174; BP diastolic 33–69; PULSE 35–100; RESP 14–24; TEMP 98–98.8; O2SAT 93–100
--- NOTE | 2025-07-25 03:29 | DVH ---
MEDICAL RECORDS NUMBER: [id number] PROCEDURE: XY CHEST XRAY 1 VIEW DATE: 07/25/2025 03:01 AM HISTORY: Intubated Views:1 COMPARISON: XY CHEST XRAY 1 VIEW on DOS: 07/24/25, XY CHEST PORTABLE on DOS: 07/23/25, XY CHEST XRAY 1 VIEW on DOS: 07/22/25, XY CHEST XRAY 1 VIEW on DOS: 07/22/25, XY CHEST XRAY 1 VIEW on DOS: 07/21/25 FINDINGS/IMPRESSION: Lungs: Bibasilar atelectasis and pleural fluid is noted. Bilateral lower lung infiltrates are evident Mediastinum: Mediastinal structures appear unremarkable.A endotracheal tube is seen with the tip projecting approximately 2 cm above the kolby.Nasogastric tube courses through the film. Right-sided line is seen with the tip projecting over the right upper mediastinum Skeletal: The skeletal structures appear unremarkable.
[2025-07-25 03:58] LABS: Hematocrit 27.5 % (41.0-53.0); Hemoglobin 8.9 g/dL (13.5-17.5); Mean Corpuscular Hemoglobin 27.6 pg (28.0-32.0); Mean Corpuscular Volume 85.3 fL (80.0-100.0); Nucleated Red Blood Cells % 0.1 %
[2025-07-25 04:12] LABS: INR 1.09 (0.9-1.15); Partial Thromboplastin Time 29.9 SEC (24.5-34.5); Prothrombin Time 11.5 sec (9.3-11.8)
[2025-07-25 04:16] LABS: Alanine Aminotransferase 25 U/L (7-40); Alkaline Phosphatase 91 U/L (46-116); Anion Gap 10 (5-15); BUN/Creatinine Ratio 28.0 (10.0-20.0); Blood Urea Nitrogen 23 mg/dL (9-23); Chloride 106 mmol/L (98-107); Potassium 4.2 mmol/L (3.5-5.1); Total Protein 5.7 g/dL (5.7-8.2)
[2025-07-25 04:18] LABS: Albumin 2.7 g/dL (3.2-4.8); Bilirubin, Total 1.6 mg/dL (0.2-1.0); Calcium 8.0 mg/dL (8.7-10.4); Carbon Dioxide 32 mmol/L (20-31); Glucose 147 mg/dL (74-106); Sodium 148 mmol/L (136-145)
[2025-07-25 07:44] LABS: Base Excess 3.3 mmol/L (-2.0-3.0)
--- NOTE | 2025-07-25 08:06 | ECG ---
[facility] Test Date: 2025-07-22 Test Time: 16:35:33 Pat Name: DIVYA GIRALDO Department: Respiratoy Room: 0266 A Gender: M Casting Inspector: LUZ : [id number] Requested By: NESTOR BELLA Order Number: [id number] Reading MD: Paul Mtz Measurements Intervals [place] Rate: 82 P: 0 CO: 0 QRS: -1 QRSD: 98 T: 198 QT: 451 QTc: 527 Interpretive Statements Atrial fibrillation Borderline low voltage, extremity leads Borderline repolarization abnormality Prolonged QT interval Electronically Signed On 07-25-2025 17:19:53 PST by Paul Mtz Please click the below link to view image of tracing.
--- NOTE | 2025-07-25 09:30 | DVHPN2 ---
Consult Progress Note Date Seen: Jul 25, 2025 Subjective Other Systems: No overnight cardiac events reported Objective vital signs Vital Sign Date Time Temp Pulse Resp B/P (MAP) Pulse Ox O2 Delivery O2 Flow Rate FiO2 07/25/25 08:31 70 21 129/39 (69) 98 07/25/25 08:01 98.3 98.3 07/25/25 08:00 Mechanical Ventilator+ 35 35 Total Intake and Output 07/24/25 07/24/25 07/25/25 15:00 23:00 07:00 Intake Total 200.0 ml 632.5 ml 1078.0 ml Output Total 600 ml 950 ml Balance 200.0 ml 32.5 ml 128.0 ml medications Current Medications Medications Dose Ordered Sig/Jesse Route Start Time Stop Time Status Last Admin Dose Admin Atorvastatin Calcium 40 mg HS PO 06/29/25 22:00 07/24/25 21:52 40 MG Fentanyl Citrate 250 ml @ 2.5 mls/hr Q24H IV 06/29/25 06:15 07/24/25 13:52 12.5 MLS/HR Aspirin 81 mg DAILY PO 06/30/25 10:00 07/24/25 09:24 81 MG Insulin Human Regular HS SC 06/29/25 22:00 Cancel Insulin Human Regular AC SC 06/29/25 17:00 Cancel Pantoprazole Sodium 40 mg DAILY IV 06/30/25 10:00 07/24/25 09:24 40 MG Clopidogrel Bisulfate 75 mg DAILY PO 06/30/25 10:00 07/24/25 09:24 75 MG Diagnostic Test (Pha) 1 strip IQ4HR 06/29/25 20:00 07/25/25 07:50 1 STRIP Insulin Human Regular IQ4HR SC 06/29/25 20:00 07/25/25 07:55 2 UNITS Dextrose 50 ml UD PRN IV 06/29/25 17:30 Midazolam HCl 100 ml @ 1 mls/hr Q24H IV 06/29/25 18:00 07/24/25 03:16 1 MLS/HR Enteral Nutritional Formula 1,000 ml 45ML/HR GT 06/30/25 17:15 07/19/25 20:14 1,000 ML Acetaminophen 650 mg Q4HP PRN PO 07/01/25 17:00 07/17/25 23:56 650 MG Insulin Glargine 12 units HS SC 07/06/25 22:00 07/24/25 21:58 12 UNITS Polyethylene Glycol 17 gm DAILY PO 07/08/25 10:00 07/23/25 09:04 17 GM Propofol 100 ml @ 3.225 mls/ hr Q24H IV 07/08/25 09:45 07/24/25 05:32 6.45 MLS/HR Sennosides 8.6 mg HS PO 07/10/25 22:00 07/24/25 21:53 8.6 MG Digoxin 250 mcg DAILY IV 07/12/25 10:00 07/24/25 13:46 250 MCG Lactulose 30 ml DAILY PO 07/12/25 10:00 07/23/25 09:03 30 ML Empaglifozin 10 mg DAILY PO 07/14/25 10:00 07/24/25 09:25 10 MG Sodium Chloride 10 ml QSHIFT@10,22 IV 07/14/25 22:00 07/24/25 22:12 10 ML Norepinephrine Bitartrate 250 ml @ 3.75 mls/hr Q24H IV 07/17/25 03:15 07/20/25 17:45 3.75 MLS/HR Metoprolol Tartrate 25 mg BID PO 07/20/25 22:00 07/24/25 21:54 25 MG Labetalol HCl 10 mg Q4HP PRN IV 07/20/25 15:00 07/20/25 16:20 10 MG Purified Water 200 ml Q6HR GT 07/22/25 18:00 07/25/25 05:38 200 ML Ceftolozane/ Tazobactam 3 gm/ Dextrose 100 ml @ 100 mls/hr Q8HR IV 07/23/25 22:00 07/25/25 05:39 100 MLS/HR Examination: GENERAL:Abnormal, LUNGS:Abnormal (Endotracheally intubated with 35% FiO2), CVS:Normal (A-fib controlled rate. Off vasopressors), SKIN:Abnormal (Right flank hematoma), NEURO:Normal (Follows simple commands. On light sedation) laboratory and microbiology Laboratory Tests 07/25/25 03:08 Test 07/25/25 03:08 Range/Units Serum Glucose 147 H 74-106 mg/dL Problem List/Assessment/Plan Problem List/Assessment/Plan Cardiac arrest secondary to ventricular arrhythmia (ventricular tachycardia and torsades de Pointe) - status post ROSC NSTEMI type 1 - status post PCI with 4 STANLEY to circumflex and 3 STANLEY to LAD Newly diagnosed coronary artery disease - triple-vessel disease De Sarabjit Decompensated HFrEF, NYHA Class IV Persistent atrial fibrillation with RVR ([id number] Score 7) - secondary hypercoagulability state Atrial fibrillation with tachybrady events status post micra-leadless pacemaker implantation on 07/19/2025 Prolonged QTc, resolved Metabolic acidosis with elevated anion gap secondary to hyperlacticacidemia KEANU hemodynamically mediated (VMN) 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 Mtz) Patient presented with cardiac arrest with requirement of ACLS maneuver for 8 minutes with endotracheal intubation EKG shows atrial fibrillation with anterior T-wave inversions, prolonged QT (longest was 580 milliseconds) Completed coronary angiography which showed severe triple-vessel disease with acutely occluded circumflex currently status post PCI with 4 STANLEY and staged procedure to LAD with 3 STANLEY placed. He was attempted stage procedure of the mid-RCA which was unsuccessful Revascularized culprit vessel. Completed stage procedure to LAD on 07/05/2025. Unsuccessful staged mid-RCA on 07/12/2025 (can be completed in this center or in [place]). Echocardiogram: LVEF 20%, moderate LV enlargement, severe end stage HF, RV dysfunction, moderate MAC, mild MR and TR, moderate pulmonary HTN Initially was on heparin drip, now on therapeutic enoxaparin for A-fib. Attempted DCCV which was unsuccessful on 07/12/2025 Tachy-sergio events status post micra-leadless pacemaker implantation on 07/19/2025 Currently on mechanical assisted ventilation with 30% FiO2 Rest of management per primary team (on IV antibiotics) Plan: Case discussed in full detail with Dr. Mtz. Patient currently ICU status due to mechanical assisted ventilation and off vasopressors. Completed initial coronary angiography on 06/29/2025 which showed triple-vessel disease with acute circumflex occlusion status post PCI with 4 STANLEY placed, staged procedure to LAD with 3 STANLEY on 07/05/2025 and unsuccessful staged procedure of the mid-RCA with attempted unsuccessful DCCV x 2 on 07/12/2025. Recommendations are to continue therapeutic Lovenox and transition to low-dose DOAC therapy with Eliquis 2.5 mg BID when appropriate, continue dual-antiplatelet therapy (Plavix and ASA) and stop ASA on 08/05/2025 with continuation of DOAC and Plavix for the remaining. Initiate full GDMT for HFrEF when able to tolerate, currently on SGLT2i, low-dose beta-gary, and low-dose ACEI. We will defer revascularization of mid-RCA given high risk for complications and need for surgical backup. Given atrial fibrillation with tachy-sergio events, the patient underwent a micra-leadless pacemaker implantation on 07/19/2025. Pacemaker interrogation was completed on 07/20/25, unremarkable. HR low rate limit was set at 50 bpm. We will be reaching out to [employer] billing representative to upgrade rate to 60 bpm. Kindly call if in need of further recommendations. Patient has a very poor prognosis. Goals of care discussed with : Full code status. Critical care time spent including discussion with nursing and family, excluding procedures: 40 minutes. Plan discussed with: Patient, Other Dietary Evaluation Review Comments: 1. Protein needs based on 1.2-1.5g/protein/kg IBW d/t low GFR 2. While being intubated, offer TF Vital HP @45ml/hr, in 24 hr, Pt will receive 94g protein, 1080lkcal 903ml free water, meeting pts needs at 97% protein and 100% energy. 3. Consider TPN to meet pt's needs if Pt does not tolerate TF well. 4. Reassess when pt extubated, advance to CCHO-60 PO diet after passing a CHEMICAL ANALYTICAL SAMPLER evluation. Expected Outcomes/Goals: off intubation, advance to CCHO-60 Cardiac diet, gradual wt loss Date of Service: Jul 25, 2025 Billing Provider: ELMO NICHOLAS Cardiology Common Codes: 68162-GOVHQXQD CARE 30-74 MIN ELMO NICHOLAS Jul 25, 2025 09:30
[2025-07-25] MEDS: LISINOPRIL 5 MG TAB GT SCH (10:30)
[2025-07-25] MEDS: ENOXAPARIN SOD 100 MG/1 ML SYRINGE SC SCH (10:40)
--- NOTE | 2025-07-25 11:27 | DVHPNRES ---
Progress Note Date Seen: Jul 25, 2025 Resident Creating Document: DALIA VALDOVINOS RESIDENT Medical Necessity Reason Pt with a Central, PICC or Fol: Yes The following are medically ne: PICC Line, Lau Catheter Reason for lau catheter: Strict I&O Subjective Review of Systems Mr. Almanza is a 74 year old male with PMHx hypertension, type 2 diabetes mellitus, dyslipidemia, paroxysmal AFib, and CVA in with left sided deficits, who presented to [facility] ED due to palpitations and shortness of breath on 06/28/2025. He was found to have Afib with RVR and was placed on IV diltiazem. Patient subsequently entered in cardiac arrest with possible V-tach or Torsades de Pointes, achieving ROSC after 8 minutes of CPR, he was intubated and started on Amiodarone drip, which was later discontinued due to prolonged QTc. He was admitted for further evaluation and management. Past medical history: Hypertension, dyslipidemia, diabetes, paroxysmal atrial fibrillation diagnosed in 2016 (chads Vasc 7), 2019 CVA Past surgical history: Appendectomy Family history: Two brothers had heart disease requiring CABG at the age of 40 and 50 respectively, brother had lung cancer, mother had breast cancer Social history: with . Ex tobacco abuse (eight pack-year history of smoking) quit 30 years ago. Denies current tobacco, alcohol and other drug abuse Allergies: Denies Home medication: Pradaxa 150 mg p.o. daily, atorvastatin 40 mg p.o. daily, hydrochlorothiazide 12.5 mg p.o. daily, lisinopril 20 mg p.o. daily, glipizide, metformin a 1000 mg p.o. b.i.d., metoprolol (he quit taking for four months since it made him tired). 07/25/2025: Patient seen in ICU. Per his nurse, Lisa, no overnight events to report. Patient is afebrilen 07/24/2025: Patient seen in ICU. , Myrna, is at bedside. Over night patient became bradycardic with HR between 42-52, for this reason propofol and versed were turned off, metoprolol was also held. Patient is more awake. He is currently off pressors. Digoxin level was 7.56, for which digoxin was held, last draw was 1.56, digoxin has been reinitiated. Given recent extubation failure and episode of cardiac arrest on 07/21/2025, we have discussed tracheostomy with his , who is amenable to the plan. Objective vital signs Vital Sign Date Time Temp Pulse Resp B/P (MAP) Pulse Ox O2 Delivery O2 Flow Rate FiO2 07/25/25 10:30 149/54 07/25/25 10:25 101 07/25/25 10:00 18 98 Mechanical Ventilator+ 35 35 07/25/25 08:01 98.3 98.3 Total Intake and Output 07/24/25 07/24/25 07/25/25 15:00 23:00 07:00 Intake Total 200.0 ml 632.5 ml 1078.0 ml Output Total 600 ml 950 ml Balance 200.0 ml 32.5 ml 128.0 ml medications Current Medications Medications Dose Ordered Sig/Jesse Route Start Time Stop Time Status Last Admin Dose Admin Atorvastatin Calcium 40 mg HS PO 06/29/25 22:00 07/24/25 21:52 40 MG Fentanyl Citrate 250 ml @ 2.5 mls/hr Q24H IV 06/29/25 06:15 07/25/25 10:34 12.5 MLS/HR Aspirin 81 mg DAILY PO 06/30/25 10:00 07/25/25 10:24 81 MG Insulin Human Regular HS SC 06/29/25 22:00 Cancel Insulin Human Regular AC SC 06/29/25 17:00 Cancel Pantoprazole Sodium 40 mg DAILY IV 06/30/25 10:00 07/25/25 10:23 40 MG Clopidogrel Bisulfate 75 mg DAILY PO 06/30/25 10:00 07/25/25 10:26 75 MG Diagnostic Test (Pha) 1 strip IQ4HR 06/29/25 20:00 07/25/25 07:50 1 STRIP Insulin Human Regular IQ4HR SC 06/29/25 20:00 07/25/25 07:55 2 UNITS Dextrose 50 ml UD PRN IV 06/29/25 17:30 Midazolam HCl 100 ml @ 1 mls/hr Q24H IV 06/29/25 18:00 07/24/25 03:16 1 MLS/HR Enteral Nutritional Formula 1,000 ml 45ML/HR GT 06/30/25 17:15 07/19/25 20:14 1,000 ML Acetaminophen 650 mg Q4HP PRN PO 07/01/25 17:00 07/17/25 23:56 650 MG Insulin Glargine 12 units HS SC 07/06/25 22:00 07/24/25 21:58 12 UNITS Polyethylene Glycol 17 gm DAILY PO 07/08/25 10:00 07/23/25 09:04 17 GM Propofol 100 ml @ 3.225 mls/ hr Q24H IV 07/08/25 09:45 07/24/25 05:32 6.45 MLS/HR Sennosides 8.6 mg HS PO 07/10/25 22:00 07/24/25 21:53 8.6 MG Lactulose 30 ml DAILY PO 07/12/25 10:00 07/23/25 09:03 30 ML Empaglifozin 10 mg DAILY PO 07/14/25 10:00 07/25/25 10:24 10 MG Sodium Chloride 10 ml QSHIFT@10,22 IV 07/14/25 22:00 07/25/25 10:24 10 ML Norepinephrine Bitartrate 250 ml @ 3.75 mls/hr Q24H IV 07/17/25 03:15 07/20/25 17:45 3.75 MLS/HR Metoprolol Tartrate 25 mg BID PO 07/20/25 22:00 07/25/25 10:25 25 MG Labetalol HCl 10 mg Q4HP PRN IV 07/20/25 15:00 07/20/25 16:20 10 MG Purified Water 200 ml Q6HR GT 07/22/25 18:00 07/25/25 05:38 200 ML Ceftolozane/ Tazobactam 3 gm/ Dextrose 100 ml @ 100 mls/hr Q8HR IV 07/23/25 22:00 07/25/25 05:39 100 MLS/HR Enoxaparin Sodium 100 mg Q12HR SC 07/25/25 10:00 07/25/25 10:40 100 MG Lisinopril 2.5 mg DAILY GT 07/25/25 10:00 07/25/25 10:30 2.5 MG laboratory and microbiology Laboratory Tests 07/25/25 03:08 Test 07/25/25 03:08 Range/Units Serum Glucose 147 H 74-106 mg/dL Microbiology Date/Time Source Procedure Growth Status 07/20/25 17:43 Sputum Gram Stain - Final Resulted 07/20/25 17:43 Respiratory Culture - Preliminary Pseudomonas aeruginosa Resulted 07/11/25 14:17 Blood Blood Culture - Final NO GROWTH AFTER 5 DAYS OF INCUBATION. Complete 07/01/25 22:35 Urine - Catheterized Urine Culture - Final Complete 06/29/25 04:30 Nose MRSA Screen - Final Complete Problem List/Assessment/Plan Problem List/Assessment/Plan Neurology # Sedated - Fentanyl - Versed and Propofol were stopped due to episode of bradycardia # Acute metabolic encephalopathy # History of CVA-with residual aphasia, right-sided deficit Cardiovascular #ROSC s/p Cardiac arrest and CPR - Patient had Vtach or Torsades de Pointes on 06/28/2025 - ROSC post CPR - Patient had VFib on 07/21/2025 - ROSC post CPR #Newly diagnosed coronary artery disease - triple-vessel disease #Dyslipidemia #NSTEMI type 1 status post PCI - S/p PCI x 4 STANLEY in circumflex 06/29/2025 - S/p PCI x 3 STANLEY in LAD 07/05/2025 - S/p Unsuccessful PTCA of mid RCA, unsuccessful cardioversion - Cardiology has been reached out to to determine possibility of second attempt - Aspirin 81 mg, Clopidogrel 74 mg, Atorvastatin 40 mg #Prolonged QT - Avoid Qt prolonging medications #Paroxysmal atrial fibrillation with RVR - Digoxin 250 mcg - Metoprolol 12.5 mg p.o. b.i.d. added - Micra leadless pacemaker placed. -- Per cardiology, micra has been installed with a triggering HR of 50 bpm #End Stage Heart Failure - Echocardiogram (06/29/2025): lvef 20%, moderate LV enlargement, severe end stage HF, RV dysfunction, aortic sclerosis, moderate MAC, mild cathy regurg, mild tricuspid regurg ,moderate pulm htn - Per cardiology, initiate full GDMT when tolerable #Moderate Pulmonary Hypertension Respiratory # Ventilator -intubated (06/28/2024) -extubated (07/20/2025) -reintubated (07/20/2025) -on [facility] vent : VCAC Mode RR 18 TV 400ml, PEEP Of 5 and FiO2 of 35% -Consult to general surgery for tracheostomy has been placed # Acute hypoxic respiratory failure - Ventilator settings: AC mode, RR 18, VT 400, PEEP 5, FiO2 35% - Consult to General Surgery for tracheostomoy has been placed # Pneumonia (gram +/ gram -/ aspiration) -Chest x-ray: Similar bilateral inferior graded opacities, likely a combination of airspace disease and pleural effusion. 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 RE intubated on 07/21. Vascular Access: Central line 06/29 Drips: Fentanyl Critical care time 81 minutes excluding procedure. Code status discussed greater than 20 minutes: Full CODE STATUS. Family at bedside explained about the condition of the patient Plan discussed with Dr. Phan My Orders My Orders Orders - DALIA VALDOVINOS RESIDENT Procedure Category Date Status Time Chest Xray 1 View XY 07/25/25 Resulted 04:00 Abg W/ Co-Ox RT 07/25/25 Logged 04:00 Dietary Evaluation Review Comments: 1. Protein needs based on 1.2-1.5g/protein/kg IBW d/t low GFR 2. While being intubated, offer TF Vital HP @45ml/hr, in 24 hr, Pt will receive 94g protein, 1080lkcal 903ml free water, meeting pts needs at 97% protein and 100% energy. 3. Consider TPN to meet pt's needs if Pt does not tolerate TF well. 4. Reassess when pt extubated, advance to CCHO-60 PO diet after passing a AUTOMOBILE SERVICE STATION MECHANIC evluation. Expected Outcomes/Goals: off intubation, advance to CCHO-60 Cardiac diet, gradual wt loss DALIA VALDOVINOS RESIDENT Jul 25, 2025 11:27
--- NOTE | 2025-07-25 11:32 | DVHINCON2 ---
Date of service: Jul 25, 2025 Allergies: Coded Allergies: NO KNOWN ALLERGIES (Unverified , 06/28/25) Current Medications Current Medications Medications (Trade) Dose Ordered Sig/Jesse Route PRN Reason Start Time Stop Time Status Last Admin Enoxaparin Sodium (Lovenox) 100 mg Q12HR SC 07/25/25 10:00 07/25/25 10:40 Lisinopril (Zestril Tablet) 2.5 mg DAILY GT 07/25/25 10:00 07/25/25 10:30 Vital Signs Vital Signs Date Time Temp Pulse Resp B/P (MAP) Pulse Ox O2 Delivery O2 Flow Rate FiO2 07/25/25 10:30 149/54 07/25/25 10:25 101 07/25/25 10:00 18 98 Mechanical Ventilator+ 35 35 07/25/25 08:01 98.3 98.3 Labs/Diagnostic Data Labs Test 07/25/25 07:45 07/25/25 07:11 07/25/25 03:08 07/24/25 05:30 Range/Units POC Glucose 153 H 70-106 mg/dl Blood Gas Specimen Type Arterial Blood Gas Sample Site Left radial Blood Gas Patient Temperature 37.0 Arterial Blood Date Drawn [id number] Arterial Blood pH 7.434 7.350-7.450 Arterial Blood Partial Pressure CO2 42.5 35.0-48.0 mmHg Arterial Blood Partial Pressure O2 100.7 83.0-108.0 mmHg Arterial Blood HCO3 27.8 21.0-28.0 mmol/L Arterial Blood Oxygen Saturation 96.9 94.0-98.0 % Arterial Blood Base Excess 3.3 H -2.0-3.0 mmol/L Arterial Blood Oxyhemoglobin 95.2 94.0-98.0 % Arterial Blood Carboxyhemoglobin 1.3 0.5-1.5 % Arterial Blood Methemoglobin 0.5 0.0-1.5 % Ryan Test Modified Blood Gas Total Hemoglobin 8.80 L 13.5-17.5 g/dL Blood Gas Set Respiration Rate 18.0 Blood Gas Modality Vent - ac FiO2 % 35.0 Blood Gas Tidal Volume 400.0 Blood Gas PEEP or CPAP 5.0 White Blood Count 8.7 # 4.4-10.8 10^3/uL Red Blood Count 3.23 L 4.5-5.90 10^6/uL Hemoglobin 8.9 L 13.5-17.5 g/dL Hematocrit 27.5 L 41.0-53.0 % Mean Corpuscular Volume 85.3 80.0-100.0 fL Mean Corpuscular Hemoglobin 27.6 L 28.0-32.0 pg Mean Corpuscular Hemoglobin Concent 32.3 32.0-36.0 g/dL Red Cell Distribution Width 18.0 H 11.8-14.3 % Platelet Count 359 140-450 10^3/uL Mean Platelet Volume 7.6 6.9-10.8 fL Neutrophils (%) (Auto) 68.8 37.0-80.0 % Lymphocytes (%) (Auto) 12.5 10.0-50.0 % Monocytes (%) (Auto) 13.1 H 0.0-12.0 % Eosinophils (%) (Auto) 5.2 0.0-7.0 % Basophils (%) (Auto) 0.4 0.0-2.0 % Neutrophils # (Auto) 6.0 1.6-8.6 10 ^3/uL Lymphocytes # (Auto) 1.1 0.4-5.4 10 ^3/uL Monocytes # (Auto) 1.1 0-1.3 10 ^3/uL Eosinophils # (Auto) 0.4 0-0.8 10 ^3/uL Basophils # (Auto) 0 0-0.2 10 ^3/uL Nucleated Red Blood Cells 0.1 % Prothrombin Time 11.5 9.3-11.8 sec Prothrombin Time INR 1.09 0.9-1.15 Activated Partial Thromboplast Time 29.9 24.5-34.5 SEC Sodium Level 148 H 136-145 mmol/L Potassium Level 4.2 3.5-5.1 mmol/L Chloride Level 106 98-107 mmol/L Carbon Dioxide Level 32 H 20-31 mmol/L Anion Gap 10 5-15 Blood Urea Nitrogen 23 9-23 mg/dL Creatinine 0.82 0.700-1.30 mg/dL Glomerular Filtration Rate Calc 93 >90 mL/min BUN/Creatinine Ratio 28.0 H 10.0-20.0 Serum Glucose 147 H 74-106 mg/dL Calcium Level 8.0 L 8.7-10.4 mg/dL Total Bilirubin 1.6 H 0.2-1.0 mg/dL Aspartate Amino Transferase (AST) 24 13-40 U/L Alanine Aminotransferase (ALT) 25 7-40 U/L Alkaline Phosphatase 91 46-116 U/L Total Protein 5.7 5.7-8.2 g/dL Albumin 2.7 L 3.2-4.8 g/dL Digoxin Level 1.53 0.8-2 ng/mL Test 07/24/25 02:52 07/21/25 22:00 07/21/25 21:55 07/21/25 02:40 Range/Units Magnesium Level 2.4 1.6-2.6 mg/dL Phosphorus Level 3.0 2.4-5.1 mg/dL Blood Gas Critical Value Read Back Yes Blood Gas Notified Whom Anna, s resident Blood Gas Notified Time [id number] Blood Gas Notified By Differential Total Cells Counted 100.0 100 Neutrophils % (Manual) 45 37.0-80.0 Band Neutrophils % (Manual) 2 Lymphocytes % (Manual) 33 10.0-50.0 Monocytes % (Manual) 18 H 0-12 Eosinophils % (Manual) 2 0-7 Basophils % (Manual) 0 0.0-2.0 Metamyelocytes % (manual) 0 Myelocytes % (Manual) 0 Promyelocytes % (Manual) 0 Blast Cells % (Manual) 0 Reactive Lymphocytes 0 Platelet Estimate Increased Test 07/20/25 14:58 07/17/25 17:23 07/17/25 10:13 07/16/25 03:10 Range/Units Blood Gas Pressure Support 8 Random Vancomycin Level 11.3 H 5-10 ug/mL Vancomycin Level Trough 22.4 H 5-10 ug/mL Lipase 45 12-53 U/L Test 07/15/25 02:42 07/14/25 06:38 07/01/25 18:15 06/30/25 17:01 Range/Units Triglycerides Level 112 < 150 mg/dL Cholesterol Level 98 < 200 mg/dL LDL Cholesterol 56 < 100 mg/dL HDL Cholesterol 25 L 40-59 mg/dL Blood Gas Spontaneous Rate 18 Lactic Acid Level 1.6 0.4-2.0 mmol/L Urine Opiates Screen Neg NEGATIVE Urine Fentanyl Screen Pos NEGATIVE Urine Barbiturates Screen Neg NEGATIVE Urine Phencyclidine Screen Neg NEGATIVE Urine Amphetamines Screen Neg NEGATIVE Urine Benzodiazepines Screen Pos NEGATIVE Urine Cocaine Screen Neg NEGATIVE Urine Cannabinoids Screen Neg NEGATIVE Test 10/23/25 11:32 06/29/25 06:11 06/29/25 00:12 06/28/25 17:14 Range/Units Vitamin B12 Level 390 211-911 pg/mL Vitamin D 25-Hydroxy 24.8 L 30.0-100 ng/mL Red Blood Cell Morphology Normal Hemoglobin A1c 10.6 H <5.7 % A1C Troponin I High Sensitivity 955 *H </=54 ng/L Thyroid Stimulating Hormone (TSH) 1.43 0.55-4.78 uIU/mL Test 06/28/25 17:12 06/28/25 13:30 Range/Units Urine Color Colorless Yellow Urine Clarity Clear Clear Urine pH 5.0 5.0-9.0 Urine Specific [place] 1.005 1.001-1.035 Urine Protein Negative Negative Urine Ketones Negative Negative Urine Blood Negative Negative /uL Urine Nitrite Negative Negative Urine Bilirubin Negative Negative Urine Urobilinogen Normal Negative mg/dL Urine Leukocyte Esterase Negative Negative /uL Urine RBC 1 0 - 3 /hpf Urine Microscopic WBC < 1 0-3 /HPF Urine Squamous Epithelial Cells None seen <5 /hpf Urine Bacteria None seen None Seen /hpf Urine Glucose 2+ H Normal mg/dL B-Type Natriuretic Peptide 302.02 0-100 pg/mL Microbiology Date/Time Source Procedure Growth Status 07/20/25 17:43 Sputum Gram Stain - Final Resulted 07/20/25 17:43 Respiratory Culture - Preliminary Pseudomonas aeruginosa Resulted 07/11/25 14:17 Blood Blood Culture - Final NO GROWTH AFTER 5 DAYS OF INCUBATION. Complete 07/01/25 22:35 Urine - Catheterized Urine Culture - Final Complete 06/29/25 04:30 Nose MRSA Screen - Final Complete Assessment 74 year old male with multiple co morbidities, s/p cardiac arrest and "code blue" 4 days ago, intubated, sedated. anatomy suitable for tracheostomy, labds OK, ABG OK, will proceed tomorrow. have asked nurse to shave off facial and neck hair. Plan discussed with: FAUSTO Vega MD Jul 25, 2025 11:32
[2025-07-25 12:36] LABS: INR 1.11 (0.9-1.15); Partial Thromboplastin Time 33.0 SEC (24.5-34.5); Prothrombin Time 11.6 sec (9.3-11.8)
[2025-07-25] MEDS ORDERED: METOCLOPRAMIDE HCL 5MG/ml INJ 2ml VIAL IV ONE (12:52)
--- NOTE | 2025-07-25 16:28 | DVHDSRES ---
Discharge Summary Date of Admission Resident Creating Document: VALDOVINOS,DALIA RESIDENT Jun 28, 2025 at 19:13 Date of Discharge: Jul 25, 2025 Admitting Diagnosis AFib with RVR Wounds: Left lower leg has a closed, dry, healing ulcer measuring 3.5x2.6cm with adhered, dusky red and rosales eschar. Labs/Diagnostic Data: Laboratory Results Test 07/25/25 11:40 07/25/25 11:34 07/25/25 07:11 07/25/25 03:08 Prothrombin Time 11.6 sec (9.3-11.8) Prothrombin Time INR 1.11 (0.9-1.15) Activated Partial Thromboplast Time 33.0 SEC (24.5-34.5) POC Glucose 161 mg/dl (70-106) Blood Gas Specimen Type Arterial Blood Gas Sample Site Left radial Blood Gas Patient Temperature 37.0 Arterial Blood Date Drawn [id number] Arterial Blood pH 7.434 (7.350-7.450) Arterial Blood Partial Pressure CO2 42.5 mmHg (35.0-48.0) Arterial Blood Partial Pressure O2 100.7 mmHg (83.0-108.0) Arterial Blood HCO3 27.8 mmol/L (21.0-28.0) Arterial Blood Oxygen Saturation 96.9 % (94.0-98.0) Arterial Blood Base Excess 3.3 mmol/L (-2.0-3.0) Arterial Blood Oxyhemoglobin 95.2 % (94.0-98.0) Arterial Blood Carboxyhemoglobin 1.3 % (0.5-1.5) Arterial Blood Methemoglobin 0.5 % (0.0-1.5) Ryan Test Modified Blood Gas Total Hemoglobin 8.80 g/dL (13.5-17.5) Blood Gas Set Respiration Rate 18.0 Blood Gas Modality Vent - ac FiO2 % 35.0 Blood Gas Tidal Volume 400.0 Blood Gas PEEP or CPAP 5.0 White Blood Count 8.7 10^3/uL (4.4-10.8) Red Blood Count 3.23 10^6/uL (4.5-5.90) Hemoglobin 8.9 g/dL (13.5-17.5) Hematocrit 27.5 % (41.0-53.0) Mean Corpuscular Volume 85.3 fL (80.0-100.0) Mean Corpuscular Hemoglobin 27.6 pg (28.0-32.0) Mean Corpuscular Hemoglobin Concent 32.3 g/dL (32.0-36.0) Red Cell Distribution Width 18.0 % (11.8-14.3) Platelet Count 359 10^3/uL (140-450) Mean Platelet Volume 7.6 fL (6.9-10.8) Neutrophils (%) (Auto) 68.8 % (37.0-80.0) Lymphocytes (%) (Auto) 12.5 % (10.0-50.0) Monocytes (%) (Auto) 13.1 % (0.0-12.0) Eosinophils (%) (Auto) 5.2 % (0.0-7.0) Basophils (%) (Auto) 0.4 % (0.0-2.0) Neutrophils # (Auto) 6.0 10 ^3/uL (1.6-8.6) Lymphocytes # (Auto) 1.1 10 ^3/uL (0.4-5.4) Monocytes # (Auto) 1.1 10 ^3/uL (0-1.3) Eosinophils # (Auto) 0.4 10 ^3/uL (0-0.8) Basophils # (Auto) 0 10 ^3/uL (0-0.2) Nucleated Red Blood Cells 0.1 % Sodium Level 148 mmol/L (136-145) Potassium Level 4.2 mmol/L (3.5-5.1) Chloride Level 106 mmol/L (98-107) Carbon Dioxide Level 32 mmol/L (20-31) Anion Gap 10 (5-15) Blood Urea Nitrogen 23 mg/dL (9-23) Creatinine 0.82 mg/dL (0.700-1.30) Glomerular Filtration Rate Calc 93 mL/min (>90) BUN/Creatinine Ratio 28.0 (10.0-20.0) Serum Glucose 147 mg/dL (74-106) Calcium Level 8.0 mg/dL (8.7-10.4) Total Bilirubin 1.6 mg/dL (0.2-1.0) Aspartate Amino Transferase (AST) 24 U/L (13-40) Alanine Aminotransferase (ALT) 25 U/L (7-40) Alkaline Phosphatase 91 U/L (46-116) Total Protein 5.7 g/dL (5.7-8.2) Albumin 2.7 g/dL (3.2-4.8) Test 07/24/25 05:30 07/24/25 02:52 07/21/25 22:00 07/21/25 21:55 Digoxin Level 1.53 ng/mL (0.8-2) Magnesium Level 2.4 mg/dL (1.6-2.6) Phosphorus Level 3.0 mg/dL (2.4-5.1) Blood Gas Critical Value Read Back Yes Blood Gas Notified Whom Anna, s resident Blood Gas Notified Time [id number] Blood Gas Notified By Test 07/21/25 02:40 07/20/25 14:58 07/17/25 17:23 07/17/25 10:13 Differential Total Cells Counted 100.0 (100) Neutrophils % (Manual) 45 (37.0-80.0) Band Neutrophils % (Manual) 2 Lymphocytes % (Manual) 33 (10.0-50.0) Monocytes % (Manual) 18 (0-12) Eosinophils % (Manual) 2 (0-7) Basophils % (Manual) 0 (0.0-2.0) Metamyelocytes % (manual) 0 Myelocytes % (Manual) 0 Promyelocytes % (Manual) 0 Blast Cells % (Manual) 0 Reactive Lymphocytes 0 Platelet Estimate Increased Blood Gas Pressure Support 8 Random Vancomycin Level 11.3 ug/mL (5-10) Vancomycin Level Trough 22.4 ug/mL (5-10) Test 07/16/25 03:10 07/15/25 02:42 07/14/25 06:38 07/01/25 18:15 Lipase 45 U/L (12-53) Triglycerides Level 112 mg/dL (< 150) Cholesterol Level 98 mg/dL (< 200) LDL Cholesterol 56 mg/dL (< 100) HDL Cholesterol 25 mg/dL (40-59) Blood Gas Spontaneous Rate 18 Lactic Acid Level 1.6 mmol/L (0.4-2.0) Test 06/30/25 17:01 06/29/25 11:32 06/29/25 06:11 06/29/25 00:12 Urine Opiates Screen Neg (NEGATIVE) Urine Fentanyl Screen Pos (NEGATIVE) Urine Barbiturates Screen Neg (NEGATIVE) Urine Phencyclidine Screen Neg (NEGATIVE) Urine Amphetamines Screen Neg (NEGATIVE) Urine Benzodiazepines Screen Pos (NEGATIVE) Urine Cocaine Screen Neg (NEGATIVE) Urine Cannabinoids Screen Neg (NEGATIVE) Vitamin B12 Level 390 pg/mL (211-911) Vitamin D 25-Hydroxy 24.8 ng/mL (30.0-100) Red Blood Cell Morphology Normal Hemoglobin A1c 10.6 % A1C (<5.7) Troponin I High Sensitivity 955 ng/L (</=54) Test 06/28/25 17:14 06/28/25 17:12 06/28/25 13:30 Thyroid Stimulating Hormone (TSH) 1.43 uIU/mL (0.55-4.78) Urine Color Colorless (Yellow) Urine Clarity Clear (Clear) Urine pH 5.0 (5.0-9.0) Urine Specific [place] 1.005 (1.001-1.035) Urine Protein Negative (Negative) Urine Ketones Negative (Negative) Urine Blood Negative /uL (Negative) Urine Nitrite Negative (Negative) Urine Bilirubin Negative (Negative) Urine Urobilinogen Normal mg/dL (Negative) Urine Leukocyte Esterase Negative /uL (Negative) Urine RBC 1 /hpf (0 - 3) Urine Microscopic WBC < 1 /HPF (0-3) Urine Squamous Epithelial Cells None seen /hpf (<5) Urine Bacteria None seen /hpf (None Seen) Urine Glucose 2+ mg/dL (Normal) B-Type Natriuretic Peptide 302.02 pg/mL (0-100) Other Laboratory Tests 07/25/25 03:08 Brief Hx & Hospital Course: Mr. 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 On arrival to the ED patient was found to have atrial fibrillation with RVR and was started on a diltiazem drip to control his heart rate. The patient was admitted for further work up and monitoring. Patient progressed to cardiac arrest secondary to possible ventricular tachycardia or [place]. Patient required CPR and ACLS maneuvers for 8 minutes followed by endotracheal intubation, obtaining ROSC. He was placed Patient was initially on amiodarone drip which was later discontinued after magnesium was given for QT prolongation. Due to elevated troponins, patient was taken to coronary angiography on 06/29/2025, where he was found to have triple- vessel disease. Cardiology decided to staged approach, placing 4 drug-eluting stent in the circumflex artery. echocardiogram from 07/02/2025 shows LVEF 20%, moderate LV enlargement, severe end-stage heart failure, RV dysfunction, aortic stenosis, moderate MAC, mitral regurgitation, mild tricuspid regurgitation, and moderate pulmonary hypertension. Patient was taken back to the laboratory development technician on 07/05/2025 were 3 drug-eluting stents were placed in the LAD, and on 07/12/2025 which was unsuccessful for PTCA of mid RCA and unsuccessful cardioversion. Due to difficulty controlling AFib, digoxin was started. Given persistent tachy- sergio events, a micra pacemaker was implanted on 07/19/2025. Micra interrogated and adjusted, with patient maintaining adequate heart rate. Additionally, patient began spiking fevers with associated elevation of WBCs. Patient was started on IV vancomycin, IV meropenem, and levophed. Blood cultures were drawn and were negative, one set shows signs of contamination. Urine cultures were negative. Sputum cultures originally growing pseudomonas aeruginosa and serratia marcescens, for which meropenem was switched to Zosyn. Secondary cultures growing pseudomonas aeruginosa CRE. Infectious disease was consulted and started the patient on Zebraxa. He was taken off pressors and sedation was decreased, for multiple CPAP trials, which he failed. Patient was extubated on 07/20/2025, but required reintubation. On , patient presented episode of Vfib requiring 6 minutes of CPR with ROSC obtained. Given patient's patient condition and inability to be taken off the ventilator, tracheostomy is required. He is currently stable for transfer to [place] [facility] for realization of procedure. Physical Exam General: intubated, minimally sedated, pupils normoreactive to light HEENT: Normocephalic, atraumatic, moist mucous membranes, presence of OG tube Respiratory/pulmonary: Clear lungs bilaterally, vesicular murmurs present in almost all lung roberts, no associated crackles or wheezes. Cardiovascular: Normal heart sounds S1 and S2 with no associated murmurs Abdomen: Abdomen nondistended, there is no pain to palpation in any of the abdominal quadrants, no palpable masses. Right flank bruise Extremities: Edema noted in bilateral hands, bilateral erythematous and ulcerated lesions. Skin: No rashes or pruritus, there is no sacral edema present at this time Neurologic: Retirement Plan Counselor was consulted for transfer to [place] ICU Plan discussed with Dr. Aguirre Goals of care discussed with the patient's at bedside, Myrna. Critical care time 87 minutes, excluding procedures Consults/Reason for consult Cardiology was consulted due to cardiac arrest and elevated troponins. 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 Status post ventricular tachycardia. Postop Diagnosis: Three-vessel coronary artery disease. Severe ischemic cardiomyopathy. Subacute thrombosis of circumflex coronary artery. Surgeon: Paul Mtz MD Anesthesiologist: Conscious sedation Anesthesia: Mac, Local Consent: The patient was informed of the risks and benefits of the procedure. These include but are not limited to complications of anesthesia, postoperative infection, incomplete relief of symptoms, recurrence of symptoms, damage to blood vessels, nerves and tendons, deep venous thrombosis, pulmonary embolism and possible need for repeat surgery in the future. Complications: No complications Findings: Severe three-vessel coronary artery disease. Cardiomyopathy. Indications for Surgery: Recent myocardial infarction. Recurrent ventricular tachycardia Name of Procedure Performed Bilateral cine coronary angiography. Left ventriculography. PTCA and stenting of the circumflex coronary artery.:. Procedure Details Procedure Details: Prior local anesthesia with 2% lidocaine to the right wrist and full informed consent obtained the patient was prepped and draped in usual fashion followed by placement of a six Croatian slender sheath into the radial artery followed by a Ankit catheter to performed ventriculography cannulation of both right and left coronary ostia without complications Hemodynamics: Aortic blood pressure was 100/50. End-diastolic pressure was 18. There was no gradient across the aortic valve on pullback. Coronary anatomy: The RCA is a large dominant vessel. It has moderate plaquing in his proximal and mid section. The distal segment prior to the origin of the PDA and throughout the trans course to the posterolateral branches has severe disease with tandem lesions of 75-90% stenosis. Diminished flow to the PDA and posterolateral branches noted. Collateralization noted to the circumflex coronary artery. Left main is large and normal. Left anterior descending coronary artery was a large vessel with a proximal 90% stenosis. There was a mid 95% stenosis. Moderate plaquing throughout with the diagonals are free of significant disease. The circumflex is occluded at its proximal portion. Ventriculography in the CARRANZA projection shows an EF of approximately 15% Angioplasty was performed for which a 4.0 EBU guide was then placed into the left main and a Specter wire was used to cross the area of stenosis within the proximal circumflex. We placed the wire distally crossing several lesions into the distal circumflex. We took a 2-0 balloon and pre-dilated to the proximal and midportion. We noted that we were in the circumflex proper which is a smaller vessel and we diverted the wire into the obtuse marginal branch which was a large vessel also with multiple lesions present. We dilated the distal lesion which is a 80% stenosis and the lesion just distal to the bifurcation of the circumflex which had another 80% hazy lesion. The mid circumflex was also dilated which was a calcified and hazy lesion. The proximal circumflex was also dilated which had a 95+% stenosis prior to the origin of the complete occlusion. We then placed a two 5 x 12 mm stent into the distal obtuse marginal branch. We placed a two 5 x 12 just distal to the origin of the marginal at the takeoff of the circumflex bifurcation. We then placed a 18 by 3-0 stent into the mid circumflex and a 3-0 by 12 mm stent into the ostium excellent antegrade flow without thrombus formation and/or dissection. Impression successful PTCA and stenting and aperture of the occluded circumflex coronary artery. Decreased left ventricular ejection fraction. Elevated left ventricular end-diastolic pressures. Significant CAD of the RCA and LAD. Recommendations: a staged procedure of the RCA and LAD at a later date. Continue dual antiplatelet therapy. Risk factor modifications and guideline directed medical therapy for his cardiomyopathy. Date: 07/12/25 Preop Diagnosis: Severe CAD. Postop Diagnosis: Atrial fibrillation. Coronary artery disease Surgeon: Paul Mtz MD Anesthesiologist: Conscious sedation Anesthesia: Mac, Local Consent: The patient was informed of the risks and benefits of the procedure. These include but are not limited to complications of anesthesia, postoperative infection, incomplete relief of symptoms, recurrence of symptoms, damage to blood vessels, nerves and tendons, deep venous thrombosis, pulmonary embolism and possible need for repeat surgery in the future. Complications: No complications Indications for Surgery: Severe stenosis of RCA Name of Procedure Performed PTCA of mid RCA. Shockwave lithotripsy of the mid RCA. Attempted DC cardioversion of atrial fibrillation, (unsuccessful) Procedure Details Procedure Details: Prior local anesthesia with 2% lidocaine to the right wrist and full informed consent obtained the patient was prepped and draped in usual fashion followed by placement of a six Croatian slender sheath into the radial artery followed by placement of a three five EBU guide for angioplasty and stenting of the RCA. Hemodynamics: Aortic blood pressure was 100/50. End-diastolic pressure was not measured. Coronary anatomy: The RCA is a large dominant vessel. It has moderate plaquing in his proximal and mid section. There was significant calcification of the mid and distal RCA T Ventriculography was not performed. Angioplasty was attempted with a 3.5 EBU guide which was then placed into the RCA. A Specter wire was used to cross the area of stenosis. We used a two five balloon to perform angioplasty on the mid RCA however we were unable to cross into the smaller sec shunt of the RCA also heavily calcified. We tried noncompliant balloons. It appears that the vessel was improving slightly and we tried a 2.5 shockwave balloon and performed retreat months. The balloon ruptured causing no eventualities and/or dissections. The vessel was intact. We were unable to pass a one five balloon distally. The indication for orbital atherectomy was considered however the patient has markedly diminished left ventricular function and an Impella device would be subsequently required. Given his frailty it was felt that the procedure would be too high risk at this time. The procedure was then terminated. Patient remained with BABATUNDE two flow without the ability to open the pre-existing lesion considered to be 75-80% stenosis at its mid to distal segment. We then attempted cardioversion at 1:20 a.m. joules which was unsuccessful and 200 joules consecutively also unsuccessful. Impression unsuccessful PTCA of the mid RCA. Unsuccessful cardioversion. Recommendations: Suggest EP evaluation for AV node ablation and/or cardioversion after attempted ablation of atrial fibrillation Date: 07/20/25 Preop Diagnosis: Severe CAD. Postop Diagnosis: Atrial fibrillation. Coronary artery disease Surgeon: Paul Mtz MD Anesthesiologist: Patient on ventilator, Conscious sedation Anesthesia: Mac, Local Consent: The patient was informed of the risks and benefits of the procedure. These include but are not limited to complications of anesthesia, postoperative infection, incomplete relief of symptoms, recurrence of symptoms, damage to blood vessels, nerves and tendons, deep venous thrombosis, pulmonary embolism and possible need for repeat surgery in the future. Complications: No complications Indications for Surgery: Tachy-sergio syndrome Name of Procedure Performed Micra pacemaker implantation Procedure Details Procedure Details: Prior local anesthesia with 2% lidocaine to the right groin and full informed consent obtained from family the patient was prepped and draped in usual fashion. A sheath was advanced into the right femoral vein under fluoroscopic and ultrasound guidance. We used 04/16/2012 and 16 Croatian dilators and placed a 20 Croatian sheath into the right femoral vein through which a micra Medtronic pacemaker sheath was implanted into the right atrium and interventricular septum where it was confirmed to have good capture and sensitivity thresholds as well as impedance. The micro device was subsequently disconnected from the sheath and the tethers were cut. The sheath were then removed and a [id number] stitch was used to close the skin over the femoral vein. Patient tolerated the procedure well there were no complications. A TP S, MC 2 AV AR1 micra AV 2, serial number in [id number] by Medtronic was implanted into the interventricular septum. The right ventricular R-wave was 9.9 with a pacing impedance of 1010 and a pacing threshold of 0.88 volts at 0.24 milliseconds. Impression: Successful placement of Medtronic micra permanent pacemaker implanted in RV septum without complications., sick sinus syndrome, tachy-sergio syndrome. Recommendations: Continue with negative chronotropic medication for rate control. Resume previous medications and anticoagulation if indicated. PROCEDURE(s): CXRP - CHEST PORTABLE REASON: Palpitation ORDER NUMBER(s): [id number], ACCESSION NUMBER(s): [id number] INDICATION: Palpitation TECHNIQUE: Frontal view of the chest. COMPARISON: None FINDINGS: . The heart and mediastinal contours are grossly unremarkable. There is no evidence of pleural disease. The lungs are clear. The bony structures of the chest are intact without fracture. IMPRESSION: 1. No evidence of acute disease. CHEST RADIOGRAPH Indication: central line placement Technique: Single frontal view of the chest was obtained COMPARISON: XY CHEST XRAY 1 VIEW on DOS: 06/29/25, XY CHEST PORTABLE on DOS: 06/28/25 FINDINGS: Lines and Tubes: Endotracheal tube, enteric catheter and right central venous catheter in satisfactory position. Lungs: Unchanged pulmonary vascular congestion. Pleura: No effusion. No pneumothorax. Cardiomediastinal contours: Unremarkable Bones: Unremarkable IMPRESSION: Right central venous catheter in satisfactory position. No appreciable pneumothorax. REASON: Pleural effussion ORDER NUMBER(s): [id number], ACCESSION NUMBER(s): [id number] Exam: US CHEST ULTRASOUND Clinical History: Pleural effussion Comparison: XY CHEST XRAY 1 VIEW on DOS: 07/04/25, XY CHEST PORTABLE on DOS: 07/03/25, XY CHEST XRAY 1 VIEW on DOS: 07/02/25, XY CHEST XRAY 1 VIEW on DOS: 07/01/25, XY CHEST PORTABLE on DOS: 06/30/25 Technique: Targeted sonographic evaluation of the soft tissues of the bilateral chest was obtained utilizing grayscale and color Doppler imaging. Findings/Impression: Trace right pleural effusion. No left pleural effusion. CT HEAD WITHOUT CONTRAST INDICATION: tremors COMPARISON: None TECHNIQUE: CT of the head without intravenous contrast. RADIATION DOSE: CTDIvol: 64 mGy, DLP: 1131 mGy*cm FINDINGS: There is no evidence of acute intracranial hemorrhage, extra-axial collection, mass effect, midline shift, herniation or hydrocephalus. The ventricles, sulci and cisterns are age appropriate. The purcell-white differentiation is intact. Chronic encephalomalacia is seen in the left temporoparietal lobe, likely sequelae of a remote infarct. Mucosal thickening of the bilateral maxillary sinuses. The surrounding soft tissues and osseous structures are unremarkable. IMPRESSION: 1. No acute intracranial abnormality. 2. Bilateral maxillary sinusitis. 3. Chronic encephalomalacia in the left temporoparietal lobe, likely sequelae of a remote infarct. CHEST RADIOGRAPH Indication: on vent Technique: 1 view Comparison: XY CHEST XRAY 1 VIEW on DOS: 07/06/25, XY CHEST XRAY 1 VIEW on DOS: 07/05/25, XY CHEST XRAY 1 VIEW on DOS: 07/04/25, XY CHEST PORTABLE on DOS: 07/03/25, XY CHEST XRAY 1 VIEW on DOS: 07/02/25 FINDINGS: Lines and Tubes: Unchanged. Lungs/Pleura: Unchanged. Cardiomediastinum: Unchanged. Other: Unchanged osseous structures. IMPRESSION: No significant change from the previous day. Stable support devices. Similar graded mid to basilar opacities. CHEST RADIOGRAPH Indication: on vent Technique: Single frontal view of the chest was obtained Comparison: XY CHEST XRAY 1 VIEW on DOS: 07/08/25, XY CHEST XRAY 1 VIEW on DOS: 07/07/25, XY CHEST XRAY 1 VIEW on DOS: 07/06/25 IMPRESSION: Support lines and tubes appear unchanged in satisfactory position. There is cardiomegaly. Small bilateral pleural effusions, right greater than left appear similar to prior examination with mild pulmonary vascular congestion. No significant interval change. No pneumothorax. Bilateral Chest Sonogram Clinical history: pleural effusion Technique: Limited sonographic evaluation of the right and left chest was performed. Findings/Impression: There is a trace right and no left pleural effusion. CHEST RADIOGRAPH Indication: TUBE EXCHANGE/ NG PLACEMENT Technique: Single frontal view of the chest was obtained COMPARISON: XY CHEST XRAY 1 VIEW on DOS: 07/12/25, XY CHEST XRAY 1 VIEW on DOS: 07/11/25, US CHEST ULTRASOUND on DOS: 07/10/25, XY CHEST XRAY 1 VIEW on DOS: 07/10/25, XY CHEST XRAY 1 VIEW on DOS: 07/09/25 FINDINGS: Lines and Tubes: Endotracheal tube, enteric catheter and right PICC in satisfactory position. Lungs: Unchanged multifocal airspace disease. Pleura: No effusion.No pneumothorax. Cardiomediastinal contours: Unremarkable Bones: Unremarkable IMPRESSION: Lines and tubes in satisfactory position. No significant interval change. CHEST RADIOGRAPH Indication: on vent Technique: Single frontal view of the chest was obtained Comparison: XY CHEST XRAY 1 VIEW on DOS: 07/13/25. FINDINGS: Lines and Tubes: There is a right PICC with its tip terminating in the right atrium. The enteric tube courses below the left hemidiaphragm and the tip extends outside the field of view. The endotracheal tube terminates 3.8 cm above the kolby. Lungs: Bibasilar airspace disease similar to prior study. Pleura: Similar bilateral pleural effusions. No pneumothorax. Cardiomediastinal contours: Cardiomegaly. Bones: No acute osseous abnormality. IMPRESSION: 1. Support tubes in appropriate position. 2. Bibasilar airspace disease and bilateral pleural effusions similar to prior study. EXAM: XY CHEST PORTABLE HISTORY: S/P PICC LINE PLACEMENT. COMPARISON: XY CHEST XRAY 1 VIEW on DOS: 07/14/25, XY CHEST XRAY 1 VIEW on DOS: 07/13/25, XY CHEST PORTABLE on DOS: 07/12/25, XY CHEST XRAY 1 VIEW on DOS: 07/12/25, XY CHEST XRAY 1 VIEW on DOS: 07/11/25 TECHNIQUE: Portable AP view of the chest was performed. FINDINGS: There is an endotracheal tube with its tip 3.6 cm above the kolby. OG tube tip is distal to the GE junction. There is a right subclavian central line. There is a new right upper extremity PICC line with its tip in the lower SVC. There are infiltrates and effusions in the lung bases, greater on the right. The hemidiaphragms are obscured. No pneumothorax. The heart is enlarged. The thoracic aorta is calcific. IMPRESSION: 1. Mechanical ventilation with tubes and lines as above. 2. New right upper extremity PICC line in good position. 3. Bilateral lung base infiltrates and effusions, iflgg-bggveyr-yrnk-left. EXAM: CT CT AB PEL WO CON-NO ORAL OR IV INDICATION: R/O hematoma or fluid collection on right flank TECHNIQUE: Volumetric multidetector CT images of the abdomen and pelvis were obtained without contrast. All CT scans at this facility use dose modulation, iterative reconstruction, and/or weight based dosing when appropriate to reduce radiation dose to as low as reasonably achievable. COMPARISON: None FINDINGS: [LOWER CHEST]: Small to medium right sided pleural effusion. Partial collapse of bilateral lower lobes. Coronary artery calcifications. trace pericardial effusion. [LIVER]: Normal hepatic size without suspicious focal lesion. [GALLBLADDER AND BILIARY TREE]: Presumed vicarious excretion of contrast within the gallbladder [SPLEEN]: Unremarkable. [PANCREAS]: Unremarkable. [ADRENAL GLANDS]: Unremarkable [KIDNEYS]: No hydronephrosis. No nephroureterolithiasis. Streak artifact crossing the abdomen and therefore attenuation of the kidneys can not be accurately assessed however possible retention of areas of contrast/enhancement of the kidneys suggestive of medical renal disease /injury [BLADDER]: Decompressed [REPRODUCTIVE ORGANS]: Unremarkable. [BOWEL/MESENTERY]: Decompressed with nasogastric tube. Ddmf-ra-fwdwrugc stool burden. Air-fluid level throughout the ascending to transverse colon without dilation rectal temperature probe. Minimal sigmoid diverticulosis [ASCITES]: Absent [LYMPHADENOPATHY]: No pathologically enlarged lymph nodes by CT size criteria [VASCULATURE]: No aneurysmal dilatation. [ABDOMINAL WALL]: Significant vboy-asqwrxt-fqeb-right rectus abdominis muscle hematomas. Left side demonstrates fluid fluid level compatible with varying stages of blood productsr left-sided measures 7.7 x 9 cm. Right-sided measures 4.3 x 7.8 cm. [MUSCULOSKELETAL]: No acute fracture or aggressive focal osseous lesion. Multifocal degenerative change of the visualized spine. IMPRESSION: 1. Significant ahjd-pwtddob-symn-right rectus abdominis muscle hematomas. Left side demonstrates fluid fluid level compatible with varying stages of blood productsr left-sided measures 7.7 x 9 cm. Right-sided measures 4.3 x 7.8 cm. CHEST RADIOGRAPH Indication: on vent Technique: Single frontal view of the chest was obtained COMPARISON: XY CHEST XRAY 1 VIEW on DOS: 07/17/25, XY CHEST XRAY 1 VIEW on DOS: 07/16/25, XY CHEST XRAY 1 VIEW on DOS: 07/15/25, XY CHEST PORTABLE on DOS: 07/14/25, XY CHEST XRAY 1 VIEW on DOS: 07/14/25 FINDINGS: Tracheostomy tube tip terminating 3.8 cm above the kolby. Right-sided PICC line with tip near the cavoatrial junction. NG tube in the centered in the stomach, tip extending beyond the field of view. Stable mild enlargement of the cardiac silhouette. Stable small bilateral pleural effusions with associated atelectasis/ consolidation at both lung bases. No pneumothorax or other adverse interval change. IMPRESSION: Stable findings. CHEST RADIOGRAPH Indication: on vent Technique: Single frontal view of the chest was obtained Comparison: US CHEST ULTRASOUND on DOS: 07/18/25 FINDINGS: Lines and Tubes: The endotracheal tube terminates 3.8 cm above the kolby. The enteric tube courses below the left hemidiaphragm and the tip extends outside the field of view. There is a right PICC with its tip terminating in the superior vena cava. Lungs: Bilateral lower lobe opacities. Pleura: Bilateral pleural effusions. No pneumothorax. Cardiomediastinal contours: Stable cardiomegaly. Bones: No acute osseous abnormality. IMPRESSION: 1. Bilateral lower lobe opacities and bilateral pleural effusions similar to prior study. 2. Cardiomegaly. Indication: Edema rule out DVT Comparison: None Findings: There is normal compressibility and flow augmentation in all of the imaged deep veins. There are no filling defects. The right basilic and left cephalic veins are not visualized. PICC line in the right cephalic vein. Impression: No evidence of DVT in the imaged portion of the bilateral upper extremities. MEDICAL RECORDS NUMBER: [id number] PROCEDURE: XY CHEST XRAY 1 VIEW DATE: 07/21/2025 05:37 AM HISTORY: on vent Views:1 COMPARISON: XY CHEST PORTABLE on DOS: 07/20/25, XY CHEST XRAY 1 VIEW on DOS: 07/20/25, XY CHEST XRAY 1 VIEW on DOS: 07/19/25, XY CHEST XRAY 1 VIEW on DOS: 07/18/25, XY CHEST XRAY 1 VIEW on DOS: 07/17/25 FINDINGS/IMPRESSION: Lungs: Hazy density of the right lung is concerning for infiltrates. Study is somewhat hampered by overlying soft tissues. Mediastinum: Mediastinal structures appear unremarkable.A endotracheal tube is seen with the tip projecting approximately 2 cm above the kolby.Nasogastric tube courses through the film. Skeletal: The skeletal structures appear unremarkable. CHEST RADIOGRAPH Indication: TUBE PLACEMENT Technique: XY CHEST XRAY 1 VIEW COMPARISON: 07/22/2025 FINDINGS: Endotracheal tube tip projects 4.2 cm above the kolby. Nasogastric tube projects towards stomach. Right PICC line tip projects over the SVC. The cardiac silhouette is enlarged. The lungs demonstrate bilateral patchy airspace opacities, increased from the previous examination. The pulmonary vasculature is prominent. Moderate bilateral pleural effusions.. There is no pneumothorax. IMPRESSION: As above MEDICAL RECORDS NUMBER: [id number] PROCEDURE: XY CHEST XRAY 1 VIEW DATE: 07/24/2025 04:27 AM HISTORY: on vent Views:1 COMPARISON: XY CHEST PORTABLE on DOS: 07/23/25, XY CHEST XRAY 1 VIEW on DOS: 07/22/25, XY CHEST XRAY 1 VIEW on DOS: 07/22/25, XY CHEST XRAY 1 VIEW on DOS: 07/21/25, XY CHEST PORTABLE on DOS: 07/20/25 FINDINGS/IMPRESSION: Lungs: Bibasilar infiltrates and pleural fluid is seen. Mediastinum: Mediastinal structures appear unremarkable.A endotracheal tube is seen with the tip projecting approximately 2 cm above the kolby.A right-sided central line is seen. The tip projects over the superior vena cava. No pneumothorax is seen. NG tube courses through the films Skeletal: The skeletal structures appear unremarkable. INDICATION: evaluate for acalculous cholecystitis TECHNIQUE: Multiple real-time sonographic images were obtained of the right upper quadrant. COMPARISON: XY KUB ABDOMEN SINGLE VIEW on DOS: 07/14/25 FINDINGS: The liver demonstrates heterogeneous echotexture without focal mass lesions. The liver measures 18.3 cm. There is no intrahepatic or extrahepatic ductal dilatation. The common duct measures 0.9 cm. The gallbladder is without evidence of stone or sludge. The gallbladder wall measures 0.2 cm and is within normal limits. The right kidney measures 9.2 cm. The right kidney is normal in contour, size, and shape. The echogenicity is normal. There is no hydronephrosis. The pancreas is not well visualized due to overlying bowel gas. Trace left pleural effusion. IMPRESSION: No sonographic evidence of gallstones or acute cholecystitis. Hepatic steatosis. Trace left pleural effusion. Condition at Discharge: Stable Final Diagnosis/Problems List Sedated Acute metabolic encephalopathy History of CVA-with residual aphasia, right-sided deficit ROSC s/p Cardiac arrest and CPR Newly diagnosed coronary artery disease - triple-vessel disease Dyslipidemia NSTEMI type 1 status post PCI Prolonged QT Paroxysmal atrial fibrillation with RVR End Stage Heart Failure Moderate Pulmonary Hypertension Acute hypoxic respiratory failure Pneumonia (gram +/ gram -/ aspiration) Transaminitis KEANU likely hemodynamically mediated/VMN Septic shock secondary to pneumonia (gram +/ gram -/ aspiration) -Ruled out Ventilator associated pneumonia Mild normocytic anemia Uncontrolled diabetes mellitus, HbA1c 10.6 Discharge Disposition: Acute Care Facility Discharge Instruct/Medications Diet: See Comment Diet comment: tube feedings Activity: Bed rest Follow Up/Referral: fu with [facility] Medications: per emr Discharge Statement: "Patient was advised to return to the ER or call 911 if any headaches, dizziness, shortness of breath, chest pain, abdominal pain, bleeding, fevers, or worsening of medical condition. Patient was counseled about treatment plan, medications, possible side effects, patientverbalized understanding. All questions were answered to the best of my ability. This discharge took greater then 30 minutes in planning, reviewing documentation, counseling the patient, and discussing with other team members." ASSESSMENT ASSESSMENT Assessment resp failure Date of Service: Jul 25, 2025 Billing Provider: YOBANY AGUIRRE MD Common Visit Codes: 74671-[id number] CARE 30-74 MIN, 69916-[id number] CARE-EACH +30MIN DALIA VALDOVINOS Jul 25, 2025 16:28 YOBANY AGUIRRE MD Jul 26, 2025 15:35
[2025-07-26] VITALS (112 sets, daily range): BP systolic 84–163; BP diastolic 33–66; PULSE 54–97; RESP 8–31; TEMP 97.3–99.2; O2SAT 97–100
[2025-07-26 03:45] LABS: Hematocrit 28.2 % (41.0-53.0); Hemoglobin 9.3 g/dL (13.5-17.5); Mean Corpuscular Hemoglobin 28.0 pg (28.0-32.0); Mean Corpuscular Volume 84.7 fL (80.0-100.0); Nucleated Red Blood Cells % 0.1 %
[2025-07-26 04:06] LABS: Alanine Aminotransferase 16 U/L (7-40); Alkaline Phosphatase 84 U/L (46-116); Anion Gap 9 (5-15); BUN/Creatinine Ratio 28.6 (10.0-20.0); Blood Urea Nitrogen 20 mg/dL (9-23); Potassium 3.8 mmol/L (3.5-5.1); Total Protein 6.1 g/dL (5.7-8.2)
[2025-07-26 04:09] LABS: Albumin 2.8 g/dL (3.2-4.8); Bilirubin, Total 1.4 mg/dL (0.2-1.0); Calcium 7.9 mg/dL (8.7-10.4); Carbon Dioxide 32 mmol/L (20-31); Chloride 108 mmol/L (98-107); Glucose 150 mg/dL (74-106); Sodium 149 mmol/L (136-145)
[2025-07-26 04:30] LABS: INR 1.06 (0.9-1.15); Partial Thromboplastin Time 29.1 SEC (24.5-34.5); Prothrombin Time 11.2 sec (9.3-11.8)
--- NOTE | 2025-07-26 05:16 | DVH ---
CHEST RADIOGRAPH Indication: Intubated Technique: Single frontal view of the chest was obtained COMPARISON: XY CHEST XRAY 1 VIEW on DOS: 07/25/25, XY CHEST XRAY 1 VIEW on DOS: 07/24/25, XY CHEST PORTABLE on DOS: 07/23/25, XY CHEST XRAY 1 VIEW on DOS: 07/22/25, XY CHEST XRAY 1 VIEW on DOS: 07/22/25 FINDINGS: Lines and Tubes: Endotracheal tube, enteric catheter, and right PICC in satisfactory position. Lungs: Pulmonary edema. Pleura: Possible small bilateral pleural effusions. No pneumothorax. Cardiomediastinal contours: Cardiomegaly. Bones: Unremarkable IMPRESSION: Lines and tubes in satisfactory position. No significant interval change.
[2025-07-26 07:46] LABS: Base Excess 7.1 mmol/L (-2.0-3.0)
[2025-07-26] MEDS ORDERED: CLOPIDOGREL BISULFATE 75 MG TAB PO SCH (10:00)
--- NOTE | 2025-07-26 11:27 | DVHPNRES ---
Progress Note Date Seen: Jul 26, 2025 Resident Creating Document: DALIA VALDOVINOS RESIDENT Medical Necessity Reason Pt with a Central, PICC or Fol: Yes The following are medically ne: PICC Line, Lau Catheter Reason for lau catheter: Strict I&O Subjective Review of Systems Mr. Almanza is a 74 year old male with PMHx hypertension, type 2 diabetes mellitus, dyslipidemia, paroxysmal AFib, and CVA in with left sided deficits, who presented to [facility] [place] ED due to palpitations and shortness of breath on 06/28/2025. He was found to have Afib with RVR and was placed on IV diltiazem. Patient subsequently entered in cardiac arrest with possible V-tach or Torsades de Pointes, achieving ROSC after 8 minutes of CPR, he was intubated and started on Amiodarone drip, which was later discontinued due to prolonged QTc. He was admitted for further evaluation and management. Past medical history: Hypertension, dyslipidemia, diabetes, paroxysmal atrial fibrillation diagnosed in 2016 (chads Vasc 7), 2019 CVA Past surgical history: Appendectomy Family history: Two brothers had heart disease requiring CABG at the age of 40 and 50 respectively, brother had lung cancer, mother had breast cancer Social history: with . Ex tobacco abuse (eight pack-year history of smoking) quit 30 years ago. Denies current tobacco, alcohol and other drug abuse Allergies: Denies Home medication: Pradaxa 150 mg p.o. daily, atorvastatin 40 mg p.o. daily, hydrochlorothiazide 12.5 mg p.o. daily, lisinopril 20 mg p.o. daily, glipizide, metformin a 1000 mg p.o. b.i.d., metoprolol (he quit taking for four months since it made him tired). 07/26/2025: Patient is seen in ICU. He is currently intubated, sedated, and mechanically ventilated. [facility] was contacted for transfer for tracheostomy, they stated to the patient should remain at this institution with their authorization to perform the procedure here. Per his nurse, the patient had some bradycardic episodes overnight and with a decrease of MAP towards the morning hours. He is afebrile, normocardic, with slight hypotension this morning. CBC is stable, LFTs continue to down trend. Chest Xray shows changes suggestive of increased pulmonary edema, for which one dose of lasix has been given. Due to decrease of tachy-sergio episodes, cardiology has discontinued digoxin. He has been started on Jardiance, Metoprolol, and Lisinopril for HFrEF, spironolactone will be added at a later time. We discontinued lovenox therapeutic dose due to recent history of hematoma. The patient went for tracheostomy today. Objective vital signs Vital Sign Date Time Temp Pulse Resp B/P (MAP) Pulse Ox O2 Delivery O2 Flow Rate FiO2 07/26/25 10:45 54 17 107/41 (63) 99 07/26/25 10:00 35 07/26/25 10:00 Mechanical Ventilator+ 07/26/25 08:00 99.2 99.2 Total Intake and Output 07/25/25 07/25/25 07/26/25 15:00 23:00 07:00 Intake Total 108.0 ml 1083.0 ml 565.0 ml Output Total 650 ml 650 ml Balance 108.0 ml 433.0 ml -85.0 ml medications Current Medications Medications Dose Ordered Sig/Jesse Route Start Time Stop Time Status Last Admin Dose Admin Atorvastatin Calcium 40 mg HS PO 06/29/25 22:00 07/25/25 22:30 40 MG Fentanyl Citrate 250 ml @ 2.5 mls/hr Q24H IV 06/29/25 06:15 07/26/25 04:56 12.5 MLS/HR Aspirin 81 mg DAILY PO 06/30/25 10:00 07/25/25 10:24 81 MG Insulin Human Regular HS SC 06/29/25 22:00 Cancel Insulin Human Regular AC SC 06/29/25 17:00 Cancel Pantoprazole Sodium 40 mg DAILY IV 06/30/25 10:00 07/26/25 09:54 40 MG Diagnostic Test (Pha) 1 strip IQ4HR 06/29/25 20:00 07/26/25 08:23 1 STRIP Insulin Human Regular IQ4HR SC 06/29/25 20:00 07/26/25 04:55 2 UNITS Dextrose 50 ml UD PRN IV 06/29/25 17:30 Midazolam HCl 100 ml @ 1 mls/hr Q24H IV 06/29/25 18:00 07/24/25 03:16 1 MLS/HR Enteral Nutritional Formula 1,000 ml 45ML/HR GT 06/30/25 17:15 07/19/25 20:14 1,000 ML Acetaminophen 650 mg Q4HP PRN PO 07/01/25 17:00 07/17/25 23:56 650 MG Insulin Glargine 12 units HS SC 07/06/25 22:00 07/25/25 22:38 12 UNITS Polyethylene Glycol 17 gm DAILY PO 07/08/25 10:00 07/23/25 09:04 17 GM Propofol 100 ml @ 3.225 mls/ hr Q24H IV 07/08/25 09:45 07/24/25 05:32 6.45 MLS/HR Sennosides 8.6 mg HS PO 07/10/25 22:00 07/25/25 22:26 8.6 MG Lactulose 30 ml DAILY PO 07/12/25 10:00 07/23/25 09:03 30 ML Empaglifozin 10 mg DAILY PO 07/14/25 10:00 07/25/25 10:24 10 MG Sodium Chloride 10 ml QSHIFT@10,22 IV 07/14/25 22:00 07/26/25 09:54 10 ML Norepinephrine Bitartrate 250 ml @ 3.75 mls/hr Q24H IV 07/17/25 03:15 07/20/25 17:45 3.75 MLS/HR Metoprolol Tartrate 25 mg BID PO 07/20/25 22:00 07/25/25 10:25 25 MG Labetalol HCl 10 mg Q4HP PRN IV 07/20/25 15:00 07/20/25 16:20 10 MG Purified Water 200 ml Q6HR GT 07/22/25 18:00 07/25/25 17:29 200 ML Ceftolozane/ Tazobactam 3 gm/ Dextrose 100 ml @ 100 mls/hr Q8HR IV 07/23/25 22:00 07/26/25 06:00 100 MLS/HR Lisinopril 2.5 mg DAILY GT 07/25/25 10:00 07/25/25 10:30 2.5 MG Examination General: Intubated, minimally sedated, pupils normoreactive to light HEENT: Normocephalic, atraumatic, moist mucous membranes, presence of OG tube Respiratory/pulmonary: Clear lungs bilaterally, vesicular murmurs present in almost all lung roberts, no associated crackles or wheezes. Cardiovascular: Normal heart sounds S1 and S2 with no associated murmurs Abdomen: Abdomen nondistended, there is no pain to palpation in any of the abdominal quadrants, no palpable masses. Right flank bruise Extremities: Edema noted in bilateral hands, decreased edema in bilateral legs, left lower leg has a closed, dry, healing ulcer measuring 3.5x2.6cm with adhered, dusky red and rosales eschar. Skin: No rashes or pruritus, there is no sacral edema present at this time Neurologic: Neurologic examination limited due to sedation laboratory and microbiology Laboratory Tests 07/26/25 03:10 Test 07/26/25 03:10 Range/Units Serum Glucose 150 H 74-106 mg/dL Microbiology Date/Time Source Procedure Growth Status 07/20/25 17:43 Sputum Gram Stain - Final Resulted 07/20/25 17:43 Respiratory Culture - Preliminary Pseudomonas aeruginosa Resulted 07/11/25 14:17 Blood Blood Culture - Final NO GROWTH AFTER 5 DAYS OF INCUBATION. Complete 07/01/25 22:35 Urine - Catheterized Urine Culture - Final Complete 06/29/25 04:30 Nose MRSA Screen - Final Complete Problem List/Assessment/Plan Problem List/Assessment/Plan Neurology # Sedated - Fentanyl 125 mcg/hr - Versed 1 mg - Propofol held # Acute metabolic encephalopathy # History of CVA-with residual aphasia, right-sided deficit Cardiovascular #ROSC s/p Cardiac arrest and CPR - Patient had Vtach or Torsades de Pointes on 06/28/2025 - ROSC post CPR - Patient had VFib on 07/21/2025 - ROSC post CPR #Newly diagnosed coronary artery disease - triple-vessel disease #Dyslipidemia #NSTEMI type 1 status post PCI - S/p PCI x 4 STANLEY in circumflex 06/29/2025 - S/p PCI x 3 STANLEY in LAD 07/05/2025 - S/p Unsuccessful PTCA of mid RCA, unsuccessful cardioversion - Cardiology has been reached out to to determine possibility of second attempt - Aspirin 81 mg, Clopidogrel 74 mg, Atorvastatin 40 mg - Plavix held prior to tracheostomy #Prolonged QT - Avoid Qt prolonging medications #Paroxysmal atrial fibrillation with RVR - Digoxin 250 mcg, discontinued 07/25/2025 - Metoprolol 12.5 mg p.o. b.i.d. - Micra leadless pacemaker placed, interrogated by [employer] 07/25/2025, currently set at 60 . #End Stage Heart Failure - Echocardiogram (06/29/2025): lvef 20%, moderate LV enlargement, severe end stage HF, RV dysfunction, aortic sclerosis, moderate MAC, mild cathy regurg, mild tricuspid regurg ,moderate pulm htn - Jardiance 10 mg NG daily - Lisinopril 2.5 mg NG daily - Metoprolol 12.5 mg NG BID daily - Per cardio, Spironolactone to be started once blood pressure is more stable # Left Pleural Effusion: - Chest Xray: The cardiac silhouette is enlarged. The lungs demonstrate bilateral patchy airspace opacities. The pulmonary vasculature is prominent. Moderate bilateral pleural effusions, qazxo-ozjkqcj-bxqc-left. There is no pneumothorax. - Lasix 20 mg IV once #Moderate Pulmonary Hypertension Respiratory # Ventilator -intubated (06/28/2024) -extubated (07/20/2025) -reintubated (07/20/2025) -on [facility] vent : VCAC Mode RR 18 TV 400ml, PEEP Of 5 and FiO2 of 35% -S/p Tracheostomy 07/26/2025 # Acute hypoxic respiratory failure - Ventilator settings: AC mode, RR 18, VT 400, PEEP 5, FiO2 35% - S/p Tracheostomy 07/26/2025 # Pneumonia (gram +/ gram -/ aspiration) # Ruled out Ventilator associated pneumonia - Chest x-ray: Similar bilateral inferior graded opacities, likely a combination of airspace disease and pleural effusion. 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 Hepatic steatosis. Trace left pleural effusion. # Peptic ulcer prophylaxis -Pantoprazole 40 mg IV daily # Lau catheter draining clear urine Nephrology #KEANU likely hemodynamically mediated/VMN -Lasix was given onver -Strict Is and Os -Avoid nephrotoxic drugs Infectious disease #Septic shock secondary to pneumonia (gram +/ gram -/ aspiration) -Chest x-ray: Similar bilateral inferior graded opacities, likely a combination of airspace disease and pleural effusion. 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 - Blood cultures: negative, culture from 07/01/2025 possibly contaminated - Urine culture: No growth after 48 hours - Sputum culture 06/29: Normal oropharyngeal jessica - Ceftolozone - tazobactam (zerbaxa) 07/23/2025 - Meropenem (07/04-07/19) - Zosyn (07/19-07/23) - Vancomycin (07/02/2025- 07/20/2025) -Patient is no longer on pressors Hem/onc # Mild normocytic anemia - Monitor H&H Endocrine #Uncontrolled diabetes mellitus, HbA1c 10.6 - Insulin sliding scale DVT prophylaxis: Lovenox held due to previous rectus femoris hematoma PUD prophylaxis: Protonix 40 mg IV daily Nutrition: Vital High Protein Formula Lines Airway: Intubated via ETT on 06/29. RE intubated on 07/21. Vascular Access: Central line 06/29 Drips: Fentanyl, Versed Critical care time 67 minutes excluding procedure. Code status discussed greater than 20 minutes: Full CODE STATUS. Family at bedside explained about the condition of the patient Plan discussed with Dr. Aguirre Plan discussed with: Spouse, Other (Nurse) My Orders My Orders Orders - DALIA VALDOVINOS RESIDENT Procedure Category Date Status Time * Party Plan Dealer CONS 07/25/25 Transmitted Consult 16:18 Chest Xray 1 View XY 07/26/25 Resulted 04:00 Abg W/ Co-Ox RT 07/26/25 Logged 07:00 Dietary Evaluation Review Comments: 1. Protein needs based on 1.2-1.5g/protein/kg IBW d/t low GFR 2. While being intubated, offer TF Vital HP @45ml/hr, in 24 hr, Pt will receive 94g protein, 1080lkcal 903ml free water, meeting pts needs at 97% protein and 100% energy. 3. Consider TPN to meet pt's needs if Pt does not tolerate TF well. 4. Reassess when pt extubated, advance to CCHO-60 PO diet after passing a BENDING MACHINE OPERATOR evluation. Expected Outcomes/Goals: off intubation, advance to CCHO-60 Cardiac diet, gradual wt loss Date of Service: Jul 27, 2025 Billing Provider: YOBANY AGUIRRE MD Common Visit Codes: [id number] CARE 30-74 MIN DALIA VALDOVINOS Jul 26, 2025 11:27 YOBANY AGUIRRE MD Jul 27, 2025 11:56
[2025-07-26] MEDS: NOREPINEPHRINE 8 MG/250ML KIT 250 ML IV ONE (11:32)
[2025-07-26] MEDS: Lidocaine/Epinephrine 1%-1:100,000 30ML VL ONE (13:35)
[2025-07-26] MEDS ORDERED: fentaNYL CITRATE 100 MCG/2 ML VL ONE (13:39)
--- NOTE | 2025-07-26 14:41 | DVHOP ---
DATE OF SURGERY: 07/26/2025 PREOPERATIVE DIAGNOSIS: Ventilator-dependent respiratory failure. POSTOPERATIVE DIAGNOSIS: Ventilator-dependent respiratory failure. SURGEON: Salomon Marroquin MD. HYDROGRAPHIC SURVEYOR: Joby Arguelles NP. ANESTHESIA: General. NURSE AFFILIATE MANAGER: Myron. DESCRIPTION OF PROCEDURE: Under adequate anesthesia with the patient's skin prepped and draped, a vertical incision was made in the anterior surface of the neck, deepened through subcutaneous tissues and adipose tissues. Strap muscle was divided in the midline and retracted laterally. The thyroid was displaced superiorly. Tissue swept off the anterior surface of the tracheal cartilages. The cartilage between the 4th and 5th ring was divided in an H-shaped fashion. The cartilage was retracted laterally. The tracheotomy was dilated. A size 8 cuffed tracheostomy tube was then advanced into its final position as the anesthesiologist pulled out the endotracheal tube. The tracheostomy reaching its final position, was secured with insufflation with 7 mL of air into the cuff. There was an immediate return to normal gas exchange and CO2 capture. Two Prolene sutures were securing the tracheal bridge as well as a circumferential umbilical tape. The patient remained in unchanged clinical condition at the termination of the procedure. Chest x-ray was ordered and is pending at this time. The patient's , Hemalatha, was thoroughly informed at [phone]. Salomon Marroquin MD PF/BERONICA TID: [id number] RECEIPT: [id number]
--- NOTE | 2025-07-26 14:51 | DVHPN2 ---
Consult Progress Note Objective vital signs Vital Sign Date Time Temp Pulse Resp B/P (MAP) Pulse Ox O2 Delivery O2 Flow Rate FiO2 07/26/25 13:00 86 26 98 07/26/25 12:00 97.9 97.9 07/26/25 12:00 35 07/26/25 12:00 Mechanical Ventilator+ Total Intake and Output 07/25/25 07/25/25 07/26/25 15:00 23:00 07:00 Intake Total 108.0 ml 1083.0 ml 565.0 ml Output Total 650 ml 650 ml Balance 108.0 ml 433.0 ml -85.0 ml medications Current Medications Medications Dose Ordered Sig/Jesse Route Start Time Stop Time Status Last Admin Dose Admin Atorvastatin Calcium 40 mg HS PO 06/29/25 22:00 07/25/25 22:30 40 MG Fentanyl Citrate 250 ml @ 2.5 mls/hr Q24H IV 06/29/25 06:15 07/26/25 04:56 12.5 MLS/HR Aspirin 81 mg DAILY PO 06/30/25 10:00 07/25/25 10:24 81 MG Insulin Human Regular HS SC 06/29/25 22:00 Cancel Insulin Human Regular AC SC 06/29/25 17:00 Cancel Pantoprazole Sodium 40 mg DAILY IV 06/30/25 10:00 07/26/25 09:54 40 MG Diagnostic Test (Pha) 1 strip IQ4HR 06/29/25 20:00 07/26/25 11:48 1 STRIP Insulin Human Regular IQ4HR SC 06/29/25 20:00 07/26/25 04:55 2 UNITS Dextrose 50 ml UD PRN IV 06/29/25 17:30 Midazolam HCl 100 ml @ 1 mls/hr Q24H IV 06/29/25 18:00 07/24/25 03:16 1 MLS/HR Enteral Nutritional Formula 1,000 ml 45ML/HR GT 06/30/25 17:15 07/19/25 20:14 1,000 ML Acetaminophen 650 mg Q4HP PRN PO 07/01/25 17:00 07/17/25 23:56 650 MG Insulin Glargine 12 units HS SC 07/06/25 22:00 07/25/25 22:38 12 UNITS Polyethylene Glycol 17 gm DAILY PO 07/08/25 10:00 07/23/25 09:04 17 GM Propofol 100 ml @ 3.225 mls/ hr Q24H IV 07/08/25 09:45 07/24/25 05:32 6.45 MLS/HR Sennosides 8.6 mg HS PO 07/10/25 22:00 07/25/25 22:26 8.6 MG Lactulose 30 ml DAILY PO 07/12/25 10:00 07/23/25 09:03 30 ML Empaglifozin 10 mg DAILY PO 07/14/25 10:00 07/25/25 10:24 10 MG Sodium Chloride 10 ml QSHIFT@10,22 IV 07/14/25 22:00 07/26/25 09:54 10 ML Norepinephrine Bitartrate 250 ml @ 3.75 mls/hr Q24H IV 07/17/25 03:15 07/20/25 17:45 3.75 MLS/HR Metoprolol Tartrate 25 mg BID PO 07/20/25 22:00 07/25/25 10:25 25 MG Labetalol HCl 10 mg Q4HP PRN IV 07/20/25 15:00 07/20/25 16:20 10 MG Purified Water 200 ml Q6HR GT 07/22/25 18:00 07/25/25 17:29 200 ML Ceftolozane/ Tazobactam 3 gm/ Dextrose 100 ml @ 100 mls/hr Q8HR IV 07/23/25 22:00 07/26/25 06:00 100 MLS/HR Lisinopril 2.5 mg DAILY GT 07/25/25 10:00 07/25/25 10:30 2.5 MG laboratory and microbiology Laboratory Tests 07/26/25 03:10 Test 07/26/25 03:10 Range/Units Serum Glucose 150 H 74-106 mg/dL Problem List/Assessment/Plan Problem List/Assessment/Plan ASSESSMENT AND PLAN: ID Problem List: -Pneumonia with sputum cultures positive for Pseudomonas aeruginosa and Serratia marcescens (hospital-acquired/ventilator-associated context) -Acute respiratory failure requiring endotracheal intubation and mechanical ventilation -Recurrent ventricular arrhythmias (ventricular tachycardia and torsades de pointes) with cardiac arrest x2 (ROSC after 8 minutes; ROSC after 6 minutes); prolonged QTc -Paroxysmal atrial fibrillation with RVR; unsuccessful DC cardioversion during this admission -Severe multivessel coronary artery disease with ischemic cardiomyopathy; subacute thrombosis of the circumflex -s/p PCI: successful PTCA/stent of occluded circumflex; subsequent revascularization procedures to LAD and mid RCA (per dates below) -Sick sinus syndrome/tachyarrhythmia; Medtronic permanent pacemaker implanted into the RV septum without complication -Hyperbilirubinemia (total bilirubin up to 2.2) with otherwise normal liver enzymes -Rectus abdominis hematoma on CT A/P -Type 2 diabetes mellitus -Hypertension -Prior ischemic stroke (2019) with chronic right-sided deficits; limited mobility (assisted/wheelchair) Assessment: This is a 74-year-old male with hypertension, paroxysmal AF (2016; prior electrical cardioversion), and ischemic stroke in 2019 with chronic right-sided deficits, who presented with AF with RVR and progressed to ventricular arrhythmias (VT, torsades) with cardiac arrests requiring ACLS (ROSC at 8 minutes; later ROSC at 6 minutes). He is intubated and sedated with a prolonged QTc; on amiodarone with magnesium. Coronary angiography showed severe triple- vessel CAD with subacute circumflex thrombosis, ischemic cardiomyopathy, and elevated LVEDP; he underwent PCI to the circumflex with additional staged revascularizations to the LAD and mid RCA. DC cardioversion for AF was unsuccessful. A permanent Medtronic pacemaker was implanted in the RV septum for sick sinus/tachyarrhythmia. Pulmonary course notable for mixed pulmonary opacities/edema on imaging. Sputum cultures grew Pseudomonas aeruginosa and Serratia marcescens. He received broad- spectrum therapy (vancomycin with cefepime/Zosyn, later vancomycin with meropenem for inadequate response). Leukopenia on 07/19 resolved; Tmax 99.7F on 07/19 without documented fevers otherwise. Total bilirubin kenia to 2.2 with otherwise normal liver enzymes. CT A/P showed a rectus abdominis hematoma. He remains intubated with FiO2 ~35%. Plan: -Antimicrobial therapy: -Transition antipseudomonal coverage to ceftolozanetazobactam (Zerbaxa) to target Pseudomonas per culture context. -Discontinue piperacillintazobactam (Zosyn) if still active. -Prior regimens included vancomycin and meropenem; reconcile to avoid unnecessary duplicate gram-negative coverage. -Proposed duration for current targeted therapy: 7 days. 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 -Comment: Zithromax referenced in transcript is not appropriate monotherapy for Pseudomonas; proceed with antipseudomonal beta-lactam as above. -Respiratory care: -Continue mechanical ventilation per ICU/pulmonology with goal SpO2 >92%. -Monitor FiO2 requirements and sputum burden; implement frequent airway secretion clearance. -Daily chest radiograph to track resolution of opacities. -Hemodynamics: -Maintain MAP ?65 mmHg per ICU protocol. -Hepatobiliary: -Obtain abdominal ultrasound to evaluate elevated bilirubin and assess for acalculous cholecystitis. -Arrhythmia/CV management: -Defer to cardiology for ongoing management of severe CAD, ischemic cardiomyopathy, recurrent AF, and pacemaker programming. -Strict avoidance of QT-prolonging agents (e.g., fluoroquinolones) given torsades and prolonged QTc history. -Thrombosis/bleeding: -Acknowledge rectus abdominis hematoma; coordinate anticoagulation/antiplatelet strategy with cardiology/ICU in context of recent PCI, DAPT, and bleeding risk. -Monitoring/Follow-up: -Trend bilirubin/LFTs. -Monitor CBC and renal function while on antipseudomonal therapy. -Repeat sputum cultures based on clinical course. Authorized and Performed by: sheryl gaston md Total critical care time: Approximately 76 minutes Due to a high probability of clinically significant, life threatening deterioration, the patient required my highest level of preparedness to intervene emergently and I personally spent this critical care time directly and personally managing the patient. This critical care time included obtaining a history; examining the patient; pulse oximetry; ordering and review of studies; arranging urgent treatment with development of a management plan; evaluation of patient's response to treatment; frequent reassessment; and, discussions with other providers. This critical care time was performed to assess and manage the high probability of imminent, life-threatening deterioration that could result in multi-organ failure. It was exclusive of separately billable procedures and treating other patients and teaching time. Isolation Precautions: standard Assessment and plan discussed with the care team. Plan subject to change pending new data; updates may be added as an addendum. Thank you for the consult. ID will continue to follow. Please contact Infectious Diseases for any questions or concerns. )))))))))))))))))))))))))))))))))))))))))))))))))))))))))))))))))))))))))))))))) )))))))))))))))))))))))))))))))))))))))))))))))))))))))))) PHYSICAL EXAM: General: NAD Neck: Supple. No masses. HEENT: PERRL. Normal lids and conjunctiva. Moist mucous membranes. Oropharynx without lesions, exudates or excessive erythema. Normal appearance of the external aspects of the nose and ears. Heart: Regular rhythm, normal rate. No murmur. No lower extremity edema. Lungs: Mechanically ventilated via endotracheal tube. No wheezes. No crackles. Abdomen: Soft. Non-tender. Non-distended. No masses or abdominal hernia. Msk: No digital cyanosis. Normal strength and tone in all 4 limbs. Skin: Warm and dry, no rashes. Neuro: Sedated and intubated. No facial droop or slurred speech. Extra-ocular movements intact. Sensation intact to soft touch in all 4 limbs. Psych: Unable to assess due to intubation and sedation. Oriented to person, place, time, and situation: Unable to assess due to intubation and sedation. Dietary Evaluation Review Comments: 1. Protein needs based on 1.2-1.5g/protein/kg IBW d/t low GFR 2. While being intubated, offer TF Vital HP @45ml/hr, in 24 hr, Pt will receive 94g protein, 1080lkcal 903ml free water, meeting pts needs at 97% protein and 100% energy. 3. Consider TPN to meet pt's needs if Pt does not tolerate TF well. 4. Reassess when pt extubated, advance to CCHO-60 PO diet after passing a MECHANICAL MAINTENANCE INSTRUCTOR evluation. Expected Outcomes/Goals: off intubation, advance to CCHO-60 Cardiac diet, gradual wt loss SHERYL GASTON MD Jul 26, 2025 14:51
--- NOTE | 2025-07-26 15:01 | DVH ---
CHEST RADIOGRAPH Indication: TRACHEOSTOMY Technique: Single frontal view of the chest was obtained Comparison: XY CHEST XRAY 1 VIEW on DOS: 07/26/25, XY CHEST XRAY 1 VIEW on DOS: 07/25/25, XY CHEST XRAY 1 VIEW on DOS: 07/24/25 FINDINGS: Lines and Tubes: Endotracheal tube has been removed and a tracheostomy tube is now in place 4.8 cm above the kolby. PICC line in place in the right arm with the tip superior vena cava above the right atrium. Lungs: Right lower lobe airspace disease and possible pleural effusion. Possible airspace disease or atelectasis is noted in the right paratracheal area.. Pleura: No effusion. No pneumothorax. Cardiomediastinal contours: Unremarkable Bones: No acute osseous abnormality. IMPRESSION: 1. Tracheostomy tube 4.8 cm above the kolby. 2. PICC line from right arm in place with the tip in the superior vena cava. 3. Catheter in place with the left chest tip not seen. 4. Airspace disease right lower lobe and right upper lobe.
--- NOTE | 2025-07-26 16:29 | DVH ---
CHEST RADIOGRAPH Indication: NG Tube placement Technique: XY CHEST PORTABLE COMPARISON: None FINDINGS: Tracheostomy tube tip projects 4.7 cm above the kolby. Nasogastric tube projects towards stomach. Right PICC line tip projects over the SVC. The cardiac silhouette is enlarged. The lungs demonstrate bilateral patchy airspace opacities. The pulmonary vasculature is prominent. Moderate bilateral pleural effusions, [id number]. There is no pneumothorax. IMPRESSION: As above
[2025-07-26] MEDS: FUROSEMIDE 20 MG/2 ML VIAL IV ONE (17:38)
[2025-07-27] VITALS (108 sets, daily range): BP systolic 104–167; BP diastolic 35–126; PULSE 49–135; RESP 8–30; TEMP 96.3–99.6; O2SAT 97–100
[2025-07-27 00:46] LABS: Hematocrit 30.3 % (41.0-53.0); Hemoglobin 9.7 g/dL (13.5-17.5); Mean Corpuscular Hemoglobin 27.0 pg (28.0-32.0); Mean Corpuscular Volume 84.9 fL (80.0-100.0); Nucleated Red Blood Cells % 0.0 %
[2025-07-27 00:56] LABS: Alanine Aminotransferase 14 U/L (7-40); Alkaline Phosphatase 94 U/L (46-116); Anion Gap 11 (5-15); BUN/Creatinine Ratio 25.8 (10.0-20.0); Blood Urea Nitrogen 17 mg/dL (9-23); Carbon Dioxide 29 mmol/L (20-31); Magnesium 2.1 mg/dL (1.6-2.6); Potassium 3.7 mmol/L (3.5-5.1); Total Protein 6.5 g/dL (5.7-8.2)
[2025-07-27 01:00] LABS: Albumin 3.0 g/dL (3.2-4.8); Bilirubin, Total 1.6 mg/dL (0.2-1.0); Calcium 8.0 mg/dL (8.7-10.4); Chloride 107 mmol/L (98-107); Glucose 122 mg/dL (74-106); Sodium 147 mmol/L (136-145)
[2025-07-27] MEDS: POTASSIUM EFFERVESENT TAB 25 MEQ GT ONE ×2 (02:19→12:03)
[2025-07-27 03:16] LABS: INR 1.08 (0.9-1.15); Partial Thromboplastin Time 28.2 SEC (24.5-34.5); Prothrombin Time 11.4 sec (9.3-11.8)
--- NOTE | 2025-07-27 05:41 | DVH ---
CHEST RADIOGRAPH Indication: Post tracheostomy Technique: Single frontal view of the chest was obtained COMPARISON: XY CHEST PORTABLE on DOS: 07/26/25, XY CHEST XRAY 1 VIEW on DOS: 07/26/25, XY CHEST XRAY 1 VIEW on DOS: 07/26/25, XY CHEST XRAY 1 VIEW on DOS: 07/25/25, XY CHEST XRAY 1 VIEW on DOS: 07/24/25 FINDINGS: Lines and Tubes: Tracheostomy and enteric catheter and right PICC in satisfactory position. Lungs: Pulmonary edema. Pleura: Small bilateral pleural effusions, right greater than left. No pneumothorax. Cardiomediastinal contours: Cardiomegaly. Bones: Unremarkable IMPRESSION: Lines and tubes in satisfactory position. No significant interval change.
[2025-07-27 06:59] LABS: Base Excess 5.6 mmol/L (-2.0-3.0)
[2025-07-27 07:07] LABS: Urine Budding Yeast LOADED /hpf (None Seen); Urine Protein, UAD 1+ (Negative)
--- NOTE | 2025-07-27 09:20 | DVHPNRES ---
Progress Note Date Seen: Jul 27, 2025 Resident Creating Document: DALIA VALDOVINOS RESIDENT Medical Necessity Reason Pt with a Central, PICC or Fol: Yes The following are medically ne: PICC Line, Lau Catheter Reason for lau catheter: Strict I&O Subjective Review of Systems Mr. 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 He was found to have Afib with RVR and was placed on IV diltiazem. Patient subsequently entered in cardiac arrest with possible V-tach or Torsades de Pointes, achieving ROSC after 8 minutes of CPR, he was intubated and started on Amiodarone drip, which was later discontinued due to prolonged QTc. He was admitted for further evaluation and management. Past medical history: Hypertension, dyslipidemia, diabetes, paroxysmal atrial fibrillation diagnosed in 2016 (chads Vasc 7), 2019 CVA Past surgical history: Appendectomy Family history: Two brothers had heart disease requiring CABG at the age of 40 and 50 respectively, brother had lung cancer, mother had breast cancer Social history: with . Ex tobacco abuse (eight pack-year history of smoking) quit 30 years ago. Denies current tobacco, alcohol and other drug abuse Allergies: Denies Home medication: Pradaxa 150 mg p.o. daily, atorvastatin 40 mg p.o. daily, hydrochlorothiazide 12.5 mg p.o. daily, lisinopril 20 mg p.o. daily, glipizide, metformin a 1000 mg p.o. b.i.d., metoprolol (he quit taking for four months since it made him tired). 07/27/2025: Patient seen in ICU. S/p tracheostomy yesterday. Sedation has been decreased. Per his nurse, the patient presented questionable bradycardic episodes overnight, however upon futher review of telemetry information heart rate taken by pulse oximeter is within normal range. Labs were ordered over night due to presence of ectopi on EKG, showing leukocytosis with neutrophilia and UA suggestive of UTI, urine culture was taken. Patient is afebrile, normocardic, and normotensive. Repeat labs shows downtrending WBCs, with subtle drop in Hb. Yesterday it was noted that patient was bleeding from area around tracheostomy, which persists today. Per General Surgery's recommendation, the we will continue holding plavix and aspirin. Additionally surgical snow has been placed around the area. Due to finding of yeast in UA, micafungin has been started and Lau catheter has been exchanged. 07/26/2025: Patient is seen in ICU. He is currently intubated, sedated, and mechanically ventilated. [facility] was contacted for transfer for tracheostomy, they stated to the patient should remain at this institution with their authorization to perform the procedure here. Per his nurse, the patient had some bradycardic episodes overnight and with a decrease of MAP towards the morning hours. He is afebrile, normocardic, with slight hypotension this morning. CBC is stable, LFTs continue to down trend. Chest Xray shows changes suggestive of increased pulmonary edema, for which one dose of lasix has been given. Due to decrease of tachy-sergio episodes, cardiology has discontinued digoxin. He has been started on Jardiance, Metoprolol, and Lisinopril for HFrEF, spironolactone will be added at a later time. We discontinued lovenox therapeutic dose due to recent history of hematoma. The patient went for tracheostomy today. Objective vital signs Vital Sign Date Time Temp Pulse Resp B/P (MAP) Pulse Ox O2 Delivery O2 Flow Rate FiO2 07/27/25 07:15 82 23 124/48 (73) 99 30 07/27/25 05:44 Mechanical Ventilator+ 07/27/25 04:00 99.6 99.6 Total Intake and Output 07/26/25 07/26/25 07/27/25 15:00 23:00 07:00 Intake Total 124.0 ml 224.0 ml 948.5 ml Output Total 100 ml 1275 ml Balance 124.0 ml 124.0 ml -326.5 ml medications Current Medications Medications Dose Ordered Sig/Jesse Route Start Time Stop Time Status Last Admin Dose Admin Atorvastatin Calcium 40 mg HS PO 06/29/25 22:00 07/26/25 22:22 40 MG Fentanyl Citrate 250 ml @ 2.5 mls/hr Q24H IV 06/29/25 06:15 07/26/25 04:56 12.5 MLS/HR Aspirin 81 mg DAILY PO 06/30/25 10:00 07/25/25 10:24 81 MG Insulin Human Regular HS SC 06/29/25 22:00 Cancel Insulin Human Regular AC SC 06/29/25 17:00 Cancel Pantoprazole Sodium 40 mg DAILY IV 06/30/25 10:00 07/26/25 09:54 40 MG Diagnostic Test (Pha) 1 strip IQ4HR 06/29/25 20:00 07/27/25 04:40 1 STRIP Insulin Human Regular IQ4HR SC 06/29/25 20:00 07/26/25 04:55 2 UNITS Dextrose 50 ml UD PRN IV 06/29/25 17:30 Midazolam HCl 100 ml @ 1 mls/hr Q24H IV 06/29/25 18:00 07/26/25 16:16 3 MLS/HR Enteral Nutritional Formula 1,000 ml 45ML/HR GT 06/30/25 17:15 07/19/25 20:14 1,000 ML Acetaminophen 650 mg Q4HP PRN PO 07/01/25 17:00 07/17/25 23:56 650 MG Insulin Glargine 12 units HS SC 07/06/25 22:00 07/26/25 22:27 12 UNITS Polyethylene Glycol 17 gm DAILY PO 07/08/25 10:00 07/23/25 09:04 17 GM Propofol 100 ml @ 3.225 mls/ hr Q24H IV 07/08/25 09:45 07/24/25 05:32 6.45 MLS/HR Sennosides 8.6 mg HS PO 07/10/25 22:00 07/26/25 22:22 8.6 MG Lactulose 30 ml DAILY PO 07/12/25 10:00 07/23/25 09:03 30 ML Empaglifozin 10 mg DAILY PO 07/14/25 10:00 07/25/25 10:24 10 MG Sodium Chloride 10 ml QSHIFT@10,22 IV 07/14/25 22:00 07/26/25 22:26 10 ML Norepinephrine Bitartrate 250 ml @ 3.75 mls/hr Q24H IV 07/17/25 03:15 07/20/25 17:45 3.75 MLS/HR Metoprolol Tartrate 25 mg BID PO 07/20/25 22:00 07/26/25 22:25 25 MG Labetalol HCl 10 mg Q4HP PRN IV 07/20/25 15:00 07/20/25 16:20 10 MG Purified Water 200 ml Q6HR GT 07/22/25 18:00 07/27/25 05:28 200 ML Ceftolozane/ Tazobactam 3 gm/ Dextrose 100 ml @ 100 mls/hr Q8HR IV 07/23/25 22:00 07/27/25 05:28 100 MLS/HR Lisinopril 2.5 mg DAILY GT 07/25/25 10:00 07/25/25 10:30 2.5 MG Examination General: Tracheostomy, minimally sedated, pupils normoreactive to light HEENT: Normocephalic, atraumatic, moist mucous membranes, presence of NG tube Respiratory/pulmonary: Clear lungs bilaterally, vesicular murmurs present in almost all lung roberts, no associated crackles or wheezes, presence of tracheostomy with clotted blood around insertion Cardiovascular: Normal heart sounds S1 and S2 with no associated murmurs Abdomen: Abdomen nondistended, there is no pain to palpation in any of the abdominal quadrants, no palpable masses. Right flank bruise Extremities: Edema noted in bilateral hands, decreased edema in bilateral legs, left lower leg has a closed, dry, healing ulcer measuring 3.5x2.6cm with adhered, dusky red and rosales eschar. Skin: No rashes or pruritus, there is no sacral edema present at this time Neurologic: Neurologic examination limited due to sedation laboratory and microbiology Laboratory Tests 07/26/25 23:45 Test 07/26/25 23:45 Range/Units Serum Glucose 122 H 74-106 mg/dL Microbiology Date/Time Source Procedure Growth Status 07/20/25 17:43 Sputum Gram Stain - Final Resulted 07/20/25 17:43 Respiratory Culture - Preliminary Pseudomonas aeruginosa Resulted 07/11/25 14:17 Blood Blood Culture - Final NO GROWTH AFTER 5 DAYS OF INCUBATION. Complete 07/01/25 22:35 Urine - Catheterized Urine Culture - Final Complete 06/29/25 04:30 Nose MRSA Screen - Final Complete Problem List/Assessment/Plan Problem List/Assessment/Plan Neurology # Sedated - Fentanyl 125 mcg/hr - Versed 1 mg - Propofol held # Acute metabolic encephalopathy # History of CVA-with residual aphasia, right-sided deficit Cardiovascular #ROSC s/p Cardiac arrest and CPR - Patient had Vtach or Torsades de Pointes on 06/28/2025 - ROSC post CPR - Patient had VFib on 07/21/2025 - ROSC post CPR #Newly diagnosed coronary artery disease - triple-vessel disease #Dyslipidemia #NSTEMI type 1 status post PCI - S/p PCI x 4 STANLEY in circumflex 06/29/2025 - S/p PCI x 3 STANLEY in LAD 07/05/2025 - S/p Unsuccessful PTCA of mid RCA, unsuccessful cardioversion - Cardiology has been reached out to to determine possibility of second attempt - Aspirin 81 mg, Clopidogrel 74 mg, Atorvastatin 40 mg - Plavix and Aspirin will be held due to bleeding around tracheostomy site. Will reevaluate tomorrow. #Prolonged QT - Avoid Qt prolonging medications #Paroxysmal atrial fibrillation with RVR - Digoxin 250 mcg, discontinued 07/25/2025 - Metoprolol 12.5 mg p.o. b.i.d. - Micra leadless pacemaker placed, interrogated by [employer] 07/25/2025, currently set at 60 . #End Stage Heart Failure - Echocardiogram (06/29/2025): lvef 20%, moderate LV enlargement, severe end stage HF, RV dysfunction, aortic sclerosis, moderate MAC, mild cathy regurg, mild tricuspid regurg ,moderate pulm htn - Jardiance 10 mg NG daily - Lisinopril 2.5 mg NG daily - Metoprolol 12.5 mg NG BID daily - Per cardio, Spironolactone to be started once blood pressure is more stable # Left Pleural Effusion: - Chest Xray: The cardiac silhouette is enlarged. The lungs demonstrate bilateral patchy airspace opacities. The pulmonary vasculature is prominent. Moderate bilateral pleural effusions, [id number]. There is no pneumothorax. - Lasix 20 mg IV once #Moderate Pulmonary Hypertension Respiratory # Ventilator -intubated (06/28/2024) -extubated (07/20/2025) -reintubated (07/20/2025) -on [facility] vent : VCAC Mode RR 18 TV 400ml, PEEP Of 5 and FiO2 of 35% -S/p Tracheostomy 07/26/2025 # Acute hypoxic respiratory failure - Ventilator settings: AC mode, RR 18, VT 400, PEEP 5, FiO2 35% - S/p Tracheostomy 07/26/2025 - Will begin collar trial with 1 hour BID # Pneumonia (gram +/ gram -/ aspiration) # Ruled out Ventilator associated pneumonia - Chest x-ray: Similar bilateral inferior graded opacities, likely a combination of airspace disease and pleural effusion. 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 Hepatic steatosis. Trace left pleural effusion. # Peptic ulcer prophylaxis -Pantoprazole 40 mg IV daily # Lau catheter draining clear urine # Complicated UTI - Micafungin 100 mg IV daily - Urine culture has been ordered and is pending Nephrology #KEANU likely hemodynamically mediated/VMN -Lasix was given -Strict Is and Os -Avoid nephrotoxic drugs Infectious disease #Septic shock secondary to pneumonia (gram +/ gram -/ aspiration) -Chest x-ray: Similar bilateral inferior graded opacities, likely a combination of airspace disease and pleural effusion. 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 - Blood cultures: negative, culture from 07/01/2025 possibly contaminated - Urine culture: No growth after 48 hours - Sputum culture 06/29: Normal oropharyngeal jessica - Ceftolozone - tazobactam (zerbaxa) 07/23/2025 - Meropenem (07/04-07/19) - Zosyn (07/19-07/23) - Vancomycin (07/02/2025- 07/20/2025) -Patient is no longer on pressors #Complicated UTI - Micafungin (07/27): 100 mg IV daily - Urine culture has been ordered and is pending Hem/onc # Mild normocytic anemia - Monitor H&H Endocrine #Uncontrolled diabetes mellitus, HbA1c 10.6 - Insulin sliding scale DVT prophylaxis: Lovenox held due to previous rectus femoris hematoma PUD prophylaxis: Protonix 40 mg IV daily Nutrition: Vital High Protein Formula Lines Airway: Intubated via ETT on 06/29. RE intubated on 07/21. Vascular Access: Central line 06/29 Lau: 06/29, Exchanged: 07/27 Drips: Fentanyl, Versed Critical care time 67 minutes excluding procedure. Code status discussed greater than 20 minutes: Full CODE STATUS. Family at bedside explained about the condition of the patient Plan discussed with Dr. Aguirre Plan discussed with: Spouse, Other (Nurse) My Orders My Orders Orders - DALIA VALDOVINOS RESIDENT Procedure Category Date Status Time Chest Portable XY 07/26/25 Resulted 15:14 Chest Xray 1 View XY 07/27/25 Resulted 04:00 Abg W/ Co-Ox RT 07/27/25 Logged 04:00 Abg W/ Co-Ox RT 07/27/25 Logged 07:00 Complete Blood Count LAB 07/27/25 Logged 08:36 Comprehensive LAB 07/27/25 Logged Metabolic Panel 08:36 Ok To Change Lau ORDERS 07/27/25 Transmitted 08:37 Dietary Evaluation Review Comments: 1. Protein needs based on 1.2-1.5g/protein/kg IBW d/t low GFR 2. While being intubated, offer TF Vital HP @45ml/hr, in 24 hr, Pt will receive 94g protein, 1080lkcal 903ml free water, meeting pts needs at 97% protein and 100% energy. 3. Consider TPN to meet pt's needs if Pt does not tolerate TF well. 4. Reassess when pt extubated, advance to CCHO-60 PO diet after passing a [employer] evluation. Expected Outcomes/Goals: off intubation, advance to CCHO-60 Cardiac diet, gradual wt loss Date of Service: Jul 27, 2025 Billing Provider: YOBANY AGUIRRE MD Common Visit Codes: [id number] CARE 30-74 MIN DALIA VALDOVINOS Jul 27, 2025 09:20 YOBANY AGUIRRE MD Jul 29, 2025 12:34
[2025-07-27 10:29] LABS: Hematocrit 29.0 % (41.0-53.0); Hemoglobin 9.3 g/dL (13.5-17.5); Mean Corpuscular Hemoglobin 27.2 pg (28.0-32.0); Mean Corpuscular Volume 84.9 fL (80.0-100.0); Nucleated Red Blood Cells % 0.0 %
[2025-07-27 10:48] LABS: Alanine Aminotransferase 13 U/L (7-40); Alkaline Phosphatase 92 U/L (46-116); Anion Gap 10 (5-15); BUN/Creatinine Ratio 31.7 (10.0-20.0); Blood Urea Nitrogen 20 mg/dL (9-23); Carbon Dioxide 31 mmol/L (20-31); Chloride 106 mmol/L (98-107); Potassium 3.6 mmol/L (3.5-5.1); Total Protein 6.2 g/dL (5.7-8.2)
[2025-07-27 11:02] LABS: Albumin 2.8 g/dL (3.2-4.8); Bilirubin, Total 1.7 mg/dL (0.2-1.0); Calcium 7.8 mg/dL (8.7-10.4); Glucose 130 mg/dL (74-106); Sodium 147 mmol/L (136-145)
[2025-07-27] MEDS: MICAFUNGIN SODIUM 100 MG in SODIUM CHL 0.9% 100 ML IV ONE (12:11)
--- NOTE | 2025-07-27 13:28 | DVHPN2 ---
Progress Note Date Seen: Jul 27, 2025 Medical Necessity Reason Pt with a Central, PICC or Fol: Yes The following are medically ne: PICC Line, Lau Catheter Reason for lau catheter: Strict I&O Objective vital signs Vital Sign Date Time Temp Pulse Resp B/P (MAP) Pulse Ox O2 Delivery O2 Flow Rate FiO2 07/27/25 12:01 76 19 150/48 (82) 97 30 07/27/25 10:00 Mechanical Ventilator+ 07/27/25 08:00 96.3 96.3 Total Intake and Output 07/26/25 07/26/25 07/27/25 15:00 23:00 07:00 Intake Total 124.0 ml 224.0 ml 963.0 ml Output Total 100 ml 1275 ml Balance 124.0 ml 124.0 ml -312.0 ml medications Current Medications Medications Dose Ordered Sig/Jesse Route Start Time Stop Time Status Last Admin Dose Admin Atorvastatin Calcium 40 mg HS PO 06/29/25 22:00 07/26/25 22:22 40 MG Fentanyl Citrate 250 ml @ 2.5 mls/hr Q24H IV 06/29/25 06:15 07/26/25 04:56 12.5 MLS/HR Aspirin 81 mg DAILY PO 06/30/25 10:00 07/25/25 10:24 81 MG Insulin Human Regular HS SC 06/29/25 22:00 Cancel Insulin Human Regular AC SC 06/29/25 17:00 Cancel Pantoprazole Sodium 40 mg DAILY IV 06/30/25 10:00 07/27/25 09:15 40 MG Diagnostic Test (Pha) 1 strip IQ4HR 06/29/25 20:00 07/27/25 12:06 1 STRIP Insulin Human Regular IQ4HR SC 06/29/25 20:00 07/26/25 04:55 2 UNITS Dextrose 50 ml UD PRN IV 06/29/25 17:30 Midazolam HCl 100 ml @ 1 mls/hr Q24H IV 06/29/25 18:00 07/26/25 16:16 3 MLS/HR Enteral Nutritional Formula 1,000 ml 45ML/HR GT 06/30/25 17:15 07/19/25 20:14 1,000 ML Acetaminophen 650 mg Q4HP PRN PO 07/01/25 17:00 07/17/25 23:56 650 MG Insulin Glargine 12 units HS SC 07/06/25 22:00 07/26/25 22:27 12 UNITS Polyethylene Glycol 17 gm DAILY PO 07/08/25 10:00 07/27/25 09:14 17 GM Propofol 100 ml @ 3.225 mls/ hr Q24H IV 07/08/25 09:45 07/24/25 05:32 6.45 MLS/HR Sennosides 8.6 mg HS PO 07/10/25 22:00 07/26/25 22:22 8.6 MG Lactulose 30 ml DAILY PO 07/12/25 10:00 07/23/25 09:03 30 ML Empaglifozin 10 mg DAILY PO 07/14/25 10:00 07/27/25 09:15 10 MG Sodium Chloride 10 ml QSHIFT@10,22 IV 07/14/25 22:00 07/27/25 09:15 10 ML Norepinephrine Bitartrate 250 ml @ 3.75 mls/hr Q24H IV 07/17/25 03:15 07/20/25 17:45 3.75 MLS/HR Metoprolol Tartrate 25 mg BID PO 07/20/25 22:00 07/27/25 09:16 25 MG Labetalol HCl 10 mg Q4HP PRN IV 07/20/25 15:00 07/20/25 16:20 10 MG Purified Water 200 ml Q6HR GT 07/22/25 18:00 07/27/25 12:06 200 ML Ceftolozane/ Tazobactam 3 gm/ Dextrose 100 ml @ 100 mls/hr Q8HR IV 07/23/25 22:00 07/27/25 05:28 100 MLS/HR Lisinopril 2.5 mg DAILY GT 07/25/25 10:00 07/27/25 09:15 2.5 MG Micafungin Sodium 100 mg/Sodium Chloride 100 ml @ 100 mls/hr DAILY IV 07/28/25 10:00 laboratory and microbiology Laboratory Tests 07/27/25 09:35 Test 07/27/25 09:35 Range/Units Serum Glucose 130 H 74-106 mg/dL Problem List/Assessment/Plan Problem List/Assessment/Plan 07/27/25 clotted blood and mucus at tracheostomy insertion site, cleaned away: no evidence of on going bleeding, tracheostomy in good position on X ray, both lungs fully inflated, advise against any anticoagulants today and tomorrow. will re evaluate Plan discussed with: Other Dietary Evaluation Review Comments: 1. Protein needs based on 1.2-1.5g/protein/kg IBW d/t low GFR 2. While being intubated, offer TF Vital HP @45ml/hr, in 24 hr, Pt will receive 94g protein, 1080lkcal 903ml free water, meeting pts needs at 97% protein and 100% energy. 3. Consider TPN to meet pt's needs if Pt does not tolerate TF well. 4. Reassess when pt extubated, advance to CCHO-60 PO diet after passing a [employer] evluation. Expected Outcomes/Goals: off intubation, advance to CCHO-60 Cardiac diet, gradual wt loss FAUSTO DUENAS MD Jul 27, 2025 13:28
[2025-07-27] MEDS: FUROSEMIDE 20 MG/2 ML VIAL IV ONE (14:05)
--- NOTE | 2025-07-27 22:19 | DVHPN2 ---
Consult Progress Note Date Seen: Jul 27, 2025 Subjective Patient reports: Feels better (leukocytosis sp tracheostomy) Objective vital signs Vital Sign Date Time Temp Pulse Resp B/P (MAP) Pulse Ox O2 Delivery O2 Flow Rate FiO2 07/27/25 21:49 82 162/57 07/27/25 20:43 28 99 30 07/27/25 20:00 Mechanical Ventilator+ 07/27/25 16:00 97.9 97.9 07/27/25 13:44 10 Total Intake and Output 07/26/25 07/26/25 07/27/25 15:00 23:00 07:00 Intake Total 124.0 ml 224.0 ml 963.0 ml Output Total 100 ml 1275 ml Balance 124.0 ml 124.0 ml -312.0 ml medications Current Medications Medications Dose Ordered Sig/Jesse Route Start Time Stop Time Status Last Admin Dose Admin Atorvastatin Calcium 40 mg HS PO 06/29/25 22:00 07/27/25 21:49 40 MG Fentanyl Citrate 250 ml @ 2.5 mls/hr Q24H IV 06/29/25 06:15 07/26/25 04:56 12.5 MLS/HR Aspirin 81 mg DAILY PO 06/30/25 10:00 07/25/25 10:24 81 MG Insulin Human Regular HS SC 06/29/25 22:00 Cancel Insulin Human Regular AC SC 06/29/25 17:00 Cancel Pantoprazole Sodium 40 mg DAILY IV 06/30/25 10:00 07/27/25 09:15 40 MG Diagnostic Test (Pha) 1 strip IQ4HR 06/29/25 20:00 07/27/25 20:00 1 STRIP Insulin Human Regular IQ4HR SC 06/29/25 20:00 07/27/25 20:56 2 UNITS Dextrose 50 ml UD PRN IV 06/29/25 17:30 Midazolam HCl 100 ml @ 1 mls/hr Q24H IV 06/29/25 18:00 07/26/25 16:16 3 MLS/HR Enteral Nutritional Formula 1,000 ml 45ML/HR GT 06/30/25 17:15 07/19/25 20:14 1,000 ML Acetaminophen 650 mg Q4HP PRN PO 07/01/25 17:00 07/17/25 23:56 650 MG Insulin Glargine 12 units HS SC 07/06/25 22:00 07/27/25 21:50 12 UNITS Polyethylene Glycol 17 gm DAILY PO 07/08/25 10:00 07/27/25 09:14 17 GM Propofol 100 ml @ 3.225 mls/ hr Q24H IV 07/08/25 09:45 07/24/25 05:32 6.45 MLS/HR Sennosides 8.6 mg HS PO 07/10/25 22:00 07/27/25 21:49 8.6 MG Lactulose 30 ml DAILY PO 07/12/25 10:00 07/23/25 09:03 30 ML Empaglifozin 10 mg DAILY PO 07/14/25 10:00 07/27/25 09:15 10 MG Sodium Chloride 10 ml QSHIFT@10,22 IV 07/14/25 22:00 07/27/25 21:49 10 ML Norepinephrine Bitartrate 250 ml @ 3.75 mls/hr Q24H IV 07/17/25 03:15 07/20/25 17:45 3.75 MLS/HR Metoprolol Tartrate 25 mg BID PO 07/20/25 22:00 07/27/25 21:49 25 MG Labetalol HCl 10 mg Q4HP PRN IV 07/20/25 15:00 07/20/25 16:20 10 MG Purified Water 200 ml Q6HR GT 07/22/25 18:00 07/27/25 16:58 200 ML Ceftolozane/ Tazobactam 3 gm/ Dextrose 100 ml @ 100 mls/hr Q8HR IV 07/23/25 22:00 07/27/25 21:49 100 MLS/HR Lisinopril 2.5 mg DAILY GT 07/25/25 10:00 07/27/25 09:15 2.5 MG Micafungin Sodium 100 mg/Sodium Chloride 100 ml @ 100 mls/hr DAILY IV 07/28/25 10:00 laboratory and microbiology Laboratory Tests 07/27/25 09:35 Test 07/27/25 09:35 Range/Units Serum Glucose 130 H 74-106 mg/dL Problem List/Assessment/Plan Problem List/Assessment/Plan ASSESSMENT AND PLAN: ID Problem List: -Pneumonia with sputum cultures positive for Pseudomonas aeruginosa and Serratia marcescens (hospital-acquired/ventilator-associated context) -Acute respiratory failure requiring endotracheal intubation and mechanical ventilation -Recurrent ventricular arrhythmias (ventricular tachycardia and torsades de pointes) with cardiac arrest x2 (ROSC after 8 minutes; ROSC after 6 minutes); prolonged QTc -Paroxysmal atrial fibrillation with RVR; unsuccessful DC cardioversion during this admission -Severe multivessel coronary artery disease with ischemic cardiomyopathy; subacute thrombosis of the circumflex -s/p PCI: successful PTCA/stent of occluded circumflex; subsequent revascularization procedures to LAD and mid RCA (per dates below) -Sick sinus syndrome/tachyarrhythmia; Medtronic permanent pacemaker implanted into the RV septum without complication -Hyperbilirubinemia (total bilirubin up to 2.2) with otherwise normal liver enzymes -Rectus abdominis hematoma on CT A/P -Type 2 diabetes mellitus -Hypertension -Prior ischemic stroke (2019) with chronic right-sided deficits; limited mobility (assisted/wheelchair) Assessment: This is a 74-year-old male with hypertension, paroxysmal AF (2016; prior electrical cardioversion), and ischemic stroke in 2019 with chronic right-sided deficits, who presented with AF with RVR and progressed to ventricular arrhythmias (VT, torsades) with cardiac arrests requiring ACLS (ROSC at 8 minutes; later ROSC at 6 minutes). He is intubated and sedated with a prolonged QTc; on amiodarone with magnesium. Coronary angiography showed severe triple- vessel CAD with subacute circumflex thrombosis, ischemic cardiomyopathy, and elevated LVEDP; he underwent PCI to the circumflex with additional staged revascularizations to the LAD and mid RCA. DC cardioversion for AF was unsuccessful. A permanent Medtronic pacemaker was implanted in the RV septum for sick sinus/tachyarrhythmia. Pulmonary course notable for mixed pulmonary opacities/edema on imaging. Sputum cultures grew Pseudomonas aeruginosa and Serratia marcescens. He received broad- spectrum therapy (vancomycin with cefepime/Zosyn, later vancomycin with meropenem for inadequate response). Leukopenia on 07/19 resolved; Tmax 99.7F on 07/19 without documented fevers otherwise. Total bilirubin kenia to 2.2 with otherwise normal liver enzymes. CT A/P showed a rectus abdominis hematoma. He remains intubated with FiO2 ~35%. 07/24: off all pressors 07/25: RUQ wo acute cholecystitis 07/26: sp tracheostomy, Plan: -Antimicrobial therapy: -continue ceftolozanetazobactam (Zerbaxa) to target Pseudomonas per culture context. -Proposed duration for current targeted therapy: 7 days -10 days -Respiratory care: -Continue mechanical ventilation per ICU/pulmonology with goal SpO2 >92%. -Monitor FiO2 requirements and sputum burden; implement frequent airway secretion clearance. -Daily chest radiograph to track resolution of opacities. -Hemodynamics: -Maintain MAP ?65 mmHg per ICU protocol. -Hepatobiliary: -Obtain abdominal ultrasound to evaluate elevated bilirubin and assess for acalculous cholecystitis. -Arrhythmia/CV management: -Defer to cardiology for ongoing management of severe CAD, ischemic cardiomyopathy, recurrent AF, and pacemaker programming. -Strict avoidance of QT-prolonging agents (e.g., fluoroquinolones) given torsades and prolonged QTc history. -Thrombosis/bleeding: -Acknowledge rectus abdominis hematoma; coordinate anticoagulation/antiplatelet strategy with cardiology/ICU in context of recent PCI, DAPT, and bleeding risk. -Monitoring/Follow-up: -Trend bilirubin/LFTs. -Monitor CBC and renal function while on antipseudomonal therapy. -Repeat sputum cultures based on clinical course. Authorized and Performed by: sheryl gaston md Total critical care time: Approximately 76 minutes Due to a high probability of clinically significant, life threatening deterioration, the patient required my highest level of preparedness to intervene emergently and I personally spent this critical care time directly and personally managing the patient. This critical care time included obtaining a history; examining the patient; pulse oximetry; ordering and review of studies; arranging urgent treatment with development of a management plan; evaluation of patient's response to treatment; frequent reassessment; and, discussions with other providers. This critical care time was performed to assess and manage the high probability of imminent, life-threatening deterioration that could result in multi-organ failure. It was exclusive of separately billable procedures and treating other patients and teaching time. Isolation Precautions: standard Assessment and plan discussed with the care team. Plan subject to change pending new data; updates may be added as an addendum. Thank you for the consult. ID will continue to follow. Please contact Infectious Diseases for any questions or concerns. )))))))))))))))))))))))))))))))))))))))))))))))))))))))))))))))))))))))))))))))) )))))))))))))))))))))))))))))))))))))))))))))))))))))))))) PHYSICAL EXAM: General: NAD Neck: Supple. No masses. HEENT: PERRL. Normal lids and conjunctiva. Moist mucous membranes. Oropharynx without lesions, exudates or excessive erythema. Normal appearance of the external aspects of the nose and ears. Heart: Regular rhythm, normal rate. No murmur. No lower extremity edema. Lungs: Mechanically ventilated via endotracheal tube. No wheezes. No crackles. Abdomen: Soft. Non-tender. Non-distended. No masses or abdominal hernia. Msk: No digital cyanosis. Normal strength and tone in all 4 limbs. Skin: Warm and dry, no rashes. Neuro: Sedated and intubated. No facial droop or slurred speech. Extra-ocular movements intact. Sensation intact to soft touch in all 4 limbs. Psych: Unable to assess due to intubation and sedation. Oriented to person, place, time, and situation: Unable to assess due to intubation and sedation. Plan discussed with: Patient Dietary Evaluation Review Comments: 1. Protein needs based on 1.2-1.5g/protein/kg IBW d/t low GFR 2. While being intubated, offer TF Vital HP @45ml/hr, in 24 hr, Pt will receive 94g protein, 1080lkcal 903ml free water, meeting pts needs at 97% protein and 100% energy. 3. Consider TPN to meet pt's needs if Pt does not tolerate TF well. 4. Reassess when pt extubated, advance to CCHO-60 PO diet after passing a [employer] evluation. Expected Outcomes/Goals: off intubation, advance to CCHO-60 Cardiac diet, gradual wt loss SHERYL GASTON MD Jul 27, 2025 22:19
[2025-07-28] VITALS (109 sets, daily range): BP systolic 112–190; BP diastolic 39–97; PULSE 60–107; RESP 6–29; TEMP 98–99.8; O2SAT 93–100
[2025-07-28 04:03] LABS: Hematocrit 29.6 % (41.0-53.0); Hemoglobin 9.5 g/dL (13.5-17.5); Mean Corpuscular Hemoglobin 28.0 pg (28.0-32.0); Mean Corpuscular Volume 87.0 fL (80.0-100.0); Nucleated Red Blood Cells % 0.2 %
[2025-07-28 04:21] LABS: INR 1.11 (0.9-1.15); Partial Thromboplastin Time 29.9 SEC (24.5-34.5); Prothrombin Time 11.6 sec (9.3-11.8)
[2025-07-28 04:32] LABS: Alanine Aminotransferase 14 U/L (7-40); Alkaline Phosphatase 97 U/L (46-116); Anion Gap 12 (5-15); BUN/Creatinine Ratio 29.7 (10.0-20.0); Blood Urea Nitrogen 19 mg/dL (9-23); Carbon Dioxide 31 mmol/L (20-31); Chloride 104 mmol/L (98-107); Glucose 85 mg/dL (74-106); Magnesium 2.1 mg/dL (1.6-2.6); Potassium 3.5 mmol/L (3.5-5.1); Total Protein 6.6 g/dL (5.7-8.2)
[2025-07-28 04:35] LABS: Albumin 3.0 g/dL (3.2-4.8); Bilirubin, Total 2.0 mg/dL (0.2-1.0); Calcium 8.2 mg/dL (8.7-10.4); Sodium 147 mmol/L (136-145)
[2025-07-28] MEDS ORDERED: POTASSIUM CHL 20MEQ/100ML 100 ML IV ONE (05:00)
[2025-07-28] MEDS: POTASSIUM CHL 20MEQ/100ML 100 ML IV ONE ×4 (05:42→09:08)
--- NOTE | 2025-07-28 07:09 | DVH ---
CHEST RADIOGRAPH Indication: Eval lung parenchyma and pleural effusion Technique: Single frontal view of the chest was obtained Comparison: XY CHEST XRAY 1 VIEW on DOS: 07/27/25. FINDINGS: Lines and Tubes: There is a right PICC with its tip terminating in the superior vena cava. The enteric tube courses below the left hemidiaphragm and the tip extends outside the field of view. Tracheostomy tube is unchanged. Lungs: Bibasilar airspace disease. Pleura: No effusion. No pneumothorax. Cardiomediastinal contours: Cardiomegaly. Bones: No acute osseous abnormality. IMPRESSION: 1. Appropriate position of the support lines and tubes. 2. Bibasilar airspace disease similar to prior study.
[2025-07-28 07:30] LABS: Base Excess 5.4 mmol/L (-2.0-3.0)
[2025-07-28] MEDS: MICAFUNGIN SODIUM 100 MG in SODIUM CHL 0.9% 100 ML IV SCH (08:22)
--- NOTE | 2025-07-28 09:27 | DVHPN2 ---
Progress Note Date Seen: Jul 28, 2025 Medical Necessity Reason Pt with a Central, PICC or Fol: Yes The following are medically ne: PICC Line, Lau Catheter Reason for lau catheter: Strict I&O Objective vital signs Vital Sign Date Time Temp Pulse Resp B/P (MAP) Pulse Ox O2 Delivery O2 Flow Rate FiO2 07/28/25 08:45 86 15 112/91 (98) 100 07/28/25 08:00 Mechanical Ventilator+ 35 35 07/28/25 08:00 99.4 99.4 07/27/25 13:44 10 Total Intake and Output 07/27/25 07/27/25 07/28/25 15:00 23:00 07:00 Intake Total 156.0 ml 365 ml 651 ml Output Total 1900 ml 750 ml Balance 156.0 ml -1535 ml -99 ml medications Current Medications Medications Dose Ordered Sig/Jesse Route Start Time Stop Time Status Last Admin Dose Admin Atorvastatin Calcium 40 mg HS PO 06/29/25 22:00 07/27/25 21:49 40 MG Fentanyl Citrate 250 ml @ 2.5 mls/hr Q24H IV 06/29/25 06:15 07/28/25 06:01 5 MLS/HR Aspirin 81 mg DAILY PO 06/30/25 10:00 07/25/25 10:24 81 MG Insulin Human Regular HS SC 06/29/25 22:00 Cancel Insulin Human Regular AC SC 06/29/25 17:00 Cancel Pantoprazole Sodium 40 mg DAILY IV 06/30/25 10:00 07/28/25 08:21 40 MG Diagnostic Test (Pha) 1 strip IQ4HR 06/29/25 20:00 07/28/25 08:09 1 STRIP Insulin Human Regular IQ4HR SC 06/29/25 20:00 07/27/25 23:57 2 UNITS Dextrose 50 ml UD PRN IV 06/29/25 17:30 Midazolam HCl 100 ml @ 1 mls/hr Q24H IV 06/29/25 18:00 07/26/25 16:16 3 MLS/HR Enteral Nutritional Formula 1,000 ml 45ML/HR GT 06/30/25 17:15 07/19/25 20:14 1,000 ML Acetaminophen 650 mg Q4HP PRN PO 07/01/25 17:00 07/17/25 23:56 650 MG Insulin Glargine 12 units HS SC 07/06/25 22:00 07/27/25 21:50 12 UNITS Polyethylene Glycol 17 gm DAILY PO 07/08/25 10:00 07/27/25 09:14 17 GM Propofol 100 ml @ 3.225 mls/ hr Q24H IV 07/08/25 09:45 07/24/25 05:32 6.45 MLS/HR Sennosides 8.6 mg HS PO 07/10/25 22:00 07/27/25 21:49 8.6 MG Lactulose 30 ml DAILY PO 07/12/25 10:00 07/23/25 09:03 30 ML Empaglifozin 10 mg DAILY PO 07/14/25 10:00 07/28/25 08:23 10 MG Sodium Chloride 10 ml QSHIFT@10,22 IV 07/14/25 22:00 07/28/25 08:21 10 ML Norepinephrine Bitartrate 250 ml @ 3.75 mls/hr Q24H IV 07/17/25 03:15 07/20/25 17:45 3.75 MLS/HR Metoprolol Tartrate 25 mg BID PO 07/20/25 22:00 07/28/25 08:22 25 MG Labetalol HCl 10 mg Q4HP PRN IV 07/20/25 15:00 07/20/25 16:20 10 MG Purified Water 200 ml Q6HR GT 07/22/25 18:00 07/28/25 05:58 200 ML Ceftolozane/ Tazobactam 3 gm/ Dextrose 100 ml @ 100 mls/hr Q8HR IV 07/23/25 22:00 07/28/25 07:00 100 MLS/HR Lisinopril 2.5 mg DAILY GT 07/25/25 10:00 07/28/25 08:23 2.5 MG Micafungin Sodium 100 mg/Sodium Chloride 100 ml @ 100 mls/hr DAILY IV 07/28/25 10:00 07/28/25 08:22 100 MLS/HR laboratory and microbiology Laboratory Tests 07/28/25 03:35 Test 07/28/25 03:35 Range/Units Serum Glucose 85 74-106 mg/dL Problem List/Assessment/Plan Problem List/Assessment/Plan 07/27/25 clotted blood and mucus at tracheostomy insertion site, cleaned away: no evidence of on going bleeding, tracheostomy in good position on X ray, both lungs fully inflated, advise against any anticoagulants today and tomorrow. will re evaluate 07/28/25 improved, tracheostomy with minimal bleeding from retaining sutures, no intraluminal bleeding, will sign off, please recal if needed Plan discussed with: Patient, Other Dietary Evaluation Review Comments: 1. Protein needs based on 1.2-1.5g/protein/kg IBW d/t low GFR 2. While being intubated, offer TF Vital HP @45ml/hr, in 24 hr, Pt will receive 94g protein, 1080lkcal 903ml free water, meeting pts needs at 97% protein and 100% energy. 3. Consider TPN to meet pt's needs if Pt does not tolerate TF well. 4. 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 Expected Outcomes/Goals: off intubation, advance to CCHO-60 Cardiac diet, gradual wt loss FAUSTO DUENAS MD Jul 28, 2025 09:27
--- NOTE | 2025-07-28 09:40 | DVH ---
CHEST RADIOGRAPH Indication: on vent Technique: Single frontal view of the chest was obtained Comparison: XY CHEST XRAY 1 VIEW on DOS: 07/10/25, XY CHEST XRAY 1 VIEW on DOS: 07/09/25, XY CHEST XRAY 1 VIEW on DOS: 07/08/25, XY CHEST XRAY 1 VIEW on DOS: 07/07/25, XY CHEST XRAY 1 VIEW on DOS: 07/06/25, XY CHEST XRAY 1 VIEW on DOS: 07/10/25 FINDINGS: Lines and Tubes: Endotracheal tube, enteric catheter and right PICC in satisfactory position. Lungs: Airspace disease. Pleura: No effusion. No pneumothorax. Cardiomediastinal contours: Unchanged cardiomegaly. Bones: Unremarkable IMPRESSION: 1. Lines and tubes in satisfactory position. 2. No significant interval change. CARR
--- NOTE | 2025-07-28 11:13 | DVH ---
Bilateral Upper Extremity Venous Duplex Date: 07/28/2025 09:11 AM Clinical History: Edema Comparison: US BI LAT UPPER DVT on DOS: 07/20/25 Findings: Duplex Doppler evaluation of the venous systems of the right and left lower neck and upper extremities including color Doppler and spectral/pulsed waveform analysis was performed. RIGHT SIDE: The internal jugular vein demonstrates appropriate compressibility and waveform variability. The subclavian vein is patent on color Doppler evaluation without intraluminal thrombus and demonstrates waveform variability. The visualized portion of the brachiocephalic vein is patent on color Doppler evaluation without intraluminal thrombus and demonstrates waveform variability. The axillary vein demonstrates appropriate compressibility and waveform variability. The brachial veins demonstrate appropriate compressibility and patency on Doppler evaluation. The basilic vein demonstrates appropriate compressibility and patency on Doppler evaluation. The cephalic vein demonstrates appropriate compressibility and patency on Doppler evaluation. LEFT SIDE: The internal jugular vein demonstrates appropriate compressibility and waveform variability. The subclavian vein is patent on color Doppler evaluation without intraluminal thrombus and demonstrates waveform variability. The visualized portion of the brachiocephalic vein is patent on color Doppler evaluation without intraluminal thrombus and demonstrates waveform variability. The axillary vein demonstrates appropriate compressibility and waveform variability. The brachial veins demonstrate appropriate compressibility and patency on Doppler evaluation. The basilic vein demonstrates appropriate compressibility and patency on Doppler evaluation. Cephalic thrombus noted IMPRESSION: No DVT RUE Cephalic veins thrombus in the left upper extremity. If clinical concern/symptoms persist or worsen, short-interval follow-up study is suggested. END IMPRESSION:
[2025-07-28] MEDS: hydrALAZINE HCL 20 MG/ML VL IV ONE (15:15)
--- NOTE | 2025-07-28 16:03 | DVHPNRES ---
Progress Note Date Seen: Jul 28, 2025 Resident Creating Document: DALIA VALDOVINOS RESIDENT Medical Necessity Reason Pt with a Central, PICC or Fol: Yes The following are medically ne: PICC Line, Lau Catheter Reason for lau catheter: Strict I&O Subjective Review of Systems Mr. 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 He was found to have Afib with RVR and was placed on IV diltiazem. Patient subsequently entered in cardiac arrest with possible V-tach or Torsades de Pointes, achieving ROSC after 8 minutes of CPR, he was intubated and started on Amiodarone drip, which was later discontinued due to prolonged QTc. He was admitted for further evaluation and management. Past medical history: Hypertension, dyslipidemia, diabetes, paroxysmal atrial fibrillation diagnosed in 2016 (chads Vasc 7), 2019 CVA Past surgical history: Appendectomy Family history: Two brothers had heart disease requiring CABG at the age of 40 and 50 respectively, brother had lung cancer, mother had breast cancer Social history: with . Ex tobacco abuse (eight pack-year history of smoking) quit 30 years ago. Denies current tobacco, alcohol and other drug abuse Allergies: Denies Home medication: Pradaxa 150 mg p.o. daily, atorvastatin 40 mg p.o. daily, hydrochlorothiazide 12.5 mg p.o. daily, lisinopril 20 mg p.o. daily, glipizide, metformin a 1000 mg p.o. b.i.d., metoprolol (he quit taking for four months since it made him tired). 07/28/2025: Patient is seen in the ICU. S/p Tracheostomy, minimally sedated, connected to mechanical ventilator, not on pressors. Per nurse, no overnight events to report. The patient is afebrile, normocardic, with stable blood pressure. Labs are stable. Bleeding around trach has improved. Per surgery, he may be started on Plavix and aspirin tomorrow. He successfully tolerated 1 hour trach collar, with only elevation of blood pressure observed during this time. Increased edema of left arm was noted today, venous duplex US was ordered showing clot in the cephalic vein. The patient has been accepted for transfer to [facility]. 07/27/2025: Patient seen in ICU. S/p tracheostomy yesterday. Sedation has been decreased. Per his nurse, the patient presented questionable bradycardic episodes overnight, however upon futher review of telemetry information heart rate taken by pulse oximeter is within normal range. Labs were ordered over night due to presence of ectopi on EKG, showing leukocytosis with neutrophilia and UA suggestive of UTI, urine culture was taken. Patient is afebrile, normocardic, and normotensive. Repeat labs shows downtrending WBCs, with subtle drop in Hb. Yesterday it was noted that patient was bleeding from area around tracheostomy, which persists today. Per General Surgery's recommendation, the we will continue holding plavix and aspirin. Additionally surgical snow has been placed around the area. Due to finding of yeast in UA, micafungin has been started and Lau catheter has been exchanged. 07/26/2025: Patient is seen in ICU. He is currently intubated, sedated, and mechanically ventilated. [facility] was contacted for transfer for tracheostomy, they stated to the patient should remain at this institution with their authorization to perform the procedure here. Per his nurse, the patient had some bradycardic episodes overnight and with a decrease of MAP towards the morning hours. He is afebrile, normocardic, with slight hypotension this morning. CBC is stable, LFTs continue to down trend. Chest Xray shows changes suggestive of increased pulmonary edema, for which one dose of lasix has been given. Due to decrease of tachy-sergio episodes, cardiology has discontinued digoxin. He has been started on Jardiance, Metoprolol, and Lisinopril for HFrEF, spironolactone will be added at a later time. We discontinued lovenox therapeutic dose due to recent history of hematoma. The patient went for tracheostomy today. Objective vital signs Vital Sign Date Time Temp Pulse Resp B/P (MAP) Pulse Ox O2 Delivery O2 Flow Rate FiO2 07/28/25 15:46 77 22 157/70 (99) 100 07/28/25 14:00 30 07/28/25 14:00 Mechanical Ventilator+ 07/28/25 12:16 98.9 98.9 07/27/25 13:44 10 Total Intake and Output 07/27/25 07/27/25 07/28/25 15:00 23:00 07:00 Intake Total 156.0 ml 365 ml 656 ml Output Total 1900 ml 750 ml Balance 156.0 ml -1535 ml -94 ml medications Current Medications Medications Dose Ordered Sig/Jesse Route Start Time Stop Time Status Last Admin Dose Admin Atorvastatin Calcium 40 mg HS PO 06/29/25 22:00 07/27/25 21:49 40 MG Fentanyl Citrate 250 ml @ 2.5 mls/hr Q24H IV 06/29/25 06:15 07/28/25 06:01 5 MLS/HR Aspirin 81 mg DAILY PO 06/30/25 10:00 07/25/25 10:24 81 MG Insulin Human Regular HS SC 06/29/25 22:00 Cancel Insulin Human Regular AC SC 06/29/25 17:00 Cancel Pantoprazole Sodium 40 mg DAILY IV 06/30/25 10:00 07/28/25 08:21 40 MG Diagnostic Test (Pha) 1 strip IQ4HR 06/29/25 20:00 07/28/25 11:20 1 STRIP Insulin Human Regular IQ4HR SC 06/29/25 20:00 07/27/25 23:57 2 UNITS Dextrose 50 ml UD PRN IV 06/29/25 17:30 Midazolam HCl 100 ml @ 1 mls/hr Q24H IV 06/29/25 18:00 07/26/25 16:16 3 MLS/HR Enteral Nutritional Formula 1,000 ml 45ML/HR GT 06/30/25 17:15 07/19/25 20:14 1,000 ML Acetaminophen 650 mg Q4HP PRN PO 07/01/25 17:00 07/17/25 23:56 650 MG Insulin Glargine 12 units HS SC 07/06/25 22:00 07/27/25 21:50 12 UNITS Polyethylene Glycol 17 gm DAILY PO 07/08/25 10:00 07/27/25 09:14 17 GM Propofol 100 ml @ 3.225 mls/ hr Q24H IV 07/08/25 09:45 07/24/25 05:32 6.45 MLS/HR Sennosides 8.6 mg HS PO 07/10/25 22:00 07/27/25 21:49 8.6 MG Lactulose 30 ml DAILY PO 07/12/25 10:00 07/23/25 09:03 30 ML Empaglifozin 10 mg DAILY PO 07/14/25 10:00 07/28/25 08:23 10 MG Sodium Chloride 10 ml QSHIFT@10,22 IV 07/14/25 22:00 07/28/25 08:21 10 ML Norepinephrine Bitartrate 250 ml @ 3.75 mls/hr Q24H IV 07/17/25 03:15 07/20/25 17:45 3.75 MLS/HR Metoprolol Tartrate 25 mg BID PO 07/20/25 22:00 07/28/25 08:22 25 MG Labetalol HCl 10 mg Q4HP PRN IV 07/20/25 15:00 07/20/25 16:20 10 MG Purified Water 200 ml Q6HR GT 07/22/25 18:00 07/28/25 13:28 200 ML Ceftolozane/ Tazobactam 3 gm/ Dextrose 100 ml @ 100 mls/hr Q8HR IV 07/23/25 22:00 07/28/25 13:47 100 MLS/HR Lisinopril 2.5 mg DAILY GT 07/25/25 10:00 07/28/25 08:23 2.5 MG Micafungin Sodium 100 mg/Sodium Chloride 100 ml @ 100 mls/hr DAILY IV 07/28/25 10:00 07/28/25 08:22 100 MLS/HR Examination General: Tracheostomy, minimally sedated, pupils normoreactive to light HEENT: Normocephalic, atraumatic, moist mucous membranes, presence of NG tube Respiratory/pulmonary: Clear lungs bilaterally, vesicular murmurs present in almost all lung roberts, no associated crackles or wheezes, presence of tracheostomy with clotted blood around insertion Cardiovascular: Normal heart sounds S1 and S2 with no associated murmurs Abdomen: Abdomen nondistended, there is no pain to palpation in any of the abdominal quadrants, no palpable masses. Right flank bruise Extremities: Edema noted in bilateral hands, increased edema in left arm, decreased edema in bilateral legs, left lower leg has a closed, dry, healing ulcer measuring 3.5x2.6cm with adhered, dusky red and rosales eschar. Skin: No rashes or pruritus, there is no sacral edema present at this time Neurologic: Neurologic examination limited due to sedation laboratory and microbiology Laboratory Tests 07/28/25 03:35 Test 07/28/25 03:35 Range/Units Serum Glucose 85 74-106 mg/dL Microbiology Date/Time Source Procedure Growth Status 07/27/25 05:00 Urine - Lau Port Urine Culture - Preliminary Resulted 07/20/25 17:43 Sputum Gram Stain - Final Complete 07/20/25 17:43 Respiratory Culture - Final Pseudomonas aeruginosa Complete 07/11/25 14:17 Blood Blood Culture - Final NO GROWTH AFTER 5 DAYS OF INCUBATION. Complete 06/29/25 04:30 Nose MRSA Screen - Final Complete Problem List/Assessment/Plan Problem List/Assessment/Plan Neurology # Sedated - Fentanyl 25 mcg/hr - Versed off - Propofol held # Acute metabolic encephalopathy # History of CVA-with residual aphasia, right-sided deficit Cardiovascular #ROSC s/p Cardiac arrest and CPR - Patient had Vtach or Torsades de Pointes on 06/28/2025 - ROSC post CPR - Patient had VFib on 07/21/2025 - ROSC post CPR #Newly diagnosed coronary artery disease - triple-vessel disease #Dyslipidemia #NSTEMI type 1 status post PCI - S/p PCI x 4 STANLEY in circumflex 06/29/2025 - S/p PCI x 3 STANLEY in LAD 07/05/2025 - S/p Unsuccessful PTCA of mid RCA, unsuccessful cardioversion - Cardiology has been reached out to to determine possibility of second attempt - Aspirin 81 mg, Clopidogrel 74 mg, Atorvastatin 40 mg - Plavix and aspirin to be started again tomorrow #Prolonged QT - Avoid Qt prolonging medications #Paroxysmal atrial fibrillation with RVR - Digoxin 250 mcg, discontinued 07/25/2025 - Metoprolol 12.5 mg p.o. b.i.d. - Micra leadless pacemaker placed, interrogated by [employer] 07/25/2025, currently set at 60 . #End Stage Heart Failure - Echocardiogram (06/29/2025): lvef 20%, moderate LV enlargement, severe end stage HF, RV dysfunction, aortic sclerosis, moderate MAC, mild cathy regurg, mild tricuspid regurg ,moderate pulm htn - Jardiance 10 mg NG daily - Lisinopril 2.5 mg NG daily - Metoprolol 12.5 mg NG BID daily - Per cardio, Spironolactone to be started once blood pressure is more stable # Left Pleural Effusion: - Chest Xray: The cardiac silhouette is enlarged. The lungs demonstrate bilateral patchy airspace opacities. The pulmonary vasculature is prominent. Moderate bilateral pleural effusions, vbbhy-ovafipf-bewk-left. There is no pneumothorax. - Lasix 20 mg IV once #Moderate Pulmonary Hypertension #Venous thrombus in left cephalic vein -Avoid using left arm for blood pressure measurements Respiratory # Ventilator -intubated (06/28/2024) -extubated (07/20/2025) -reintubated (07/20/2025) -on [facility] vent : VCAC Mode RR 18 TV 400ml, PEEP Of 5 and FiO2 of 35% -S/p Tracheostomy 07/26/2025 # Acute hypoxic respiratory failure - Ventilator settings: AC mode, RR 18, VT 400, PEEP 5, FiO2 35% - S/p Tracheostomy 07/26/2025 - Will begin collar trial with 1 hour BID # Pneumonia (gram +/ gram -/ aspiration) # Ruled out Ventilator associated pneumonia - Chest x-ray: Similar bilateral inferior graded opacities, likely a combination of airspace disease and pleural effusion. 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 Hepatic steatosis. Trace left pleural effusion. # Peptic ulcer prophylaxis -Pantoprazole 40 mg IV daily # Lau catheter draining clear urine # Complicated UTI - Micafungin 100 mg IV daily - Urine culture has been ordered and is pending Nephrology #KEANU likely hemodynamically mediated/VMN -Lasix was given -Strict Is and Os -Avoid nephrotoxic drugs Infectious disease #Septic shock secondary to pneumonia (gram +/ gram -/ aspiration) -Chest x-ray: Similar bilateral inferior graded opacities, likely a combination of airspace disease and pleural effusion. 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 - Blood cultures: negative, culture from 07/01/2025 possibly contaminated - Urine culture: No growth after 48 hours - Sputum culture 06/29: Normal oropharyngeal jessica - Ceftolozone - tazobactam (zerbaxa) 07/23/2025 - Meropenem (07/04-07/19) - Zosyn (07/19-07/23) - Vancomycin (07/02/2025- 07/20/2025) -Patient is no longer on pressors #Complicated UTI - Micafungin (07/27): 100 mg IV daily - Urine culture has been ordered and is pending Hem/onc # Mild normocytic anemia - Monitor H&H Endocrine #Uncontrolled diabetes mellitus, HbA1c 10.6 - Insulin sliding scale DVT prophylaxis: Lovenox held due to previous rectus femoris hematoma PUD prophylaxis: Protonix 40 mg IV daily Nutrition: Vital High Protein Formula Lines Airway: Intubated via ETT on 06/29. RE intubated on 07/21. Vascular Access: Central line 06/29 Lau: 06/29, Exchanged: 07/27 Drips: Fentanyl Critical care time 72 minutes excluding procedure. Code status discussed greater than 20 minutes: Full CODE STATUS. Family at bedside explained about the condition of the patient Plan discussed with Dr. Giang Plan discussed with: Spouse, Other (Nurse) My Orders My Orders Orders - DALIA VALDOVINOS RESIDENT Procedure Category Date Status Time Abg W/ Co-Ox RT 07/28/25 Logged 04:00 Chest Xray 1 View XY 07/28/25 Resulted 04:00 Bi Lat Upper Dvt US 07/28/25 Resulted 08:47 * Abrasive Mixer CONS 07/28/25 Transmitted Consult Dietary Evaluation Review Comments: 1. Protein needs based on 1.2-1.5g/protein/kg IBW d/t low GFR 2. While being intubated, offer TF Vital HP @45ml/hr, in 24 hr, Pt will receive 94g protein, 1080lkcal 903ml free water, meeting pts needs at 97% protein and 100% energy. 3. Consider TPN to meet pt's needs if Pt does not tolerate TF well. 4. Reassess when pt extubated, advance to CCHO-60 PO diet after passing a [employer] evluation. Expected Outcomes/Goals: off intubation, advance to CCHO-60 Cardiac diet, gradual wt loss DALIA VALDOVINOS RESIDENT Jul 28, 2025 16:03
[2025-07-28 23:16] LABS: Chloride 105 mmol/L (98-107); Potassium 4.1 mmol/L (3.5-5.1)
[2025-07-28 23:17] LABS: Anion Gap 11 (5-15); Calcium 8.0 mg/dL (8.7-10.4); Carbon Dioxide 30 mmol/L (20-31); Sodium 146 mmol/L (136-145)
[2025-07-28 23:22] LABS: BUN/Creatinine Ratio 30.8 (10.0-20.0); Blood Urea Nitrogen 20 mg/dL (9-23); Magnesium 2.1 mg/dL (1.6-2.6)
[2025-07-28 23:23] LABS: Glucose 116 mg/dL (74-106)
[2025-07-29] VITALS (114 sets, daily range): BP systolic 78–179; BP diastolic 10–103; PULSE 60–112; RESP 11–33; TEMP 98.2–98.9; O2SAT 86–100
[2025-07-29 03:34] LABS: Hematocrit 28.3 % (41.0-53.0); Hemoglobin 9.3 g/dL (13.5-17.5); Mean Corpuscular Hemoglobin 27.6 pg (28.0-32.0); Mean Corpuscular Volume 84.5 fL (80.0-100.0); Nucleated Red Blood Cells % 0.0 %
[2025-07-29 03:51] LABS: Anion Gap 12 (5-15); Carbon Dioxide 28 mmol/L (20-31); Chloride 105 mmol/L (98-107); Potassium 4.1 mmol/L (3.5-5.1)
[2025-07-29 03:52] LABS: INR 1.08 (0.9-1.15); Partial Thromboplastin Time 29.5 SEC (24.5-34.5); Prothrombin Time 11.4 sec (9.3-11.8)
[2025-07-29 03:57] LABS: Glucose 104 mg/dL (74-106)
[2025-07-29 03:58] LABS: BUN/Creatinine Ratio 30.4 (10.0-20.0); Blood Urea Nitrogen 21 mg/dL (9-23); Magnesium 2.2 mg/dL (1.6-2.6)
[2025-07-29 04:02] LABS: Calcium 7.9 mg/dL (8.7-10.4); Sodium 145 mmol/L (136-145)
--- NOTE | 2025-07-29 07:15 | DVH ---
CHEST RADIOGRAPH Indication: Evaluation pleural effusion Technique: Single frontal view of the chest was obtained COMPARISON: XY CHEST XRAY 1 VIEW on DOS: 07/28/25, XY CHEST XRAY 1 VIEW on DOS: 07/27/25, XY CHEST PORTABLE on DOS: 07/26/25, XY CHEST XRAY 1 VIEW on DOS: 07/26/25, XY CHEST XRAY 1 VIEW on DOS: 07/26/25 FINDINGS: Lines and Tubes: Tracheostomy and enteric catheter in satisfactory position. Right PICC in satisfactory position. Lungs: Unchanged multifocal airspace disease. Pleura: No effusion. No pneumothorax. Cardiomediastinal contours: Unremarkable Bones: Unremarkable IMPRESSION: Unchanged multifocal airspace disease.
[2025-07-29] MEDS: CLOPIDOGREL BISULFATE 75 MG TAB PO SCH (08:46)
--- NOTE | 2025-07-29 13:39 | DVHPNRES ---
Progress Note Date Seen: Jul 29, 2025 Resident Creating Document: TONI MAGDALENO RESIDENT Has the PT tested + for MRSA If YES, has PT been informed?: No Medical Necessity Reason Pt with a Central, PICC or Fol: Yes The following are medically ne: PICC Line, Lau Catheter Reason for lau catheter: Strict I&O Subjective Review of Systems Mr. Almanza is a 74 year old male with PMHx hypertension, type 2 diabetes mellitus, dyslipidemia, paroxysmal AFib, and CVA in with left sided deficits, who presented to [facility] ED due to palpitations and shortness of breath on 06/28/2025. He was found to have Afib with RVR and was placed on IV diltiazem. Patient subsequently entered in cardiac arrest with possible V-tach or Torsades de Pointes, achieving ROSC after 8 minutes of CPR, he was intubated and started on Amiodarone drip, which was later discontinued due to prolonged QTc. He was admitted for further evaluation and management. Past medical history: Hypertension, dyslipidemia, diabetes, paroxysmal atrial fibrillation diagnosed in 2016 (chads Vasc 7), 2019 CVA Past surgical history: Appendectomy Family history: Two brothers had heart disease requiring CABG at the age of 40 and 50 respectively, brother had lung cancer, mother had breast cancer Social history: with . Ex tobacco abuse (eight pack-year history of smoking) quit 30 years ago. Denies current tobacco, alcohol and other drug abuse Allergies: Denies Home medication: Pradaxa 150 mg p.o. daily, atorvastatin 40 mg p.o. daily, hydrochlorothiazide 12.5 mg p.o. daily, lisinopril 20 mg p.o. daily, glipizide, metformin a 1000 mg p.o. b.i.d., metoprolol (he quit taking for four months since it made him tired). 07/29/2025 The patient was evaluated at bedside today. The patient is status-post tracheostomy, remains mechanically ventilated. * Trach collar trials x2 today, tolerated for a couple of hours each but returned to mechanical ventilation due to increased work of breathing. * Pending LTAC placement, medically optimized for transfer once ventilator requirements decrease. * Receiving enteral tube feeds, tolerating well, no vomiting, 3 bowel movements today. * Sedation minimal, patient appears awake, follows commands * CMP unremarkable: Creatinine 0.69 (baseline low), GFR 98, no electrolyte derangements. * Awaiting LTAC, case management working on disposition. Hemodynamically stable, no infection signs, WBC normalized. 07/28/2025: Patient is seen in the ICU. S/p Tracheostomy, minimally sedated, connected to mechanical ventilator, not on pressors. Per nurse, no overnight events to report. The patient is afebrile, normocardic, with stable blood pressure. Labs are stable. Bleeding around trach has improved. Per surgery, he may be started on Plavix and aspirin tomorrow. He successfully tolerated 1 hour trach collar, with only elevation of blood pressure observed during this time. Increased edema of left arm was noted today, venous duplex US was ordered showing clot in the cephalic vein. The patient has been accepted for transfer to [facility]. 07/27/2025: Patient seen in ICU. S/p tracheostomy yesterday. Sedation has been decreased. Per his nurse, the patient presented questionable bradycardic episodes overnight, however upon futher review of telemetry information heart rate taken by pulse oximeter is within normal range. Labs were ordered over night due to presence of ectopi on EKG, showing leukocytosis with neutrophilia and UA suggestive of UTI, urine culture was taken. Patient is afebrile, normocardic, and normotensive. Repeat labs shows downtrending WBCs, with subtle drop in Hb. Yesterday it was noted that patient was bleeding from area around tracheostomy, which persists today. Per General Surgery's recommendation, the we will continue holding plavix and aspirin. Additionally surgical snow has been placed around the area. Due to finding of yeast in UA, micafungin has been started and Lau catheter has been exchanged. 07/26/2025: Patient is seen in ICU. He is currently intubated, sedated, and mechanically ventilated. [facility] was contacted for transfer for tracheostomy, they stated to the patient should remain at this institution with their authorization to perform the procedure here. Per his nurse, the patient had some bradycardic episodes overnight and with a decrease of MAP towards the morning hours. He is afebrile, normocardic, with slight hypotension this morning. CBC is stable, LFTs continue to down trend. Chest Xray shows changes suggestive of increased pulmonary edema, for which one dose of lasix has been given. Due to decrease of tachy-sergio episodes, cardiology has discontinued digoxin. He has been started on Jardiance, Metoprolol, and Lisinopril for HFrEF, spironolactone will be added at a later time. We discontinued lovenox therapeutic dose due to recent history of hematoma. The patient went for tracheostomy today. Objective vital signs Vital Sign Date Time Temp Pulse Resp B/P (MAP) Pulse Ox O2 Delivery O2 Flow Rate FiO2 07/29/25 12:46 130/29 07/29/25 12:46 70 28 100 07/29/25 12:16 98.4 98.4 07/29/25 12:00 Trach Collar 10 35 35 Total Intake and Output 07/28/25 07/28/25 07/29/25 15:00 23:00 07:00 Intake Total 415.0 ml 267.0 ml 420.0 ml Output Total 650 ml 600 ml Balance 415.0 ml -383.0 ml -180.0 ml medications Current Medications Medications Dose Ordered Sig/Jesse Route Start Time Stop Time Status Last Admin Dose Admin Atorvastatin Calcium 40 mg HS PO 06/29/25 22:00 07/28/25 22:59 40 MG Fentanyl Citrate 250 ml @ 2.5 mls/hr Q24H IV 06/29/25 06:15 07/28/25 06:01 5 MLS/HR Insulin Human Regular HS SC 06/29/25 22:00 Cancel Insulin Human Regular AC SC 06/29/25 17:00 Cancel Pantoprazole Sodium 40 mg DAILY IV 06/30/25 10:00 07/29/25 08:42 40 MG Diagnostic Test (Pha) 1 strip IQ4HR 06/29/25 20:00 07/29/25 12:07 1 STRIP Insulin Human Regular IQ4HR SC 06/29/25 20:00 07/27/25 23:57 2 UNITS Dextrose 50 ml UD PRN IV 06/29/25 17:30 Midazolam HCl 100 ml @ 1 mls/hr Q24H IV 06/29/25 18:00 07/26/25 16:16 3 MLS/HR Enteral Nutritional Formula 1,000 ml 45ML/HR GT 06/30/25 17:15 07/19/25 20:14 1,000 ML Acetaminophen 650 mg Q4HP PRN PO 07/01/25 17:00 07/17/25 23:56 650 MG Insulin Glargine 12 units HS SC 07/06/25 22:00 07/28/25 22:00 12 UNITS Polyethylene Glycol 17 gm DAILY PO 07/08/25 10:00 07/27/25 09:14 17 GM Propofol 100 ml @ 3.225 mls/ hr Q24H IV 07/08/25 09:45 07/24/25 05:32 6.45 MLS/HR Sennosides 8.6 mg HS PO 07/10/25 22:00 07/27/25 21:49 8.6 MG Lactulose 30 ml DAILY PO 07/12/25 10:00 07/23/25 09:03 30 ML Empaglifozin 10 mg DAILY PO 07/14/25 10:00 07/29/25 08:43 10 MG Sodium Chloride 10 ml QSHIFT@10,22 IV 07/14/25 22:00 07/29/25 08:44 10 ML Norepinephrine Bitartrate 250 ml @ 3.75 mls/hr Q24H IV 07/17/25 03:15 07/20/25 17:45 3.75 MLS/HR Metoprolol Tartrate 25 mg BID PO 07/20/25 22:00 07/28/25 22:58 25 MG Labetalol HCl 10 mg Q4HP PRN IV 07/20/25 15:00 07/20/25 16:20 10 MG Purified Water 200 ml Q6HR GT 07/22/25 18:00 07/29/25 12:07 200 ML Ceftolozane/ Tazobactam 3 gm/ Dextrose 100 ml @ 100 mls/hr Q8HR IV 07/23/25 22:00 07/29/25 06:29 100 MLS/HR Lisinopril 2.5 mg DAILY GT 07/25/25 10:00 07/29/25 12:46 2.5 MG Micafungin Sodium 100 mg/Sodium Chloride 100 ml @ 100 mls/hr DAILY IV 07/28/25 10:00 07/29/25 08:44 100 MLS/HR Clopidogrel Bisulfate 75 mg DAILY PO 07/29/25 10:00 07/29/25 08:46 75 MG Aspirin 81 mg DAILY PO 07/29/25 10:00 07/29/25 08:42 81 MG Examination General: Tracheostomy, minimally sedated, pupils normoreactive to light HEENT: Normocephalic, atraumatic, moist mucous membranes, presence of NG tube Respiratory/pulmonary: Clear lungs bilaterally, vesicular murmurs present in almost all lung roberts, no associated crackles or wheezes, presence of tracheostomy with clotted blood around insertion Cardiovascular: Normal heart sounds S1 and S2 with no associated murmurs Abdomen: Abdomen nondistended, there is no pain to palpation in any of the abdominal quadrants, no palpable masses. Right flank bruise Extremities: Edema noted in bilateral hands, increased edema in left arm, decreased edema in bilateral legs, left lower leg has a closed, dry, healing ulcer measuring 3.5x2.6cm with adhered, dusky red and rosales eschar. Skin: No rashes or pruritus, there is no sacral edema present at this time Neurologic: Neurologic examination limited due to sedation laboratory and microbiology Laboratory Tests 07/29/25 02:45 Test 07/29/25 02:45 Range/Units Serum Glucose 104 74-106 mg/dL Microbiology Date/Time Source Procedure Growth Status 07/27/25 05:00 Urine - Lau Port Urine Culture - Preliminary Resulted 07/20/25 17:43 Sputum Gram Stain - Final Complete 07/20/25 17:43 Respiratory Culture - Final Pseudomonas aeruginosa Complete 07/11/25 14:17 Blood Blood Culture - Final NO GROWTH AFTER 5 DAYS OF INCUBATION. Complete 06/29/25 04:30 Nose MRSA Screen - Final Complete Problem List/Assessment/Plan Problem List/Assessment/Plan Neurology # Sedated - Fentanyl 25 mcg/hr - Versed off - Propofol held # Acute metabolic encephalopathy # History of CVA-with residual aphasia, right-sided deficit Cardiovascular #ROSC s/p Cardiac arrest and CPR - Patient had Vtach or Torsades de Pointes on 06/28/2025 - ROSC post CPR - Patient had VFib on 07/21/2025 - ROSC post CPR #Newly diagnosed coronary artery disease - triple-vessel disease #Dyslipidemia #NSTEMI type 1 status post PCI - S/p PCI x 4 STANLEY in circumflex 06/29/2025 - S/p PCI x 3 STANLEY in LAD 07/05/2025 - S/p Unsuccessful PTCA of mid RCA, unsuccessful cardioversion - Cardiology has been reached out to to determine possibility of second attempt - Aspirin 81 mg, Clopidogrel 74 mg, Atorvastatin 40 mg - Plavix and aspirin to be started again tomorrow #Prolonged QT - Avoid Qt prolonging medications #Paroxysmal atrial fibrillation with RVR - Digoxin 250 mcg, discontinued 07/25/2025 - Metoprolol 12.5 mg p.o. b.i.d. - Micra leadless pacemaker placed, interrogated by Medtr[employer] 07/25/2025, currently set at 60 . #End Stage Heart Failure - Echocardiogram (06/29/2025): lvef 20%, moderate LV enlargement, severe end stage HF, RV dysfunction, aortic sclerosis, moderate MAC, mild cathy regurg, mild tricuspid regurg ,moderate pulm htn - Jardiance 10 mg NG daily - Lisinopril 2.5 mg NG daily - Metoprolol 12.5 mg NG BID daily - Per cardio, Spironolactone to be started once blood pressure is more stable # Left Pleural Effusion: - Chest Xray: The cardiac silhouette is enlarged. The lungs demonstrate bilateral patchy airspace opacities. The pulmonary vasculature is prominent. Moderate bilateral pleural effusions, vjdji-ulgkjeb-xula-left. There is no pneumothorax. - Lasix 20 mg IV once #Moderate Pulmonary Hypertension #Venous thrombus in left cephalic vein -Avoid using left arm for blood pressure measurements Respiratory # Ventilator -intubated (06/28/2024) -extubated (07/20/2025) -reintubated (07/20/2025) -on [facility] vent : VCAC Mode RR 18 TV 400ml, PEEP Of 5 and FiO2 of 35% -S/p Tracheostomy 07/26/2025 # Acute hypoxic respiratory failure - Ventilator settings: AC mode, RR 18, VT 400, PEEP 5, FiO2 35% - S/p Tracheostomy 07/26/2025 - Started collar trial with 1 hour BID # Pneumonia (gram +/ gram -/ aspiration) # Ruled out Ventilator associated pneumonia - Chest x-ray: Similar bilateral inferior graded opacities, likely a combination of airspace disease and pleural effusion. 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 Hepatic steatosis. Trace left pleural effusion. # Peptic ulcer prophylaxis -Pantoprazole 40 mg IV daily # Lau catheter draining clear urine # Complicated UTI - Micafungin 100 mg IV daily - Urine culture has been ordered and is pending Nephrology #KEANU likely hemodynamically mediated/VMN -Lasix was given -Strict Is and Os -Avoid nephrotoxic drugs Infectious disease #Septic shock secondary to pneumonia (gram +/ gram -/ aspiration) -Chest x-ray: Similar bilateral inferior graded opacities, likely a combination of airspace disease and pleural effusion. 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 - Blood cultures: negative, culture from 07/01/2025 possibly contaminated - Urine culture: No growth after 48 hours - Sputum culture 06/29: Normal oropharyngeal jessica - Ceftolozone - tazobactam (zerbaxa) 07/23/2025 - Meropenem (07/04-07/19) - Zosyn (07/19-07/23) - Vancomycin (07/02/2025- 07/20/2025) -Patient is no longer on pressors #Complicated UTI - Micafungin (07/27): 100 mg IV daily - Urine culture has been ordered and is pending Hem/onc # Mild normocytic anemia - Monitor H&H Endocrine #Uncontrolled diabetes mellitus, HbA1c 10.6 - Insulin sliding scale DVT prophylaxis: Lovenox held due to previous rectus femoris hematoma PUD prophylaxis: Protonix 40 mg IV daily Nutrition: Vital High Protein Formula SOCIAL WORK / CASE MANAGEMENT * LTAC placement in progress. * Family updated at bedside. Lines Airway: Intubated via ETT on 06/29. RE intubated on 07/21. Vascular Access: Central line 06/29 Lau: 06/29, Exchanged: 07/27 Drips: Fentanyl Critical care time 72 minutes excluding procedure. Code status discussed greater than 20 minutes: Full CODE STATUS. Family at bedside explained about the condition of the patient Plan discussed with Dr. Giang Plan discussed with: Spouse, Other (RN) Dietary Evaluation Review Comments: 1. Protein needs based on 1.2-1.5g/protein/kg IBW d/t low GFR 2. While being intubated, offer TF Vital HP @45ml/hr, in 24 hr, Pt will receive 94g protein, 1080lkcal 903ml free water, meeting pts needs at 97% protein and 100% energy. 3. Consider TPN to meet pt's needs if Pt does not tolerate TF well. 4. Reassess when pt extubated, advance to CCHO-60 PO diet after passing a [employer] evluation. Expected Outcomes/Goals: off intubation, advance to CCHO-60 Cardiac diet, gradual wt loss TONI MAGDALENO RESIDENT Jul 29, 2025 13:39
[2025-07-29] MEDS ORDERED: DEXTROSE (50%) 50ML SYRG IV PRN (15:00)
[2025-07-29] MEDS: ACCU-CHEK COMFORT CURVE STRIP VI SCH (16:48)
[2025-07-29] MEDS: InsuLIN REG 1unit/0.01ml Soln (100units/ml) SC SCH (17:33)
--- NOTE | 2025-07-29 23:23 | DVHPN2 ---
Consult Progress Note Objective vital signs Vital Sign Date Time Temp Pulse Resp B/P (MAP) Pulse Ox O2 Delivery O2 Flow Rate FiO2 07/29/25 22:14 71 129/59 07/29/25 22:00 30 07/29/25 22:00 25 100 Mechanical Ventilator+ 07/29/25 20:00 98.7 98.7 07/29/25 12:00 10 Total Intake and Output 07/28/25 07/28/25 07/29/25 15:00 23:00 07:00 Intake Total 415.0 ml 267.0 ml 420.0 ml Output Total 650 ml 600 ml Balance 415.0 ml -383.0 ml -180.0 ml medications Current Medications Medications Dose Ordered Sig/Jesse Route Start Time Stop Time Status Last Admin Dose Admin Atorvastatin Calcium 40 mg HS PO 06/29/25 22:00 07/29/25 22:14 40 MG Fentanyl Citrate 250 ml @ 2.5 mls/hr Q24H IV 06/29/25 06:15 07/28/25 06:01 5 MLS/HR Insulin Human Regular HS SC 06/29/25 22:00 Cancel Insulin Human Regular AC SC 06/29/25 17:00 Cancel Pantoprazole Sodium 40 mg DAILY IV 06/30/25 10:00 07/29/25 08:42 40 MG Midazolam HCl 100 ml @ 1 mls/hr Q24H IV 06/29/25 18:00 07/26/25 16:16 3 MLS/HR Enteral Nutritional Formula 1,000 ml 45ML/HR GT 06/30/25 17:15 07/19/25 20:14 1,000 ML Acetaminophen 650 mg Q4HP PRN PO 07/01/25 17:00 07/17/25 23:56 650 MG Insulin Glargine 12 units HS SC 07/06/25 22:00 07/29/25 22:16 12 UNITS Polyethylene Glycol 17 gm DAILY PO 07/08/25 10:00 07/27/25 09:14 17 GM Propofol 100 ml @ 3.225 mls/ hr Q24H IV 07/08/25 09:45 07/24/25 05:32 6.45 MLS/HR Sennosides 8.6 mg HS PO 07/10/25 22:00 07/29/25 22:14 8.6 MG Lactulose 30 ml DAILY PO 07/12/25 10:00 07/23/25 09:03 30 ML Empaglifozin 10 mg DAILY PO 07/14/25 10:00 07/29/25 08:43 10 MG Sodium Chloride 10 ml QSHIFT@10,22 IV 07/14/25 22:00 07/29/25 22:15 10 ML Norepinephrine Bitartrate 250 ml @ 3.75 mls/hr Q24H IV 07/17/25 03:15 07/20/25 17:45 3.75 MLS/HR Metoprolol Tartrate 25 mg BID PO 07/20/25 22:00 07/29/25 22:14 25 MG Labetalol HCl 10 mg Q4HP PRN IV 07/20/25 15:00 07/20/25 16:20 10 MG Purified Water 200 ml Q6HR GT 07/22/25 18:00 07/29/25 16:48 200 ML Ceftolozane/ Tazobactam 3 gm/ Dextrose 100 ml @ 100 mls/hr Q8HR IV 07/23/25 22:00 07/29/25 22:00 100 MLS/HR Lisinopril 2.5 mg DAILY GT 07/25/25 10:00 07/29/25 12:46 2.5 MG Micafungin Sodium 100 mg/Sodium Chloride 100 ml @ 100 mls/hr DAILY IV 07/28/25 10:00 07/29/25 08:44 100 MLS/HR Clopidogrel Bisulfate 75 mg DAILY PO 07/29/25 10:00 07/29/25 08:46 75 MG Aspirin 81 mg DAILY PO 07/29/25 10:00 07/29/25 08:42 81 MG Diagnostic Test (Pha) 1 strip Q6HR 07/29/25 18:00 07/29/25 16:48 1 STRIP Insulin Human Regular Q6HR SC 07/29/25 18:00 Dextrose 50 ml UD PRN IV 07/29/25 15:00 laboratory and microbiology Laboratory Tests 07/29/25 02:45 Test 07/29/25 02:45 Range/Units Serum Glucose 104 74-106 mg/dL Problem List/Assessment/Plan Problem List/Assessment/Plan ASSESSMENT AND PLAN: ID Problem List: -Pneumonia with sputum cultures positive for Pseudomonas aeruginosa and Serratia marcescens (hospital-acquired/ventilator-associated context) -Acute respiratory failure requiring endotracheal intubation and mechanical ventilation -Recurrent ventricular arrhythmias (ventricular tachycardia and torsades de pointes) with cardiac arrest x2 (ROSC after 8 minutes; ROSC after 6 minutes); prolonged QTc -Paroxysmal atrial fibrillation with RVR; unsuccessful DC cardioversion during this admission -Severe multivessel coronary artery disease with ischemic cardiomyopathy; subacute thrombosis of the circumflex -s/p PCI: successful PTCA/stent of occluded circumflex; subsequent revascularization procedures to LAD and mid RCA (per dates below) -Sick sinus syndrome/tachyarrhythmia; Medtronic permanent pacemaker implanted into the RV septum without complication -Hyperbilirubinemia (total bilirubin up to 2.2) with otherwise normal liver enzymes -Rectus abdominis hematoma on CT A/P -Type 2 diabetes mellitus -Hypertension -Prior ischemic stroke (2019) with chronic right-sided deficits; limited mobility (assisted/wheelchair) Assessment: This is a 74-year-old male with hypertension, paroxysmal AF (2016; prior electrical cardioversion), and ischemic stroke in 2019 with chronic right-sided deficits, who presented with AF with RVR and progressed to ventricular arrhythmias (VT, torsades) with cardiac arrests requiring ACLS (ROSC at 8 minutes; later ROSC at 6 minutes). He is intubated and sedated with a prolonged QTc; on amiodarone with magnesium. Coronary angiography showed severe triple- vessel CAD with subacute circumflex thrombosis, ischemic cardiomyopathy, and elevated LVEDP; he underwent PCI to the circumflex with additional staged revascularizations to the LAD and mid RCA. DC cardioversion for AF was unsuccessful. A permanent Medtronic pacemaker was implanted in the RV septum for sick sinus/tachyarrhythmia. Pulmonary course notable for mixed pulmonary opacities/edema on imaging. Sputum cultures grew Pseudomonas aeruginosa and Serratia marcescens. He received broad- spectrum therapy (vancomycin with cefepime/Zosyn, later vancomycin with meropenem for inadequate response). Leukopenia on 07/19 resolved; Tmax 99.7F on 07/19 without documented fevers otherwise. Total bilirubin kenia to 2.2 with otherwise normal liver enzymes. CT A/P showed a rectus abdominis hematoma. He remains intubated with FiO2 ~35%. 07/24: off all pressors 07/25: RUQ wo acute cholecystitis 07/26: sp tracheostomy, Plan: -Antimicrobial therapy: -continue ceftolozanetazobactam (Zerbaxa) to target Pseudomonas per culture context. -Proposed duration for current targeted therapy: 7 days -10 days -Respiratory care: -Continue mechanical ventilation per ICU/pulmonology with goal SpO2 >92%. -Monitor FiO2 requirements and sputum burden; implement frequent airway secretion clearance. -Daily chest radiograph to track resolution of opacities. -Hemodynamics: -Maintain MAP ?65 mmHg per ICU protocol. -Hepatobiliary: -Obtain abdominal ultrasound to evaluate elevated bilirubin and assess for acalculous cholecystitis. -Arrhythmia/CV management: -Defer to cardiology for ongoing management of severe CAD, ischemic cardiomyopathy, recurrent AF, and pacemaker programming. -Strict avoidance of QT-prolonging agents (e.g., fluoroquinolones) given torsades and prolonged QTc history. -Thrombosis/bleeding: -Acknowledge rectus abdominis hematoma; coordinate anticoagulation/antiplatelet strategy with cardiology/ICU in context of recent PCI, DAPT, and bleeding risk. -Monitoring/Follow-up: -Trend bilirubin/LFTs. -Monitor CBC and renal function while on antipseudomonal therapy. -Repeat sputum cultures based on clinical course. Authorized and Performed by: sheryl gaston md Total critical care time: Approximately 76 minutes Due to a high probability of clinically significant, life threatening deterioration, the patient required my highest level of preparedness to intervene emergently and I personally spent this critical care time directly and personally managing the patient. This critical care time included obtaining a history; examining the patient; pulse oximetry; ordering and review of studies; arranging urgent treatment with development of a management plan; evaluation of patient's response to treatment; frequent reassessment; and, discussions with other providers. This critical care time was performed to assess and manage the high probability of imminent, life-threatening deterioration that could result in multi-organ failure. It was exclusive of separately billable procedures and treating other patients and teaching time. Isolation Precautions: standard Assessment and plan discussed with the care team. Plan subject to change pending new data; updates may be added as an addendum. Thank you for the consult. ID will continue to follow. Please contact Infectious Diseases for any questions or concerns. )))))))))))))))))))))))))))))))))))))))))))))))))))))))))))))))))))))))))))))))) )))))))))))))))))))))))))))))))))))))))))))))))))))))))))) PHYSICAL EXAM: General: NAD Neck: Supple. No masses. HEENT: PERRL. Normal lids and conjunctiva. Moist mucous membranes. Oropharynx without lesions, exudates or excessive erythema. Normal appearance of the external aspects of the nose and ears. Heart: Regular rhythm, normal rate. No murmur. No lower extremity edema. Lungs: Mechanically ventilated via endotracheal tube. No wheezes. No crackles. Abdomen: Soft. Non-tender. Non-distended. No masses or abdominal hernia. Msk: No digital cyanosis. Normal strength and tone in all 4 limbs. Skin: Warm and dry, no rashes. Neuro: Sedated and intubated. No facial droop or slurred speech. Extra-ocular movements intact. Sensation intact to soft touch in all 4 limbs. Psych: Unable to assess due to intubation and sedation. Oriented to person, place, time, and situation: Unable to assess due to intubation and sedation. Dietary Evaluation Review Comments: 1. Protein needs based on 1.2-1.5g/protein/kg IBW d/t low GFR 2. While being intubated, offer TF Vital HP @45ml/hr, in 24 hr, Pt will receive 94g protein, 1080lkcal 903ml free water, meeting pts needs at 97% protein and 100% energy. 3. Consider TPN to meet pt's needs if Pt does not tolerate TF well. 4. 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 Expected Outcomes/Goals: off intubation, advance to CCHO-60 Cardiac diet, gradual wt loss SHERYL GASTON MD Jul 29, 2025 23:23
[2025-07-30] VITALS (115 sets, daily range): BP systolic 98–170; BP diastolic 21–101; PULSE 64–134; RESP 8–37; TEMP 98–98.8; O2SAT 95–100
[2025-07-30 03:23] LABS: Hematocrit 30.2 % (41.0-53.0); Hemoglobin 9.6 g/dL (13.5-17.5); Mean Corpuscular Hemoglobin 27.1 pg (28.0-32.0); Mean Corpuscular Volume 85.5 fL (80.0-100.0); Nucleated Red Blood Cells % 0.1 %
[2025-07-30 03:30] LABS: Chloride 106 mmol/L (98-107); Potassium 3.8 mmol/L (3.5-5.1)
[2025-07-30 03:31] LABS: Anion Gap 13 (5-15); Carbon Dioxide 27 mmol/L (20-31)
[2025-07-30 03:32] LABS: Calcium 7.9 mg/dL (8.7-10.4); Sodium 146 mmol/L (136-145)
[2025-07-30 03:36] LABS: BUN/Creatinine Ratio 31.5 (10.0-20.0); Blood Urea Nitrogen 23 mg/dL (9-23)
[2025-07-30 03:39] LABS: Glucose 135 mg/dL (74-106)
--- NOTE | 2025-07-30 05:52 | DVH ---
CHEST RADIOGRAPH Indication: aCUTE HYPOXIC RESPIRATORY FAILURE Technique: Single frontal view of the chest was obtained COMPARISON: XY CHEST XRAY 1 VIEW on DOS: 07/29/25, XY CHEST XRAY 1 VIEW on DOS: 07/28/25, XY CHEST XRAY 1 VIEW on DOS: 07/27/25, XY CHEST PORTABLE on DOS: 07/26/25, XY CHEST XRAY 1 VIEW on DOS: 07/26/25 FINDINGS: Lines and Tubes: Tracheostomy and enteric catheter in satisfactory position. Right PICC in satisfactory position. Lungs: Right lower lobe airspace disease. Pleura: No effusion.No pneumothorax. Cardiomediastinal contours: Cardiomegaly. Bones: Unremarkable IMPRESSION: Lines and tubes in satisfactory position. No significant interval change.
[2025-07-30 09:59] LABS: Base Excess 1.7 mmol/L (-2.0-3.0)
--- NOTE | 2025-07-30 16:08 | DVHPN2 ---
Consult Progress Note Date Seen: Jul 30, 2025 Subjective Patient reports: Feels better (on 8L trach ollar) Objective vital signs Vital Sign Date Time Temp Pulse Resp B/P (MAP) Pulse Ox O2 Delivery O2 Flow Rate FiO2 07/30/25 14:35 100 Trach Collar 8.0 07/30/25 14:35 30 30 07/30/25 14:02 92 07/30/25 14:02 20 07/30/25 13:00 108/42 (64) 07/30/25 12:00 98.8 98.8 Total Intake and Output 07/29/25 07/29/25 07/30/25 15:00 23:00 07:00 Intake Total 115.0 ml 720.0 ml 870.0 ml Output Total 450 ml 650 ml Balance 115.0 ml 270.0 ml 220.0 ml medications Current Medications Medications Dose Ordered Sig/Jesse Route Start Time Stop Time Status Last Admin Dose Admin Fentanyl Citrate 250 ml @ 2.5 mls/hr Q24H IV 06/29/25 06:15 07/28/25 06:01 5 MLS/HR Insulin Human Regular HS SC 06/29/25 22:00 Cancel Insulin Human Regular AC SC 06/29/25 17:00 Cancel Midazolam HCl 100 ml @ 1 mls/hr Q24H IV 06/29/25 18:00 07/26/25 16:16 3 MLS/HR Enteral Nutritional Formula 1,000 ml 45ML/HR GT 06/30/25 17:15 07/19/25 20:14 1,000 ML Acetaminophen 650 mg Q4HP PRN PO 07/01/25 17:00 07/17/25 23:56 650 MG Insulin Glargine 12 units HS SC 07/06/25 22:00 07/29/25 22:16 12 UNITS Polyethylene Glycol 17 gm DAILY PO 07/08/25 10:00 07/27/25 09:14 17 GM Propofol 100 ml @ 3.225 mls/ hr Q24H IV 07/08/25 09:45 07/24/25 05:32 6.45 MLS/HR Sennosides 8.6 mg HS PO 07/10/25 22:00 07/29/25 22:14 8.6 MG Lactulose 30 ml DAILY PO 07/12/25 10:00 07/23/25 09:03 30 ML Empaglifozin 10 mg DAILY PO 07/14/25 10:00 07/30/25 11:14 10 MG Sodium Chloride 10 ml QSHIFT@ IV 07/14/25 22:00 07/30/25 11:14 10 ML Norepinephrine Bitartrate 250 ml @ 3.75 mls/hr Q24H IV 07/17/25 03:15 07/20/25 17:45 3.75 MLS/HR Metoprolol Tartrate 25 mg BID PO 07/20/25 22:00 07/30/25 11:13 25 MG Labetalol HCl 10 mg Q4HP PRN IV 07/20/25 15:00 07/20/25 16:20 10 MG Purified Water 200 ml Q6HR GT 07/22/25 18:00 07/30/25 11:16 200 ML Ceftolozane/ Tazobactam 3 gm/ Dextrose 100 ml @ 100 mls/hr Q8HR IV 07/23/25 22:00 07/30/25 14:30 100 MLS/HR Lisinopril 2.5 mg DAILY GT 07/25/25 10:00 07/30/25 11:13 2.5 MG Micafungin Sodium 100 mg/Sodium Chloride 100 ml @ 100 mls/hr DAILY IV 07/28/25 10:00 07/30/25 11:15 100 MLS/HR Clopidogrel Bisulfate 75 mg DAILY PO 07/29/25 10:00 07/30/25 11:13 75 MG Aspirin 81 mg DAILY PO 07/29/25 10:00 07/30/25 11:14 81 MG Diagnostic Test (Pha) 1 strip Q6HR 07/29/25 18:00 07/30/25 11:17 1 STRIP Insulin Human Regular Q6HR SC 07/29/25 18:00 07/30/25 05:57 2 UNITS Dextrose 50 ml UD PRN IV 07/29/25 15:00 laboratory and microbiology Laboratory Tests 07/30/25 02:38 Test 07/30/25 02:38 Range/Units Serum Glucose 135 H 74-106 mg/dL Problem List/Assessment/Plan Problem List/Assessment/Plan ASSESSMENT AND PLAN: ID Problem List: -Pneumonia with sputum cultures positive for Pseudomonas aeruginosa and Serratia marcescens (hospital-acquired/ventilator-associated context) -Acute respiratory failure requiring endotracheal intubation and mechanical ventilation -Recurrent ventricular arrhythmias (ventricular tachycardia and torsades de pointes) with cardiac arrest x2 (ROSC after 8 minutes; ROSC after 6 minutes); prolonged QTc -Paroxysmal atrial fibrillation with RVR; unsuccessful DC cardioversion during this admission -Severe multivessel coronary artery disease with ischemic cardiomyopathy; subacute thrombosis of the circumflex -s/p PCI: successful PTCA/stent of occluded circumflex; subsequent revascularization procedures to LAD and mid RCA (per dates below) -Sick sinus syndrome/tachyarrhythmia; Medtronic permanent pacemaker implanted into the RV septum without complication -Hyperbilirubinemia (total bilirubin up to 2.2) with otherwise normal liver enzymes -Rectus abdominis hematoma on CT A/P -Type 2 diabetes mellitus -Hypertension -Prior ischemic stroke (2019) with chronic right-sided deficits; limited mobility (assisted/wheelchair) Assessment: This is a 74-year-old male with hypertension, paroxysmal AF (2016; prior electrical cardioversion), and ischemic stroke in 2019 with chronic right-sided deficits, who presented with AF with RVR and progressed to ventricular arrhythmias (VT, torsades) with cardiac arrests requiring ACLS (ROSC at 8 minutes; later ROSC at 6 minutes). He is intubated and sedated with a prolonged QTc; on amiodarone with magnesium. Coronary angiography showed severe triple- vessel CAD with subacute circumflex thrombosis, ischemic cardiomyopathy, and elevated LVEDP; he underwent PCI to the circumflex with additional staged revascularizations to the LAD and mid RCA. DC cardioversion for AF was unsuccessful. A permanent Medtronic pacemaker was implanted in the RV septum for sick sinus/tachyarrhythmia. Pulmonary course notable for mixed pulmonary opacities/edema on imaging. Sputum cultures grew Pseudomonas aeruginosa and Serratia marcescens. He received broad- spectrum therapy (vancomycin with cefepime/Zosyn, later vancomycin with meropenem for inadequate response). Leukopenia on 07/19 resolved; Tmax 99.7F on 07/19 without documented fevers otherwise. Total bilirubin kenia to 2.2 with otherwise normal liver enzymes. CT A/P showed a rectus abdominis hematoma. He remains intubated with FiO2 ~35%. 07/24: off all pressors 07/25: RUQ wo acute cholecystitis 07/26: sp tracheostomy, 07/30: amy krusei on urine culture Plan: - continue micafungin for now, ensure lau catheter has been exchanged, limit to 3-5 days course. -Antimicrobial therapy: -continue ceftolozanetazobactam (Zerbaxa) to target Pseudomonas per culture context. -Proposed duration for current targeted therapy: 10 days -Respiratory care: -Continue mechanical ventilation per ICU/pulmonology with goal SpO2 >92%. -Monitor FiO2 requirements and sputum burden; implement frequent airway secretion clearance. -Daily chest radiograph to track resolution of opacities. -Hemodynamics: -Maintain MAP ?65 mmHg per ICU protocol. -Hepatobiliary: -Obtain abdominal ultrasound to evaluate elevated bilirubin and assess for acalculous cholecystitis. -Arrhythmia/CV management: -Defer to cardiology for ongoing management of severe CAD, ischemic cardiomyopathy, recurrent AF, and pacemaker programming. -Strict avoidance of QT-prolonging agents (e.g., fluoroquinolones) given torsades and prolonged QTc history. -Thrombosis/bleeding: -Acknowledge rectus abdominis hematoma; coordinate anticoagulation/antiplatelet strategy with cardiology/ICU in context of recent PCI, DAPT, and bleeding risk. -Monitoring/Follow-up: -Trend bilirubin/LFTs. -Monitor CBC and renal function while on antipseudomonal therapy. -Repeat sputum cultures based on clinical course. Authorized and Performed by: lennie gaston md Total critical care time: Approximately 76 minutes Due to a high probability of clinically significant, life threatening deterioration, the patient required my highest level of preparedness to intervene emergently and I personally spent this critical care time directly and personally managing the patient. This critical care time included obtaining a history; examining the patient; pulse oximetry; ordering and review of studies; arranging urgent treatment with development of a management plan; evaluation of patient's response to treatment; frequent reassessment; and, discussions with other providers. This critical care time was performed to assess and manage the high probability of imminent, life-threatening deterioration that could result in multi-organ failure. It was exclusive of separately billable procedures and treating other patients and teaching time. Isolation Precautions: standard Assessment and plan discussed with the care team. Plan subject to change pending new data; updates may be added as an addendum. Thank you for the consult. ID will continue to follow. Please contact Infectious Diseases for any questions or concerns. )))))))))))))))))))))))))))))))))))))))))))))))))))))))))))))))))))))))))))))))) )))))))))))))))))))))))))))))))))))))))))))))))))))))))))) PHYSICAL EXAM: General: NAD Neck: Supple. No masses. HEENT: PERRL. Normal lids and conjunctiva. Moist mucous membranes. Oropharynx without lesions, exudates or excessive erythema. Normal appearance of the external aspects of the nose and ears. Heart: Regular rhythm, normal rate. No murmur. No lower extremity edema. Lungs: Mechanically ventilated via endotracheal tube. No wheezes. No crackles. Abdomen: Soft. Non-tender. Non-distended. No masses or abdominal hernia. Msk: No digital cyanosis. Normal strength and tone in all 4 limbs. Skin: Warm and dry, no rashes. Neuro: Sedated and intubated. No facial droop or slurred speech. Extra-ocular movements intact. Sensation intact to soft touch in all 4 limbs. Psych: Unable to assess due to intubation and sedation. Oriented to person, place, time, and situation: Unable to assess due to intubation and sedation. Plan discussed with: Patient Dietary Evaluation Review Comments: 1. Protein needs based on 1.2-1.5g/protein/kg IBW d/t low GFR 2. While being intubated, offer TF Vital HP @45ml/hr, in 24 hr, Pt will receive 94g protein, 1080lkcal 903ml free water, meeting pts needs at 97% protein and 100% energy. 3. Consider TPN to meet pt's needs if Pt does not tolerate TF well. 4. Reassess when pt extubated, advance to CCHO-60 PO diet after passing a EXECUTIVE PERSONAL ASSISTANT evluation. Expected Outcomes/Goals: off intubation, advance to CCHO-60 Cardiac diet, gradual wt loss LENNIE GASTON MD Jul 30, 2025 16:08
--- NOTE | 2025-07-30 18:44 | DVHPNRES ---
Progress Note Date Seen: Jul 30, 2025 Resident Creating Document: DALIA VALDOVINOS RESIDENT Has the PT tested + for MRSA If YES, has PT been informed?: No Medical Necessity Reason Pt with a Central, PICC or Fol: Yes The following are medically ne: PICC Line, Lau Catheter Reason for lau catheter: Strict I&O Subjective Review of Systems Mr. Almanza is a 74 year old male with PMHx hypertension, type 2 diabetes mellitus, dyslipidemia, paroxysmal AFib, and CVA in with left sided deficits, who presented to [facility] ED due to palpitations and shortness of breath on 06/28/2025. He was found to have Afib with RVR and was placed on IV diltiazem. Patient subsequently entered in cardiac arrest with possible V-tach or Torsades de Pointes, achieving ROSC after 8 minutes of CPR, he was intubated and started on Amiodarone drip, which was later discontinued due to prolonged QTc. He was admitted for further evaluation and management. Past medical history: Hypertension, dyslipidemia, diabetes, paroxysmal atrial fibrillation diagnosed in 2016 (chads Vasc 7), 2020 CVA Past surgical history: Appendectomy Family history: Two brothers had heart disease requiring CABG at the age of 40 and 50 respectively, brother had lung cancer, mother had breast cancer Social history: with . Ex tobacco abuse (eight pack-year history of smoking) quit 30 years ago. Denies current tobacco, alcohol and other drug abuse Allergies: Denies Home medication: Pradaxa 150 mg p.o. daily, atorvastatin 40 mg p.o. daily, hydrochlorothiazide 12.5 mg p.o. daily, lisinopril 20 mg p.o. daily, glipizide, metformin a 1000 mg p.o. b.i.d., metoprolol (he quit taking for four months since it made him tired). 07/30: Patient seen in the ICU. He is s/p tracheostomy, on mechanical ventilator, minimally sedated with fentanyl at 25 mcg. Per his nurse, trach collar trial was attempted last night, but patient lasted only 10 minutes before he had to be placed back on the ventilator. He is afebrile, normocardic, slightly hypertensive. Labs are stable. He is more awake, follows commands to the best of his ability, and communicates by nodding or shaking his head. Per manager social work, the patient has been accepted at [facility], pending further instruction for his transfer. Objective vital signs Vital Sign Date Time Temp Pulse Resp B/P (MAP) Pulse Ox O2 Delivery O2 Flow Rate FiO2 07/30/25 18:20 100 Trach Collar 6 28 Cool Aerosol 28 07/30/25 17:47 74 07/30/25 17:47 26 07/30/25 17:16 139/30 (66) 07/30/25 16:01 98.3 98.3 Total Intake and Output 07/29/25 07/29/25 07/30/25 15:00 23:00 07:00 Intake Total 115.0 ml 720.0 ml 870.0 ml Output Total 450 ml 650 ml Balance 115.0 ml 270.0 ml 220.0 ml medications Current Medications Medications Dose Ordered Sig/Jesse Route Start Time Stop Time Status Last Admin Dose Admin Fentanyl Citrate 250 ml @ 2.5 mls/hr Q24H IV 06/29/25 06:15 07/28/25 06:01 5 MLS/HR Insulin Human Regular HS SC 06/29/25 22:00 Cancel Insulin Human Regular AC SC 06/29/25 17:00 Cancel Midazolam HCl 100 ml @ 1 mls/hr Q24H IV 06/29/25 18:00 07/26/25 16:16 3 MLS/HR Enteral Nutritional Formula 1,000 ml 45ML/HR GT 06/30/25 17:15 07/19/25 20:14 1,000 ML Acetaminophen 650 mg Q4HP PRN PO 07/01/25 17:00 07/17/25 23:56 650 MG Insulin Glargine 12 units HS SC 07/06/25 22:00 07/29/25 22:16 12 UNITS Polyethylene Glycol 17 gm DAILY PO 07/08/25 10:00 07/27/25 09:14 17 GM Sennosides 8.6 mg HS PO 07/10/25 22:00 07/29/25 22:14 8.6 MG Lactulose 30 ml DAILY PO 07/12/25 10:00 07/23/25 09:03 30 ML Empaglifozin 10 mg DAILY PO 07/14/25 10:00 07/30/25 11:14 10 MG Sodium Chloride 10 ml QSHIFT@ IV 07/14/25 22:00 07/30/25 11:14 10 ML Norepinephrine Bitartrate 250 ml @ 3.75 mls/hr Q24H IV 07/17/25 03:15 07/20/25 17:45 3.75 MLS/HR Metoprolol Tartrate 25 mg BID PO 07/20/25 22:00 07/30/25 11:13 25 MG Labetalol HCl 10 mg Q4HP PRN IV 07/20/25 15:00 07/20/25 16:20 10 MG Purified Water 200 ml Q6HR GT 07/22/25 18:00 07/30/25 17:33 200 ML Ceftolozane/ Tazobactam 3 gm/ Dextrose 100 ml @ 100 mls/hr Q8HR IV 07/23/25 22:00 07/30/25 14:30 100 MLS/HR Lisinopril 2.5 mg DAILY GT 07/25/25 10:00 07/30/25 11:13 2.5 MG Micafungin Sodium 100 mg/Sodium Chloride 100 ml @ 100 mls/hr DAILY IV 07/28/25 10:00 07/30/25 11:15 100 MLS/HR Clopidogrel Bisulfate 75 mg DAILY PO 07/29/25 10:00 07/30/25 11:13 75 MG Aspirin 81 mg DAILY PO 07/29/25 10:00 07/30/25 11:14 81 MG Diagnostic Test (Pha) 1 strip Q6HR 07/29/25 18:00 07/30/25 17:33 1 STRIP Insulin Human Regular Q6HR SC 07/29/25 18:00 07/30/25 05:57 2 UNITS Dextrose 50 ml UD PRN IV 07/29/25 15:00 Examination General: Tracheostomy, minimally sedated, pupils normoreactive to light, cooperative HEENT: Normocephalic, atraumatic, pupils normal reactive, EOM intact, moist mucous membranes, presence of NG tube Respiratory/pulmonary: Clear lungs bilaterally, vesicular murmurs present in almost all lung roberts, no associated crackles or wheezes, presence of tracheostomy with dry blood around insertion Cardiovascular: Normal heart sounds S1 and S2 with no associated murmurs Abdomen: Abdomen nondistended, there is no pain to palpation in any of the abdominal quadrants, no palpable masses. Right flank bruise Extremities: Edema noted in bilateral hands, edema has improved, left lower leg has a closed, dry, healing ulcer measuring 3.5x2.6cm with adhered, dusky red and rosales eschar. Skin: No rashes or pruritus, there is no sacral edema present at this time Neurologic: Decreased strength in right side due to previous stroke laboratory and microbiology Laboratory Tests 07/30/25 02:38 Test 07/30/25 02:38 Range/Units Serum Glucose 135 H 74-106 mg/dL Microbiology Date/Time Source Procedure Growth Status 07/27/25 05:00 Urine - Lau [place] Urine Culture - Final Presumptive Maria Eugenia krusei Complete 07/20/25 17:43 Sputum Gram Stain - Final Complete 07/20/25 17:43 Respiratory Culture - Final Pseudomonas aeruginosa Complete 07/11/25 14:17 Blood Blood Culture - Final NO GROWTH AFTER 5 DAYS OF INCUBATION. Complete 06/29/25 04:30 Nose MRSA Screen - Final Complete Problem List/Assessment/Plan Problem List/Assessment/Plan Neurology # Sedated - Fentanyl 25 mcg/hr - Versed off - Propofol held # Acute metabolic encephalopathy # History of CVA-with residual aphasia, right-sided deficit Cardiovascular #ROSC s/p Cardiac arrest and CPR - Patient had Vtach or Torsades de Pointes on 06/28/2025 - ROSC post CPR - Patient had VFib on 07/21/2025 - ROSC post CPR #Newly diagnosed coronary artery disease - triple-vessel disease #Dyslipidemia #NSTEMI type 1 status post PCI - S/p PCI x 4 STANLEY in circumflex 06/29/2025 - S/p PCI x 3 STANLEY in LAD 07/05/2025 - S/p Unsuccessful PTCA of mid RCA, unsuccessful cardioversion - Cardiology has been reached out to to determine possibility of second attempt - Aspirin 81 mg, Clopidogrel 74 mg, Atorvastatin 40 mg - Plavix and aspirin to be started again tomorrow #Prolonged QT - Avoid Qt prolonging medications #Paroxysmal atrial fibrillation with RVR - Digoxin 250 mcg, discontinued 07/25/2025 - Metoprolol 12.5 mg p.o. b.i.d. - Micra leadless pacemaker placed, interrogated by Medtronic 07/25/2025, currently set at 60 . #End Stage Heart Failure - Echocardiogram (06/29/2025): lvef 20%, moderate LV enlargement, severe end stage HF, RV dysfunction, aortic sclerosis, moderate MAC, mild cathy regurg, mild tricuspid regurg ,moderate pulm htn - Jardiance 10 mg NG daily - Lisinopril 2.5 mg NG daily - Metoprolol 12.5 mg NG BID daily - Per cardio, Spironolactone to be started once blood pressure is more stable # Left Pleural Effusion: - Chest Xray: The cardiac silhouette is enlarged. The lungs demonstrate bilateral patchy airspace opacities. The pulmonary vasculature is prominent. Moderate bilateral pleural effusions, [id number]. There is no pneumothorax. - Lasix 20 mg IV once #Moderate Pulmonary Hypertension #Venous thrombus in left cephalic vein -Avoid using left arm for blood pressure measurements Respiratory # Ventilator -intubated (06/28/2024) -extubated (07/20/2025) -reintubated (07/20/2025) -on [facility] vent : VCAC Mode RR 18 TV 400ml, PEEP Of 5 and FiO2 of 35% -S/p Tracheostomy 07/26/2025 # Acute hypoxic respiratory failure - Ventilator settings: AC mode, RR 18, VT 400, PEEP 5, FiO2 35% - S/p Tracheostomy 07/26/2025 - Will begin collar trial with 1 hour BID # Pneumonia (gram +/ gram -/ aspiration) # Ruled out Ventilator associated pneumonia - Chest x-ray: Similar bilateral inferior graded opacities, likely a combination of airspace disease and pleural effusion. 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 Hepatic steatosis. Trace left pleural effusion. # Peptic ulcer prophylaxis -Pantoprazole 40 mg IV daily # Lau catheter draining clear urine # Complicated UTI - Micafungin 100 mg IV daily - Urine culture 07/27:Presumptive Maria Eugenia krusei Nephrology #KEANU likely hemodynamically mediated/VMN -Lasix was given -Strict Is and Os -Avoid nephrotoxic drugs Infectious disease #Septic shock secondary to pneumonia (gram +/ gram -/ aspiration) -Chest x-ray: Similar bilateral inferior graded opacities, likely a combination of airspace disease and pleural effusion. 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 - Blood cultures: negative, culture from 07/01/2025 possibly contaminated - Urine culture: No growth after 48 hours - Sputum culture 06/29: Normal oropharyngeal jessica - Ceftolozone - tazobactam (zerbaxa) 07/23/2025 - Meropenem (07/04-07/19) - Zosyn (07/19-07/23) - Vancomycin (07/02/2025- 07/20/2025) -Patient is no longer on pressors #Complicated UTI - Micafungin (07/27): 100 mg IV daily - Urine culture has been ordered and is pending Hem/onc # Mild normocytic anemia - Monitor H&H Endocrine #Uncontrolled diabetes mellitus, HbA1c 10.6 - Insulin sliding scale DVT prophylaxis: Lovenox held due to previous rectus femoris hematoma PUD prophylaxis: Protonix 40 mg IV daily Nutrition: Vital High Protein Formula Lines Airway: Intubated via ETT on 06/29. RE intubated on 07/21. Vascular Access: Central line 06/29 Lau: 06/29, Exchanged: 07/27 Drips: Fentanyl Critical care time 51 minutes excluding procedure. Code status discussed greater than 20 minutes: Full CODE STATUS. Family at bedside explained about the condition of the patient Plan discussed with Dr. Giang Plan discussed with: Spouse, Other (Nurse) My Orders My Orders Orders - DALIA VALDOVINOS RESIDENT Procedure Category Date Status Time Abg W/ Co-Ox RT 07/30/25 Logged 06:00 Complete Blood Count LAB 07/31/25 Verified 04:00 Basic Metabolic Panel LAB 07/31/25 Verified 04:00 PTPTT LAB 07/31/25 Verified 04:00 Abg W/ Co-Ox RT 07/31/25 Logged 04:00 Chest Xray 1 View XY 07/31/25 Logged 04:00 Magnesium LAB 07/31/25 Verified 04:00 Phosphorus LAB 07/31/25 Verified 04:00 Dietary Evaluation Review Comments: 1. Protein needs based on 1.2-1.5g/protein/kg IBW d/t low GFR 2. While being intubated, offer TF Vital HP @45ml/hr, in 24 hr, Pt will receive 94g protein, 1080lkcal 903ml free water, meeting pts needs at 97% protein and 100% energy. 3. Consider TPN to meet pt's needs if Pt does not tolerate TF well. 4. Reassess when pt extubated, advance to CCHO-60 PO diet after passing a CROWN WHEEL ASSEMBLER evluation. Expected Outcomes/Goals: off intubation, advance to CCHO-60 Cardiac diet, gradual wt loss DALIA VALDOVINOS RESIDENT Jul 30, 2025 18:44
[2025-07-30] MEDS: CLOPIDOGREL BISULFATE 75 MG TAB ONE (20:16)
[2025-07-31] VITALS (105 sets, daily range): BP systolic 86–192; BP diastolic 18–113; PULSE 62–109; RESP 13–34; TEMP 97.5–98.8; O2SAT 92–100
--- NOTE | 2025-07-31 03:14 | DVH ---
CHEST RADIOGRAPH Indication: Evaluate pleural effusion Technique: Single frontal view of the chest was obtained Comparison: XY CHEST XRAY 1 VIEW on DOS: 07/30/25, XY CHEST XRAY 1 VIEW on DOS: 07/29/25, XY CHEST XRAY 1 VIEW on DOS: 07/28/25 IMPRESSION: Heart is prominent in size. Support lines and tubes appear unchanged in satisfactory position. There are small to moderate bilateral pleural effusions, right greater than left, likely with associated atelectasis or consolidation. No pneumothorax.
[2025-07-31 03:52] LABS: Hematocrit 28.8 % (41.0-53.0); Hemoglobin 9.6 g/dL (13.5-17.5); Mean Corpuscular Hemoglobin 28.0 pg (28.0-32.0); Mean Corpuscular Volume 84.0 fL (80.0-100.0); Nucleated Red Blood Cells % 0.0 %
[2025-07-31 04:02] LABS: Chloride 105 mmol/L (98-107); Sodium 144 mmol/L (136-145)
[2025-07-31 04:03] LABS: Anion Gap 11 (5-15); Carbon Dioxide 28 mmol/L (20-31)
[2025-07-31 04:06] LABS: Calcium 8.0 mg/dL (8.7-10.4); Potassium 3.4 mmol/L (3.5-5.1)
[2025-07-31 04:08] LABS: BUN/Creatinine Ratio 29.7 (10.0-20.0); Blood Urea Nitrogen 19 mg/dL (9-23)
[2025-07-31 04:09] LABS: Magnesium 2.2 mg/dL (1.6-2.6)
[2025-07-31 04:26] LABS: Glucose 128 mg/dL (74-106)
[2025-07-31 04:42] LABS: INR 1.14 (0.9-1.15); Partial Thromboplastin Time 28.4 SEC (24.5-34.5); Prothrombin Time 11.9 sec (9.3-11.8)
[2025-07-31] MEDS: POTASSIUM CHL 20MEQ/100ML 100 ML IV SCH (05:53)
[2025-07-31 07:33] LABS: Base Excess -0.2 mmol/L (-2.0-3.0)
[2025-07-31] MEDS ORDERED: Vital AF 1.2 Cal 1 liter bottle GT SCH (19:45)
[2025-08-01] VITALS (65 sets, daily range): BP systolic 87–187; BP diastolic 17–155; PULSE 66–119; RESP 8–35; TEMP 97.7–99; O2SAT 94–100
[2025-08-01 03:36] LABS: Hematocrit 30.3 % (41.0-53.0); Hemoglobin 10.0 g/dL (13.5-17.5); Mean Corpuscular Hemoglobin 27.5 pg (28.0-32.0); Mean Corpuscular Volume 83.7 fL (80.0-100.0); Nucleated Red Blood Cells % 0.1 %
[2025-08-01 03:49] LABS: Anion Gap 11 (5-15); Carbon Dioxide 28 mmol/L (20-31); Chloride 103 mmol/L (98-107); Potassium 3.8 mmol/L (3.5-5.1); Sodium 142 mmol/L (136-145)
[2025-08-01 03:55] LABS: BUN/Creatinine Ratio 23.7 (10.0-20.0); Blood Urea Nitrogen 14 mg/dL (9-23); Calcium 8.1 mg/dL (8.7-10.4); Glucose 90 mg/dL (74-106); Magnesium 2.1 mg/dL (1.6-2.6)
[2025-08-01] MEDS: POTASSIUM CHL 20MEQ/100ML 100 ML IV ONE (05:54)
--- NOTE | 2025-08-01 07:12 | DVHDSRES ---
Discharge Summary Date of Admission Resident Creating Document: DALIA VALDOVINOS RESIDENT Jun 28, 2025 at 19:13 Date of Discharge: Jul 31, 2025 Admitting Diagnosis AFib with RVR Wounds: Left lower leg has a closed, dry, healing ulcer measuring 3.5x2.6cm with adhered, dusky red and rosales eschar. Labs/Diagnostic Data: Laboratory Results Test 08/01/25 06:02 08/01/25 03:05 07/31/25 07:01 07/31/25 03:00 POC Glucose 94 mg/dl (70-106) White Blood Count 10.2 10^3/uL (4.4-10.8) Red Blood Count 3.62 10^6/uL (4.5-5.90) Hemoglobin 10.0 g/dL (13.5-17.5) Hematocrit 30.3 % (41.0-53.0) Mean Corpuscular Volume 83.7 fL (80.0-100.0) Mean Corpuscular Hemoglobin 27.5 pg (28.0-32.0) Mean Corpuscular Hemoglobin Concent 32.9 g/dL (32.0-36.0) Red Cell Distribution Width 18.2 % (11.8-14.3) Platelet Count 332 10^3/uL (140-450) Mean Platelet Volume 7.8 fL (6.9-10.8) Neutrophils (%) (Auto) 79.8 % (37.0-80.0) Lymphocytes (%) (Auto) 12.0 % (10.0-50.0) Monocytes (%) (Auto) 5.5 % (0.0-12.0) Eosinophils (%) (Auto) 2.1 % (0.0-7.0) Basophils (%) (Auto) 0.6 % (0.0-2.0) Neutrophils # (Auto) 8.1 10 ^3/uL (1.6-8.6) Lymphocytes # (Auto) 1.2 10 ^3/uL (0.4-5.4) Monocytes # (Auto) 0.6 10 ^3/uL (0-1.3) Eosinophils # (Auto) 0.2 10 ^3/uL (0-0.8) Basophils # (Auto) 0.1 10 ^3/uL (0-0.2) Nucleated Red Blood Cells 0.1 % Sodium Level 142 mmol/L (136-145) Potassium Level 3.8 mmol/L (3.5-5.1) Chloride Level 103 mmol/L (98-107) Carbon Dioxide Level 28 mmol/L (20-31) Anion Gap 11 (5-15) Blood Urea Nitrogen 14 mg/dL (9-23) Creatinine 0.59 mg/dL (0.700-1.30) Glomerular Filtration Rate Calc 103 mL/min (>90) BUN/Creatinine Ratio 23.7 (10.0-20.0) Serum Glucose 90 mg/dL (74-106) Calcium Level 8.1 mg/dL (8.7-10.4) Magnesium Level 2.1 mg/dL (1.6-2.6) Blood Gas Specimen Type Arterial Blood Gas Sample Site Left radial Blood Gas Patient Temperature 37.0 Arterial Blood Date Drawn [id number] Arterial Blood pH 7.481 (7.350-7.450) Arterial Blood Partial Pressure CO2 31.1 mmHg (35.0-48.0) Arterial Blood Partial Pressure O2 67.3 mmHg (83.0-108.0) Arterial Blood HCO3 22.7 mmol/L (21.0-28.0) Arterial Blood Oxygen Saturation 93.3 % (94.0-98.0) Arterial Blood Base Excess -0.2 mmol/L (-2.0-3.0) Arterial Blood Oxyhemoglobin 91.9 % (94.0-98.0) Arterial Blood Carboxyhemoglobin 1.0 % (0.5-1.5) Arterial Blood Methemoglobin 0.5 % (0.0-1.5) Arterial Blood Deoxyhemoglobin 6.6 % (0.0-5.0) Ryan Test Yes Blood Gas Total Hemoglobin 10.90 g/dL (13.5-17.5) Blood Gas Liter Flow 6.00 Blood Gas Modality Cool aerosol FiO2 % 28.0 Prothrombin Time 11.9 sec (9.3-11.8) Prothrombin Time INR 1.14 (0.9-1.15) Activated Partial Thromboplast Time 28.4 SEC (24.5-34.5) Phosphorus Level 2.8 mg/dL (2.4-5.1) Test 07/30/25 09:21 07/28/25 03:35 07/27/25 05:00 07/24/25 05:30 Blood Gas Set Respiration Rate 18.0 Blood Gas Tidal Volume 400.0 Blood Gas PEEP or CPAP 5.0 Total Bilirubin 2.0 mg/dL (0.2-1.0) Aspartate Amino Transferase (AST) 23 U/L (13-40) Alanine Aminotransferase (ALT) 14 U/L (7-40) Alkaline Phosphatase 97 U/L (46-116) Total Protein 6.6 g/dL (5.7-8.2) Albumin 3.0 g/dL (3.2-4.8) Urine Color Yellow (Yellow) Urine Clarity Turbid (Clear) Urine pH 6.0 (5.0-9.0) Urine Specific [place] 1.029 (1.001-1.035) Urine Protein 1+ (Negative) Urine Ketones 2+ (Negative) Urine Blood 3+ /uL (Negative) Urine Nitrite Negative (Negative) Urine Bilirubin Negative (Negative) Urine Urobilinogen Over mg/dL (Negative) Urine Leukocyte Esterase 3+ /uL (Negative) Urine RBC 264 /hpf (0 - 3) Urine Microscopic WBC 119 /HPF (0-3) Urine Squamous Epithelial Cells None seen /hpf (<5) Urine Bacteria None seen /hpf (None Seen) Urine Mucus Few (None Seen) Urine Yeast (Budding) Loaded /hpf (None Seen) Urine Glucose 4+ mg/dL (Normal) Digoxin Level 1.53 ng/mL (0.8-2) Test 07/21/25 21:55 07/21/25 02:40 07/20/25 14:58 07/17/25 17:23 Blood Gas Critical Value Read Back Yes Blood Gas Notified Whom Anna s resident Blood Gas Notified Time [id number] Blood Gas Notified By Differential Total Cells Counted 100.0 (100) Neutrophils % (Manual) 45 (37.0-80.0) Band Neutrophils % (Manual) 2 Lymphocytes % (Manual) 33 (10.0-50.0) Monocytes % (Manual) 18 (0-12) Eosinophils % (Manual) 2 (0-7) Basophils % (Manual) 0 (0.0-2.0) Metamyelocytes % (manual) 0 Myelocytes % (Manual) 0 Promyelocytes % (Manual) 0 Blast Cells % (Manual) 0 Reactive Lymphocytes 0 Platelet Estimate Increased Blood Gas Pressure Support 8 Random Vancomycin Level 11.3 ug/mL (5-10) Test 07/17/25 10:13 07/16/25 03:10 07/15/25 02:42 07/14/25 06:38 Vancomycin Level Trough 22.4 ug/mL (5-10) Lipase 45 U/L (12-53) Triglycerides Level 112 mg/dL (< 150) Cholesterol Level 98 mg/dL (< 200) LDL Cholesterol 56 mg/dL (< 100) HDL Cholesterol 25 mg/dL (40-59) Blood Gas Spontaneous Rate 18 Test 07/01/25 18:15 06/30/25 17:01 06/29/25 11:32 06/29/25 06:11 Lactic Acid Level 1.6 mmol/L (0.4-2.0) Urine Opiates Screen Neg (NEGATIVE) Urine Fentanyl Screen Pos (NEGATIVE) Urine Barbiturates Screen Neg (NEGATIVE) Urine Phencyclidine Screen Neg (NEGATIVE) Urine Amphetamines Screen Neg (NEGATIVE) Urine Benzodiazepines Screen Pos (NEGATIVE) Urine Cocaine Screen Neg (NEGATIVE) Urine Cannabinoids Screen Neg (NEGATIVE) Vitamin B12 Level 390 pg/mL (211-911) Vitamin D 25-Hydroxy 24.8 ng/mL (30.0-100) Red Blood Cell Morphology Normal Hemoglobin A1c 10.6 % A1C (<5.7) Test 06/29/25 00:12 06/28/25 17:14 06/28/25 13:30 Troponin I High Sensitivity 955 ng/L (</=54) Thyroid Stimulating Hormone (TSH) 1.43 uIU/mL (0.55-4.78) B-Type Natriuretic Peptide 302.02 pg/mL (0-100) Other Laboratory Tests 08/01/25 03:05 Brief Hx & Hospital Course: Mr. 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 On arrival to the ED patient was found to have atrial fibrillation with RVR and was started on a diltiazem drip to control his heart rate. The patient was admitted for further work up and monitoring. Patient progressed to cardiac arrest secondary to possible ventricular tachycardia or [place]. Patient required CPR and ACLS maneuvers for 8 minutes followed by endotracheal intubation, obtaining ROSC. He was placed Patient was initially on amiodarone drip which was later discontinued after magnesium was given for QT prolongation. Due to elevated troponins, patient was taken to coronary angiography on 06/29/2025, where he was found to have triple- vessel disease. Cardiology decided to staged approach, placing 4 drug-eluting stent in the circumflex artery. echocardiogram from 07/02/2025 shows LVEF 20%, moderate LV enlargement, severe end-stage heart failure, RV dysfunction, aortic stenosis, moderate MAC, mitral regurgitation, mild tricuspid regurgitation, and moderate pulmonary hypertension. Patient was taken back to [facility] on 07/05/2025 were 3 drug-eluting stents were placed in the LAD, and on 07/12/2025 which was unsuccessful for PTCA of mid RCA and unsuccessful cardioversion. Due to difficulty controlling AFib, digoxin was started. Given persistent tachy- sergio events, a micra pacemaker was implanted on 07/19/2025. Micra interrogated and adjusted, with patient maintaining adequate heart rate. Additionally, patient began spiking fevers with associated elevation of WBCs. Patient was started on IV vancomycin, IV meropenem, and levophed. Blood cultures were drawn and were negative, one set shows signs of contamination. Urine cultures were negative. Sputum cultures originally growing pseudomonas aeruginosa and serratia marcescens, for which meropenem was switched to Zosyn. Secondary cultures growing pseudomonas aeruginosa CRE. Infectious disease was consulted and started the patient on Zebraxa. He was taken off pressors and sedation was decreased, for multiple CPAP trials, which he failed. Patient was extubated on 07/20/2025, but required reintubation. On 07/21/2025, patient presented episode of Vfib requiring 6 minutes of CPR with ROSC obtained. Given patient's patient condition and inability to be taken off the ventilator, tracheostomy was required. Sanchez gave authorization for procedure to be performed at this institution. Patient underwent tracheostomy on 07/26/2025 with no complications. He has tolerated trach collar trials. Per infectious disease, he has completed antibiotic course with Zebraxa. He continues on micafungin. On evaluation, he is alert, communicates by nodding or shaking his head, and complies with commands within the best of his ability. The patient is stable for transfer to LTAC, has been accepted at [facility]. Physical Exam General: Awake, alert, complies with commands HEENT: Normocephalic, atraumatic, moist mucous membranes, presence of NG tube, presence of tracheostomy with dried blood Respiratory/pulmonary: Clear lungs bilaterally, vesicular murmurs present in almost all lung roberts, no associated crackles or wheezes. Cardiovascular: Normal heart sounds S1 and S2 with no associated murmurs Abdomen: Abdomen nondistended, there is no pain to palpation in any of the abdominal quadrants, no palpable masses. Right flank bruise Extremities: Edema noted in bilateral hands, bilateral erythematous and ulcerated lesions. Skin: No rashes or pruritus, there is no sacral edema present at this time Neurologic: Alert, compliant with commands, strength in right hand and leg 1/5, strength in left hand and leg 4/5 Nurse Educator was consulted for transfer to [facility] Plan discussed with Dr. Aguirre Goals of care discussed with the patient's at bedside, Myrna. Critical care time 67 minutes, excluding procedures Operations or Procedures 06/29/25 Preop Diagnosis: Severe CAD. Status post ventricular tachycardia. Postop Diagnosis: Three-vessel coronary artery disease. Severe ischemic cardiomyopathy. Subacute thrombosis of circumflex coronary artery. Surgeon: Paul Mtz MD Anesthesiologist: Conscious sedation Anesthesia: Mac, Local Consent: The patient was informed of the risks and benefits of the procedure. These include but are not limited to complications of anesthesia, postoperative infection, incomplete relief of symptoms, recurrence of symptoms, damage to blood vessels, nerves and tendons, deep venous thrombosis, pulmonary embolism and possible need for repeat surgery in the future. Complications: No complications Findings: Severe three-vessel coronary artery disease. Cardiomyopathy. Indications for Surgery: Recent myocardial infarction. Recurrent ventricular tachycardia Name of Procedure Performed Bilateral cine coronary angiography. Left ventriculography. PTCA and stenting of the circumflex coronary artery.:. Procedure Details Procedure Details: Prior local anesthesia with 2% lidocaine to the right wrist and full informed consent obtained the patient was prepped and draped in usual fashion followed by placement of a six Australian slender sheath into the radial artery followed by a Ankit catheter to performed ventriculography cannulation of both right and left coronary ostia without complications Hemodynamics: Aortic blood pressure was 100/50. End-diastolic pressure was 18. There was no gradient across the aortic valve on pullback. Coronary anatomy: The RCA is a large dominant vessel. It has moderate plaquing in his proximal and mid section. The distal segment prior to the origin of the PDA and throughout the trans course to the posterolateral branches has severe disease with tandem lesions of 75-90% stenosis. Diminished flow to the PDA and posterolateral branches noted. Collateralization noted to the circumflex coronary artery. Left main is large and normal. Left anterior descending coronary artery was a large vessel with a proximal 90% stenosis. There was a mid 95% stenosis. Moderate plaquing throughout with the diagonals are free of significant disease. The circumflex is occluded at its proximal portion. Ventriculography in the CARRANZA projection shows an EF of approximately 15% Angioplasty was performed for which a 4.0 EBU guide was then placed into the left main and a Specter wire was used to cross the area of stenosis within the proximal circumflex. We placed the wire distally crossing several lesions into the distal circumflex. We took a 2-0 balloon and pre-dilated to the proximal and midportion. We noted that we were in the circumflex proper which is a smaller vessel and we diverted the wire into the obtuse marginal branch which was a large vessel also with multiple lesions present. We dilated the distal lesion which is a 80% stenosis and the lesion just distal to the bifurcation of the circumflex which had another 80% hazy lesion. The mid circumflex was also dilated which was a calcified and hazy lesion. The proximal circumflex was also dilated which had a 95+% stenosis prior to the origin of the complete occlusion. We then placed a two 5 x 12 mm stent into the distal obtuse marginal branch. We placed a two 5 x 12 just distal to the origin of the marginal at the takeoff of the circumflex bifurcation. We then placed a 18 by 3-0 stent into the mid circumflex and a 3-0 by 12 mm stent into the ostium excellent antegrade flow without thrombus formation and/or dissection. Impression successful PTCA and stenting and aperture of the occluded circumflex coronary artery. Decreased left ventricular ejection fraction. Elevated left ventricular end-diastolic pressures. Significant CAD of the RCA and LAD. Recommendations: a staged procedure of the RCA and LAD at a later date. Continue dual antiplatelet therapy. Risk factor modifications and guideline directed medical therapy for his cardiomyopathy. Date: 07/12/25 Preop Diagnosis: Severe CAD. Postop Diagnosis: Atrial fibrillation. Coronary artery disease Surgeon: Paul Mtz MD Anesthesiologist: Conscious sedation Anesthesia: Mac, Local Consent: The patient was informed of the risks and benefits of the procedure. These include but are not limited to complications of anesthesia, postoperative infection, incomplete relief of symptoms, recurrence of symptoms, damage to blood vessels, nerves and tendons, deep venous thrombosis, pulmonary embolism and possible need for repeat surgery in the future. Complications: No complications Indications for Surgery: Severe stenosis of RCA Name of Procedure Performed PTCA of mid RCA. Shockwave lithotripsy of the mid RCA. Attempted DC cardioversion of atrial fibrillation, (unsuccessful) Procedure Details Procedure Details: Prior local anesthesia with 2% lidocaine to the right wrist and full informed consent obtained the patient was prepped and draped in usual fashion followed by placement of a six Australian slender sheath into the radial artery followed by placement of a three five EBU guide for angioplasty and stenting of the RCA. Hemodynamics: Aortic blood pressure was 100/50. End-diastolic pressure was not measured. Coronary anatomy: The RCA is a large dominant vessel. It has moderate plaquing in his proximal and mid section. There was significant calcification of the mid and distal RCA T Ventriculography was not performed. Angioplasty was attempted with a 3.5 EBU guide which was then placed into the RCA. A Specter wire was used to cross the area of stenosis. We used a two five balloon to perform angioplasty on the mid RCA however we were unable to cross into the smaller sec shunt of the RCA also heavily calcified. We tried noncompliant balloons. It appears that the vessel was improving slightly and we tried a 2.5 shockwave balloon and performed retreat months. The balloon ruptured causing no eventualities and/or dissections. The vessel was intact. We were unable to pass a one five balloon distally. The indication for orbital atherectomy was considered however the patient has markedly diminished left ventricular function and an Impella device would be subsequently required. Given his frailty it was felt that the procedure would be too high risk at this time. The procedure was then terminated. Patient remained with BABATUNDE two flow without the ability to open the pre-existing lesion considered to be 75-80% stenosis at its mid to distal segment. We then attempted cardioversion at 1:20 a.m. joules which was unsuccessful and 200 joules consecutively also unsuccessful. Impression unsuccessful PTCA of the mid RCA. Unsuccessful cardioversion. Recommendations: Suggest EP evaluation for AV node ablation and/or cardioversion after attempted ablation of atrial fibrillation Date: 07/20/25 Preop Diagnosis: Severe CAD. Postop Diagnosis: Atrial fibrillation. Coronary artery disease Surgeon: Paul Mtz MD Anesthesiologist: Patient on ventilator, Conscious sedation Anesthesia: Mac, Local Consent: The patient was informed of the risks and benefits of the procedure. These include but are not limited to complications of anesthesia, postoperative infection, incomplete relief of symptoms, recurrence of symptoms, damage to blood vessels, nerves and tendons, deep venous thrombosis, pulmonary embolism and possible need for repeat surgery in the future. Complications: No complications Indications for Surgery: Tachy-sergio syndrome Name of Procedure Performed Micra pacemaker implantation Procedure Details Procedure Details: Prior local anesthesia with 2% lidocaine to the right groin and full informed consent obtained from family the patient was prepped and draped in usual fashion. A sheath was advanced into the right femoral vein under fluoroscopic and ultrasound guidance. We used 04/16/2012 and 16 Australian dilators and placed a 20 Australian sheath into the right femoral vein through which a micra Medtronic pacemaker sheath was implanted into the right atrium and interventricular septum where it was confirmed to have good capture and sensitivity thresholds as well as impedance. The micro device was subsequently disconnected from the sheath and the tethers were cut. The sheath were then removed and a [id number] stitch was used to close the skin over the femoral vein. Patient tolerated the procedure well there were no complications. A TP S, MC 2 AV AR1 micra AV 2, serial number in [id number] by Medtronic was implanted into the interventricular septum. The right ventricular R-wave was 9.9 with a pacing impedance of 1010 and a pacing threshold of 0.88 volts at 0.24 milliseconds. Impression: Successful placement of Medtronic micra permanent pacemaker implanted in RV septum without complications., sick sinus syndrome, tachy-sergio syndrome. Recommendations: Continue with negative chronotropic medication for rate control. Resume previous medications and anticoagulation if indicated. PROCEDURE(s): CXRP - CHEST PORTABLE REASON: Palpitation ORDER NUMBER(s): [id number], ACCESSION NUMBER(s): [id number] INDICATION: Palpitation TECHNIQUE: Frontal view of the chest. COMPARISON: None FINDINGS: . The heart and mediastinal contours are grossly unremarkable. There is no evidence of pleural disease. The lungs are clear. The bony structures of the chest are intact without fracture. IMPRESSION: 1. No evidence of acute disease. CHEST RADIOGRAPH Indication: central line placement Technique: Single frontal view of the chest was obtained COMPARISON: XY CHEST XRAY 1 VIEW on DOS: 06/29/25, XY CHEST PORTABLE on DOS: 06/28/25 FINDINGS: Lines and Tubes: Endotracheal tube, enteric catheter and right central venous catheter in satisfactory position. Lungs: Unchanged pulmonary vascular congestion. Pleura: No effusion. No pneumothorax. Cardiomediastinal contours: Unremarkable Bones: Unremarkable IMPRESSION: Right central venous catheter in satisfactory position. No appreciable pneumothorax. REASON: Pleural effussion ORDER NUMBER(s): [id number], ACCESSION NUMBER(s): [id number] Exam: US CHEST ULTRASOUND Clinical History: Pleural effussion Comparison: XY CHEST XRAY 1 VIEW on DOS: 07/04/25, XY CHEST PORTABLE on DOS: 07/03/25, XY CHEST XRAY 1 VIEW on DOS: 07/02/25, XY CHEST XRAY 1 VIEW on DOS: 07/01/25, XY CHEST PORTABLE on DOS: 06/30/25 Technique: Targeted sonographic evaluation of the soft tissues of the bilateral chest was obtained utilizing grayscale and color Doppler imaging. Findings/Impression: Trace right pleural effusion. No left pleural effusion. CT HEAD WITHOUT CONTRAST INDICATION: tremors COMPARISON: None TECHNIQUE: CT of the head without intravenous contrast. RADIATION DOSE: CTDIvol: 64 mGy, DLP: 1131 mGy*cm FINDINGS: There is no evidence of acute intracranial hemorrhage, extra-axial collection, mass effect, midline shift, herniation or hydrocephalus. The ventricles, sulci and cisterns are age appropriate. The purcell-white differentiation is intact. Chronic encephalomalacia is seen in the left temporoparietal lobe, likely sequelae of a remote infarct. Mucosal thickening of the bilateral maxillary sinuses. The surrounding soft tissues and osseous structures are unremarkable. IMPRESSION: 1. No acute intracranial abnormality. 2. Bilateral maxillary sinusitis. 3. Chronic encephalomalacia in the left temporoparietal lobe, likely sequelae of a remote infarct. CHEST RADIOGRAPH Indication: on vent Technique: 1 view Comparison: XY CHEST XRAY 1 VIEW on DOS: 07/06/25, XY CHEST XRAY 1 VIEW on DOS: 07/05/25, XY CHEST XRAY 1 VIEW on DOS: 07/04/25, XY CHEST PORTABLE on DOS: 07/03/25, XY CHEST XRAY 1 VIEW on DOS: 07/02/25 FINDINGS: Lines and Tubes: Unchanged. Lungs/Pleura: Unchanged. Cardiomediastinum: Unchanged. Other: Unchanged osseous structures. IMPRESSION: No significant change from the previous day. Stable support devices. Similar graded mid to basilar opacities. CHEST RADIOGRAPH Indication: on vent Technique: Single frontal view of the chest was obtained Comparison: XY CHEST XRAY 1 VIEW on DOS: 07/08/25, XY CHEST XRAY 1 VIEW on DOS: 07/07/25, XY CHEST XRAY 1 VIEW on DOS: 07/06/25 IMPRESSION: Support lines and tubes appear unchanged in satisfactory position. There is cardiomegaly. Small bilateral pleural effusions, right greater than left appear similar to prior examination with mild pulmonary vascular congestion. No significant interval change. No pneumothorax. Bilateral Chest Sonogram Clinical history: pleural effusion Technique: Limited sonographic evaluation of the right and left chest was performed. Findings/Impression: There is a trace right and no left pleural effusion. CHEST RADIOGRAPH Indication: TUBE EXCHANGE/ NG PLACEMENT Technique: Single frontal view of the chest was obtained COMPARISON: XY CHEST XRAY 1 VIEW on DOS: 07/12/25, XY CHEST XRAY 1 VIEW on DOS: 07/11/25, US CHEST ULTRASOUND on DOS: 07/10/25, XY CHEST XRAY 1 VIEW on DOS: 07/10/25, XY CHEST XRAY 1 VIEW on DOS: 07/09/25 FINDINGS: Lines and Tubes: Endotracheal tube, enteric catheter and right PICC in satisfactory position. Lungs: Unchanged multifocal airspace disease. Pleura: No effusion.No pneumothorax. Cardiomediastinal contours: Unremarkable Bones: Unremarkable IMPRESSION: Lines and tubes in satisfactory position. No significant interval change. CHEST RADIOGRAPH Indication: on vent Technique: Single frontal view of the chest was obtained Comparison: XY CHEST XRAY 1 VIEW on DOS: 07/13/25. FINDINGS: Lines and Tubes: There is a right PICC with its tip terminating in the right atrium. The enteric tube courses below the left hemidiaphragm and the tip extends outside the field of view. The endotracheal tube terminates 3.8 cm above the kolby. Lungs: Bibasilar airspace disease similar to prior study. Pleura: Similar bilateral pleural effusions. No pneumothorax. Cardiomediastinal contours: Cardiomegaly. Bones: No acute osseous abnormality. IMPRESSION: 1. Support tubes in appropriate position. 2. Bibasilar airspace disease and bilateral pleural effusions similar to prior study. EXAM: XY CHEST PORTABLE HISTORY: S/P PICC LINE PLACEMENT. COMPARISON: XY CHEST XRAY 1 VIEW on DOS: 07/14/25, XY CHEST XRAY 1 VIEW on DOS: 07/13/25, XY CHEST PORTABLE on DOS: 07/12/25, XY CHEST XRAY 1 VIEW on DOS: 07/12/25, XY CHEST XRAY 1 VIEW on DOS: 07/11/25 TECHNIQUE: Portable AP view of the chest was performed. FINDINGS: There is an endotracheal tube with its tip 3.6 cm above the kolby. OG tube tip is distal to the GE junction. There is a right subclavian central line. There is a new right upper extremity PICC line with its tip in the lower SVC. There are infiltrates and effusions in the lung bases, greater on the right. The hemidiaphragms are obscured. No pneumothorax. The heart is enlarged. The thoracic aorta is calcific. IMPRESSION: 1. Mechanical ventilation with tubes and lines as above. 2. New right upper extremity PICC line in good position. 3. Bilateral lung base infiltrates and effusions, apyxo-hbzqtgl-qxfi-left. EXAM: CT CT AB PEL WO CON-NO ORAL OR IV INDICATION: R/O hematoma or fluid collection on right flank TECHNIQUE: Volumetric multidetector CT images of the abdomen and pelvis were obtained without contrast. All CT scans at this facility use dose modulation, iterative reconstruction, and/or weight based dosing when appropriate to reduce radiation dose to as low as reasonably achievable. COMPARISON: None FINDINGS: [LOWER CHEST]: Small to medium right sided pleural effusion. Partial collapse of bilateral lower lobes. Coronary artery calcifications. trace pericardial effusion. [LIVER]: Normal hepatic size without suspicious focal lesion. [GALLBLADDER AND BILIARY TREE]: Presumed vicarious excretion of contrast within the gallbladder [SPLEEN]: Unremarkable. [PANCREAS]: Unremarkable. [ADRENAL GLANDS]: Unremarkable [KIDNEYS]: No hydronephrosis. No nephroureterolithiasis. Streak artifact crossing the abdomen and therefore attenuation of the kidneys can not be accurately assessed however possible retention of areas of contrast/enhancement of the kidneys suggestive of medical renal disease /injury [BLADDER]: Decompressed [REPRODUCTIVE ORGANS]: Unremarkable. [BOWEL/MESENTERY]: Decompressed with nasogastric tube. Mgas-tp-uwbnsdrg stool burden. Air-fluid level throughout the ascending to transverse colon without dilation rectal temperature probe. Minimal sigmoid diverticulosis [ASCITES]: Absent [LYMPHADENOPATHY]: No pathologically enlarged lymph nodes by CT size criteria [VASCULATURE]: No aneurysmal dilatation. [ABDOMINAL WALL]: Significant qdof-kxewjve-lprv-right rectus abdominis muscle hematomas. Left side demonstrates fluid fluid level compatible with varying stages of blood productsr left-sided measures 7.7 x 9 cm. Right-sided measures 4.3 x 7.8 cm. [MUSCULOSKELETAL]: No acute fracture or aggressive focal osseous lesion. Multifocal degenerative change of the visualized spine. IMPRESSION: 1. Significant hxjj-fowdyoe-unjo-right rectus abdominis muscle hematomas. Left side demonstrates fluid fluid level compatible with varying stages of blood productsr left-sided measures 7.7 x 9 cm. Right-sided measures 4.3 x 7.8 cm. CHEST RADIOGRAPH Indication: on vent Technique: Single frontal view of the chest was obtained COMPARISON: XY CHEST XRAY 1 VIEW on DOS: 07/17/25, XY CHEST XRAY 1 VIEW on DOS: 07/16/25, XY CHEST XRAY 1 VIEW on DOS: 07/15/25, XY CHEST PORTABLE on DOS: 07/14/25, XY CHEST XRAY 1 VIEW on DOS: 07/14/25 FINDINGS: Tracheostomy tube tip terminating 3.8 cm above the kolby. Right-sided PICC line with tip near the cavoatrial junction. NG tube in the centered in the stomach, tip extending beyond the field of view. Stable mild enlargement of the cardiac silhouette. Stable small bilateral pleural effusions with associated atelectasis/ consolidation at both lung bases. No pneumothorax or other adverse interval change. IMPRESSION: Stable findings. CHEST RADIOGRAPH Indication: on vent Technique: Single frontal view of the chest was obtained Comparison: US CHEST ULTRASOUND on DOS: 07/18/25 FINDINGS: Lines and Tubes: The endotracheal tube terminates 3.8 cm above the kolby. The enteric tube courses below the left hemidiaphragm and the tip extends outside the field of view. There is a right PICC with its tip terminating in the superior vena cava. Lungs: Bilateral lower lobe opacities. Pleura: Bilateral pleural effusions. No pneumothorax. Cardiomediastinal contours: Stable cardiomegaly. Bones: No acute osseous abnormality. IMPRESSION: 1. Bilateral lower lobe opacities and bilateral pleural effusions similar to prior study. 2. Cardiomegaly. Indication: Edema rule out DVT Comparison: None Findings: There is normal compressibility and flow augmentation in all of the imaged deep veins. There are no filling defects. The right basilic and left cephalic veins are not visualized. PICC line in the right cephalic vein. Impression: No evidence of DVT in the imaged portion of the bilateral upper extremities. MEDICAL RECORDS NUMBER: [id number] PROCEDURE: XY CHEST XRAY 1 VIEW DATE: 07/21/2025 05:37 AM HISTORY: on vent Views:1 COMPARISON: XY CHEST PORTABLE on DOS: 07/20/25, XY CHEST XRAY 1 VIEW on DOS: 07/20/25, XY CHEST XRAY 1 VIEW on DOS: 07/19/25, XY CHEST XRAY 1 VIEW on DOS: 07/18/25, XY CHEST XRAY 1 VIEW on DOS: 07/17/25 FINDINGS/IMPRESSION: Lungs: Hazy density of the right lung is concerning for infiltrates. Study is somewhat hampered by overlying soft tissues. Mediastinum: Mediastinal structures appear unremarkable.A endotracheal tube is seen with the tip projecting approximately 2 cm above the kolby.Nasogastric tube courses through the film. Skeletal: The skeletal structures appear unremarkable. CHEST RADIOGRAPH Indication: TUBE PLACEMENT Technique: XY CHEST XRAY 1 VIEW COMPARISON: 07/22/2025 FINDINGS: Endotracheal tube tip projects 4.2 cm above the kolby. Nasogastric tube projects towards stomach. Right PICC line tip projects over the SVC. The cardiac silhouette is enlarged. The lungs demonstrate bilateral patchy airspace opacities, increased from the previous examination. The pulmonary vasculature is prominent. Moderate bilateral pleural effusions.. There is no pneumothorax. IMPRESSION: As above MEDICAL RECORDS NUMBER: [id number] PROCEDURE: XY CHEST XRAY 1 VIEW DATE: 07/24/2025 04:27 AM HISTORY: on vent Views:1 COMPARISON: XY CHEST PORTABLE on DOS: 07/23/25, XY CHEST XRAY 1 VIEW on DOS: 07/22/25, XY CHEST XRAY 1 VIEW on DOS: 07/22/25, XY CHEST XRAY 1 VIEW on DOS: 07/21/25, XY CHEST PORTABLE on DOS: 07/20/25 FINDINGS/IMPRESSION: Lungs: Bibasilar infiltrates and pleural fluid is seen. Mediastinum: Mediastinal structures appear unremarkable.A endotracheal tube is seen with the tip projecting approximately 2 cm above the kolby.A right-sided central line is seen. The tip projects over the superior vena cava. No pneumothorax is seen. NG tube courses through the films Skeletal: The skeletal structures appear unremarkable. INDICATION: evaluate for acalculous cholecystitis TECHNIQUE: Multiple real-time sonographic images were obtained of the right upper quadrant. COMPARISON: XY KUB ABDOMEN SINGLE VIEW on DOS: 07/14/25 FINDINGS: The liver demonstrates heterogeneous echotexture without focal mass lesions. The liver measures 18.3 cm. There is no intrahepatic or extrahepatic ductal dilatation. The common duct measures 0.9 cm. The gallbladder is without evidence of stone or sludge. The gallbladder wall measures 0.2 cm and is within normal limits. The right kidney measures 9.2 cm. The right kidney is normal in contour, size, and shape. The echogenicity is normal. There is no hydronephrosis. The pancreas is not well visualized due to overlying bowel gas. Trace left pleural effusion. IMPRESSION: No sonographic evidence of gallstones or acute cholecystitis. Hepatic steatosis. Trace left pleural effusion. CHEST RADIOGRAPH Indication: Post tracheostomy Technique: Single frontal view of the chest was obtained COMPARISON: XY CHEST PORTABLE on DOS: 07/26/25, XY CHEST XRAY 1 VIEW on DOS: 07/26/25, XY CHEST XRAY 1 VIEW on DOS: 07/26/25, XY CHEST XRAY 1 VIEW on DOS: 07/25/25, XY CHEST XRAY 1 VIEW on DOS: 07/24/25 FINDINGS: Lines and Tubes: Tracheostomy and enteric catheter and right PICC in satisfactory position. Lungs: Pulmonary edema. Pleura: Small bilateral pleural effusions, right greater than left. No pneumothorax. Cardiomediastinal contours: Cardiomegaly. Bones: Unremarkable IMPRESSION: Lines and tubes in satisfactory position. No significant interval change. Bilateral Upper Extremity Venous Duplex Date: 07/28/2025 09:11 AM Clinical History: Edema Comparison: US BI LAT UPPER DVT on DOS: 07/20/25 Findings: Duplex Doppler evaluation of the venous systems of the right and left lower neck and upper extremities including color Doppler and spectral/pulsed waveform analysis was performed. RIGHT SIDE: The internal jugular vein demonstrates appropriate compressibility and waveform variability. The subclavian vein is patent on color Doppler evaluation without intraluminal thrombus and demonstrates waveform variability. The visualized portion of the brachiocephalic vein is patent on color Doppler evaluation without intraluminal thrombus and demonstrates waveform variability. The axillary vein demonstrates appropriate compressibility and waveform variability. The brachial veins demonstrate appropriate compressibility and patency on Doppler evaluation. The basilic vein demonstrates appropriate compressibility and patency on Doppler evaluation. The cephalic vein demonstrates appropriate compressibility and patency on Doppler evaluation. LEFT SIDE: The internal jugular vein demonstrates appropriate compressibility and waveform variability. The subclavian vein is patent on color Doppler evaluation without intraluminal thrombus and demonstrates waveform variability. The visualized portion of the brachiocephalic vein is patent on color Doppler evaluation without intraluminal thrombus and demonstrates waveform variability. The axillary vein demonstrates appropriate compressibility and waveform variability. The brachial veins demonstrate appropriate compressibility and patency on Doppler evaluation. The basilic vein demonstrates appropriate compressibility and patency on Doppler evaluation. Cephalic thrombus noted IMPRESSION: No DVT RUE Cephalic veins thrombus in the left upper extremity. If clinical concern/symptoms persist or worsen, short-interval follow-up study is suggested. CHEST RADIOGRAPH Indication: aCUTE HYPOXIC RESPIRATORY FAILURE Technique: Single frontal view of the chest was obtained COMPARISON: XY CHEST XRAY 1 VIEW on DOS: 07/29/25, XY CHEST XRAY 1 VIEW on DOS: 07/28/25, XY CHEST XRAY 1 VIEW on DOS: 07/27/25, XY CHEST PORTABLE on DOS: 07/26/25, XY CHEST XRAY 1 VIEW on DOS: 07/26/25 FINDINGS: Lines and Tubes: Tracheostomy and enteric catheter in satisfactory position. Right PICC in satisfactory position. Lungs: Right lower lobe airspace disease. Pleura: No effusion.No pneumothorax. Cardiomediastinal contours: Cardiomegaly. Bones: Unremarkable IMPRESSION: Lines and tubes in satisfactory position. No significant interval change Condition at Discharge: Stable Final Diagnosis/Problems List Sedated Acute metabolic encephalopathy History of CVA-with residual aphasia, right-sided deficit ROSC s/p Cardiac arrest and CPR Newly diagnosed coronary artery disease - triple-vessel disease Dyslipidemia NSTEMI type 1 status post PCI Prolonged QT Paroxysmal atrial fibrillation with RVR End Stage Heart Failure Moderate Pulmonary Hypertension Acute hypoxic respiratory failure Pneumonia (gram +/ gram -/ aspiration) Transaminitis KEANU likely hemodynamically mediated/VMN Septic shock secondary to pneumonia (gram +/ gram -/ aspiration) -Ruled out Ventilator associated pneumonia Mild normocytic anemia Uncontrolled diabetes mellitus, HbA1c 10.6 Discharge Disposition: Acute Care Facility Discharge Instruct/Medications Diet: See Comment Diet comment: tube feedings Activity: Bed rest Follow Up/Referral: ruma with [facility] Medications: per emr Discharge Statement: "Patient was advised to return to the ER or call 911 if any headaches, dizziness, shortness of breath, chest pain, abdominal pain, bleeding, fevers, or worsening of medical condition. Patient was counseled about treatment plan, medications, possible side effects, patientverbalized understanding. All questions were answered to the best of my ability. This discharge took greater then 30 minutes in planning, reviewing documentation, counseling the patient, and discussing with other team members." ASSESSMENT ASSESSMENT Assessment SedatedAcute metabolic encephalopathyHistory of CVA-with residual aphasia, right-sided deficitROSC s/p Cardiac arrest and CPRNewly diagnosed coronary artery disease - triple-vessel diseaseDyslipidemiaNSTEMI type 1 status post PCI Prolonged QTParoxysmal atrial fibrillation with RVREnd Stage Heart Failure Moderate Pulmonary Hypertension Acute hypoxic respiratory failure Pneumonia (gram +/ gram -/ aspiration)TransaminitisAKI likely hemodynamically mediated/VMNSeptic shock secondary to pneumonia (gram +/ gram -/ aspiration)- Ruled out Ventilator associated pneumoniaMild normocytic anemiaUncontrolled diabetes mellitus, HbA1c 10.6 Date of Service: Jul 31, 2025 Billing Provider: YOBANY AGUIRRE MD Common Visit Codes: [id number] CARE [id number] MIN DALIA VALDOVINOS RESIDENT Aug 01, 2025 07:12 YOBANY AGUIRRE MD Aug 01, 2025 14:25
--- NOTE | 2025-08-01 07:22 | DVH ---
CHEST RADIOGRAPH Indication: Eval Pleural Effusion Technique: Single frontal view of the chest was obtained COMPARISON: XY CHEST XRAY 1 VIEW on DOS: 07/31/25, XY CHEST XRAY 1 VIEW on DOS: 07/30/25, XY CHEST XRAY 1 VIEW on DOS: 07/29/25, XY CHEST XRAY 1 VIEW on DOS: 07/28/25, XY CHEST XRAY 1 VIEW on DOS: 07/27/25 FINDINGS: Lines and Tubes: Tracheostomy and enteric catheter in satisfactory position. Right PICC in satisfactory position. Lungs: Unchanged multifocal airspace disease. Pleura: No effusion. No pneumothorax. Cardiomediastinal contours: Unremarkable Bones: Unremarkable IMPRESSION: Unchanged multifocal airspace disease.
[2025-08-01 08:15] LABS: Base Excess 0.9 mmol/L (-2.0-3.0)
--- NOTE | 2025-08-01 08:18 | DVHPNRES ---
Progress Note Date Seen: Aug 01, 2025 Resident Creating Document: DALIA VALDOVINOS RESIDENT Has the PT tested + for MRSA If YES, has PT been informed?: No Medical Necessity Reason Pt with a Central, PICC or Fol: Yes The following are medically ne: PICC Line, Lau Catheter Reason for lau catheter: Strict I&O Subjective Review of Systems Mr. 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 He was found to have Afib with RVR and was placed on IV diltiazem. Patient subsequently entered in cardiac arrest with possible V-tach or Torsades de Pointes, achieving ROSC after 8 minutes of CPR, he was intubated and started on Amiodarone drip, which was later discontinued due to prolonged QTc. He was admitted for further evaluation and management. Past medical history: Hypertension, dyslipidemia, diabetes, paroxysmal atrial fibrillation diagnosed in 2016 (chads Vasc 7), 2020 CVA Past surgical history: Appendectomy Family history: Two brothers had heart disease requiring CABG at the age of 40 and 50 respectively, brother had lung cancer, mother had breast cancer Social history: with . Ex tobacco abuse (eight pack-year history of smoking) quit 30 years ago. Denies current tobacco, alcohol and other drug abuse Allergies: Denies Home medication: Pradaxa 150 mg p.o. daily, atorvastatin 40 mg p.o. daily, hydrochlorothiazide 12.5 mg p.o. daily, lisinopril 20 mg p.o. daily, glipizide, metformin a 1000 mg p.o. b.i.d., metoprolol (he quit taking for four months since it made him tired). 08/01/2025: The patient is seen in ICU. He is awake, alert, with tracheostomy in place. Not on pressors or sedation. Has remained afebrile normocardic, and hypertensive. Labs are stable. Patient's lisinopril dose was increased for better blood pressure control. PT has been working with on mobilization exercises with the patient. He is pending bed at [facility]. Objective vital signs Vital Sign Date Time Temp Pulse Resp B/P (MAP) Pulse Ox O2 Delivery O2 Flow Rate FiO2 08/01/25 07:11 96 T-piece 6 28 28 08/01/25 06:05 30 08/01/25 06:00 83 08/01/25 04:00 97.7 97.7 Total Intake and Output 07/31/25 07/31/25 08/01/25 15:00 23:00 07:00 Intake Total 270.0 ml 800 ml 744 ml Output Total 900 ml 900 ml Balance 270.0 ml -100 ml -156 ml medications Current Medications Medications Dose Ordered Sig/Jesse Route Start Time Stop Time Status Last Admin Dose Admin Insulin Human Regular HS SC 06/29/25 22:00 Cancel Insulin Human Regular AC SC 06/29/25 17:00 Cancel Insulin Glargine 12 units HS SC 07/06/25 22:00 07/31/25 22:24 12 UNITS Polyethylene Glycol 17 gm DAILY PO 07/08/25 10:00 07/27/25 09:14 17 GM Sennosides 8.6 mg HS PO 07/10/25 22:00 07/31/25 22:22 8.6 MG Lactulose 30 ml DAILY PO 07/12/25 10:00 07/23/25 09:03 30 ML Empaglifozin 10 mg DAILY PO 07/14/25 10:00 07/31/25 10:40 10 MG Sodium Chloride 10 ml QSHIFT@10,22 IV 07/14/25 22:00 07/31/25 22:22 10 ML Metoprolol Tartrate 25 mg BID PO 07/20/25 22:00 07/31/25 22:22 25 MG Labetalol HCl 10 mg Q4HP PRN IV 07/20/25 15:00 07/20/25 16:20 10 MG Purified Water 200 ml Q6HR GT 07/22/25 18:00 08/01/25 05:55 200 ML Lisinopril 2.5 mg DAILY GT 07/25/25 10:00 07/31/25 10:50 2.5 MG Micafungin Sodium 100 mg/Sodium Chloride 100 ml @ 100 mls/hr DAILY IV 07/28/25 10:00 07/31/25 10:43 100 MLS/HR Clopidogrel Bisulfate 75 mg DAILY PO 07/29/25 10:00 07/31/25 10:40 75 MG Aspirin 81 mg DAILY PO 07/29/25 10:00 07/31/25 10:41 81 MG Diagnostic Test (Pha) 1 strip Q6HR 07/29/25 18:00 08/01/25 05:55 1 STRIP Insulin Human Regular Q6HR SC 07/29/25 18:00 07/31/25 18:03 2 UNITS Dextrose 50 ml UD PRN IV 07/29/25 15:00 Enteral Nutritional Formula 1,000 ml 45ML/HR GT 07/31/25 19:45 Examination General: Awake, alert, complies with commands HEENT: Normocephalic, atraumatic, moist mucous membranes, presence of NG tube, presence of tracheostomy with dried blood Respiratory/pulmonary: Clear lungs bilaterally, vesicular murmurs present in almost all lung roberts, no associated crackles or wheezes. Cardiovascular: Normal heart sounds S1 and S2 with no associated murmurs Abdomen: Abdomen nondistended, there is no pain to palpation in any of the abdominal quadrants, no palpable masses. Right flank bruise Extremities: Edema noted in bilateral hands, bilateral erythematous and ulcerated lesions. Skin: No rashes or pruritus, there is no sacral edema present at this time Neurologic: Alert, compliant with commands, strength in right hand and leg 1/5, strength in left hand and leg 4/5 laboratory and microbiology Laboratory Tests 08/01/25 03:05 Test 08/01/25 03:05 Range/Units Serum Glucose 90 74-106 mg/dL Microbiology Date/Time Source Procedure Growth Status 07/27/25 05:00 Urine - Lau Port Urine Culture - Final Presumptive Maria Eugenia krusei Complete 07/20/25 17:43 Sputum Gram Stain - Final Complete 07/20/25 17:43 Respiratory Culture - Final Pseudomonas aeruginosa Complete 07/11/25 14:17 Blood Blood Culture - Final NO GROWTH AFTER 5 DAYS OF INCUBATION. Complete 06/29/25 04:30 Nose MRSA Screen - Final Complete Problem List/Assessment/Plan Problem List/Assessment/Plan Neurology # Sedated - Fentanyl off - Versed off - Propofol off # Acute metabolic encephalopathy # History of CVA-with residual aphasia, right-sided deficit Cardiovascular #ROSC s/p Cardiac arrest and CPR - Patient had Vtach or Torsades de Pointes on 06/28/2025 - ROSC post CPR - Patient had VFib on 07/21/2025 - ROSC post CPR #Newly diagnosed coronary artery disease - triple-vessel disease #Dyslipidemia #NSTEMI type 1 status post PCI - S/p PCI x 4 STANLEY in circumflex 06/29/2025 - S/p PCI x 3 STANLEY in LAD 07/05/2025 - S/p Unsuccessful PTCA of mid RCA, unsuccessful cardioversion - Cardiology has been reached out to to determine possibility of second attempt - Aspirin 81 mg, Clopidogrel 74 mg, Atorvastatin 40 mg - Plavix and aspirin to be started again tomorrow #Prolonged QT - Avoid Qt prolonging medications #Paroxysmal atrial fibrillation with RVR - Digoxin 250 mcg, discontinued 07/25/2025 - Metoprolol 12.5 mg p.o. b.i.d. - Micra leadless pacemaker placed, interrogated by [employer] 07/25/2025, currently set at 60 . #End Stage Heart Failure - Echocardiogram (06/29/2025): lvef 20%, moderate LV enlargement, severe end stage HF, RV dysfunction, aortic sclerosis, moderate MAC, mild cathy regurg, mild tricuspid regurg ,moderate pulm htn - Jardiance 10 mg NG daily - Lisinopril 10 mg NG daily - Metoprolol 12.5 mg NG BID daily - Per cardio, Spironolactone to be started once blood pressure is more stable # Left Pleural Effusion: - Chest Xray: The cardiac silhouette is enlarged. The lungs demonstrate bilateral patchy airspace opacities. The pulmonary vasculature is prominent. Moderate bilateral pleural effusions, [id number]-[id number]-left. There is no pneumothorax. - Lasix 20 mg IV once #Moderate Pulmonary Hypertension #Venous thrombus in left cephalic vein -Avoid using left arm for blood pressure measurements Respiratory # Ventilator -intubated (06/28/2024) -extubated (07/20/2025) -reintubated (07/20/2025) -on [facility] vent : VCAC Mode RR 18 TV 400ml, PEEP Of 5 and FiO2 of 35% -S/p Tracheostomy 07/26/2025 - [place]on 5 mg/325 mg NG q6 hours PRN has been added for pain # Acute hypoxic respiratory failure - Ventilator settings: AC mode, RR 18, VT 400, PEEP 5, FiO2 35% - S/p Tracheostomy 07/26/2025 - Will begin collar trial with 1 hour BID # Pneumonia (gram +/ gram -/ aspiration) # Ruled out Ventilator associated pneumonia - Chest x-ray: Similar bilateral inferior graded opacities, likely a combination of airspace disease and pleural effusion. - Sputum culture 07/03/2025: Pseudomonas and Serratia - Sputum 07/21/2025: Pseudomonas aeruginosa, CRE has been ruled out - Ceftolozone - tazobactam (zerbaxa) 07/23/2025 - 07/31/2025 - Meropenem (07/04-07/19) - Zosyn (07/19-07/23) - Vancomycin (07/02/2025- 07/20/2025) GI #Transaminitis - Monitor #Acalculous cholecystitis ruled out - Abdominal US 07/24/2025: No sonographic evidence of gallstones or acute cholecystitis. Hepatic steatosis. Trace left pleural effusion. # Peptic ulcer prophylaxis -Pantoprazole 40 mg IV daily # Lau catheter draining clear urine # Complicated UTI - Micafungin 100 mg IV daily - Urine culture 07/27:Presumptive Maria Eugenia krusei Nephrology #KEANU likely hemodynamically mediated/VM, resolved N -Lasix was given -Strict Is and Os -Avoid nephrotoxic drugs Infectious disease #Septic shock secondary to pneumonia (gram +/ gram -/ aspiration) -Chest x-ray: Similar bilateral inferior graded opacities, likely a combination of airspace disease and pleural effusion. 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 - Blood cultures: negative, culture from 07/01/2025 possibly contaminated - Urine culture: No growth after 48 hours - Sputum culture 06/29: Normal oropharyngeal jessica - Ceftolozone - tazobactam (zerbaxa) 07/23/2025 - 07/31/2025 - Meropenem (07/04-07/19) - Zosyn (07/19-07/23) - Vancomycin (07/02/2025- 07/20/2025) -Patient is no longer on pressors #Complicated UTI - Micafungin (07/27): 100 mg IV daily -Urine culture 07/27:Presumptive Maria Eugenia krusei Hem/onc # Mild normocytic anemia - Monitor H&H Endocrine #Uncontrolled diabetes mellitus, HbA1c 10.6 - Insulin sliding scale DVT prophylaxis: Lovenox held due to previous rectus femoris hematoma PUD prophylaxis: Protonix 40 mg IV daily Nutrition: Vital High Protein Formula Lines Airway: Intubated via ETT on 06/29. RE intubated on 07/21. Trach 07/26 Vascular Access: Central line 06/29 Lau: 06/29, Exchanged: 07/27 Drips: Fentanyl off Patient is pending transfer to LTAC, which is being organized by [place] [facility] representative. Critical care time 51 minutes excluding procedure. Code status discussed greater than 20 minutes: Full CODE STATUS. Family at bedside explained about the condition of the patient Plan discussed with Dr. Aguirre Plan discussed with: Spouse, Other (Nurse) My Orders My Orders Orders - DALIA VALDOVINOS Procedure Category Date Status Time Pt Request For Service PT 07/31/25 Logged 16:24 Abg W/ Co-Ox RT 08/01/25 Logged 04:00 Chest Xray 1 View XY 08/01/25 Resulted 04:00 Nutritional PHA 07/31/25 In Process Supplements (Vital Af 19:45 Dietary Evaluation Review Comments: 1. Protein needs based on 1.2-1.5g/protein/kg IBW d/t low GFR 2. While being intubated, offer TF Vital HP @45ml/hr, in 24 hr, Pt will receive 94g protein, 1080lkcal 903ml free water, meeting pts needs at 97% protein and 100% energy. 3. Consider TPN to meet pt's needs if Pt does not tolerate TF well. 4. Reassess when pt extubated, advance to CCHO-60 PO diet after passing a [employer] evluation. Expected Outcomes/Goals: off intubation, advance to CCHO-60 Cardiac diet, gradual wt loss Date of Service: Aug 01, 2025 Billing Provider: YOBANY AGUIRRE MD Common Visit Codes: [id number] CARE 30-74 MIN DALIA VALDOVINOS Aug 01, 2025 08:18 YOBANY AGUIRRE MD Aug 02, 2025 15:48
[2025-08-01] MEDS ORDERED: ACETAMINOPHEN 650 mg PER 20.3 mL UD GT PRN (17:00)
[2025-08-01] MEDS: HYDROcodone-ACET 5/325MG TAB GT ONE (23:59)
[2025-08-02] VITALS (74 sets, daily range): BP systolic 89–154; BP diastolic 37–90; PULSE 64–130; RESP 0–39; TEMP 37.2; O2SAT 0–100
[2025-08-02 04:12] LABS: Chloride 101 mmol/L (98-107); Potassium 3.9 mmol/L (3.5-5.1); Sodium 138 mmol/L (136-145)
[2025-08-02 04:13] LABS: Anion Gap 12 (5-15); Carbon Dioxide 25 mmol/L (20-31)
[2025-08-02 04:18] LABS: BUN/Creatinine Ratio 30.2 (10.0-20.0); Blood Urea Nitrogen 16 mg/dL (9-23); Calcium 8.0 mg/dL (8.7-10.4); Glucose 131 mg/dL (74-106)
[2025-08-02] MEDS: POTASSIUM CHL 20MEQ/100ML 100 ML IV ONE (05:19)
--- NOTE | 2025-08-02 05:43 | DVH ---
CHEST RADIOGRAPH Indication: Eval Pleural effusion Technique: Single frontal view of the chest was obtained COMPARISON: XY CHEST XRAY 1 VIEW on DOS: 08/01/25, XY CHEST XRAY 1 VIEW on DOS: 07/31/25, XY CHEST XRAY 1 VIEW on DOS: 07/30/25, XY CHEST XRAY 1 VIEW on DOS: 07/29/25, XY CHEST XRAY 1 VIEW on DOS: 07/28/25 FINDINGS: Lines and Tubes: Tracheostomy and enteric catheter and right PICC in satisfactory position. Lungs: Multifocal airspace disease. Pleura: No effusion. No pneumothorax. Cardiomediastinal contours: Cardiomegaly. Bones: Unremarkable IMPRESSION: Lines and tubes in satisfactory position. No significant interval change.
[2025-08-02] MEDS: LISINOPRIL 5 MG TAB GT SCH (09:01)
[2025-08-02] MEDS: LIDOCAINE 5% TOPICAL PATCH TOP PRN (13:04)
[2025-08-02] MEDS: HYDROcodone-ACET 5/325MG TAB PO PRN (13:06)
--- NOTE | 2025-08-02 13:07 | DVHPNRES ---
Progress Note Date Seen: Aug 02, 2025 Resident Creating Document: DALIA VALDOVINOS RESIDENT Has the PT tested + for MRSA If YES, has PT been informed?: No Medical Necessity Reason Pt with a Central, PICC or Fol: Yes The following are medically ne: PICC Line, Lau Catheter Reason for lau catheter: Strict I&O Subjective Review of Systems Mr. 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 ED due to palpitations and shortness of breath on 06/28/2025. He was found to have Afib with RVR and was placed on IV diltiazem. Patient subsequently entered in cardiac arrest with possible V-tach or Torsades de Pointes, achieving ROSC after 8 minutes of CPR, he was intubated and started on Amiodarone drip, which was later discontinued due to prolonged QTc. He was admitted for further evaluation and management. Past medical history: Hypertension, dyslipidemia, diabetes, paroxysmal atrial fibrillation diagnosed in 2016 (chads Vasc 7), 2020 CVA Past surgical history: Appendectomy Family history: Two brothers had heart disease requiring CABG at the age of 40 and 50 respectively, brother had lung cancer, mother had breast cancer Social history: with . Ex tobacco abuse (eight pack-year history of smoking) quit 30 years ago. Denies current tobacco, alcohol and other drug abuse Allergies: Denies Home medication: Pradaxa 150 mg p.o. daily, atorvastatin 40 mg p.o. daily, hydrochlorothiazide 12.5 mg p.o. daily, lisinopril 20 mg p.o. daily, glipizide, metformin a 1000 mg p.o. b.i.d., metoprolol (he quit taking for four months since it made him tired). 08/02/2025: The patient is seen in the ICU. He is awake, alert, with tracheostomy in place. No pressors or sedation at this time. He is afebrile, normocardic, and hypertensive. BMP and Blood gases are stable. The patient has been accepted to [facility] and will be transferred today. 08/01/2025: The patient is seen in ICU. He is awake, alert, with tracheostomy in place. Not on pressors or sedation. Has remained afebrile normocardic, and hypertensive. Labs are stable. Patient's lisinopril dose was increased for better blood pressure control. PT has been working with on mobilization exercises with the patient. He is pending bed at [facility]. Objective vital signs Vital Sign Date Time Temp Pulse Resp B/P (MAP) Pulse Ox O2 Delivery O2 Flow Rate FiO2 08/02/25 11:15 74 25 97 08/02/25 10:00 T-piece 6 28 28 08/02/25 00:00 98.9 98.9 Total Intake and Output 08/01/25 08/01/25 08/02/25 15:00 23:00 07:00 Intake Total 150 ml 860 ml 825 ml Output Total 900 ml 850 ml Balance 150 ml -40 ml -25 ml medications Current Medications Medications Dose Ordered Sig/Jesse Route Start Time Stop Time Status Last Admin Dose Admin Insulin Human Regular HS SC 06/29/25 22:00 Cancel Insulin Human Regular AC SC 06/29/25 17:00 Cancel Insulin Glargine 12 units HS SC 07/06/25 22:00 08/01/25 22:45 12 UNITS Polyethylene Glycol 17 gm DAILY PO 07/08/25 10:00 08/02/25 09:01 17 GM Sennosides 8.6 mg HS PO 07/10/25 22:00 07/31/25 22:22 8.6 MG Lactulose 30 ml DAILY PO 07/12/25 10:00 07/23/25 09:03 30 ML Empaglifozin 10 mg DAILY PO 07/14/25 10:00 08/02/25 08:59 10 MG Sodium Chloride 10 ml QSHIFT@10,22 IV 07/14/25 22:00 08/02/25 09:01 10 ML Metoprolol Tartrate 25 mg BID PO 07/20/25 22:00 08/02/25 08:59 25 MG Labetalol HCl 10 mg Q4HP PRN IV 07/20/25 15:00 07/20/25 16:20 10 MG Purified Water 200 ml Q6HR GT 07/22/25 18:00 08/02/25 06:07 200 ML Clopidogrel Bisulfate 75 mg DAILY PO 07/29/25 10:00 08/02/25 08:59 75 MG Aspirin 81 mg DAILY PO 07/29/25 10:00 08/02/25 08:59 81 MG Diagnostic Test (Pha) 1 strip Q6HR 07/29/25 18:00 08/02/25 06:07 1 STRIP Insulin Human Regular Q6HR SC 07/29/25 18:00 08/02/25 06:19 2 UNITS Dextrose 50 ml UD PRN IV 07/29/25 15:00 Enteral Nutritional Formula 1,000 ml 45ML/HR GT 07/31/25 19:45 Lisinopril 10 mg DAILY GT 08/02/25 10:00 08/02/25 09:01 10 MG Acetaminophen 650 mg Q6HP PRN GT 08/01/25 17:00 Acetaminophen/ Hydrocodone Bitart 1 tab Q6HPRN PRN PO 08/02/25 08:30 Lidocaine 1 patch DAILY PRN TOP 08/02/25 08:30 Examination General: Awake, alert, complies with commands HEENT: Normocephalic, atraumatic, moist mucous membranes, presence of NG tube, presence of tracheostomy with dried blood Respiratory/pulmonary: Clear lungs bilaterally, vesicular murmurs present in almost all lung roberts, no associated crackles or wheezes. Cardiovascular: Normal heart sounds S1 and S2 with no associated murmurs Abdomen: Abdomen nondistended, there is no pain to palpation in any of the abdominal quadrants, no palpable masses. Right flank bruise Extremities: Edema noted in bilateral hands, bilateral erythematous and ulcerated lesions. Skin: No rashes or pruritus, there is no sacral edema present at this time Neurologic: Alert, compliant with commands, strength in right hand and leg 1/5, strength in left hand and leg 4/5 laboratory and microbiology Laboratory Tests 08/02/25 03:24 08/01/25 03:05 Test 08/02/25 03:24 Range/Units Serum Glucose 131 H 74-106 mg/dL Microbiology Date/Time Source Procedure Growth Status 07/27/25 05:00 Urine - Lau Port Urine Culture - Final Presumptive Maria Eugenia krusei Complete 07/20/25 17:43 Sputum Gram Stain - Final Complete 07/20/25 17:43 Respiratory Culture - Final Pseudomonas aeruginosa Complete 07/11/25 14:17 Blood Blood Culture - Final NO GROWTH AFTER 5 DAYS OF INCUBATION. Complete 06/29/25 04:30 Nose MRSA Screen - Final Complete Problem List/Assessment/Plan Problem List/Assessment/Plan Neurology # Sedated - Fentanyl off - Versed off - Propofol off # Acute metabolic encephalopathy # History of CVA-with residual aphasia, right-sided deficit Cardiovascular #ROSC s/p Cardiac arrest and CPR - Patient had Vtach or Torsades de Pointes on 06/28/2025 - ROSC post CPR - Patient had VFib on 07/21/2025 - ROSC post CPR #Newly diagnosed coronary artery disease - triple-vessel disease #Dyslipidemia #NSTEMI type 1 status post PCI - S/p PCI x 4 STANLEY in circumflex 06/29/2025 - S/p PCI x 3 STANLEY in LAD 07/05/2025 - S/p Unsuccessful PTCA of mid RCA, unsuccessful cardioversion - Cardiology has been reached out to to determine possibility of second attempt - Aspirin 81 mg, Clopidogrel 74 mg, Atorvastatin 40 mg #Prolonged QT - Avoid Qt prolonging medications #Paroxysmal atrial fibrillation with RVR - Digoxin 250 mcg, discontinued 07/25/2025 - Metoprolol 12.5 mg p.o. b.i.d. - Micra leadless pacemaker placed, interrogated by [employer] 07/25/2025, currently set at 60 . #End Stage Heart Failure - Echocardiogram (06/29/2025): lvef 20%, moderate LV enlargement, severe end stage HF, RV dysfunction, aortic sclerosis, moderate MAC, mild cathy regurg, mild tricuspid regurg ,moderate pulm htn - Jardiance 10 mg NG daily - Lisinopril 10 mg NG daily - Metoprolol 12.5 mg NG BID daily - Furosemide 20 mg NG daily - Potassium 10 mEq NG daily - Per cardio, Spironolactone to be started once blood pressure is more stable # Left Pleural Effusion: - Chest Xray: The cardiac silhouette is enlarged. The lungs demonstrate bilateral patchy airspace opacities. The pulmonary vasculature is prominent. Moderate bilateral pleural effusions, [id number]-klwftro-[id number]-left. There is no pneumothorax. - Lasix 20 mg IV once #Moderate Pulmonary Hypertension #Venous thrombus in left cephalic vein -Avoid using left arm for blood pressure measurements Respiratory # Ventilator -intubated (06/28/2024) -extubated (07/20/2025) -reintubated (07/20/2025) -on [facility] vent : VCAC Mode RR 18 TV 400ml, PEEP Of 5 and FiO2 of 35% -S/p Tracheostomy 07/26/2025 - Pinon 5 mg/325 mg NG q6 hours PRN has been added for pain # Acute hypoxic respiratory failure - Ventilator settings: AC mode, RR 18, VT 400, PEEP 5, FiO2 35% - S/p Tracheostomy 07/26/2025 - Will begin collar trial with 1 hour BID # Pneumonia (gram +/ gram -/ aspiration) # Ruled out Ventilator associated pneumonia - Chest x-ray: Similar bilateral inferior graded opacities, likely a combination of airspace disease and pleural effusion. - Sputum culture 07/03/2025: Pseudomonas and Serratia - Sputum 07/21/2025: Pseudomonas aeruginosa, CRE has been ruled out - Ceftolozone - tazobactam (zerbaxa) 07/23/2025 - 07/31/2025 - Meropenem (07/04-07/19) - Zosyn (07/19-07/23) - Vancomycin (07/02/2025- 07/20/2025) GI #Transaminitis - Monitor #Acalculous cholecystitis ruled out - Abdominal US 07/24/2025: No sonographic evidence of gallstones or acute cholecystitis. Hepatic steatosis. Trace left pleural effusion. # Peptic ulcer prophylaxis -Pantoprazole 40 mg IV daily # Lau catheter draining clear urine # Complicated UTI - Micafungin 100 mg IV daily - Urine culture 07/27:Presumptive Maria Eugenia krusei Nephrology #KEANU likely hemodynamically mediated/VM, resolved N -Lasix was given -Strict Is and Os -Avoid nephrotoxic drugs Infectious disease #Septic shock secondary to pneumonia (gram +/ gram -/ aspiration) -Chest x-ray: Similar bilateral inferior graded opacities, likely a combination of airspace disease and pleural effusion. 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 - Blood cultures: negative, culture from 07/01/2025 possibly contaminated - Urine culture: No growth after 48 hours - Sputum culture 06/29: Normal oropharyngeal jessica - Ceftolozone - tazobactam (zerbaxa) 07/23/2025 - 07/31/2025 - Meropenem (07/04-07/19) - Zosyn (07/19-07/23) - Vancomycin (07/02/2025- 07/20/2025) -Patient is no longer on pressors #Complicated UTI - Micafungin (07/27): 100 mg IV daily -Urine culture 07/27:Presumptive Maria Eugenia krusei Hem/onc # Mild normocytic anemia - Monitor H&H Endocrine #Uncontrolled diabetes mellitus, HbA1c 10.6 - Insulin sliding scale DVT prophylaxis: Lovenox held due to previous rectus femoris hematoma PUD prophylaxis: Protonix 40 mg IV daily Nutrition: Vital High Protein Formula Lines Airway: Intubated via ETT on 06/29. RE intubated on 07/21. Trach: 07/26 Vascular Access: Central line 06/29, removed PICC line Lau: 06/29, Exchanged: 07/27 Drips: Fentanyl off Patient will be transferred to [facility] to be received by Dr. Ríos. Critical care time 53 minutes excluding procedure. Code status discussed greater than 20 minutes: Full CODE STATUS. Family at bedside explained about the condition of the patient Plan discussed with Dr. Aguirre Plan discussed with: Spouse, Other My Orders My Orders Orders - DALIA VALDOVINOS RESIDENT Procedure Category Date Status Time Discharge DISCHARGE 08/01/25 Transmitted 15:41 Abg W/ Co-Ox RT 08/02/25 Logged 04:00 Chest Xray 1 View XY 08/02/25 Resulted 04:00 Lisinopril Tablet PHA 08/02/25 In Process (Zestril Tablet) 10:00 Acetaminophen PHA 08/01/25 In Process Solution Oral 17:00 Hydrocodone-Acet PHA 08/02/25 In Process 5/325mg Tab (Pinon 08:30 Lidocaine 5% Topical PHA 08/02/25 In Process Patch (Lidoderm 5% 08:30 Dietary Evaluation Review Comments: 1. Protein needs based on 1.2-1.5g/protein/kg IBW d/t low GFR 2. While being intubated, offer TF Vital HP @45ml/hr, in 24 hr, Pt will receive 94g protein, 1080lkcal 903ml free water, meeting pts needs at 97% protein and 100% energy. 3. Consider TPN to meet pt's needs if Pt does not tolerate TF well. 4. Reassess when pt extubated, advance to [facility]-60 PO diet after passing a [employer] evluation. Expected Outcomes/Goals: off intubation, advance to CCHO-60 Cardiac diet, gradual wt loss Date of Service: Aug 02, 2025 Billing Provider: YOBANY AGUIRRE MD Common Visit Codes: [id number] CARE 30-74 MIN DALIA VALDOVINOS RESIDENT Aug 02, 2025 13:07 YOBANY AGUIRRE MD Aug 03, 2025 11:30
--- NOTE | 2025-08-03 17:54 | DVHPN2 ---
Consult Progress Note Objective vital signs Vital Sign Date Time Temp Pulse Resp B/P (MAP) Pulse Ox O2 Delivery O2 Flow Rate FiO2 08/02/25 21:32 94 133/88 08/02/25 20:03 98.9 27 99 98.9 08/02/25 20:00 28 08/02/25 20:00 Trach Collar 6 T-piece Total Intake and Output 08/02/25 08/02/25 08/03/25 15:00 23:00 07:00 Intake Total 1520 ml Output Total 1300 ml Balance 220 ml medications Current Medications Medications Dose Ordered Sig/Jesse Route Start Time Stop Time Status Last Admin Dose Admin Insulin Human Regular HS SC 06/29/25 22:00 Cancel Insulin Human Regular AC SC 06/29/25 17:00 Cancel laboratory and microbiology Laboratory Tests 08/02/25 03:24 08/01/25 03:05 Test 08/02/25 03:24 Range/Units Serum Glucose 131 H 74-106 mg/dL Problem List/Assessment/Plan Problem List/Assessment/Plan ASSESSMENT AND PLAN: ID Problem List: -Pneumonia with sputum cultures positive for Pseudomonas aeruginosa and Serratia marcescens (hospital-acquired/ventilator-associated context) -Acute respiratory failure requiring endotracheal intubation and mechanical ventilation -Recurrent ventricular arrhythmias (ventricular tachycardia and torsades de pointes) with cardiac arrest x2 (ROSC after 8 minutes; ROSC after 6 minutes); prolonged QTc -Paroxysmal atrial fibrillation with RVR; unsuccessful DC cardioversion during this admission -Severe multivessel coronary artery disease with ischemic cardiomyopathy; subacute thrombosis of the circumflex -s/p PCI: successful PTCA/stent of occluded circumflex; subsequent revascularization procedures to LAD and mid RCA (per dates below) -Sick sinus syndrome/tachyarrhythmia; [employer] permanent pacemaker implanted into the RV septum without complication -Hyperbilirubinemia (total bilirubin up to 2.2) with otherwise normal liver enzymes -Rectus abdominis hematoma on CT A/P -Type 2 diabetes mellitus -Hypertension -Prior ischemic stroke (2019) with chronic right-sided deficits; limited mobility (assisted/wheelchair) Assessment: This is a 74-year-old male with hypertension, paroxysmal AF (2016; prior electrical cardioversion), and ischemic stroke in 2019 with chronic right-sided deficits, who presented with AF with RVR and progressed to ventricular arrhythmias (VT, torsades) with cardiac arrests requiring ACLS (ROSC at 8 minutes; later ROSC at 6 minutes). He is intubated and sedated with a prolonged QTc; on amiodarone with magnesium. Coronary angiography showed severe triple- vessel CAD with subacute circumflex thrombosis, ischemic cardiomyopathy, and elevated LVEDP; he underwent PCI to the circumflex with additional staged revascularizations to the LAD and mid RCA. DC cardioversion for AF was unsuccessful. A permanent Medtronic pacemaker was implanted in the RV septum for sick sinus/tachyarrhythmia. Pulmonary course notable for mixed pulmonary opacities/edema on imaging. Sputum cultures grew Pseudomonas aeruginosa and Serratia marcescens. He received broad- spectrum therapy (vancomycin with cefepime/Zosyn, later vancomycin with meropenem for inadequate response). Leukopenia on 07/19 resolved; Tmax 99.7F on 07/19 without documented fevers otherwise. Total bilirubin kenia to 2.2 with otherwise normal liver enzymes. CT A/P showed a rectus abdominis hematoma. He remains intubated with FiO2 ~35%. 07/24: off all pressors 07/25: RUQ wo acute cholecystitis 07/26: sp tracheostomy, 07/30: amy krusei on urine culture Plan: - continue micafungin for now, ensure lau catheter has been exchanged, limit to 3-5 days course. -Antimicrobial therapy: -continue ceftolozanetazobactam (Zerbaxa) to target Pseudomonas per culture context. -Proposed duration for current targeted therapy: 10 days -Respiratory care: -Continue mechanical ventilation per ICU/pulmonology with goal SpO2 >92%. -Monitor FiO2 requirements and sputum burden; implement frequent airway secretion clearance. -Daily chest radiograph to track resolution of opacities. -Hemodynamics: -Maintain MAP ?65 mmHg per ICU protocol. -Hepatobiliary: -Obtain abdominal ultrasound to evaluate elevated bilirubin and assess for acalculous cholecystitis. -Arrhythmia/CV management: -Defer to cardiology for ongoing management of severe CAD, ischemic cardiomyopathy, recurrent AF, and pacemaker programming. -Strict avoidance of QT-prolonging agents (e.g., fluoroquinolones) given torsades and prolonged QTc history. -Thrombosis/bleeding: -Acknowledge rectus abdominis hematoma; coordinate anticoagulation/antiplatelet strategy with cardiology/ICU in context of recent PCI, DAPT, and bleeding risk. -Monitoring/Follow-up: -Trend bilirubin/LFTs. -Monitor CBC and renal function while on antipseudomonal therapy. -Repeat sputum cultures based on clinical course. Authorized and Performed by: lennie gaston md Total critical care time: Approximately 76 minutes Due to a high probability of clinically significant, life threatening deterioration, the patient required my highest level of preparedness to intervene emergently and I personally spent this critical care time directly and personally managing the patient. This critical care time included obtaining a history; examining the patient; pulse oximetry; ordering and review of studies; arranging urgent treatment with development of a management plan; evaluation of patient's response to treatment; frequent reassessment; and, discussions with other providers. This critical care time was performed to assess and manage the high probability of imminent, life-threatening deterioration that could result in multi-organ failure. It was exclusive of separately billable procedures and treating other patients and teaching time. Isolation Precautions: standard Assessment and plan discussed with the care team. Plan subject to change pending new data; updates may be added as an addendum. Thank you for the consult. ID will continue to follow. Please contact Infectious Diseases for any questions or concerns. )))))))))))))))))))))))))))))))))))))))))))))))))))))))))))))))))))))))))))))))) )))))))))))))))))))))))))))))))))))))))))))))))))))))))))) PHYSICAL EXAM: General: NAD Neck: Supple. No masses. HEENT: PERRL. Normal lids and conjunctiva. Moist mucous membranes. Oropharynx without lesions, exudates or excessive erythema. Normal appearance of the external aspects of the nose and ears. Heart: Regular rhythm, normal rate. No murmur. No lower extremity edema. Lungs: Mechanically ventilated via endotracheal tube. No wheezes. No crackles. Abdomen: Soft. Non-tender. Non-distended. No masses or abdominal hernia. Msk: No digital cyanosis. Normal strength and tone in all 4 limbs. Skin: Warm and dry, no rashes. Neuro: Sedated and intubated. No facial droop or slurred speech. Extra-ocular movements intact. Sensation intact to soft touch in all 4 limbs. Psych: Unable to assess due to intubation and sedation. Oriented to person, place, time, and situation: Unable to assess due to intubation and sedation. Dietary Evaluation Review Comments: 1. Protein needs based on 1.2-1.5g/protein/kg IBW d/t low GFR 2. While being intubated, offer TF Vital HP @45ml/hr, in 24 hr, Pt will receive 94g protein, 1080lkcal 903ml free water, meeting pts needs at 97% protein and 100% energy. 3. Consider TPN to meet pt's needs if Pt does not tolerate TF well. 4. Reassess when pt extubated, advance to CCHO-60 PO diet after passing a [employer] evluation. Expected Outcomes/Goals: off intubation, advance to CCHO-60 Cardiac diet, gradual wt loss LENNIE GASTON MD Aug 03, 2025 17:54
== END 2025-08-02 22:00 | DRG 3 ==
LOC: EDBD 12:04 → ER 12:13 → OVERFLOW 19:13 → DOU 06-29 02:50 → ICU CENTRL 06-29 09:35 → UNDODISIN 08-02 22:00
PROVIDERS: ADMIT Internal Medicine; ATTEND Internal Medicine
PROC: 0270366 Dilation of Coronary Artery, One Artery, Bifurcation, with Three Drug-eluting Intraluminal Devices, Percutaneous Approach (ICD-10-PCS; principal; 2025-06-29)
PROC: 5A12012 Performance of Cardiac Output, Single, Manual (ICD-10-PCS; 2025-06-29)
PROC: 5A1955Z Respiratory Ventilation, Greater than 96 Consecutive Hours (ICD-10-PCS; 2025-06-29)
PROC: 0BH17EZ Insertion of Endotracheal Airway into Trachea, Via Natural or Artificial Opening (ICD-10-PCS; 2025-06-29)
PROC: 5A2204Z Restoration of Cardiac Rhythm, Single (ICD-10-PCS; 2025-06-29)
PROC: B211YZZ Fluoroscopy of Multiple Coronary Arteries using Other Contrast (ICD-10-PCS; 2025-06-29)
PROC: B215YZZ Fluoroscopy of Left Heart using Other Contrast (ICD-10-PCS; 2025-06-29)
PROC: 027036Z Dilation of Coronary Artery, One Artery with Three Drug-eluting Intraluminal Devices, Percutaneous Approach (ICD-10-PCS; 2025-07-05)
PROC: B211YZZ Fluoroscopy of Multiple Coronary Arteries using Other Contrast (ICD-10-PCS; 2025-07-05)
PROC: 4A033BC Measurement of Arterial Pressure, Coronary, Percutaneous Approach (ICD-10-PCS; 2025-07-05)
PROC: B240ZZ3 Ultrasonography of Single Coronary Artery, Intravascular (ICD-10-PCS; 2025-07-05)
PROC: B211YZZ Fluoroscopy of Multiple Coronary Arteries using Other Contrast (ICD-10-PCS; 2025-07-12)
PROC: 30233N1 Transfusion of Nonautologous Red Blood Cells into Peripheral Vein, Percutaneous Approach (ICD-10-PCS; 2025-07-13)
PROC: 02HV33Z Insertion of Infusion Device into Superior Vena Cava, Percutaneous Approach (ICD-10-PCS; 2025-07-14)
PROC: B548ZZA Ultrasonography of Superior Vena Cava, Guidance (ICD-10-PCS; 2025-07-14)
PROC: 02HK3NZ Insertion of Intracardiac Pacemaker into Right Ventricle, Percutaneous Approach (ICD-10-PCS; 2025-07-19)
PROC: 5A1955Z Respiratory Ventilation, Greater than 96 Consecutive Hours (ICD-10-PCS; 2025-07-20)
PROC: 0BH17EZ Insertion of Endotracheal Airway into Trachea, Via Natural or Artificial Opening (ICD-10-PCS; 2025-07-20)
PROC: 5A09357 Assistance with Respiratory Ventilation, Less than 24 Consecutive Hours, Continuous Positive Airway Pressure (ICD-10-PCS; 2025-07-20)
PROC: 5A12012 Performance of Cardiac Output, Single, Manual (ICD-10-PCS; 2025-07-21)
PROC: 5A2204Z Restoration of Cardiac Rhythm, Single (ICD-10-PCS; 2025-07-21)
PROC: 0B110F4 Bypass Trachea to Cutaneous with Tracheostomy Device, Open Approach (ICD-10-PCS; 2025-07-26)
DX: A41.59 Other Gram-negative sepsis (principal); Z00.6 Encounter for examination for normal comparison and control in clinical research program; G93.41 Metabolic encephalopathy; I21.4 Non-ST elevation (NSTEMI) myocardial infarction; N17.0 Acute kidney failure with tubular necrosis; J69.0 Pneumonitis due to inhalation of food and vomit; R65.21 Severe sepsis with septic shock; J96.01 Acute respiratory failure with hypoxia; I50.23 Acute on chronic systolic (congestive) heart failure; J15.69 Pneumonia due to other Gram-negative bacteria; J15.9 Unspecified bacterial pneumonia; I46.9 Cardiac arrest, cause unspecified; D68.59 Other primary thrombophilia; Z99.11 Dependence on respirator [ventilator] status; I47.21 Torsades de pointes; N17.9 Acute kidney failure, unspecified; J90 Pleural effusion, not elsewhere classified; Z79.01 Long term (current) use of anticoagulants; I69.351 Hemiplegia and hemiparesis following cerebral infarction affecting right dominant side; E11.9 Type 2 diabetes mellitus without complications; E66.9 Obesity, unspecified; I27.20 Pulmonary hypertension, unspecified; I11.0 Hypertensive heart disease with heart failure; E87.4 Mixed disorder of acid-base balance; I48.20 Chronic atrial fibrillation, unspecified; I82.612 Acute embolism and thrombosis of superficial veins of left upper extremity; D75.839 Thrombocytosis, unspecified; I69.320 Aphasia following cerebral infarction; D64.9 Anemia, unspecified; I25.10 Atherosclerotic heart disease of native coronary artery without angina pectoris; E78.5 Hyperlipidemia, unspecified; I25.5 Ischemic cardiomyopathy; I48.0 Paroxysmal atrial fibrillation; I49.5 Sick sinus syndrome; R74.01 Elevation of levels of liver transaminase levels; E80.6 Other disorders of bilirubin metabolism; Z68.33 Body mass index [BMI] 33.0-33.9, adult; Z90.49 Acquired absence of other specified parts of digestive tract; Z80.3 Family history of malignant neoplasm of breast; Z87.891 Personal history of nicotine dependence; Z82.49 Family history of ischemic heart disease and other diseases of the circulatory system; Z80.1 Family history of malignant neoplasm of trachea, bronchus and lung
CPT/HCPCS: 33274; 36415; 36569; 36600; 70450; 71045; 74018; 74176; 76604; 76705; 76937; 80048; 80053; 80061; 80162; 80202; 80307; 81001; 82306; 82565; 82607; 82805; 82962; 83036; 83605; 83690; 83735; 83880; 84100; 84132; 84443; 84484; 85007; 85014; 85018; 85025; 85027; 85610; 85730; 86850; 86900; 86901; 86920; 87040; 87070; 87077; 87081; 87086; 87088; 87186; 87205; 92941; 92950; 92978; 93005; 93306; 93454; 93571; 93970; 94002; 94003; 94640; 94660; 94667; 96365; 96367; 96376; 97110; 97163; 99152; 99291; C1874; C1887; G0378; J1100; J1815; J2185; J2248; J2250; J2405; J2470; J2543; J2704; J3480; J7060; P9047; Q9967